=== PATIENT | male | born 1975 | race Caucasian/White ===

== ENCOUNTER 2024-06-24 13:42 | Emergency (ER) | payer OTHER, SELFPAY ==
[2024-06-24 14:01] VITALS: BP 210/130; PULSE 92; TEMP 36.7; O2SAT 97; BMI 39.6
--- NOTE | 2024-06-24 14:19 | XR_ITS ---
The [place] [address] Patient Name: MAGALY CARSON MRN: [id number] date: 1975 Sex: M Assigned Patient Location: ER Current Patient Location: ER Accession/Order Number: [id number] Exam Date: 06/24/2024 14:51 Report Date: 06/24/2024 15:12 At the request of: WILFRID ZIMMERMAN Procedure: XR lumbar spine 2-3V EXAMINATION: XR lumbar spine 2-3V HISTORY: fall COMPARISON: No relevant comparison available. FINDINGS: BONES: Normal alignment with no acute fracture or spondylolisthesis. Moderate spondylosis. Moderate to severe facet osteoarthropathy DISC SPACES: Normal. No significant disc height narrowing, subluxation, or endplate abnormality. PARASPINOUS: Negative. No paraspinous abnormality is seen. OTHER: Vascular calcifications XR/XR lumbar spine 2-3V IMPRESSION: Moderate degenerative changes. Electronically authenticated by: NOEMI MARTINEZ Date: 06/24/2024 15:12
--- NOTE | 2024-06-24 14:19 | XR_ITS ---
The [address] [address] Patient Name: MAGALY CARSON MRN: [id number] date: 1975 Sex: M Assigned Patient Location: ER Current Patient Location: ER Accession/Order Number: [id number] Exam Date: 06/24/2024 14:51 Report Date: 06/24/2024 15:14 At the request of: WILFRID ZIMMERMAN Procedure: XR hip LT 2V w/ pelvis PROCEDURE: XR hip LT 2V w/ pelvis COMPARISON: None. HISTORY: fall FINDINGS: BONES:No acute fracture or dislocation. Mild bilateral hip osteoarthropathy with marginal osteophyte formation and joint space narrowing SOFT TISSUES:Negative. No visible soft tissue swelling. EFFUSION:None visible. OTHER: Negative. XR/XR hip LT 2V w/ pelvis IMPRESSION: No acute fracture. Electronically authenticated by: NOEMI MARTINEZ Date: 06/24/2024 15:14
--- NOTE | 2024-06-24 14:20 | ED.GENADUL1 ---
HPI HPI - General Adult General Chief complaint: Fall Stated complaint: FALL AT WORK Time Seen by Provider: 06/24/24 14:07 Source: patient Mode of arrival: walk-in Limitations: no limitations History of Present Illness HPI narrative: Patient is a 48-year-old male who presents to the emergency department for pain in the left low back into the left hip. 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 He is able to ambulate but reports significant pain with doing so. He has no peripheral paresthesias or urinary incontinence. He denies head injury and has no pain to the head, neck or upper back. No medications taken prior to arrival. He is noted to be hypertensive at initial interview, he states he does not take any blood pressure medications. No other focal medical complaints. Related Data Home Medications ?Medication ?Instructions ?Recorded ?Confirmed No Known Home Medications 06/24/24 06/24/24 Previous Rx's ?Medication ?Instructions ?Recorded hydrocodone 5 mg-acetaminophen 325 1 tab PO Q6H PRN pain 3 days #12 06/24/24 mg tablet tabs ketorolac 10 mg tablet 10 mg PO TID PRN pain #10 tabs 06/24/24 methocarbamol 750 mg tablet 750 mg PO TID PRN pain #20 tabs 06/24/24 Allergies Allergy/AdvReac Type Severity Reaction Status Date / Time Penicillins Allergy Severe Hives Verified 06/24/24 14:07 Opioid HPI Opioid Management Most Recent Opioid Data: Last Pain Scale 10 06/24/24 14:29 06/24/24 Last MAR Pain Assessment 06/24/24 14:29 Review of Systems ROS Constitutional Denies: fever or chills Ears, nose, mouth, and throat Denies: neck pain Cardiovascular Denies: chest pain Respiratory Denies: shortness of breath Gastrointestinal Denies: nausea or vomiting Musculoskeletal Reports: back pain, extremity pain and joint pain; Denies: neck pain or extremity swelling Integumentary/Breast Denies: rash Neurological Denies: numbness in extremities or weakness in extremities Hematologic/Lymphatic Denies: easy bruising or easy bleeding PFSH PFS Social History Little interest or pleasure in doing things: not at all Feeling down, depressed, or hopeless: not at all Exam Narrative Exam Narrative: Gen.: Awake, alert, in no distress Head: Normocephalic, atraumatic ENT: Moist mucous membranes Respiratory: No respiratory distress Back: Diffuse mild tenderness of the lumbar spine and paraspinal muscles of the left low back as well as the left posterior hip. No bony point tenderness or obvious deformity. Extremities: Moves extremities equally, normal dorsiflexion and plantarflexion of the left lower extremity with normal hip flexion and no decrease in sensation to the medial left thigh. Psych: Normal mood and affect Neuro: No focal neuro deficit Skin: Warm, dry, intact Constitutional Vital Signs, click to edit/add: Last Vital Signs Temp 98.1 F 06/24/24 14:01 Pulse 92 H 06/24/24 14:01 Resp 20 06/24/24 14:01 BP 180/110 H 06/24/24 15:17 Pulse Ox 97 06/24/24 14:01 Course Vital Signs Vital signs: Vital Signs Temperature 98.1 F 06/24/24 14:01 Pulse Rate 92 H 06/24/24 14:01 Respiratory Rate 20 06/24/24 14:01 Blood Pressure 210/130 H 06/24/24 14:01 Pulse Oximetry 97 06/24/24 14:01 Temperature 98.1 F 06/24/24 14:01 Pulse Rate 92 H 06/24/24 14:01 Respiratory Rate 20 06/24/24 14:01 Blood Pressure 180/110 H 06/24/24 15:17 Pulse Oximetry 97 06/24/24 14:01 Medical Decision Making [facility] Narrative Medical decision making narrative: Patient was treated with analgesics in the ER, blood pressure did improve on recheck, however he should follow closely with his primary care provider for reevaluation of his blood pressure. He was made aware of this. X-rays of the lumbar spine and pelvis, left hip are unremarkable. Patient was given a short course of analgesics for home. Follow-up with occupational health and return to the ER if symptoms change or worsen. SHARED APC VISIT, PHYSICIAN ATTESTATION: [id number] I performed a substantive part of the MDM during the patient?s E/M visit. I personally evaluated and examined the patient. I personally made or approved the documented management plan and acknowledge its risk of complications. Medical Records Medical records reviewed: Yes I reviewed the patient's medical records Imaging Data XR lumbar: Attestation: I have reviewed the pertinent imaging results. Radiologist's impression: ITS Impressions Hip/Pelvis X-Ray 06/24/24 14:19 IMPRESSION: No acute fracture. Electronically authenticated by: NOEMI MARTINEZ Date: 06/24/2024 15:14 Lumbar Spine X-Ray 06/24/24 14:19 IMPRESSION: Moderate degenerative changes. Electronically authenticated by: NOEMI MARTINEZ Date: 06/24/2024 15:12 Discharge Plan Discharge Chief Complaint: Fall Clinical Impression: Fall, Low back pain Patient Disposition: Home, Self-Care Time of Disposition Decision: 15:34 Condition: Good Prescriptions / Home Meds: New hydrocodone-acetaminophen 5-325 mg tablet 1 tab PO Q6H PRN (Reason: pain) 3 Days Qty: 12 0RF Rx Instructions: DX: M54.5 ketorolac 10 mg tablet 10 mg PO TID PRN (Reason: pain) Qty: 10 0RF methocarbamol 750 mg tablet 750 mg PO TID PRN (Reason: pain) Qty: 20 0RF No Action No Known Home Medications Print Language: Tunisian Instructions: Acute Low Back Pain (ED) Additional Instructions: Follow up with occupational health for your injury, please recheck with your doctor for your blood pressure Referrals: Physician,Non-Staff, MD [Primary Care Provider] - 1 week
[2024-06-24] MEDS: KETOROLAC TROMETHAMINE 60 MG/2 ML VIAL IM (14:28)
[2024-06-24] MEDS: HYDROCODONE/ACET 5-325 MG TABLET 1 TAB PO (14:29)
[2024-06-24] MEDS: ORPHENADRINE 60 MG/ 2 ML VIAL IM (14:29)
[2024-06-24 15:17] VITALS: BP 180/110
== END 2024-06-24 15:57 | disposition home or self-care (01) ==
PROVIDERS: Emergency Provider Emergency Medicine
DX: M54.50 Low back pain, unspecified (principal); M25.552 Pain in left hip
CPT/HCPCS: 72100; 73502; 96372; 99284; J1885; J2360

== ENCOUNTER 2024-09-28 06:36 | Inpatient (IN) | payer BC, SELFPAY ==
[2024-09-28] VITALS (25 sets, daily range): BP systolic 145–218; BP diastolic 74–139; PULSE 60–102; TEMP 36.6–37.1; O2SAT 88–98; BMI 38.5; BMI 40.5
--- OUTSIDE RECORDS SUMMARY | 2024-09-28 06:43 | XMS_ITS | CCD ---
[facility] Name Value Interpretation Reference Range Facil ity COVID-19 Antigenon 1 COVID-19 Antigen Reason for Exam Fever, unspecified fever cause;Body aches Nasal Reason for Exam: Fever, unspecified fever cause;Body aches Healthcare Worker?: No : Nasal Rebecca Reference Rebecca Reference Negative SARS-CoV+SARS-CoV-2 (COVID-19) Ag [Presence] in Respiratory specimen by Rapid immunoassay Negative for SARS Antigen by SYED COVID19 Blank Space Rebecca Disclaimer Negative results, from patients with symptom Rebecca Disclaimer onset beyond five days, should be treated as Rebecca Disclaimer presumptive and confirmation with a molecular Rebecca Disclaimer assay, if necessary, for patient management, Rebecca Disclaimer may be performed. Negative results do not rule Rebecca Disclaimer out COVID-19 and should not be used as the sole Rebecca Disclaimer basis for treatment or patient management Rebecca Disclaimer decisions, including infection control decisions. Rebecca Disclaimer Negative results should be considered in the Rebecca Disclaimer context of a patient's recent exposures, history Rebecca Disclaimer and the presence of clinical signs and symptoms Rebecca Disclaimer consistent with COVID-19. COVID19 Blank Space Rebecca Disclaimer The Rebecca SARS Antigen SYED does not differentiate Rebecca Disclaimer between SARS-CoV and SARS-CoV-2. COVID19 Blank Space Rebecca Disclaimer This test was developed and its performance Rebecca Disclaimer characteristic determined by [employer] and Rebecca Disclaimer validated at [facility]. This Rebecca Disclaimer test has not been FDA cleared or approved. This Rebecca Disclaimer test has been authorized by FDA under an Emergency Use Rebecca Disclaimer Authorization (EUA). This test has been validated Rebecca Disclaimer in accordance with the FDA's Guidance Document (Policy Rebecca Disclaimer for Diagnostics Testing in Laboratories Certified to Rebecca Disclaimer Perform High Complexity Testing under CLIA prior to Rebecca Disclaimer Emergency Use Authorization for Coronavirus Rebecca Disclaimer iseas during the Public Health Emergency) Rebecca Disclaimer issued on September 19, 2019. This test is only authorized Rebecca Disclaimer for the duration of time the declaration that Rebecca Disclaimer circumstances exist justifying the authorization of Rebecca Disclaimer the emergency use of in vitro diagnostic tests for Rebecca Disclaimer detection of SARS-CoV-2 virus and/or diagnosis of Rebecca Disclaimer COVID-19 infection under section 564(b)(1) of the Rebecca Disclaimer Act, 21 U.S.C. 360bbb-3(b)(1), unless the Rebecca Disclaimer authorization is terminated or revoked sooner. PERFORMED BY: [facility] [address] [place] [address] PATHOLOGIST CLAY TEMPERER PATTI DE M.D. Normal [facility] Comment on above: Performed By: #### S NATALYA COVID-19 REBECCA #### [facility] [address] [place] [id number] [facility] Rebecca Ag Negativeon 01-26-20 21 Rebecca Ag Negative Negative Normal Negative [facility] Comment on above: Result Comment: This is a duplicate Rebecca SARS Antigen (SYED) result to be used for statistical tracking purpose only. PERFORMED BY: [place] [address] PATHOLOGIST CLAY TEMPERER PATTI DE M.D. Performed By: #### S OFIANEG, COVID-19 REBECCA #### [address] Complete Blood Count Auto Di ffon 10-26-2020 Basophils (Bld) [#/Vol] 0.1 10*3/uL Normal 0.0-0.2 [facility] Comment on above: Order Comment: Reaso n for Exam Essential hypertension Result Comment: PERF ORMED BY: [place] [address] PATHOLOGIST CLAY TEMPERER PATTI DE M.D. Performed By: #### V [id number], CMP, CBC, LIPID #### [address] Basophils/100 WBC (Bld) 1.0 % Normal . [facility] Comment on above: Order Comment: Reaso n for Exam Essential hypertension Performed By: #### V [id number], CMP, CBC, LIPID #### [address] Eosinophils (Bld) [#/Vol] 0.4 10*3/uL Normal 0.0-0.45 [facility] Comment on above: Order Comment: Reaso n for Exam Essential hypertension Performed By: #### V [id number], CMP, CBC, LIPID #### [address] Eosinophils/100 WBC (Bld) 4.7 % Normal . [facility] Comment on above: Order Comment: Reaso n for Exam Essential hypertension Performed By: #### V [id number], CMP, CBC, LIPID #### [address] Erythrocyte distribution width (RBC) [Ratio] 14.0 % Normal 12.0-14.8 [facility] Comment on above: Order Comment: Reaso n for Exam Essential hypertension Performed By: #### V [id number], CMP, CBC, LIPID #### [address] Hematocrit (Bld) [Volume fraction] 47.4 % Normal 38.8-50.0 [facility] Comment on above: Order Comment: Reaso n for Exam Essential hypertension Performed By: #### V [id number], CMP, CBC, LIPID #### [address] Hemoglobin (Bld) [Mass/Vol] 16.3 g/dL Normal 13.0-17.0 [facility] Comment on above: Order Comment: Reaso n for Exam Essential hypertension Performed By: #### V [id number], CMP, CBC, LIPID #### [address] Lymphocytes (Bld) [#/Vol] 2.3 10*3/uL Normal 1.00-4.8 [facility] Comment on above: Order Comment: Reaso n for Exam Essential hypertension Performed By: #### V [id number], CMP, CBC, LIPID #### [address] Lymphocytes/100 WBC (Bld) 26.7 % Normal . [facility] Comment on above: Order Comment: Reaso n for Exam Essential hypertension Performed By: #### V [id number], CMP, CBC, LIPID #### [address] MCH (RBC) [Entitic mass] 30.8 pg Normal 27.5-35.2 [facility] Comment on above: Order Comment: Reaso n for Exam Essential hypertension Performed By: #### V [id number], CMP, CBC, LIPID #### [address] MCV (RBC) [Entitic vol] 89.7 fL Normal 83.5-101 [facility] Comment on above: Order Comment: Reaso n for Exam Essential hypertension Performed By: #### V [id number], CMP, CBC, LIPID #### [facility] [address] Mean Corpuscular HGB Conc 34.4 g/dL Normal 32.5-35.6 [facility] Comment on above: Order Comment: Reaso n for Exam Essential hypertension Performed By: #### V [id number], CMP, CBC, LIPID #### [facility] [address] Monocytes (Bld) [#/Vol] 0.9 10*3/uL High 0.0-0.8 [facility] Comment on above: Order Comment: Reaso n for Exam Essential hypertension Performed By: #### V [id number], CMP, CBC, LIPID #### [facility] [address] [place] [address] Monocytes/100 WBC (Bld) 10.4 % Normal . [facility] Comment on above: Order Comment: Reaso n for Exam Essential hypertension Performed By: #### V [id number], CMP, CBC, LIPID #### [address] Neutrophils (Bld) [#/Vol] 5.0 10*3/uL Normal 1.8-7.7 [facility] Comment on above: Order Comment: Reaso n for Exam Essential hypertension Performed By: #### V [id number], CMP, CBC, LIPID #### [address] Neutrophils/100 WBC (Bld) 57.2 % Normal . [facility] Comment on above: Order Comment: Reaso n for Exam Essential hypertension Performed By: #### V [id number], CMP, CBC, LIPID #### [facility] [address] [place] [address] [place] Nucleated RBC/100 WBC (Bld) [Ratio] 0.1 % Normal 0-0.5 [facility] Comment on above: Order Comment: Reaso n for Exam Essential hypertension Performed By: #### V [id number], CMP, CBC, LIPID #### [place] [address] [place] Platelet mean volume (Bld) [Entitic vol] 11.0 fL High 6.6-10.1 [facility] Comment on above: Order Comment: Reaso n for Exam Essential hypertension Performed By: #### V [id number], CMP, CBC, LIPID #### [facility] [address] Platelets (Bld) [#/Vol] 159 10*3/uL Normal 150-450 [facility] Comment on above: Order Comment: Reaso n for Exam Essential hypertension Performed By: #### V [id number], CMP, CBC, LIPID #### [facility] [address] RBC (Bld) [#/Vol] 5.29 10*6/uL Normal 3.90-5.60 [facility] Comment on above: Order Comment: Reaso n for Exam Essential hypertension Performed By: #### V [id number], CMP, CBC, LIPID #### [facility] [address] [place] [address] WBC (Bld) [#/Vol] 8.8 10*3/uL Normal 4.5-11.0 [facility] Comment on above: Order Comment: Reaso n for Exam Essential hypertension Performed By: #### V [id number], CMP, CBC, LIPID #### [facility] [address] [place] [address] Comprehensive Metabolic Pane shirley 10-26-2020 Albumin [Mass/Vol] 3.9 g/dL Normal 3.2-5.5 [facility] Comment on above: Order Comment: PT FA STED 11 HRS Reason for Exam Essential hypertension Reason for Exam Essential hypertension;Vitamin D deficiency Performed By: #### V [id number], CMP, CBC, LIPID #### [facility] [address] Albumin/Globulin [Mass ratio] 1.6 {ratio} Normal [facility] Comment on above: Order Comment: PT FA STED 11 HRS Reason for Exam Essential hypertension Reason for Exam Essential hypertension;Vitamin D deficiency Performed By: #### V [id number], CMP, CBC, LIPID #### [facility] [address] [place] [address] [place] ALP [Catalytic activity/Vol] 75 U/L Normal 32-92 [facility] Comment on above: Order Comment: PT FA STED 11 HRS Reason for Exam Essential hypertension Reason for Exam Essential hypertension;Vitamin D deficiency Performed By: #### V [id number], CMP, CBC, LIPID #### [facility] [address] [place] [address] [place] ALT [Catalytic activity/Vol] 40 U/L Normal 10-60 [facility] Comment on above: Order Comment: PT FA STED 11 HRS Reason for Exam Essential hypertension Reason for Exam Essential hypertension;Vitamin D deficiency Performed By: #### V [id number], CMP, CBC, LIPID #### [facility] [address] [place] [address] [facility] AST [Catalytic activity/Vol] 23 U/L Normal 10-42 [facility] Comment on above: Order Comment: PT FA STED 11 HRS Reason for Exam Essential hypertension Reason for Exam Essential hypertension;Vitamin D deficiency Performed By: #### V [id number], CMP, CBC, LIPID #### [facility] [address] [place] [id number] [place] Bilirubin [Mass/Vol] 0.5 mg/dL Normal 0.3-1.2 [facility] Comment on above: Order Comment: PT FA STED 11 HRS Reason for Exam Essential hypertension Reason for Exam Essential hypertension;Vitamin D deficiency Performed By: #### V [id number], CMP, CBC, LIPID #### [facility] [address] [place] [address] [place] Calcium [Mass/Vol] 9.3 mg/dL Normal 8.2-10.2 [facility] Comment on above: Order Comment: PT FA STED 11 HRS Reason for Exam Essential hypertension Reason for Exam Essential hypertension;Vitamin D deficiency Performed By: #### V [id number], CMP, CBC, LIPID #### [facility] [address] [place] [id number] [place] Chloride [Moles/Vol] 102 mmol/L Normal 95-114 [facility] Comment on above: Order Comment: PT FA STED 11 HRS Reason for Exam Essential hypertension Reason for Exam Essential hypertension;Vitamin D deficiency Performed By: #### V [id number], CMP, CBC, LIPID #### [facility] [address] [place] [id number] [place] CO2 [Moles/Vol] 27.8 mmol/L Normal 22.0-30.0 [facility] Comment on above: Order Comment: PT FA STED 11 HRS Reason for Exam Essential hypertension Reason for Exam Essential hypertension;Vitamin D deficiency Performed By: #### V [id number], CMP, CBC, LIPID #### [facility] [address] Creatinine [Mass/Vol] 1.17 mg/dL Normal 0.64-1.27 [facility] Comment on above: Order Comment: PT FA STED 11 HRS Reason for Exam Essential hypertension Reason for Exam Essential hypertension;Vitamin D deficiency Performed By: #### V [id number], CMP, CBC, LIPID #### [facility] [address] [place] [address] Estimated GFR ( Henny > 60 [facility] Comment on above: Order Comment: PT FA STED 11 HRS Reason for Exam Essential hypertension Reason for Exam Essential hypertension;Vitamin D deficiency Result Comment: GFR estimated reference range: According to KDOQI guidelines, <60 ml/min/1.73m2 is sufficient to diagnose a patient with chronic kidney disease. Performed By: #### V [id number], CMP, CBC, LIPID #### [facility] [address] [place] [address] Estimated GFR (Non- Am > 60 [facility] Comment on above: Order Comment: PT FA STED 11 HRS Reason for Exam Essential hypertension Reason for Exam Essential hypertension;Vitamin D deficiency Performed By: #### V [id number], CMP, CBC, LIPID #### [facility] [address] [place] [address] [place] Globulin (S) [Mass/Vol] 2.5 g/dL [facility] Comment on above: Order Comment: PT FA STED 11 HRS Reason for Exam Essential hypertension Reason for Exam Essential hypertension;Vitamin D deficiency Performed By: #### V [id number], CMP, CBC, LIPID #### [facility] [address] [place] [id number] [place] Glucose [Mass/Vol] 114 mg/dL High 70-100 [facility] Comment on above: Order Comment: PT FA STED 11 HRS Reason for Exam Essential hypertension Reason for Exam Essential hypertension;Vitamin D deficiency Result Comment: [place] Glucose Reference Range is dependent on time and content of last meal. Glucose of more than 200 mg/dL in a nonstressed, ambulatory subject supports the diagnosis of Diabetes Mellitus. ADA recommended reference range Performed By: #### V [id number], CMP, CBC, LIPID #### [facility] [address] [place] [id number] [facility] Potassium [Moles/Vol] 3.8 mmol/L Normal 3.5-5.1 [facility] Comment on above: Order Comment: PT FA STED 11 HRS Reason for Exam Essential hypertension Reason for Exam Essential hypertension;Vitamin D deficiency Performed By: #### V [id number], CMP, CBC, LIPID #### [facility] [address] [place] [address] [facility] Protein [Mass/Vol] 6.4 g/dL Normal 6.1-7.9 [facility] Comment on above: Order Comment: PT FA STED 11 HRS Reason for Exam Essential hypertension Reason for Exam Essential hypertension;Vitamin D deficiency Performed By: #### V [id number], CMP, CBC, LIPID #### [facility] [address] [place] [address] [place] Sodium [Moles/Vol] 137 mmol/L Normal 136-146 [facility] Comment on above: Order Comment: PT FA STED 11 HRS Reason for Exam Essential hypertension Reason for Exam Essential hypertension;Vitamin D deficiency Performed By: #### V [id number], CMP, CBC, LIPID #### [facility] [address] [place] [address] [place] Urea nitrogen [Mass/Vol] 15 mg/dL Normal 9-23 [facility] Comment on above: Order Comment: PT FA STED 11 HRS Reason for Exam Essential hypertension Reason for Exam Essential hypertension;Vitamin D deficiency Performed By: #### V [id number], CMP, CBC, LIPID #### [facility] [address] [place] [address] [facility] Lipid Panelon 10-26-2020 Cholesterol [Mass/Vol] 205 mg/dL High 140-200 [facility] Comment on above: Order Comment: PT FA STED 11 HRS Reason for Exam Essential hypertension Reason for Exam Essential hypertension;Vitamin D deficiency Result Comment: Chol less than 200 mg/dl low risk Chol 201-239 mg/dl borderline risk Chol 240 mg/dl and greater high risk Performed By: #### V [id number], CMP, CBC, LIPID #### [facility] [address] [place] [id number] [place] Cholesterol in HDL [Mass/Vol] 24 mg/dL Low 29-71 [facility] Comment on above: Order Comment: PT FA STED 11 HRS Reason for Exam Essential hypertension Reason for Exam Essential hypertension;Vitamin D deficiency Result Comment: HDL CHOL ATP-III CLASSIFICATION Cardiovascular Risk HDL > or equal to 60 mg/dL LOW HDL < 40 mg/dL HIGH Performed By: #### V [id number], CMP, CBC, LIPID #### [facility] [address] Cholesterol.total/Ch olesterol in HDL [Mass ratio] 8.5 {ratio} Normal <5.0 [facility] Comment on above: Order Comment: PT FA STED 11 HRS Reason for Exam Essential hypertension Reason for Exam Essential hypertension;Vitamin D deficiency Performed By: #### V [id number], CMP, CBC, LIPID #### [facility] [address] [place] [address] [place] LDL Cholesterol,Calculat ed 131 mg/dL High 0-100 [facility] Comment on above: Order Comment: PT FA STED 11 HRS Reason for Exam Essential hypertension Reason for Exam Essential hypertension;Vitamin D deficiency Result Comment: LDL ATP III CLASSIFICATION LDL less than 100 mg/dL Optimal LDL 100-129 mg/dL Near or above optimal LDL 130-159 mg/dL Borderline high LDL 160-189 mg/dL High LDL greater than 189 mg/dL Very high Performed By: #### V [id number], CMP, CBC, LIPID #### [facility] [address] [place] [address] [place] Triglyceride w/Reflex 248 mg/dL High 35-149 [facility] Comment on above: Order Comment: PT FA STED 11 HRS Reason for Exam Essential hypertension Reason for Exam Essential hypertension;Vitamin D deficiency Result Comment: TRIG ATP III CLASSIFICATION TRIG less than 150 mg/dL Normal TRIG 150-199 mg/dL Borderline high TRIG 200-500 mg/dL High TRIG greater than 500 mg/dL Very high Standard traceable to the Center for Disease Conrtrol and Prevention (CDC) test method. Performed By: #### V [id number], CMP, CBC, LIPID #### [facility] [address] VLDL CHOLESTEROL 49 mg/dL Normal [facility] Comment on above: Order Comment: PT FA STED 11 HRS Reason for Exam Essential hypertension Reason for Exam Essential hypertension;Vitamin D deficiency Performed By: #### V [id number], CMP, CBC, LIPID #### [facility] [address] [place] [id number] [facility] Vitamin D 25 Hydroxy Totalon 10-26-2020 Vitamin D 25 Hydroxy Total 50.8 ng/mL Normal 30-100 [facility] Comment on above: Order Comment: PT FA STED 11 HRS Reason for Exam Essential hypertension Reason for Exam Essential hypertension;Vitamin D deficiency Result Comment: [place] MIN D STATUS 25(OH)VITAMIN D RANGE (ng/mL) Deficient <20 Insufficient 20 to <30 Sufficient 30 to 100 Reference: Aranza MF,Kindra NC, [place]co NELSON, et al. Evaluation,treatment, and prevention of vitamin D deficiency; an Endocrine Society clinical practice guideline. JCEM. 2010; 96(7):1911-30. PERFORMED BY: [place] [address] PATHOLOGIST CLAY TEMPERER PATTI DE M.D. Performed By: #### V [id number], CMP, CBC, LIPID #### [facility] [address] Summary Purpose Family History No Family History Records Found Advance Directives No Advanced Directives Records Found Additional Source Comments (unrecognized sect ion and content) No Status Records Found INFORMATION SOURCE (unrecogn ized section and content) DATE CREATED AUTHOR 07/19/[address] [facility] FOR RECORDS PERTAINING TO PATIENTS WHO ARE OR HAVE BEEN ENROLLED IN A CHEMICAL DEPENDENCY/SUBSTANCEABUSE PROGRAM, SOME INFORMATION MAY BE OMITTED. This clinical summary was aggregated from multiple sources. Caution should be exercised in using it in the provision of clinical care. This summary normalizes information from multiple sources, and as a consequence, information in this document may materially change the coding, format and clinical context of patient data. In addition, data may be omitted in some cases. CLINICAL DECISIONS SHOULD BE BASED ON THE PRIMARY CLINICAL RECORDS. [facility] [employer] [facility] provides no warranty or guarantee of the accuracy or completeness of information in this document.
--- NOTE | 2024-09-28 07:02 | ECG_ITS ---
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 Measurements Intervals [place] Rate: 98 P: 60 OR: 212 QRS: 67 QRSD: 106 T: 61 QT: 374 QTc: 430 Interpretive Statements 1100 Sinus rhythm 2231 First degree AV block 4068 Nonspecific [place] abnormality 9150 abnormal ECG No previous ECG available for comparison Electronically Signed On 09-28-2024 10:41:15 EDT by MARKEL CORADO M.D.
--- NOTE | 2024-09-28 07:12 | ED_ITS ---
HPI HPI - General Adult General Chief complaint: Shortness of Breath/Dyspnea Stated complaint: sob, chest pain Time Seen by Provider: 09/28/24 07:01 Source: patient Mode of arrival: walk-in Limitations: no limitations History of Present Illness HPI narrative: 49-year-old male presents to the emergency department for shortness of breath and chest pain. He has had this for the past 3 days. The shortness of breath gets much worse when he lays down flat and states sometimes his ankle swell. No fever or productive cough. He has not seen a doctor in a few years. He has been having intermittent sharp pains on the left side of his chest as well. Related Data Home Medications ?Medication ?Instructions ?Recorded ?Confirmed No Known Home Medications 06/24/24 09/28/24 Previous Rx's ?Medication ?Instructions ?Recorded hydrocodone 5 mg-acetaminophen 325 1 tab PO Q6H PRN pain 3 days #12 06/24/24 mg tablet tabs ketorolac 10 mg tablet 10 mg PO TID PRN pain #10 tabs 06/24/24 methocarbamol 750 mg tablet 750 mg PO TID PRN pain #20 tabs 06/24/24 Allergies Allergy/AdvReac Type Severity Reaction Status Date / Time Penicillins Allergy Severe Hives Verified 09/28/24 06:40 Opioid HPI Opioid Management Most Recent Opioid Data: Last Pain Scale 4 09/28/24 06:49 09/28/24 Review of Systems ROS Narrative A ten point review of systems is negative except as noted above. PFSH PFSH Social History Little interest or pleasure in doing things: not at all Feeling down, depressed, or hopeless: not at all Exam Narrative Exam Narrative: Nurses note and vital signs reviewed and patient is not hypoxic. General: The patient appears in no acute respiratory distress Skin: Warm, dry, no pallor noted. There is no rash noted. Head: Normocephalic, atraumatic Eye: Normal conjunctiva, no drainage Ears, Nose, Mouth, and Throat: oral mucosa is moist. Nares patent. Cardiovascular: Regular Rate and Rhythm Respiratory: Patient is in no distress, no accessory muscle use, lungs are clear to auscultation, no wheezing, rales or rhonchi Back: non-tender GI: Soft obese and nontender Musculoskeletal: The patient has no evidence of calf tenderness, symmetrical pulses noted bilaterally Neurological: A&O, normal speech Psychiatric: Cooperative Constitutional Vital Signs, click to edit/add: Last Vital Signs Temp 98.3 F 09/28/24 06:41 Pulse 88 09/28/24 08:31 Resp 21 H 09/28/24 08:31 BP 176/99 H 09/28/24 08:31 Pulse Ox 94 L 09/28/24 08:31 O2 Del Method Room Air 09/28/24 06:41 Course Vital Signs Vital signs: Vital Signs Temperature 98.3 F 09/28/24 06:41 Pulse Rate 98 H 09/28/24 06:41 Respiratory Rate 20 09/28/24 06:41 Blood Pressure 218/139 H 09/28/24 06:41 Pulse Oximetry 95 09/28/24 06:41 Oxygen Delivery Method Room Air 09/28/24 06:41 Temperature 98.3 F 09/28/24 06:41 Pulse Rate 88 09/28/24 08:31 Respiratory Rate 21 H 09/28/24 08:31 Blood Pressure 176/99 H 09/28/24 08:31 Pulse Oximetry 94 L 09/28/24 08:31 Oxygen Delivery Method Room Air 09/28/24 06:41 Medical Decision Making MDM Narrative Medical decision making narrative: CHF is identified. This has not been previously identified. He was given IV Lasix and is being admitted. Treatment diagnosis and disposition were discussed with the patient. Differential Diagnosis Differential Diagnosis: CHF, pneumonia, pulmonary edema Lab Data Lab results reviewed: Yes I reviewed the patient's lab results Labs: Lab Results 09/28/24 09/28/24 Range/Units 06:46 07:13 WBC 14.1 H (4.0-11.0) 10^3/uL RBC 6.11 H (4.70-6.10) 10^6/uL Hgb 17.5 (14.0-18.0) g/dL Hct 52.9 (42.0-54.0) % MCV 86.6 (80.0-94.0) fL MCH 28.6 (25.9-34.0) pg MCHC 33.1 (29.9-35.2) g/dL RDW 13.7 (11.0-15.0) % Plt Count 169 (150-450) 10^3/uL MPV 13.3 (9.5-13.5) fL Neut % (Auto) 65.8 (43.0-75.0) % Lymph % (Auto) 22.0 (20.5-60.0) % [place] % (Auto) 7.9 (1.7-12.0) % Eos % (Auto) 3.1 (0.9-7.0) % Baso % (Auto) 0.8 (0.2-2.0) % Neut # (Auto) 9.2 H (1.4-6.5) 10^3/uL Lymph # (Auto) 3.1 (1.2-3.8) 10^3/uL [place]och # (Auto) 1.1 H (0.3-0.8) 10^3/uL Eos # (Auto) 0.4 (0.0-0.7) 10^3/uL Baso # (Auto) 0.1 (0.0-0.1) 10^3/uL Abs Immat Gran (auto) 0.06 H (0.00-0.03) 10^3/uL Imm/Tot Granulo (auto) 0.4 (0.0-0.5) % Sodium 139 (136-145) mmol/L Potassium 3.3 L (3.5-5.1) mmol/L Chloride 104 (98-107) mmol/L Carbon Dioxide 30.8 (21.0-32.0) mmol/L Anion Gap 7.5 BUN 13.0 (7.0-18.0) mg/dL Creatinine 1.20 (0.70-1.30) mg/dL Est GFR ( Amer) >60 (>=60 mL/min/1.73m^2) Est GFR (Non-Af Amer) >60 (>=60 mL/min/1.73m^2) BUN/Creatinine Ratio 10.8 Glucose 145 H (74-106) mg/dL Calcium 9.2 (8.5-10.1) mg/dL Troponin I High Sens 25.9 (4.0-76.1) pg/mL NT-Pro-B Natriuret Pep 675.0 H (<=450.0) pg/mL Urine Color Lt. yellow (YELLOW) Urine Clarity Clear (CLEAR) Urine pH 7.0 (5.0-9.0) Ur Specific [place] 1.020 (1.005-1.025) Urine Protein 100 A (NEG/TRACE) mg/dL Urine Glucose (UA) Negative (NEGATIVE) mg/dL Urine Ketones Negative (NEGATIVE) mg/dL Urine Occult Blood Negative (NEGATIVE) Urine Nitrite Negative (NEGATIVE) Urine Bilirubin Negative (NEGATIVE) Urine Urobilinogen 1.0 (0.2-1.0) EU/dL Ur Leukocyte Esterase Negative (NEGATIVE) Urine RBC 0-2 (0-2) #/HPF Urine WBC 0-2 A (NONE SEEN) #/HPF Ur Squamous Epith Cells None seen (NONE/RARE) #/LPF Urine Crystals None seen (None Seen) #/HPF Urine Bacteria Trace A (NONE SEEN) #/HPF Urine Casts None seen (NONE SEEN) #/LPF Urine Mucus Trace A (NONE SEEN) Imaging Data Chest x-ray: My impression: CHF ECG Data Attestation: I personally reviewed and interpreted this ECG as follows: (EKG on my interpretation shows sinus rhythm with first-degree AV block and rate of 98) Critical Care Time Critical Care Time Critical Care Time: Yes Total Critical Care Time: 40 Attestation: Due to the high probability of sudden and clinically significant deterioration in the patient's condition he/she required the highest level of my preparedness to intervene urgently I provided critical care time including documentation time, medication orders and management, reevaluation, vital sign assessment, ordering and reviewing of lab tests, ordering and reviewing of x-ray studies, and admission orders. Aggregate critical care time is 40 minutes including only time during which I was engaged in work directly related to his/her care and did not include time spent treating other patients simultaneously. Discharge Plan Discharge Chief Complaint: Shortness of Breath/Dyspnea Clinical Impression: Congestive heart failure Patient Disposition: Admitted As Inpatient Time of Disposition Decision: 08:41 Condition: Fair
[2024-09-28 07:22] LABS: Bilirubin Urine NEGATIVE (NEGATIVE); Blood Urine NEGATIVE (NEGATIVE); Clarity Urine CLEAR (CLEAR); Color Urine LT. YELLOW (YELLOW); Glucose Urine UA NEGATIVE (NEGATIVE); Ketones Urine NEGATIVE (NEGATIVE); Leukocyte Esterase Urine NEGATIVE (NEGATIVE); Nitrite Urine NEGATIVE (NEGATIVE); Protein Urine 100 mg/dL (NEG/TRACE)
[2024-09-28] MEDS: FUROSEMIDE 40 MG/4 ML VIAL IVP ×2 (07:24→10:52)
[2024-09-28 07:34] LABS: Bacteria Urine TRACE #/HPF (NONE SEEN); Cast Seen? NONE SEEN #/LPF (NONE SEEN); Crystals Seen? None Seen #/HPF (None Seen); Mucus Urine TRACE (NONE SEEN); RBC Urine 0-2 #/HPF (0-2); Squamous Epithelial Cell Urine NONE SEEN #/LPF (NONE/RARE); WBC Urine 0-2 #/HPF (NONE SEEN)
--- NOTE | 2024-09-28 07:37 | PC.NURSE ---
Patient has not seen PCP in years, does not take any prescription medications and denies any diagnosis.
--- NOTE | 2024-09-28 07:38 | PC.NURSE ---
Patient reports SOB past 4 days and difficulty laying flat. 1+ edema to BLE.
[2024-09-28 07:48] LABS: Basophils Absolute Auto 0.1 10^3/uL (0.0-0.1); Basophils Percent Auto 0.8 % (0.2-2.0); Eosinophils Absolute Auto 0.4 10^3/uL (0.0-0.7); Eosinophils Percent Auto 3.1 % (0.9-7.0); Hematocrit 52.9 % (42.0-54.0); Hemoglobin 17.5 g/dL (14.0-18.0); Immature Granulocytes Abs Auto 0.06 10^3/uL (0.00-0.03); Immature Granulocytes Pct Auto 0.4 % (0.0-0.5); Lymphocytes Absolute Auto 3.1 10^3/uL (1.2-3.8); Mean Corpuscular HGB Conc 33.1 g/dL (29.9-35.2); Mean Corpuscular Hemoglobin 28.6 pg (25.9-34.0); Mean Corpuscular Volume 86.6 fL (80.0-94.0); Mean Platelet Volume 13.3 fL (9.5-13.5); Monocytes Absolute Auto 1.1 10^3/uL (0.3-0.8); Monocytes Percent Auto 7.9 % (1.7-12.0); Neutrophils Absolute Auto 9.2 10^3/uL (1.4-6.5); Neutrophils Percent Auto 65.8 % (43.0-75.0); Platelet Count 169 10^3/uL (150-450); Red Blood Count 6.11 10^6/uL (4.70-6.10); Red Cell Distribution Width 13.7 % (11.0-15.0); White Blood Count 14.1 10^3/uL (4.0-11.0)
[2024-09-28 08:07] LABS: Anion Gap 7.5; BUN Creatinine Ratio 10.8; Calcium 9.2 mg/dL (8.5-10.1); Carbon Dioxide 30.8 mmol/L (21.0-32.0); Chloride 104 mmol/L (98-107); Estimated GFR (African America >60 (>=60 mL/min/1.73m^2); Estimated GFR (Non-African Ame >60 (>=60 mL/min/1.73m^2); Glucose 145 mg/dL (74-106); Potassium 3.3 mmol/L (3.5-5.1); Sodium 139 mmol/L (136-145); Troponin I High Sensitivity 25.9 pg/mL (4.0-76.1)
--- OUTSIDE RECORDS SUMMARY | 2024-09-28 09:21 | XMS_ITS | CCD ---
Author Organization [employer] [facility] Results Test Name Value Interpretation Reference [...] its performance Rebecca Disclaimer characteristic determined by [facility] and Rebecca Disclaimer validated at [facility]. This Rebecca Disclaimer test has not [...] is terminated or revoked sooner. PERFORMED BY: [facility] [address] [place] [address] PATHOLOGIST PMO MANAGER PATTI DE M.D. Normal [facility] Comment on above: Performed By: #### S NATALYA COVID-19 REBECCA #### [facility] [address] [id number] [facility] Rebecca Ag Negativeon 01-26-20 21 Rebecca Ag Negative Negative Normal Negative [facility] Comment on above: Result Comment: This is a duplicate Rebecca SARS Antigen (SYED) result to be used for statistical tracking purpose only. PERFORMED BY: [place] [address] PATHOLOGIST PMO MANAGER PATTI DE M.D. Performed By: #### S OFIANEG, COVID-19 REBECCA #### [address] Complete Blood Count Auto Di ffon 10-26-2020 Basophils (Bld) [#/Vol] 0.1 10*3/uL Normal 0.0-0.[address] [facility] Comment on above: Order Comment: Reaso n for Exam Essential hypertension Result Comment: PERF ORMED BY: [place] [address] PATHOLOGIST PMO MANAGER PATTI DE M.D. Performed By: #### V [id number], CMP, CBC, LIPID #### [address] Basophils/100 WBC (Bld) 1.0 % Normal . [facility] Comment on above: Order Comment: Reaso n for Exam Essential hypertension Performed By: #### V [id number], CMP, CBC, LIPID #### [address] Eosinophils (Bld) [#/Vol] 0.4 10*3/uL Normal 0.0-0.[address] [facility] Comment on above: Order Comment: Reaso n for Exam Essential hypertension Performed By: #### V [id number], CMP, CBC, LIPID #### [address] Eosinophils/100 WBC (Bld) 4.7 % Normal . [facility] Comment on above: Order Comment: Reaso n for Exam Essential hypertension Performed By: #### V [id number], CMP, CBC, LIPID #### [address] Erythrocyte distribution width (RBC) [Ratio] 14.0 % Normal 12.0-14.[address] [facility] Comment on above: Order Comment: Reaso n for Exam Essential hypertension Performed By: #### V [id number], CMP, CBC, LIPID #### [address] Hematocrit (Bld) [Volume fraction] 47.4 % Normal 38.8-50.[address] [facility] Comment on above: Order Comment: Reaso n for Exam Essential hypertension Performed By: #### V [id number], CMP, CBC, LIPID #### [address] Hemoglobin (Bld) [Mass/Vol] 16.3 g/dL Normal 13.0-17.[address] [facility] Comment on above: Order Comment: Reaso n for Exam Essential hypertension Performed By: #### V [id number], CMP, CBC, LIPID #### [address] Lymphocytes (Bld) [#/Vol] 2.3 10*3/uL Normal 1.00-4.[address] [facility] Comment on above: Order Comment: Reaso n for Exam Essential hypertension Performed By: #### V [id number], CMP, CBC, LIPID #### [address] Lymphocytes/100 WBC (Bld) 26.7 % Normal . [facility] Comment on above: Order Comment: Reaso n for Exam Essential hypertension Performed By: #### V [id number], CMP, CBC, LIPID #### [address] MCH (RBC) [Entitic mass] 30.8 pg Normal 27.5-35.[address] [facility] Comment on above: Order Comment: Reaso n for Exam Essential hypertension Performed By: #### V [id number], CMP, CBC, LIPID #### [address] MCV (RBC) [Entitic vol] 89.7 fL Normal 83.5-[address] [facility] Comment on above: Order Comment: Reaso n for Exam Essential hypertension Performed By: #### V [id number], CMP, CBC, LIPID #### [facility] [address] Mean Corpuscular HGB Conc 34.4 g/dL Normal 32.5-35.[address] [facility] Comment on above: Order Comment: Reaso n for Exam Essential hypertension Performed By: #### V [id number], CMP, CBC, LIPID #### [facility] [address] Monocytes (Bld) [#/Vol] 0.9 10*3/uL High 0.0-0.[address] [facility] Comment on above: Order Comment: Reaso n for Exam Essential hypertension Performed By: #### V [id number], CMP, CBC, LIPID #### [facility] [address] [place] [address] Monocytes/100 WBC (Bld) 10.4 % Normal . [facility] Comment on above: Order Comment: Reaso n for Exam Essential hypertension Performed By: #### V [id number], CMP, CBC, LIPID #### [address] Neutrophils (Bld) [#/Vol] 5.0 10*3/uL Normal 1.8-7.[address] [facility] Comment on above: Order Comment: Reaso n for Exam Essential hypertension Performed By: #### V [id number], CMP, CBC, LIPID #### [address] Neutrophils/100 WBC (Bld) 57.2 % Normal . [facility] Comment on above: Order Comment: Reaso n for Exam Essential hypertension Performed By: #### V [id number], CMP, CBC, LIPID #### [facility] [address] [place] [address] [place] Nucleated RBC/100 WBC (Bld) [Ratio] 0.1 % Normal 0-0.[address] [facility] Comment on above: Order Comment: Reaso n for Exam Essential hypertension Performed By: #### V [id number], CMP, CBC, LIPID #### [place] [address] [place] Platelet mean volume (Bld) [Entitic vol] 11.0 fL High 6.6-10.[address] [facility] Comment on above: Order Comment: Reaso n for Exam Essential hypertension Performed By: #### V [id number], CMP, CBC, LIPID #### [facility] [address] Platelets (Bld) [#/Vol] 159 10*3/uL Normal 150-[address] [facility] Comment on above: Order Comment: Reaso n for Exam Essential hypertension Performed By: #### V [id number], CMP, CBC, LIPID #### [facility] [address] RBC (Bld) [#/Vol] 5.29 10*6/uL Normal 3.90-5.60 [facility] Comment on above: Order Comment: Reaso n for Exam Essential hypertension Performed By: #### V [id number], CMP, CBC, LIPID #### [facility] [address] [place] [address] WBC (Bld) [#/Vol] 8.8 10*3/uL Normal 4.5-11.0 [facility] Comment on above: Order Comment: Reaso n for Exam Essential hypertension Performed By: #### V [id number], CMP, CBC, LIPID #### [facility] [address] [place] [address] Comprehensive Metabolic Pane shirley 10-26-2020 Albumin [Mass/Vol] 3.9 g/dL Normal 3.2-5.5 [facility] Comment on above: Order Comment: PT FA STED 11 HRS Reason for Exam Essential hypertension Reason for Exam Essential hypertension;Vitamin D deficiency Performed By: #### V [id number], CMP, CBC, LIPID #### [facility] [address] Albumin/Globulin [Mass ratio] 1.6 {ratio} Normal [facility] Comment on above: Order Comment: PT FA STED 11 HRS Reason for Exam Essential hypertension Reason for Exam Essential hypertension;Vitamin D deficiency Performed By: #### V [id number], CMP, CBC, LIPID #### [facility] [address] [place] [address] [place] ALP [Catalytic activity/Vol] 75 U/L Normal 32-[address] [facility] Comment on above: Order Comment: PT FA STED 11 HRS Reason for Exam Essential hypertension Reason for Exam Essential hypertension;Vitamin D deficiency Performed By: #### V [id number], CMP, CBC, LIPID #### [facility] [address] [place] [address] [place] ALT [Catalytic activity/Vol] 40 U/L Normal 10-[address] [facility] Comment on above: Order Comment: PT FA STED 11 HRS Reason for Exam Essential hypertension Reason for Exam Essential hypertension;Vitamin D deficiency Performed By: #### V [id number], CMP, CBC, LIPID #### [facility] [address] [place] [address] [facility] AST [Catalytic activity/Vol] 23 U/L Normal 10-[address] [facility] Comment on above: Order Comment: PT FA STED 11 HRS Reason for Exam Essential hypertension Reason for Exam Essential hypertension;Vitamin D deficiency Performed By: #### V [id number], CMP, CBC, LIPID #### [facility] [address] [id number] [place] Bilirubin [Mass/Vol] 0.5 mg/dL Normal 0.3-1.2 [facility] Comment on above: Order Comment: PT FA STED 11 HRS Reason for Exam Essential hypertension Reason for Exam Essential hypertension;Vitamin D deficiency Performed By: #### V [id number], CMP, CBC, LIPID #### [facility] [address] [place] [address] [place] Calcium [Mass/Vol] 9.3 mg/dL Normal 8.2-10.2 [facility] Comment on above: Order Comment: PT FA STED 11 HRS Reason for Exam Essential hypertension Reason for Exam Essential hypertension;Vitamin D deficiency Performed By: #### V [id number], CMP, CBC, LIPID #### [facility] [address] [id number] [place] Chloride [Moles/Vol] 102 mmol/L Normal 95-114 [facility] Comment on above: Order Comment: PT FA STED 11 HRS Reason for Exam Essential hypertension Reason for Exam Essential hypertension;Vitamin D deficiency Performed By: #### V [id number], CMP, CBC, LIPID #### [facility] [address] [id number] [place] CO2 [Moles/Vol] 27.8 mmol/L Normal 22.0-30.0 [facility] Comment on above: Order Comment: PT FA STED 11 HRS Reason for Exam Essential hypertension Reason for Exam Essential hypertension;Vitamin D deficiency Performed By: #### V [id number], CMP, CBC, LIPID #### [facility] [address] Creatinine [Mass/Vol] 1.17 mg/dL Normal 0.64-1.[address] [facility] Comment on above: Order Comment: PT FA STED 11 HRS Reason for Exam Essential hypertension Reason for Exam Essential hypertension;Vitamin D deficiency Performed By: #### V [id number], CMP, CBC, LIPID #### [facility] [address] [place] [address] Estimated GFR ( Henny > 60 [facility] Comment on above: Order Comment: PT FA STED 11 HRS Reason for Exam Essential hypertension Reason for Exam Essential hypertension;Vitamin D deficiency Result Comment: GFR estimated reference range: According to KDOQI guidelines, <60 ml/min/1.73m2 is sufficient to diagnose a patient with chronic kidney disease. Performed By: #### V [id number], CMP, CBC, LIPID #### [facility] [address] [place] [address] Estimated GFR (Non- Am > 60 [facility] Comment on above: Order Comment: PT FA STED 11 HRS Reason for Exam Essential hypertension Reason for Exam Essential hypertension;Vitamin D deficiency Performed By: #### V [id number], CMP, CBC, LIPID #### [facility] [address] [place] [address] [place] Globulin (S) [Mass/Vol] 2.5 g/dL [facility] Comment on above: Order Comment: PT FA STED 11 HRS Reason for Exam Essential hypertension Reason for Exam Essential hypertension;Vitamin D deficiency Performed By: #### V [id number], CMP, CBC, LIPID #### [facility] [address] [id number] [place] Glucose [Mass/Vol] 114 mg/dL High 70-100 [facility] Comment on above: Order Comment: PT FA STED 11 HRS Reason for Exam Essential hypertension Reason for Exam Essential hypertension;Vitamin D deficiency Result Comment: [place] Glucose Reference Range is dependent on time and content of last meal. Glucose of more than 200 mg/dL in a nonstressed, ambulatory subject supports the diagnosis of Diabetes Mellitus. ADA recommended reference range Performed By: #### V [id number], CMP, CBC, LIPID #### [facility] [address] [id number] [facility] Potassium [Moles/Vol] 3.8 mmol/L Normal 3.5-5.[address] [facility] Comment on above: Order Comment: PT FA STED 11 HRS Reason for Exam Essential hypertension Reason for Exam Essential hypertension;Vitamin D deficiency Performed By: #### V [id number], CMP, CBC, LIPID #### [facility] [address] [place] [address] [facility] Protein [Mass/Vol] 6.4 g/dL Normal 6.1-7.9 [facility] Comment on above: Order Comment: PT FA STED 11 HRS Reason for Exam Essential hypertension Reason for Exam Essential hypertension;Vitamin D deficiency Performed By: #### V [id number], CMP, CBC, LIPID #### [facility] [address] [place] [address] [place] Sodium [Moles/Vol] 137 mmol/L Normal 136-146 [facility] Comment on above: Order Comment: PT FA STED 11 HRS Reason for Exam Essential hypertension Reason for Exam Essential hypertension;Vitamin D deficiency Performed By: #### V [id number], CMP, CBC, LIPID #### [facility] [address] [place] [address] [place] Urea nitrogen [Mass/Vol] 15 mg/dL Normal 9-[address] [facility] Comment on above: Order Comment: PT FA STED 11 HRS Reason for Exam Essential hypertension Reason for Exam Essential hypertension;Vitamin D deficiency Performed By: #### V [id number], CMP, CBC, LIPID #### [facility] [address] [place] [address] [facility] Lipid Panelon 10-26-2020 Cholesterol [Mass/Vol] 205 mg/dL High 140-[address] [facility] Comment on above: Order Comment: PT FA STED 11 HRS Reason for Exam Essential hypertension Reason for Exam Essential hypertension;Vitamin D deficiency Result Comment: Chol less than 200 mg/dl low risk Chol 201-239 mg/dl borderline risk Chol 240 mg/dl and greater high risk Performed By: #### V [id number], CMP, CBC, LIPID #### [facility] [address] [id number] [place] Cholesterol in HDL [Mass/Vol] 24 mg/dL Low 29-[address] [facility] Comment on above: Order Comment: PT FA STED 11 HRS Reason for Exam Essential hypertension Reason for Exam Essential hypertension;Vitamin D deficiency Result Comment: HDL CHOL ATP-III CLASSIFICATION Cardiovascular Risk HDL > or equal to 60 mg/dL LOW HDL < 40 mg/dL HIGH Performed By: #### V [id number], CMP, CBC, LIPID #### [facility] [address] Cholesterol.total/Ch olesterol in HDL [Mass ratio] 8.5 {ratio} Normal <5.[address] [facility] Comment on above: Order Comment: PT FA STED 11 HRS Reason for Exam Essential hypertension Reason for Exam Essential hypertension;Vitamin D deficiency Performed By: #### V [id number], CMP, CBC, LIPID #### [facility] [address] [place] [address] [place] LDL Cholesterol,Calculat ed 131 mg/dL High 0-[address] [facility] Comment on above: Order Comment: PT FA STED 11 HRS Reason for Exam Essential hypertension Reason for Exam Essential hypertension;Vitamin D deficiency Result Comment: LDL ATP III CLASSIFICATION LDL less than 100 mg/dL Optimal LDL 100-129 mg/dL Near or above optimal LDL 130-159 mg/dL Borderline high LDL 160-189 mg/dL High LDL greater than 189 mg/dL Very high Performed By: #### V [id number], CMP, CBC, LIPID #### [facility] [address] [place] [address] [place] Triglyceride w/Reflex 248 mg/dL High 35-[address] [facility] Comment on above: Order Comment: PT [...] (CDC) test method. Performed By: #### V [id number], CMP, CBC, LIPID #### [facility] [address] VLDL CHOLESTEROL 49 mg/dL Normal [facility] Comment on above: Order Comment: PT FA STED 11 HRS Reason for Exam Essential hypertension Reason for Exam Essential hypertension;Vitamin D deficiency Performed By: #### V [id number], CMP, CBC, LIPID #### [facility] [address] [id number] [facility] Vitamin D 25 Hydroxy Totalon 10-26-2020 Vitamin D 25 Hydroxy Total 50.8 ng/mL Normal 30-[address] [facility] Comment on above: Order Comment: PT [...] practice guideline. JCEM. 2010; 96(7):1911-30. PERFORMED BY: [place] [address] PATHOLOGIST PMO MANAGER PATTI DE M.D. Performed By: #### V [id number], CMP, CBC, LIPID #### [facility] [address] Summary Purpose Family History No Family History Records Found Advance Directives No Advanced Directives Records Found Additional Source Comments (unrecognized sect ion and content) No Status Records Found INFORMATION SOURCE (unrecogn ized section and content) DATE CREATED AUTHOR 07/19/2021 [facility] FOR RECORDS PERTAINING TO PATIENTS WHO ARE [...] BE BASED ON THE PRIMARY CLINICAL RECORDS. [facility]. provides no warranty or guarantee of the accuracy or completeness of information in this document.
--- NOTE | 2024-09-28 10:27 | P.HP_ITS ---
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 Chest pain with shortness of breath, no diaphoresis no pain and radiating to the left arm I saw patient up in the medical surgical floor, resting in bed comfortably, states pain is much better, Opioid HPI Opioid Management Most Recent Pain and Opioid Data: Last Pain Scale 4 09/28/24 06:49 09/28/24 Last Pain Assessment 09/28/24 10:05 Last ORT Total Score 0 09/28/24 09:29 09/28/24 Last ORT Risk Category Low Risk 09/28/24 09:29 09/28/24 Review of Systems ROS Status of ROS 10 or more systems reviewed and unremark able except as noted in history and below PFSH PFSH Surgical History (Updated 09/28/24 @ 09:25 by Kenisha Funez) Hx of tonsillectomy ?Z90.89 - Acquired absence of other organs (ICD-10) Family History (Updated 09/28/24 @ 09:27 by Kenisha Funez) Father Family history of CHF (congestive heart failure) Family history of COPD (chronic obstructive pulmonary disease) Mother Family history of diabetes mellitus Family history of myocardial infarction Brother Family history of CHF (congestive heart failure) Social History (Updated 09/28/24 @ 09:28 by Kenisha Funez) Within the past year, how often did you have a drink containing alcohol: never Within the past year, how often did you have six or more drinks on one occasion: never Score interpretation: A score less than 4 is consistent with normal alcohol consumption. Smoking status: Current every day smoker Non-prescribed substance use: denies use Previous occupational history: [employer] Highest level of school completed/degree received: 11th grade Are you now , , , , never or living with a partner: In a typical week, how many times do you talk on the telephone with family, friends, or neighbors: 3 or more times per week How often do you get together with friends or relatives: 3 or more times per week How often do you attend adventist or worship services: never Do you belong to any clubs or organizations such as adventist groups unions, fraternal or athletic groups, or school groups: no Total score: 2 Score interpretation: A score of greater than or equal to 2 indicates the lowest level of social isolation. Little interest or pleasure in doing things: not at all Feeling down, depressed, or hopeless: not at all Feel stressed/tense/nervous/anxious/difficulty sleeping: not at all Do you think of yourself as: straight/heterosexual Gender Identity: female Meds Home Medications and Allergies Home Medications ?Medication ?Instructions ?Recorded ?Confirmed ?Type No Known Home Medications 06/24/24 09/28/24 History Allergies Allergy/AdvReac Type Severity Reaction Status Date / Time Penicillins Allergy Severe Hives Verified 09/28/24 06:40 Exam Constitutional Vital Signs, click to edit/add: Last Vital Signs Temp 97.9 F 09/28/24 09:29 Pulse 87 09/28/24 09:29 Resp 16 09/28/24 09:29 BP 204/126 H 09/28/24 09:29 Pulse Ox 94 L 09/28/24 09:29 O2 Del Method Room Air 09/28/24 09:29 Documenting provider has reviewed patient's vital signs: yes Common normals: no apparent distress Chest Common normals: inspection of chest normal and palpation of chest normal Respiratory Common normals: normal respiratory effort and no retractions Auscultation: rales Cardio Common normals: regular rate, regular rhythm and no murmurs GI Common normals: negative for Normal to inspection, nondistended, normoactive bowel sounds present (Obesity) Extremity Common normals: abnormal to inspection (Trace edema) Results Labs Labs: Short CBC 09/28/24 Range/Units 06:46 WBC 14.1 H (4.0-11.0) 10^3/uL Hgb 17.5 (14.0-18.0) g/dL Hct 52.9 (42.0-54.0) % Plt Count 169 (150-450) 10^3/uL BMP 09/28/24 06:46 Sodium 139 Potassium 3.3 L Chloride 104 Carbon Dioxide 30.8 BUN 13.0 Creatinine 1.20 Glucose 145 H Calcium 9.2 Urine 04/12/25 Range/Units 07:13 Urine Color Lt. yellow (YELLOW) Urine Clarity Clear (CLEAR) Urine pH 7.0 (5.0-9.0) Ur Specific Paradox 1.020 (1.005-1.025) Urine Protein 100 A (NEG/TRACE) mg/dL Urine Glucose (UA) Negative (NEGATIVE) mg/dL Assessment and Plan Assessment and Plan (1) Congestive heart failure: (2) Low back pain: (3) Hypertensive urgency: (4) Morbid obesity: (5) Hypokalemia: (6) Cardiomegaly: (7) Pulmonary edema: (8) Leukocytosis: Plan Admission findings: Hypertension, uncontrolled, respiratory distress, sinus tachycardia, elevated BNP, normal troponin, resulting in hypertensive urgency and acute combined congestive heart failure Acute combined congestive heart failure-add nitrates, aspirin, beta-blockers, Lasix twice daily IV Hypertensive urgency resulting in acute combined congestive heart failure- treatment as outlined above should improve his blood pressure, will use as needed hydralazine Hypokalemia-supplement Leukocytosis-no specific etiology, cough minimal nonproductive, may be viral, check viral studies Cardiomegaly on chest x-ray-check echocardiogram Morbid obesity-diet management Admission status: Patient with hypertensive urgency and acute combined congestive heart failure, medically necessary treatment will more than likely span 2 midnights, inpatient status, this is new onset and workup will likely span the 2 midnights
[2024-09-28] MEDS: POTASSIUM CHLORIDE 10 MEQ ER TABLET 20 MEQ PO (10:52)
[2024-09-28] MEDS: METOPROLOL TARTRATE 25 MG TABLET PO (10:52)
[2024-09-28] MEDS: ASPIRIN 81 MG TABLET.DR PO (10:52)
[2024-09-28] MEDS: ISOSORBIDE MONONITRATE 30 MG TAB.ER.24H PO (10:52)
[2024-09-28 11:18] LABS: Influenza Virus A Antigen Negative; Influenza Virus B Antigen Negative; Internal Control Within Normal Limits; SARS-CoV-2 Ag NEGATIVE (NEGATIVE)
[2024-09-28 11:35] LABS: Alanine Aminotransferase 35 U/L (16-63); Albumin Globulin Ratio 1.2; Albumin Level 3.7 g/dL (3.4-5.0); Alkaline Phosphatase 102 U/L (46-116); Aspartate Amino Transferase 18 U/L (15-37); Bilirubin Direct 0.2 mg/dL (0.0-0.2); Bilirubin Total 0.7 mg/dL (0.2-1.0); Globulin 3.2 g/dL; Magnesium 1.8 mg/dL (1.8-2.4); Total Protein 6.9 g/dL (6.4-8.2)
[2024-09-28 12:10] LABS: Troponin I High Sensitivity 27.2 pg/mL (4.0-76.1)
[2024-09-29] VITALS (13 sets, daily range): BP systolic 142–176; BP diastolic 74–111; PULSE 60–100; TEMP 36.6–36.9; O2SAT 91–97
[2024-09-29] MEDS: ACETAMINOPHEN 500 MG TABLET 1000 MG PO ×2 (00:48→13:10)
[2024-09-29] MEDS: FUROSEMIDE 40 MG/4 ML VIAL IVP (00:49)
[2024-09-29] MEDS: POTASSIUM CHLORIDE 10 MEQ ER TABLET 20 MEQ PO ×4 (00:49→21:24)
[2024-09-29] MEDS: METOPROLOL TARTRATE 25 MG TABLET PO (00:49)
[2024-09-29 06:22] LABS: Basophils Absolute Auto 0.1 10^3/uL (0.0-0.1); Basophils Percent Auto 0.5 % (0.2-2.0); Eosinophils Absolute Auto 0.4 10^3/uL (0.0-0.7); Hematocrit 47.2 % (42.0-54.0); Hemoglobin 15.6 g/dL (14.0-18.0); Immature Granulocytes Abs Auto 0.05 10^3/uL (0.00-0.03); Immature Granulocytes Pct Auto 0.4 % (0.0-0.5); Lymphocytes Absolute Auto 3.1 10^3/uL (1.2-3.8); Mean Corpuscular HGB Conc 33.1 g/dL (29.9-35.2); Mean Corpuscular Hemoglobin 28.6 pg (25.9-34.0); Mean Corpuscular Volume 86.6 fL (80.0-94.0); Mean Platelet Volume 12.7 fL (9.5-13.5); Monocytes Absolute Auto 1.1 10^3/uL (0.3-0.8); Monocytes Percent Auto 7.9 % (1.7-12.0); Neutrophils Absolute Auto 8.8 10^3/uL (1.4-6.5); Neutrophils Percent Auto 65.2 % (43.0-75.0); Platelet Count 135 10^3/uL (150-450); Red Blood Count 5.45 10^6/uL (4.70-6.10); Red Cell Distribution Width 13.7 % (11.0-15.0); White Blood Count 13.4 10^3/uL (4.0-11.0)
[2024-09-29 06:40] LABS: Anion Gap 11.5; BUN Creatinine Ratio 14.2; Calcium 8.7 mg/dL (8.5-10.1); Carbon Dioxide 29.9 mmol/L (21.0-32.0); Chloride 105 mmol/L (98-107); Estimated GFR (African America >60 (>=60 mL/min/1.73m^2); Estimated GFR (Non-African Ame >60 (>=60 mL/min/1.73m^2); Glucose 121 mg/dL (74-106); Potassium 3.4 mmol/L (3.5-5.1); Sodium 143 mmol/L (136-145); Troponin I High Sensitivity 21.8 pg/mL (4.0-76.1)
--- NOTE | 2024-09-29 09:11 | P.PN_ITS ---
Progress Note: Subjective Subjective Interval history: Patient is states his breathing does feel better, chest pain resolved, still significant hypoxia overnight with O2 sat of 81%, still in the upper 80s after deep breathing so placed on supplemental oxygen with improvement Exam Constitutional Vital Signs, click to edit/add: Last Vital Signs Temp 97.8 F 09/29/24 06:00 Pulse 62 09/29/24 07:53 Resp 16 09/29/24 06:00 BP 147/94 H 09/29/24 06:00 Pulse Ox 97 09/29/24 07:53 O2 Del Method Room Air, Nasal Cannula 09/29/24 06:00 O2 Flow Rate 2 09/29/24 06:00 Documenting provider has reviewed patient's vital signs: yes Common normals: no apparent distress Chest Common normals: inspection of chest normal and palpation of chest normal Respiratory Common normals: normal respiratory effort and no retractions Auscultation: rales (Persisting, not significantly improved) Cardio Common normals: regular rate, regular rhythm, S1 normal heart sound, S2 normal heart sound and no murmurs GI Common normals: negative for Normal to inspection, nondistended, normoactive bowel sounds present (Obesity) Extremity Common normals: abnormal to inspection (Trace edema -unchanged) Progress Note: Objective Labs Labs: Short CBC 09/29/24 Range/Units 05:47 WBC 13.4 H (4.0-11.0) 10^3/uL Hgb 15.6 (14.0-18.0) g/dL Hct 47.2 (42.0-54.0) % Plt Count 135 L (150-450) 10^3/uL BMP 09/29/24 05:47 Sodium 143 Potassium 3.4 L Chloride 105 Carbon Dioxide 29.9 BUN 16.0 Creatinine 1.13 Glucose 121 H Calcium 8.7 Liver Function 09/28/24 Range/Units 10:59 Total Bilirubin 0.7 (0.2-1.0) mg/dL Direct Bilirubin 0.2 (0.0-0.2) mg/dL AST 18 (15-37) U/L ALT 35 (16-63) U/L Alkaline Phosphatase 102 (46-116) U/L Albumin 3.7 (3.4-5.0) g/dL Progress Note: A&P Assessment and Plan (1) Congestive heart failure: (2) Low back pain: (3) Hypertensive urgency: (4) Morbid obesity: (5) Hypokalemia: (6) Cardiomegaly: (7) Pulmonary edema: (8) Leukocytosis: Plan Admission findings: Hypertension, uncontrolled, respiratory distress, sinus tachycardia, elevated BNP, normal troponin, resulting in hypertensive urgency and acute combined congestive heart failure Acute combined congestive heart failure-twice daily Lasix with only 2 L out, still with peripheral edema and rales on lung exam and now with hypoxia, will try patient on Bumex drip today, echo in a.m. Hypertensive urgency resulting in acute combined congestive heart failure-blood pressure still slightly elevated at times but overall improved will see if improves with improved diuresis Keuhcndkofh-gjjjanuwqv-dleduijl supplementation today Leukocytosis with mild thrombocytopenia-no specific etiology, cough minimal nonproductive, may be viral, check viral studies Cardiomegaly on chest x-ray-check echocardiogram Morbid obesity-diet management Admission status: Patient with hypertensive urgency and acute combined congestive heart failure, medically necessary treatment will more than likely span 2 midnights, inpatient status, condition deteriorated overnight so maintain inpatient status, ?
[2024-09-29] MEDS: METOPROLOL TARTRATE 50 MG TABLET PO ×2 (09:25→21:24)
[2024-09-29] MEDS: ISOSORBIDE MONONITRATE 30 MG TAB.ER.24H PO (09:25)
[2024-09-29] MEDS: ASPIRIN 81 MG TABLET.DR PO (09:25)
[2024-09-29] MEDS: BUMETANIDE 10 MG in 0.9 % SODIUM CHLORIDE 160 ML 20 MG IV (10:23)
[2024-09-30] VITALS (10 sets, daily range): BP systolic 151–175; BP diastolic 79–101; PULSE 63–72; TEMP 36.4–36.6; O2SAT 93–96
[2024-09-30] MEDS: POTASSIUM CHLORIDE 10 MEQ ER TABLET 20 MEQ PO ×3 (05:26→21:10)
[2024-09-30 05:35] LABS: Basophils Absolute Auto 0.1 10^3/uL (0.0-0.1); Basophils Percent Auto 0.6 % (0.2-2.0); Eosinophils Absolute Auto 0.4 10^3/uL (0.0-0.7); Eosinophils Percent Auto 3.2 % (0.9-7.0); Hematocrit 48.8 % (42.0-54.0); Hemoglobin 16.4 g/dL (14.0-18.0); Immature Granulocytes Abs Auto 0.04 10^3/uL (0.00-0.03); Immature Granulocytes Pct Auto 0.3 % (0.0-0.5); Lymphocytes Absolute Auto 3.5 10^3/uL (1.2-3.8); Lymphocytes Percent Auto 25.5 % (20.5-60.0); Mean Corpuscular HGB Conc 33.6 g/dL (29.9-35.2); Mean Corpuscular Hemoglobin 28.4 pg (25.9-34.0); Mean Corpuscular Volume 84.4 fL (80.0-94.0); Monocytes Percent Auto 7.6 % (1.7-12.0); Neutrophils Absolute Auto 8.5 10^3/uL (1.4-6.5); Neutrophils Percent Auto 62.8 % (43.0-75.0); Platelet Count 154 10^3/uL (150-450); Red Blood Count 5.78 10^6/uL (4.70-6.10); Red Cell Distribution Width 13.5 % (11.0-15.0); White Blood Count 13.5 10^3/uL (4.0-11.0)
[2024-09-30 05:58] LABS: Anion Gap 10.1; BUN Creatinine Ratio 15.9; Chloride 101 mmol/L (98-107); Estimated GFR (African America >60 (>=60 mL/min/1.73m^2); Estimated GFR (Non-African Ame >60 (>=60 mL/min/1.73m^2); Glucose 133 mg/dL (74-106); Potassium 3.1 mmol/L (3.5-5.1); Sodium 141 mmol/L (136-145)
--- NOTE | 2024-09-30 06:00 | CA_ITS ---
Patient Name: MAGALY CARSON MR#: [id number] : 1975 Exam Date: 09/30/2024 Ordering Doctor: DR Claude Hernández . ECHOCARDIOGRAM REPORT PROCEDURE: CA ECHO DOPPLER COMPLETE INDICATIONS: Dyspnea, congestive heart failure, hypertension, smoker COMPARISON: None. DESCRIPTION: COMPLETE ECHOCARDIOGRAM Real-time transthoracic echocardiography with 2D, M-mode, spectral and color flow Doppler performed. QUALITY: Technical quality was good. LEFT VENTRICLE: Normal chamber size. Moderate concentric left ventricular hypertrophy. LV EF: Global left ventricular systolic function is severely reduced; estimated ejection fraction is 15 to 20%. Calculated left ventricular ejection fraction is 20%. Diffuse global hypokinesis. DIASTOLIC: Grade III diastolic dysfunction. ATRIAL SEPTUM: Visually appears intact. LEFT ATRIUM: Mild dilatation. RIGHT ATRIUM: Mild dilatation. RIGHT VENTRICLE: Normal chamber size. Decreased right ventricular systolic function. TRICUSPID VALVE: Normal mobility and thickness. No stenosis with no regurgitation. Unable to assess right-sided pressures due to lack of measurable tricuspid regurgitation. MITRAL VALVE: Normal mobility and thickness. No evidence of mitral valve stenosis. There is no mitral annular calcification. Trivial mitral regurgitation. AORTIC VALVE: Normal trileaflet appearance. No visible sclerosis. Normal leaflet mobility. No evidence of aortic valve stenosis. Trivial aortic regurgitation. AORTIC ROOT: Normal diameter and appearance. Ascending aorta is normal in size. PULMONIC VALVE: Normal thickness and mobility. No stenosis. No regurgitation. PERICARDIUM: No evidence of pericardial effusion. IVC: IVC is dilated (2.7 cm), does not collapse. CONCLUSION: 1. Global left ventricular systolic function is severely reduced; visually estimated ejection fraction is 15 to 20% 2. The right ventricle is normal in size with reduced systolic function 3. Grade 3, severe diastolic dysfunction 4. Moderate left ventricular hypertrophy 5. Biatrial dilatation 6. No significant valvular abnormalities Adult Echocardiography Procedure Report Left Ventricle LVEDD (3.7 - 5.6 cm): 5.52 cm LVESD (2.2 - 4.0 cm): 4.85 cm LVIVS thickness (0.6 - 1.2 cm): 1.46 cm LVPW thickness (0.5 - 1.0 cm): 1.59 cm e': 0.08 m/s E - e': 11.37 LVOT Max Gradient: 1.82 mm[Hg] LVOT Area (cm2): 0.67 m/s Peak Velocity (LVOT): 0.67 m/s Mean Velocity (LVOT): 0.48 m/s LVOT Diameter 2.70 cm Left Atrium LA Volume Index (2D A2C): 36.07 ml/m2 Left Atrium Systolic Dimension: 5.00 cm Mitral Valve MV E to A Ratio: 3.01 Mitral Valve A-Wave Peak Velocity: 0.31 m/s Mitral Valve E-Wave Peak Velocity: 0.93 m/s Right Ventricle Aorta AO Root Diam: 3.53 cm Ascending Ao Diam: 3.20 cm Aortic Valve AoV Area (Peak Vlad): 3.25 cm2, 3.25 cm2 AoV Area (VTI): 2.95 cm2, 2.95 cm2 Peak Velocity(Antegrade Flow): 1.18 m/s Peak Gradient(Antegrade Flow): 5.61 mm[Hg] Mean Velocity(Antegrade Flow): 0.84 m/s Mean Gradient(Antegrade Flow): 3.26 mm[Hg] Velocity Time Integral: 23.14 cm Tricuspid Valve Pulmonic Valve Mean Gradient: 1.04 mm[Hg] Mean Velocity: 0.48 m/s Peak Velocity: 0.72 m/s, 0.85 m/s Peak Gradient: 2.87 mm[Hg], 2.06 mm[Hg] Right Atrium Right Atrium Systolic Pressure: 60.17 ml, 60.17 ml Dictated by: Florecita Ashraf M.D. on 09/30/2024 at 14:31 Approved by: Florecita Ashraf M.D. on 09/30/2024 at 14:35
--- NOTE | 2024-09-30 08:05 | P.DS_ITS ---
DS: Providers Provider Date of admission: 09/28/24 09:15 Primary care physician: Non-Staff Physician, Consults: 09/28/24 10:20 Consult to Pharmacy Routine Consulting Provider: Reason for consultation: Please [place] me when Med Rec is Updated Has provider been notified: No DS: Diagnosis Discharge Diagnosis (1) Congestive heart failure: (2) Low back pain: (3) Hypertensive urgency: (4) Morbid obesity: (5) Hypokalemia: (6) Cardiomegaly: (7) Pulmonary edema: (8) Leukocytosis: Plan Admission findings: Hypertension, uncontrolled, respiratory distress, sinus tachycardia, elevated BNP, normal troponin, resulting in hypertensive urgency and acute combined congestive heart failure Acute combined congestive heart failure-twice daily Lasix with only 2 L out, still with peripheral edema and rales on lung exam and now with hypoxia, will try patient on Bumex drip today, echo in a.m. Hypertensive urgency resulting in acute combined congestive heart failure-blood pressure still slightly elevated at times but overall improved will see if improves with improved diuresis Llmxmbwtfnr-ucgicmlvuk-itgunbqs supplementation today Leukocytosis with mild thrombocytopenia-no specific etiology, cough minimal nonproductive, may be viral, check viral studies Cardiomegaly on chest x-ray-check echocardiogram Morbid obesity-diet management Admission status: Patient with hypertensive urgency and acute combined congestive heart failure, medically necessary treatment will more than likely span 2 midnights, inpatient status, condition deteriorated overnight so maintain inpatient status, DS: Summary Hospital Course Hospital Course: Patient presented emergency room with increasing shortness of breath, found to have acute combined congestive heart failure secondary to hypertensive urgency, blood pressure improved, diuresed excellent with a net of 4.7 L over the 3-day hospital stay, echocardiogram is pending, assuming echocardiogram shows an ejection fraction of 50% or greater he can be discharged to home in improving condition. Medication status. Follow-up with me in the office as a new patient. Time Spent with Patient Time attestation: Total time spent providing and/or coordinating discharge services: Exam Constitutional Vital Signs, click to edit/add: Last Vital Signs Temp 97.5 F L 09/30/24 07:24 Pulse 66 09/30/24 07:24 Resp 18 09/30/24 07:24 BP 170/87 H 09/30/24 07:24 Pulse Ox 95 09/30/24 07:24 O2 Del Method Room Air 09/30/24 07:24 O2 Flow Rate 2 09/29/24 09:05 Documenting provider has reviewed patient's vital signs: yes Common normals: no apparent distress Chest Common normals: inspection of chest normal and palpation of chest normal Respiratory Common normals: normal respiratory effort and no retractions Auscultation: no rales (Rales have resolved) Cardio Common normals: regular rate, regular rhythm, S1 normal heart sound, S2 normal heart sound and no murmurs GI Common normals: negative for Normal to inspection, nondistended, normoactive bowel sounds present (Obesity) Extremity Common normals: normal to inspection (Edema has resolved) DS: Data Data Completed and Pending Labs on day of discharge: Labs from last 24 hours 09/30/24 05:25 WBC 13.5 H RBC 5.78 Hgb 16.4 Hct 48.8 MCV 84.4 MCH 28.4 MCHC 33.6 RDW 13.5 Plt Count 154 MPV 13.0 Neut % (Auto) 62.8 Lymph % (Auto) 25.5 [place] % (Auto) 7.6 Eos % (Auto) 3.2 Baso % (Auto) 0.6 Neut # (Auto) 8.5 H Lymph # (Auto) 3.5 [place] # (Auto) 1.0 H Eos # (Auto) 0.4 Baso # (Auto) 0.1 Abs Immat Gran (auto) 0.04 H Imm/Tot Granulo (auto) 0.3 Sodium 141 Potassium 3.1 L Chloride 101 Carbon Dioxide 33.0 H Anion Gap 10.1 BUN 18.0 Creatinine 1.13 Est GFR ( Amer) >60 Est GFR (Non-Af Amer) >60 BUN/Creatinine Ratio 15.9 Glucose 133 H Calcium 9.0 NT-Pro-B Natriuret Pep 448.0 Discharge Plan Discharge Disposition: Home, Self-Care Condition: Fair Discharge Medications: New isosorbide mononitrate 30 mg Tablet Extended Release 24 Hr 30 mg PO QD Qty: 30 11RF aspirin 81 mg Tablet,Delayed Release (Dr/Ec) 81 mg PO QD Qty: 30 11RF metoprolol tartrate 50 mg Tablet 50 mg PO BID Qty: 60 11RF No Action No Known Home Medications Print Language: Belizean Forms: Portal Instructions Follow Up Appointments: October 03 @ 11:30am with Dr. Hernández [address] [facility] [phone]
--- NOTE | 2024-09-30 08:07 | CM.NOTE ---
Rounds made with Dr. Hernández, discussed plan of care with pt. Pt will discharge this afternoon after cardiac echo. Pt will start on new medications, Dr. Hernández discussed medications and reasons for taking. Pt will f/u with Dr. Hernández this week.
[2024-09-30] MEDS: METOPROLOL TARTRATE 50 MG TABLET PO (09:03)
[2024-09-30] MEDS: ASPIRIN 81 MG TABLET.DR PO (09:03)
[2024-09-30] MEDS: ISOSORBIDE MONONITRATE 30 MG TAB.ER.24H PO (09:03)
[2024-09-30] MEDS: FUROSEMIDE 40 MG TABLET PO (13:15)
[2024-09-30] MEDS: LISINOPRIL 10 MG TABLET PO (13:15)
--- NOTE | 2024-09-30 17:56 | P.CACN_ITS ---
History of Present Illness History of Present Illness Consult date: 09/30/24 Requesting physician: Claude Hernández Chief complaint: sob, chest pain, CHF Narrative: Patient is a 49-year-old male without prior cardiac history. Patient does not take any medications. He reports that at times his blood pressure noted to be elevated however he never been on medications. He does not see a doctor often. He denies history of hyperlipidemia or diabetes mellitus. He is a smoker 1 pack/day for about 22 years. He denies alcohol or illicit drugs He presented with 3 days of worsening shortness of breath associated with chest discomfort. On arrival his blood pressure was significantly elevated 204/126. BNP was elevated on admission. He was started on diuretic IV as well as metoprolol, Imdur and lisinopril. He diuresed about 10 L and he lost about 10 pounds of weight. He feels now much better. He denies currently any chest pain or shortness of breath. 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 He reports occasional shortness of breath with exertion. Denies orthopnea or paroxysmal nocturnal dyspnea. Denies snoring. He denies dizziness or palpitations. He reports occasional legs edema. He denies being sleepy or tired during the daytime He is a smoker 1 pack/day for 22 years. He denies alcohol or illicit drugs Family history: His father has coronary artery disease. His mother had coronary artery disease and CABG and he she due to massive OK at age 46. His brother at age 42 due to congestive heart failure. EKG showed nonspecific ST abnormalities. His echo today showed left ventricle hypertrophy with severely reduced left ventricular systolic function globally with ejection fraction 15 to 20% associated with grade 3 diastolic dysfunction and no valvular abnormalities Review of Systems ROS Narrative All systems were reviewed and they were negative except for the positive findings noted above in the history PFSH PFSH Surgical History (Updated 09/28/24 @ 09:25 by Kenisha Funez) Hx of tonsillectomy ?Z90.89 - Acquired absence of other organs (ICD-10) Family History (Updated 09/28/24 @ 09:27 by Kenisha Funez) Father Family history of CHF (congestive heart failure) Family history of COPD (chronic obstructive pulmonary disease) Mother Family history of diabetes mellitus Family history of myocardial infarction Brother Family history of CHF (congestive heart failure) Social History (Updated 09/28/24 @ 09:28 by Kenisha Funez) Within the past year, how often did you have a drink containing alcohol: never Within the past year, how often did you have six or more drinks on one occasion: never Score interpretation: A score less than 4 is consistent with normal alcohol consumption. Smoking status: Current every day smoker Non-prescribed substance use: denies use Previous occupational history: [employer] Highest level of school completed/degree received: 11th grade Are you now , , , , never or living with a partner: In a typical week, how many times do you talk on the telephone with family, friends, or neighbors: 3 or more times per week How often do you get together with friends or relatives: 3 or more times per week How often do you attend yazidism or pentecostal services: never Do you belong to any clubs or organizations such as yazidism groups unions, [employer] or athletic groups, or school groups: no Total score: 2 Score interpretation: A score of greater than or equal to 2 indicates the lowest level of social isolation. Little interest or pleasure in doing things: not at all Feeling down, depressed, or hopeless: not at all Feel stressed/tense/nervous/anxious/difficulty sleeping: not at all Do you think of yourself as: straight/heterosexual Gender Identity: female Meds Home Medications and Allergies Home Medications ?Medication ?Instructions ?Recorded ?Confirmed ?Type No Known Home Medications 06/24/24 09/28/24 History aspirin 81 mg tablet,delayed 81 mg PO QD #30 tabs 09/30/24 Rx release isosorbide mononitrate 30 mg 30 mg PO QD #30 tabs 09/30/24 Rx tablet,extended release 24 hr metoprolol tartrate 50 mg tablet 50 mg PO BID #60 tabs 09/30/24 Rx Allergies Allergy/AdvReac Type Severity Reaction Status Date / Time Penicillins Allergy Severe Hives Verified 09/28/24 06:40 Exam Narrative Exam Narrative: He is alert, oriented, not in apparent distress HEENT within normal limits Neck supple, normal range of motion, no carotid bruit, jugular venous pressure is normal Lungs clear to auscultation without rales or rhonchi or wheezes Abdomen soft benign no organomegaly or tenderness, obese Cardiovascular system regular rate and rhythm, normal S1 and S2, no gallop or murmur Extremities no edema or cyanosis or clubbing Neurological examination grossly normal Constitutional Vital Signs, click to edit/add: Last Vital Signs Temp 97.5 F L 09/30/24 16:29 Pulse 65 09/30/24 16:29 Resp 18 09/30/24 16:29 BP 151/82 H 09/30/24 16:29 Pulse Ox 93 L 09/30/24 16:29 O2 Del Method Room Air 09/30/24 16:29 O2 Flow Rate 2 09/29/24 09:05 Results Labs and Meds Lab results: CBC 09/30/24 Range/Units 05:25 WBC 13.5 H (4.0-11.0) 10^3/uL RBC 5.78 (4.70-6.10) 10^6/uL Hgb 16.4 (14.0-18.0) g/dL Hct 48.8 (42.0-54.0) % Plt Count 154 (150-450) 10^3/uL Neut # (Auto) 8.5 H (1.4-6.5) 10^3/uL Lymph # (Auto) 3.5 (1.2-3.8) 10^3/uL Noble # (Auto) 1.0 H (0.3-0.8) 10^3/uL Eos # (Auto) 0.4 (0.0-0.7) 10^3/uL Baso # (Auto) 0.1 (0.0-0.1) 10^3/uL Comprehensive Metabolic Panel 09/30/24 Range/Units 05:25 Sodium 141 (136-145) mmol/L Potassium 3.1 L (3.5-5.1) mmol/L Chloride 101 (98-107) mmol/L Carbon Dioxide 33.0 H (21.0-32.0) mmol/L BUN 18.0 (7.0-18.0) mg/dL Creatinine 1.13 (0.70-1.30) mg/dL Glucose 133 H (74-106) mg/dL Calcium 9.0 (8.5-10.1) mg/dL Intake and Output 09/30/24 09/30/24 09/30/24 07:59 15:59 23:59 Intake Total 550 / 2600 980 / 1220 240 / 1220 Output Total 400 / 5675 1450 / 1450 Balance 150 / -3075 -470 / -230 240 / -230 Intake: Oral 550 / 2400 980 / 1220 240 / 1220 Output: Urine 400 / 5675 1450 / 1450 Other: Weight 139.2 kg EKG 09/28/2024 showed normal sinus rhythm, nonspecific T wave changes Echo 09/30/2024 Moderate concentric left ventricular hypertrophy Severely reduced left ventricle systolic function with global hypokinesis, ejection fraction 15 to 20% Grade 3 left ventricular diastolic dysfunction Normal right ventricle size with mildly reduced systolic function No valvular abnormality Assessment and Plan Assessment and Plan (1) Congestive heart failure: Assessment and Plan: Acute systolic with pulmonary edema, clinically better after diuresing (2) Pulmonary edema: (3) Hypertensive urgency: Assessment and Plan: Blood pressure better controlled on combination of metoprolol, Imdur, lisinopril, and Lasix (4) Cardiomyopathy: Assessment and Plan: Could be due to to longstanding uncontrolled hypertension however we should rule out underlying coronary artery disease (5) Morbid obesity: (6) Tobacco abuse: Plan Will switch metoprolol tartrate to Coreg 25 mg twice daily Continue lisinopril 10 mg daily, Imdur 60 mg daily and Lasix 40 mg p.o. daily I will add Farxiga 10 mg daily Continue to monitor blood pressure and renal function Consider to add Aldactone I think the patient needs cardiac catheterization to evaluate for underlying coronary artery disease. The procedure was discussed with him in details including risks and benefits and he is agreeable. I also discussed that with Dr. Hernández and will transfer the patient to [facility] to have cardiac catheterization performed.
[2024-09-30] MEDS: CARVEDILOL 25 MG TABLET PO (20:04)
[2024-09-30] MEDS: HYDRALAZINE HCL 20 MG/ML VIAL 10 MG IVP (20:04)
[2024-10-01] VITALS (24 sets, daily range): BP systolic 96–171; BP diastolic 55–116; PULSE 63–74; TEMP 36.5–36.8; O2SAT 90–95
[2024-10-01] MEDS: POTASSIUM CHLORIDE 10 MEQ ER TABLET 20 MEQ PO ×5 (05:13→21:09)
[2024-10-01 05:27] LABS: Basophils Absolute Auto 0.1 10^3/uL (0.0-0.1); Basophils Percent Auto 0.8 % (0.2-2.0); Eosinophils Absolute Auto 0.5 10^3/uL (0.0-0.7); Eosinophils Percent Auto 4.5 % (0.9-7.0); Hematocrit 47.9 % (42.0-54.0); Hemoglobin 16.1 g/dL (14.0-18.0); Immature Granulocytes Abs Auto 0.03 10^3/uL (0.00-0.03); Immature Granulocytes Pct Auto 0.3 % (0.0-0.5); Lymphocytes Percent Auto 26.9 % (20.5-60.0); Mean Corpuscular HGB Conc 33.6 g/dL (29.9-35.2); Mean Corpuscular Hemoglobin 28.4 pg (25.9-34.0); Mean Corpuscular Volume 84.6 fL (80.0-94.0); Mean Platelet Volume 12.9 fL (9.5-13.5); Neutrophils Absolute Auto 6.4 10^3/uL (1.4-6.5); Neutrophils Percent Auto 58.5 % (43.0-75.0); Platelet Count 162 10^3/uL (150-450); Red Blood Count 5.66 10^6/uL (4.70-6.10); Red Cell Distribution Width 13.5 % (11.0-15.0)
[2024-10-01 05:48] LABS: Anion Gap 7.6; BUN Creatinine Ratio 19.1; Calcium 9.3 mg/dL (8.5-10.1); Carbon Dioxide 32.6 mmol/L (21.0-32.0); Chloride 103 mmol/L (98-107); Estimated GFR (African America >60 (>=60 mL/min/1.73m^2); Estimated GFR (Non-African Ame >60 (>=60 mL/min/1.73m^2); Glucose 134 mg/dL (74-106); Potassium 3.2 mmol/L (3.5-5.1); Sodium 140 mmol/L (136-145)
--- NOTE | 2024-10-01 06:16 | P.PN_ITS ---
Progress Note: Subjective Subjective Interval history: Breathing a little easier today, blood pressure better today Exam Constitutional Vital Signs, click to edit/add: Last Vital Signs Temp 97.8 F 10/01/24 04:00 Pulse 68 10/01/24 06:00 Resp 18 10/01/24 04:00 BP 150/77 H 10/01/24 04:00 Pulse Ox 90 L 10/01/24 04:00 O2 Del Method Room Air 10/01/24 04:00 O2 Flow Rate 2 09/29/24 09:05 Documenting provider has reviewed patient's vital signs: yes Common normals: no apparent distress Chest Common normals: inspection of chest normal and palpation of chest normal Respiratory Common normals: normal respiratory effort, no retractions and clear to auscultation bilaterally Auscultation: no rales (Rales have resolved) Cardio Common normals: regular rate, regular rhythm and no murmurs GI Common normals: negative for Normal to inspection, nondistended, normoactive bowel sounds present (Obesity) Extremity Common normals: normal to inspection (Edema has resolved) Progress Note: Objective Labs Labs: Short CBC 10/01/24 Range/Units 05:12 WBC 11.0 (4.0-11.0) 10^3/uL Hgb 16.1 (14.0-18.0) g/dL Hct 47.9 (42.0-54.0) % Plt Count 162 (150-450) 10^3/uL BMP 10/01/24 05:12 Sodium 140 Potassium 3.2 L Chloride 103 Carbon Dioxide 32.6 H BUN 22.0 H Creatinine 1.15 Glucose 134 H Calcium 9.3 Progress Note: A&P Assessment and Plan (1) Congestive heart failure: (2) Pulmonary edema: (3) Hypertensive urgency: (4) Cardiomyopathy: (5) Morbid obesity: (6) Tobacco abuse: Plan Admission findings: Hypertension, uncontrolled, respiratory distress, sinus ta chycardia, elevated BNP, normal troponin, resulting in hypertensive urgency and acute combined congestive heart failure Acute combined congestive heart failure-echocardiogram with significantly reduced ejection fraction-15 to 20%-plan is for transfer for cardiac cath, patient currently on DAVEY inhibitor beta-stefan and nitrates as well as Lasix and Invokana Hypertensive urgency resulting in acute combined congestive heart failure-blood pressure still elevated so increase lisinopril and Imdur today Otkhmogfzgg-xglhcszvjy-krmhykve supplementation again today Leukocytosis with mild thrombocytopenia-resolved Cardiomegaly on chest x-tbc-tlugbdmjgxfbcm with reduced ejection fraction 15 to 20% Morbid obesity-diet management Admission status: Patient with hypertensive urgency and acute combined congestive heart failure, medically necessary treatment will more than likely span 2 midnights, inpatient status, condition deteriorated overnight so maintain inpatient status,
[2024-10-01] MEDS: ASPIRIN 81 MG TABLET.DR PO (08:37)
[2024-10-01] MEDS: CARVEDILOL 25 MG TABLET PO ×2 (08:37→21:09)
[2024-10-01] MEDS: CANAGLIFLOZIN 100 MG TABLET 300 MG PO (08:37)
[2024-10-01] MEDS: FUROSEMIDE 40 MG TABLET PO (08:37)
[2024-10-01] MEDS: ISOSORBIDE MONONITRATE 30 MG TAB.ER.24H 60 MG PO (08:38)
[2024-10-01] MEDS: LISINOPRIL 10 MG TABLET 20 MG PO (08:38)
--- NOTE | 2024-10-01 08:45 | CM.NOTE ---
Rounds made with Dr. Hernández pt awaiting bed for transfer to [facility].
[2024-10-01] MEDS: HYDRALAZINE HCL 20 MG/ML VIAL 10 MG IVP (21:54)
--- NOTE | 2024-10-01 23:35 | PC.NURSE ---
Report called to Amadeo ACUNA at [facility] at [phone].
[2024-10-02] VITALS: PULSE 75
== END 2024-10-02 00:39 | disposition short-term general hospital (02) | DRG 304 ==
LOC: ER 08:41 → MS 09:20
PROVIDERS: Admitting Provider Family Medicine; Emergency Provider Emergency Medicine; Visit Provider Family Medicine
DX: I16.0 Hypertensive urgency (principal); I50.41 Acute combined systolic (congestive) and diastolic (congestive) heart failure; I42.9 Cardiomyopathy, unspecified; M54.50 Low back pain, unspecified; E66.01 Morbid (severe) obesity due to excess calories; E87.6 Hypokalemia; B34.9 Viral infection, unspecified; R09.02 Hypoxemia; F17.210 Nicotine dependence, cigarettes, uncomplicated; Z82.49 Family history of ischemic heart disease and other diseases of the circulatory system; Z68.39 Body mass index [BMI] 39.0-39.9, adult; Z88.0 Allergy status to penicillin
CPT/HCPCS: 36415; 71045; 80048; 80076; 81001; 83735; 83880; 84484; 85025; 87070; 87205; 87804; 87811; 93005; 93306; 94761; 96374; 99285; 99406; J0360; J1938

== ENCOUNTER 2024-11-13 14:34 | Outpatient (OUT) | payer BC, SELFPAY ==
--- OUTSIDE RECORDS SUMMARY | 2014-10-07 13:30 | XMS_ITS | Continuity of Care Document ---
Author Organization [facility] Address [address] [place] [address] Phone Care Team Providers Care Dado Operator Name Role Phone Dhiraj GERBER, Fort[place] Unavailable Unavailable Procedures Procedure Date IMMUNIZATION ADMIN TDAP VACCINE >7 IM IMMUNIZATION ADMIN TDAP VACCINE >7 IM Advance Directives Directive Yes / No Effective Date File Name No Information Encounters Encounter Description Practice Location Reason(s) For Visit Diagnoses Date Provider Providers Copied on Encounter [facility], [address] [place], [place], [id number], [place] tel:[phone] [facility] No Information Dhiraj SALAZAR [place]. [address] [place], [place], [id number], [place]. tel:[phone] Family History Family Member Type Diagnosis Age At Onset No Information Immunizations Vaccine Date Status Comments Tdap administered Source: [facility] unization Record Payers Payer name Insurance type Covered green party ID Lesa womack(s) Medical [place] CI [id number] [facility] [place] CI [id number] [place] Benefits CI 43 Social History Type Description [...]
--- OUTSIDE RECORDS SUMMARY | 2024-06-27 09:45 | XMS_ITS ---
Author Organization [facility] es Address [address] [place] [address] Care Team Providers Care Director Translational Name Role Phone Nahid Lantigua Primary Care Provider REASON FOR VISIT EST CARE, HOSP F/U; BP Encounters Encounter Location Date Provider Diagnosis [facility] [address] [place] [address] 06/27/2024 Nahid Lantigua Plan Of Treatment No Information Progress Notes * VIVIANA MAGDALENOOB:1975 ( 49 yo M)Acc No.[id number]:06/27/2024 Progress Notes Patient: Rocío REYNA MAGALY Provider: Jess Lantigua :1975 A ge:48 Y S ex:Male Date:06/27/2024 [address] [facility] Subjective: * Chief Complaints: * 1 . EST CARE, HOSP F/U; BP. * Medical History: Objective: * Vitals: Assessment: Plan: * Treatment: Care Plan: * Problems: * Images: * Electronic signature of Fernando Lantigua DO on 11/13/2024 at 02:37 PM EDT Sign off status: Pending * Provider: Jess Lantigua Date: 0 06/27/2024 Generated for Giovanna valerio/Annamaria/eTgloitting on: 0 11/13/2024 02:37 PM EDT
--- OUTSIDE RECORDS SUMMARY | 2024-10-07 06:00 | XMS_ITS ---
Author Organization The [facility] in [place] Address [address] [place] [address] Care Team Providers Care Head Track Coach Name Role Phone Herbieskye Guero Primary Care Provider REASON FOR VISIT p2p Problems Problem Type SNOMED Code ICD Code Onset Dates Problem Status W/U Status Risk Notes Problem Congestive heart failure (19966569) Congestive heart failure (I50.9) Active confirmed Encounters Encounter Location Date Provider Diagnosis [facility] [address] [place] [address] 10/07/2024 Guero Hernández Congestive heart failure I50.9 Assessments Encounter Date Diagnosis (ICD Code) Assessment Notes Treatment Notes Treatment Clinical Notes Section Notes 10/07/2024 Congestive heart failure (ICD-10 - I50.9) Plan Of Treatment No Information Progress Notes * Benny CARSONOB:1975 ( 49 yo M)Acc No.[id number]:10/07/2024 Patient: Rodrigo BEAR Provider: Mono Hernández ([facility])MD :1975 A ge:49 Y S ex:Male Date:10/07/2024 [address] [facility] [id number] Check In:09:19 AM ESTCheck O ut:02:20 PM EST Subjective: * Chief Complaints: * P 2p * HPI: G eneral: 20 minute highly frustrating conversation with , stated that sinc he was better on kierra day of d/c that the entire stay is observation. * Active Problem List I10 Hypertension Modified On:10/09/2024/U Status:confirmed I50.9 Congestive heart kangjan colungare Modified On:10/07/2024 Status:confirmed I25.10 CAD (coronary artery disease) Modified On:10/09/2024 Status:confirmed * Medical History: * Medications: Objective: * Vitals: Assessment: * Assessment: 1. C ongestive heart failure - I50.9 (Primary) Plan: * Treatment: * Procedure Codes: 9 9254 CONS INPT,NPEST,COMP,(M) * * Sign off status: Completed Visit Status: C HK (Check Out) true * Provider: Mono Hernández ([facility])MD Date: 0 10/07/2024 Generated for Giovanna valerio/Annamaria/eTtaneshasmitting on: 0 11/13/2024 02:37 PM EDT History and Physical Notes * HPI (History of Present Illness) Category Sub-Category Detail Notes Category Not es General 20 minute highl y frustrating conversation with , stated that sinc he was better on day of d/c that the entire stay is observation
--- OUTSIDE RECORDS SUMMARY | 2024-10-07 10:15 | XMS_ITS ---
Author Organization The [facility] in [place] Address [address] [place] [address] Care Team Providers Care Catalytic Converter Operator Name Role Phone Guero Hernández Primary Care Provider REASON FOR VISIT Cath- F/U Encounters Encounter Location Date Provider Diagnosis [facility] [address] [place] [address] 10/07/2024 Guero Hernández Plan Of Treatment No Information Progress Notes * Benny CARSONOB:1975 ( 49 yo M)Acc No.[id number]:10/07/2024 Patient: Rusty Rodrigo REYNA :1975 A ge:49 Y S ex:Male Address:[address] [place], [address] * true * Date: Generated for Printi iman/Fatemog/eTransmitting on: 0 11/13/2024 02:37 PM EDT
--- OUTSIDE RECORDS SUMMARY | 2024-10-09 09:45 | XMS_ITS ---
Author Organization [facility] in [place] Address [address] [place] [address] Care Team Providers Care Exterior Interior Specialist Name Role Phone Guero Hernández Primary Care [...] Status W/U Status Risk Notes Problem Hypertension (71665539) Hypertension (I10) Active confirmed Problem Coronary artery disease (79355966) CAD (coronary artery disease) (I25.10) Active confirmed Vital Signs Weight 309 lbs 10/09/2024 Height 6ft 2Inches in 10/09/2024 Blood pressure systolic 134 mm Hg 10/10/19 25 Blood pressure diastolic 82 mm Hg 025 BMI 39.67 kg/m2 10/09/2024 Encounters Encounter Location Date Provider Diagnosis [facility] [address] [place] [address] 10/09/2024 Guero Hernández Hypertension I10 ; Congestive [...] * Benny CARSONOB:1975 ( 49 yo M)Acc No.[id number]:10/09/2024 Progress Note Patient: Rodrigo BEAR Provider: Mono Hernández ([facility])MD :1975 A ge:49 Y S ex:Male Date:10/09/2024 Address:[address] [place], [place] [id number] Check In:01:41 PM ESTCheck O ut:02:27 PM [...] T onsilectomy * Hospitalization/Major Diagno stic Procedure: [facility] Congestive Heart Failure and Hypertension 09/2024 * [...] Procedure Codes: * Preventive Medicine: Screenings/Counseling: B DE ACTION PLAN Above Normal BMI Follow-up D ietary management education, guidance, and counseling * * Sign off status: Completed Visit Status: C HK (Check Out) true * Provider: Mono Hernández ([facility])MD Date: 0 10/09/2024 Generated for Printi ng/Faxing/eTransmitting on: 0 11/13/2024 02:37 PM EDT History [...]
--- OUTSIDE RECORDS SUMMARY | 2024-11-13 14:37 | XMS_ITS | Patient Health Record ---
Author Organization [facility] in [place] Address [address] [place] [address] Care Team Providers Care Food And Beverage Service Manager Name Role Phone Guero Hernández Primary Care Provider Allergies Allergen (clinical drug ingredient) Drug/Non Drug Allergy documented on EMR Reaction Allergy Type Onset Date Status Penicillin anaphylaxis Drug Allergy Acti ve Results Component Value Reference Range Notes CA echo doppler complete Reviewed date:09/30/2024 08:17:54 PM Interpretation: Performing Lab: Notes/Report: Source Facility: [place] [address] Cardiology Report Signed Patient: MAGALY CARSON MR#: [id number] : 1975 Acct:[id number] Age/Sex: 49 / M ADM Date: 09/28/24 Loc: MS 215-[address]: Claude Hernández M.D. Ordering Physician: Claude Hernández M.D. Date of Service: 09/30/24 Procedure(s): CA echo doppler complete Accession Number(s): [id number] cc: Claude Hernández M.D.; Physician,Non-Staff Rayne Patient Name: MAGALY CARSON MR#: [id number] : 1975 Exam Date: 09/30/2024 Ordering Doctor: DR Claude Hernández . ECHOCARDIOGRAM REPORT PROCEDURE: CA ECHO DOPPLER COMPLETE INDICATIONS: Dyspnea, congestive heart failure, hypertension, smoker COMPARISON: None. DESCRIPTION: COMPLETE ECHOCARDIOGRAM Real-time transthoracic echocardiography with 2D, M-mode, spectral and color flow Doppler performed. QUALITY: Technical quality was good. LEFT VENTRICLE: Normal chamber size. Moderate concentric left ventricular hypertrophy. LV EF: Global left ventricular systolic function is severely reduced; estimated ejection fraction is 15 to 20%. Calculated left ventricular ejection fraction is 20%. Diffuse global hypokinesis. DIASTOLIC: Grade III diastolic dysfunction. ATRIAL SEPTUM: Visually appears intact. LEFT ATRIUM: Mild dilatation. RIGHT ATRIUM: Mild dilatation. RIGHT VENTRICLE: Normal chamber size. Decreased right ventricular systolic function. TRICUSPID VALVE: Normal mobility and thickness. No stenosis with no regurgitation. Unable to assess right-sided pressures due to lack of measurable tricuspid regurgitation. MITRAL VALVE: Normal mobility and thickness. No evidence of mitral valve stenosis. There is no mitral annular calcification. Trivial mitral regurgitation. AORTIC VALVE: Normal trileaflet appearance. No visible sclerosis. Normal leaflet mobility. No evidence of aortic valve stenosis. Trivial aortic regurgitation. AORTIC ROOT: Normal diameter and appearance. Ascending aorta is normal in size. PULMONIC VALVE: Normal thickness and mobility. No stenosis. No regurgitation. PERICARDIUM: No evidence of pericardial effusion. IVC: IVC is dilated (2.7 cm), does not collapse. CONCLUSION: 1. Global left ventricular systolic function is severely reduced; visually estimated ejection fraction is 15 to 20% 2. The right ventricle is normal in size with reduced systolic function 3. Grade 3, severe diastolic dysfunction 4. Moderate left ventricular hypertrophy 5. Biatrial dilatation 6. No significant valvular abnormalities Adult Echocardiography Procedure Report Left Ventricle LVEDD (3.7 - 5.6 cm): 5.52 cm LVESD (2.2 - 4.0 cm): 4.85 cm LVIVS thickness (0.6 - 1.2 cm): 1.46 cm LVPW thickness (0.5 - 1.0 cm): 1.59 cm e': 0.08 m/s E - e': 11.37 LVOT Max Gradient: 1.82 mm[Hg] LVOT Area (cm2): 0.67 m/s Peak Velocity (LVOT): 0.67 m/s Mean Velocity (LVOT): 0.48 m/s LVOT Diameter 2.70 cm Left Atrium LA Volume Index (2D A2C): 36.07 ml/m2 Left Atrium Systolic Dimension: 5.00 cm Mitral Valve MV E to A Ratio: 3.01 Mitral Valve A-Wave Peak Velocity: 0.31 m/s Mitral Valve E-Wave Peak Velocity: 0.93 m/s Right Ventricle Aorta AO Root Diam: 3.53 cm Ascending Ao Diam: 3.20 cm Aortic Valve AoV Area (Peak Vlad): 3.25 cm2, 3.25 cm2 AoV Area (VTI): 2.95 cm2, 2.95 cm2 Peak Velocity(Antegrade Flow): 1.18 m/s Peak Gradient(Antegrade Flow): 5.61 mm[Hg] Mean Velocity(Antegrade Flow): 0.84 m/s Mean Gradient(Antegrade Flow): 3.26 mm[Hg] Velocity Time Integral: 23.14 cm Tricuspid Valve Pulmonic Valve Mean Gradient: 1.04 mm[Hg] Mean Velocity: 0.48 m/s Peak Velocity: 0.72 m/s, 0.85 m/s Peak Gradient: 2.87 mm[Hg], 2.06 mm[Hg] Right Atrium Right Atrium Systolic Pressure: 60.17 ml, 60.17 ml Dictated by: Florecita Ashraf M.D. on 09/30/2024 at 14:31 Approved by: Florecita Ashraf M.D. on 09/30/2024 at 14:35 Dictated By: Florecita Ashraf M.D. Signed By: 09/30/241436 DD/ 34 TD/TT: Etl Application Developer: [place] [address] Cardiology Report Signed Patient: MAGALY CARSON MR#: [id number] : 1975 Acct:[id number] Age/Sex: 49 / M ADM Date: 09/28/24 Loc: MS 215-[address]: Benigno Hernández M.D. Ordering Physician: Claude Hernández M.D. Date of Service: 09/30/24 Procedure(s): CA ech o doppler complete Accession Number(s): [id number] cc: Claude Hernández M.D. ; Physician,Non-Staff Rayne Patient Name: MAGALY CARSON MR#: [id number] : 1975 Exam Date: 09/30/2024 Ordering Doctor: DR Claude Hernández . ECHOCARDIOGRAM REPORT PROCEDURE: CA ECHO DOPPLER COMPLETE INDICATIONS: Dyspnea , congestive heart failure, hypertension, smoker COMPARISON: None. DESCRIPTION: COMPLET E ECHOCARDIOGRAM Real-time transthoracic echocardiography wit h 2D, M-mode, spectral and color flow Doppler performed. QUALITY: Technical quality was good. LEFT VENTRICLE: Norm al chamber size. Moderate concentric left ventricular hypertrophy. LV EF: Global left ventricular systolic function is severely reduced; estimated ejection fraction is 15 to 20%. Calculated left ventricular ejection fraction is 20%. Dif fuse global hypokinesis. DIASTOLIC: Grade III diastolic dysfunction. ATRIAL SEPTUM: Visua lly appears intact. LEFT ATRIUM: Mild dilatation. RIGHT ATRIUM: Mild dilatation. RIGHT VENTRICLE: No rmal chamber size. Decreased right ventricular systolic function. TRICUSPID VALVE: Nor mal mobility and thickness. No stenosis with no regurgitation. Unabl e to assess right-sided pressures due to lack of measurable tricuspid regurgitation. MITRAL VALVE: Normal mobility and thickness. No evidence of mitral valve stenosis. There is n o mitral annular calcification. Trivial mitral regurgitation. AORTIC VALVE: Normal trileaflet appearance. No visible sclerosis. Normal leaflet mobility. No evidence of aortic valve stenosis. Trivial aortic regurgitation. AORTIC ROOT: Normal diameter and appearance. Ascending aorta is normal in size. PULMONIC VALVE: Norm al thickness and mobility. No stenosis. No regurgitation. PERICARDIUM: No evid ence of pericardial effusion. IVC: IVC is dilated (2.7 cm), does not collapse. CONCLUSION: 1. Global left ventricular systolic function is severely reduced; visually estimated ejection fraction is 15 to 20% 2. The right ventric le is normal in size with reduced systolic function 3. Grade 3, severe diastolic dysfunction 4. Moderate left ventricular hypertrophy 5. Biatrial dilatation 6. No significant valvular abnormalities Adult Echocardiograp hy Procedure Report Left Ventricle LVEDD (3.7 - 5.6 cm) : 5.52 cm LVESD (2.2 - 4.0 cm) : 4.85 cm LVIVS thickness (0.6 - 1.2 cm): 1.46 cm LVPW thickness (0.5 - 1.0 cm): 1.59 cm e': 0.08 m/s E - e': 11.37 LVOT Max Gradient: 1 .82 mm[Hg] LVOT Area (cm2): 0.67 m/s Peak Velocity (LVOT) : 0.67 m/s Mean Velocity (LVOT) : 0.48 m/s LVOT Diameter 2.70 cm Left Atrium LA Volume Index (2D A2C): 36.07 ml/m2 Left Atrium Systolic Dimension: 5.00 cm Mitral Valve MV E to A Ratio: 3.01 Mitral Valve A-Wave Peak Velocity: 0.31 m/s Mitral Valve E-Wave Peak Velocity: 0.93 m/s Right Ventricle Aorta AO Root Diam: 3.53 cm Ascending Ao Diam: 3.20 cm Aortic Valve AoV Area (Peak Vlad): 3.25 cm2, 3.25 cm2 AoV Area (VTI): 2.95 cm2, 2.95 cm2 Peak Velocity(Antegr sander Flow): 1.18 m/s Peak Gradient(Antegr sander Flow): 5.61 mm[Hg] Mean Velocity(Antegr sander Flow): 0.84 m/s Mean Gradient(Antegr sander Flow): 3.26 mm[Hg] Velocity Time Integr al: 23.14 cm Tricuspid Valve Pulmonic Valve Mean Gradient: 1.04 mm[Hg] Mean Velocity: 0.48 m/s Peak Velocity: 0.72 m/s, 0.85 m/s Peak Gradient: 2.87 mm[Hg], 2.06 mm[Hg] Right Atrium Right Atrium Systoli c Pressure: 60.17 ml, 60.17 ml Dictated by: Florecita Ashraf M.D. on 09/30/2024 at 14:31 Approved by: Florecita Ashraf M.D. on 09/30/2024 at 14:35 Dictated By: Florecita Ashraf M.D. Signed By: 09/30/24 1437 DD/ 1435 TD/TT: Etl Application Developer: BNP Reviewed date:10/01/2024 01:04:29 PM Interpretation: Performing Lab: Notes/Report: [facility] , NT Pro B Type Natriuretic Pept 446.0 <=450.0 pg/mL Performing Lab: see note ML - [facility] LB PROF CHEM 8 (BAS METB) Reviewed date:10/01/2024 01:04:29 PM Interpretation: Performing Lab: Notes/Report: [facility] , Sodium 140 136-145 mmol/L Potassium 3.2 3.5-5.1 mmol/L Chloride 103 98-107 mmol/L Carbon Dioxide 32.6 21.0-32.0 mmol/L Anion Gap 7.6 Glucose 134 74-106 mg/dL Blood Urea Nitrogen 22.0 7.0-18.0 mg/dL Creatinine 1.15 0.70-1.30 mg/dL Estimated GFR ( Henny >60 >=60 mL/min/1.73m 2 Estimated GFR (Non- Barbara >60 >=60 mL/min/1.73m 2 BUN Creatinine Ratio 19.1 Calcium 9.3 8.5-10.1 mg/dL Performing Lab: see note ML - [facility] LB CBC AUTO DIFF Reviewed date:10/01/2024 01:04:29 PM Interpretation: Performing Lab: Notes/Report: [facility] , White Blood Count 11.0 4.0-11.0 10 3/uL Red Blood Count 5.66 4.70-6.10 10 6/uL Hemoglobin 16.1 14.0-18.0 g/dL Hematocrit 47.9 42.0-54.0 % Mean Corpuscular Volume 84.6 80.0-94.0 fL Mean Corpuscular Hemoglobin 28.4 25.9-34.0 pg Mean Corpuscular HGB Conc 33.6 29.9-35.2 g/dL Red Cell Distribution Width 13.5 11.0-15.0 % Platelet Count 162 150-450 10 3/uL Mean Platelet Volume 12.9 9.5-13.5 fL Neutrophils Percent Auto 58.5 43.0-75.0 % Lymphocytes Percent Auto 26.9 20.5-60.0 % Monocytes Percent Auto 9.0 1.7-12.0 % Eosinophils Percent Auto 4.5 0.9-7.0 % Basophils Percent Auto 0.8 0.2-2.0 % Immature Granulocytes Pct Auto 0.3 0.0-0.5 % Neutrophils Absolute Auto 6.4 1.4-6.5 10 3/uL Lymphocytes Absolute Auto 3.0 1.2-3.8 10 3/uL Monocytes Absolute Auto 1.0 0.3-0.8 10 3/uL Eosinophils Absolute Auto 0.5 0.0-0.7 10 3/uL Basophils Absolute Auto 0.1 0.0-0.1 10 3/uL Immature Granulocytes Abs Auto 0.03 0.00-0.03 10 3/uL Performing Lab: see note ML - [facility] LB Reason For Referral No Information Medications Medication SIG (Take, Route, Frequency, Duration) Notes Start Date End Date Status Carvedilol 25 MG TAKE 1 TABLET BY MENDEZ TH TWICE DAILY Oral for 90 Days Active Atorvastatin Calcium 40 MG TAKE 1 TABLET BY MOUTH AT BEDTIME Oral for 90 Days Active Aspirin Low Dose 81 MG CHEW & SWALLOW 1 TABLET BY MOUTH IN THE MORNING Oral for 96 Days Active Spironolactone 25 MG TAKE 1 TABLET BY [...] THE MORNING Oral for 30 Days Active Social History Tobacco Use: Social [...] Problem Status W/U Status Risk Notes Problem Cardiomegaly (0797672) Cardiomegaly (I51.7) Active confirmed Problem Morbid obesity (908648289) Morbid obesity (E66.01) Active confirmed Problem Hypertension (98698148) Hypertension (I10) Active confirmed Problem Congestive heart failure (04228969) Congestive heart failure (I50.9) Active confirmed Problem Coronary artery disease (56644910) CAD (coronary artery disease) (I25.10) Active confirmed Problem Pulmonary edema (66574589) Pulmonary edema (J81.1) Active confirmed Problem Hypertensive urgency (983092263) Hypertensive urgency (I16.0) Active confirmed Vital Signs Blood pressure diastolic 82 mm Hg 10/09/2024 Height 6ft 2Inches in 10/09/2024 Blood pressure systolic 134 mm Hg 10/09/2024 Weight 309 lbs 10/09/2024 BMI 39.67 kg/m2 10/09/2024 Encounters Encounter Location Date Provider Diagnosis [facility] [address] [place] [address] 09/30/2024 Guero Hernández [facility] [address] [place] [address] 10/07/2024 Guero Hernández [facility] [address] [place] [address] 10/09/2024 Guero Hernández Hypertension I10 ; Congestive heart failure I50.9 and CAD (coronary artery disease) I25.10 [facility] [address] [place] [address] 10/07/2024 Guero Hernández Congestive heart kang lure I50.9 Assessments Encounter Date Diagnosis (ICD Code) Assessment Notes Treatment Notes Treatment Clinical Notes Section Notes 10/07/2024 Congestive heart failure (ICD-10 - I50.9) 10/09/2024 Hypertension (ICD-10 - I10) 10/09/2024 Congestive heart failure (ICD-10 - I50.9) 10/09/2024 CAD (coronary artery disease) (ICD-10 - I25.10) Plan Of Treatment No Information Insurance Providers Payer Name Payer Address Payer Phone Subscriber Number Group Number Insured Name Patient Relationship to Insured Coverage Start Date Coverage End Date [employer] PPO PLUS LOCAL PLAN [address] [place] [phone] [id number] Magaly Carson Self - patient is the insured Medical (General) History Medical History History ICD Code Hypertension I10 Congestive heart failure I50.9 Surgical History Surgery Date(Month/Year) Tonsilectomy Hospitalization History Reason Date(Month/Year) [facility] Congestive Heart F ailure and Hypertension 09/2024
--- OUTSIDE RECORDS SUMMARY | 2024-11-13 14:37 | XMS_ITS | Patient Health Record ---
Author Organization [facility] Address [address] [place] [address] Care Team Providers Care Sample Clerk Name Role Phone Nahid Lantigua Primary Care Provider [phone] Reason For Referral No Information Plan Of Treatment No Information
[2024-11-13 15:04] LABS: Basophils Absolute Auto 0.1 10^3/uL (0.0-0.1); Basophils Percent Auto 0.5 % (0.2-2.0); Eosinophils Absolute Auto 0.5 10^3/uL (0.0-0.7); Eosinophils Percent Auto 3.5 % (0.9-7.0); Hematocrit 43.5 % (42.0-54.0); Hemoglobin 14.9 g/dL (14.0-18.0); Immature Granulocytes Abs Auto 0.05 10^3/uL (0.00-0.03); Immature Granulocytes Pct Auto 0.4 % (0.0-0.5); Lymphocytes Percent Auto 23.2 % (20.5-60.0); Mean Corpuscular HGB Conc 34.3 g/dL (29.9-35.2); Mean Corpuscular Hemoglobin 29.2 pg (25.9-34.0); Mean Corpuscular Volume 85.1 fL (80.0-94.0); Mean Platelet Volume 12.8 fL (9.5-13.5); Monocytes Absolute Auto 1.2 10^3/uL (0.3-0.8); Neutrophils Absolute Auto 8.2 10^3/uL (1.4-6.5); Neutrophils Percent Auto 63.4 % (43.0-75.0); Platelet Count 182 10^3/uL (150-450); Red Blood Count 5.11 10^6/uL (4.70-6.10); Red Cell Distribution Width 13.2 % (11.0-15.0); White Blood Count 12.9 10^3/uL (4.0-11.0)
[2024-11-13 15:18] LABS: Anion Gap 12.9; BUN Creatinine Ratio 16.2; Carbon Dioxide 28.4 mmol/L (21.0-32.0); Chloride 103 mmol/L (98-107); Estimated GFR (African America >60 (>=60 mL/min/1.73m^2); Estimated GFR (Non-African Ame 59 (>=60 mL/min/1.73m^2); Glucose 143 mg/dL (74-106); Potassium 4.3 mmol/L (3.5-5.1); Sodium 140 mmol/L (136-145)
== END 2024-11-13 14:35 | disposition home or self-care (01) ==
LOC: LAB 14:35
PROVIDERS: PCP Family Medicine; Visit Provider Internal Medicine Cardiovascular Disease
DX: I25.10 Atherosclerotic heart disease of native coronary artery without angina pectoris (principal)
CPT/HCPCS: 36415; 80048; 85025

== ENCOUNTER 2024-12-19 07:15 | Outpatient (OUT) | payer BC, SELFPAY ==
--- OUTSIDE RECORDS SUMMARY | 2014-10-07 13:30 | XMS_ITS | Continuity of Care Document ---
Author Organization [facility] Address [address] [place] [address] Phone Care Team Providers Care Linker Up Name Role Phone Dhiraj GERBER, Fort[place] Unavailable Unavailable Procedures Procedure Date IMMUNIZATION ADMIN TDAP VACCINE >7 IM IMMUNIZATION ADMIN TDAP VACCINE >7 IM Advance Directives Directive Yes / No Effective Date File Name No Information Encounters Encounter Description Practice Location Reason(s) For Visit Diagnoses Date Provider Providers Copied on Encounter [facility], [address], [place], [id number], [place] tel:[phone] [facility] No Information Dhiraj SALAZAR [place]. [address], [place], [id number], [place]. tel:[phone] Family History Family Member Type Diagnosis Age At Onset No Information Immunizations Vaccine Date Status Comments Tdap administered Source: [facility] unization Record Payers Payer name Insurance type Covered green party ID Lesa womack(s) Medical [place] CI [id number] [facility] [place] CI [id number] [place] Benefits CI 43 Social History Type Description [...]
--- OUTSIDE RECORDS SUMMARY | 2024-06-27 09:45 | XMS_ITS ---
Author Organization [facility] es Address [address] [place] [address] Care Team Providers Care Salon Manager Name Role Phone Nahid Lantigua Primary Care Provider REASON FOR VISIT EST CARE, HOSP F/U; BP Encounters Encounter Location Date Provider Diagnosis [facility] [address] [place] [address] 06/27/2024 Nahid Lantigua Plan Of Treatment No Information Progress Notes * VIVIANA MAGDALENOOB:1975 ( 49 yo M)Acc No.[id number]:06/27/2024 Progress Notes Patient: Rocío REYNA MAGALY Provider: Jess Lantigua :1975 A ge:48 Y S ex:Male Date:06/27/2024 [address] [id number] Subjective: * Chief Complaints: * 1 . EST CARE, HOSP F/U; BP. * Medical History: Objective: * Vitals: Assessment: Plan: * Treatment: Care Plan: * Problems: * Images: * Electronic signature of Fernando Lantigua DO on 12/14/2024 at 09:45 AM EDT Sign off status: Pending * Provider: Jess Lantigua Date: 0 06/27/2024 Generated for Giovanna valerio/Annamaria/Stephanie on: 0 12/14/2024 09:45 AM EDT
--- OUTSIDE RECORDS SUMMARY | 2024-10-07 06:00 | XMS_ITS ---
Author Organization The [facility] in [place] Address [address] [place] [address] Care Team Providers Care Assembler Dc Field Yoke Name Role Phone Herbieskye Guero Primary Care Provider REASON FOR VISIT p2p Problems Problem Type SNOMED Code ICD Code Onset Dates Problem Status W/U Status Risk Notes Problem Congestive heart failure (45045091) Congestive heart failure (I50.9) Active confirmed Encounters Encounter Location Date Provider Diagnosis [facility] [address] [place] [address] 10/07/2024 Guero Hernández Congestive heart failure I50.9 Assessments Encounter Date Diagnosis (ICD Code) Assessment Notes Treatment Notes Treatment Clinical Notes Section Notes 10/07/2024 Congestive heart failure (ICD-10 - I50.9) Plan Of Treatment No Information Progress Notes * Benny CARSONOB:1975 ( 49 yo M)Acc No.[id number]:10/07/2024 Patient: Rodrigo BEAR Provider: Mono Hernández ([facility])MD :1975 A ge:49 Y S ex:Male Date:10/07/2024 [facility] [id number] Check In:09:19 AM ESTCheck O ut:02:20 PM [...] (Check Out) true * Provider: Mono Hernández ([facility])MD Date: 0 10/07/2024 Generated for Giovanna valerio/Annamaria/Alma Rosasmitting on: 0 12/14/2024 09:45 AM EDT History and Physical Notes * HPI (History of Present Illness) Category Sub-Category Detail Notes Category Not es General 20 minute highl y frustrating conversation with , stated that sinc he was better on day of d/c that the entire stay is observation
--- OUTSIDE RECORDS SUMMARY | 2024-10-07 10:15 | XMS_ITS ---
Author Organization The [facility] in [place] Address [address] [place] [address] Care Team Providers Care Transmitter Tester Name Role Phone Guero Hernández Primary Care Provider REASON FOR VISIT Cath- F/U Encounters Encounter Location Date Provider Diagnosis [facility] [address] [place] [address] 10/07/2024 Guero Hernández Plan Of Treatment No Information Progress Notes * Benny CARSONOB:1975 ( 49 yo M)Acc No.[id number]:10/07/2024 Patient: Rusty Rodrigo REYNA :1975 A ge:49 Y S ex:Male Address:[address] [place], [address] * true * Date: Generated for Racieli iman/Fatemog/eTransmitting on: 0 12/14/2024 09:46 AM EDT
--- OUTSIDE RECORDS SUMMARY | 2024-10-09 09:45 | XMS_ITS ---
Author Organization The [facility] in [place] Address [address] [place] [address] Care Team Providers Care Operations Architect Name Role Phone Guero Hernández Primary Care Provider Allergies Allergen (clinical drug ingredient) Drug/Non Drug Allergy documented on EMR Reaction Allergy Type Onset Date Status Penicillin anaphylaxis Drug Allergy Acti ve REASON FOR VISIT Per Guero Hernández, Congestive Heart Failure and Hypertension, CABG Sched. on October 21 Medications Medication SIG (Take, Route, Frequency, Duration) Notes Start Date End Date Status Spironolactone 25 MG TAKE 1 TABLET BY MO UTH IN THE MORNING Oral for 90 Days Active Lisinopril 20 MG TAKE 1 TABLET BY MENDEZ TH IN THE MORNING Oral for 90 Days Active Isosorbide Mononitrate ER 30 MG TAKE 1 TABLET BY MOUTH IN THE MORNING. DO NOT CRUSH OR CHEW Oral for 90 Days Active Furosemide 40 MG TAKE 1 TABLET BY MENDEZ TH TWICE DAILY Oral for 30 Days Active Farxiga 10 MG TAKE 1 TABLET BY MENDEZ TH IN THE MORNING Oral for 30 Days Active Carvedilol 25 MG TAKE 1 TABLET BY MENDEZ TH TWICE DAILY Oral for 90 Days Active Atorvastatin Calcium 40 MG TAKE 1 TABLET BY MOUTH AT BEDTIME Oral for 90 Days Active Aspirin Low Dose 81 MG CHEW & SWALLOW 1 TABLET BY MOUTH IN THE MORNING Oral for 96 Days Active Social History Tobacco Use: Social History Observation Description Date Details (start date - stop date) Former Smoker NA - NA Tobacco Control (Standard) Question Answer Notes Tobacco use: Former smoker How long has it been since you last smoked? 1-3 months AUDIT-C (Standard) Question Answer Notes Did you have a drink containing alcohol in the p ast year? No Points 0 Interpretation Negative Problems Problem Type SNOMED Code ICD Code Onset Dates Problem Status W/U Status Risk Notes Problem Hypertension (12981232) Hypertension (I10) Active confirmed Problem Coronary artery disease (46096084) CAD (coronary artery disease) (I25.10) Active confirmed Vital Signs Weight 309 lbs 10/09/2024 Height 6ft 2Inches in 10/09/2024 Blood pressure systolic 134 mm Hg 10/10/19 25 Blood pressure diastolic 82 mm Hg 025 BMI 39.67 kg/m2 10/09/2024 Encounters Encounter Location Date Provider Diagnosis [facility] [address] [place] [address] 10/09/2024 Guero Hernández Hypertension I10 ; Congestive heart failure I50.9 and CAD (coronary artery disease) I25.10 Assessments Encounter Date Diagnosis (ICD Code) Assessment Notes Treatment Notes Treatment Clinical Notes Section Notes 10/09/2024 Hypertension (ICD-10 - I10) 10/09/2024 Congestive heart failure (ICD-10 - I50.9) 10/09/2024 CAD (coronary artery disease) (ICD-10 - I25.10) Plan Of Treatment No Information Progress Notes * Benny CARSONOB:1975 ( 49 yo M)Acc No.[id number]:10/09/2024 Progress Note Patient: Rodrigo BEAR Provider: Mono Hernández ([facility])MD :1975 A ge:49 Y S ex:Male Date:10/09/2024 Address:[address] [place], [place] [id number] Check In:01:41 PM ESTCheck O ut:02:27 PM EST Subjective: * Chief Complaints: * P er Guero HoyCongestive Heart Failure and HypertensionCABG Sched. on October 21 * HPI: G eneral: Fatigue - no inc in actiyg- has EF 15%. * ROS: E ENT: hearing changes d enies, denies. v isual changes d enies, denies. n on-healing mouth sores d enies, denies. s wollen glands or neck lumps?denies, denies. h oarseness d enies, denies. s ore throat d enies, denies. d ifficulty swallowing d enies, denies. n ose bleeds d enies, denies. n mayra congestion d enies, denies. e ar ache d enies, denies. e ar discharge d enies, denies.?ringing in ears d enies, denies. l ight sensitivity d enies, denies. e ye pain denies, denies. b lurring d enies, denies. e ye irritation d enies, denies. d ouble vision d enies, denies. v ision loss d enies, denies. G eneral/Constitutional: Sweats: D enies, Denies. F atigue d enies, denies.?Sleep problems d enies, denies. A norexia d enies, denies. M alaise d enies, denies. W eight loss d enies, denies. F atigue or Weakness d enies, denies. F ever or Chills d enies, denies. C ardiovascular: Shortness of Breath w/lying flat d enies, denies. L ightheadedness/dizziness d enies, denies. C hest tightness/ heavy pressure d enies, denies.?Swelling of legs, ankles, or feet d enies, denies. W aking up with shortness of breath denies, denies. C hest pain d enies, denies. P alpitations d enies, denies.?Weight gain d enies, denies. R espiratory: Chronic or frequent cough d enies, denies. C oughing up blood d enies, denies. D ifficulty breathing d enies, denies. P roductive cough?denies, denies. S noring d enies, denies. S hortness of breath that awakens from sleep (PND) d enies, denies. C hest pain d enies, denies. S putum production d enies, denies. W heezing d enies, denies. M usculoskeletal: Joint pain d enies, denies. J oint Fluid d enies, denies. B ack pain d enies, denies. K nee pain d enies, denies. N radha pain d enies, denies. J oint Stiffness d enies, denies. M uscle cramps d enies, denies. Weakness of muscles d enies, denies. A rthritis d enies, denies. M uscle aches?denies, denies. P ain in shoulder(s) d enies, denies. S wollen joints d enies, denies. * Active Problem List I10 Hypertension Modified On:10/09/2024/U Status:confirmed I50.9 Congestive heart kang lure Modified On:10/07/2024/U Status:confirmed I25.10 CAD (coronary artery disease) Modified On:10/09/2024U Status:confirmed * Medical History: * Surgical History: T onsilectomy * Hospitalization/Major Diagno stic Procedure: [facility] Congestive Heart Failure and Hypertension 09/2024 * Family History: F ather: , Massive Heart Attack, diagnosed with Unspecified essential hypertension, Unspecified heart disease. M other: alive, Massive Heart Attack, diagnosed with Unspecified essential hypertension, Unspecified heart disease. B rother(s): , Massive Heart Attack, diagnosed with Unspecified heart disease. S on(s): alive. 1 brother(s) . 1 son(s) - healthy. .? * Social History: T obacco Use: T obacco Control (Standard) T obacco use: F ormer smoker H ow long has it been since you last smoked??1-3 months D rug/Alcohol: A RAKAN-C (Standard) D id you have a drink containing alcohol in the past year? N o P oints 0 I nterpretation N egative * Medications: T akingAspirin Low Dose(Aspirin) 81 MG Tablet Chewable CHEW & SWALLOW 1 TABLET BY MOUTH IN THE MORNING Oral Atorvastatin Calcium 40 MG Tablet TAKE 1 TABLET BY MOUTH AT BEDTIME Oral Carvedilol 25 MG Tablet TAKE 1 TABLET BY MOUTH TWICE DAILY Oral Farxiga(Dapagliflozin Propanediol) 10 MG Tablet TAKE 1 TABLET BY MOUTH IN THE MORNING Oral Furosemide 40 MG Tablet TAKE 1 TABLET BY MOUTH TWICE DAILY Oral Isosorbide Mononitrate ER 30 MG Tablet Extended Release 24 Hour TAKE 1 TABLET BY MOUTH IN THE MORNING. DO NOT CRUSH OR CHEW Oral Lisinopril 20 MG Tablet TAKE 1 TABLET BY MOUTH IN THE MORNING Oral Spironolactone 25 MG Tablet TAKE 1 TABLET BY MOUTH IN THE MORNING Oral Medication List reviewed and reconciled with the patientTaking Aspirin Low Dose(Aspirin) 81 MG Tablet Chewable CHEW & SWALLOW 1 TABLET BY MOUTH IN THE MORNING Oral Taking Atorvastatin Calcium 40 MG Tablet TAKE 1 TABLET BY MOUTH AT BEDTIME Oral Taking Carvedilol 25 MG Tablet TAKE 1 TABLET BY MOUTH TWICE DAILY Oral Taking Farxiga(Dapagliflozin Propanediol) 10 MG Tablet TAKE 1 TABLET BY MOUTH IN THE MORNING Oral Taking Furosemide 40 MG Tablet TAKE 1 TABLET BY MOUTH TWICE DAILY Oral Taking Isosorbide Mononitrate ER 30 MG Tablet Extended Release 24 Hour TAKE 1 TABLET BY MOUTH IN THE MORNING. DO NOT CRUSH OR CHEW Oral Taking Lisinopril 20 MG Tablet TAKE 1 TABLET BY MOUTH IN THE MORNING Oral Taking Spironolactone 25 MG Tablet TAKE 1 TABLET BY MOUTH IN THE MORNING Oral Medication List reviewed and reconciled with the patient * Allergies: P enicillin: anaphylaxisno[Allergies Verified] Objective: * Vitals: W t:309lbs, Ht: 6ft 2Inches, BP:134/82mm Hg, BMI:39.67Index, Ht-cm: 187.96 cm, Wt- k.16 kg. * Examination: P hysical Exam: GENERAL: w ell developed, well nourished, in no acute distress , well developed, well nourished, in no acute distress. HEAD: n ormocephalic/atraumatic , normocephalic/atraumatic.? EYES: p upils equal, round and reactive to light, conjunctivae and sclerae normal , pupils equal, round and reactive to light, conjunctivae and sclerae normal.? EARS: n o deformity or lesion of external ear, canals and TM appear normal bilaterally, TM's intact, not inflamed with normal light reflex, hearing grossly normal to conversational speech , no deformity or lesion of external ear, canals and TM appear normal bilaterally, TM's intact, not inflamed with normal light reflex, hearing grossly normal to conversational speech. NOSE: n o deformity, discharge, inflammation, or lesions , no deformity, discharge, inflammation, or lesions. MOUTH: m ucous membranes moist, normal oropharynx and posterior pharynx without lesions or exudates, tongue normal, dentition normal , mucous membranes moist, normal oropharynx and posterior pharynx without lesions or exudates, tongue normal, dentition normal. NECK: n radha supple, no masses or palpable cervical nodes, trachea midline, thyroid without nodules, masses, tenderness, or enlargement , neck supple, no masses or palpable cervical nodes, trachea midline, thyroid without nodules, masses, tenderness, or enlargement. CHEST: n o chest wall deformity, no chest wall tenderness , no chest wall deformity, no chest wall tenderness. LUNGS: n ormal respiratory effort and clear to auscultation, no wheezes, rales, or rhonchi, good air exchange , normal respiratory effort and clear to auscultation, no wheezes, rales, or rhonchi, good air exchange. CARDIO: r egular rate and rhythm, normal S1 and S2, nor murmur, rub, or gallop , regular rate and rhythm, normal S1 and S2, nor murmur, rub, or gallop. PULSES: n ormal capillary refill , normal capillary refill.? ABDOMEN: s oft, non-distended, non-tender, no masses , soft, non-distended, non-tender, no masses. MUSCULOSKELETAL: n o deformity or scoliosis noted, normal range of motion, joints normal, no erythema, edema, effusion, or ecchymosis , no deformity or scoliosis noted, normal range of motion, joints normal, no erythema, edema, effusion, or ecchymosis. EXTREMITY: n o clubbing, cyanosis, edema, or deformity with normal ROM in both upper and lower bilateral extremities , no clubbing, cyanosis, edema, or deformity with normal ROM in both upper and lower bilateral extremities. NEUROLOGIC: g rossly normal , grossly normal. SKIN: n o rashes, ulcerations, or suspicious lesions , no rashes, ulcerations, or suspicious lesions. LYMPH NODES: n o cervical adenopathy, nodes normal , no cervical adenopathy, nodes normal. MENTAL STATUS: a lert and oriented x3, normal mood and affect , alert and oriented x3, normal mood and affect. Assessment: * Assessment: 1. H ypertension - I10 (Primary) 2 . C ongestive heart failure - I50.9 3 . C AD (coronary artery disease) - I25.10 Plan: * Treatment: * Procedure Codes: * Preventive Medicine: Screenings/Counseling: B NM ACTION PLAN Above Normal BMI Follow-up D ietary management education, guidance, and counseling * * Sign off status: Completed Visit Status: C HK (Check Out) true * Provider: Mono Hernández ([facility])MD Date: 0 10/09/2024 Generated for Printi ng/Faxing/eTransmitting on: 0 12/14/2024 09:46 AM EDT History and Physical Notes * HPI (History of Present Illness) Category Sub-Category Detail Notes Category Not es General Fatigue - no in c in actiyg- has EF 15% Examination Category Sub-Category Detail Notes Category Not es Physical Exam GENERAL: well developed, well nourished, in no acute distress , well developed, well nourished, in no acute distress HEAD: normocephalic/atraum atic , normocephalic/atraumatic EYES: pupils equal, round and reactive to light, conjunctivae and sclerae normal , pupils equal, round and reactive to light, conjunctivae and sclerae normal EARS: no deformity or lesi on of external ear, canals and TM appear normal bilaterally, TM's intact, not inflamed with normal light reflex, hearing grossly normal to conversational speech , no deformity or lesion of external ear, canals and TM appear normal bilaterally, TM's intact, not inflamed with normal light reflex, hearing grossly normal to conversational speech NOSE: no deformity, discha rge, inflammation, or lesions , no deformity, discharge, inflammation, or lesions MOUTH: mucous membranes aracely st, normal oropharynx and posterior pharynx without lesions or exudates, tongue normal, dentition normal , mucous membranes moist, normal oropharynx and posterior pharynx without lesions or exudates, tongue normal, dentition normal NECK: neck supple, no mass es or palpable cervical nodes, trachea midline, thyroid without nodules, masses, tenderness, or enlargement , neck supple, no masses or palpable cervical nodes, trachea midline, thyroid without nodules, masses, tenderness, or enlargement CHEST: no chest wall deform ity, no chest wall tenderness , no chest wall deformity, no chest wall tenderness LUNGS: normal respiratory e ffort and clear to auscultation, no wheezes, rales, or rhonchi, good air exchange , normal respiratory effort and clear to auscultation, no wheezes, rales, or rhonchi, good air exchange CARDIO: regular rate and rhy thm, normal S1 and S2, nor murmur, rub, or gallop , regular rate and rhythm, normal S1 and S2, nor murmur, rub, or gallop PULSES: normal capillary ref ill , normal capillary refill ABDOMEN: soft, non-distended, non-tender, no masses , soft, non-distended, non- tender, no masses RECTAL: MUSCULOSKELETAL: no deformity or scol iosis noted, normal range of motion, joints normal, no erythema, edema, effusion, or ecchymosis , no deformity or scoliosis noted, normal range of motion, joints normal, no erythema, edema, effusion, or ecchymosis EXTREMITY: no clubbing, cyanosi s, edema, or deformity with normal ROM in both upper and lower bilateral extremities , no clubbing, cyanosis, edema, or deformity with normal ROM in both upper and lower bilateral extremities NEUROLOGIC: grossly normal , miguel ssly normal SKIN: no rashes, ulceratio ns, or suspicious lesions , no rashes, ulcerations, or suspicious lesions LYMPH NODES: no cervical adenopat hy, nodes normal , no cervical adenopathy, nodes normal MENTAL STATUS: alert and oriented x 3, normal mood and affect , alert and oriented x3, normal mood and affect
--- OUTSIDE RECORDS SUMMARY | 2024-12-14 09:45 | XMS_ITS | Patient Health Record ---
Author Organization [facility] Address [address] [place] [address] Care Team Providers Care Steam Drier Tender Name Role Phone Nahid Lantigua Primary Care Provider Reason For Referral No Information Plan Of Treatment No Information
--- OUTSIDE RECORDS SUMMARY | 2024-12-14 09:46 | XMS_ITS | CCD ---
Author Organization [facility] Care Team Providers Care Test Deck Supervisor Name Role Phone YU, DANA Referring Unavailable NIDA LANDA Referring Unavailabl e KULAKODCKINIDA Referring Unavailabl e KULAKODCKI, NIDA Thomson Referring Unavailabl e YU, DANA Referring Unavailable SANRAO ERNANDEZ Referring Unavailable NIDA LANDA Referring Unavailabl e DERISO, ERIN Referring Unavailable TACO SPENCE Attending Unavailable CAROLAESSENCE Suarez Attending Unavailable KEENE, MIKAEL Referring Unavailable KEENE, MIKAEL Referring Unavailable MERRILL HERNÁNDEZ Referring Unavailable HORANI, HERNAN Admitting Unavailable YU, DANA Attending Unavailable KEENE, MIKAEL Admitting Unavailable KEENE, MIKAEL Attending Unavailable Allergies Allergy Classification Reported Allergen(s) Allergy Type Date of Onset Reaction(s) Facility (1 source) Penicillins; Translations: [PENICILLINS] Propensity to adverse reactions to drug (disorder) [facility] Repository Problems Active Problems Problem Classification Problem Date Documented Date Episodic/Chronic Acute myocardial infarction (2 sources) Non-ST elevation (NSTEMI) myocardial infarction; Translations: [Non-ST elevation (NSTEMI) myocardial infarction] Onset: 10-03-2024 Chronic Congestive heart failure; nonhypertensive (4 sources) Unspecified systolic (congestive) heart failure; Translations: [Congestive heart failure] Onset: 10-11-2024 Chronic Coronary atherosclerosis and other heart disease (8 sources) Atherosclerotic heart disease of [place] coronary artery with unstable angina pectoris; Translations: [Atherosclerotic heart disease of [place] coronary artery without angina pectoris] Onset: 10-03-2024 Chronic Coronary atherosclerosis and other heart disease (2 sources) Presence of coronary angioplasty implant and graft; Translations: [Presence of coronary angioplasty implant and graft] Onset: 11-20-2024 Episodic Disorders of lipid metabolism (4 sources) Mixed hyperlipidemia; Translations: [Hyperlipidemia] Onset: 10-11-2024 Chronic Essential hypertension (4 sources) Essential (primary) hypertension; Translations: [Hypertensive disorder] Onset: 10-11-2024 Chronic Malaise and fatigue (2 sources) Fatigue; Translations: [Fatigue] Onset: 10-11-2024 Episodic Other nutritional; endocrine; and metabolic disorders (2 sources) Morbid (severe) obesity due to excess calories; Translations: [Morbid (severe) obesity due to excess calories] Onset: 10-28-2024 Chronic Other nutritional; endocrine; and metabolic disorders (2 sources) Body mass index (BMI) 39.0-39.9, adult; Translations: [Body mass index (BMI) 39.0-39.9, adult] Onset: 10-28-2024 Chronic Other screening for suspected conditions (not mental disorders or infectious disease) (2 sources) Abnormal findings on diagnostic imaging of heart and coronary circulation; Translations: [Abnormal findings on diagnostic imaging of heart and coronary circulation] Onset: 10-04-2024 Episodic Residual codes; unclassified (2 sources) Hypersomnia, unspecified; Translations: [Hypersomnia, unspecified] Onset: 10-02-2024 Chronic Substance-related disorders (2 sources) Nicotine dependence, unspecified, uncomplicated; Translations: [Nicotine dependence, unspecified, uncomplicated] Onset: 10-28-2024 Chronic Unclassified (1 source) Obesity, class 2; Translations: [Obesity, class 2] Onset: 10-28-2024 Past or Other Problems Problem Classification Problem Date Documented Da te Episodic/Chronic Unclassified (1 source) Obesity, class 2; Translations: [Obesity, class 2] Onset: 11-20-2024 Results Test Name Value Interpretation Reference Range Facility 36on 12-11-2024 [address] waldron will address then [facility] Telemedicine 12-02-2024 Telemedicine [id number] Magaly Yung 1975 M Date Provider Department Center 12/02/2024 Clifford-TACO SPENCE [place] [facility] Family History Problem Relation Age of Onset Coronary artery disease Mother 45 Coronary artery disease Brother 42 Family Status - Relation Status Age at Mother Father Alive Brother Level of 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 Reason for Visit and Comments: Cardiology Pharmacist - Lipid Management [Other] [facility] 29on 11-20-2024 29 Addended by: MIKAEL KEENE on: 11/20/2024 02:08 PM Modules accepted: Orders [facility] Documentationon 11-20-2024 Documentation [id number] Magaly Yung 1975 M Date Provider Department Center 11/20/2024 289-MIKAEL KEENE HVC CARD [place] [facility] Family History Problem Relation Age of Onset Coronary artery disease Mother 45 Coronary artery disease Brother 42 Family Status - Relation Status Age at Mother Father Alive Brother Reason for Visit and Comments: Coronary Artery Disease [187] [facility] Documentation [id number] Magaly Yung 1975 M Date Provider Department Center 11/20/[id number], KARA HVCANTICOAG [place] [facility] Family History Problem Relation Age of Onset Coronary artery disease Mother 45 Coronary artery disease Brother 42 Family Status - Relation Status Age at Mother Father Alive Brother Reason for Visit and Comments: Cardiology Pharmacist - Referral [Other] [facility] HPon 11-20-2024 HP H&P reviewed. The patient was examined and there are no changes to the H&P. Discussed risks, benefits, and alternative therapies with the patient, he understands and willing to proceed with coronary angiogram and possible PCI. Troy Mendez MD PGY-7 Interventional Restaurant Service Manager [facility] NURSNOTEon 11-20-2024 NURSNOTE RN educated pt on d/ c instructions. This included: site care, limited physical activity, resume normal diet, future appointments, medications, and moderate sedation instructions. RN educated pt on when to notify physician and when to go to the hospital. RN provided pt with arm sling and educated pt on importance of not using arm for 24 hours for radial sites. RN encouraged pt to voice any questions or concerns, and answered any questions or concerns if pt verbalized. Pt was wheeled off of unit with all of belongings. Normal [facility] Orders Onlyon 11-13-2024 Orders Only [id number] Magaly Yung 1975 M Date Provider Department Center 11/13/2024 TOM [facility] [place] [facility] Family History Problem Relation Age of Onset Coronary artery disease Mother 45 Coronary artery disease Brother 42 Family Status - Relation Status Age at Mother Father Alive Brother [facility] Abstracton 11-01-2024 Abstract [id number] Magaly Yung 1975 M Date Provider Department Center 11/01/2024 MIKAEL [facility] [facility] AUTH [place] [facility] Family History Problem Relation Age of Onset Coronary artery disease Mother 45 Coronary artery disease Brother 42 Family Status - Relation Status Age at Mother Father Alive Brother [facility] Documentationon 10-28-2024 Documentation [id number] Magaly Yung 1975 M Date Provider Department Center 10/28/2024 MIKAEL [facility] CARD [place] [facility] Family History Problem Relation Age of Onset Coronary artery disease Mother 45 Coronary artery disease Brother 42 Family Status - Relation Status Age at Mother Father Alive Brother Reason for Visit and Comments: Congestive Heart Failure [127] Coronary Artery Disease [187] [facility] HPon 10-28-2024 Cardiology I had heart team discussion with Dr. Valle from CT surgery. We personally reviewed the coronary angiogram together. Patient has ostial LAD 80% stenosis. His distal and apical LAD also have significant disease and Dr. Valle was concerned that it is a poor target for ROWELL to LAD bypass grafting. He has mid RCA intermediate stenosis and he has circumflex mild to moderate stenosis We elected to proceed with PCI LAD with possible PCI RCA as well I will order coronary angiogram and PCI LAD Right radial access: Patient is optimized on medical therapy for CAD and HFrEF Labs reviewed Diagnosis Plan 1. Primary hypertension Case Request Director Of Rehabilitation: Coronary angiography, Percutaneous coronary intervention 2. Multi-vessel coronary artery stenosis Case Request Director Of Rehabilitation: Coronary angiography, Percutaneous coronary intervention 3. HFrEF (heart failure with reduced ejection fraction) ([facility]) Case Request Director Of Rehabilitation: Coronary angiography, Percutaneous coronary intervention 4. Coronary artery disease of [place] artery of [place] heart with stable angina pectoris 5. Tobacco use disorder Case Request Director Of Rehabilitation: Coronary angiography, Percutaneous coronary intervention 6. Mixed hyperlipidemia Case Request Director Of Rehabilitation: Coronary angiography, Percutaneous coronary intervention 7. Class 2 severe obesity due to excess calories with serious comorbidity and body mass index (BMI) of 39.0 to 39.9 in adult ([facility]) Case Request Director Of Rehabilitation: Coronary angiography, Percutaneous coronary intervention 8. Coronary artery disease involving [place] coronary artery of [place] heart with unstable angina pectoris ([facility]) Case Request Director Of Rehabilitation: Coronary angiography, Percutaneous coronary intervention Lab on 10/17/2024 Component Date Value Ref Range Status Color, Urine 10/17/2024 Yellow Yellow, Light Yellow, Colorless Final Clarity, Urine 10/17/2024 Clear Clear Final pH, Urine 10/17/2024 6.0 5.0 - 8.0 pH Final Leukocytes, Urine 10/17/2024 Negative Negative Final Nitrite, Urine 10/17/2024 Negative Negative Final Protein, Urine 10/17/2024 Negative Negative mg/dL Final Glucose, Urine 10/17/2024 >=1000 (A) Normal mg/dL Final Bilirubin, Urine 10/17/2024 Negative Negative Final Specific [place], Urine 10/17/2024 1.015 1.010 - 1.030 Final Ketones, Urine 10/17/2024 Negative Negative mg/dL Final Blood, Urine 10/17/2024 Negative Negative Final Urobilinogen, Urine 10/17/2024 Normal Normal mg/dL Final ABO Grouping 10/17/2024 AB Final Rh Type 10/17/2024 POS Final Ab Scrn 10/17/2024 NEG Final Sodium 10/17/2024 138 136 - 145 mmol/L Final Potassium 10/17/2024 4.4 3.5 - 5.1 mmol/L Final Chloride 10/17/2024 103 98 - 107 mmol/L Final CO2 10/17/2024 29 21 - 31 mmol/L Final Anion Gap 10/17/2024 10 7 - 20 mmol/L Final BUN 10/17/2024 19 7 - 25 mg/dL Final Creatinine 10/17/2024 1.34 (H) 0.70 - 1.30 mg/dL Final BUN/Creatinine Ratio 10/17/2024 14.2 Final Glucose 10/17/2024 159 (H) 70 - 100 mg/dL Final Calcium 10/17/2024 9.6 8.6 - 10.3 mg/dL Final AST 10/17/2024 16 13 - 39 U/L Final ALT (SGPT) 10/17/2024 28 7 - 52 U/L Final Alkaline Phosphatase 10/17/2024 93 34 - 104 U/L Final Total Protein 10/17/2024 7.0 6.0 - 8.3 g/dL Final Albumin 10/17/2024 4.1 3.5 - 5.7 g/dL Final Total Bilirubin 10/17/2024 0.4 0.3 - 1.0 mg/dL Final eGFR 10/17/2024 65.8 >60.0 mL/min/1.73m*2 Final [facility]???s estimated glomerular filtration rate (eGFR) will no longer include consideration of race in its calculation. The National Kidney Foundation???s eGFR Task Force developed new recommendations for the estimation of the glomerular filtration rate in the [place] They recommend immediate implementation of the new equation refit without the race variable in all laboratories because the calculation does not include race. In addition to not including race in the calculation and reporting, it included diversity in its development, and has acceptable performance characteristics and potential consequences that do not disproportionately affect any one group of individuals. aPTT 10/17/2024 31.0 25.0 - 35.0 Seconds Final Clinical significance of the APTT is questionable in the presence of heparin. Protime 10/17/2024 14.3 12.3 - 14.8 Seconds Final INR 10/17/2024 1.11 (H) 0.90 - 1.10 Final [facility] RECOMMENDED INR FOR WARFARIN THERAPY CONDITION INR PROPHYLAXIS OF VENOUS THROMBOSIS 2-3 (HIGH-RISK SURGERY) TREATMENT OF VENOUS THROMBOSIS 2-3 TREATMENT OF PULMONARY EMBOLISM 2-3 PREVENTION OF SYSTEMIC EMBOLISM: 2-3 ACUTE MYOCARDIAL INFARCTION TISSUE HEART VALVES VALVULAR HEART DISEASE ATRIAL FIBRILLATION RECURRENT SYSTEMIC EMBOLISM MECHANICAL HEART VALVE 2.5-3.5 --- FROM: ORAL ANTICOAGULANTS. MECHANISM OF ACTION, CLINICAL EFFECTIVENESS, AND OPTIMAL THERAPEUTIC RANGE. CHEST 1995;108:231S-246 (more content not included)... Normal [facility] 36on 10-24-2024 36 Called and discussed with patient cardiac catherization reviewed by Dr. Arnav Valle and Dr. Mikael Keene and plan was decided to proceed with PCI instead of open heart surgery. Heart Surgery cancelled for Monday10/28/2024. Patient agreeable to plan of care and all questions and concerns answered appropriately. Normal [facility] Telephoneon 10-24-2024 Telephone [id number] Magaly Yung 1975 M Date Provider Department Center 10/24/2024 NIDA MARTINEZ JCChaim Surgery None Family History Problem Relation Age of Onset Coronary artery disease Mother 45 Coronary artery disease Brother 42 Family Status - Relation Status Age at Mother Father Alive Brother Normal [facility] Abstracton 10-22-2024 Abstract [id number] Magaly Yung 1975 M Date Provider Department Center 10/22/2024 [facility] [place] [facility] History Problem Relation Age of Onset Coronary artery disease Mother 45 Coronary artery disease Brother 42 Family Status - Relation Status Age at Mother Father Alive Brother Normal [facility] APTTon 10-17-2024 ACTIVATED PARTIAL THROMBOPLASTIN TIME IN PPP BY COAGULATION ASSAY 31.0 Seconds Normal 25.0-35.0 [facility] Comment on above: Result Comment: Clin ical significance of the APTT is questionable in the presence of heparin. Performed By: #### L [id number] ####[facility] (BEAKER)[address] [place] [address] CBC WITH AUTO DIFFERENTIALon 10-17-2024 Basophils (Bld) [#/Vol] 0.12 10*3/uL Normal 0.00-0.20 [facility] Comment on above: Performed By: #### L [id number] ####[facility] (BEAKER)[address] [place] [address] Basophils/100 WBC (Bld) 1.0 % Normal 0.0-1.0 [facility] Comment on above: Performed By: #### L [id number] ####[facility] (BEAKER)[address] [place] [address] Eosinophils (Bld) [#/Vol] 0.35 10*3/uL Normal 0.00-0.50 [facility] Comment on above: Performed By: #### L [id number] ####[facility] [place] [address] Eosinophils/100 WBC (Bld) 3.0 % Normal 0.0-6.0 [facility] Comment on above: Performed By: #### L [id number] ####[facility] [place] [address] Erythrocyte distribution width (RBC) [Ratio] 13.2 % Normal 11.5-15.0 [facility] Comment on above: Performed By: #### L [id number] ####[facility] [place] [address] ERYTHROCYTE MEAN CORPUSCULAR HEMOGLOBIN CONCENTRATION (G/DL) BY AUTOMATED 32.2 g/dL Normal 32.0-35.0 [facility] Comment on above: Performed By: #### L [id number] ####[facility] (BEAKER)[address] [place] [address] Hematocrit (Bld) [Volume fraction] 48.7 % Normal 39.0-50.0 [facility] Comment on above: Performed By: #### L [id number] ####[facility] (BE[facility]ER)[address] [place] [address] Hemoglobin (Bld) [Mass/Vol] 15.7 g/dL Normal 13.0-17.0 [facility] Comment on above: Performed By: #### L [id number] ####[facility] (BEAKER)[address] [place] [address] Immature granulocytes (Bld) [#/Vol] 0.04 10*3/uL Normal 0.00-0.20 [facility] Comment on above: Performed By: #### L [id number] ####[facility] (BEAKER)[address] [place] [address] Immature granulocytes/100 WBC (Bld) 0.3 % Normal 0.0-1.0 [facility] Comment on above: Performed By: #### L [id number] ####[facility] (BEAKER)[address] [place] [address] Lymphocytes (Bld) [#/Vol] 2.14 10*3/uL Normal 1.20-4.00 [facility] Comment on above: Performed By: #### L [id number] ####[facility] (BEAKER)[address] [place] [address] Lymphocytes/100 WBC (Bld) 18.4 % Low 20.0-45.0 [facility] Comment on above: Performed By: #### L [id number] ####[facility] (BEAKER)[address] [place] [address] MCH (RBC) [Entitic mass] 28.1 pg Normal 27.0-33.0 [facility] Comment on above: Performed By: #### L [id number] ####[facility] (BEAKER)[address] [place] [address] MCV (RBC) [Entitic vol] 87.1 fL Normal 82.0-98.0 [facility] Comment on above: Performed By: #### L [id number] ####[facility] (BEAKER)[address] [place] [address] Monocytes (Bld) [#/Vol] 1.11 10*3/uL High 0.10-1.00 [facility] Comment on above: Performed By: #### L [id number] ####[facility] (BEAKER)[address] [place] [address] Monocytes/100 WBC (Bld) 9.5 % Normal 5.0-12.0 [facility] Comment on above: Performed By: #### L [id number] ####[facility] (BEAKER)[address] [place] [address] Neutrophils (Bld) [#/Vol] 7.90 10*3/uL High 1.60-7.60 [facility] Comment on above: Performed By: #### L [id number] ####[facility] (BEAKER)[address] [place] [address] Neutrophils/100 WBC (Bld) 67.8 % Normal 40.0-72.0 [facility] Comment on above: Performed By: #### L [id number] ####[facility] (BEAKER)[address] [place] [address] NRBC (PER 100 WBCS) BY AUTOMATED COUNT 0.0 % Normal 0 [facility] Comment on above: Performed By: #### L [id number] ####[facility] (BEAKER)[address] [place] [address] PLATELETS (10*3/UL) IN BLOOD AUTOMATED COUNT 236 10*3/uL Normal 150-400 [facility] Comment on above: Performed By: #### L [id number] ####[facility] (BEAKER)[address] [place] [address] RBC (Bld) [#/Vol] 5.59 10*6/uL Normal 4.20-5.70 [facility] Comment on above: Performed By: #### L [id number] ####[facility] (BEAKER)[address] [place] [address] WBC (Bld) [#/Vol] 11.66 10*3/uL High 4.00-10.60 [facility] Comment on above: Performed By: #### L [id number] ####[facility] (BEAKER)[address] [place] [address] COMPREHENSIVE METABOLIC PANE Davi 10-17-2024 Albumin [Mass/Vol] 4.1 g/dL Normal 3.5-5.7 [facility] Comment on above: Performed By: #### L [id number] ####[facility] ([facility])[address] [place] [address] ALP [Catalytic activity/Vol] 93 U/L Normal 34-104 [facility] Comment on above: Performed By: #### L [id number] ####[facility] ([facility])[address] [place] [address] ALT [Catalytic activity/Vol] 28 U/L Normal 7-52 [facility] Comment on above: Performed By: #### L [id number] ####[facility] ([facility])[address] [place] [address] Anion gap [Moles/Vol] 10 mmol/L Normal 7-20 [facility] Comment on above: Performed By: #### L [id number] ####[facility] ([facility])[address] [place] [address] AST [Catalytic activity/Vol] 16 U/L Normal 13-39 [facility] Comment on above: Performed By: #### L [id number] ####[facility] ([facility])[address] [place] [address] Bilirubin [Mass/Vol] 0.4 mg/dL Normal 0.3-1.0 [facility] Comment on above: Performed By: #### L [id number] ####[facility] ([facility])[address] [place] [address] Calcium [Mass/Vol] 9.6 mg/dL Normal 8.6-10.3 [facility] Comment on above: Performed By: #### L [id number] ####[facility] ([facility])[address] [place] [address] Chloride [Moles/Vol] 103 mmol/L Normal 98-107 [facility] Comment on above: Performed By: #### L [id number] ####[facility] (BEAKER)[address] [place] [address] CO2 [Moles/Vol] 29 mmol/L Normal 21-31 [facility] Comment on above: Performed By: #### L [id number] ####[facility] ([facility])[address] [place] [address] Creatinine [Mass/Vol] 1.34 mg/dL High 0.70-1.30 [facility] Comment on above: Performed By: #### L [id number] ####[facility] ([facility])[address] [place] [address] GLOMERULAR FILTRATION RATE ML/MIN/1.73 SQ M.PREDICTED 65.8 mL/min/1.73m*2 Normal >60.0 [facility] Comment on above: Result Comment: The [facility]???s estimated glomerular filtration rate (eGFR) will no longer include consideration of race in its calculation. The National Kidney Foundation???s eGFR Task Force developed new recommendations for the estimation of the glomerular filtration rate in the [place] They recommend immediate implementation of the new equation refit without the race variable in all laboratories because the calculation does not include race. In addition to not including race in the calculation and reporting, it included diversity in its development, and has acceptable performance characteristics and potential consequences that do not disproportionately affect any one group of individuals. Performed By: #### L [id number] ####[facility] ([facility])[address] [place] [address] Glucose [Mass/Vol] 159 mg/dL High 70-100 [facility] Comment on above: Performed By: #### L [id number] ####[facility] ([facility])[address] [place] [address] Potassium [Moles/Vol] 4.4 mmol/L Normal 3.5-5.1 [facility] Comment on above: Performed By: #### L [id number] ####[facility] ([facility])[address] [place] [address] Protein [Mass/Vol] 7.0 g/dL Normal 6.0-8.3 [facility] Comment on above: Performed By: #### L [id number] ####[facility] (BEAKER)[address] [place] [address] Sodium [Moles/Vol] 138 mmol/L Normal 136-145 [facility] Comment on above: Performed By: #### L [id number] ####[facility] (BEAKER)[address] [place] [address] Urea nitrogen [Mass/Vol] 19 mg/dL Normal 7-25 [facility] Comment on above: Performed By: #### L [id number] ####[facility] (BEAKER)[address] [place] [address] UREA NITROGEN/CREATININE (MASS RATIO) IN SER/PLAS 14.2 Normal [facility] Comment on above: Performed By: #### L [id number] ####[facility] (BEAKER)[address] [place] [address] Labon 10-17-2024 Lab [id number] Magaly Yung 1975 M Date Provider Department [place] 10/17/2024 2245-[facility] OPD LAB RESOURCE [facility] OPD [facility] Family History Problem Relation Age of Onset Coronary artery disease Mother 45 Coronary artery disease Brother 42 Family Status - Relation Status Age at Mother Father Alive Brother Normal [facility] PROTIME-INRon 10-17-2024 INR IN PPP BY COAGULATION ASSAY 1.11 High 0.90-1.10 [facility] Comment on above: Result Comment: [facility] P RECOMMENDED INR FOR WARFARIN THERAPY CONDITION INR PROPHYLAXIS OF VENOUS THROMBOSIS 2-3 (HIGH-RISK SURGERY) TREATMENT OF VENOUS THROMBOSIS 2-3 TREATMENT OF PULMONARY EMBOLISM 2-3 PREVENTION OF SYSTEMIC EMBOLISM: 2-3 ACUTE MYOCARDIAL INFARCTION TISSUE HEART VALVES VALVULAR HEART DISEASE ATRIAL FIBRILLATION RECURRENT SYSTEMIC EMBOLISM MECHANICAL HEART VALVE 2.5-3.5 FROM: ORAL ANTICOAGULANTS. MECHANISM OF ACTION, CLINICAL EFFECTIVENESS, AND OPTIMAL THERAPEUTIC RANGE. CHEST 1995;108:231S-246S. Performed By: #### L [id number] #### [facility] ([facility]) [address] [place] [address] PROTHROMBIN TIME (PT) IN PPP BY COAGULATION ASSAY 14.3 Seconds Normal 12.3-14.8 [facility] Comment on above: Performed By: #### L [id number] #### [facility] ([facility]) [address] [place] [address] TYPE AND SCREENon 10-17-2024 AB SCREEN Negative Normal [facility] Comment on above: Performed By: #### L [id number] #### [facility] B[facility]OD [facility] , ABO group Nom (Bld) AB Normal [facility] Comment on above: Performed By: #### L [id number] #### [facility] BLOOD BANK , RH TYPE IN BLOOD Positive Normal [facility] Comment on above: Performed By: #### L [id number] #### [facility] BLOOD B[facility] , URINALYSISon 10-17-2024 BILIRUBIN, TOTAL PRESENCE IN URINE Negative Normal Negative [facility] Comment on above: Order Comment: Micro scopics not performed on urines with negative chemical reactions unless requested on original order. Performed By: #### L [id number] ####[facility] (BE[facility]terocor)[address] [place] [address] Clarity (U) Clear Normal Clear [facility] Comment on above: Order Comment: Micro scopics not performed on urines with negative chemical reactions unless requested on original order. Performed By: #### L [id number] ####[facility] (BEAKER)[address] [place] [address] Color (U) Yellow Normal Yellow, Light Yellow, Colorless [facility] Comment on above: Order Comment: Micro scopics not performed on urines with negative chemical reactions unless requested on original order. Performed By: #### L [id number] ####[facility] ([facility])[address] [facility] [place] [address] Glucose (U) [Mass/Vol] mg/dL Abnormal Normal [facility] Comment on above: Order Comment: Micro scopics not performed on urines with negative chemical reactions unless requested on original order. Performed By: #### L [id number] ####[facility] ([facility])[address] [facility] [place] [address] HEMOGLOBIN PRESENCE IN URINE Negative Normal Negative [facility] Comment on above: Order Comment: Micro scopics not performed on urines with negative chemical reactions unless requested on original order. Performed By: #### L [id number] ####[facility] ([facility])[address] [facility] [place] [address] Ketones Ql (U) Negative Normal Negative [facility] Comment on above: Order Comment: Micro scopics not performed on urines with negative chemical reactions unless requested on original order. Performed By: #### L [id number] ####[facility] ([facility])[address] [place] [address] LEUKOCYTE ESTERASE PRESENCE IN URINE BY TEST STRIP Negative Normal Negative [facility] Comment on above: Order Comment: Micro scopics not performed on urines with negative chemical reactions unless requested on original order. Performed By: #### L [id number] ####[facility] ([facility])[address] [place] [address] NITRITE PRESENCE IN URINE Negative Normal Negative [facility] Comment on above: Order Comment: Micro scopics not performed on urines with negative chemical reactions unless requested on original order. Performed By: #### L [id number] ####[facility] ([facility] [facility] [place] [address] pH (U) 6.0 [pH] Normal 5.0-8.0 [facility] Comment on above: Order Comment: Micro scopics not performed on urines with negative chemical reactions unless requested on original order. Performed By: #### L [id number] ####[facility] ([facility])[address] [place] [address] Protein (U) [Mass/Vol] Negative Normal Negative [facility] Comment on above: Order Comment: Micro scopics not performed on urines with negative chemical reactions unless requested on original order. Performed By: #### L [id number] ####[facility] ([facility])[address] [place] [address] Specific gravity (U) [Rel density] 1.015 Normal 1.010-1.030 [facility] Comment on above: Order Comment: Micro scopics not performed on urines with negative chemical reactions unless requested on original order. Performed By: #### L [id number] ####[facility] ([facility])[address] [place] [address] UROBILINOGEN (MG/DL) IN URINE Normal Normal Normal [facility] Comment on above: Order Comment: Micro scopics not performed on urines with negative chemical reactions unless requested on original order. Performed By: #### L [id number] ####[facility] ([facility])[address] [place] [address] Documentationon 10-16-2024 Documentation [id number] Magaly Yung 1975 M Date Provider Department Center 10/16/[id number] PAZ [facility] HeartVAS Family History Problem Relation Age of Onset Coronary artery disease Mother 45 Coronary artery disease Brother 42 Family Status - Relation Status Age at Mother Father Alive Brother Reason for Visit and Comments: HF Inpatient satisfaction survey sent. [Other] Normal [facility] Abstracton 10-15-2024 Abstract [id number] Magaly Yung 1975 M Date Provider Department Center 10/15/2024 [id number] HESS [facility] AUTH [place] Medical [facility] Family History Problem Relation Age of Onset Coronary artery disease Mother 45 Coronary artery disease Brother 42 Family Status - Relation Status Age at Mother Father Alive Brother Normal [facility] Abstract [id number] Magaly Yung 1975 M Date Provider Department Center 10/15/2024 2020-GUSTABO CARO [facility] HeartVAS Family History Problem Relation Age of Onset Coronary artery disease Mother 45 Coronary artery disease Brother 42 Family Status - Relation Status Age at Mother Father Alive Brother [facility] Follow-Upon 10-11-2024 Follow-Up [id number] Magaly Yung 1975 M Date Provider Department Center 10/11/2024 [id number] WALDRON [facility] Family History Problem Relation Age of Onset Coronary artery disease Mother 45 Coronary artery disease Brother 42 Family Status - Relation Status Age at Mother Father Alive Brother Level of Service:10819 CO OFFICE/OUTPATIENT ESTABLISHED LOW MDM 20 MIN Reason for Visit and Comments: Coronary Artery Disease [187] - Scheduled for CABG on 10/21/2024 at [facility] Congestive Heart Failure [127] - Denies SOB and LE edema. Hyperlipidemia [182] - He's getting back pain s/p starting atorvastatin. Hypertension [419141] Fatigue [46] [facility] 36on 10-07-2024 36 Phoned patient for Hospital Follow up & pre-op instruction Instructed patient to come to [facility] the week of October 14 for pre-op labs Surgical Date: 10/21/2024 Arrival Time: 0530 surgery scheduled at 0730 CHG wipes as instructed. Nothing to eat or drink after midnight prior to surgery. Medications to be taken/held the day of surgery: Last dose of Dapagliflozin Propanediol (Farxiga) and Lisinopril 2024. Only medication to be taken the day of surgery Carvedilol. Check in at registration desk lobby of [facility] then check in on second floor at surgical waiting room desk. Patient denies chest pain and shortness of breath. Patien requesting to move surgery date up as he is currently off work. I told patient I would relay his request to Dr. Hess. [facility] 36 Discharge date: 10/04 Call date: 10/07/24 Spoke with: patient HF Follow-up date: 10/11/24 Med reconciliation completed: pt declined Questions/Concerns: Pt stated he is doing okay and denied any SOB or CP. Pt declined to review his home meds. Pt stated he is monitoring his BP 4 times a day as well as his daily weight. Pt is aware of his follow up appt and has transportation to this appt. Pt was wondering if it is possible to have his surgery moved up. Mold Filling Operator will notify the CT Surgery RN of the patient's question. Pt denied any additional questions or concerns at this time. Normal [facility] Telephoneon 10-07-2024 Telephone [id number] Magaly Yung 1975 M Date Provider Department [place] 10/07/2024 JARED [facility] [place] Heart[facility]AS No family history on file Reason for Visit and Comments: HF post discharge call. [Other] Normal [facility] 36on 10-05-2024 36 Post Discharge Call Good morning, I am Gisela Houser RN a lead nurse from [facility]. I am calling you to follow up on your stay with us and make sure all of your questions have been answered. You will be receiving a survey either electronic or via mail and we always aim to receive 9???s and 10???s. If there is any reason you feel as though you cannot give us these scores please indicate that now. 1. How have you been feeling since being discharged from the hospital? I have been feeling fine 2. Did you understand your discharge instructions when they were given to prior to leaving? Yes Were you given an opportunity to ask questions? Yes Mirian did a great job explaining my dc 3. While a patient in the hospital, was your call light answered in a timely manner? Yes for the most part 4. Do have access to all medications that were prescribed to you at discharge? Yes 5. How would you rate your overall stay on a scale of 0-10, 10 being the best experience you have ever had. 7 I asked what we could do better for his next stay. He did not want to elaborate but stated it had to do with nursing but that he got it squared away 6. Do you have any further questions you would like to discuss? No Patient Name Magaly Yung Date 10/05/24 [facility] Telephoneon 10-05-2024 Telephone [id number] Magaly Yung [place] 1975 M Provider Department [place] 10/05/2024 GISELA MARQUEZ [facility] Medical C Family History Problem Relation Age of Onset Coronary artery disease Mother 45 Coronary artery disease Brother 42 Family Status - Relation Status Age at Mother Father Alive Brother Reason for Visit and Comments: Hospital Follow-up [832] Normal [facility] 30on 10-04-2024 30 The patient is Moderately Stable - Low risk of patient condition declining or worsening The patient's goals for the shift include comfort,rest The clinical goals for the shift include stable vitals, comfort Over the shift, the patient did not make progress toward the following goals. Barriers to progression include na. Recommendations to address these barriers include na. Normal [facility] 30 The patient is Moderately Stable - Low risk of patient condition declining or worsening The patient's goals for the shift include comfort,rest The clinical goals for the shift include stable vitals, comfort Problem: Pain - Adult Goal: Verbalizes/displays adequate comfort level or baseline comfort level Outcome: Progressing Problem: Safety - Adult Goal: Free from fall injury Outcome: Progressing Problem: Chronic Conditions and Co-morbidities Goal: Patient's chronic conditions and co-morbidity symptoms are monitored and maintained or improved Outcome: Progressing Normal [facility] ANTI-XA (HEPARIN LEVEL)on HEPARIN UNFRACTIONATED (U/ML) IN PPP BY CHROMOGENIC METHOD 0.38 IU/mL Normal 0.3-0.7 [facility] Comment on above: Result Comment: [place] roxaban and Apixaban will interfere with the anti Xa assay used to monitor UFH and LMWH. Performed By: #### L [id number] ####[facility] HOSPITAL LAB (BEAKER)[address] [place] [address] CONSULTon 10-04-2024 CONSULT discharge planning: to Home Patient came to this admission from their private residence in the community, where they live with their spouse and family. - no OT or PT orders in place at this time - LDAs tab not listing any open wounds or closed skin issues at this time - follow up with [facility] on AVS - follow up with [facility] on AVS Normal [facility] 30on 10-03-2024 30 Daily Case Managemen t Update Multidisciplinary rounds have been completed. Barriers to Discharge: Pending clinical course and improvement in clinical condition. Management of chest pain, coronary artery disease: S/p Heart cath. CT surgery starting pre-op workup process. HFrEF: IV diuresis. Current Discharge plan is to return home when medically ready. Diet: Dietary Orders (From admission, onward) Start Ordered 10/02/24 1817 Special Kitchen Request Once Comments: Please send meat loaf, green beans, and sprite 10/02/24 1816 10/02/24 0243 Regular Diet Heart Healthy/HTN, CABG,Stroke, (2gNA, low fat, low cholesterol) Diet effective now Question Answer Comment Room Service? Yes Fat restriction: Heart Healthy/HTN, CABG,Stroke, (2gNA, low fat, low cholesterol) 10/02/24 0245 Physician Expected Discharge Date: 10/06/2024 Discharge Delays: PT Six Click Score: OT Six Click Score: PT Recommendations: OT Recommendations: New Consults: Ancillary Consults (From admission, onward) Start Ordered 10/02/24 1613 Inpatient Consult to Pulmonary Navigator Once Provider: (Not yet assigned) Question: Reason for consult Answer: Snoring/Possible DANIEL Comment: in need of sleep study outpatient 10/02/24 1612 10/02/24 0244 Inpatient consult to Social Work Once Provider: (Not yet assigned) Question Answer Comment Select all services needed for the patient Other Other: Heart Failure 10/02/24 0245 [facility] 30 The patient is Moderately Stable - Low risk of patient condition declining or worsening The patient's goals for the shift include comfort, rest The clinical goals for the shift include stable vitals, comfort Over the shift, the patient did not make progress toward the following goals. Barriers to progression include. Recommendations to address these barriers include. Normal [facility] 30 The patient is Moderately Stable - Low risk of patient condition declining or worsening The patient's goals for the shift include comfort, rest The clinical goals for the shift include stable vitals, comfort Problem: Pain - Adult Goal: Verbalizes/displays adequate comfort level or baseline comfort level Outcome: Progressing Problem: Safety - Adult Goal: Free from fall injury Outcome: Progressing Problem: Chronic Conditions and Co-morbidities Goal: Patient's chronic conditions and co-morbidity symptoms are monitored and maintained or improved Outcome: Progressing [facility] ANTI-XA (HEPARIN LEVEL)on HEPARIN UNFRACTIONATED (U/ML) IN PPP BY CHROMOGENIC METHOD 0.37 IU/mL Normal 0.3-0.7 [facility] Comment on above: Result Comment: [place] roxaban and Apixaban will interfere with the anti Xa assay used to monitor UFH and LMWH. Performed By: #### L [id number] #### [facility] ([facility]) [address] [place] [address] HEPARIN UNFRACTIONATED (U/ML) IN PPP BY CHROMOGENIC METHOD 0.32 IU/mL Normal 0.3-0.7 [facility] Comment on above: Result Comment: Meg roxaban and Apixaban will interfere with the anti Xa assay used to monitor UFH and LMWH. Performed By: #### L [id number] ####[facility] ([facility])[address] [place] [address] HEPARIN UNFRACTIONATED (U/ML) IN PPP BY CHROMOGENIC METHOD 0.34 IU/mL Normal 0.3-0.7 [facility] Comment on above: Result Comment: [place] roxaban and Apixaban will interfere with the anti Xa assay used to monitor UFH and LMWH. Performed By: #### L [id number] ####[facility] ([facility])[address] [place] [address] HEPARIN UNFRACTIONATED (U/ML) IN PPP BY CHROMOGENIC METHOD 0.22 IU/mL Low 0.3-0.7 [facility] Comment on above: Order Comment: Check anti-Xa level every 6 hours while on heparin infusion, or per protocol. Result Comment: [place] roxaban and Apixaban will interfere with the anti Xa assay used to monitor UFH and LMWH. Performed By: #### L [id number] ####[facility] ([facility])[address] [place] [address] BASIC METABOLIC PANELon 09-17 Anion gap [Moles/Vol] 13 mmol/L Normal 7-20 [facility] Comment on above: Performed By: #### L [id number] #### [facility] (BEAKER) [address] [place] [address] Calcium [Mass/Vol] 9.2 mg/dL Normal 8.6-10.3 [facility] Comment on above: Performed By: #### L [id number] #### [facility] (BEAKER) [address] [place] [address] Chloride [Moles/Vol] 102 mmol/L Normal 98-107 [facility] Comment on above: Performed By: #### L [id number] #### [facility] ([facility]) [address] [place] [address] CO2 [Moles/Vol] 30 mmol/L Normal 21-31 [facility] Comment on above: Performed By: #### L [id number] #### [facility] ([facility]) [address] [place] [address] Creatinine [Mass/Vol] 1.17 mg/dL Normal 0.70-1.30 [facility] Comment on above: Performed By: #### L [id number] #### [facility] ([facility]) [address] [place] [address] GLOMERULAR FILTRATION RATE ML/MIN/1.73 SQ M.PREDICTED 77.4 mL/min/1.73m*2 Normal >60.0 [facility] Comment on above: Result Comment: The [facility]???s estimated glomerular filtration rate (eGFR) will no longer include consideration of race in its calculation. The National Kidney Foundation???s eGFR Task Force developed new recommendations for the estimation of the glomerular filtration rate in the [place] They recommend immediate implementation of the new equation refit without the race variable in all laboratories because the calculation does not include race. In addition to not including race in the calculation and reporting, it included diversity in its development, and has acceptable performance characteristics and potential consequences that do not disproportionately affect any one group of individuals. Performed By: #### L [id number] #### [facility] ([facility]) [address] [place] [address] Glucose [Mass/Vol] 122 mg/dL High 70-100 [facility] Comment on above: Performed By: #### L [id number] #### [facility] HOSP[facility] (BEAKER) [address] [place] [address] Potassium [Moles/Vol] 3.7 mmol/L Normal 3.5-5.1 [facility] Comment on above: Performed By: #### L [id number] #### [facility] (BEAKER) [address] [place] [address] Sodium [Moles/Vol] 141 mmol/L Normal 136-145 [facility] Comment on above: Performed By: #### L [id number] #### [facility] [address] [place] [address] Urea nitrogen [Mass/Vol] 21 mg/dL Normal 7-25 [facility] Comment on above: Performed By: #### L [id number] #### [facility] ([facility]) [address] [place] [address] UREA NITROGEN/CREATININE (MASS RATIO) IN SER/PLAS 17.9 Normal [facility] Comment on above: Performed By: #### L [id number] #### [facility] [address] [place] [address] CBCon 10-03-2024 Erythrocyte distribution width (RBC) [Ratio] 14.0 % Normal 11.5-15.0 [facility] Comment on above: Performed By: #### L [id number] #### [facility] ([facility] [address] [place] [address] ERYTHROCYTE MEAN CORPUSCULAR HEMOGLOBIN CONCENTRATION (G/DL) BY AUTOMATED 32.0 g/dL Normal 32.0-35.0 [facility] Comment on above: Performed By: #### L [id number] #### [facility] ([facility] [address] [place] [address] Hematocrit (Bld) [Volume fraction] 49.7 % Normal 39.0-50.0 [facility] Comment on above: Performed By: #### L [id number] #### [facility] (BEAKER) [address] [place] [address] Hemoglobin (Bld) [Mass/Vol] 15.9 g/dL Normal 13.0-17.0 [facility] Comment on above: Performed By: #### L [id number] #### [facility] ([facility] [address] [place] [address] MCH (RBC) [Entitic mass] 28.0 pg Normal 27.0-33.0 [facility] Comment on above: Performed By: #### L [id number] #### [facility] ([facility]) [address] [place] [address] MCV (RBC) [Entitic vol] 87.7 fL Normal 82.0-98.0 [facility] Comment on above: Performed By: #### L [id number] #### [facility] ([facility]) [address] [place] [address] PLATELETS (10*3/UL) IN BLOOD AUTOMATED COUNT 177 10*3/uL Normal 150-400 [facility] Comment on above: Performed By: #### L [id number] #### [facility] ([facility]) [address] [place] [address] RBC (Bld) [#/Vol] 5.67 10*6/uL Normal 4.20-5.70 [facility] Comment on above: Performed By: #### L [id number] #### [facility] ([facility]) [address] [place] [address] WBC (Bld) [#/Vol] 10.55 10*3/uL Normal 4.00-10.60 [facility] Comment on above: Performed By: #### L [id number] #### [facility] ([facility]) [address] [place] [address] CONSULTon 10-03-2024 CONSULT Inpatient consult to Cardiothoracic Surgery Consult performed by: Nida Landa CNP Consult ordered by: Mikael Keene MD Reason for consult: Severe Multivessel Coronary Artery Disease Cardiothoracic Surgery Consultation Note 10/03/2024 Room: [facility]3116- Reason For Consult evaluate for CABG Referring Provider: Merrill Hernández MD History Of Present Illness Magaly Yung is a 49 y.o. male with PMH of smoker, obesity, strong family history of CAD who presented to [facility] as a direct transfer where he was experiencing intermittent chest pain, described as anterior chest dull to pressure-like associated with dyspnea radiating to left. [facility] labs remarkable for BNP 448, BUN 15.9, Creatinine 1.13, High Sensitivity Troponin 25.9. Echocardiogram performed and showed moderate concentric left ventricular hypertrophy severely reduced left ventricular systolic function with global hypokinesia and left ventricular ejection fraction of 15-20%, grade 3 left ventricular diastolic dysfunction. EKG showed normal sinus rhythm with nonspecific T wave changes. BP was elevated and he was started on lisinopril, Coreg, and Imdur. 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 He was transferred to [facility] for cardiac catherization. Underwent cardiac cath yesterday with Dr. Mikael Keene and was found to have severe multivessel CAD. CT Surgery was consulted for surgical evaluation and recommendations. Seen bedside with Dr. Hess this morning. Remains on continuous heparin infusion. Denies chest pain or SOB. Most recent troponin 8. Assessment: Principal Problem: Coronary artery disease of [place] artery of [place] heart with stable angina pectoris Active Problems: NSTEMI (non-ST elevated myocardial infarction) ([facility]) Primary hypertension HFrEF (heart failure with reduced ejection fraction) ([facility]) Obesity Former smoker Plan : -Patient seen and evaluated by Cardiothoracic Team. Dr. Erin Hess personally examined the patient and reviewed The Cardiac Catherization, Echocardiogram, CXR, and Other Diagnostic Testing. Findings discussed with patient. Explained current disease process and reviewed treatment options. -CT Surgery Recommendation: Coronary Artery Bypass Grafting. Echocardiogram from [place] not transferred over, will obtain one this morning. Patient remains hemodynamically stable without chest pain. Will start pre-op workup process. -STS Score for this surgery is: Procedure Type: Isolated CABG Perioperative Outcome Estimate % Operative Mortality 2.96% Morbidity & Mortality 16.3% Stroke 1.14% Renal Failure 2.2% Reoperation 3.23% Prolonged Ventilation 11.6% Deep Sternal Wound Infection 0.425% Long Hospital Stay (>14 days) 6.05% Short Hospital Stay (<6 days)* 36.7% Clinical Summary Planned Surgery: Isolated CABG, Urgent, First cardiovascular surgery Demographics: 49 year old, White, male, 137kg, 189cm, BMI: 38.4 kg/m??? Lab Values: Creatinine: 1.11 mg/dL, Hematocrit: 50.7%, WBC Count: 13.7 10???/?L, Platelet Count: 605288 cells/?L PreOp Medications: Oral diabetes control Substance Abuse: Former smoker Risk Factors / Comorbidities: Diabetes Mellitus , Hypertension, Family Hx of CAD Pulmonary RF: Moderate CLD Cardiac Status: Acute heart failure, NYHA Class III, Ejection Fraction = 30% Coronary Artery Disease: 3 vessels diseased, Proximal LAD Stenosis >= 70%, Non-ST Elevation NE, NE: 1 to 7 Days -Pre-Op Testing needed for this surgery: Bilateral Carotid US, Doppler US of bilateral lower extremities, CT of Chest/ABD/Pelvis, PFTs, Labs, Urinalysis, -CT Surgery will continue to follow. Past Medical History He has no past medical history on file. Surgical History He has no past surgical history on file. Family History No family history on file. Social History He reports that he has quit smoking. His smoking use included cigarettes. His smokeless tobacco use includes chew. No history on file for alcohol use and drug use. Allergies Penicillins Medications No medications prior to admission. Active Hospital Medications Medication Dose Route Frequency Last Admin acetaminophen 650 mg oral q6h PRN albuterol 2 puff inhalation q6h PRN aspirin 81 mg oral Daily 81 mg at 10/02/2441 atorvastatin 40 mg oral Nightly 40 mg at 10/02/242106 carvedilol 25 mg oral BID 25 mg at 10/02/242106 dapagliflozin propanediol 10 mg oral Daily 10 mg at 10/02/24 09 furosemide 60 mg intravenous q12h heparin (porcine) 5,000 Units intravenous Once heparin 0-28 Units/kg/hr intravenous Continuous 16 Units/kg/hr at 10/03/24 0709 isosorbide mononitrate ER 30 mg oral Daily 30 mg at 10/02/24 0941 lisinopril 20 mg oral Daily 20 mg at 10/02/24 0941 nitroglycerin 0.4 mg sublingual q5 min PRN Oxygen Therapy inhalation Continuous Oxygen Off at 10/02/24 0245 spironolactone 25 mg oral Daily 25 mg at 10/02/24 0941 Revie (more content not included)... Normal [facility] MAGNESIUMon 10-03-2024 Magnesium [Mass/Vol] 2.3 mg/dL Normal 1.9-2.7 [facility] Comment on above: Performed By: #### L [id number] #### [facility] ([facility]) [address] [place] [address] URINALYSISon 10-03-2024 BILIRUBIN, TOTAL PRESENCE IN URINE Negative Normal Negative [facility] Comment on above: Order Comment: Micro scopics not performed on urines with negative chemical reactions unless requested on original order. Performed By: #### L [id number] #### [facility] ([facility]) [address] [place] [address] Clarity (U) Clear Normal Clear [facility] Comment on above: Order Comment: Micro scopics not performed on urines with negative chemical reactions unless requested on original order. Performed By: #### L [id number] #### [facility] ([facility]) [address] [place] [address] Color (U) Light-Yellow Normal Colorless, Yellow, Light-Yellow [facility] Comment on above: Order Comment: Micro scopics not performed on urines with negative chemical reactions unless requested on original order. Performed By: #### L [id number] #### [facility] ([facility]) [address] [place] [address] Glucose (U) [Mass/Vol] mg/dL Abnormal Normal [facility] Comment on above: Order Comment: Micro scopics not performed on urines with negative chemical reactions unless requested on original order. Performed By: #### L [id number] #### [facility] ([facility]) [address] [place] [address] HEMOGLOBIN PRESENCE IN URINE Negative Normal Negative [facility] Comment on above: Order Comment: Micro scopics not performed on urines with negative chemical reactions unless requested on original order. Performed By: #### L [id number] #### [facility] ([facility]) [address] [place] [address] Ketones Ql (U) Negative Normal Negative [facility] Comment on above: Order Comment: Micro scopics not performed on urines with negative chemical reactions unless requested on original order. Performed By: #### L [id number] #### [facility] [address] [place] [address] LEUKOCYTE ESTERASE PRESENCE IN URINE BY TEST STRIP Negative Normal Negative [facility] Comment on above: Order Comment: Micro scopics not performed on urines with negative chemical reactions unless requested on original order. Performed By: #### L [id number] #### [facility] ([facility]) [address] [place] [address] NITRITE PRESENCE IN URINE Negative Normal Negative [facility] Comment on above: Order Comment: Micro scopics not performed on urines with negative chemical reactions unless requested on original order. Performed By: #### L [id number] #### [facility] ([facility]) [address] [place] [address] pH (U) 6.0 [pH] Normal 5.0-8.0 [facility] Comment on above: Order Comment: Micro scopics not performed on urines with negative chemical reactions unless requested on original order. Performed By: #### L [id number] #### [facility] ([facility]) [address] [place] [address] Protein (U) [Mass/Vol] Negative Normal Negative [facility] Comment on above: Order Comment: Micro scopics not performed on urines with negative chemical reactions unless requested on original order. Performed By: #### L [id number] #### [facility] ([facility]) [address] [place] [address] Specific gravity (U) [Rel density] 1.020 Normal 1.010-1.030 [facility] Comment on above: Order Comment: Micro scopics not performed on urines with negative chemical reactions unless requested on original order. Performed By: #### L [id number] #### [facility] [address] [place] [address] UROBILINOGEN (MG/DL) IN URINE 2.0 mg/dL Abnormal Normal [facility] Comment on above: Order Comment: Micro scopics not performed on urines with negative chemical reactions unless requested on original order. Performed By: #### L [id number] #### [facility] ([facility]) [address] [place] [address] 30on 10-02-2024 30 Daily Case Managemen t Update Multidisciplinary rounds have been completed. Barriers to Discharge: Patient is a transfer from [facility] for chest pain, cardiology consulted and plan to take patient for heart cath. Mold Filling Operator did read in previous chart notes As above also would recommend outpatient sleep study due to this service writer reached out to primary team about getting pulmonary Navigator consult, waiting to hear back. Discharge dispo: plan at this time is for patient to discharge home when medically ready. Mold Filling Operator heard back from Dr Yu, and was given order to pulmonary navigation consult. Mold Filling Operator placed order. Diet: Dietary Orders (From admission, onward) Start Ordered 10/02/24 0243 Regular Diet Heart Healthy/HTN, CABG,Stroke, (2gNA, low fat, low cholesterol) Diet effective now Question Answer Comment Room Service? Yes Fat restriction: Heart Healthy/HTN, CABG,Stroke, (2gNA, low fat, low cholesterol) 10/02/24 0245 Physician Expected Discharge Date: 10/06/2024 Discharge Delays: PT Six Click Score: OT Six Click Score: PT Recommendations: OT Recommendations: New Consults: Consult Orders (From admission, onward) Start Ordered 10/02/24 1536 Inpatient consult to Cardiothoracic Surgery Once Specialty: Cardiothoracic Surgery Provider: (Not yet assigned) Question Answer Comment Consulting Group CARDIOTHORACIC SURGERY TEAM Reason for Consult? evaluate for CABG Level of Consultation Consultation and Management 10/02/24 1535 Ancillary Consults (From admission, onward) Start Ordered 10/02/24 0244 Inpatient consult to Social Work Once Provider: (Not yet assigned) Question Answer Comment Select all services needed for the patient Other Other: Heart Failure 10/02/24 0245 Normal [facility] 30 The patient is Moderately Stable - Low risk of patient condition declining or worsening The patient's goals for the shift include comfort The clinical goals for the shift include stable vitals Over the shift, the patient did not make progress toward the following goals. Barriers to progression include. Recommendations to address these barriers include. Normal [facility] 30 The patient is Moderately Stable - Low risk of patient condition declining or worsening The patient's goals for the shift include comfort The clinical goals for the shift include stable vitals Problem: Pain - Adult Goal: Verbalizes/displays adequate comfort level or baseline comfort level Outcome: Progressing Flowsheets (Taken 10/02/2024240) Verbalizes/displays adequate comfort level or baseline comfort level: Encourage patient to monitor pain and request assistance Assess pain using appropriate pain scale Administer analgesics based on type and severity of pain and evaluate response Notify Licensed Independent Practitioner if interventions unsuccessful or patient reports new pain Implement non-pharmacological measures as appropriate and evaluate response Consider cultural and social influences on pain and pain management Problem: Safety - Adult Goal: Free from fall injury Outcome: Progressing Flowsheets (Taken 10/02/2024240) Free from fall injury: Assess patient frequently for physical needs Identify cognitive and physical deficits and behaviors that affect risk of falls [place] fall precautions as indicated by assessment Educate patient/family on patient safety, including physical limitations Instruct patient to call for assistance with activity based on assessment Modify environment to reduce risk of injury Consider OT/PT consult to assist with strengthening/mobility Problem: Discharge Planning Goal: Discharge to home or other facility with appropriate resources Outcome: Progressing Flowsheets (Taken 10/02/2024240) Discharge to home or other facility with appropriate resources: Identify barriers to discharge with patient and caregiver Identify discharge learning needs (meds, wound care, etc) Arrange for interpreters to assist at discharge as needed Refer to discharge planning if patient needs post-hospital services based on physician order or complex needs related to functional status, cognitive ability or social support system Arrange for needed discharge resources and transportation as appropriate Problem: Chronic Conditions and Co-morbidities Goal: Patient's chronic conditions and co-morbidity symptoms are monitored and maintained or improved Outcome: Progressing Flowsheets (Taken 10/02/2024240) Care Plan - Patient's Chronic Conditions and Co-Morbidity Symptoms are Monitored and Maintained or Improved: Monitor and assess patient's chronic conditions and comorbid symptoms for stability, deterioration, or improvement Update acute care plan with appropriate goals if chronic or comorbid symptoms are exacerbated and prevent overall improvement and discharge Collaborate with multidisciplinary team to address chronic and comorbid conditions and prevent exacerbation or deterioration Normal [facility] Connor 04-16-2025 ACTIVATED PARTIAL THROMBOPLASTIN TIME IN PPP BY COAGULATION ASSAY 28.5 Seconds Normal 25.0-35.0 [facility] Comment on above: Order Comment: Basel ine aPTT before initiating heparin infusion. Result Comment: Clin ical significance of the APTT is questionable in the presence of heparin. Performed By: #### L [id number] #### [facility] ([facility]) [address] [place] [address] ACTIVATED PARTIAL THROMBOPLASTIN TIME IN PPP BY COAGULATION ASSAY 28.2 Seconds Normal 25.0-35.0 [facility] Comment on above: Order Comment: Basel ine aPTT before initiating heparin infusion. Result Comment: Clin ical significance of the APTT is questionable in the presence of heparin. Performed By: #### L [id number] #### [facility] ([facility]) [address] [place] [address] B-TYPE NATRIURETIC PEPTIDEon 10-02-2024 Natriuretic peptide B (Bld) [Mass/Vol] 121 pg/mL High 0-100 [facility] Comment on above: Performed By: #### L [id number] ####[facility] ([facility])[address] [place] [address] CBC WITH AUTO DIFFERENTIALon 10-02-2024 Basophils (Bld) [#/Vol] 0.10 10*3/uL Normal 0.00-0.20 [facility] Comment on above: Performed By: #### L [id number] #### [facility] ([facility]) [address] [place] [address] Basophils/100 WBC (Bld) 0.7 % Normal 0.0-1.0 [facility] Comment on above: Performed By: #### L [id number] #### [facility] ([facility]) [address] [place] [address] Eosinophils (Bld) [#/Vol] 0.44 10*3/uL Normal 0.00-0.50 [facility] Comment on above: Performed By: #### L [id number] #### [facility] ([facility]) [address] [place] [address] Eosinophils/100 WBC (Bld) 3.2 % Normal 0.0-6.0 [facility] Comment on above: Performed By: #### L [id number] #### [facility] ([facility]) [address] [place] [address] Erythrocyte distribution width (RBC) [Ratio] 13.8 % Normal 11.5-15.0 [facility] Comment on above: Performed By: #### L [id number] #### [facility] ([facility]) [address] [place] [address] ERYTHROCYTE MEAN CORPUSCULAR HEMOGLOBIN CONCENTRATION (G/DL) BY AUTOMATED 32.0 g/dL Normal 32.0-35.0 [facility] Comment on above: Performed By: #### L [id number] #### [facility] ([facility]) [address] [place] [address] Hematocrit (Bld) [Volume fraction] 50.7 % High 39.0-50.0 [facility] Comment on above: Performed By: #### L [id number] #### [facility] ([facility]) [address] [place] [address] Hemoglobin (Bld) [Mass/Vol] 16.2 g/dL Normal 13.0-17.0 [facility] Comment on above: Performed By: #### L [id number] #### [facility] ([facility]) [address] [place] [address] Immature granulocytes (Bld) [#/Vol] 0.06 10*3/uL Normal 0.00-0.20 [facility] Comment on above: Performed By: #### L [id number] #### [facility] ([facility]) [address] [place] [address] Immature granulocytes/100 WBC (Bld) 0.4 % Normal 0.0-1.0 [facility] Comment on above: Performed By: #### L [id number] #### [facility] ([facility]) [address] [place] [address] Lymphocytes (Bld) [#/Vol] 3.01 10*3/uL Normal 1.20-4.00 [facility] Comment on above: Performed By: #### L [id number] #### [facility] ([facility]) [address] [place] [address] Lymphocytes/100 WBC (Bld) 21.9 % Normal 20.0-45.0 [facility] Comment on above: Performed By: #### L [id number] #### [facility] ([facility]) [address] [place] [address] MCH (RBC) [Entitic mass] 27.6 pg Normal 27.0-33.0 [facility] Comment on above: Performed By: #### L [id number] #### [facility] ([facility]) [address] [place] [address] MCV (RBC) [Entitic vol] 86.4 fL Normal 82.0-98.0 [facility] Comment on above: Performed By: #### L [id number] #### [facility] ([facility]) [address] [place] [address] Monocytes (Bld) [#/Vol] 0.95 10*3/uL Normal 0.10-1.00 [facility] Comment on above: Performed By: #### L [id number] #### [facility] ([facility]) [address] [place] [address] Monocytes/100 WBC (Bld) 6.9 % Normal 5.0-12.0 [facility] Comment on above: Performed By: #### L [id number] #### [facility] [address] [place] [address] Neutrophils (Bld) [#/Vol] 9.18 10*3/uL High 1.60-7.60 [facility] Comment on above: Performed By: #### L [id number] #### [facility] ([facility]) [address] [place] [address] Neutrophils/100 WBC (Bld) 66.9 % Normal 40.0-72.0 [facility] Comment on above: Performed By: #### L [id number] #### [facility] ([facility]) [address] [place] [address] NRBC (PER 100 WBCS) BY AUTOMATED COUNT 0.0 % Normal 0 [facility] Comment on above: Performed By: #### L [id number] #### [facility] ([facility]) [address] [place] [address] PLATELETS (10*3/UL) IN BLOOD AUTOMATED COUNT 181 10*3/uL Normal 150-400 [facility] Comment on above: Performed By: #### L [id number] #### [facility] ([facility]) [address] [place] [address] RBC (Bld) [#/Vol] 5.87 10*6/uL High 4.20-5.70 [facility] Comment on above: Performed By: #### L [id number] #### [facility] ([facility]) [address] [place] [address] WBC (Bld) [#/Vol] 13.74 10*3/uL High 4.00-10.60 [facility] Comment on above: Performed By: #### L [id number] #### [facility] ([facility]) [address] [place] [address] COMPREHENSIVE METABOLIC PANE Davi 10-02-2024 Albumin [Mass/Vol] 4.3 g/dL Normal 3.5-5.7 [facility] Comment on above: Performed By: #### L [id number] ####[facility] ([facility])[address] [place] [address] ALP [Catalytic activity/Vol] 80 U/L Normal 34-104 [facility] Comment on above: Performed By: #### L [id number] ####[facility] ([facility])[address] [place] [address] ALT [Catalytic activity/Vol] 22 U/L Normal 7-52 [facility] Comment on above: Performed By: #### L [id number] ####[facility] ([facility])[address] [place] [address] Anion gap [Moles/Vol] 11 mmol/L Normal 7-20 [facility] Comment on above: Performed By: #### L [id number] ####[facility] ([facility])[address] [place] [address] AST [Catalytic activity/Vol] 17 U/L Normal 13-39 [facility] Comment on above: Performed By: #### L [id number] ####[facility] ([facility])[address] [place] [address] Bilirubin [Mass/Vol] 0.6 mg/dL Normal 0.3-1.0 [facility] Comment on above: Performed By: #### L [id number] ####[facility] ([facility])[address] [place] [address] Calcium [Mass/Vol] 9.2 mg/dL Normal 8.6-10.3 [facility] Comment on above: Performed By: #### L [id number] ####[facility] ([facility])[address] [place] [address] Chloride [Moles/Vol] 102 mmol/L Normal 98-107 [facility] Comment on above: Performed By: #### L [id number] ####[facility] ([facility])[address] [place] [address] CO2 [Moles/Vol] 29 mmol/L Normal 21-31 [facility] Comment on above: Performed By: #### L [id number] ####[facility] [place] [address] Creatinine [Mass/Vol] 1.11 mg/dL Normal 0.70-1.30 [facility] Comment on above: Performed By: #### L [id number] ####[facility] ([facility])[address] [place] [address] GLOMERULAR FILTRATION RATE ML/MIN/1.73 SQ M.PREDICTED 82.4 mL/min/1.73m*2 Normal >60.0 [facility] Comment on above: Result Comment: The [facility]???s estimated glomerular filtration rate (eGFR) will no longer include consideration of race in its calculation. The National Kid[employer] Foundation???s eGFR Task Force developed new recommendations for the estimation of the glomerular filtration rate in the [place] They recommend immediate implementation of the new equation refit without the race variable in all laboratories because the calculation does not include race. In addition to not including race in the calculation and reporting, it included diversity in its development, and has acceptable performance characteristics and potential consequences that do not disproportionately affect any one group of individuals. Performed By: #### L [id number] ####[facility] ([facility])[address] [place] [address] Glucose [Mass/Vol] 181 mg/dL High 70-100 [facility] Comment on above: Performed By: #### L [id number] ####[facility] ([facility])[address] [place] [address] Potassium [Moles/Vol] 3.4 mmol/L Low 3.5-5.1 [facility] Comment on above: Performed By: #### L [id number] ####[facility] ([facility] [place] [address] Protein [Mass/Vol] 7.0 g/dL Normal 6.0-8.3 [facility] Comment on above: Performed By: #### L [id number] ####[facility] ([facility] [place] [address] Sodium [Moles/Vol] 139 mmol/L Normal 136-145 [facility] Comment on above: Performed By: #### L [id number] ####[facility] ([facility] [place] [address] Urea nitrogen [Mass/Vol] 18 mg/dL Normal 7-25 [facility] Comment on above: Performed By: #### L [id number] ####[facility] ([facility])[address] [place] [address] UREA NITROGEN/CREATININE (MASS RATIO) IN SER/PLAS 16.2 Normal [facility] Comment on above: Performed By: #### L [id number] ####[facility] ([facility])[address] [place] [address] CONSULTon 10-02-2024 CONSULT Adult Nutrition Assessment: Name: Magaly Yung Date: 1975 Date of Visit: 10/02/24 Admission Dx: NSTEMI (non-ST elevated myocardial infarction) ([facility]) [I21.4] Reason for assessment: MD referral Information obtained from: patient and medical record History reviewed. No pertinent past medical history. Current Medications: aspirin, 81 mg, oral, Daily atorvastatin, 40 mg, oral, Nightly carvedilol, 25 mg, oral, BID dapagliflozin propanediol, 10 mg, oral, Daily furosemide, 40 mg, intravenous, q12h heparin (porcine), 5,000 Units, intravenous, Once isosorbide mononitrate ER, 30 mg, oral, Daily lisinopril, 20 mg, oral, Daily Oxygen Therapy, , inhalation, Continuous spironolactone, 25 mg, oral, Daily heparin, 0-28 Units/kg/hr Labs: 0 Lab Value Date/Time BUN 18 10/02/2024357 CREATININE 1.11 10/02/20248 NA 139 10/02/2024357 K 3.4 (L) 10/02/2024357 HGBA1C 6.8 (H) 10/02/2024357 HGB 16.2 10/02/20248 WBC 13.74 (H) 10/02/20248 CHOL 211 (H) 10/02/20248 HDL 21 (L) 10/02/2024 0358 Allergies: Allergies Allergen Reactions Penicillins Anaphylaxis Nutrition Problems: Swallowing Assessment: Pt denied problems swallowing Mouth: Pt denied problems swallowing Abdominal Assessment: Pt denied any NVC, and reported that he has some diarrhea at the other hospital and he thinks it was related to medications Appetite: good Cognition: Neuro WDL Feeding Skills: Pt reported that his will cook and he has good access to food Skin Integrity: documented to be intact Edema: RLE non-pitting, LLE non-pitting Other Factors: EF 15-20% Nutrition Data/Clinical Indicators of Nutrition Status: Height: 189 cm (6' 2.41 ) Weight: (!) 140 kg (309 lb 6.4 oz) Wt Readings from Last 10 Encounters: 10/02/24 (!) 140 kg (309 lb 6.4 oz) IBW: 86.4 kg UBW: 298-300 lbs per pt Weight change: No recent weight history. Pt reported that he has gained weight and he thinks it is related to fluid Nutrition Assessment: Pt reported that he has not had any recent changes in his appetite or intake. Pt reported that he will typically eat one meal a day that his cooks. Pt reported for this meal he will have cheeseburgers, chicken, pasta, or things like that. Pt reported that he drinks about 1 cup of coffee a day. 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 Pt reported that he works at night sometimes. Pt reported that he will eat snacks in his truck like breakfast sandwiches, little debbies, dorotios, or other things from angel stations or truck stops. Pt reported that he likes fruit, and sees fruit at the truck stops, but it is not ripe. Pt reported that he wants to make changes to his diet and lifestyle and he has started to make changes. Pt reported that he has been trying to eat at home more and used avocado oil instead of butter. Pt reported that he has cut out tobacco. Pt reported that he likes to add salt to his food, but he is agreeable to try salt substituents and use other seasonings. RD discussed more heart healthy snacks at the gas station and discussed the option of packing food for when he is in the truck. Dietary Orders (From admission, onward) Start Ordered 10/02/24 0243 Regular Diet Heart Healthy/HTN, CABG,Stroke, (2gNA, low fat, low cholesterol) Diet effective now Question Answer Comment Room Service? Yes Fat restriction: Heart Healthy/HTN, CABG,Stroke, (2gNA, low fat, low cholesterol) 10/02/24 0245 Nutrition Risk: Low Nutrition Diagnosis: food and nutrition related knowledge deficit related to need for HF diet education as evidenced by new diagnosis of hear failure. Malnutrition Assessment: Per Registered Dietitian assessment and evaluation, patient does not currently meet criteria OR there is not enough information to support the diagnosis of malnutrition per the clinical criteria set by the Academy of Nutrition and Dietetics (AND) and the Stateless Society of Enteral and Parenteral Nutrition (ASPEN). Nutrition Education: Diet literature: Heart Failure Nutrition Therapy (explained CHF-diet relationship, discussed and reviewed reading nutrition labels, recommended daily sodium intake of no more than 2,000 mg/d (or 1~ tsp salt/d), reviewed and encouraged flavoring alternatives to salt, explained difference between saturated fat vs unsaturated fat and identified sources of each with recommendation to limit saturated fat intakes, recommended adequate intake of fruits/vegetables at each meal and for snacks, encouraged choosing lean proteins, encouraged preparing more meals at home, recommended decreasing frequency of eating out/take-out foods, encouraged avoiding or limiting salty snacks/processed foods/frozen foods , and discussed packing snacks to take to work and heart healthy snacks at truck stops) Also provided Heart Failure Nutrition Therapy handout fr (more content not included)... Normal [facility] CONSULT --- Attestation signed by Marko Smith MD at 10/02/2024 7:53 PM (Updated) I personally spoke with and examined Mr. Yung this morning with Dr. Montero. He has severe LV dysfunction the setting of angina at low levels of activity such as walking across his trailer. My diagnoses are acute systolic heart failure in the setting of a non-ST elevation NE. We discussed the expected risks and benefits of catheterization and he understood. This afternoon after the procedure I personally reviewed the results with Dr. Keene who performed it. There is a proximal LAD lesion and other CAD, we will consult CT surgery for possible CABG. Cardiology Consult Note Reason for Consult: Chest pain HPI: Magaly Yung is a 49 y.o. male with insignificant medical history, other than tobacco use disorder for 20 years, presenting from [facility] with chest pain Patient reports that he has been endorsing continued chest pain of 1 week duration, it become worse yesterday so he went to [facility]. Associated with diaphoresis, feels like a pressure, 5 out of 10, no radiation. Patient has a brother that with heart attack at the age of 42, mother at age of 47, at [facility] patient echo showed heart failure with reduced ejection fraction with EF of 15 to 20%, BNP 448. Troponin 25.9. EKG with a Q wave in lead III otherwise no ST/T wave changes. Cardiology ROS: Review of Systems Constitutional: Negative for activity change and fatigue. HENT: Negative for rhinorrhea. Eyes: Negative for pain. Respiratory: Positive for chest tightness. Negative for cough. Cardiovascular: Positive for chest pain. Negative for palpitations. Gastrointestinal: Negative for blood in stool and constipation. Musculoskeletal: Positive for back pain and gait problem. Negative for myalgias. Neurological: Negative for numbness. Psychiatric/Behavioral: Negative for behavioral problems. Past Medical History He has no past medical history on file. Surgical History He has no past surgical history on file. Social History He reports that he has quit smoking. His smoking use included cigarettes. His smokeless tobacco use includes chew. No history on file for alcohol use and drug use. Family History No family history on file. Allergies Penicillins Medications No current outpatient medications No medications prior to admission. Last Recorded Vitals Patient Vitals for the past 24 hrs: BP Temp Temp src Pulse Resp SpO2 Weight 10/02/24 0400 140/72 36.5 ???C (97.7 ???F) Temporal 76 17 96 % -- 10/02/24 0253 (!) 178/102 -- -- 78 -- -- -- 10/02/24 0211 (!) 188/102 36.6 ???C (97.9 ???F) Temporal 76 13 97 % -- 10/02/24 0152 -- -- -- -- -- -- (!) 140 kg (309 lb 6.4 oz) Physical Examination: Physical Exam Cardiovascular: Rate and Rhythm: Normal rate. Relevant Lab Results Encounter Date: 10/02/24 ECG 12 lead Result Value Ventricular Rate 77 Atrial Rate 77 CO Interval 186 QRS DURATION 102 QT Interval 422 QTC CALCULATION(BAZETT) 477 P [place] 51 R-[place] 34 T Wave [place] 54 Impression Sinus rhythm with occasional Premature ventricular complexes Otherwise normal ECG No previous ECGs available No results found for: CKTOTAL , CKMB , CKMBINDEX , TROPONINI No echocardiogram results found for the past 12 months No nuclear medicine results found for the past 12 months Relevant Imaging Results ECG 12 lead Sinus rhythm with occasional Premature ventricular complexes Otherwise normal ECG No previous ECGs available ASSESSMENT Unstable angina, high suspicious about coronary artery disease Family history of premature coronary artery disease Acute systolic heart failure with reduced ejection fraction, EF at [facility] 15 to 20% on 10/01/2024 Tobacco use disorder, smoking for more than 20 years a pack a day Essential hypertension Obesity with BMI more than 30 PLAN ASCVD: Lipitor 40, aspirin 81, Coreg 25 GDMT: Coreg 25, lisinopril 20 mg, Farxiga 10 mg, Aldactone 25 mg Lasix IV however 40 mg twice daily Start heparin drip Plan for left heart cath today Remainder of care as per primary team and other consultative services Cardiology team will continue to follow This note was, at least in part, completed using a voice compositor apprentice system. Every effort was made to ensure accuracy. However, inadvertent computerized compositor apprentice errors may be present. Vic Montero PGY-2, internal medicine resident [facility] Normal [facility] HEMOGLOBIN A1Con 10-02-2024 Glucose [Mass/Vol] 148 mg/dL Normal [facility] Comment on above: Performed By: #### L [id number] #### [facility] (BEAKER) [address] [place] [address] HbA1c (Bld) [Mass fraction] 6.8 % High 4.0-6.0 [facility] Comment on above: Performed By: #### L [id number] #### [facility] ([facility]ER) [address] [place] [address] HIGH SENSITIVITY TROPONIN Io n 10-02-2024 HS TROPONIN I (NG/L) 8 ng/L Normal <20 [facility] Comment on above: Performed By: #### L [id number] #### [facility] ([facility]) [address] [place] [address] HS TROPONIN I (NG/L) 10 ng/L Normal <20 [facility] Comment on above: Performed By: #### L [id number] #### [facility] [address] [place] [address] HS TROPONIN I (NG/L) 11 ng/L Normal <20 [facility] Comment on above: Performed By: #### L [id number] ####[facility] [place] [place] [address] HS TROPONIN I (NG/L) 10 ng/L Normal <20 [facility] Comment on above: Performed By: #### L [id number] #### [facility] [address] [place] [address] HPon 10-02-2024 HP H&P reviewed. The patient was examined and there are no changes to the H&P. Proceed with coronary angiogram for unstable angina Normal [facility] LIPID PANELon 10-02-2024 CHOL/HDL 10.0 mg/dL Normal [facility] Comment on above: Performed By: #### L [id number] #### [facility] ([facility] [address] [place] [place] [address] Cholesterol [Mass/Vol] 211 mg/dL High 120-200 [facility] Comment on above: Performed By: #### L [id number] #### [facility] ([facility]) [address] [place] [address] Magnesium [Mass/Vol] 132 mg/dL Normal <150 [facility] Comment on above: Result Comment: TRIG LYCERIDE REFERENCE RANGE: 20 YEARS AND OLDER CARDIOVASCULAR RISK LESS THAN 150 mg/dL LOW RISK 150 TO 199 mg/dL BORDERLINE RISK 200 mg/dL AND GREATER HIGH RISK Performed By: #### L [id number] #### [facility] ([facility]) [address] [place] [address] Magnesium [Mass/Vol] 164 mg/dL High 0-160 [facility] Comment on above: Performed By: #### L [id number] #### [facility] ([facility]) [address] [place] [address] Magnesium [Mass/Vol] 21 mg/dL Low 23-92 [facility] Comment on above: Performed By: #### L [id number] #### [facility] ([facility]) [address] [place] [address] NON HDL CHOL. (LDL+VLDL) 190 Normal [facility] Comment on above: Performed By: #### L [id number] #### [facility] ([facility]) [address] [place] [address] TOTAL VLDL-C 26 mg/dL Normal 0-40 [facility] Comment on above: Performed By: #### L [id number] #### [facility] ([facility]) [address] [place] [address] PLATELET COUNTon 10-02-2024 PLATELETS (10*3/UL) IN BLOOD AUTOMATED COUNT 194 10*3/uL Normal 150-400 [facility] Comment on above: Performed By: #### L [id number] #### [facility] ([facility]) [address] [place] [address] PLATELETS (10*3/UL) IN BLOOD AUTOMATED COUNT 198 10*3/uL Normal 150-400 [facility] Comment on above: Performed By: #### L [id number] ####[facility] ([facility])[address] [place] [address] TSH3 REFLEX TO FT4on 025 THYROTROPIN (MIU/L) IN SER/PLAS BY DETECTION LIMIT <= 0.05 MIU/L 3.25 mIU/L Normal 0.34-5.60 [facility] Comment on above: Performed By: #### L [id number] ####[facility] ([facility])[address] [place] [address] COVID-19 Antigenon 1 COVID-19 Antigen Reason for Exam Feve r, unspecified fever cause;Body aches Nasal Reason for Exam: Fever, unspecified fever cause;Body aches Healthcare Worker?: No : Nasal Ed Reference Ed Reference Negative SARS-CoV+SARS-CoV-2 (COVID-19) Ag [Presence] in Respiratory specimen by Rapid immunoassay Negative for SARS Antigen by SYED COVID19 Blank Space -------- Ed Disclaimer Negative results, from patients with symptom Ed Disclaimer onset beyond five days, should be treated as Ed Disclaimer presumptive and confirmation with a molecular Ed Disclaimer assay, if necessary, for patient management, Ed Disclaimer may be performed. Negative results do not rule Ed Disclaimer out COVID-19 and should not be used as the sole Ed Disclaimer basis for treatment or patient management Ed Disclaimer decisions, including infection control decisions. Ed Disclaimer Negative results should be considered in the Ed Disclaimer context of a patient's recent exposures, history Ed Disclaimer and the presence of clinical signs and symptoms Ed Disclaimer consistent with COVID-19. COVID19 Blank Space -------- Ed Disclaimer The Ed SARS Antigen SYED does not differentiate Ed Disclaimer between SARS-CoV and SARS-CoV-2. COVID19 Blank Space -------- Ed Disclaimer This test was developed and its performance Ed Disclaimer characteristic determined by [employer] and Ed Disclaimer validated at [facility]. This Ed Disclaimer test has not been FDA cleared or approved. This Ed Disclaimer test has been authorized by FDA under an Emergency Use Ed Disclaimer Authorization (EUA). This test has been validated Ed Disclaimer in accordance with the FDA's Guidance Document (Policy Ed Disclaimer for Diagnostics Testing in Laboratories Certified to Ed Disclaimer Perform High Complexity Testing under CLIA prior to Ed Disclaimer Emergency Use Authorization for Coronavirus Ed Disclaimer iseas during the Public Health Emergency) Ed Disclaimer issued on September 19, 2019. This test is only authorized Ed Disclaimer for the duration of time the declaration that Ed Disclaimer circumstances exist justifying the authorization of Ed Disclaimer the emergency use of in vitro diagnostic tests for Ed Disclaimer detection of SARS-CoV-2 virus and/or diagnosis of Ed Disclaimer COVID-19 infection under section 564(b)(1) of the Ed Disclaimer Act, 21 U.S.C. 360bbb-3(b)(1), unless the Ed Disclaimer authorization is terminated or revoked sooner. PERFORMED BY: [place] [address] PATHOLOGIST DIRECTOR PAYMENT PATTI DE M.D. Normal [facility] Comment on above: Performed By: #### S NATALYA COVID-19 ED #### [facility] [address] [place] [address] Ed Ag Negativeon 01-26-20 21 Ed Ag Negative Negative Normal Negative [facility] Comment on above: Result Comment: This is a duplicate Ed SARS Antigen (SYED) result to be used for statistical tracking purpose only. PERFORMED BY: [place] [address] PATHOLOGIST DIRECTOR PAYMENT PATTI DE M.D. Performed By: #### S NATALYA COVID-19 ED #### [facility] [address] [place] [address] Complete Blood Count Auto Di ffon 10-26-2020 Basophils (Bld) [#/Vol] 0.1 10*3/uL Normal 0.0-0.2 [facility] Comment on above: Order Comment: Reaso n for Exam Essential hypertension Result Comment: PERF ORMED BY: [place] [address] PATHOLOGIST DIRECTOR PAYMENT PATTI DE M.D. Performed By: #### V [id number], CMP, CBC, LIPID #### [facility] [address] [place] [address] [place] Basophils/100 WBC (Bld) 1.0 % Normal . [facility] Comment on above: Order Comment: Reaso n for Exam Essential hypertension Performed By: #### V [id number], CMP, CBC, LIPID #### [facility] [address] [place] [address] [place] Eosinophils (Bld) [#/Vol] 0.4 10*3/uL Normal 0.0-0.45 [facility] Comment on above: Order Comment: Reaso n for Exam Essential hypertension Performed By: #### V [id number], CMP, CBC, LIPID #### [address] Eosinophils/100 WBC (Bld) 4.7 % Normal . [facility] Comment on above: Order Comment: Reaso n for Exam Essential hypertension Performed By: #### V [id number], CMP, CBC, LIPID #### [address] Erythrocyte distribution width (RBC) [Ratio] 14.0 % Normal 12.0-14.8 [facility] Comment on above: Order Comment: Reaso n for Exam Essential hypertension Performed By: #### V [id number], CMP, CBC, LIPID #### [facility] [address] [place] [address] Hematocrit (Bld) [Volume fraction] 47.4 % Normal 38.8-50.0 [facility] Comment on above: Order Comment: Reaso n for Exam Essential hypertension Performed By: #### V [id number], CMP, CBC, LIPID #### [facility] [address] [place] [address] [place] Hemoglobin (Bld) [Mass/Vol] 16.3 g/dL Normal 13.0-17.0 [facility] Comment on above: Order Comment: Reaso n for Exam Essential hypertension Performed By: #### V [id number], CMP, CBC, LIPID #### [facility] [address] [place] [address] Lymphocytes (Bld) [#/Vol] 2.3 10*3/uL Normal 1.00-4.8 [facility] Comment on above: Order Comment: Reaso n for Exam Essential hypertension Performed By: #### V [id number], CMP, CBC, LIPID #### [facility] [address] [place] [address] Lymphocytes/100 WBC (Bld) 26.7 % Normal . [facility] Comment on above: Order Comment: Reaso n for Exam Essential hypertension Performed By: #### V [id number], CMP, CBC, LIPID #### [facility] [address] [place] [address] MCH (RBC) [Entitic mass] 30.8 pg Normal 27.5-35.2 [facility] Comment on above: Order Comment: Reaso n for Exam Essential hypertension Performed By: #### V [id number], CMP, CBC, LIPID #### [facility] [address] [place] [address] MCV (RBC) [Entitic vol] 89.7 fL Normal 83.5-101 [facility] Comment on above: Order Comment: Reaso n for Exam Essential hypertension Performed By: #### V [id number], CMP, CBC, LIPID #### [facility] [address] [place] [address] Mean Corpuscular HGB Conc 34.4 g/dL Normal 32.5-35.6 [facility] Comment on above: Order Comment: Reaso n for Exam Essential hypertension Performed By: #### V [id number], CMP, CBC, LIPID #### [facility] [address] [place] [address] Monocytes (Bld) [#/Vol] 0.9 10*3/uL High 0.0-0.8 [facility] Comment on above: Order Comment: Reaso n for Exam Essential hypertension Performed By: #### V [id number], CMP, CBC, LIPID #### [facility] [address] [place] [address] [place] Monocytes/100 WBC (Bld) 10.4 % Normal . [facility] Comment on above: Order Comment: Reaso n for Exam Essential hypertension Performed By: #### V [id number], CMP, CBC, LIPID #### [facility] [address] [place] [address] [place] Neutrophils (Bld) [#/Vol] 5.0 10*3/uL Normal 1.8-7.7 [facility] Comment on above: Order Comment: Reaso n for Exam Essential hypertension Performed By: #### V [id number], CMP, CBC, LIPID #### [facility] [address] [place] [address] [place] Neutrophils/100 WBC (Bld) 57.2 % Normal . [facility] Comment on above: Order Comment: Reaso n for Exam Essential hypertension Performed By: #### V [id number], CMP, CBC, LIPID #### [facility] [address] [place] [address] [place] Nucleated RBC/100 WBC (Bld) [Ratio] 0.1 % Normal 0-0.5 [facility] Comment on above: Order Comment: Reaso n for Exam Essential hypertension Performed By: #### V [id number], CMP, CBC, LIPID #### [facility] [address] [place] [address] [place] Platelet mean volume (Bld) [Entitic vol] 11.0 fL High 6.6-10.1 [facility] Comment on above: Order Comment: Reaso n for Exam Essential hypertension Performed By: #### V [id number], CMP, CBC, LIPID #### [facility] [address] [place] [address] [place] Platelets (Bld) [#/Vol] 159 10*3/uL Normal 150-450 [facility] Comment on above: Order Comment: Reaso n for Exam Essential hypertension Performed By: #### V [id number], CMP, CBC, LIPID #### [facility] [address] [place] [address] [place] RBC (Bld) [#/Vol] 5.29 10*6/uL Normal 3.90-5.60 [facility] Comment on above: Order Comment: Reaso n for Exam Essential hypertension Performed By: #### V [id number], CMP, CBC, LIPID #### [facility] [address] [place] [id number] [facility] WBC (Bld) [#/Vol] 8.8 10*3/uL Normal 4.5-11.0 [facility] Comment on above: Order Comment: Reaso n for Exam Essential hypertension Performed By: #### V [id number], CMP, CBC, LIPID #### [facility] [address] Comprehensive Metabolic Pane davi 10-26-2020 Albumin [Mass/Vol] 3.9 g/dL Normal 3.2-5.5 [facility] Comment on above: Order Comment: PT FA STED 11 HRS Reason for Exam Essential hypertension Reason for Exam Essential hypertension;Vitamin D deficiency Performed By: #### V [id number], CMP, CBC, LIPID #### [facility] [address] Albumin/Globulin [Mass ratio] 1.6 {ratio} Normal [facility] Comment on above: Order Comment: PT FA STED 11 HRS Reason for Exam Essential hypertension Reason for Exam Essential hypertension;Vitamin D deficiency Performed By: #### V [id number], CMP, CBC, LIPID #### [facility] [address] [place] [id number] [facility] ALP [Catalytic activity/Vol] 75 U/L Normal 32-92 [facility] Comment on above: Order Comment: PT FA STED 11 HRS Reason for Exam Essential hypertension Reason for Exam Essential hypertension;Vitamin D deficiency Performed By: #### V [id number], CMP, CBC, LIPID #### [facility] [address] [place] [id number] [facility] ALT [Catalytic activity/Vol] 40 U/L Normal 10-60 [facility] Comment on above: Order Comment: PT FA STED 11 HRS Reason for Exam Essential hypertension Reason for Exam Essential hypertension;Vitamin D deficiency Performed By: #### V [id number], CMP, CBC, LIPID #### [facility] [address] [place] [id number] [place] AST [Catalytic activity/Vol] 23 U/L Normal 10-42 [facility] Comment on above: Order Comment: PT FA STED 11 HRS Reason for Exam Essential hypertension Reason for Exam Essential hypertension;Vitamin D deficiency Performed By: #### V [id number], CMP, CBC, LIPID #### [facility] [address] [place] [address] [place] Bilirubin [Mass/Vol] 0.5 mg/dL Normal 0.3-1.2 [facility] Comment on above: Order Comment: PT FA STED 11 HRS Reason for Exam Essential hypertension Reason for Exam Essential hypertension;Vitamin D deficiency Performed By: #### V [id number], CMP, CBC, LIPID #### [facility] [address] [place] [id number] [facility] Calcium [Mass/Vol] 9.3 mg/dL Normal 8.2-10.2 [facility] Comment on above: Order Comment: PT FA STED 11 HRS Reason for Exam Essential hypertension Reason for Exam Essential hypertension;Vitamin D deficiency Performed By: #### V [id number], CMP, CBC, LIPID #### [facility] [address] [place] [address] [place] Chloride [Moles/Vol] 102 mmol/L Normal 95-114 [facility] Comment on above: Order Comment: PT FA STED 11 HRS Reason for Exam Essential hypertension Reason for Exam Essential hypertension;Vitamin D deficiency Performed By: #### V [id number], CMP, CBC, LIPID #### [facility] [address] [place] [id number] [place] CO2 [Moles/Vol] 27.8 mmol/L Normal 22.0-30.0 [facility] Comment on above: Order Comment: PT FA STED 11 HRS Reason for Exam Essential hypertension Reason for Exam Essential hypertension;Vitamin D deficiency Performed By: #### V [id number], CMP, CBC, LIPID #### [facility] [address] [place] [id number] [place] Creatinine [Mass/Vol] 1.17 mg/dL Normal 0.64-1.27 [facility] Comment on above: Order Comment: PT FA STED 11 HRS Reason for Exam Essential hypertension Reason for Exam Essential hypertension;Vitamin D deficiency Performed By: #### V [id number], CMP, CBC, LIPID #### [facility] [address] [place] [id number] [place] Estimated GFR ( Henny > 60 Normal [facility] Comment on above: Order Comment: PT FA STED 11 HRS Reason for Exam Essential hypertension Reason for Exam Essential hypertension;Vitamin D deficiency Result Comment: GFR estimated reference range: According to KDOQI guidelines, <60 ml/min/1.73m2 is sufficient to diagnose a patient with chronic kidney disease. Performed By: #### V [id number], CMP, CBC, LIPID #### [facility] [address] Estimated GFR (Non- Am > 60 Normal [facility] Comment on above: Order Comment: PT FA STED 11 HRS Reason for Exam Essential hypertension Reason for Exam Essential hypertension;Vitamin D deficiency Performed By: #### V [id number], CMP, CBC, LIPID #### [facility] [address] Globulin (S) [Mass/Vol] 2.5 g/dL Normal [facility] Comment on above: Order Comment: PT FA STED 11 HRS Reason for Exam Essential hypertension Reason for Exam Essential hypertension;Vitamin D deficiency Performed By: #### V [id number], CMP, CBC, LIPID #### [facility] [address] [place] [id number] [facility] Glucose [Mass/Vol] 114 mg/dL High 70-100 [facility] Comment on above: Order Comment: PT FA STED 11 HRS Reason for Exam Essential hypertension Reason for Exam Essential hypertension;Vitamin D deficiency Result Comment: [place] om Glucose Reference Range is dependent on time and content of last meal. Glucose of more than 200 mg/dL in a nonstressed, ambulatory subject supports the diagnosis of Diabetes Mellitus. ADA recommended reference range Performed By: #### V [id number], CMP, CBC, LIPID #### [facility] [address] Potassium [Moles/Vol] 3.8 mmol/L Normal 3.5-5.1 [facility] Comment on above: Order Comment: PT FA STED 11 HRS Reason for Exam Essential hypertension Reason for Exam Essential hypertension;Vitamin D deficiency Performed By: #### V [id number], CMP, CBC, LIPID #### [facility] [address] [place] [id number] [facility] Protein [Mass/Vol] 6.4 g/dL Normal 6.1-7.9 [facility] Comment on above: Order Comment: PT FA STED 11 HRS Reason for Exam Essential hypertension Reason for Exam Essential hypertension;Vitamin D deficiency Performed By: #### V [id number], CMP, CBC, LIPID #### [facility] [address] Sodium [Moles/Vol] 137 mmol/L Normal 136-146 [facility] Comment on above: Order Comment: PT FA STED 11 HRS Reason for Exam Essential hypertension Reason for Exam Essential hypertension;Vitamin D deficiency Performed By: #### V [id number], CMP, CBC, LIPID #### [facility] [address] [place] [address] Urea nitrogen [Mass/Vol] 15 mg/dL Normal 9-23 [facility] Comment on above: Order Comment: PT FA STED 11 HRS Reason for Exam Essential hypertension Reason for Exam Essential hypertension;Vitamin D deficiency Performed By: #### V [id number], CMP, CBC, LIPID #### [facility] [address] [place] [address] Lipid Panelon 10-26-2020 Cholesterol [Mass/Vol] 205 mg/dL High 140-200 [facility] Comment on above: Order Comment: PT FA STED 11 HRS Reason for Exam Essential hypertension Reason for Exam Essential hypertension;Vitamin D deficiency Result Comment: Chol less than 200 mg/dl low risk Chol 201-239 mg/dl borderline risk Chol 240 mg/dl and greater high risk Performed By: #### V [id number], CMP, CBC, LIPID #### [facility] [address] [place] [address] Cholesterol in HDL [Mass/Vol] 24 mg/dL Low 29-71 [facility] Comment on above: Order Comment: PT FA STED 11 HRS Reason for Exam Essential hypertension Reason for Exam Essential hypertension;Vitamin D deficiency Result Comment: HDL CHOL ATP-III CLASSIFICATION Cardiovascular Risk HDL > or equal to 60 mg/dL LOW HDL < 40 mg/dL HIGH Performed By: #### V [id number], CMP, CBC, LIPID #### [facility] [address] Cholesterol.total/Ch olesterol in HDL [Mass ratio] 8.5 {ratio} Normal <5.0 [facility] Comment on above: Order Comment: PT FA STED 11 HRS Reason for Exam Essential hypertension Reason for Exam Essential hypertension;Vitamin D deficiency Performed By: #### V [id number], CMP, CBC, LIPID #### [facility] [address] LDL Cholesterol,Calculat ed 131 mg/dL High 0-100 [facility] Comment on above: Order Comment: PT FA STED 11 HRS Reason for Exam Essential hypertension Reason for Exam Essential hypertension;Vitamin D deficiency Result Comment: LDL ATP III CLASSIFICATION LDL less than 100 mg/dL Optimal LDL 100-129 mg/dL Near or above optimal LDL 130-159 mg/dL Borderline high LDL 160-189 mg/dL High LDL greater than 189 mg/dL Very high Performed By: #### V [id number], CMP, CBC, LIPID #### [facility] [address] Triglyceride w/Reflex 248 mg/dL High 35-149 [facility] Comment on above: Order Comment: PT [...] (CDC) test method. Performed By: #### V [id number], CMP, CBC, LIPID #### [facility] [address] VLDL CHOLESTEROL 49 mg/dL Normal [facility] Comment on above: Order Comment: PT FA STED 11 HRS Reason for Exam Essential hypertension Reason for Exam Essential hypertension;Vitamin D deficiency Performed By: #### V [id number], CMP, CBC, LIPID #### [facility] [address] [place] [address] [facility] Vitamin D 25 Hydroxy Totalon 10-26-2020 Vitamin D 25 Hydroxy Total 50.8 ng/mL Normal 30-100 [facility] Comment on above: Order Comment: PT FA STED 11 HRS Reason for Exam Essential hypertension Reason for Exam Essential hypertension;Vitamin D deficiency Result Comment: [place] MIN D STATUS 25(OH)VITAMIN D RANGE (ng/mL) Deficient <20 Insufficient 20 to <30 Sufficient 30 to 100 Reference: Aranza MF,Kindra PEREZ, Checo NELSON, et al. Evaluation,treatment, and prevention of vitamin D deficiency; an Endocrine Society clinical practice guideline. JCEM. 2010; 96(7):1911-30. PERFORMED BY: [place] [id number] PATHOLOGIST DIRECTOR PAYMENT PATTI DE M.D. Performed By: #### V [id number], CMP, CBC, LIPID #### [place] [id number] [facility] Encounters Encounter Date Encounter Type Care Provider Facility Start: 12-02-2024 ambulatory TACO SPENCE [facility] Start: 11-20-2024 ambulatory [facility] Start: 11-20-2024 End: 11-20-2024 ambulatory [facility] Start: 10-17-2024 ambulatory [facility] Start: 10-17-2024 Encounter for other preprocedural examination [facility] Start: 10-11-2024 End: 10-11-2024 [facility] Start: 10-04-2024 End: 10-04-2024 ambulatory ERIN HESS [facility] Start: 10-04-2024 Evaluation and manag ement of inpatient NIDA Thomson [facility] Start: 10-04-2024 Evaluation and manag ement of inpatient [facility] Start: 10-03-2024 Evaluation and manag ement of inpatient NIDA Thomson LAK[facility]I [facility] Start: 10-02-2024 End: 10-04-2024 Evaluation and management of inpatient MERRILL HERNÁNDEZ [facility] Payers Date Payer Category Payer Unknown [id number] Clinical Notes 10-02-2024 to 12-02-2024 Note Date & Type Note Facility 12-02-2024 Note CARDIOLOGY PHARMACIS T VISIT - HEART FAILURE TELEPHONE (AUDIO ONLY) CONSULT Referring Provider: Dr. Keene/ Dr. Waldron Clinic Location: [facility] Most recent cardiology visit: 10/11/24 Insurance: Commercial SUBJECTIVE/OBJECTIVE Magaly Yung is a 49 y.o. male contacted for HF management. Patient has HFrEF. Patient's PMH includes Problem List[1] Patient referred to clinic pharmacists for HFrEF GDMT optimization and CV risk reduction optimization with PSCK9i and GLP1. Patient was hospitalized for NSTEMI 10/02 - 10/04. At this time he was started on quite a few medications to treat his disease states which is new to him. He is getting the hang of taking multiple medications and at this point is not wanting to add more meds if he does not have to. He will be seeing Dr. Waldron again on 12/18. HF Management : HFrEF (EF <= 40%) Last TTE: EF 35 % (09/2024) NYHA Functional Class: [] I - No symptoms with ordinary activity [x] II - Mild symptoms with ordinary activity per discharge summary 09/2024 [] III - Symptoms with less than ordinary activity [] IV - Symptoms at rest GDMT (Guideline-Directed Medical Therapy): HFrEF: [x] ARNI / ACEi / ARB (Lisinopril 20 mg daily (target dose 20 to 40 mg once daily)) [x] Beta-stefan (Carvedilol 25 mg BID (target dose 25 mg BID for weight <85 kg and 50 mg BID for weight >85 kg)) [x] MRA (Spironolactone 25 mg daily (target dose 25 to 50 mg daily)) [x] SGLT2 inhibitor (Farxiga 10 mg daily) [x] Diuretic (as needed for congestion) (furosemide 40mg) [] Hydralazine/Isosorbide (persistently symptomatic -Stateless patients despite GDMT, NYHA class III-IV) Adherence: No missed doses Cost assessment: No issues obtaining medications Symptoms: None Last Clinic Vitals: BP Readings from Last 1 Encounters: 11/20/24 118/72 Estimated body mass index is 38.39 kg/m??? as calculated from the following: Height as of 10/11/24: 1.88 m (6' 2 ). Weight as of 10/11/24: 136 kg (299 lb). Pertinent Labs (date) A1C: Lab Results Component Value Date HGBA1C 6.8 (H) 10/02/2024 BMP: Lab Results Component Value Date K 4.4 10/17/2024 CREATININE 1.34 (H) 10/17/2024 EGFR 65.8 10/17/2024 LFTs: Lab Results Component Value Date ALT 28 10/17/2024 AST 16 10/17/2024 ALKPHOS 93 10/17/2024 FLP: Lab Results Component Value Date CHOL 211 (H) 10/02/2024 HDL 21 (L) 10/02/2024 LDLCALC 164 (H) 10/02/2024 TRIG 132 10/02/2024 ASSESSMENT HF: Currently on ACEI, beta stefan, MRA, SGLT2i and PRN furosemide. Denies s/sx of hypertension or hypotension. He does have commercial insurance so one future optimization could be switching his lisinopril to Entresto as it should be covered. This can be discussed following his appt with Dr. Waldron in December. - For now, continue current regimen - He is to have labs completed prior to visit with Dr. Waldron - CMP and lipid panel placed. Of note, patient is indicated for GLP1 for T2DM (most recent A1C of 6.8% - this is new), CV risk reduction + weight loss in setting of CAD. Additionally, he may need PCSK9i for further CV risk reduction. He has not yet had his follow up labs completed, so will assess following those resulting. I would anticipate both of those options needs to be explored and are indicated, but it may make sense to slow the pace of medication changes to improve patient understanding, increase patient buy in and ultimately support adherence to medications and shared decision making. Follow-up: not yet scheduled Next Cardiology Provider Visit: 12/18/24 Time Spent: 25 minutes total with 20 minutes spent in medical discussion with patient. PATIENT VERBALIZED UNDERSTANDING OF CARE PLAN: Yes PATIENT ADVISED TO CALL BACK WITH QUESTIONS, CONCERNS, OR CHANGE IN SYMPTOMS. Patient verbalized understanding of consult agreement between physician and PharmD: Yes Taco Spence PharmD, BCACP [facility] Cardiology 12/10/24 [1] Patient Active Problem List Diagnosis NSTEMI (non-ST elevated myocardial infarction) ([facility]) Primary hypertension HFrEF (heart failure with reduced ejection fraction) ([facility]) Obesity Tobacco use disorder Multi-vessel coronary artery stenosis Hyperlipidemia Coronary artery disease involving guidiville coronary artery of guidiville heart with unstable angina pectoris ([facility]) S/P coronary artery stent placement [facility] 11-20-2024 Note Spoke with patient a nd scheduled for visit on 12/02 at 2pm. Patient does live in [place] and is seen at the [facility], so will need to do telemedicine with him. Taco Spence PharmD, BCACP [facility] Cardiology 11/25/24 [facility] 11-20-2024 Note [facility] NSULT - NEW CONSULT 11/20/24 Referring Provider: Dr. Keene Clinic: [facility] Cardiology-- saw outpatient cardiology at Cardiology Magaly Yung is referred to clinic pharmacists for GLP initiation and lipid management (hx of CAD, HTN, HLD, HFrEF, obesity, LDL goal < 55). Electronic order received from patient's cardiology provider. Will call patient to schedule. Celine Levy, Mahendra [facility] Cardiology [facility] 11-20-2024 Note Cardiology I placed referral order to [place] cardiology pharmacist to help with lipid management and obesity management Patient has BMI of about 39 and has severe coronary disease and qualifies for semaglutide GLP-1 agonist based on SELECT trial Also he has severe hyperlipidemia and should have tight control with ApoB goal less than 60 or LDL goal less than 55 mg/dL He is indicated for addition of either ezetimibe or PCSK9 inhibitor Repeat labs and assess in outpatient follow up Mikael Keene MD radar repairer Interventional Cardiology [place] [facility] Pager: [phone] Diagnosis Plan 1. HFrEF (heart failure with reduced ejection fraction) ([facility]) Ambulatory referral to Cardiology Pharmacist 2. Multi-vessel coronary artery stenosis Ambulatory referral to Cardiology Pharmacist 3. Coronary artery disease involving guidiville coronary artery of guidiville heart with unstable angina pectoris ([facility]) Ambulatory referral to Cardiology Pharmacist 4. Primary hypertension Ambulatory referral to Cardiology Pharmacist 5. Tobacco use disorder Ambulatory referral to Cardiology Pharmacist 6. Class 2 severe obesity due to excess calories with serious comorbidity and body mass index (BMI) of 39.0 to 39.9 in adult ([facility]) Ambulatory referral to Cardiology Pharmacist 7. Mixed hyperlipidemia Ambulatory referral to Cardiology Pharmacist 8. 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 Use of blood products discussed with patient who consented to blood products. Plan discussed with attending. Additional Equipment Requests [facility] 10-28-2024 Note Cardiology I had heart team discussion with Dr. Valle from CT surgery. We personally reviewed the coronary angiogram together. Patient has ostial LAD 80% stenosis. His distal and apical LAD also have significant disease and Dr. Valle was concerned that it is a poor target for ROWELL to LAD bypass grafting. He has mid RCA intermediate stenosis and he has circumflex mild to moderate stenosis We elected to proceed with PCI LAD with possible PCI RCA as well I will order coronary angiogram and PCI LAD Right radial access: Patient is optimized on medical therapy for CAD and HFrEF Labs reviewed Diagnosis Plan 1. Primary hypertension Case Request Director Of Rehabilitation: Coronary angiography, Percutaneous coronary intervention 2. Multi-vessel coronary artery stenosis Case Request Director Of Rehabilitation: Coronary angiography, Percutaneous coronary intervention 3. HFrEF (heart failure with reduced ejection fraction) ([facility]) Case Request Director Of Rehabilitation: Coronary angiography, Percutaneous coronary intervention 4. Coronary artery disease of guidiville artery of guidiville heart with stable angina pectoris 5. Tobacco use disorder Case Request Director Of Rehabilitation: Coronary angiography, Percutaneous coronary intervention 6. Mixed hyperlipidemia Case Request Director Of Rehabilitation: Coronary angiography, Percutaneous coronary intervention 7. Class 2 severe obesity due to excess calories with serious comorbidity and body mass index (BMI) of 39.0 to 39.9 in adult ([facility]) Case Request Director Of Rehabilitation: Coronary angiography, Percutaneous coronary intervention 8. Coronary artery disease involving guidiville coronary artery of guidiville heart with unstable angina pectoris ([facility]) Case Request Director Of Rehabilitation: Coronary angiography, Percutaneous coronary intervention Lab on 10/17/2024 Component Date Value Ref Range Status Color, Urine 10/17/2024 Yellow Yellow, Light Yellow, Colorless Final Clarity, Urine 10/17/2024 Clear Clear Final pH, Urine 10/17/2024 6.0 5.0 - 8.0 pH Final Leukocytes, Urine 10/17/2024 Negative Negative Final Nitrite, Urine 10/17/2024 Negative Negative Final Protein, Urine 10/17/2024 Negative Negative mg/dL Final Glucose, Urine 10/17/2024 >=1000 (A) Normal mg/dL Final Bilirubin, Urine 10/17/2024 Negative Negative Final Specific [place], Urine 10/17/2024 1.015 1.010 - 1.030 Final Ketones, Urine 10/17/2024 Negative Negative mg/dL Final Blood, Urine 10/17/2024 Negative Negative Final Urobilinogen, Urine 10/17/2024 Normal Normal mg/dL Final ABO Grouping 10/17/2024 AB Final Rh Type 10/17/2024 POS Final Ab Scrn 10/17/2024 NEG Final Sodium 10/17/2024 138 136 - 145 mmol/L Final Potassium 10/17/2024 4.4 3.5 - 5.1 mmol/L Final Chloride 10/17/2024 103 98 - 107 mmol/L Final CO2 10/17/2024 29 21 - 31 mmol/L Final Anion Gap 10/17/2024 10 7 - 20 mmol/L Final BUN 10/17/2024 19 7 - 25 mg/dL Final Creatinine 10/17/2024 1.34 (H) 0.70 - 1.30 mg/dL Final BUN/Creatinine Ratio 10/17/2024 14.2 Final Glucose 10/17/2024 159 (H) 70 - 100 mg/dL Final Calcium 10/17/2024 9.6 8.6 - 10.3 mg/dL Final AST 10/17/2024 16 13 - 39 U/L Final ALT (SGPT) 10/17/2024 28 7 - 52 U/L Final Alkaline Phosphatase 10/17/2024 93 34 - 104 U/L Final Total Protein 10/17/2024 7.0 6.0 - 8.3 g/dL Final Albumin 10/17/2024 4.1 3.5 - 5.7 g/dL Final Total Bilirubin 10/17/2024 0.4 0.3 - 1.0 mg/dL Final eGFR 10/17/2024 65.8 >60.0 mL/min/1.73m*2 Final [facility]???s estimated glomerular filtration rate (eGFR) will no longer include consideration of race in its calculation. The National Kidney Foundation???s eGFR Task Force developed new recommendations for the estimation of the glomerular filtration rate in the [place] They recommend immediate implementation of the new equation refit without the race variable in all laboratories because the calculation does not include race. In addition to not including race in the calculation and reporting, it included diversity in its development, and has acceptable performance characteristics and potential consequences that do not disproportionately affect any one group of individuals. aPTT 10/17/2024 31.0 25.0 - 35.0 Seconds Final Clinical significance of the APTT is questionable in the presence of heparin. Protime 10/17/2024 14.3 12.3 - 14.8 Seconds Final INR 10/17/2024 1.11 (H) 0.90 - 1.10 Final ACCCP RECOMMENDED INR FOR WARFARIN THERAPY --- CONDITION INR PROPHYLAXIS OF VENOUS THROMBOSIS 2-3 (HIGH-RISK SURGERY) TREATMENT OF VENOUS THROMBOSIS 2-3 TREATMENT OF PULMONARY EMBOLISM 2-3 PREVENTION OF SYSTEMIC EMBOLISM: 2-3 ACUTE MYOCARDIAL INFARCTION TISSUE HEART VALVES VALVULAR HEART DISEASE ATRIAL FIBRILLATION RECURRENT SYSTEMIC EMBOLISM MECHANICAL HEART VALVE 2.5-3.5 FROM: ORAL ANTICOAGULANTS. MECHANISM OF ACTION, CLINICAL EFFECTIVENESS, AND OPTIMAL THERAPEUTIC RANGE. CHEST 1995;108:231S-246 (more content not included)... [facility] 10-11-2024 Note [facility] Note Reason for cardiology visit: Follow-up on coronary artery disease, ischemic cardiomyopathy and chronic heart failure, hypertension, and hyperlipidemia HPI: Magaly Yung is a 49 y.o. male who presented 09/30/2024 to [facility] with chest pain of 3 days duration associated with worsening shortness of breath, he was severely hypertensive on arrival and BNP was elevated. His echo showed ejection fraction of 15 to 20%. He was sent to [facility] for cardiac catheterization performed 10/02/2024 and showed severe multivessel coronary artery disease and ejection fraction 30% by LV gram with elevated LVEDP at 30 mmHg. On admission the patient was in acute heart failure and he was treated with diuresis and then started on guideline directed medical treatment. CT surgery was consulted and he is scheduled for CABG early next month. He states that he has been doing very well. He continues to lose weight. He denies any chest pain or shortness of breath at rest or with exertion. He denies orthopnea or paroxysmal nocturnal dyspnea or dizziness or palpitations or legs edema. He is following low-salt low-fat diet. He walks about 10 minutes every day without problems He underwent a modified treadmill stress test before discharge to evaluate functional capacity and symptoms with exertion and he did very well ROS: All systems were reviewed and they were negative except for the positive findings noted above in the history Past Medical History He has a past medical history of Cardiomegaly, CHF (congestive heart failure) (CMS/HCC), Coronary artery disease, Hyperlipidemia, Hypertension, Myocardial infarction (CMS/HCC), NSTEMI (non-ST elevated myocardial infarction) ([facility]), Obesity, and Pulmonary edema. Surgical History He has a past surgical history that includes Cardiac catheterization (10/02/2024). Social History He reports that he has quit smoking. His smoking use included cigarettes. His smokeless tobacco use includes chew. No history on file for alcohol use and drug use. Family History Family History Problem Relation Name Age of Onset Coronary artery disease Mother 45 Coronary artery disease Brother 42 Allergies Penicillins Medications Current Outpatient Medications: aspirin 81 mg chewable tablet, Chew 1 tablet (81 mg) in the morning for 96 doses., Disp: 96 tablet, Rfl: 0 atorvastatin (Lipitor) 40 mg tablet, Take 1 tablet (40 mg) by mouth at bedtime for 96 doses., Disp: 96 tablet, Rfl: 0 carvedilol (Coreg) 25 mg tablet, Take 1 tablet (25 mg) by mouth two times daily for 192 doses., Disp: 192 tablet, Rfl: 0 dapagliflozin propanediol (Farxiga) 10 mg, Take 1 tablet (10 mg) by mouth in the morning for 96 doses., Disp: 96 tablet, Rfl: 0 furosemide (Lasix) 40 mg tablet, Take 1 tablet (40 mg) by mouth two times daily., Disp: 60 tablet, Rfl: 2 isosorbide mononitrate ER (Imdur) 30 mg 24 hr tablet, Take 1 tablet (30 mg) by mouth in the morning for 96 doses. Do not crush or chew., Disp: 96 tablet, Rfl: 0 lisinopril 20 mg tablet, Take 1 tablet (20 mg) by mouth in the morning for 96 doses., Disp: 96 tablet, Rfl: 0 spironolactone (Aldactone) 25 mg tablet, Take 1 tablet (25 mg) by mouth in the morning for 96 doses., Disp: 96 tablet, Rfl: 0 metoprolol tartrate (Lopressor) 50 mg tablet, Take 25 mg by mouth two times daily., Disp: , Rfl: Last Recorded Vitals Visit Vitals BP 106/72 (BP Location: Right arm, Patient Position: Sitting) Pulse 68 Ht 1.88 m (6' 2 ) Wt 136 kg (299 lb) SpO2 94% BMI 38.39 kg/m??? Smoking Status Former BSA 2.66 m??? Physical Examination: GENERAL: alert and oriented x3, well developed, in no acute distress. HEAD: atraumatic, normocephalic. EYES: LAILA, EOMI. NECK: trachea midline, no JVD present, no carotid bruits present. CARDIAC: S1, S2 present. RRR. No murmur, rubs, or gallops. RESPIRATORY: CTAB, no increased effort of breathing, no rales, rhonchi, or wheezing. ABDOMEN: soft, nontender, nondistended. EXTREMITIES: no lower extremity edema, peripheral pulses are 2+ bilaterally. No rash/skin discoloration present. NEURO: strength/sensation equal and symmetric in bilateral upper and lower extremities. PSYCH: appropriate mood, affect, and judgement. Labs: CBC: Lab Results Component Value Date WBC 10.55 10/03/2024 RBC 5.67 10/03/2024 HGB 15.9 10/03/2024 HCT 49.7 10/03/2024 MCV 87.7 10/03/2024 RDW 14.0 10/03/2024 PLT 177 10/03/2024 PT/INR No results found for: PT , INR BMP: Lab Results Component Value Date NA 141 10/03/2024 K 3.7 10/03/2024 CL 102 10/03/2024 BUN 21 10/03/2024 CREATININE 1.17 10/03/2024 EGFR 77.4 10/03/2024 LFTs: Lab Results Component Value Date BILITOT 0.6 10/02/2024 ALKPHOS 80 10/02/2024 AST 17 10/02/2024 ALT 22 10/02/2024 ALBUMIN 4.3 10/02/2024 PROT 7.0 10/02/2024 Lipids: Lab Results Component Value Date CHOL 211 (H) 10/03/19 (more content not included)... [facility] 10-04-2024 Note Hospital Medicine Discharge Summary Final Discharge Diagnosis: Severe multivessel coronary artery disease Acute decompensated systolic heart failure with reduced ejection fraction, NYHA class II Tobacco use disorder Essential hypertension Mixed hyperlipidemia Class II obesity Admission Diagnosis: NSTEMI (non-ST elevated myocardial infarction) ([facility]) [I21.4] Hospital course: Magaly Yung is an 49 y.o. ld white male admitted from [facility] as a direct transfer where he presented with intermittent chest pains described as anterior chest dull to pressure-like associated with dyspnea radiating to left pain started a week back pain unrelated to activity but 4 days back got worse so he decided to go to the ER where he was admitted to [facility]. Patient denies any history of hypertension coronary artery disease congestive heart failure diabetes he is on no medication he has history of tobacco dependence for 22 years smoked a pack per day and quit 2 weeks back he has not seen a physician. He has a strong family history of coronary artery disease his brother and his mother both in their 40s with coronary artery disease and is father who is 70 years old status post 7 stents patient does have progressive dyspnea on exertion which he attributed and thought was due to tobacco use his BNP done at [facility] was 448 BUN was 15.9 creatinine 1.13 and GFR was more than 60 his troponin was 25.9 he had an echo done on 09/30/2024 which showed moderate concentric left ventricular hypertrophy severely reduced left ventricular systolic function with global hypokinesia and left ventricular ejection fraction was 15 to 20% grade 3 left ventricular diastolic dysfunction EKG done showed normal sinus rhythm with nonspecific T wave changes he was noted to have elevated blood pressure and was started on lisinopril Coreg Imdur. 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 Cardiology was consulted. Cardiac cath was performed on 10/02, it showed severe multivessel coronary artery disease, LVEDP 30. Patient was continued on IV diuresis, CT surgery was consulted. Patient is being evaluated for CABG outpatient. TTE 10/03 showed EF 30 to 35%, grade 3 severe diastolic dysfunction, diffuse global hypokinesis. Patient is started on GDMT, discharged in stable condition. He is advised close follow-up with cardiology and CT surgery after discharge. Discussed in detail lifestyle modification with the patient, both patient and expressed understanding. Surgical, Invasive or Diagnostic Procedures Done During Admission: Cardiac Cath Consultations During Admission: Cardiology and CT Surgery Dear MD Hernández Lance is advised to follow up with you within 1-2 weeks. Items to follow up in ambulatory setting: Outpatient SLEEP STUDY arranged as soon as possible Follow-up with: Cardiology and CT Surgery Scheduled appointments: Future Appointments Date Time Provider Department Center 10/11/2024 2:40 PM Essence Waldron MD [facility] Your medication list START taking these medications Instructions Last Dose Given Next Dose Due aspirin 81 mg chewable tablet Start taking on: October 05, 2024 Chew 1 tablet (81 mg) in the morning for 96 doses. atorvastatin 40 mg tablet Commonly known as: Lipitor Take 1 tablet (40 mg) by mouth at bedtime for 96 doses. carvedilol 25 mg tablet Commonly known as: Coreg Take 1 tablet (25 mg) by mouth two times daily for 192 doses. dapagliflozin propanediol 10 mg Commonly known as: Farxiga Start taking on: October 05, 2024 Take 1 tablet (10 mg) by mouth in the morning for 96 doses. furosemide 40 mg tablet Commonly known as: Lasix Take 1 tablet (40 mg) by mouth two times daily. isosorbide mononitrate ER 30 mg 24 hr tablet Commonly known as: Imdur Start taking on: October 05, 2024 Take 1 tablet (30 mg) by mouth in the morning for 96 doses. Do not crush or chew. lisinopril 20 mg tablet Start taking on: October 05, 2024 Take 1 tablet (20 mg) by mouth in the morning for 96 doses. spironolactone 25 mg tablet Commonly known as: Aldactone Start taking on: October 05, 2024 Take 1 tablet (25 mg) by mouth in the morning for 96 doses. Where to Get Your Medications These medications were sent to [facility] - [address] [place] [address] [address] [facility] [place] [address], [facility] [id number] aspirin 81 mg chewable tablet atorvastatin 40 mg tablet carvedilol 25 mg tablet dapagliflozin propanediol 10 mg furosemide 40 mg tablet isosorbide mononitrate ER 30 mg 24 hr tablet lisinopril 20 mg tablet spironolactone 25 mg tablet Magaly is allergic to penicillins. Disposition: Home or Self Care () Discharge Condition: Good Code Status: Full Code Diagnostic Results Hematology: Results from last 7 days Lab Units 10/03/24 0418 10/02/24 1953 (more content not included)... [facility] 10-04-2024 Note Stop bang score of 3 , Sleep referral ordered for OP [facility] 10-04-2024 Note Cardiothoracic Surge ry Progress Note 10/04/2024 Room: [address] [place] [address] Bobo Yung is a 49 y.o. male with PMH of smoker, obesity, strong family history of CAD who presented to [facility] as a direct transfer where he was experiencing intermittent chest pain, described as anterior chest dull to pressure-like associated with dyspnea radiating to left. [facility] labs remarkable for BNP 448, BUN 15.9, Creatinine 1.13, High Sensitivity Troponin 25.9. Echocardiogram performed and showed moderate concentric left ventricular hypertrophy severely reduced left ventricular systolic function with global hypokinesia and left ventricular ejection fraction of 15-20%, grade 3 left ventricular diastolic dysfunction. EKG showed normal sinus rhythm with nonspecific T wave changes. BP was elevated and he was started on lisinopril, Coreg, and Imdur. 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 He was transferred to [facility] for cardiac catherization. Underwent cardiac cath yesterday with Dr. Mikael Keene and was found to have severe multivessel CAD. CT Surgery was consulted for surgical evaluation and recommendations. Interval: Sitting in chair. Remains on heparin infusion. Denies chest pain, SOB, fever or chills. Objective Patient Vitals for the past 24 hrs: BP Temp Temp src Pulse Resp SpO2 Weight 10/04/24 0904 -- -- -- 68 -- -- -- 10/04/24 0852 147/75 -- -- 71 18 92 % -- 10/04/24 0456 -- -- -- -- -- -- (!) 137 kg (302 lb 6.4 oz) 10/04/24 0410 124/70 36.3 ???C (97.3 ???F) Temporal 68 21 94 % -- 10/04/24 0010 112/67 36.4 ???C (97.5 ???F) Temporal 62 19 98 % -- 10/03/24 2131 (!) 140/92 -- -- 64 17 98 % -- 10/03/24 2000 134/87 36.5 ???C (97.7 ???F) Temporal 63 17 96 % -- 10/03/24 1630 133/80 36.5 ???C (97.7 ???F) Temporal 59 21 94 % -- 10/03/24 1349 151/84 -- -- 67 16 91 % -- 10/03/24 1214 (!) 170/102 36.5 ???C (97.7 ???F) Temporal 75 21 93 % -- Physical Exam Vitals reviewed. Constitutional: General: He is not in acute distress. Appearance: Normal appearance. He is normal weight. He is not ill-appearing. HENT: Head: Normocephalic and atraumatic. Mouth/Throat: Mouth: Mucous membranes are moist. Pharynx: Oropharynx is clear. Eyes: Extraocular Movements: Extraocular movements intact. Conjunctiva/sclera: Conjunctivae normal. Pupils: Pupils are equal, round, and reactive to light. Neck: Vascular: No carotid bruit. Cardiovascular: Rate and Rhythm: Normal rate and regular rhythm. Pulses: Normal pulses. Heart sounds: Normal heart sounds. No murmur heard. Pulmonary: Effort: Pulmonary effort is normal. No respiratory distress. Breath sounds: Normal breath sounds. Abdominal: General: Abdomen is flat. There is no distension. Palpations: Abdomen is soft. Musculoskeletal: General: Normal range of motion. Cervical back: Normal range of motion. Right lower leg: No edema. Left lower leg: No edema. Skin: General: Skin is warm and dry. Capillary Refill: Capillary refill takes less than 2 seconds. Coloration: Skin is not pale. Neurological: General: No focal deficit present. Mental Status: He is alert and oriented to person, place, and time. Mental status is at baseline. Psychiatric: Mood and Affect: Mood normal. Behavior: Behavior normal. Thought Content: Thought content normal. Judgment: Judgment normal. Lab Results Component Value Date NA 141 10/03/2024 K 3.7 10/03/2024 CL 102 10/03/2024 ANIONGAP 13 10/03/2024 BUN 21 10/03/2024 CREATININE 1.17 10/03/2024 CALCIUM 9.2 10/03/2024 MG 2.3 10/03/2024 Lab Results Component Value Date BILITOT 0.6 10/02/2024 ALKPHOS 80 10/02/2024 AST 17 10/02/2024 ALT 22 10/02/2024 PROT 7.0 10/02/2024 ALBUMIN 4.3 10/02/2024 Lab Results Component Value Date WBC 10.55 10/03/2024 RBC 5.67 10/03/2024 HGB 15.9 10/03/2024 HCT 49.7 10/03/2024 PLT 177 10/03/2024 NRBC 0.0 10/02/2024 Cardiac Catherization 10/04/2024: Hemodynamic Data: LV: 158/ LVEDP 30 mmHg AO: 151/93 (118) mmHg Left Ventriculogram: Global hypokinesis with EF 30% and mild to moderate MR Coronary Angiogram: Left main: the left main is a large vessel and is patent LAD: the LAD is a large vessel. The proximal LAD has a focal 70% stenosis and an adjacent area of aneurysm. The mid LAD is patent. The distal LAD has diffuse disease with diffuse 70% stenosis and tapering to 99% stenosis at the apex. The diagonal branches are patent. LCX: The left circumflex is a large vessel the proximal circumflex has intermediate stenosis which appears to be 50% by angiogram although severity is hard to estimate because of significant tortuosity and vessel overlap. The obtuse marginal branches are patent. RCA: The RCA is a large vessel and is dominant. The mid to distal RCA has a focal 70% stenosis. The right PDA is patent. There is a right posterolateral artery branch which is occluded which is seen f (more content not included)... [facility] 10-04-2024 Note [facility] CARDIOLOGY INPAT IENT PROGRESS NOTE Reason for follow up: Angina, three-vessel CAD PMI: Magaly Yung is a 49 y.o. male with recently diagnosed severe multivessel CAD and acute heart failure with preserved EF. PMH of chronic tobacco use having quit 2 weeks ago, obesity, strong family history of CAD (brother and mother in their 40s and father with CAD in mid 60s). Prior to this admission he was taking no medications at all. 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 10/02/2024 he was transferred from [facility] for non-STEMI with angina and acute heart failure with preserved EF. Complaining of intermittent dull to pressure-like anterior chest discomfort associated with dyspnea radiating to left arm. Over the past 2 months patient had noticed gradually worsening BERNAL and the dull midsternal prssure to left arm then gradually worsening LE edema. At [facility] labs remarkable for BNP 448, BUN 15.9, Creatinine 1.13, High Sensitivity Troponin 25.9, later normalized. Echocardiogram found EF 15-20% with grade 3 LVDD, moderate concentric LVH and global hypokinesis. EKG with sinus rhythm and nonspecific ST-T wave changes. At [facility], repeat echocardiogramfound [facility] found severe multivessel CAD and CT surgery evaluated him, recommending CABG x 3, noting patient clinically stable and can discharge home on GDMT and return for CABG at future date, tentatively 10/21/2024. Patient was discharged home Subjective Patient evaluated at bedside with present. He has been minimally active but is feeling much better with no chest discomfort, SOB, BERNAL, lightheadedness, palpitations, abdominal distention or lower extremity edema. They are nervous about dischargng home. He had sub maximal treadmill stress test with no ischemia. Tele: SR ALLERGIES Allergies Allergen Reactions Penicillins Anaphylaxis CURRENT MEDS aspirin, 81 mg, oral, Daily atorvastatin, 40 mg, oral, Nightly carvedilol, 25 mg, oral, BID dapagliflozin propanediol, 10 mg, oral, Daily furosemide, 60 mg, intravenous, q12h heparin (porcine), 5,000 Units, intravenous, Once isosorbide mononitrate ER, 30 mg, oral, Daily lisinopril, 20 mg, oral, Daily Oxygen Therapy, , inhalation, Continuous spironolactone, 25 mg, oral, Daily heparin, 0-28 Units/kg/hr, Last Rate: 16 Units/kg/hr (10/04/24 0628) PRN medications: acetaminophen, albuterol, nitroglycerin Objective Patient Vitals for the past 24 hrs: BP Temp Temp src Pulse Resp SpO2 Weight 10/04/24 0904 -- -- -- 68 -- -- -- 10/04/24 0852 147/75 -- -- 71 18 92 % -- 10/04/24 0456 -- -- -- -- -- -- (!) 137 kg (302 lb 6.4 oz) 10/04/24 0410 124/70 36.3 ???C (97.3 ???F) Temporal 68 21 94 % -- 10/04/24 0010 112/67 36.4 ???C (97.5 ???F) Temporal 62 19 98 % -- 10/03/24 2131 (!) 140/92 -- -- 64 17 98 % -- 10/03/241999 134/87 36.5 ???C (97.7 ???F) Temporal 63 17 96 % -- 10/03/24 1630 133/80 36.5 ???C (97.7 ???F) Temporal 59 21 94 % -- 10/03/24 1349 151/84 -- -- 67 16 91 % -- 10/03/24 1214 (!) 170/102 36.5 ???C (97.7 ???F) Temporal 75 21 93 % -- BP 147/75 Pulse 68 Temp 36.3 ???C (97.3 ???F) (Temporal) Resp 18 Ht 1.89 m (6' 2.41 ) Wt (!) 137 kg (302 lb 6.4 oz) SpO2 92% BMI 38.40 kg/m??? Wt Readings from Last 3 Encounters: 10/04/24 (!) 137 kg (302 lb 6.4 oz) General: Awake, alert, appropriate mood / affect, NAD Eyes: anicteric sclera. Non-injected conjunctiva. No xanthelasmas Neck: No elevated JVP. No carotid bruit Pulm: No increased work of breathing. Breath sounds clear to ascultation bilaterally with no wheeze, crackles or rhonchi Cards: HRRR , NL S1, S2. No S3 or S4 gallop. Murmur: none Abd: Soft, Nontender, physiologic bowel sounds are present Extr: Lower extremity edema: none. DP pulses present bilaterally Skin: warm, dry, well perfused Neuro: A&Ox3, No gross deficits Hematology: Results from last 7 days Lab Units 10/03/24 0418 10/02/24 1953 10/02/24 1245 10/02/24 0358 WBC AUTO 10*3/uL 10.55 -- -- 13.74* HEMOGLOBIN g/dL 15.9 -- -- 16.2 HEMATOCRIT % 49.7 -- -- 50.7* MCV fL 87.7 -- -- 86.4 PLATELETS AUTO 10*3/uL 177 194 < > 181 < > = values in this interval not displayed. Chemistry: Results from last 7 days Lab Units 10/03/24 0922 10/02/24 0358 SODIUM mmol/L 141 139 POTASSIUM mmol/L 3.7 3.4* CHLORIDE mmol/L 102 102 CO2 mmol/L 30 29 BUN mg/dL 21 18 CREATININE mg/dL 1.17 1.11 GLUCOSE mg/dL 122* 181* MAGNESIUM mg/dL 2.3 -- CALCIUM mg/dL 9.2 9.2 Results from last 7 days Lab Units 10/02/24 0358 AST U/L 17 ALT U/L 22 ALK PHOS U/L 80 BILIRUBIN TOTAL mg/dL 0.6 Historical Values: (Includes values prior to this admission) Lab Results Component Value Date TSH 3.25 10/02/2024 HDL 21 (L) 10/02/2024 LDL 190 10/02/2024 No results found for: [id number] , IRON , TIBC , C3 , C4 , TALA , CANCA , ASO , PSA , CEA , CA125 , CA1 (more content not included)... [facility] 10-03-2024 Note Continue lisinopril. [facility] 10-03-2024 Note S/p cardiac cath 10/02 [facility] 10-03-2024 Note Patient has a smokin g history of more than 20 pack years a day. [facility] 10-03-2024 Note NYHA class II Continue continue IV Lasix Continue lisinopril, Coreg, Aldactone, Farxiga [facility] 10-03-2024 Note Class II obesity [facility] 10-03-2024 Note Cardiac catheterizat ion 10/02 showed multivessel disease, LVEDP 30 CT surgery consulted for CABG evaluation [facility] 10-03-2024 Note Hospital Medicine Daily Progress Note - 10/03/2024 1:24 PM; Room: [address] [place] [address] Admission: 10/02/2024 1:50 AM; Length of stay: 1 days THE HOSPITALIST TEAM PREFERS TO USE [employer] FOR NON-URGENT COMMUNICATION 7AM-7PM. IF I DO NOT RESPOND WITHIN 20 MINUTES OR URGENT MATTERS, PLEASE CALL THROUGH THE DIRECTOR HOME. FROM 7PM-7AM, PLEASE PAGE [phone](COVR). Code Status: Full Code Barriers to Discharge: IV diuresis Expected Discharge Date: 1 to 2 days Discharge Destination: home Overview Patient is seen for evaluation and management of chest pain, coronary artery disease, acute heart failure with reduced ejection fraction. Subjective Patient was seen and examined at bedside this morning. He was alert awake and oriented. Patient reported that his breathing has improved. Patient satting well on room air, denies any chest pain/chest discomfort. Physical Exam Visit Vitals BP (!) 170/102 (BP Location: Right arm, Patient Position: Lying) Pulse 75 Temp 36.5 ???C (97.7 ???F) (Temporal) Resp 21 Intake/Output Summary (Last 24 hours) at 10/03/2024 1324 Last data filed at 10/03/2024 1236 Gross per 24 hour Intake 841.94 ml Output 555 ml Net 286.94 ml Physical Exam Constitutional: Appearance: Normal appearance. He is obese. Cardiovascular: Rate and Rhythm: Normal rate and regular rhythm. Pulses: Normal pulses. Heart sounds: Normal heart sounds. Pulmonary: Effort: Pulmonary effort is normal. Breath sounds: Normal breath sounds. Neurological: Mental Status: He is alert. Estimated body mass index is 38.35 kg/m??? as calculated from the following: Height as of this encounter: 1.89 m (6' 2.41 ). Weight as of this encounter: 137 kg (302 lb). Assessment and Plan Assessment & Plan Coronary artery disease of [place] artery of [place] heart with stable angina pectoris Cardiac catheterization 10/02 showed multivessel disease, LVEDP 30 CT surgery consulted for CABG evaluation NSTEMI (non-ST elevated myocardial infarction) ([facility]) S/p cardiac cath 10/02 Primary hypertension Continue lisinopril. HFrEF (heart failure with reduced ejection fraction) ([facility]) NYHA class II Continue continue IV Lasix Continue lisinopril, Coreg, Aldactone, Farxiga Obesity Class II obesity Tobacco use disorder Patient has a smoking history of more than 20 pack years a day. VTE Prophylaxis: IV heparin Scheduled Meds aspirin, 81 mg, oral, Daily atorvastatin, 40 mg, oral, Nightly carvedilol, 25 mg, oral, BID dapagliflozin propanediol, 10 mg, oral, Daily furosemide, 60 mg, intravenous, q12h heparin (porcine), 5,000 Units, intravenous, Once isosorbide mononitrate ER, 30 mg, oral, Daily lisinopril, 20 mg, oral, Daily Oxygen Therapy, , inhalation, Continuous spironolactone, 25 mg, oral, Daily heparin, 0-28 Units/kg/hr, Last Rate: 16 Units/kg/hr (10/03/24 1236) Pertinent Investigations Hematology: Results from last 7 days Lab Units 10/03/24 0418 10/02/24 1953 10/02/24 1245 10/02/24 0358 WBC AUTO 10*3/uL 10.55 -- -- 13.74* HEMOGLOBIN g/dL 15.9 -- -- 16.2 HEMATOCRIT % 49.7 -- -- 50.7* MCV fL 87.7 -- -- 86.4 PLATELETS AUTO 10*3/uL 177 194 < > 181 < > = values in this interval not displayed. Chemistry: Results from last 7 days Lab Units 10/03/24 0922 10/02/24 0358 SODIUM mmol/L 141 139 POTASSIUM mmol/L 3.7 3.4* CHLORIDE mmol/L 102 102 CO2 mmol/L 30 29 BUN mg/dL 21 18 CREATININE mg/dL 1.17 1.11 GLUCOSE mg/dL 122* 181* MAGNESIUM mg/dL 2.3 -- CALCIUM mg/dL 9.2 9.2 Results from last 7 days Lab Units 10/02/24 0358 AST U/L 17 ALT U/L 22 ALK PHOS U/L 80 BILIRUBIN TOTAL mg/dL 0.6 Historical Values: (Includes values prior to this admission) Lab Results Component Value Date TSH 3.25 10/02/2024 HDL 21 (L) 10/02/2024 LDL 190 10/02/2024 No results found for: [id number] , IRON , TIBC , C3 , C4 , TALA , CANCA , ASO , PSA , CEA , CA125 , CA199 , AFP , CA153 Imaging Pulmonary function testing Consuelo Fernandes, COMMERCIAL LEASING MANAGER 10/03/2024 12:49 PM Bedside Spirometry uploaded into [employer] Vascular US lower extremity vein mapping bilateral Narrative: Procedure: The greater saphenous vein and small saphenous vein was evaluated in its entirety. It was examined for compressibility and measured in the transverse view. Impression: Bilateral: Right: Great saphenous vein appeared greater than 0.25 cm of entire leg. Small saphenous vein appeared less than 0.20 cm entire calf. Left: Great saphenous vein appeared greater than 0.25 cm of entire leg. Small saphenous vein appeared greater than 0.25 cm of entire calf. Vascular US carotid artery duplex bilateral Narrative: Procedure: The carotid arteries, including common carotid, internal and external carotid artery were evaluated bilaterally. This was done using real-time imaging with velocity measurement, color Doppler, and spectral analysis. The vertebral arteries were evaluated bilaterall (more content not included)... [facility] 10-03-2024 Note Bedside Spirometry u ploaded into [employer]. [facility] 10-03-2024 Note 10/03/24 1200 STOP-Bang Questionnaire Do you snore loudly? 0 Do you often feel tired or fatigued after your sleep? 0 Has anyone ever observed you stop breathing in your sleep? 0 Do you have or are you being treated for high blood pressure? 1 Recent BMI (Calculated) 38.4 Is BMI greater than 35 kg/m2? 1=Yes Age older than 50 years old? 0=No Is your neck circumference greater than 17 inches (Male) or 16 inches (Female)? 0 Gender - Male 1=Yes STOP-Bang Total Score 3 [facility] 10-03-2024 Note ---- Attestation signed by Marko Smith MD at 10/03/2024 1:56 PM I personally spoke with and examined Mr. Yung this morning without Dr. Montero and agree with his note. He has acute systolic heart failure due to CAD, ischemic cardiomyopathy. CT surgery is evaluating. Clinically he is doing much better and is no longer SOB. 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 ---- Cardiology Progress Note HPI: Magaly Yung is a 49 y.o. male with insignificant medical history, other than tobacco use disorder for 20 years, presenting from [facility] with chest pain Patient reports that he has been endorsing continued chest pain of 1 week duration, it become worse yesterday so he went to [facility]. Associated with diaphoresis, feels like a pressure, 5 out of 10, no radiation. Patient has a brother that with heart attack at the age of 42, mother at age of 47, at [facility] patient echo showed heart failure with reduced ejection fraction with EF of 15 to 20%, BNP 448. Troponin 25.9. EKG with a Q wave in lead III otherwise no ST/T wave changes. Subjective Subjective: Patient was seen and examined at the bedside, no overnight event, breathing well on nasal cannula. Having no chest pain. Objective Current Facility-Administered Medications: acetaminophen (Tylenol) tablet 650 mg, 650 mg, oral, q6h PRN, Rao Garcia MD albuterol 90 mcg/actuation inhaler 2 puff, 2 puff, inhalation, q6h PRN, Rao Garcia MD aspirin chewable tablet 81 mg, 81 mg, oral, Daily, Rao Garcia MD, 81 mg at 10/02/24940 atorvastatin (Lipitor) tablet 40 mg, 40 mg, oral, Nightly, Rao Garcia MD, 40 mg at 10/02/242106 carvedilol (Coreg) tablet 25 mg, 25 mg, oral, BID, Rao Garcia MD, 25 mg at 10/02/242106 dapagliflozin propanediol (Farxiga) tablet 10 mg, 10 mg, oral, Daily, Rao Garcia MD, 10 mg at 10/02/24940 furosemide (Lasix) injection 40 mg, 40 mg, intravenous, q12h, Rao Garcia MD, 40 mg at 10/03/24 0224 heparin (porcine) injection 5,000 Units, 5,000 Units, intravenous, Once, Willian Ac MD heparin infusion 100 units/mL in D5W, 0-28 Units/kg/hr, intravenous, Continuous, Willian Ac MD, Last Rate: 22.4 mL/hr at 10/03/24 0709, 16 Units/kg/hr at 10/03/24 0709 isosorbide mononitrate ER (Imdur) 24 hr tablet 30 mg, 30 mg, oral, Daily, Rao Garcia MD, 30 mg at 10/02/24 0941 lisinopril tablet 20 mg, 20 mg, oral, Daily, Rao Garcia MD, 20 mg at 10/02/24 0941 nitroglycerin (Nitrostat) SL tablet 0.4 mg, 0.4 mg, sublingual, q5 min PRN, Rao Garcia MD Oxygen Therapy, , inhalation, Continuous, Rao Garcia MD, Oxygen Off at 10/02/24 0245 spironolactone (Aldactone) tablet 25 mg, 25 mg, oral, Daily, Rao Garcia MD, 25 mg at 10/02/24 0941 Objective: Patient Vitals for the past 24 hrs: BP Temp Temp src Pulse Resp SpO2 Weight 10/03/24 0812 (!) 156/92 36.1 ???C (97 ???F) Temporal 68 18 97 % -- 10/03/24 0500 -- -- -- -- -- -- (!) 137 kg (302 lb) 10/03/24 0418 126/80 36.1 ???C (97 ???F) Temporal 68 21 95 % -- 10/02/24 2350 136/73 36.4 ???C (97.5 ???F) Temporal 64 19 95 % -- 10/02/24 2106 140/84 -- -- 71 15 93 % -- 10/02/24 2101 -- -- -- -- -- -- (!) 139 kg (305 lb 9.6 oz) 10/02/24 1945 (!) 150/92 36.4 ???C (97.5 ???F) Temporal 76 21 97 % -- 10/02/24 1730 (!) 155/95 -- -- 68 17 -- -- 10/02/24 1700 (!) 150/98 -- -- 78 19 -- -- 10/02/24 1630 (!) 144/95 -- -- 67 21 -- -- 10/02/24 1615 (!) 151/93 -- -- 71 18 -- -- 04/16/25 1600 153/78 -- -- 79 23 96 % -- 10/02/24 1545 (!) 143/93 -- -- 70 20 95 % -- 10/02/24 1531 (!) 133/111 -- -- 76 18 95 % -- 10/02/24 1530 (!) 133/111 -- -- -- -- -- -- 10/02/24 1519 -- -- -- -- -- 98 % -- 10/02/24 1518 (!) 150/96 -- -- 72 19 98 % -- 10/02/24 1453 -- -- -- -- -- 98 % -- 10/02/24 1453 177/86 -- -- 71 18 98 % -- 10/02/24 1238 141/79 36.5 ???C (97.7 ???F) Temporal 65 17 97 % -- 10/02/24 1200 -- -- -- -- -- 96 % -- Physical Examination: Physical Exam Constitutional: General: He is not in acute distress. Appearance: Normal appearance. He is normal weight. HENT: Mouth/Throat: Mouth: Mucous membranes are moist. Pharynx: Oropharynx is clear. Cardiovascular: Rate and Rhythm: Normal rate and regular rhythm. Pulses: Normal pulses. Heart sounds: Normal heart sounds. No murmur heard. Pulmonary: Effort: No respiratory distress. Breath sounds: No stridor. Abdominal: General: There is no distension. Tenderness: There is no abdominal tenderness. Musculoskeletal: Right lower leg: Edema present. Left lower leg: Edema present. Skin: Coloration: Skin is not jaundiced or pale. Neurological: General: No focal deficit present. Mental (more content not included)... [facility] 10-02-2024 Note Patient admitted to the hospital for: NSTEMI. Chart echo noted in the admit progress notes, from 09/30/2024 [facility] reports: EF 15-20 %. Current echo report qualifies for Cardiac Rehab services per CMS eligibility criteria. A Cardiac Rehab referral diagnosis and code must also meet CMS criteria. Desiree Tyler, RN, BSN Cardiology Outpatient Coordinator Cardiopulmonary Rehab [facility] 10-02-2024 Note Patient: Magaly Yung Procedure Information Date/Time: 10/02/24 1530 Procedures: Coronary angiography Right heart cath Location: [facility] PIPE [employer]SEM[employer] 2 [facility] / [facility] (Cath) Providers: Mikael Keene MD Clinical information reviewed: Tobacco Allergies Meds Med Hx Surg Hx Fam Hx Soc Hx Physical Exam Airway Mallampati: II TM distance: <3 FB Neck ROM: full Cardiovascular - normal exam Rhythm: regular Dental Pulmonary - normal exam Abdominal - normal exam Anesthesia Plan ASA 3 other (Conscious sedation) Anesthetic plan and risks discussed with patient. Use of blood products discussed with patient who consented to blood products. Additional Equipment Requests [facility] 10-02-2024 Note 10/02/24 1201 Admission Assessment Questions Verify insurance with patient Yes (Anne AHUMADA) Do you understand medical disease or what brought you into the hospital? Yes Who is your current PCP? Merrill Hernández MD Can I schedule a follow up appointment for you at the time of discharge? No Do you understand why you are taking your current medications? No (Patient was not on previous home medications) Are you taking your medications as prescribed? No Did patient provide teach back? No Pharmacy Bedside Delivery Status Interested Does the patient have a client manager assigned to them through their insurance? No Living Arrangement (Current/Prior to Hospitalization) Private residence (lives at home with and 10 year old) Does the patient have history of HHC or SNF? No Assistive Device Not applicable Patient's goal for discharge home Was patient reminded that goal for discharge is 11am? Yes Does the patient have transportation at discharge? Yes Type of Residence Private residence Is PT/OT appropriate? No Is PT/OT ordered? No Is SW consult appropriate? No Is SW consult ordered? No Do you understand the benefits of MyChart? Yes Were you able to send link and activate MyChart? No Write sent email to [facility] registration about missing insurance in Epic. [facility] 10-02-2024 Note Cycle troponin nitra tha Coreg statin aspirin with his blood pressure being high around 188/92 and since he is chest pain free we will hold IV heparin cardiology to see patient low-fat low-salt diet suspect underlying sleep apnea also adding to persistent hypertension patient was counseled about lifestyle modification and encouraged to continue refraining from tobacco. With heart failure with reduced EF and NSTEMI anticipate left heart cath [facility] 10-02-2024 Note We will check trigly cerides/lipid profile if triglycerides below 300 consider GLP-1 inhibitor discussed with patient about diet management dietary consult already in order for CHF and for obesity [facility] 10-02-2024 Note Optimize guideline d irected medical therapy including Coreg lisinopril Aldactone and Farxiga consider changing DAVEY inhibitor to ARNI monitor I's and O's salt restricted diet core CHF measures in place [facility] 10-02-2024 Note As above also would recommend outpatient sleep study [facility] 10-02-2024 Note Hospital Medicine History and Physical 10/02/2024 2:45 AM THE HOSPITALIST TEAM PREFERS TO USE [facility] CHAT FOR NON-URGENT COMMUNICATION 7AM-7PM. IF I DO NOT RESPOND WITHIN 20 MINUTES OR URGENT MATTERS, PLEASE CALL THROUGH THE DIRECTOR HOME. FROM 7PM-7AM, PLEASE PAGE [phone](COVR). Chief Complaint No chief complaint on file. History of Present Illness Magaly Yung is an 49 y.o. ld white male admitted from [facility] as a direct transfer where he presented with intermittent chest pains described as anterior chest dull to pressure-like associated with dyspnea radiating to left pain started a week back pain unrelated to activity but 4 days back got worse so he decided to go to the ER where he was admitted to [facility]. Patient denies any history of hypertension coronary artery disease congestive heart failure diabetes he is on no medication he has history of tobacco dependence for 22 years smoked a pack per day and quit 2 weeks back he has not seen a physician. He has a strong family history of coronary artery disease his brother and his mother both in their 40s with coronary artery disease and is father who is 70 years old status post 7 stents patient does have progressive dyspnea on exertion which he attributed and thought was due to tobacco use his BNP done at [facility] was 448 BUN was 15.9 creatinine 1.13 and GFR was more than 60 his troponin was 25.9 he had an echo done on 09/30/2024 which showed moderate concentric left ventricular hypertrophy severely reduced left ventricular systolic function with global hypokinesia and left ventricular ejection fraction was 15 to 20% grade 3 left ventricular diastolic dysfunction EKG done showed normal sinus rhythm with nonspecific T wave changes he was noted to have elevated blood pressure and was started on lisinopril Coreg Imdur. 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 Constitutional: Appearance: Normal appearance. He is obese. HENT: Head: Normocephalic and atraumatic. Right Ear: Tympanic membrane, ear canal and external ear normal. Left Ear: Tympanic membrane and ear canal normal. Nose: Nose normal. Mouth/Throat: Mouth: Mucous membranes are moist. Pharynx: Oropharynx is clear. Comments: Mallampati score 3 Eyes: Extraocular Movements: Extraocular movements intact. Pupils: Pupils are equal, round, and reactive to light. Cardiovascular: Rate and Rhythm: Normal rate and regular rhythm. Pulses: Normal pulses. Heart sounds: Normal heart sounds. Comments: S1S2S4 Pulmonary: Effort: Pulmonary effort is normal. Breath sounds: Rales present. Abdominal: General: Abdomen is flat. Bowel sounds are normal. Palpations: Abdomen is soft. Musculoskeletal: General: Normal range of motion. Cervical back: Normal range of motion and neck supple. Skin: General: Skin is warm and dry. Capillary Refill: Capillary refill takes less than 2 seconds. Neurological: General: No focal deficit present. Mental Status: He is alert. Mental status is at baseline. Psychiatric: Mood and Affect: Mood normal. Review of Systems Constitutional: Positive for fatigue. HENT: Negative. Eyes: Negative. Respiratory: Positive for cough and shortness of breath. Cardiovascular: Positive for chest pain. Gastrointestinal: Negative. Endocrine: Negative. Genitourinary: Negative. Musculoskeletal: Negative. Allergic/Immunologic: Negative. Hematological: Negative. Psychiatric/Behavioral: Negative. Assessment and Plan Assessment & Plan NSTEMI (non-ST elevated myocardial infarction) (CMS/HCC) Cycle troponin nitrates Coreg statin aspirin with his blood pressure being high around 188/92 and since he is chest pain free we will hold IV heparin cardiology to see patient low-fat low-salt diet suspect underlying sleep apnea also adding to persistent hypertension patient was counseled about lifestyle modification and encouraged to continue refraining from tobacco. With heart failure with reduced EF and NSTEMI anticipate left heart cath Primary hypertension As above also would recommend outpatient sleep study HFrEF (heart failure with reduced ejection fraction) ([facility]) Optimize guideline directed medical therapy including Coreg lisinopril Aldactone and Farxiga consider changing DAVEY inhibitor to ARNI monitor I's and O's salt restricted diet core CHF measures in place Obesity We will check triglycerides/lipid profile if triglycerides below 300 consider GLP-1 inhibitor discussed with patient about diet management dietary consult already in order for CHF and for obesity VTE Prophylaxis: Heparin subcutaneous ----- Focus of this inpatient stay will remain on problems that need acute care setting f (more content not included)... [facility] Summary Purpose Family History No Family History Records FoundNo Family History Records Found Advance Directives No Advanced Directives Records FoundNo Advanced Directives Records Found Additional Source Comments (unrecognized sect ion and content) No Status Records FoundNo Status Records Found INFORMATION SOURCE (unrecogn ized section and content) DATE CREATED AUTHOR 07/19/2021 [facility] DATE CREATED AUTHOR AUTHOR'S ORGANIZ ATION 12/12/2024 [facility] FOR RECORDS PERTAINING TO PATIENTS WHO [...] BE BASED ON THE PRIMARY CLINICAL RECORDS. [employer] provides no warranty or guarantee of the accuracy or completeness of information in this document.
--- OUTSIDE RECORDS SUMMARY | 2024-12-14 09:46 | XMS_ITS | Patient Health Record ---
Author Organization [facility] in [place] Address [address] [place] [address] Care Team Providers Care Dredge Engineer Name Role Phone Guero Hernández Primary Care Provider Allergies Allergen (clinical drug ingredient) Drug/Non Drug Allergy documented on EMR Reaction Allergy Type Onset Date Status Penicillin anaphylaxis Drug Allergy Acti ve Results Component Value Reference Range Notes BNP Reviewed date:10/01/2024 01:04:29 PM Interpretation: Performing Lab: Notes/Report: [facility] , NT Pro B Type Natriuretic Pept 446.0 <=450.0 pg/mL Performing Lab: see note ML - The [facility] LB CBC AUTO DIFF Reviewed date:10/01/2024 01:04:29 PM Interpretation: Performing Lab: Notes/Report: [facility] , White Blood Count 11.0 4.0-11.0 [...] 0.00-0.03 10 3/uL Performing Lab: see note [facility] LB PROF CHEM 8 (IRENE MIJARES) Reviewed date:10/01/2024 01:04:29 PM Interpretation: Performing Lab: Notes/Report: [facility] , Sodium 140 136-145 mmol/L Potassium [...] mg/dL Performing Lab: see note ML - [facility] LB CBC AUTO DIFF Reviewed date:11/13/2024 06:07:41 PM Interpretation: Performing Lab: Notes/Report: [facility] , White Blood Count 12.9 4.0-11.0 10 3/uL Red Blood Count 5.11 4.70-6.10 10 6/uL Hemoglobin 14.9 14.0-18.0 g/dL Hematocrit 43.5 42.0-54.0 % Mean Corpuscular Volume 85.1 80.0-94.0 fL Mean Corpuscular Hemoglobin 29.2 25.9-34.0 pg Mean Corpuscular HGB Conc 34.3 29.9-35.2 g/dL Red Cell Distribution Width 13.2 11.0-15.0 % Platelet Count 182 150-450 10 3/uL Mean Platelet Volume 12.8 9.5-13.5 fL Neutrophils Percent Auto 63.4 43.0-75.0 % Lymphocytes Percent Auto 23.2 20.5-60.0 % Monocytes Percent Auto 9.0 1.7-12.0 % Eosinophils Percent Auto 3.5 0.9-7.0 % Basophils Percent Auto 0.5 0.2-2.0 % Immature Granulocytes Pct Auto 0.4 0.0-0.5 % Neutrophils Absolute Auto 8.2 1.4-6.5 10 3/uL Lymphocytes Absolute Auto 3.0 1.2-3.8 10 3/uL Monocytes Absolute Auto 1.2 0.3-0.8 10 3/uL Eosinophils Absolute Auto 0.5 0.0-0.7 10 3/uL Basophils Absolute Auto 0.1 0.0-0.1 10 3/uL Immature Granulocytes Abs Auto 0.05 0.00-0.03 10 3/uL Performing Lab: see note ML - The [facility] LB CA echo doppler complete Reviewed date:09/30/2024 08:17:54 PM Interpretation: Performing Lab: Notes/Report: Source Facility: [place] [address] [place] [address] Cardiology Report Signed Patient: MAGALY CARSON MR#: [id number] : 1975 Acct:[id number] Age/Sex: 49 / M ADM Date: 09/28/24 Loc: [place] 215-[address]: Claude Hernández M.D. Ordering Physician: Claude Hernández M.D. Date of Service: 09/30/24 Procedure(s): CA echo doppler complete Accession Number(s): [id number] cc: Claude Hernández M.D.; Physician,Non-Staff Rayne Patient Name: MAGALY CARSON MR#: [id number] : 1975 Exam Date: 09/30/2024 Ordering Doctor: [...] Ashraf M.D. Signed By: 09/30/24 1437 DD/ 34 TD/TT: Digital Engineer: [place] [address] Cardiology Report Signed Patient: MAGALY CARSON MR#: [id number] : 1975 Acct:[id number] Age/Sex: 49 / M ADM Date: 09/28/24 Loc: MS 215-[address]: Benigno Hernández M.D. Ordering Physician: Claude Hernández M.D. Date of Service: 09/30/24 Procedure(s): CA ech o doppler complete Accession Number(s): [id number] cc: Hoy,Claude M.D. ; Physician,Non-Staff M.D. Patient Name: MAGALY CARSON MR#: [id number] : 1975 Exam Date: 09/30/2024 Ordering Doctor: [...] dilatation. RIGHT ATRIUM: Mild dilatation. RIGHT VENTRICLE: Nor mal chamber size. Decreased right ventricular systolic function. [...] Root Diam: 3.53 cm Ascending Ao Diam: 3 .20 cm Aortic Valve AoV Area (Peak Vlad): [...] Ashraf M.D. Signed By: 09/30/24 1437 DD/ 34 TD/TT: Digital Engineer: PROF MISHA Ramires (IRENE MIJARES) Reviewed date:11/13/2024 06:07:41 PM Interpretation: Performing Lab: Notes/Report: [facility] , Sodium 140 136-145 mmol/L Potassium 4.3 3.5-5.1 mmol/L Chloride 103 98-107 mmol/L Carbon Dioxide 28.4 21.0-32.0 mmol/L Anion Gap 12.9 Glucose 143 74-106 mg/dL Blood Urea Nitrogen 21.0 7.0-18.0 mg/dL Creatinine 1.30 0.70-1.30 mg/dL Estimated GFR ( Henny >60 >=60 mL/min/1.73m 2 Estimated GFR (Non- Barbara 59 >=60 mL/min/1.73m 2 BUN Creatinine Ratio 16.2 Calcium 9.0 8.5-10.1 mg/dL Performing Lab: see note ML - The [facility] LB Reason For Referral No Information [...] Status W/U Status Risk Notes Problem Cardiomegaly (5312398) Cardiomegaly (I51.7) Active confirmed Problem Morbid obesity (526676524) Morbid obesity (E66.01) Active confirmed Problem Hypertension (51782962) Hypertension (I10) Active confirmed Problem Congestive heart failure (91925980) Congestive heart failure (I50.9) Active confirmed Problem Coronary artery disease (08587412) CAD (coronary artery disease) (I25.10) Active confirmed Problem Pulmonary edema (80378191) Pulmonary edema (J81.1) Active confirmed Problem Hypertensive urgency (812361620) Hypertensive urgency (I16.0) Active confirmed Vital Signs Blood pressure diastolic 82 mm Hg 10/09/2024 Height 6ft 2Inches in 10/09/2024 Blood pressure systolic 134 mm Hg 10/09/2024 Weight 309 lbs 10/09/2024 BMI 39.67 kg/m2 10/09/2024 Encounters Encounter Location Date Provider Diagnosis [address] [address] 09/30/[address] [address] 10/07/[address] [address] 10/09/2024 Guero Hernández Hypertension I10 ; Congestive heart failure I50.9 and CAD (coronary artery disease) I25.[address] [address] 10/07/2024 Guero Hernández Congestive heart kang lure [...] ACCESS PPO PLUS LOCAL PLAN [address] [place] [address] [phone] [id number] Magaly Carson Self - patient is the insured Medical (General) History Medical History History ICD Code Hypertension I10 Congestive heart failure I50.9 Surgical History Surgery Date(Month/Year) Tonsilectomy Hospitalization History Reason Date(Month/Year) [facility] Congestive Heart F ailure and Hypertension 09/2024
--- OUTSIDE RECORDS SUMMARY | 2024-12-19 07:18 | XMS_ITS | CCD ---
Author Organization [facility] ion 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 Name Role Phone YU, DANA Referring Unavailable [...] Propensity to adverse reactions to drug (disorder) [facility] Repository Problems Active Problems Problem Classification Problem Date Documented Date Episodic/Chronic Acute myocardial infarction (2 sources) Non-ST elevation (NSTEMI) myocardial infarction; Translations: [Non-ST elevation (NSTEMI) myocardial infarction] Onset: 10-03-2024 Chronic Congestive heart failure; nonhypertensive (4 sources) Unspecified systolic (congestive) heart failure; Translations: [Congestive heart failure] Onset: 10-11-2024 Chronic Coronary atherosclerosis and other heart disease (8 sources) Atherosclerotic heart disease of [place] coronary artery with unstable angina pectoris; Translations: [Atherosclerotic heart disease of [place] coronary artery without angina pectoris] Onset: 10-03-2024 [...] appt w Dr waldron will address then [facility] Telemedicine 12-02-2024 Telemedicine [id number] Magaly Yung 1975 M Date Provider Department Center 12/02/2024 Clifford-TACO SPENCE [place] [facility] Family History Problem Relation Age of Onset Coronary artery disease Mother 45 Coronary artery disease Brother 42 Family Status - Relation Status Age at Mother Father Alive Brother Level of Service:NOCHG [place] 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 Reason for Visit and Comments: Cardiology Pharmacist - Lipid Management [Other] [facility] 29on 11-20-2024 29 Addended by: MIKAEL KEENE on: 11/20/2024 02:08 PM Modules accepted: Orders [facility] Documentationon 11-20-2024 Documentation [id number] Maglay Yung 1975 M Date Provider Department Center 11/20/2024 289-MIKAEL KEENE HVC CARD [place] [facility] Family History Problem Relation Age of Onset Coronary artery disease Mother 45 Coronary artery disease Brother 42 Family Status - Relation Status Age at Mother Father Alive Brother Reason for Visit and Comments: Coronary Artery Disease [187] [facility] Documentation [id number] Magaly Yung 1975 M Date Provider Department Center 11/20/[id number], KARA HVCANTICOAG [place] [facility] Family History Problem Relation Age of Onset Coronary artery disease Mother 45 Coronary artery disease Brother 42 Family Status - Relation Status Age at Mother Father Alive Brother Reason for Visit and Comments: Cardiology Pharmacist - Referral [Other] [facility] HPon 11-20-2024 HP H&P reviewed. The patient was examined and there are no changes to the H&P. Discussed risks, benefits, and alternative therapies with the patient, he understands and willing to proceed with coronary angiogram and possible PCI. Troy Mendez MD PGY-7 Interventional Scheduling Specialist [facility] NURSNOTEon 11-20-2024 NURSNOTE RN educated pt on [...] Medical Center Orders Onlyon 11-13-2024 Orders Only [id number] Magaly Yung 1975 M Date Provider Department Center 11/13/2024 TOM [facility] VASC LAB [facility] Family History Problem Relation Age of Onset Coronary artery disease Mother 45 Coronary artery disease Brother 42 Family Status - Relation Status Age at Mother Father Alive Brother [facility] Abstracton 11-01-2024 Abstract [id number] Magaly Yung 1975 M Date Provider Department Center 11/01/2024 MIKAEL [place] [facility] AUTH GA Medical C Family History Problem Relation Age of Onset Coronary artery disease Mother 45 Coronary artery disease Brother 42 Family Status - Relation Status Age at Mother Father Alive Brother [facility] Documentationon 10-28-2024 Documentation [id number] Magaly Yung 1975 M Date Provider Department Center 10/28/2024 MIKAEL [facility] [facility] CARD [place] [facility] Family History Problem Relation Age of Onset Coronary artery disease Mother 45 Coronary artery disease Brother 42 Family Status - Relation Status Age at Mother Father Alive Brother Reason for Visit and Comments: Congestive Heart Failure [127] Coronary Artery Disease [187] [facility] HPon 10-28-2024 Cardiology I had heart team [...] Diagnosis Plan 1. Primary hypertension Case Request Desk Director: Coronary angiography, Percutaneous coronary intervention 2. Multi-vessel coronary artery stenosis Case Request Desk Director: Coronary angiography, Percutaneous coronary intervention 3. HFrEF (heart failure with reduced ejection fraction) ([facility]) Case Request Desk Director: Coronary angiography, Percutaneous coronary intervention 4. Coronary artery disease of [place] artery of [place] heart with stable angina pectoris 5. Tobacco use disorder Case Request Desk Director: Coronary angiography, Percutaneous coronary intervention 6. Mixed hyperlipidemia Case Request Desk Director: Coronary angiography, Percutaneous coronary intervention 7. Class 2 severe obesity due to excess calories with serious comorbidity and body mass index (BMI) of 39.0 to 39.9 in adult ([facility]) Case Request Desk Director: Coronary angiography, Percutaneous coronary intervention 8. Coronary artery disease involving [place] coronary artery of [place] heart with unstable angina pectoris ([facility]) Case Request Desk Director: Coronary angiography, Percutaneous coronary intervention Lab on [...] Bilirubin, Urine 10/17/2024 Negative Negative Final Specific Ralph, Urine 10/17/2024 1.015 1.010 - 1.030 Final [...] eGFR 10/17/2024 65.8 >60.0 mL/min/1.73m*2 Final The [facility] [place]???s estimated glomerular filtration rate (eGFR) will no [...] CHEST 1995;[id number] (more content not included)... Normal [facility] 36on 10-24-2024 36 Called and discussed with patient cardiac catherization reviewed by Dr. Arnav Valle and Dr. Mikael Keene and plan was decided to proceed with PCI instead of open heart surgery. Heart Surgery cancelled for Monday10/28/2024. Patient agreeable to plan of care and all questions and concerns answered appropriately. Normal [facility] Telephoneon 10-24-2024 Telephone [id number] Magaly Yung 1975 M Date Provider Department Center 10/24/2024 NIDA MARTINEZ JCChaim Surgery None Family History Problem Relation Age of Onset Coronary artery disease Mother 45 Coronary artery disease Brother 42 Family Status - Relation Status Age at Mother Father Alive Brother Normal [facility] Abstracton 10-22-2024 Abstract [id number] Magaly Yung 1975 M Date Provider Department Center 10/22/2024 Shanti[facility]USTABO CAR[facility] History Problem Relation Age of Onset Coronary artery disease Mother 45 Coronary artery disease Brother 42 Family Status - Relation Status Age at Mother Father Alive Brother Normal [facility] APTTon 10-17-2024 ACTIVATED PARTIAL THROMBOPLASTIN TIME IN PPP BY COAGULATION ASSAY 31.0 Seconds Normal 25.0-35.0 [facility] Comment on above: Result Comment: Clin ical significance of the APTT is questionable in the presence of heparin. Performed By: #### L [id number] ####[facility] HOSP[facility] LAB (BEAKER)[address] [place] [address] CBC WITH AUTO DIFFERENTIALon 10-17-2024 Basophils (Bld) [#/Vol] 0.12 10*3/uL Normal 0.00-0.20 [facility] Comment on above: Performed By: #### L [id number] ####[facility] (BEAKER)[address] [place] [address] Basophils/100 WBC (Bld) 1.0 % Normal 0.0-1.0 [facility] Comment on above: Performed By: #### L [id number] ####[facility] (BEAKER)[address] [place] [address] Eosinophils (Bld) [#/Vol] 0.35 10*3/uL Normal 0.00-0.50 [facility] Comment on above: Performed By: #### L [id number] ####[facility] ([facility] [place] [address] Eosinophils/100 WBC (Bld) 3.0 % Normal 0.0-6.0 [facility] Comment on above: Performed By: #### L [id number] ####[facility] ([facility])[address] [place] [address] Erythrocyte distribution width (RBC) [Ratio] 13.2 % Normal 11.5-15.0 [facility] Comment on above: Performed By: #### L [id number] ####[facility] ([facility] [place] [address] ERYTHROCYTE MEAN CORPUSCULAR HEMOGLOBIN CONCENTRATION (G/DL) BY AUTOMATED 32.2 g/dL Normal 32.0-35.0 [facility] Comment on above: Performed By: #### L [id number] ####[facility] (BEAKER)[address] [place] [address] Hematocrit (Bld) [Volume fraction] 48.7 % Normal 39.0-50.0 [facility] Comment on above: Performed By: #### L [id number] ####[facility] (BEAKER)[address] [place] [address] Hemoglobin (Bld) [Mass/Vol] 15.7 g/dL Normal 13.0-17.0 [facility] Comment on above: Performed By: #### L [id number] ####[facility] (BEAKER)[address] [place] [address] Immature granulocytes (Bld) [#/Vol] 0.04 10*3/uL Normal 0.00-0.20 [facility] Comment on above: Performed By: #### L [id number] ####[facility] (BEAKER)[address] [place] [address] Immature granulocytes/100 WBC (Bld) 0.3 % Normal 0.0-1.0 [facility] Comment on above: Performed By: #### L [id number] ####[facility] (BEAKER)[address] [place] [address] Lymphocytes (Bld) [#/Vol] 2.14 10*3/uL Normal 1.20-4.00 [facility] Comment on above: Performed By: #### L [id number] ####[facility] (BEAKER)[address] [place] [address] Lymphocytes/100 WBC (Bld) 18.4 % Low 20.0-45.0 [facility] Comment on above: Performed By: #### L [id number] ####[facility] (BEAKER)[address] [place] [address] MCH (RBC) [Entitic mass] 28.1 pg Normal 27.0-33.0 [facility] Comment on above: Performed By: #### L [id number] ####[facility] (BEAKER)[address] [place] [address] MCV (RBC) [Entitic vol] 87.1 fL Normal 82.0-98.0 [facility] Comment on above: Performed By: #### L [id number] ####[facility] (BEAKER)[address] [place] [address] Monocytes (Bld) [#/Vol] 1.11 10*3/uL High 0.10-1.00 [facility] Comment on above: Performed By: #### L [id number] ####[facility] (BEAKER)[address] [place] [address] Monocytes/100 WBC (Bld) 9.5 % Normal 5.0-12.0 [facility] Comment on above: Performed By: #### L [id number] ####[facility] HOSPITAL LAB (BEAKER)[address] [place] [address] Neutrophils (Bld) [#/Vol] 7.90 10*3/uL High 1.60-7.60 [facility] Comment on above: Performed By: #### L [id number] ####[facility] (BEAKER)[address] [place] [address] Neutrophils/100 WBC (Bld) 67.8 % Normal 40.0-72.0 [facility] Comment on above: Performed By: #### L [id number] ####[facility] (BEAKER)[address] [place] [address] NRBC (PER 100 WBCS) BY AUTOMATED COUNT 0.0 % Normal 0 [facility] Comment on above: Performed By: #### L [id number] ####[facility] (BEAKER)[address] [place] [address] PLATELETS (10*3/UL) IN BLOOD AUTOMATED COUNT 236 10*3/uL Normal 150-400 [facility] Comment on above: Performed By: #### L [id number] ####[facility] (BEAKER)[address] [place] [address] RBC (Bld) [#/Vol] 5.59 10*6/uL Normal 4.20-5.70 [facility] Comment on above: Performed By: #### L [id number] ####[facility] (BEAKER)[address] [place] [address] WBC (Bld) [#/Vol] 11.66 10*3/uL High 4.00-10.60 [facility] Comment on above: Performed By: #### L [id number] ####[facility] HOSPITAL LAB (BEAKER)[address] [place] [address] COMPREHENSIVE METABOLIC PANE Davi 10-17-2024 Albumin [Mass/Vol] 4.1 g/dL Normal 3.5-5.7 [facility] Comment on above: Performed By: #### L [id number] ####[facility] ([facility])[address] [place] [address] ALP [Catalytic activity/Vol] 93 U/L Normal 34-104 [facility] Comment on above: Performed By: #### L [id number] ####[facility] ([facility])[address] [place] [address] ALT [Catalytic activity/Vol] 28 U/L Normal 7-52 [facility] Comment on above: Performed By: #### L [id number] ####[facility] ([facility])[address] [place] [address] Anion gap [Moles/Vol] 10 mmol/L Normal 7-20 [facility] Comment on above: Performed By: #### L [id number] ####[facility] ([facility])[address] [place] [address] AST [Catalytic activity/Vol] 16 U/L Normal 13-39 [facility] Comment on above: Performed By: #### L [id number] ####[facility] ([facility])[address] [place] [address] Bilirubin [Mass/Vol] 0.4 mg/dL Normal 0.3-1.0 [facility] Comment on above: Performed By: #### L [id number] ####[facility] ([facility])[address] [place] [address] Calcium [Mass/Vol] 9.6 mg/dL Normal 8.6-10.3 [facility] Comment on above: Performed By: #### L [id number] ####[facility] ([facility])[address] [place] [address] Chloride [Moles/Vol] 103 mmol/L Normal 98-107 [facility] Comment on above: Performed By: #### L [id number] ####[facility] (BEAKER)[address] [place] [address] CO2 [Moles/Vol] 29 mmol/L Normal 21-31 [facility] Comment on above: Performed By: #### L [id number] ####[facility] ([facility])[address] [place] [address] Creatinine [Mass/Vol] 1.34 mg/dL High 0.70-1.30 [facility] Comment on above: Performed By: #### L [id number] ####[facility] ([facility])[address] [place] [address] GLOMERULAR FILTRATION RATE ML/MIN/1.73 SQ M.PREDICTED 65.8 mL/min/1.73m*2 Normal >60.0 [facility] Comment on above: Result Comment: The [facility] [place]???s estimated glomerular filtration rate (eGFR) will no [...] of individuals. Performed By: #### L [id number] ####[facility] ([facility])[address] [place] [address] Glucose [Mass/Vol] 159 mg/dL High 70-100 [facility] Comment on above: Performed By: #### L [id number] ####[facility] ([facility])[address] [place] [address] Potassium [Moles/Vol] 4.4 mmol/L Normal 3.5-5.1 [facility] Comment on above: Performed By: #### L [id number] ####[facility] ([facility])[address] [place] [address] Protein [Mass/Vol] 7.0 g/dL Normal 6.0-8.3 [facility] Comment on above: Performed By: #### L [id number] ####[facility] (BEAKER)[address] [place] [address] Sodium [Moles/Vol] 138 mmol/L Normal 136-145 [facility] Comment on above: Performed By: #### L [id number] ####[facility] (BEAKER)[address] [place] [address] Urea nitrogen [Mass/Vol] 19 mg/dL Normal 7-25 [facility] Comment on above: Performed By: #### L [id number] ####[facility] (BEAKER)[address] [place] [address] UREA NITROGEN/CREATININE (MASS RATIO) IN SER/PLAS 14.2 Normal [facility] Comment on above: Performed By: #### L [id number] ####[facility] (BEAKER)[address] [place] [address] Labon 10-17-2024 Lab [id number] Magaly Yung 1975 M Date Provider Department [facility] 10/17/2024 2245-[facility] OPD LAB RESOURCE [facility] OPD [facility] Family History Problem Relation Age of Onset Coronary artery disease Mother 45 Coronary artery disease Brother 42 Family Status - Relation Status Age at Mother Father Alive Brother Normal [facility] PROTIME-INRon 10-17-2024 INR IN PPP BY COAGULATION ASSAY 1.11 High 0.90-1.10 [facility] Comment on above: Result Comment: ACCC P [...] 1995;108:[id number]. Performed By: #### L [id number] #### [facility] ([facility]) [address] [place] [address] PROTHROMBIN TIME (PT) IN PPP BY COAGULATION ASSAY 14.3 Seconds Normal 12.3-14.8 [facility] Comment on above: Performed By: #### L [id number] #### [facility] ([facility]) [address] [place] [address] TYPE AND SCREENon 10-17-2024 AB SCREEN Negative Normal [facility] Comment on above: Performed By: #### L [id number] #### [facility] BLOOD BANK , ABO group Nom (Bld) AB Normal [facility] Comment on above: Performed By: #### L [id number] #### [facility] , RH TYPE IN BLOOD Positive Normal [facility] Comment on above: Performed By: #### L [id number] #### [facility] , URINALYSISon 10-17-2024 BILIRUBIN, TOTAL PRESENCE IN URINE Negative Normal Negative [facility] Comment on above: Order Comment: Micro scopics not performed on urines with negative chemical reactions unless requested on original order. Performed By: #### L [id number] ####[facility] (BE71lbs)[address] [place] [address] Clarity (U) Clear Normal Clear [facility] Comment on above: Order Comment: Micro scopics not performed on urines with negative chemical reactions unless requested on original order. Performed By: #### L [id number] ####[facility] (BEAKER)[address] [place] [address] Color (U) Yellow Normal Yellow, Light Yellow, Colorless [facility] Comment on above: Order Comment: Micro scopics not performed on urines with negative chemical reactions unless requested on original order. Performed By: #### L [id number] ####[facility] ([facility])[address] [facility] [place] [address] Glucose (U) [Mass/Vol] mg/dL Abnormal Normal [facility] Comment on above: Order Comment: Micro scopics not performed on urines with negative chemical reactions unless requested on original order. Performed By: #### L [id number] ####[facility] ([facility])[address] [facility] [place] [address] HEMOGLOBIN PRESENCE IN URINE Negative Normal Negative [facility] Comment on above: Order Comment: Micro scopics not performed on urines with negative chemical reactions unless requested on original order. Performed By: #### L [id number] ####[facility] ([facility])[address] [facility] [place] [address] Ketones Ql (U) Negative Normal Negative [facility] Comment on above: Order Comment: Micro scopics not performed on urines with negative chemical reactions unless requested on original order. Performed By: #### L [id number] ####[facility] ([facility])[address] [place] [address] LEUKOCYTE ESTERASE PRESENCE IN URINE BY TEST STRIP Negative Normal Negative [facility] Comment on above: Order Comment: Micro scopics not performed on urines with negative chemical reactions unless requested on original order. Performed By: #### L [id number] ####[facility] ([facility])[address] [place] [address] NITRITE PRESENCE IN URINE Negative Normal Negative [facility] Comment on above: Order Comment: Micro scopics not performed on urines with negative chemical reactions unless requested on original order. Performed By: #### L [id number] ####[facility] ([facility] [facility] [place] [address] pH (U) 6.0 [pH] Normal 5.0-8.0 [facility] Comment on above: Order Comment: Micro scopics not performed on urines with negative chemical reactions unless requested on original order. Performed By: #### L [id number] ####[facility] ([facility])[address] [place] [address] Protein (U) [Mass/Vol] Negative Normal Negative [facility] Comment on above: Order Comment: Micro scopics not performed on urines with negative chemical reactions unless requested on original order. Performed By: #### L [id number] ####[facility] ([facility] HOSPITAL)[address] [place] [address] Specific gravity (U) [Rel density] 1.015 Normal 1.010-1.030 [facility] Comment on above: Order Comment: Micro scopics not performed on urines with negative chemical reactions unless requested on original order. Performed By: #### L [id number] ####[facility] ([facility])[address] [place] [address] UROBILINOGEN (MG/DL) IN URINE Normal Normal Normal [facility] [place] Comment on above: Order Comment: Micro scopics not performed on urines with negative chemical reactions unless requested on original order. Performed By: #### L [id number] ####[facility] ([facility])[address] [place] [address] Documentationon 10-16-2024 Documentation [id number] Magaly Yung 1975 M Date Provider Department Center 10/16/202440808-SAVEXWVJARED [facility]Z [facility] HeartVAS Family History Problem Relation Age of Onset Coronary artery disease Mother 45 Coronary artery disease Brother 42 Family Status - Relation Status Age at Mother Father Alive Brother Reason for Visit and Comments: HF Inpatient satisfaction survey sent. [Other] Normal [facility] Abstracton 10-15-2024 Abstract [id number] Magaly Yung 1975 M Date Provider Department Center 10/15/2024 [id number]-XMLTHXERIN HESS [facility] AUTH [place] Medical C Family History Problem Relation Age of Onset Coronary artery disease Mother 45 Coronary artery disease Brother 42 Family Status - Relation Status Age at Mother Father Alive Brother Normal [facility] Abstract [id number] Magaly Yung 1975 M Date Provider Department Center 10/15/2024 2020-GUSTABO CARO [facility] HeartVAS Family History Problem Relation Age of Onset Coronary artery disease Mother 45 Coronary artery disease Brother 42 Family Status - Relation Status Age at Mother Father Alive Brother [facility] Follow-Upon 10-11-2024 Follow-Up [id number] Magaly Yung 1975 M Date Provider Department Center 10/11/2024 [id number]-MSMOOOESSENCE WALDRON [facility] Family History Problem Relation Age of Onset Coronary artery disease Mother 45 Coronary artery disease Brother 42 Family Status - Relation Status Age at Mother Father Alive Brother Level of Service:46995 [place] OFFICE/OUTPATIENT ESTABLISHED LOW MDM 20 MIN Reason for Visit and Comments: Coronary Artery Disease [187] - Scheduled for CABG on 10/21/2024 at [facility] Congestive Heart Failure [127] - Denies SOB and LE edema. Hyperlipidemia [182] - He's getting back pain s/p starting atorvastatin. Hypertension [382844] Fatigue [46] [facility] 36on 10-07-2024 36 Phoned patient for Hospital Follow up & pre-op instruction Instructed patient to come to [facility] the week of October 14 [...] Check in at registration desk lobby of [facility] then check in on second floor at surgical waiting room desk. Patient denies chest pain and shortness of breath. Patien requesting to move surgery date up as he is currently off work. I told patient I would relay his request to Dr. Hess. [facility] 36 Discharge date: 10/04 Call date: 10/07/24 [...] possible to have his surgery moved up. Np will notify the CT Surgery RN of the patient's question. Pt denied any additional questions or concerns at this time. Normal [facility] Telephoneon 10-07-2024 Telephone [id number] Magaly Yung 1975 M Date Provider Department [facility] 10/07/2024 JARED ROMERO [facility] [place] HeartVAS No family history on file Reason for Visit and Comments: HF post discharge call. [Other] Normal [facility] 36on 10-05-2024 36 Post Discharge Call Good morning, I am Gisela Houser RN a lead nurse from [facility]. I am calling you to follow [...] given an opportunity to ask questions? Yes Mriian did a great job explaining my dc [...] No Patient Name Magaly Yung Date 10/05/24 [facility] Telephoneon 10-05-2024 Telephone [id number] Magaly Yung [place] 1975 M Provider Department [facility] 10/05/2024 [facility] MARQUEZ [facility] Medical C Family History Problem Relation Age of Onset Coronary artery disease Mother 45 Coronary artery disease Brother 42 Family Status - Relation Status Age at Mother Father Alive Brother Reason for Visit and Comments: Hospital Follow-up [832] Normal [facility] 30on 10-04-2024 30 The patient is Moderately Stable - Low risk of patient condition declining or worsening The patient's goals for the shift include comfort,rest The clinical goals for the shift include stable vitals, comfort Over the shift, the patient did not make progress toward the following goals. Barriers to progression include na. Recommendations to address these barriers include na. Normal [facility] 30 The patient is Moderately Stable - [...] and maintained or improved Outcome: Progressing Normal [facility] ANTI-XA (HEPARIN LEVEL)on HEPARIN UNFRACTIONATED (U/ML) IN PPP BY CHROMOGENIC METHOD 0.38 IU/mL Normal 0.3-0.7 [facility] Comment on above: Result Comment: Meg roxaban and Apixaban will interfere with the anti Xa assay used to monitor UFH and LMWH. Performed By: #### L [id number] ####[facility] (BE[facility]ER)[address] [place] [address] CONSULTon 10-04-2024 CONSULT discharge planning: to Home Patient came to this admission from their private residence in the community, where they live with their spouse and family. - no OT or PT orders in place at this time - LDAs tab not listing any open wounds or closed skin issues at this time - follow up with [facility] on AVS - follow up with [facility] on AVS Normal [facility] 30on 10-03-2024 30 Daily Case Managemen t [...] patient Other Other: Heart Failure 10/02/24 0245 [facility] 30 The patient is Moderately Stable - Low risk of patient condition declining or worsening The patient's goals for the shift include comfort, rest The clinical goals for the shift include stable vitals, comfort Over the shift, the patient did not make progress toward the following goals. Barriers to progression include. Recommendations to address these barriers include. Normal [facility] 30 The patient is Moderately Stable - [...] monitored and maintained or improved Outcome: Progressing [facility] ANTI-XA (HEPARIN LEVEL)on HEPARIN UNFRACTIONATED (U/ML) IN PPP BY CHROMOGENIC METHOD 0.37 IU/mL Normal 0.3-0.7 [facility] Comment on above: Result Comment: [place] roxaban and Apixaban will interfere with the anti Xa assay used to monitor UFH and LMWH. Performed By: #### L [id number] #### [facility] ([facility]) [address] [place] [address] HEPARIN UNFRACTIONATED (U/ML) IN PPP BY CHROMOGENIC METHOD 0.32 IU/mL Normal 0.3-0.7 [facility] Comment on above: Result Comment: [place] roxaban and Apixaban will interfere with the anti Xa assay used to monitor UFH and LMWH. Performed By: #### L [id number] ####[facility] ([facility])[address] [place] [address] HEPARIN UNFRACTIONATED (U/ML) IN PPP BY CHROMOGENIC METHOD 0.34 IU/mL Normal 0.3-0.7 [facility] Comment on above: Result Comment: [place] roxaban and Apixaban will interfere with the anti Xa assay used to monitor UFH and LMWH. Performed By: #### L [id number] ####[facility] ([facility])[address] [place] [address] HEPARIN UNFRACTIONATED (U/ML) IN PPP BY CHROMOGENIC METHOD 0.22 IU/mL Low 0.3-0.7 [facility] Comment on above: Order Comment: Check anti-Xa level every 6 hours while on heparin infusion, or per protocol. Result Comment: [place] roxaban and Apixaban will interfere with the anti Xa assay used to monitor UFH and LMWH. Performed By: #### L [id number] ####[facility] ([facility])[address] [place] [address] BASIC METABOLIC PANELon 09-17 Anion gap [Moles/Vol] 13 mmol/L Normal 7-20 [facility] Comment on above: Performed By: #### L [id number] #### [facility] ([facility]) [address] [place] [address] Calcium [Mass/Vol] 9.2 mg/dL Normal 8.6-10.3 [facility] Comment on above: Performed By: #### L [id number] #### [facility] ([facility]) [address] [place] [address] Chloride [Moles/Vol] 102 mmol/L Normal 98-107 [facility] Comment on above: Performed By: #### L [id number] #### [facility] ([facility]) [address] [place] [address] CO2 [Moles/Vol] 30 mmol/L Normal 21-31 [facility] Comment on above: Performed By: #### L [id number] #### [facility] ([facility]) [address] [place] [address] Creatinine [Mass/Vol] 1.17 mg/dL Normal 0.70-1.30 [facility] Comment on above: Performed By: #### L [id number] #### [facility] ([facility]) [address] [place] [address] GLOMERULAR FILTRATION RATE ML/MIN/1.73 SQ M.PREDICTED 77.4 mL/min/1.73m*2 Normal >60.0 [facility] Comment on above: Result Comment: The [facility]???s estimated glomerular filtration rate (eGFR) will no [...] individuals. Performed By: #### L [id number] #### [facility] ([facility]) [address] [place] [address] Glucose [Mass/Vol] 122 mg/dL High 70-100 [facility] Comment on above: Performed By: #### L [id number] #### [facility] ([facility]) [address] [place] [address] Potassium [Moles/Vol] 3.7 mmol/L Normal 3.5-5.1 [facility] [place] Comment on above: Performed By: #### L [id number] #### [facility] ([facility]) [address] [place] [address] Sodium [Moles/Vol] 141 mmol/L Normal 136-145 [facility] Comment on above: Performed By: #### L [id number] #### [facility] ([facility] [address] [place] [address] Urea nitrogen [Mass/Vol] 21 mg/dL Normal 7-25 [facility] [place] Comment on above: Performed By: #### L [id number] #### [facility] ([facility]) [address] [place] [address] UREA NITROGEN/CREATININE (MASS RATIO) IN SER/PLAS 17.9 Normal [facility] Comment on above: Performed By: #### L [id number] #### [facility] ([facility] [address] [place] [address] CBCon 10-03-2024 Erythrocyte distribution width (RBC) [Ratio] 14.0 % Normal 11.5-15.0 [facility] Comment on above: Performed By: #### L [id number] #### [facility] ([facility] [address] [place] [address] ERYTHROCYTE MEAN CORPUSCULAR HEMOGLOBIN CONCENTRATION (G/DL) BY AUTOMATED 32.0 g/dL Normal 32.0-35.0 [facility] Comment on above: Performed By: #### L [id number] #### [facility] ([facility]) [address] [place] [address] Hematocrit (Bld) [Volume fraction] 49.7 % Normal 39.0-50.0 [facility] Comment on above: Performed By: #### L [id number] #### [facility] (BE[facility]ER) [address] [place] [address] Hemoglobin (Bld) [Mass/Vol] 15.9 g/dL Normal 13.0-17.0 [facility] Comment on above: Performed By: #### L [id number] #### [facility] ([facility]) [address] [place] [address] MCH (RBC) [Entitic mass] 28.0 pg Normal 27.0-33.0 [facility] Comment on above: Performed By: #### L [id number] #### [facility] ([facility]) [address] [place] [address] MCV (RBC) [Entitic vol] 87.7 fL Normal 82.0-98.0 [facility] Comment on above: Performed By: #### L [id number] #### [facility] ([facility]) [address] [place] [address] PLATELETS (10*3/UL) IN BLOOD AUTOMATED COUNT 177 10*3/uL Normal 150-400 [facility] Comment on above: Performed By: #### L [id number] #### [facility] ([facility]) [address] [place] [address] RBC (Bld) [#/Vol] 5.67 10*6/uL Normal 4.20-5.70 [facility] Comment on above: Performed By: #### L [id number] #### [facility] ([facility]) [address] [place] [address] WBC (Bld) [#/Vol] 10.55 10*3/uL Normal 4.00-10.60 [facility] Comment on above: Performed By: #### L [id number] #### [facility] ([facility]) [address] [place] [address] CONSULTon 10-03-2024 CONSULT Inpatient consult to Cardiothoracic Surgery Consult performed by: Nida Landa CNP Consult ordered by: Mikael Keene MD Reason for consult: Severe Multivessel Coronary Artery Disease Cardiothoracic Surgery Consultation Note 10/03/2024 Room: [facility]3116- Reason For Consult evaluate for CABG Referring Provider: Merrill Hernández MD History Of Present Illness Magaly Yung is a 49 y.o. male with PMH of smoker, obesity, strong family history of CAD who presented to [facility] as a direct transfer where he was experiencing intermittent chest pain, described as anterior chest dull to pressure-like associated with dyspnea radiating to left. [facility] labs remarkable for BNP 448, BUN 15.9, [...] is somewhat limited. He was transferred to [facility] for cardiac catherization. Underwent cardiac cath yesterday with Dr. Mikael Keene and was found to have severe multivessel CAD. CT Surgery was consulted for surgical evaluation and recommendations. Seen bedside with Dr. Hess this morning. Remains on continuous heparin infusion. Denies chest pain or SOB. Most recent troponin 8. Assessment: Principal Problem: Coronary artery disease of [place] artery of [place] heart with stable angina pectoris Active Problems: NSTEMI (non-ST elevated myocardial infarction) ([facility]) Primary hypertension HFrEF (heart failure with reduced ejection fraction) ([facility]) Obesity Former smoker Plan : -Patient seen and evaluated by Cardiothoracic Team. Dr. Erin Hess personally examined the patient and reviewed The Cardiac Catherization, Echocardiogram, CXR, and Other Diagnostic Testing. Findings discussed with patient. Explained current disease process and reviewed treatment options. -CT Surgery Recommendation: Coronary Artery Bypass Grafting. Echocardiogram from [place] not transferred over, will obtain one this [...] 50.7%, WBC Count: 13.7 10???/?L, Platelet Count: [id number] cells/?L PreOp Medications: Oral diabetes control Substance Abuse: Former smoker Risk Factors / Comorbidities: Diabetes Mellitus , Hypertension, Family Hx of CAD Pulmonary RF: Moderate CLD Cardiac Status: Acute heart failure, NYHA Class III, Ejection Fraction = 30% Coronary Artery Disease: 3 vessels diseased, Proximal LAD Stenosis >= 70%, Non-ST Elevation CO, CO: 1 to 7 Days -Pre-Op Testing needed [...] 0941 Revie (more content not included)... Normal [facility] MAGNESIUMon 10-03-2024 Magnesium [Mass/Vol] 2.3 mg/dL Normal 1.9-2.7 [facility] Comment on above: Performed By: #### L [id number] #### [facility] ([facility]) [address] [place] [address] URINALYSISon 10-03-2024 BILIRUBIN, TOTAL PRESENCE IN URINE Negative Normal Negative [facility] Comment on above: Order Comment: Micro scopics not performed on urines with negative chemical reactions unless requested on original order. Performed By: #### L [id number] #### [facility] ([facility]) [address] [place] [address] Clarity (U) Clear Normal Clear [facility] Comment on above: Order Comment: Micro scopics not performed on urines with negative chemical reactions unless requested on original order. Performed By: #### L [id number] #### [facility] ([facility]) [address] [place] [address] Color (U) Light-Yellow Normal Colorless, Yellow, Light-Yellow [facility] Comment on above: Order Comment: Micro scopics not performed on urines with negative chemical reactions unless requested on original order. Performed By: #### L [id number] #### [facility] ([facility]) [address] [place] [address] Glucose (U) [Mass/Vol] mg/dL Abnormal Normal [facility] Comment on above: Order Comment: Micro scopics not performed on urines with negative chemical reactions unless requested on original order. Performed By: #### L [id number] #### [facility] ([facility]) [address] [place] [address] HEMOGLOBIN PRESENCE IN URINE Negative Normal Negative [facility] Comment on above: Order Comment: Micro scopics not performed on urines with negative chemical reactions unless requested on original order. Performed By: #### L [id number] #### [facility] ([facility]) [address] [place] [address] Ketones Ql (U) Negative Normal Negative [facility] Comment on above: Order Comment: Micro scopics not performed on urines with negative chemical reactions unless requested on original order. Performed By: #### L [id number] #### [facility] ([facility]) [address] [place] [address] LEUKOCYTE ESTERASE PRESENCE IN URINE BY TEST STRIP Negative Normal Negative [facility] Comment on above: Order Comment: Micro scopics not performed on urines with negative chemical reactions unless requested on original order. Performed By: #### L [id number] #### [facility] ([facility]) [address] [place] [address] NITRITE PRESENCE IN URINE Negative Normal Negative [facility] Comment on above: Order Comment: Micro scopics not performed on urines with negative chemical reactions unless requested on original order. Performed By: #### L [id number] #### [facility] ([facility]) [address] [place] [address] pH (U) 6.0 [pH] Normal 5.0-8.0 [facility] Comment on above: Order Comment: Micro scopics not performed on urines with negative chemical reactions unless requested on original order. Performed By: #### L [id number] #### [facility] ([facility]) [address] [place] [address] Protein (U) [Mass/Vol] Negative Normal Negative [facility] Comment on above: Order Comment: Micro scopics not performed on urines with negative chemical reactions unless requested on original order. Performed By: #### L [id number] #### [facility] ([facility]) [address] [place] [address] Specific gravity (U) [Rel density] 1.020 Normal 1.010-1.030 [facility] Comment on above: Order Comment: Micro scopics not performed on urines with negative chemical reactions unless requested on original order. Performed By: #### L [id number] #### [facility] ([facility] [address] [place] [address] UROBILINOGEN (MG/DL) IN URINE 2.0 mg/dL Abnormal Normal [facility] Comment on above: Order Comment: Micro scopics not performed on urines with negative chemical reactions unless requested on original order. Performed By: #### L [id number] #### [facility] ([facility]) [address] [place] [address] 30on 10-02-2024 30 Daily Case Managemen t Update Multidisciplinary rounds have been completed. Barriers to Discharge: Patient is a transfer from [facility] for chest pain, cardiology consulted and plan to take patient for heart cath. 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 Discharge dispo: plan at this time is for patient to discharge home when medically ready. Np heard back from Dr Yu, and was given order to pulmonary navigation consult. Np placed order. Diet: Dietary Orders (From admission, [...] Other Other: Heart Failure 10/02/24 0245 Normal [facility] 30 The patient is Moderately Stable - Low risk of patient condition declining or worsening The patient's goals for the shift include comfort The clinical goals for the shift include stable vitals Over the shift, the patient did not make progress toward the following goals. Barriers to progression include. Recommendations to address these barriers include. Normal [facility] 30 The patient is Moderately Stable - [...] and behaviors that affect risk of falls [place] fall precautions as indicated by assessment Educate [...] conditions and prevent exacerbation or deterioration Normal [facility] [place] Connor 04-16-2025 ACTIVATED PARTIAL THROMBOPLASTIN TIME IN PPP BY COAGULATION ASSAY 28.5 Seconds Normal 25.0-35.0 [facility] [place] Comment on above: Order Comment: Basel ine aPTT before initiating heparin infusion. Result Comment: Clin ical significance of the APTT is questionable in the presence of heparin. Performed By: #### L [id number] #### [facility] ([facility]) [address] [place] [address] ACTIVATED PARTIAL THROMBOPLASTIN TIME IN PPP BY COAGULATION ASSAY 28.2 Seconds Normal 25.0-35.0 [facility] [place] Comment on above: Order Comment: Basel ine aPTT before initiating heparin infusion. Result Comment: Clin ical significance of the APTT is questionable in the presence of heparin. Performed By: #### L [id number] #### [facility] ([facility]) [address] [place] [address] B-TYPE NATRIURETIC PEPTIDEon 10-02-2024 Natriuretic peptide B (Bld) [Mass/Vol] 121 pg/mL High 0-100 [facility] [place] Comment on above: Performed By: #### L [id number] ####[facility] ([facility])[address] [place] [address] CBC WITH AUTO DIFFERENTIALon 10-02-2024 Basophils (Bld) [#/Vol] 0.10 10*3/uL Normal 0.00-0.20 [facility] [place] Comment on above: Performed By: #### L [id number] #### [facility] ([facility]) [address] [place] [address] Basophils/100 WBC (Bld) 0.7 % Normal 0.0-1.0 [facility] [place] Comment on above: Performed By: #### L [id number] #### [facility] ([facility]) [address] [place] [address] Eosinophils (Bld) [#/Vol] 0.44 10*3/uL Normal 0.00-0.50 [facility] [place] Comment on above: Performed By: #### L [id number] #### [facility] ([facility]) [address] [place] [address] Eosinophils/100 WBC (Bld) 3.2 % Normal 0.0-6.0 [facility] [place] Comment on above: Performed By: #### L [id number] #### [facility] ([facility]) [address] [place] [address] Erythrocyte distribution width (RBC) [Ratio] 13.8 % Normal 11.5-15.0 [facility] [place] Comment on above: Performed By: #### L [id number] #### [facility] ([facility]) [address] [place] [address] ERYTHROCYTE MEAN CORPUSCULAR HEMOGLOBIN CONCENTRATION (G/DL) BY AUTOMATED 32.0 g/dL Normal 32.0-35.0 [facility] [place] Comment on above: Performed By: #### L [id number] #### [facility] ([facility]) [address] [place] [address] Hematocrit (Bld) [Volume fraction] 50.7 % High 39.0-50.0 [facility] [place] Comment on above: Performed By: #### L [id number] #### [facility] ([facility]) [address] [place] [address] Hemoglobin (Bld) [Mass/Vol] 16.2 g/dL Normal 13.0-17.0 [facility] [place] Comment on above: Performed By: #### L [id number] #### [facility] ([facility]) [address] [place] [address] Immature granulocytes (Bld) [#/Vol] 0.06 10*3/uL Normal 0.00-0.20 [facility] [place] Comment on above: Performed By: #### L [id number] #### [facility] ([facility]) [address] [place] [address] Immature granulocytes/100 WBC (Bld) 0.4 % Normal 0.0-1.0 [facility] [place] Comment on above: Performed By: #### L [id number] #### [facility] ([facility]) [address] [place] [address] Lymphocytes (Bld) [#/Vol] 3.01 10*3/uL Normal 1.20-4.00 [facility] [place] Comment on above: Performed By: #### L [id number] #### [facility] ([facility]) [address] [place] [address] Lymphocytes/100 WBC (Bld) 21.9 % Normal 20.0-45.0 [facility] [place] Comment on above: Performed By: #### L [id number] #### [facility] ([facility]) [address] [place] [address] MCH (RBC) [Entitic mass] 27.6 pg Normal 27.0-33.0 [facility] [place] Comment on above: Performed By: #### L [id number] #### [facility] ([facility]) [address] [place] [address] MCV (RBC) [Entitic vol] 86.4 fL Normal 82.0-98.0 [facility] [place] Comment on above: Performed By: #### L [id number] #### [facility] ([facility]) [address] [place] [address] Monocytes (Bld) [#/Vol] 0.95 10*3/uL Normal 0.10-1.00 [facility] [place] Comment on above: Performed By: #### L [id number] #### [facility] ([facility]) [address] [place] [address] Monocytes/100 WBC (Bld) 6.9 % Normal 5.0-12.0 [facility] [place] Comment on above: Performed By: #### L [id number] #### [facility] ([facility] [address] [place] [address] Neutrophils (Bld) [#/Vol] 9.18 10*3/uL High 1.60-7.60 [facility] [place] Comment on above: Performed By: #### L [id number] #### [facility] ([facility]) [address] [place] [address] Neutrophils/100 WBC (Bld) 66.9 % Normal 40.0-72.0 [facility] [place] Comment on above: Performed By: #### L [id number] #### [facility] ([facility]) [address] [place] [address] NRBC (PER 100 WBCS) BY AUTOMATED COUNT 0.0 % Normal 0 [facility] [place] Comment on above: Performed By: #### L [id number] #### [facility] ([facility]) [address] [place] [address] PLATELETS (10*3/UL) IN BLOOD AUTOMATED COUNT 181 10*3/uL Normal 150-400 [facility] [place] Comment on above: Performed By: #### L [id number] #### [facility] ([facility]) [address] [place] [address] RBC (Bld) [#/Vol] 5.87 10*6/uL High 4.20-5.70 [facility] Comment on above: Performed By: #### L [id number] #### [facility] ([facility]) [address] [place] [address] WBC (Bld) [#/Vol] 13.74 10*3/uL High 4.00-10.60 [facility] Comment on above: Performed By: #### L [id number] #### [facility] ([facility]) [address] [place] [address] COMPREHENSIVE METABOLIC PANE Davi 10-02-2024 Albumin [Mass/Vol] 4.3 g/dL Normal 3.5-5.7 [facility] Comment on above: Performed By: #### L [id number] ####[facility] ([facility])[address] [place] [address] ALP [Catalytic activity/Vol] 80 U/L Normal 34-104 [facility] [place] Comment on above: Performed By: #### L [id number] ####[facility] ([facility])[address] [place] [address] ALT [Catalytic activity/Vol] 22 U/L Normal 7-52 [facility] [place] Comment on above: Performed By: #### L [id number] ####[facility] ([facility])[address] [place] [address] Anion gap [Moles/Vol] 11 mmol/L Normal 7-20 [facility] [place] Comment on above: Performed By: #### L [id number] ####[facility] ([facility])[address] [place] [address] AST [Catalytic activity/Vol] 17 U/L Normal 13-39 [facility] [place] Comment on above: Performed By: #### L [id number] ####[facility] ([facility])[address] [place] [address] Bilirubin [Mass/Vol] 0.6 mg/dL Normal 0.3-1.0 [facility] Comment on above: Performed By: #### L [id number] ####[facility] ([facility])[address] [place] [address] Calcium [Mass/Vol] 9.2 mg/dL Normal 8.6-10.3 [facility] Comment on above: Performed By: #### L [id number] ####[facility] ([facility])[address] [place] [address] Chloride [Moles/Vol] 102 mmol/L Normal 98-107 [facility] Comment on above: Performed By: #### L [id number] ####[facility] ([facility])[address] [place] [address] CO2 [Moles/Vol] 29 mmol/L Normal 21-31 [facility] Comment on above: Performed By: #### L [id number] ####[facility] ([facility] [place] [address] Creatinine [Mass/Vol] 1.11 mg/dL Normal 0.70-1.30 [facility] [place] Comment on above: Performed By: #### L [id number] ####[facility] ([facility])[address] [place] [address] GLOMERULAR FILTRATION RATE ML/MIN/1.73 SQ M.PREDICTED 82.4 mL/min/1.73m*2 Normal >60.0 [facility] Comment on above: Result Comment: The [facility]???s estimated glomerular filtration rate (eGFR) will no [...] of individuals. Performed By: #### L [id number] ####[facility] ([facility])[address] [place] [address] Glucose [Mass/Vol] 181 mg/dL High 70-100 [facility] Comment on above: Performed By: #### L [id number] ####[facility] ([facility])[address] [place] [address] Potassium [Moles/Vol] 3.4 mmol/L Low 3.5-5.1 [facility] [place] Comment on above: Performed By: #### L [id number] ####[facility] (BEAKER)[address] [place] [address] Protein [Mass/Vol] 7.0 g/dL Normal 6.0-8.3 [facility] Comment on above: Performed By: #### L [id number] ####[facility] ([facility])[address] [place] [address] Sodium [Moles/Vol] 139 mmol/L Normal 136-145 [facility] Comment on above: Performed By: #### L [id number] ####[facility] ([facility])[address] [place] [address] Urea nitrogen [Mass/Vol] 18 mg/dL Normal 7-25 [facility] [place] Comment on above: Performed By: #### L [id number] ####[facility] ([facility]ER)[address] [place] [address] UREA NITROGEN/CREATININE (MASS RATIO) IN SER/PLAS 16.2 Normal [facility] Comment on above: Performed By: #### L [id number] ####[facility] ([facility])[address] [place] [address] CONSULTon 10-02-2024 CONSULT Adult Nutrition Assessment: Name: Magaly Yung Date: 1975 Date of Visit: 10/02/24 Admission Dx: NSTEMI (non-ST elevated myocardial infarction) ([facility]) [I21.4] Reason for assessment: MD referral Information [...] day. 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 [...] handout fr (more content not included)... Normal [facility] CONSULT --- Attestation signed by Marko Smith MD at 10/02/2024 7:53 PM (Updated) I personally spoke with and examined Mr. Yung this morning with Dr. Montero. He has severe LV dysfunction the setting of angina at low levels of activity such as walking across his trailer. My diagnoses are acute systolic heart failure in the setting of a non-ST elevation CO. We discussed the expected risks and benefits [...] use disorder for 20 years, presenting from [facility] with chest pain Patient reports that he has been endorsing continued chest pain of 1 week duration, it become worse yesterday so he went to [facility]. Associated with diaphoresis, feels like a pressure, 5 out of 10, no radiation. Patient has a brother that with heart attack at the age of 42, mother at age of 47, at [facility] patient echo showed heart failure with reduced [...] Value Ventricular Rate 77 Atrial Rate 77 VT Interval 186 QRS DURATION 102 QT Interval 422 QTC CALCULATION(BAZETT) 477 P [place] 51 R-[place] 34 T Wave [place] 54 Impression Sinus rhythm with occasional Premature [...] failure with reduced ejection fraction, EF at [facility] 15 to 20% on 10/01/2024 Tobacco use [...] least in part, completed using a voice blueprint clerk system. Every effort was made to ensure accuracy. However, inadvertent computerized blueprint clerk errors may be present. Vic Montero PGY-2, internal medicine resident [facility] Normal [facility] HEMOGLOBIN A1Con 10-02-2024 Glucose [Mass/Vol] 148 mg/dL Normal [facility] Comment on above: Performed By: #### L [id number] #### [facility] ([facility]) [address] [place] [address] HbA1c (Bld) [Mass fraction] 6.8 % High 4.0-6.0 [facility] [place] Comment on above: Performed By: #### L [id number] #### [facility] ([facility]) [address] [place] [address] HIGH SENSITIVITY TROPONIN Io n 10-02-2024 HS TROPONIN I (NG/L) 8 ng/L Normal <20 [facility] Comment on above: Performed By: #### L [id number] #### [facility] ([facility]) [address] [address] HS TROPONIN I (NG/L) 10 ng/L Normal <20 [facility] Comment on above: Performed By: #### L [id number] #### [facility] ([facility] [address] [place] [address] HS TROPONIN I (NG/L) 11 ng/L Normal <20 [facility] Comment on above: Performed By: #### L [id number] ####[facility] ([facility] [place] [address] HS TROPONIN I (NG/L) 10 ng/L Normal <20 [facility] Comment on above: Performed By: #### L [id number] #### [facility] ([facility] [address] [place] [address] HPon 10-02-2024 HP H&P reviewed. The patient was examined and there are no changes to the H&P. Proceed with coronary angiogram for unstable angina Normal [facility] LIPID PANELon 10-02-2024 CHOL/HDL 10.0 mg/dL Normal [facility] Comment on above: Performed By: #### L [id number] #### [facility] ([facility] [address] [place] [place] [address] Cholesterol [Mass/Vol] 211 mg/dL High 120-200 [facility] [place] Comment on above: Performed By: #### L [id number] #### [facility] ([facility]) [address] [place] [address] Magnesium [Mass/Vol] 132 mg/dL Normal <150 [facility] Comment on above: Result Comment: TRIG LYCERIDE REFERENCE RANGE: 20 YEARS AND OLDER CARDIOVASCULAR RISK LESS THAN 150 mg/dL LOW RISK 150 TO 199 mg/dL BORDERLINE RISK 200 mg/dL AND GREATER HIGH RISK Performed By: #### L [id number] #### [facility] ([facility]) [address] [place] [address] Magnesium [Mass/Vol] 164 mg/dL High 0-160 [facility] Comment on above: Performed By: #### L [id number] #### [facility] ([facility]) [address] [place] [address] Magnesium [Mass/Vol] 21 mg/dL Low 23-92 [facility] Comment on above: Performed By: #### L [id number] #### [facility] ([facility]) [address] [place] [address] NON HDL CHOL. (LDL+VLDL) 190 Normal [facility] Comment on above: Performed By: #### L [id number] #### [facility] ([facility]) [address] [place] [address] TOTAL VLDL-C 26 mg/dL Normal 0-40 [facility] Comment on above: Performed By: #### L [id number] #### [facility] ([facility]) [address] [place] [address] PLATELET COUNTon 10-02-2024 PLATELETS (10*3/UL) IN BLOOD AUTOMATED COUNT 194 10*3/uL Normal 150-400 [facility] Comment on above: Performed By: #### L [id number] #### [facility] ([facility]) [address] [place] [address] PLATELETS (10*3/UL) IN BLOOD AUTOMATED COUNT 198 10*3/uL Normal 150-400 [facility] Comment on above: Performed By: #### L [id number] ####[facility] ([facility])[address] [place] [address] TSH3 REFLEX TO FT4on 025 THYROTROPIN (MIU/L) IN SER/PLAS BY DETECTION LIMIT <= 0.05 MIU/L 3.25 mIU/L Normal 0.34-5.60 [facility] Comment on above: Performed By: #### L [id number] ####[facility] ([facility])[address] [place] [address] COVID-19 Antigenon 1 COVID-19 Antigen Reason for [...] its performance Ed Disclaimer characteristic determined by [employer] and Ed Disclaimer validated at [facility]. This Ed Disclaimer test has not [...] is terminated or revoked sooner. PERFORMED BY: [place] [address] PATHOLOGIST ASSORTER PATTI DE M.D. Normal [facility] Comment on above: Performed By: #### S NAATLYA COVID-19 ED #### [facility] [address] [place] [address] Ed Ag Negativeon 01-26-20 21 Ed Ag Negative Negative Normal Negative [facility] Comment on above: Result Comment: This is a duplicate Ed SARS Antigen (SYED) result to be used for statistical tracking purpose only. PERFORMED BY: [place] [address] PATHOLOGIST ASSORTER PATTI DE M.D. Performed By: #### S NATALYA COVID-19 ED #### [facility] [address] [place] [address] Complete Blood Count Auto Di ffon 10-26-2020 Basophils (Bld) [#/Vol] 0.1 10*3/uL Normal 0.0-0.2 [facility] Comment on above: Order Comment: Reaso n for Exam Essential hypertension Result Comment: PERF ORMED BY: [place] [address] PATHOLOGIST ASSORTER PATTI DE M.D. Performed By: #### V [id number], CMP, CBC, LIPID #### [facility] [address] [place] [address] [place] Basophils/100 WBC (Bld) 1.0 % Normal . [facility] Comment on above: Order Comment: Reaso n for Exam Essential hypertension Performed By: #### V [id number], CMP, CBC, LIPID #### [facility] [address] [place] [address] [place] Eosinophils (Bld) [#/Vol] 0.4 10*3/uL Normal 0.0-0.45 [facility] Comment on above: Order Comment: Reaso n for Exam Essential hypertension Performed By: #### V [id number], CMP, CBC, LIPID #### [address] Eosinophils/100 WBC (Bld) 4.7 % Normal . [facility] Comment on above: Order Comment: Reaso n for Exam Essential hypertension Performed By: #### V [id number], CMP, CBC, LIPID #### [address] Erythrocyte distribution width (RBC) [Ratio] 14.0 % Normal 12.0-14.8 [facility] Comment on above: Order Comment: Reaso n for Exam Essential hypertension Performed By: #### V [id number], CMP, CBC, LIPID #### [facility] [address] [place] [address] Hematocrit (Bld) [Volume fraction] 47.4 % Normal 38.8-50.0 [facility] Comment on above: Order Comment: Reaso n for Exam Essential hypertension Performed By: #### V [id number], CMP, CBC, LIPID #### [facility] [address] [place] [address] [place] Hemoglobin (Bld) [Mass/Vol] 16.3 g/dL Normal 13.0-17.0 [facility] Comment on above: Order Comment: Reaso n for Exam Essential hypertension Performed By: #### V [id number], CMP, CBC, LIPID #### [facility] [address] [place] [address] Lymphocytes (Bld) [#/Vol] 2.3 10*3/uL Normal 1.00-4.8 [facility] Comment on above: Order Comment: Reaso n for Exam Essential hypertension Performed By: #### V [id number], CMP, CBC, LIPID #### [facility] [address] [place] [address] Lymphocytes/100 WBC (Bld) 26.7 % Normal . [facility] Comment on above: Order Comment: Reaso n for Exam Essential hypertension Performed By: #### V [id number], CMP, CBC, LIPID #### [facility] [address] [place] [address] MCH (RBC) [Entitic mass] 30.8 pg Normal 27.5-35.2 [facility] Comment on above: Order Comment: Reaso n for Exam Essential hypertension Performed By: #### V [id number], CMP, CBC, LIPID #### [facility] [address] [place] [address] MCV (RBC) [Entitic vol] 89.7 fL Normal 83.5-101 [facility] Comment on above: Order Comment: Reaso n for Exam Essential hypertension Performed By: #### V [id number], CMP, CBC, LIPID #### [facility] [address] [place] [address] Mean Corpuscular HGB Conc 34.4 g/dL Normal 32.5-35.6 [facility] Comment on above: Order Comment: Reaso n for Exam Essential hypertension Performed By: #### V [id number], CMP, CBC, LIPID #### [facility] [address] [place] [address] Monocytes (Bld) [#/Vol] 0.9 10*3/uL High 0.0-0.8 [facility] Comment on above: Order Comment: Reaso n for Exam Essential hypertension Performed By: #### V [id number], CMP, CBC, LIPID #### [facility] [address] [place] [address] [place] Monocytes/100 WBC (Bld) 10.4 % Normal . [facility] Comment on above: Order Comment: Reaso n for Exam Essential hypertension Performed By: #### V [id number], CMP, CBC, LIPID #### [facility] [address] [place] [address] [place] Neutrophils (Bld) [#/Vol] 5.0 10*3/uL Normal 1.8-7.7 [facility] Comment on above: Order Comment: Reaso n for Exam Essential hypertension Performed By: #### V [id number], CMP, CBC, LIPID #### [facility] [address] [place] [address] [place] Neutrophils/100 WBC (Bld) 57.2 % Normal . [facility] Comment on above: Order Comment: Reaso n for Exam Essential hypertension Performed By: #### V [id number], CMP, CBC, LIPID #### [facility] [address] [place] [address] [place] Nucleated RBC/100 WBC (Bld) [Ratio] 0.1 % Normal 0-0.5 [facility] Comment on above: Order Comment: Reaso n for Exam Essential hypertension Performed By: #### V [id number], CMP, CBC, LIPID #### [facility] [address] [place] [address] [place] Platelet mean volume (Bld) [Entitic vol] 11.0 fL High 6.6-10.1 [facility] Comment on above: Order Comment: Reaso n for Exam Essential hypertension Performed By: #### V [id number], CMP, CBC, LIPID #### [facility] [address] [place] [address] [place] Platelets (Bld) [#/Vol] 159 10*3/uL Normal 150-450 [facility] Comment on above: Order Comment: Reaso n for Exam Essential hypertension Performed By: #### V [id number], CMP, CBC, LIPID #### [facility] [address] [place] [address] [place] RBC (Bld) [#/Vol] 5.29 10*6/uL Normal 3.90-5.60 [facility] Comment on above: Order Comment: Reaso n for Exam Essential hypertension Performed By: #### V [id number], CMP, CBC, LIPID #### [facility] [address] [place] [id number] [facility] WBC (Bld) [#/Vol] 8.8 10*3/uL Normal 4.5-11.0 [facility] Comment on above: Order Comment: Reaso n for Exam Essential hypertension Performed By: #### V [id number], CMP, CBC, LIPID #### [facility] [address] Comprehensive Metabolic Pane davi 10-26-2020 Albumin [Mass/Vol] 3.9 g/dL Normal 3.2-5.5 [facility] Comment on above: Order Comment: PT FA STED 11 HRS Reason for Exam Essential hypertension Reason for Exam Essential hypertension;Vitamin D deficiency Performed By: #### V [id number], CMP, CBC, LIPID #### [facility] [address] Albumin/Globulin [Mass ratio] 1.6 {ratio} Normal [facility] Comment on above: Order Comment: PT FA STED 11 HRS Reason for Exam Essential hypertension Reason for Exam Essential hypertension;Vitamin D deficiency Performed By: #### V [id number], CMP, CBC, LIPID #### [facility] [address] [place] [id number] [facility] ALP [Catalytic activity/Vol] 75 U/L Normal 32-92 [facility] Comment on above: Order Comment: PT FA STED 11 HRS Reason for Exam Essential hypertension Reason for Exam Essential hypertension;Vitamin D deficiency Performed By: #### V [id number], CMP, CBC, LIPID #### [facility] [address] [place] [id number] [facility] ALT [Catalytic activity/Vol] 40 U/L Normal 10-60 [facility] Comment on above: Order Comment: PT FA STED 11 HRS Reason for Exam Essential hypertension Reason for Exam Essential hypertension;Vitamin D deficiency Performed By: #### V [id number], CMP, CBC, LIPID #### [facility] [address] [place] [id number] [place] AST [Catalytic activity/Vol] 23 U/L Normal 10-42 [facility] Comment on above: Order Comment: PT FA STED 11 HRS Reason for Exam Essential hypertension Reason for Exam Essential hypertension;Vitamin D deficiency Performed By: #### V [id number], CMP, CBC, LIPID #### [facility] [address] [place] [address] [place] Bilirubin [Mass/Vol] 0.5 mg/dL Normal 0.3-1.2 [facility] Comment on above: Order Comment: PT FA STED 11 HRS Reason for Exam Essential hypertension Reason for Exam Essential hypertension;Vitamin D deficiency Performed By: #### V [id number], CMP, CBC, LIPID #### [facility] [address] [place] [id number] [facility] Calcium [Mass/Vol] 9.3 mg/dL Normal 8.2-10.2 [facility] Comment on above: Order Comment: PT FA STED 11 HRS Reason for Exam Essential hypertension Reason for Exam Essential hypertension;Vitamin D deficiency Performed By: #### V [id number], CMP, CBC, LIPID #### [facility] [address] [place] [address] [place] Chloride [Moles/Vol] 102 mmol/L Normal 95-114 [facility] Comment on above: Order Comment: PT FA STED 11 HRS Reason for Exam Essential hypertension Reason for Exam Essential hypertension;Vitamin D deficiency Performed By: #### V [id number], CMP, CBC, LIPID #### [facility] [address] [place] [id number] [place] CO2 [Moles/Vol] 27.8 mmol/L Normal 22.0-30.0 [facility] Comment on above: Order Comment: PT FA STED 11 HRS Reason for Exam Essential hypertension Reason for Exam Essential hypertension;Vitamin D deficiency Performed By: #### V [id number], CMP, CBC, LIPID #### [facility] [address] [place] [id number] [place] Creatinine [Mass/Vol] 1.17 mg/dL Normal 0.64-1.27 [facility] Comment on above: Order Comment: PT FA STED 11 HRS Reason for Exam Essential hypertension Reason for Exam Essential hypertension;Vitamin D deficiency Performed By: #### V [id number], CMP, CBC, LIPID #### [facility] [address] [place] [id number] [place] Estimated GFR ( Henny > 60 Normal [facility] Comment on above: Order Comment: PT FA STED 11 HRS Reason for Exam Essential hypertension Reason for Exam Essential hypertension;Vitamin D deficiency Result Comment: GFR estimated reference range: According to KDOQI guidelines, <60 ml/min/1.73m2 is sufficient to diagnose a patient with chronic kidney disease. Performed By: #### V [id number], CMP, CBC, LIPID #### [facility] [address] Estimated GFR (Non- Am > 60 Normal [facility] Comment on above: Order Comment: PT FA STED 11 HRS Reason for Exam Essential hypertension Reason for Exam Essential hypertension;Vitamin D deficiency Performed By: #### V [id number], CMP, CBC, LIPID #### [facility] [address] Globulin (S) [Mass/Vol] 2.5 g/dL Normal [facility] Comment on above: Order Comment: PT FA STED 11 HRS Reason for Exam Essential hypertension Reason for Exam Essential hypertension;Vitamin D deficiency Performed By: #### V [id number], CMP, CBC, LIPID #### [facility] [address] [place] [id number] [facility] Glucose [Mass/Vol] 114 mg/dL High 70-100 [facility] Comment on above: Order Comment: PT FA STED 11 HRS Reason for Exam Essential hypertension Reason for Exam Essential hypertension;Vitamin D deficiency Result Comment: [place] om Glucose Reference Range is dependent on time and content of last meal. Glucose of more than 200 mg/dL in a nonstressed, ambulatory subject supports the diagnosis of Diabetes Mellitus. ADA recommended reference range Performed By: #### V [id number], CMP, CBC, LIPID #### [facility] [address] Potassium [Moles/Vol] 3.8 mmol/L Normal 3.5-5.1 [facility] Comment on above: Order Comment: PT FA STED 11 HRS Reason for Exam Essential hypertension Reason for Exam Essential hypertension;Vitamin D deficiency Performed By: #### V [id number], CMP, CBC, LIPID #### [facility] [address] [place] [id number] [facility] Protein [Mass/Vol] 6.4 g/dL Normal 6.1-7.9 [facility] Comment on above: Order Comment: PT FA STED 11 HRS Reason for Exam Essential hypertension Reason for Exam Essential hypertension;Vitamin D deficiency Performed By: #### V [id number], CMP, CBC, LIPID #### [facility] [address] Sodium [Moles/Vol] 137 mmol/L Normal 136-146 [facility] Comment on above: Order Comment: PT FA STED 11 HRS Reason for Exam Essential hypertension Reason for Exam Essential hypertension;Vitamin D deficiency Performed By: #### V [id number], CMP, CBC, LIPID #### [facility] [address] [place] [address] Urea nitrogen [Mass/Vol] 15 mg/dL Normal 9-23 [facility] Comment on above: Order Comment: PT FA STED 11 HRS Reason for Exam Essential hypertension Reason for Exam Essential hypertension;Vitamin D deficiency Performed By: #### V [id number], CMP, CBC, LIPID #### [facility] [address] [place] [address] Lipid Panelon 10-26-2020 Cholesterol [Mass/Vol] 205 mg/dL High 140-200 [facility] Comment on above: Order Comment: PT FA STED 11 HRS Reason for Exam Essential hypertension Reason for Exam Essential hypertension;Vitamin D deficiency Result Comment: Chol less than 200 mg/dl low risk Chol 201-239 mg/dl borderline risk Chol 240 mg/dl and greater high risk Performed By: #### V [id number], CMP, CBC, LIPID #### [facility] [address] [place] [address] Cholesterol in HDL [Mass/Vol] 24 mg/dL Low 29-71 [facility] Comment on above: Order Comment: PT FA STED 11 HRS Reason for Exam Essential hypertension Reason for Exam Essential hypertension;Vitamin D deficiency Result Comment: HDL CHOL ATP-III CLASSIFICATION Cardiovascular Risk HDL > or equal to 60 mg/dL LOW HDL < 40 mg/dL HIGH Performed By: #### V [id number], CMP, CBC, LIPID #### [facility] [address] Cholesterol.total/Ch olesterol in HDL [Mass ratio] 8.5 {ratio} Normal <5.0 [facility] Comment on above: Order Comment: PT FA STED 11 HRS Reason for Exam Essential hypertension Reason for Exam Essential hypertension;Vitamin D deficiency Performed By: #### V [id number], CMP, CBC, LIPID #### [facility] [address] LDL Cholesterol,Calculat ed 131 mg/dL High 0-100 [facility] Comment on above: Order Comment: PT FA STED 11 HRS Reason for Exam Essential hypertension Reason for Exam Essential hypertension;Vitamin D deficiency Result Comment: LDL ATP III CLASSIFICATION LDL less than 100 mg/dL Optimal LDL 100-129 mg/dL Near or above optimal LDL 130-159 mg/dL Borderline high LDL 160-189 mg/dL High LDL greater than 189 mg/dL Very high Performed By: #### V [id number], CMP, CBC, LIPID #### [facility] [address] Triglyceride w/Reflex 248 mg/dL High 35-149 [facility] Comment on above: Order Comment: PT [...] (CDC) test method. Performed By: #### V [id number], CMP, CBC, LIPID #### [facility] [address] VLDL CHOLESTEROL 49 mg/dL Normal [facility] Comment on above: Order Comment: PT FA STED 11 HRS Reason for Exam Essential hypertension Reason for Exam Essential hypertension;Vitamin D deficiency Performed By: #### V [id number], CMP, CBC, LIPID #### [facility] [address] [place] [address] [facility] Vitamin D 25 Hydroxy Totalon 10-26-2020 Vitamin D 25 Hydroxy Total 50.8 ng/mL Normal 30-100 [facility] Comment on above: Order Comment: PT [...] practice guideline. JCEM. 2010; 96(7):1911-30. PERFORMED BY: [place] [id number] PATHOLOGIST ASSORTER PATTI DE M.D. Performed By: #### V [id number], CMP, CBC, LIPID #### [place] [id number] [facility] Encounters Encounter Date Encounter Type Care Provider Facility Start: 12-02-2024 ambulatory TACO SPENCE [facility] Start: 11-20-2024 ambulatory [facility] Start: 11-20-2024 End: 11-20-2024 ambulatory [facility] Start: 10-17-2024 ambulatory [facility] Start: 10-17-2024 Encounter for other preprocedural examination [facility] Start: 10-11-2024 End: 10-11-2024 [facility] Start: 10-04-2024 End: 10-04-2024 ambulatory ERIN HESS [facility] Start: 10-04-2024 Evaluation and manag ement of inpatient [facility] Start: 10-04-2024 Evaluation and manag ement of inpatient [facility] Start: 10-03-2024 Evaluation and manag ement of inpatient NIDA [facility] LAK[place]I [facility] Start: 10-02-2024 End: 10-04-2024 Evaluation and management of inpatient MERRILL HERNÁNDEZ [facility] Payers Date Payer Category Payer Unknown [id number] Clinical Notes 10-02-2024 to 12-02-2024 Note Date & Type Note Facility 12-02-2024 Note CARDIOLOGY PHARMACIS T VISIT - HEART FAILURE TELEPHONE (AUDIO ONLY) CONSULT Referring Provider: Dr. Keene/ Dr. [facility] Location: [facility] Most recent cardiology visit: 10/11/24 Insurance: [...] congestion) (furosemide 40mg) [] Hydralazine/Isosorbide (persistently symptomatic -Martiniquais patients despite GDMT, NYHA class III-IV) Adherence: [...] and PharmD: Yes Taco Spence PharmD, BCACP [facility] Cardiology 12/10/24 [1] Patient Active Problem List Diagnosis NSTEMI (non-ST elevated myocardial infarction) ([facility]) Primary hypertension HFrEF (heart failure with reduced ejection fraction) ([facility]) Obesity Tobacco use disorder Multi-vessel coronary artery stenosis Hyperlipidemia Coronary artery disease involving [place] coronary artery of [place] heart with unstable angina pectoris ([facility]) S/P coronary artery stent placement [facility] 11-20-2024 Note Spoke with patient a nd scheduled for visit on 12/02 at 2pm. Patient does live in [place] and is seen at the [facility], so will need to do telemedicine with him. Taco Spence PharmD, BCACP [facility] Cardiology 11/25/24 [facility] 11-20-2024 Note PHARMD CARDIOLOGY CO NSULT - NEW CONSULT 11/20/24 Referring Provider: Dr. Keene Clinic: [facility] Cardiology-- saw outpatient cardiology at Cardiology Magaly Yung is referred to clinic pharmacists for GLP initiation and lipid management (hx of CAD, HTN, HLD, HFrEF, obesity, LDL goal < 55). Electronic order received from patient's cardiology provider. Will call patient to schedule. Celine Levy, Mahendra [facility] Cardiology [facility] 11-20-2024 Note Cardiology I placed referral order to [place] cardiology pharmacist to help with lipid management [...] in outpatient follow up Mikael Keene MD tool shaper set up operator [facility]ventional [facility] [place] [facility] Pager: [phone] Diagnosis Plan 1. HFrEF (heart failure with reduced ejection fraction) ([facility]) Ambulatory referral to Cardiology Pharmacist 2. Multi-vessel coronary artery stenosis Ambulatory referral to Cardiology Pharmacist 3. Coronary artery disease involving [place] coronary artery of [place] heart with unstable angina pectoris ([facility]) Ambulatory referral to Cardiology Pharmacist 4. Primary hypertension Ambulatory referral to Cardiology Pharmacist 5. Tobacco use disorder Ambulatory referral to Cardiology Pharmacist 6. Class 2 severe obesity due to excess calories with serious comorbidity and body mass index (BMI) of 39.0 to 39.9 in adult ([facility]) Ambulatory referral to Cardiology Pharmacist 7. Mixed hyperlipidemia Ambulatory referral to Cardiology Pharmacist 8. S/P coronary artery stent placement Ambulatory referral to Cardiology Pharmacist [facility] 11-20-2024 Note Patient: Magaly prakash Procedure Information Date/Time: 11/20/24 1030 Procedures: Coronary angiography - PC Approved 10/30-11/28 Percutaneous coronary intervention Location: [facility] WORKER 3 / [facility] (Cath) Providers: Mikael Keene MD Clinical information reviewed: Allergies Meds Physical Exam Airway Mallampati: III TM distance: <3 FB Cardiovascular Rhythm: regular Rate: normal Dental Pulmonary Abdominal Anesthesia Plan ASA 3 other (Conscious ) Anesthetic plan and risks discussed with patient. Use of blood products discussed with patient who consented to blood products. Plan discussed with attending. Additional Equipment Requests [facility] 10-28-2024 Note Cardiology I had heart team [...] Diagnosis Plan 1. Primary hypertension Case Request Desk Director: Coronary angiography, Percutaneous coronary intervention 2. Multi-vessel coronary artery stenosis Case Request Desk Director: Coronary angiography, Percutaneous coronary intervention 3. HFrEF (heart failure with reduced ejection fraction) ([facility]) Case Request Desk Director: Coronary angiography, Percutaneous coronary intervention 4. Coronary artery disease of [place] artery of [place] heart with stable angina pectoris 5. Tobacco use disorder Case Request Desk Director: Coronary angiography, Percutaneous coronary intervention 6. Mixed hyperlipidemia Case Request Desk Director: Coronary angiography, Percutaneous coronary intervention 7. Class 2 severe obesity due to excess calories with serious comorbidity and body mass index (BMI) of 39.0 to 39.9 in adult ([facility]) Case Request Desk Director: Coronary angiography, Percutaneous coronary intervention 8. Coronary artery disease involving [place] coronary artery of [place] heart with unstable angina pectoris ([facility]) Case Request Desk Director: Coronary angiography, Percutaneous coronary intervention Lab on [...] Bilirubin, Urine 10/17/2024 Negative Negative Final Specific Ralph, Urine 10/17/2024 1.015 1.010 - 1.030 Final [...] eGFR 10/17/2024 65.8 >60.0 mL/min/1.73m*2 Final The [facility]???s estimated glomerular filtration rate (eGFR) will no [...] RANGE. CHEST 1995;[id number] (more content not included)... [facility] 10-11-2024 Note [facility] Note Reason for cardiology visit: Follow-up on coronary artery disease, ischemic cardiomyopathy and chronic heart failure, hypertension, and hyperlipidemia HPI: Magaly Yung is a 49 y.o. male who presented 09/30/2024 to [facility] with chest pain of 3 days duration associated with worsening shortness of breath, he was severely hypertensive on arrival and BNP was elevated. His echo showed ejection fraction of 15 to 20%. He was sent to [facility] for cardiac catheterization performed 10/02/2024 [...] infarction (CMS/HCC), NSTEMI (non-ST elevated myocardial infarction) (CMS/[facility]), Obesity, and Pulmonary edema. Surgical History He [...] 211 (H) 10/03/19 (more content not included)... [facility] 10-04-2024 Note Hospital Medicine Discharge Summary Final Discharge Diagnosis: Severe multivessel coronary artery disease Acute decompensated systolic heart failure with reduced ejection fraction, NYHA class II Tobacco use disorder Essential hypertension Mixed hyperlipidemia Class II obesity Admission Diagnosis: NSTEMI (non-ST elevated myocardial infarction) (CMS/[facility]) [I21.4] Hospital course: Magaly Yung is an 49 y.o. ld white male admitted from [facility] as a direct transfer where he presented with intermittent chest pains described as anterior chest dull to pressure-like associated with dyspnea radiating to left pain started a week back pain unrelated to activity but 4 days back got worse so he decided to go to the ER where he was admitted to [facility]. Patient denies any history of hypertension coronary [...] to tobacco use his BNP done at [facility] was 448 BUN was 15.9 creatinine 1.13 [...] Center 10/11/2024 2:40 PM Essence Waldron MD [facility] Your medication list START taking these [...] Medications These medications were sent to [facility] - [address] [place] [address] [address] [facility] [place] [address], [facility] [address] aspirin 81 mg chewable tablet atorvastatin 40 [...] 0418 10/02/24 1953 (more content not included)... [facility] 10-04-2024 Note Stop bang score of 3 , Sleep referral ordered for OP [facility] 10-04-2024 Note Cardiothoracic Surge ry Progress Note 10/04/2024 Room: [address] [place] [address] Bobo Yung is a 49 y.o. male with PMH of smoker, obesity, strong family history of CAD who presented to [facility] as a direct transfer where he was experiencing intermittent chest pain, described as anterior chest dull to pressure-like associated with dyspnea radiating to left. [facility] labs remarkable for BNP 448, BUN 15.9, [...] is somewhat limited. He was transferred to [facility] for cardiac catherization. Underwent cardiac [...] is seen f (more content not included)... [facility] 10-04-2024 Note [facility] CARDIOLOGY INPAT IENT PROGRESS [...] no medications at all. 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 10/02/2024 he was transferred from [facility] for non-STEMI with angina and acute heart failure with preserved EF. Complaining of intermittent dull to pressure-like anterior chest discomfort associated with dyspnea radiating to left arm. Over the past 2 months patient had noticed gradually worsening BERNAL and the dull midsternal prssure to left arm then gradually worsening LE edema. At [facility] labs remarkable for BNP 448, BUN 15.9, Creatinine 1.13, High Sensitivity Troponin 25.9, later normalized. Echocardiogram found EF 15-20% with grade 3 LVDD, moderate concentric LVH and global hypokinesis. EKG with sinus rhythm and nonspecific ST-T wave changes. At [facility], repeat echocardiogramfound [facility] found severe multivessel CAD and [...] LDL 190 10/02/2024 No results found for: [id number] , IRON , TIBC , C3 , C4 , TALA , CANCA , ASO , PSA , CEA , CA125 , CA1 (more content not included)... [facility] 10-03-2024 Note Continue lisinopril. [facility] 10-03-2024 Note S/p cardiac cath 10/02 [facility] 10-03-2024 Note Patient has a smokin g history of more than 20 pack years a day. [facility] 10-03-2024 Note NYHA class II Continue continue IV Lasix Continue lisinopril, Coreg, Aldactone, Farxiga [facility] 10-03-2024 Note Class II obesity [facility] 10-03-2024 Note Cardiac catheterizat ion 10/02 showed multivessel disease, LVEDP 30 CT surgery consulted for CABG evaluation [facility] [facility] [place] 10-03-2024 Note Hospital Medicine Daily Progress Note - 10/03/2024 1:24 PM; Room: [address] [place] [address] Admission: 10/02/2024 1:50 AM; Length of stay: 1 days THE HOSPITALIST TEAM PREFERS TO USE [employer] FOR NON-URGENT COMMUNICATION 7AM-7PM. IF I DO NOT RESPOND WITHIN 20 MINUTES OR URGENT MATTERS, PLEASE CALL THROUGH THE JIG BORING MACHINE OPERATOR FOR METAL. FROM 7PM-7AM, PLEASE PAGE [phone](COVR). Code Status: Full Code Barriers to Discharge: [...] Assessment & Plan Coronary artery disease of [place] artery of [place] heart with stable angina pectoris Cardiac catheterization 10/02 showed multivessel disease, LVEDP 30 CT surgery consulted for CABG evaluation NSTEMI (non-ST elevated myocardial infarction) ([facility]) S/p cardiac cath 10/02 Primary hypertension Continue lisinopril. HFrEF (heart failure with reduced ejection fraction) ([facility]) NYHA class II Continue continue IV Lasix [...] LDL 190 10/02/2024 No results found for: SAHELNIY88 , IRON , TIBC , C3 , C4 , TALA , CANCA , ASO , PSA , CEA , CA125 , CA199 , AFP , CA153 Imaging Pulmonary function testing Consuelo Fernandes, LEATHER SHAVER 10/03/2024 12:49 PM Bedside Spirometry uploaded into [employer]. Vascular US lower extremity vein mapping bilateral [...] were evaluated bilaterall (more content not included)... [facility] [place] 10-03-2024 Note Bedside Spirometry u ploaded into Electrical Experimental Mechanic. 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 ---- Cardiology Progress Note HPI: Magaly Yung is a 49 y.o. male with insignificant medical history, other than tobacco use disorder for 20 years, presenting from [facility] with chest pain Patient reports that he has been endorsing continued chest pain of 1 week duration, it become worse yesterday so he went to [facility]. Associated with diaphoresis, feels like a pressure, 5 out of 10, no radiation. Patient has a brother that with heart attack at the age of 42, mother at age of 47, at [facility] patient echo showed heart failure with reduced [...] deficit present. Mental (more content not included)... [facility] [place] 10-02-2024 Note Patient admitted to the hospital for: NSTEMI. Chart echo noted in the admit progress notes, from 09/30/2024 [facility] reports: EF 15-20 %. Current echo report qualifies for Cardiac Rehab services per CMS eligibility criteria. A Cardiac Rehab referral diagnosis and code must also meet CMS criteria. Desiree Tyler, RN, BSN Cardiology Outpatient Coordinator Cardiopulmonary Rehab [facility] [place] 10-02-2024 Note Patient: Magaly Yung Procedure Information Date/Time: 10/02/24 1530 Procedures: Coronary angiography Right heart cath Location: [facility] (Cath) Providers: Mikael Keene [...] consented to blood products. Additional Equipment Requests [facility] [place] 10-02-2024 Note 10/02/24 1201 Admission Assessment Questions [...] Status Interested Does the patient have a caser shoe parts assigned to them through their insurance? No [...] activate MyChart? No Write sent email to [facility] registration about missing insurance in Epic. [facility] [place] 10-02-2024 Note Cycle troponin nitra tha Coreg [...] EF and NSTEMI anticipate left heart cath [facility] [place] 10-02-2024 Note We will check trigly cerides/lipid profile if triglycerides below 300 consider GLP-1 inhibitor discussed with patient about diet management dietary consult already in order for CHF and for obesity [facility] [place] 10-02-2024 Note Optimize guideline d irected medical therapy including Coreg lisinopril Aldactone and Farxiga consider changing DAVEY inhibitor to ARNI monitor I's and O's salt restricted diet core CHF measures in place [facility] [place] 10-02-2024 Note As above also would recommend outpatient sleep study [facility] [place] 10-02-2024 Note Hospital Medicine History and Physical 10/02/2024 2:45 AM THE HOSPITALIST TEAM PREFERS TO USE [employer] CHAT FOR NON-URGENT COMMUNICATION 7AM-7PM. IF I DO NOT RESPOND WITHIN 20 MINUTES OR URGENT MATTERS, PLEASE CALL THROUGH THE JIG BORING MACHINE OPERATOR FOR METAL. FROM 7PM-7AM, PLEASE PAGE [phone](COVR). Chief Complaint No chief complaint on file. History of Present Illness Magaly Yung is an 49 y.o. ld white male admitted from [facility] as a direct transfer where he presented with intermittent chest pains described as anterior chest dull to pressure-like associated with dyspnea radiating to left pain started a week back pain unrelated to activity but 4 days back got worse so he decided to go to the ER where he was admitted to [facility]. Patient denies any history of hypertension coronary [...] to tobacco use his BNP done at [facility] was 448 BUN was 15.9 creatinine 1.13 [...] HFrEF (heart failure with reduced ejection fraction) ([facility]) Optimize guideline directed medical therapy including Coreg [...] care setting f (more content not included)... [facility] [place] Summary Purpose Family History No Family History Records FoundNo Family History Records Found Advance Directives No Advanced Directives Records FoundNo Advanced Directives Records Found Additional Source Comments (unrecognized sect ion and content) No Status Records FoundNo Status Records Found INFORMATION SOURCE (unrecogn ized section and content) DATE CREATED AUTHOR 07/19/2021 [facility] DATE CREATED AUTHOR AUTHOR'S ORGANIZ ATION 12/12/2024 [facility] FOR RECORDS PERTAINING TO PATIENTS WHO ARE [...] BE BASED ON THE PRIMARY CLINICAL RECORDS. [employer] provides no warranty or guarantee of the accuracy or completeness of information in this document.
[2024-12-19 07:58] LABS: Alanine Aminotransferase 37 U/L (16-63); Albumin Globulin Ratio 0.9; Albumin Level 3.5 g/dL (3.4-5.0); Alkaline Phosphatase 144 U/L (46-116); Anion Gap 11.9; Aspartate Amino Transferase 14 U/L (15-37); Blood Urea Nitrogen 20.0 mg/dL (7.0-18.0); Calcium 9.3 mg/dL (8.5-10.1); Carbon Dioxide 31.8 mmol/L (21.0-32.0); Chloride 102 mmol/L (98-107); Cholesterol 133 mg/dL (<=200); Estimated GFR (African America 54 (>=60 mL/min/1.73m^2); Estimated GFR (Non-African Ame 45 (>=60 mL/min/1.73m^2); Globulin 3.9 g/dL; Glucose 191 mg/dL (74-106); HDL Cholesterol 25 mg/dL (40-60); Potassium 3.7 mmol/L (3.5-5.1); Sodium 142 mmol/L (136-145); Total Protein 7.4 g/dL (6.4-8.2); Triglycerides 227 mg/dL (<=150); VLDL CHOLESTEROL 45.4 mg/dL
== END 2024-12-19 07:16 | disposition home or self-care (01) ==
LOC: LAB 07:16
PROVIDERS: PCP Family Medicine
DX: E78.5 Hyperlipidemia, unspecified (principal); I50.20 Unspecified systolic (congestive) heart failure
CPT/HCPCS: 36415; 80053; 80061; 82172

== ENCOUNTER 2024-12-19 07:20 | Outpatient (OUT) | payer BC, SELFPAY ==
--- OUTSIDE RECORDS SUMMARY | 2014-10-07 13:30 | XMS_ITS | Continuity of Care Document ---
Author Organization [facility] Address [address] [place] [address] Phone Care Team Providers Care Forest Ranger Name Role Phone Dhiraj GERBER, Fort[place] Unavailable Unavailable Procedures Procedure Date IMMUNIZATION ADMIN TDAP VACCINE >7 IM IMMUNIZATION ADMIN TDAP VACCINE >7 IM Advance Directives Directive Yes / No Effective Date File Name No Information Encounters Encounter Description Practice Location Reason(s) For Visit Diagnoses Date Provider Providers Copied on Encounter [facility], [address], [place], [id number], [place] tel:[phone] [facility] No Information Dhiraj SALAZAR [place]. [address], [place], [id number], [place]. tel:[phone] Family History Family Member Type Diagnosis Age At Onset No Information Immunizations Vaccine Date Status Comments Tdap administered Source: [facility] unization Record Payers Payer name Insurance type Covered democrat ID Lesa womack(s) Medical [place] CI [id number] Medical [place] CI [id number] [place] Benefits CI 43 Social History Type Description [...]
--- OUTSIDE RECORDS SUMMARY | 2024-06-27 09:45 | XMS_ITS ---
Author Organization [facility] es Address [address] [place] [address] Care Team Providers Care Skill Labor Name Role Phone Nahid Lantigua Primary Care Provider [phone] REASON FOR VISIT EST CARE, HOSP F/U; BP Encounters Encounter Location Date Provider Diagnosis [facility] [address] [place] [address] 06/27/2024 Nahid Lantigua Plan Of Treatment No Information Progress Notes * VIVIANA MAGDALENOOB:1975 ( 49 yo M)Acc No.[id number]:06/27/2024 Progress Notes Patient: Rocío REYNA MAGALY Provider: Jess Latnigua :1975 A ge:48 Y S ex:Male Date:06/27/2024 [facility] [id number] Subjective: * Chief Complaints: * 1 . EST CARE, HOSP F/U; BP. * Medical History: Objective: * Vitals: Assessment: Plan: * Treatment: Care Plan: * Problems: * Images: * Electronic signature of Fernando Lantigua DO on 12/19/2024 at 07:22 AM EDT Sign off status: Pending * Provider: Jess Lantigua Date: 0 06/27/2024 Generated for Giovanna valerio/Annamaria/Stephanie on: 0 12/19/2024 07:22 AM EDT
--- OUTSIDE RECORDS SUMMARY | 2024-10-07 06:00 | XMS_ITS ---
Author Organization The [facility] in [place] Address [address] [place] [address] Care Team Providers Care Field Sales Consultant Name Role Phone Herbieskye Guero Primary Care Provider [phone] REASON FOR VISIT p2p Problems Problem Type SNOMED Code ICD Code Onset Dates Problem Status W/U Status Risk Notes Problem Congestive heart failure (53874386) Congestive heart failure (I50.9) Active confirmed Encounters Encounter Location Date Provider Diagnosis [facility] [address] [place] [address] 10/07/2024 Guero Hernández Congestive heart failure I50.9 Assessments Encounter Date Diagnosis (ICD Code) Assessment Notes Treatment Notes Treatment Clinical Notes Section Notes 10/07/2024 Congestive heart failure (ICD-10 - I50.9) Plan Of Treatment No Information Progress Notes * Benny CARSONOB:1975 ( 49 yo M)Acc No.[id number]:10/07/2024 Patient: Rodrigo BEAR Provider: Mono Hernández ([facility])MD :1975 A ge:49 Y S ex:Male Date:10/07/2024 [facility] [id number] Check In:09:19 AM ESTCheck O ut:02:20 PM EST Subjective: * Chief Complaints: * P 2p * HPI: G eneral: 20 minute highly frustrating conversation with , stated that sinc he was better on kierra day of d/c that the entire stay is observation. * Active Problem List I10 Hypertension Modified On:10/09/2024/U Status:confirmed I50.9 Congestive heart kangjan pacheco Modified On:10/07/2024 Status:confirmed I25.10 CAD (coronary artery disease) Modified On:10/09/2024 Status:confirmed * Medical History: * Medications: Objective: * Vitals: Assessment: * Assessment: 1. C ongestive heart failure - I50.9 (Primary) Plan: * Treatment: * Procedure Codes: 9 9254 CONS INPT,NPEST,COMP,(M) * * Sign off status: Completed Visit Status: C HK (Check Out) true * Provider: Mono Hernández ([facility])MD Date: 0 10/07/2024 Generated for Giovanna valerio/Annamaria/eTtaneshasmitting on: 12/19/2024 07:22 AM EDT History and Physical Notes * HPI (History of Present Illness) Category Sub-Category Detail Notes Category Not es General 20 minute highl y frustrating conversation with , stated that sinc he was better on day of d/c that the entire stay is observation
--- OUTSIDE RECORDS SUMMARY | 2024-10-07 10:15 | XMS_ITS ---
Author Organization The [facility] in [place] Address [address] [place] [address] Care Team Providers Care Special Delivery Clerk Name Role Phone Guero Hernández Primary Care Provider [phone] REASON FOR VISIT Cath- F/U Encounters Encounter Location Date Provider Diagnosis [facility] [address] [place] [address] 10/07/2024 Guero Hernández Plan Of Treatment No Information Progress Notes * Benny CARSONOB:1975 ( 49 yo M)Acc No.[id number]:10/07/2024 Patient: Rusty Rodrigo REYNA :1975 A ge:49 Y S ex:Male Address:[address] [place], [address] * true * Date: Generated for Racieli iman/Annamaria/eTransmitting on: 0 12/19/2024 07:21 AM EDT
--- OUTSIDE RECORDS SUMMARY | 2024-10-09 09:45 | XMS_ITS ---
Author Organization [facility] in [place] Address [address] [place] [address] Care Team Providers Care Drawer In Plain Loom Name Role Phone Guero Hernández Primary Care [...] Status W/U Status Risk Notes Problem Hypertension (88933803) Hypertension (I10) Active confirmed Problem Coronary artery disease (58712356) CAD (coronary artery disease) (I25.10) Active confirmed Vital Signs Blood pressure systolic 134 mm Hg 10/10/19 25 Blood pressure diastolic 82 mm Hg 025 Height 6ft 2Inches in 10/09/2024 Weight 309 lbs 10/09/2024 BMI 39.67 kg/m2 10/09/2024 Encounters Encounter Location Date Provider Diagnosis [facility] [address] [place] [address] 10/09/2024 Guero Hernández Hypertension I10 ; Congestive [...] * Benny CARSONOB:1975 ( 49 yo M)Acc No.[id number]:10/09/2024 Progress Note Patient: Rodrigo BEAR Provider: Mono Hernández ([facility])MD :1975 A ge:49 Y S ex:Male Date:10/09/2024 Address:[address] [place], [place] [id number] Check In:01:41 PM ESTCheck O ut:02:27 PM [...] T onsilectomy * Hospitalization/Major Diagno stic Procedure: [facility] Congestive Heart Failure and Hypertension 09/2024 [...] Procedure Codes: * Preventive Medicine: Screenings/Counseling: B NV ACTION PLAN Above Normal BMI Follow-up D ietary management education, guidance, and counseling * * Sign off status: Completed Visit Status: C HK (Check Out) true * Provider: Mono Hernández ([facility])MD Date: 0 10/09/2024 Generated for Printi ng/Faxing/eTransmitting on: 0 12/19/2024 07:22 AM EDT History and Physical [...]
--- OUTSIDE RECORDS SUMMARY | 2024-12-19 07:22 | XMS_ITS | Clinical Summary ---
Author Organization [facility] Healthcare Address [address] [place] [address] Care Team Providers Care Distilling Department Supervisor Name Role Phone Claude Hernández MD Primary Care Provider [phone] Social History Tobacco Use Types Packs/Day Years Used Date Smoking Tobacco: Never Assessed Sex and Gender Information Value Date Recorded Sex Assigned at Not on file Legal Sex Male 7:17 PM EDT Gender Identity Not on file Sexual Orientation Not on file Last Filed Vital Signs Vital Sign Reading Time Taken Comments Blood Pressure 138/84 01/20/2021 12:00 PM EDT Pulse - - Temperature - - Respiratory Rate - - Oxygen Saturation - - Inhaled Oxygen Concentration - - Weight 134 kg (295 lb) 01/20/2021 12:00 PM EDT Height 179.1 cm (5' 10.5 ) 01/20/2021 12:00 PM E DT Body Mass Index 41.73 01/20/2021 12:00 PM EDT Plan of Treatment Not on file Care Teams Distilling Department Supervisor Relationship Specialty Start Date End Date Claude Hernández MD PCP - General Family Medicine 10/07/24
--- OUTSIDE RECORDS SUMMARY | 2024-12-19 07:22 | XMS_ITS | Patient Health Record ---
Author Organization [facility] [place] Address [address] [place] [address] Care Team Providers Care Service Crew Supervisor Name Role Phone Guero Hernández Primary Care Provider [phone] Allergies Allergen (clinical drug ingredient) Drug/Non Drug Allergy documented on EMR Reaction Allergy Type Onset Date Status Penicillin anaphylaxis Drug Allergy Acti ve Results Component Value Reference Range Notes CA echo doppler complete Reviewed date:09/30/2024 08:17:54 PM Interpretation: Performing Lab: Notes/Report: Source Facility: [place] [address] Cardiology Report Signed Patient: MAGALY CARSON MR#: [id number] : 1975 Acct:[id number] Age/Sex: 49 / M ADM Date: 09/28/24 Loc: [place] 215-[address]: Claude Hernández M.D. Ordering Physician: Claude Hernández M.D. Date of Service: 09/30/24 Procedure(s): CA echo doppler complete Accession Number(s): [id number] cc: Claude Hernández M.D.; Physician,Non-Staff Rayne Patient Name: MAGALY CARSON MR#: [id number] : 1975 Exam Date: 09/30/2024 Ordering Doctor: [...] M.D. Signed By: 09/30/241436 DD/ 34 TD/TT: Blood Bank Assistant: [place] [address] Cardiology Report Signed Patient: MAGALY CARSON MR#: [id number] : 1975 Acct:[id number] Age/Sex: 49 / M ADM Date: 09/28/24 Loc: [place] 215-[address]: Benigno Hernández M.D. Ordering Physician: Claude Hernández M.D. Date of Service: 09/30/24 Procedure(s): CA ech o doppler complete Accession Number(s): [id number] cc: Claude Hernández M.D. ; Physician,Non-Staff Rayne Patient Name: MAGALY CARSON MR#: [id number] : 1975 Exam Date: 09/30/2024 Ordering Doctor: [...] Signed By: 09/30/24 1437 DD/ 1435 TD/TT: Blood Bank Assistant: CBC AUTO DIFF Reviewed date:11/13/2024 06:07:41 PM Interpretation: Performing Lab: Notes/Report: [facility] , White Blood Count 12.9 4.0-11.0 10 [...] 3/uL Performing Lab: see note ML - [facility] LB PROF CHEM 8 ([employer]) Reviewed date:11/13/2024 06:07:41 PM Interpretation: Performing Lab: Notes/Report: [facility] , Sodium 140 136-145 mmol/L Potassium 4.3 [...] Performing Lab: see note ML - [facility] LB PROF CHEM 8 ([employer]) Reviewed date:10/01/2024 01:04:29 PM Interpretation: Performing Lab: Notes/Report: [facility] , Sodium 140 136-145 mmol/L Potassium 3.2 [...] mg/dL Performing Lab: see note ML - [facility] LB CBC AUTO DIFF Reviewed date:10/01/2024 01:04:29 PM Interpretation: Performing Lab: Notes/Report: [facility] , White Blood Count 11.0 4.0-11.0 10 [...] Performing Lab: see note ML - [facility] LB BNP Reviewed date:10/01/2024 01:04:29 PM Interpretation: Performing Lab: Notes/Report: [facility] , NT Pro B Type Natriuretic Pept 446.0 <=450.0 pg/mL Performing Lab: see note ML - [facility] LB Reason For Referral No [...] Status W/U Status Risk Notes Problem Cardiomegaly (3960230) Cardiomegaly (I51.7) Active confirmed Problem Morbid obesity (342067253) Morbid obesity (E66.01) Active confirmed Problem Hypertension (17338684) Hypertension (I10) Active confirmed Problem Congestive heart failure (98212597) Congestive heart failure (I50.9) Active confirmed Problem Coronary artery disease (98741218) CAD (coronary artery disease) (I25.10) Active confirmed Problem Pulmonary edema (44275756) Pulmonary edema (J81.1) Active confirmed Problem Hypertensive urgency (992655563) Hypertensive urgency (I16.0) Active confirmed Vital Signs Blood pressure diastolic 82 mm Hg 10/09/2024 Height 6ft 2Inches in 10/09/2024 Blood pressure systolic 134 mm Hg 10/09/2024 Weight 309 lbs 10/09/2024 BMI 39.67 kg/m2 10/09/2024 Encounters Encounter Location Date Provider Diagnosis [address] [address] 09/30/[address] [address] 10/07/[address] [address] 10/09/2024 Guero Stonery Hypertension I10 ; Congestive heart failure I50.9 and CAD (coronary artery disease) I25.[address] [address] 10/07/2024 Guero Hernández Congestive heart kang lure [...] ACCESS PPO PLUS LOCAL PLAN [address] [place] [address] [phone] [id number] Magaly Carson Self - patient is the insured Medical (General) History Medical History History ICD Code Hypertension I10 Congestive heart failure I50.9 Surgical History Surgery Date(Month/Year) Tonsilectomy Hospitalization History Reason Date(Month/Year) [facility] Congestive Heart F ailure and Hypertension 09/2024
--- OUTSIDE RECORDS SUMMARY | 2024-12-19 07:22 | XMS_ITS | Encounter Summary ---
Author Organization [facility] Address [address] [place] [address] Care Team Providers Care Senior Service Aide Name Role Phone Claude Hernández MD Primary Care Provider [phone] Encounter Details Date Type Department Care Team (Late st Contact Info) Description 12/01/2024 Results Follow-Up [facility] Cardiology [address] [place] [address] Li Waldron MD [address] [place] [address] Cardiac catheterization Social History Tobacco Use Types Packs/Day Years Used Date Smoking Tobacco: Former Cigarettes Smokeless Tobacco: Current Chew [facility] Utilities Answer Date Recorded In the past 12 months has e electric, gas, oil, or water company threatened to shut off services in your home? No 10/02/2024 Humiliation, Afraid, Rape, and Kick questionnair e Answer Date Recorded Within the last year, have y ou been afraid of your partner or ex-partner? No 10/02/2024 Emotionally Abused Not on file 10/02/2024 Physically Abused Not on file 10/02/2024 Sexually Abused Not on file 10/02/2024 Overall Financial Resource Strain (CARDIA) Answe r Date Recorded How hard is it for you to pa y for the very basics like food, housing, medical care, and heating? Not very hard 10/02/2024 Transportation Answer Date Recorded In the past 12 months, has l ack of transportation kept you from medical appointments or from getting medications? No 10/02/2024 Lack of Transportation (Non-Medical) Not on file 10/02/2024 Housing Stability Vital Sign Answer Keshawn e Recorded In the last 12 months, was t here a time when you were not able to pay the mortgage or rent on time? No 10/02/2024 In the past 12 months, how m any times have you moved where you were living? 0 10/02/2024 At any time in the past 12 m [facility], were you homeless or living in a skilled nursing (including now)? No 10/02/2024 Hunger Vital Sign Answer Date Recorded Within the past 12 months, y ou worried that your food would run out before you got the money to buy more. Never true 10/03/19 25 Ran Out of Food in the Last Year Not on file 10/02/2024 Sex and Gender Information Value Date Recorded Sex Assigned at Not on file Legal Sex Male 10:50 PM EDT Gender Identity Not on file Sexual Orientation Not on file documented as of this encounter Plan of Treatment Upcoming Encounters Date Type Department Care Team (Late st Contact Info) Description 01/03/2025 11:30 AM EDT [facility] [address] [place] [phone] Celine Murillo, PharmD 01/15/2025 10:40 AM EDT Office Visit [facility] [address] [place] [phone] Li Waldron MD [address] [facility] [id number] [place] [address] documented as of this encounter Visit Diagnoses Not on filedocumented in this encounter Care Teams Senior Service Aide Relationship Specialty Start Date End Date Claude Hernández MD [address] [facility] [address] [address] PCP - General 10/02/24 documented as of this encounter
--- OUTSIDE RECORDS SUMMARY | 2024-12-19 07:22 | XMS_ITS | Clinical Summary ---
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 90 tablet 3 12/03/19 25 026 Active lisinopril 20 mg tabletIndicatio ns:HFrEF (heart failure with reduced ejection fraction) (CMS/HCC) Take 1 tablet (20 mg) by mouth in the morning for 360 doses. 90 tablet 3 12/03/19 25 026 Active aspirin 81 mg chewable tabletIndicatio ns:NSTEMI (non-ST elevated myocardial infarction) (CMS/HCC) Chew 1 tablet (81 mg) in the morning for 360 doses. 90 tablet 3 12/03/19 25 026 Active atorvastatin (Lipitor) 40 mg tabletIndicatio ns:NSTEMI (non-ST elevated myocardial infarction) (CMS/HCC) Take 2 tablets (80 mg) by mouth at bedtime. 90 tablet 3 12/03/19 25 026 Active carvedilol (Coreg) 25 mg tabletIndicatio ns:HFrEF (heart failure with reduced ejection fraction) (CMS/HCC) Take 1 tablet (25 mg) by mouth two times daily for 720 doses. 180 tablet 3 12/03/19 25 026 Active furosemide (Lasix) 40 mg tabletIndicatio ns:HFrEF (heart failure with reduced ejection fraction) (CMS/HCC) Take 1 tablet (40 mg) by mouth two times daily. 180 tablet 2 12/03/19 25 026 Active isosorbide mononitrate ER (Imdur) 30 mg 24 hr tabletIndicatio ns:HFrEF (heart failure with reduced ejection fraction) (CMS/HCC) Take 1 tablet (30 mg) by mouth in the morning for 360 doses. Do not crush or chew. 90 tablet 3 12/03/19 25 026 Active spironolactone (Aldactone) 25 mg tabletIndicatio ns:HFrEF (heart failure with reduced ejection fraction) (CMS/HCC) Take 1 tablet (25 mg) by mouth in the morning for 360 doses. 90 tablet 3 12/03/19 25 026 Active clopidogrel (Plavix) 75 mg tabletIndicatio ns:NSTEMI (non-ST elevated myocardial infarction) (CMS/HCC),Coron vika artery disease involving hoopa coronary artery of hoopa heart with unstable angina pectoris (CMS/HCC) Take 1 tablet (75 mg) by mouth in the morning. 90 tablet 3 12/03/19 25 026 Active spironolactone (Aldactone) 25 mg tabletIndicatio ns:HFrEF (heart failure with reduced ejection fraction) (CMS/HCC) Take 1 tablet (25 mg) by mouth in the morning for 96 doses. 96 tablet 10/06/19 25 025 Discontinued(Re order) lisinopril 20 mg tabletIndicatio ns:HFrEF (heart failure with reduced ejection fraction) (CMS/HCC) Take 1 tablet (20 mg) by mouth in the morning for 96 doses. 96 tablet 10/06/19 25 025 Discontinued(Re order) isosorbide mononitrate ER (Imdur) 30 mg 24 hr tabletIndicatio ns:HFrEF (heart failure with reduced ejection fraction) (CMS/HCC) Take 1 tablet (30 mg) by mouth in the morning for 96 doses. Do not crush or chew. 96 tablet 10/06/19 25 025 Discontinued(Re order) dapagliflozin propanediol (Farxiga) 10 mgIndications:H FrEF (heart failure with reduced ejection fraction) (CMS/HCC) Take 1 tablet (10 mg) by mouth in the morning for 96 doses. 96 tablet 10/06/19 25 025 Discontinued(Re order) carvedilol (Coreg) 25 mg tabletIndicatio ns:HFrEF (heart failure with reduced ejection fraction) (CMS/HCC) Take 1 tablet (25 mg) by mouth two times daily for 192 doses. 192 tablet 10/05/19 25 025 Discontinued(Re order) atorvastatin (Lipitor) 40 mg tabletIndicatio ns:NSTEMI (non-ST elevated myocardial infarction) (CMS/HCC) Take 1 tablet (40 mg) by mouth at bedtime for 96 doses. 96 tablet 10/05/19 25 025 Discontinued aspirin 81 mg chewable tabletIndicatio ns:NSTEMI (non-ST elevated myocardial infarction) (CMS/HCC) Chew 1 tablet (81 mg) in the morning for 96 doses. 96 tablet 10/06/19 025 Discontinued(Re order) furosemide (Lasix) 40 mg tabletIndicatio ns:HFrEF (heart failure with reduced ejection fraction) (CMS/HCC) Take 1 tablet (40 mg) by mouth two times daily. 60 tablet 2 10/05/19 25 025 Discontinued(Re order) clopidogrel (Plavix) 75 mg tabletIndicatio ns:Coronary artery disease involving hoopa coronary artery of hoopa heart with unstable angina pectoris (CMS/HCC),NSTEM I (non-ST elevated myocardial infarction) (CMS/HCC) Take 1 tablet (75 mg) by mouth in the morning. 90 tablet 3 11/21/19 25 025 Discontinued(Re order) atorvastatin (Lipitor) 40 mg tabletIndicatio ns:NSTEMI (non-ST elevated myocardial infarction) (CMS/HCC) Take 2 tablets (80 mg) by mouth at bedtime. 90 tablet 3 11/21/19 25 025 Discontinued(Re order) Active Problems Problem Noted Date Diagnosed Date S/P coronary artery stent placement 11/20/2024 Coronary artery disease invo lving hoopa coronary artery of hoopa heart with unstable angina pectoris 10/28/2024 Hyperlipidemia 10/13/2024 Multi-vessel coronary artery stenosis 10/04/2024 Tobacco use disorder 10/03/2024 Assessment & Plan (10/03/2024 1:48 PM EDT): Patient has a smoking history of more than 20 pack years a day. NSTEMI (non-ST elevated myocardial infarction) 0 10/02/2024 Assessment & Plan (10/03/2024 1:48 PM EDT): S/p cardiac cath 10/02 Assessment & Plan (10/02/2024 2:57 AM EDT): Cycle troponin nitrates Coreg statin aspirin with [...] NSTEMI anticipate left heart cath Primary hypertension 10/02/2024 Assessment & Plan (10/03/2024 1:48 PM EDT): Continue lisinopril. Assessment & Plan (10/02/2024 2:57 AM EDT): As above also would recommend outpatient sleep study HFrEF (heart failure with reduced ejection fract ion) 10/02/2024 Assessment & Plan (10/03/2024 1:48 PM EDT): NYHA class II Continue continue IV Lasix Continue lisinopril, Coreg, Aldactone, Farxiga Assessment & Plan (10/02/2024 2:57 AM EDT): Optimize guideline directed medical therapy including Coreg lisinopril Aldactone and Farxiga consider changing DAVEY inhibitor to ARNI monitor I's and O's salt restricted diet core CHF measures in place Obesity 10/02/2024 Assessment & Plan (10/03/2024 1:48 PM EDT): Class II obesity Assessment & Plan (10/02/2024 2:57 AM EDT): We will check triglycerides/lipid profile if triglycerides below 300 consider GLP-1 inhibitor discussed with patient about diet management dietary consult already in order for CHF and for obesity Resolved Problems Problem Noted Date Diagnosed Date Resolved Date Coronary artery disease of n ative artery of hoopa heart with stable angina pectoris 10/03/2024 10/28/2024 Assessment & Plan (10/03/2024 1:48 PM EDT): Cardiac catheterization 10/02 showed multivessel disease, LVEDP 30 CT surgery consulted for CABG evaluation Encounters Date Type Department Care Team Description 12/02/2024 2:00 PM EDT Telemedicine [facility] HVC ANTICOAGULATION [address] [place] [phone] Stella Spence PharmD Hyperlipidemia, unspecified hyperlipidemia type (Primary Dx); HFrEF (heart failure with reduced ejection fraction) (CMS/HCC); NSTEMI (non-ST elevated myocardial infarction) (CMS/HCC); Coronary artery disease involving hoopa coronary artery of hoopa heart with unstable angina pectoris (CMS/HCC) 12/02/2024 Telephone [facility] Heart at [address] [address] Francheska Gerard MA 12/01/2024 Results Follow-Up [facility] Cardiology [address] [place] [phone] Essence Waldron MD Cardiac catheterization 11/20/2024 10:30 AM EDT - 11/20/2024 11:30 AM EDT Surgery [facility] Heart [facility] V[facility] Lab [address] [facility] [place] [address] Mikael Garcia MD Coronary angiography 11/20/2024 9:07 AM EDT - 11/20/2024 5:00 PM EDT Hospital Encounter [facility] Vascular Lab [address] [place] [address] Mikael Garcia MD Coronary artery disease involving hoopa coronary artery of hoopa heart with unstable angina pectoris ([facility]/HCC) (Primary Dx); Primary hypertension; Multi-vessel coronary artery stenosis; HFrEF (heart failure with reduced ejection fraction) ([facility]/HCC); Tobacco use disorder; Mixed hyperlipidemia; Class 2 severe obesity due to excess calories with serious comorbidity and body mass index (BMI) of 39.0 to 39.9 in adult ([facility]/HCC); NSTEMI (non-ST elevated myocardial infarction) ([facility]); S/P coronary artery stent placement Discharge Disposition: Home or Self Care () 11/20/2024 Orders Only [facility] Heart at [place] [address] [place] [phone] Nadya Horton MA Acute on chronic systolic heart failure (CMS/HCC) 11/20/2024 Travel 11/13/2024 Travel 11/13/2024 Orders Only [facility] Heart and Vascular Center Vascular Lab [address] [place] [phone] Shari Roman, KALPANA Multi-vessel coronary artery stenosis (Primary Dx) 11/01/2024 Abstract [facility] AUTHORIZATION DEPARTMENT [address] [place] [phone] Mikael Garcia MD 10/24/2024 Telephone Cardiothoracic Surgery [address] [place] [phone] Nida Landa, BRANNER MACHINE TENDER 10/22/2024 Abstract [facility] Heart and Vascular Cardiothoracic Surgery Center [address] [place] [phone] Lynn Bagley RN 10/17/2024 10:40 AM EDT Lab [facility] Outpatient Draw Station [address] [place] [address] Multi-vessel coronary artery stenosis; HFrEF (heart failure with reduced ejection fraction) ([facility]/HCC); Coronary artery disease of hoopa artery of hoopa heart with stable angina pectoris; NSTEMI (non-ST elevated myocardial infarction) ([facility]); Primary hypertension; Pre-op testing 10/16/2024 Orders Only [facility] Heart [facility] Vascular Cardiothoracic Surgery [place] [address] [place] [phone] yLnn Bagley, KAL[place] Multi-vessel coronary artery stenosis; HFrEF (heart failure with reduced ejection fraction) (CMS/HCC); Coronary artery disease of hoopa artery of hoopa heart with stable angina pectoris; NSTEMI (non-ST elevated myocardial infarction) ([facility]/HCC); Primary hypertension; Pre-op testing 10/15/2024 Abstract [facility] AUTHORIZATION DEPARTMENT [address] [place] [phone] Young Farmer MD 10/15/2024 Abstract [facility] Vascular Cardiothoracic Surgery [place] [address] [place] [phone] Lynn Bagley RN 10/11/2024 2:40 PM EDT Follow-Up [place] [address] [place] [address] Essence Waldron MD Coronary artery disease of hoopa artery of hoopa heart with stable angina pectoris (Primary Dx); HFrEF (heart failure with reduced ejection fraction) ([facility]); Multi-vessel coronary artery stenosis; Primary hypertension; Class 2 severe obesity due to excess calories with serious comorbidity and body mass index (BMI) of 39.0 to 39.9 in adult ([facility]/HCC); Tobacco use disorder; Hyperlipidemia, unspecified hyperlipidemia type 10/07/2024 Telephone [facility] Vascular Cardiothoracic Surgery [place] [address] [place] [phone] Lynn Bagley, KAL[place]NA Hospital Follow Up w/ Pre-op Instructions 10/07/2024 Telephone [facility] Vascular [place] Vascular Lab [address] [place] [phone] Stephanie Lu, [place] HF post discharge call. 10/05/2024 Telephone [facility] HVCU [address] [place] [address] Gisela Houser, [place]NA Hospital Follow-up 10/04/2024 6:29 PM EDT - 10/04/2024 11:59 PM EDT Hospital Encounter [facility] Heart [facility] Vascular [place] Heart Station [address] [place] [address] Multi-vessel coronary artery stenosis; Abnormal findings diagnostic imaging of heart and coronary circulation Discharge Disposition: Home or Self Care (01) 10/04/2024 Orders Only [facility] Heart and Vascular Cardiothoracic Surgery Center [address] [place] [address] Lynn Bagley RN Multi-vessel coronary artery stenosis; Abnormal findings diagnostic imaging of heart and coronary circulation 10/02/2024 3:30 PM EDT - 10/02/2024 5:30 PM EDT Surgery [facility] Vascular Lab [address] [place] [address] Mikael Garcia MD Coronary angiography [[id number] (CPT )] 10/02/2024 1:50 AM EDT - 10/04/2024 5:06 PM EDT Hospital Encounter [facility] HVCU [address] [place] [address] Bryce Phillips MD Iqbal, Amna, MD Horani, Omar, MD NSTEMI (non-ST elevated myocardial infarction) (CMS/HCC) (Primary Dx); HFrEF (heart failure with reduced ejection fraction) (CMS/HCC); Hypersomnia Discharge Disposition: Home or Self Care w/Planned Readmission (81) 10/02/2024 Travel from Last 3 Months Family History Medical History Relation Name Comments Coronary artery disease Brother Coronary artery disease Mother Relation Name Status Comments Brother Father Alive Mother Social History Tobacco Use Types Packs/Day Years Used Date Smoking Tobacco: Former Cigarettes Smokeless Tobacco: Current Chew Tobacco Cessation:Ready to Q uit: Not Asked; Counseling Given: Yes [facility] Utilities Answer Date Recorded In the past 12 months has th e [employer], gas, oil, or water [employer] threatened to shut off services in your [...] any time in the past [address] [facility], were you homeless or living in a fpc (including now)? No 10/02/2024 Hunger Vital Sign [...] Sign Reading Time Taken Comments Blood Pressure 118/72 11/20/2024 4:21 PM EDT Pulse 61 11/20/2024 4:21 PM EDT Temperature 36.4 C (97.5 F) 10/04/2024 3:13 PM EDT Respiratory Rate 18 11/20/2024 4:21 PM EDT Oxygen Saturation 96% 11/20/2024 4:21 PM EDT Inhaled Oxygen Concentration - - Weight 136 kg (299 lb) 10/11/2024 3:35 PM EDT Height 188 cm (6' 2 ) 10/11/2024 3:35 PM EDT Body Mass Index 38.39 10/11/2024 3:35 PM EDT Plan of Treatment Upcoming Encounters Date Type Department Care Team (Late st Contact Info) Description 01/03/2025 11:30 AM EDT Telemedicine [facility] HVC ANTICOAGULATION [address] [place] [phone] Celine Murillo, MynorD 01/15/2025 10:40 AM EDT Office Visit [facility] Heart at [facility] [address] [place] [address] Essence Waldron MD [address] [facility] [id number] [place] [address] Health Maintenance Due Date Last Done Comments CT Colonography 1977 Colonoscopy 1977 Colorectal Cancer Screening 1977 FIT-DNA 1977 FIT 1977 FOBT 1977 Sigmoidoscopy 1977 Depression Screening 1989 Hepatitis B Vaccines (1 of 3 - 19+ 3-dose series) 1996 Pneumococcal Vaccine: Pediat rics (0 to 5 Years) and At-Risk Patients (6 to 64 Years) (1 of 2 - PCV) 1996 COVID-19 Vaccine (2023-2 5 season) 2024 Adult Tetanus 10/07/2024 10/07/2014 Influenza Vaccine (#1) 2025 Zoster Vaccines (1 of 2) 09/18/2027 HIB Vaccines Aged Out No longer eligi ble based on patient's age to complete this topic HPV Vaccines Aged Out No longer eligi ble based on patient's age to complete this topic IPV Vaccines Aged Out No longer eligi ble based on patient's age to complete this topic Meningococcal B Vaccine Aged Out No l onger eligible based on patient's age to complete this topic Meningococcal Vaccine Aged Out No shirley quyen eligible based on patient's age to complete this topic Rotavirus Vaccines Aged Out No longer eligible based on patient's age to complete this topic Medical Devices Implanted Type Area Packing Supervisor Device Identifier Shelf Expiration Date Model / Serial / Lot Stent,Synergy Mr 4.00 X 32 - [id number] Implanted:Qty : 1 on 11/20/2024 by Mikael Garcia MD at [facility] Drug Eluting Stent Left: Coronary [employer] [id number] 11/08/2025 [id number] / / [id number] Procedures Procedure Name Priority Date/Time Associated Diagnosis Comments ECG 12-LEAD Today 11/20/2024 1:38 PM EDT ULTRASOUND - CORONARY Routine 11/20/2024 1:15 PM EDT Primary hypertension Multi-vessel coronary artery stenosis HFrEF (heart failure with reduced ejection fraction) ([facility]/HCC) Tobacco use disorder Mixed hyperlipidemia Class 2 severe obesity due to excess calories with serious comorbidity and body mass index (BMI) of 39.0 to 39.9 in adult ([facility]/HCC) Coronary artery disease involving hoopa coronary artery of hoopa heart with unstable angina pectoris (CMS/HCC) PERC CORONARY INTERVENTION Routine 11/20/2024 1:15 PM EDT Primary hypertension Multi-vessel coronary artery stenosis HFrEF (heart failure with reduced ejection fraction) (CMS/HCC) Tobacco use disorder Mixed hyperlipidemia Class 2 severe obesity due to excess calories with serious comorbidity and body mass index (BMI) of 39.0 to 39.9 in adult ([facility]/HCC) Coronary artery disease involving hoopa coronary artery of hoopa heart with unstable angina pectoris (CMS/HCC) CORONARY ANGIOGRAPHY Routine 11/20/2024 1:15 PM EDT Primary hypertension Multi-vessel coronary artery stenosis HFrEF (heart failure with reduced ejection fraction) ([facility]/HCC) Tobacco use disorder Mixed hyperlipidemia Class 2 severe obesity due to excess calories with serious comorbidity and body mass index (BMI) of 39.0 to 39.9 in adult ([facility]/HCC) Coronary artery disease involving hoopa coronary artery of hoopa heart with unstable angina pectoris (CMS/HCC) POCT ACT Routine 11/20/2024 1:01 PM EDT POCT ACT Routine 11/20/2024 12:23 PM EDT ECG 12-LEAD Routine 11/20/2024 10:55 AM EDT URINALYSIS Routine 10/17/2024 11:02 AM EDT Multi-vessel coronary artery stenosis HFrEF (heart failure with reduced ejection fraction) (CMS/HCC) Coronary artery disease of hoopa artery of hoopa heart with stable angina pectoris NSTEMI (non-ST elevated myocardial infarction) (CMS/HCC) Primary hypertension Pre-op testing CBC WITH AUTO DIFFERENTIAL Routine 10/17/2024 10:51 AM EDT Multi-vessel coronary artery stenosis HFrEF (heart failure with reduced ejection fraction) (CMS/HCC) Coronary artery disease of hoopa artery of hoopa heart with stable angina pectoris NSTEMI (non-ST elevated myocardial infarction) (CMS/HCC) Primary hypertension Pre-op testing PROTIME-INR Routine 10/17/2024 10:51 AM EDT Multi-vessel coronary artery stenosis HFrEF (heart failure with reduced ejection fraction) (CMS/HCC) Coronary artery disease of hoopa artery of hoopa heart with stable angina pectoris NSTEMI (non-ST elevated myocardial infarction) (CMS/HCC) Primary hypertension Pre-op testing APTT Routine 10/17/2024 10:51 AM EDT Multi-vessel coronary artery stenosis HFrEF (heart failure with reduced ejection fraction) (CMS/HCC) Coronary artery disease of hoopa artery of hoopa heart with stable angina pectoris NSTEMI (non-ST elevated myocardial infarction) (CMS/HCC) Primary hypertension Pre-op testing COMPREHENSIVE METABOLIC PANEL Routine 10/17/2024 10:51 AM EDT Multi-vessel coronary artery stenosis HFrEF (heart failure with reduced ejection fraction) (CMS/HCC) Coronary artery disease of hoopa artery of hoopa heart with stable angina pectoris NSTEMI (non-ST elevated myocardial infarction) (CMS/HCC) Primary hypertension Pre-op testing TYPE AND SCREEN Routine 10/17/2024 10:51 AM EDT Multi-vessel coronary artery stenosis HFrEF (heart failure with reduced ejection fraction) (CMS/HCC) Coronary artery disease of hoopa artery of hoopa heart with stable angina pectoris NSTEMI (non-ST elevated myocardial infarction) (CMS/HCC) Primary hypertension Pre-op testing CBC AND DIFFERENTIAL Routine 10/17/2024 10:51 AM EDT Multi-vessel coronary artery stenosis HFrEF (heart failure with reduced ejection fraction) ([facility]) Coronary artery disease of hoopa artery of hoopa heart with stable angina pectoris NSTEMI (non-ST elevated myocardial infarction) ([facility]) Primary hypertension Pre-op testing [facility] US UPPER EXTREMITY ARTERIAL DUPLEX BILATERAL Routine 10/04/2024 12:40 PM EDT ROUTINE STRESS (TREADMILL ONLY) Routine 10/04/2024 11:49 AM EDT LAVENDER TOP Routine 10/04/2024 4:18 AM EDT LIGHT GREEN TOP Routine 10/04/2024 4:18 AM EDT EXTRA TUBES Routine 10/04/2024 4:18 AM EDT ANTI-FACTOR XA Routine 10/04/2024 4:18 AM EDT URINALYSIS Routine 10/03/2024 8:32 PM EDT RED TOP Routine 10/03/2024 5:52 PM EDT EXTRA TUBES Routine 10/03/2024 5:52 PM EDT ANTI-FACTOR XA Timed 10/03/2024 5:52 PM EDT PULMONARY FUNCTION TESTING Routine 10/03/2024 12:48 PM EDT ANTI-FACTOR XA Routine 10/03/2024 12:16 PM EDT COMPLETE ECHO (TTE) W/ IMAGING AGENT Routine 10/03/2024 11:46 AM EDT [facility] US CAROTID ARTERY DUPLEX BILATERAL Routine 10/03/2024 11:20 AM EDT VASC US LOWER EXTREMITY VEIN MAPPING BILATERAL Routine 10/03/2024 11:20 AM EDT XR CHEST 1 VIEW Routine 10/03/2024 9:34 AM EDT MAGNESIUM STAT Add-on 10/03/2024 9:22 AM EDT BASIC METABOLIC PANEL STAT Add-on 10/03/2024 9:22 AM EDT ANTI-FACTOR XA Timed 10/03/2024 9:22 AM EDT LIGHT GREEN TOP Routine 10/03/2024 4:18 AM EDT EXTRA TUBES Routine 10/03/2024 4:18 AM EDT CBC Routine 10/03/2024 4:18 AM EDT ANTI-FACTOR XA Routine 10/03/2024 4:18 AM EDT PLATELET COUNT STAT 10/02/2024 7:53 PM EDT APTT STAT 10/02/2024 7:53 PM EDT HIGH SENSITIVITY TROPONIN I Timed 10/02/2024 4:23 PM EDT LEFT HEART CATH Routine 10/02/2024 3:18 PM EDT NSTEMI (non-ST elevated myocardial infarction) (CMS/HCC) HFrEF (heart failure with reduced ejection fraction) (CMS/HCC) CORONARY ANGIOGRAPHY Routine 10/02/2024 3:18 PM EDT NSTEMI (non-ST elevated myocardial infarction) (CMS/HCC) HFrEF (heart failure with reduced ejection fraction) (CMS/HCC) PLATELET COUNT STAT Add-on 10/02/2024 12:45 PM EDT APTT STAT 10/02/2024 12:45 PM EDT HIGH SENSITIVITY TROPONIN I Timed 10/02/2024 11:07 AM EDT HIGH SENSITIVITY TROPONIN I Timed 10/02/2024 9:14 AM EDT HEMOGLOBIN A1C Routine 10/02/2024 3:58 AM EDT TSH3 REFLEX TO FT4 Routine 10/02/2024 3: 58 AM EDT LIPID PANEL Routine 10/02/2024 3:58 AM EDT CBC WITH AUTO DIFFERENTIAL Routine 10/02/2024 3:58 AM EDT HIGH SENSITIVITY TROPONIN I Timed 10/02/2024 3:58 AM EDT B-TYPE NATRIURETIC PEPTIDE Routine 10/02/2024 3:58 AM EDT COMPREHENSIVE METABOLIC PANEL Routine 10/02/2024 3:58 AM EDT CBC AND DIFFERENTIAL Routine 10/02/2024 3:58 AM EDT ECG 12-LEAD Routine 10/02/2024 3:45 AM EDT from Last 3 Months Results * ECG 12 lead (11/20/2024 1:38 PM EDT) Only the most recent of3 resultswithin the time period is included. Ventricular Rate 67 BPM GE MUSE Atrial Rate 67 BPM GE MUSE VA Interval 218 ms GE MUSE QRS DURATION 96 ms GE MUSE QT Interval 434 ms GE MUSE QTC CALCULATION(BAZE TT) 458 ms GE MUSE P [place] 29 degrees GE MUSE R-[place] 10 degrees GE MUSE T Wave [place] 54 degrees GE MUSE 11/20/2024 1:36 PM EDT 11/20/2024 3:28 PM EDT Impressions GE MUSE - 11/20/2024 3:28 PM EDT Sinus rhythm with 1st degree A-V block Possible Inferior infarct (cited on or before 20-NOV-2024) Abnormal ECG When compared with ECG of 20-NOV-2024 10:19, Premature ventricular complexes are no longer Present Confirmed by Rayne BENITEZ SAMER J. ([id number]) on 11/20/2024 3:28:06 PM Narrative Procedure Note Alex Benitez MD - 11/20/2024 IMPRESSION: Sinus rhythm with 1st degree A-V block Possible Inferior infarct (cited on or before 20-NOV-2024) Abnormal ECG When compared with ECG of 20-NOV-2024 10:19, Premature ventricular complexes are no longer Present Confirmed by Rayne BENITEZ SAMER J. (57) on 11/20/2024 3:28:06 PM us Mikael Garcia MD ECG ORDERABLES Final Result [place]! * CORONARY ANGIOGRAPHY, PERC CORONARY INTERVENTION, ULTRASOUND - CORONARY (11/20/2024 1:15 PM EDT) Anatomical Region Laterality Modality Other Narrative 11/20/2024 2:04 PM EDT PROCEDURE PHYSICIAN: Mikael Garcia MD Clinical Presentation: 49 y.o. Male with history of Severe CAD, hypertension, hyperlipidemia, smoking, HFrEF. Patient was really found to have acute HFrEF and then had coronary angiogram which showed severe LAD disease. He was evaluated for CABG but turndown due to poor distal LAD target and intermediate stenosis in the circumflex and RCA. I evaluated his and angiogram recommended PCI LAD and further evaluation of the RCA stenosis. He now presents for this procedure. Final Impression: 1) 70% proximal LAD stenosis status post successful PCI proximal and mid LAD with a Synergy 4.0 x 32 mm MATEO; post-dilated with a 5.0 mm NC balloon. IVUS used for PCI optimization. 2) LCX is patent with mild to moderate CAD 3) RCA is patient with moderate CAD. IVUS evaluation of the RCA showed adequate minimal luminal area and medical therapy is recommended. Plan: 1) optimal med therapy for CAD s/p PCI systolic CHF 2) Aspirin and plavix long-term DAPT 3) high intensity statin therapy; increase atorvastatin to 80 mg daily; add ezetimibe or PCSK9i in the outpatient setting to reach aggressive LDL goal if possible 4) Medical therapy for HFrEF as tolerated 5) Recheck echo in outpatient setting to reevaluate LV ejection fraction 6) Outpatient on-call follow-up with [facility] 7) Referral to cardiac rehabilitation 8) start GLP-1 agonist (semaglutide) for morbid obesity and CAD per SELECT trial Procedures Performed: PCI LAD, IVUS LAD, IVUS RCA, conscious sedation 60 min Procedure Description: The patient was brought to the cardiac catheterization lab in a fasting state. Informed written consent was obtained. he was prepped and draped in usual sterile fashion over the right wrist and bilateral groins. Time-out was performed. he was given Versed and fentanyl for sedation. 1% lidocaine was infiltrated over the right radial artery. A 6-[place] Terumo Glidesheath slender was placed in right radial artery. Radial anti-vasospasm cocktail of verapamil 2.5 mg and nitroglycerin 200 mcg was administered through the sheath. All catheter exchanges were made over the Ortiz guidewire. This was a planned PCI LAD procedure. Heparin anticoagulation was used for this procedure. ACT was maintained at >250 seconds. A 6 [place] Medtronic EBU 3.5 Guide was engaged to the left main. I then advanced a Runthrough wire to the distal left anterior descending. Next, I advanced a UtiliData IVUS catheter. IVUS imaging was performed and automated pullback was performed. Based on IVUS, we identified chose the stent diameter and length. Ostial LAD MLA 4.2 mm , mid LAD plaque burden 70%, adventitial reference size approximate 5.5 mm. Based on IVUS, I decided to treat the proximal and mid LAD. Next, I proceeded with pre-dilatation with a NC Emerge 3.5. 20 mm balloon at 18 jimi. Next, I delivered a Synergy 4.0 x 32 mm MATEO deployed at 14 jimi. Next, the stent was post-dilated with a NC Emerge 5.0 x 15 mm balloon at 12 jimi. At this point, the final result was very good. There was 0% residual stenosis and normal REEMA III flow throughout the LAD and its branches. Final IVUS run was performed which showed excellent stent expansion and apposition. Next I turned my attention to the RCA. The guide and wire were removed from the LAD and I exchanged to a 6 [place] Cordis JR4 guide and then maneuvered the run-through to the distal RCA and then perform IVUS of the RCA. IVUS of the RCA revealed adequate minimal luminal areas with mid RCA MLA 13.0 mm and ostial RCA MLA 13.7 mm which were both very good. Therefore medical therapy is recommended. The mid segment had plaque burden in an aneurysmal segment but this can be best managed with medical therapy. All catheters and wires were removed. The right radial sheath was removed and a TR band was applied to obtain hemostasis. Specimens Removed: None Complications: None Coronary Angiogram: Left main: The left main is large vessel and is patent. The left main bifurcates in the LAD and left circumflex coronary arteries. LAD: The LAD is a large vessel. The proximal segment has a focal 70% stenosis and is adjacent to an ectatic segment of LAD. The mid segment has angiographic 30% stenosis but by IVUS there was significant plaque burden in this region and this was also covered with the stent. The distal segment has diffuse 90% stenosis and is occluded at the apex. This segment is very small caliber and I decided medical therapy is best for this distal to apical diffuse disease. The diagonal branches are patent. LCX: The circumflex is a large vessel gives rise to 1 major obtuse marginal branch the proximal circumflex is focal 30 to 40% stenosis. Remainder of the circumflex and obtuse motor branch is patent. RCA: The RCA is a large vessel is dominant the proximal and ostial segment has diffuse 30 to 40% stenosis the mid segment has a 50% stenosis. Both segments were assessed with IVUS and have large minimal luminal areas that are appropriate for medical therapy. The right PDA is patent. Study Details Severe CAD, HFrEF us Mikael Garcia MD CV CARDIAC CATH PROCEDURES Final Result * (ABNORMAL) POC Activated Clotting Time (11/20/2024 1:01 PM EDT) Only the most recent of2 resultswithin the time period is included. 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 Color, Urine Yellow Yellow, Light Yellow, Colorless 10/17/2024 12:06 PM EDT [facility] Clarity, Urine Clear Clear 10/17/2024 12:06 PM T [facility] ([facility]) pH, Urine 6.0 5.0 - 8.0 pH 10/17/2024 12:06 PM EDT [facility] Leukocytes, Urine Negative Negative 10/17/2024 12:06 PM T [facility] Nitrite, Urine Negative Negative 10/17/2024 12:06 PM EDT [facility] ([facility]) Protein, Urine Negative Negative mg/dL 10/17/2024 12:06 PM EDT [facility] ([facility]) Glucose, Urine >=1000(A) Normal mg/dL 10/17/2024 12:06 PM T [facility] ([facility]) Bilirubin, Urine Negative Negative 10/17/2024 12:06 PM T [facility] ([facility]) Specific [place], Urine 1.015 1.010 - 1.030 10/17/2024 12:06 PM T [facility] ([facility]) Ketones, Urine Negative Negative mg/dL 10/17/2024 12:06 PM T [facility] ([facility]) Blood, Urine Negative Negative 10/17/2024 12:06 PM T [facility] ([facility]) Urobilinogen, Urine Normal Normal mg/dL 10/17/2024 12:06 PM T [facility] ([facility]) Urine Urine specimen obtained by clean catch procedure / Unknown 10/17/2024 11:02 AM EDT 10/17/2024 11:02 AM EDT Narrative [facility] ([facility]) - 10/17/2024 12:06 PM EDT Microscopics not performed on urines with negative chemical reactions unless requested on original order. us Young Farmer MD LAB URINE ORDERABLES Final Res ult [facility] ([facility]) [address] [place] [address] * (ABNORMAL) CBC auto differential (10/17/2024 10:51 AM EDT) Only the most recent of2 resultswithin the time period is included. Auto WBC 11.66(H) 4.00 - 10.60 10*3/uL 10/17/2024 11:19 AM EDT [facility] ([facility]) RBC 5.59 4.20 - 5.70 10*6/uL 10/17/2024 11:19 AM EDT [facility] ([facility]) Hemoglobin 15.7 13.0 - 17.0 g/dL 10/17/2024 11:19 AM EDT [facility] ([facility]) Hematocrit 48.7 39.0 - 50.0 % 10/17/2024 11:19 AM EDT [facility] ([facility]) MCV 87.1 82.0 - 98.0 fL 10/17/2024 11:19 AM EDT [facility] ([facility]) MCH 28.1 27.0 - 33.0 pg 10/17/2024 11:19 AM EDT [facility] ([facility]) MCHC 32.2 32.0 - 35.0 g/dL 10/17/2024 11:19 AM EDT [facility] ([facility]) RDW 13.2 11.5 - 15.0 % 10/17/2024 11:19 AM EDT [facility] ([facility]) Neutrophils % 67.8 40.0 - 72.0 % 10/17/2024 11:19 AM EDT [facility] ([facility]) Lymphocytes % 18.4(L) 20.0 - 45.0 % 10/17/2024 11:19 AM EDT [facility] ([facility]) Monocytes % 9.5 5.0 - 12.0 % 10/17/2024 11:19 AM EDT [facility] ([facility]) Eosinophils % 3.0 0.0 - 6.0 % 10/17/2024 11:19 AM EDT [facility] ([facility]) Basophils % 1.0 0.0 - 1.0 % 10/17/2024 11:19 AM EDT [facility] ([facility]) Neutrophils Absolute 7.90(H) 1.60 - 7.60 10*3/uL 10/17/2024 11:19 AM EDT [facility] ([facility]) Lymphocytes Absolute 2.14 1.20 - 4.00 10*3/uL 10/17/2024 11:19 AM EDT [facility] ([facility]) Monocytes Absolute 1.11(H) 0.10 - 1.00 10*3/uL 10/17/2024 11:19 AM EDT [facility] ([facility]) Eosinophils Absolute 0.35 0.00 - 0.50 10*3/uL 10/17/2024 11:19 AM EDT [facility] ([facility]) Basophils Absolute 0.12 0.00 - 0.20 10*3/uL 10/17/2024 11:19 AM T [facility] ([facility]) Platelets 236 150 - 400 10*3/uL 10/17/2024 11:19 AM EDT [facility] ([facility]) nRBC % 0.0 0 % 10/17/2024 11:19 AM [facility] ([facility]) Immature Granulocytes % 0.3 0.0 - 1.0 % 10/17/2024 11:19 AM T [facility] ([facility]) Immature Granulocytes Absolute 0.04 0.00 - 0.20 10*3/uL 10/17/2024 11:19 AM T [facility] ([facility]) Blood Venous blood specimen / Unknown Venipuncture / Unknown 10/17/2024 10:51 AM EDT 10/17/2024 11:13 AM EDT us Young Farmer MD LAB BLOOD ORDERABLES Final Res ult [facility] ([facility]) [address] [place], [place] [id number] * APTT (10/17/2024 10:51 AM EDT) Only the most recent of3 resultswithin the time period is included. aPTT 31.0 25.0 - 35.0 Seconds 10/17/2024 11:45 AM EDT [facility] ([facility]) Comment:Clinical significanc e of the APTT is questionable in the presence of heparin. Blood Venous blood specimen / Unknown Venipuncture / Unknown 10/17/2024 10:51 AM EDT 10/17/2024 11:04 AM EDT Young Farmer MD LAB BLOOD ORDERABLES Final Res ult Performing Organization Address [facility] Co de Phone Number [facility]) [address] [place] [address] * (ABNORMAL) Protime-INR (10/17/2024 10:51 AM EDT) Protime 14.3 12.3 - 14.8 Seconds 10/17/2024 11:44 AM EDT [facility] ([facility]) INR 1.11(H) 0.90 - 1.10 10/17/2024 11:44 AM EDT [facility] ([facility]) Comment: [facility] RECOMMENDED INR FOR [facility]ARFARIN THERAPY CONDITION INR PROPHYLAXIS OF VENOUS THROMBOSIS 2-3 (HIGH-RISK SURGERY) TREATMENT OF VENOUS THROMBOSIS 2-3 TREATMENT OF PULMONARY EMBOLISM 2-3 PREVENTION OF SYSTEMIC EMBOLISM: 2-3 ACUTE MYOCARDIAL INFARCTION TISSUE HEART VALVES VALVULAR HEART DISEASE ATRIAL FIBRILLATION RECURRENT SYSTEMIC EMBOLISM MECHANICAL HEART VALVE 2.5-3.5 FROM: ORAL ANTICOAGULANTS. MECHANISM OF ACTION, CLINICAL EFFECTIVENESS, AND OPTIMAL THERAPEUTIC RANGE. CHEST 1995;108:231S-246S. Blood Venous blood specimen / Unknown Venipuncture / Unknown 10/17/2024 10:51 AM EDT 10/17/2024 11:04 AM EDT Young Farmer MD LAB BLOOD ORDERABLES Final Res ult [facility] ([facility]) [address] [place] [address] * Type and screen (10/17/2024 10:51 AM EDT) ABO Grouping AB 10/17/2024 1:57 PM EDT [facility] BLOOD [facility] Rh Type POS 10/17/2024 1:57 PM EDT [facility] Ab Scrn NEG 10/17/2024 1:57 PM EDT [facility] Blood Venous blood specimen / Unknown Venipuncture / Unknown 10/17/2024 10:51 AM EDT 10/17/2024 11:03 AM EDT Young Farmer MD LAB BLOOD BANK TEST ORDERABLES Final Result [facility]OD [facility] * (ABNORMAL) Comprehensive metabolic panel (10/17/2024 10:51 AM EDT) Only the most recent of2 resultswithin the time period is included. Sodium 138 136 - 145 mmol/L 10/17/2024 11:38 AM EDT [facility] ([facility]) Potassium 4.4 3.5 - 5.1 mmol/L 10/17/2024 11:38 AM EDT [facility] ([facility]) Chloride 103 98 - 107 mmol/L 10/17/2024 11:38 AM EDT [facility] ([facility]) CO2 29 21 - 31 mmol/L 10/17/2024 11:38 AM [facility] ([facility]) Anion Gap 10 7 - 20 mmol/L 10/17/2024 11:38 AM [facility] ([facility]) BUN 19 7 - 25 mg/dL 10/17/2024 11:38 AM [facility] ([facility]) Creatinine 1.34(H) 0.70 - 1.30 mg/dL 10/17/2024 11:38 AM [facility] ([facility]) BUN/Creatinine Ratio 14.2 06/2024 11:38 AM [facility] ([facility]) Glucose 159(H) 70 - 100 mg/dL 10/17/2024 11:38 AM [facility] ([facility]) Calcium 9.6 8.6 - 10.3 mg/dL 10/17/2024 11:38 AM [facility] ([facility]) AST 16 13 - 39 U/L 10/17/2024 11:38 AM [facility] ([facility]) ALT (SGPT) 28 7 - 52 U/L 10/17/2024 11:38 AM [facility] ([facility]) Alkaline Phosphatase 93 34 - 104 U/L 10/17/2024 11:38 AM [facility] ([facility]) Total Protein 7.0 6.0 - 8.3 g/dL 10/17/2024 11:38 AM [facility] ([facility]) Albumin 4.1 3.5 - 5.7 g/dL 10/17/2024 11:38 AM [facility] ([facility]) Total Bilirubin 0.4 0.3 - 1.0 mg/dL 10/17/2024 11:38 AM [facility] ([facility]) eGFR 65.8 >60.0 mL/min/1. 73m*2 10/17/2024 11:38 AM [facility] ([facility]) Comment:The [facility] s estimated glomerular filtration rate (eGFR) will no longer include consideration of race in its calculation. The [employer] s eGFR Task Force developed new recommendations for [...] disproportionately affect any one group of individuals. Blood Venous blood specimen / Unknown Venipuncture / Unknown 10/17/2024 10:51 AM EDT 10/17/2024 11:11 AM EDT us Young Farmer MD LAB BLOOD ORDERABLES Final Res ult [facility] ([facility]) [address] [place] [address] * [facility] Us Upper Extremity Arterial Duplex Bilateral (10/04/2024 12:40 PM EDT) Anatomical Region Laterality Modality Upper Extremities Ultrasound 10/04/2024 12:3 8 PM EDT Impressions 10/05/2024 12:25 PM EDT Right: Brachial artery diameter 0.63 cm; multiphasic spectral Doppler flow with no plaque. Radial artery proximal diameter 0.32 cm; multiphasic spectral Doppler flow with no plaque. Radial artery mid diameter 0.31 cm; multiphasic spectral Doppler flow with no plaque. Radial artery distal diameter 0.39 cm; multiphasic spectral Doppler flow with no plaque. Ulnar artery mid diameter 0.53 cm; multiphasic spectral Doppler flow with no plaque. Left: Brachial artery diameter 0.53 cm; multiphasic spectral Doppler flow with no plaque. Radial artery proximal diameter 0.30 cm; multiphasic spectral Doppler flow with no plaque. Radial artery mid diameter 0.32 cm; multiphasic spectral Doppler flow with no plaque. Radial artery distal diameter 0.30 cm; multiphasic spectral Doppler flow with no plaque. Ulnar artery mid diameter 0.35 cm; multiphasic spectral Doppler flow with no plaque. Right: Brachial artery diameter 0.63 cm; multiphasic spectral Doppler flow with no plaque. Radial artery proximal diameter 0.32 cm; multiphasic spectral Doppler flow with no plaque. Radial artery mid diameter 0.31 cm; multiphasic spectral Doppler flow with no plaque. Radial artery distal diameter 0.39 cm; multiphasic spectral Doppler flow with no plaque. Ulnar artery mid diameter 0.53 cm; multiphasic spectral Doppler flow with no plaque. Left: Brachial artery diameter 0.53 cm; multiphasic spectral Doppler flow with no plaque. Radial artery proximal diameter 0.30 cm; multiphasic spectral Doppler flow with no plaque. Radial artery mid diameter 0.32 cm; multiphasic spectral Doppler flow with no plaque. Radial artery distal diameter 0.30 cm; multiphasic spectral Doppler flow with no plaque. Ulnar artery mid diameter 0.35 cm; multiphasic spectral Doppler flow with no plaque. Conclusions: Normal study. No evidence of arterial occlusive disease upper extremities Narrative 10/05/2024 12:25 PM EDT Procedure: Brachial, radial and ulnar arteries evaluated with color, boston scale and spectral Doppler. Diameter measurements obtained of brachial and proximal, mid and radial and ulnar arteries. Procedure: Brachial, radial and ulnar arteries evaluated with color, boston scale and spectral Doppler. Diameter measurements obtained of brachial and proximal, mid and radial and ulnar arteries. Procedure Note Alan Jenkins MD - 10/05/2024 Procedure: Brachial, radial and ulnar arteries evaluated with color, grayscale and spectral Doppler. Diameter measurements obtained of brachial andproximal, mid and radial and ulnar arteries. Procedure: Brachial, radial and ulnar arteries evaluated with color, grayscale and spectral Doppler. Diameter measurements obtained of brachial andproximal, mid and radial and ulnar arteries. IMPRESSION: Right: Brachial artery diameter 0.63 cm; multiphasic spectral Doppler flowwith no plaque. Radial artery proximal diameter 0.32 cm; multiphasicspectral Doppler flow with no plaque. Radial artery mid diameter 0.31 cm;multiphasic spectral Doppler flow with no plaque. Radial artery distaldiameter 0.39 cm; multiphasic spectral Doppler flow with no plaque. Ulnarartery mid diameter 0.53 cm; multiphasic spectral Doppler flow with noplaque. Left: Brachial artery diameter 0.53 cm; multiphasic spectral Doppler flowwith no plaque. Radial artery proximal diameter 0.30 cm; multiphasicspectral Doppler flow with no plaque. Radial artery mid diameter 0.32 cm;multiphasic spectral Doppler flow with no plaque. Radial artery distaldiameter 0.30 cm; multiphasic spectral Doppler flow with no plaque. Ulnarartery mid diameter 0.35 cm; multiphasic spectral Doppler flow with noplaque. Right: Brachial artery diameter 0.63 cm; multiphasic spectral Doppler flowwith no plaque. Radial artery proximal diameter 0.32 cm; multiphasicspectral Doppler flow with no plaque. Radial artery mid diameter 0.31 cm;multiphasic spectral Doppler flow with no plaque. Radial artery distaldiameter 0.39 cm; multiphasic spectral Doppler flow with no plaque. Ulnarartery mid diameter 0.53 cm; multiphasic spectral Doppler flow with noplaque. Left: Brachial artery diameter 0.53 cm; multiphasic spectral Doppler flowwith no plaque. Radial artery proximal diameter 0.30 cm; multiphasicspectral Doppler flow with no plaque. Radial artery mid diameter 0.32 cm;multiphasic spectral Doppler flow with no plaque. Radial artery distaldiameter 0.30 cm; multiphasic spectral Doppler flow with no plaque. Ulnarartery mid diameter 0.35 cm; multiphasic spectral Doppler flow with noplaque. Conclusions: Normal study. No evidence of arterial occlusive disease upper extremities us Nida Landa [facility] CV VASCULAR PROCEDU RES Final Result * Routine Stress (Treadmill Only) (10/04/2024 11:49 AM EDT) Anatomical Region Laterality Modality Other 10/04/2024 11:1 3 AM EDT Narrative 10/04/2024 10:22 AM EDT [facility] Heart Station [address] [place] [address] [phone] (fax) Modified Stress (Treadmill Only)-[facility] Name: MAGALY YUNG Study Date: 10/04/2024 11:13 AM Date of : 1975 Location: [facility] Height: 74 in. Age: 49 year(s) Patient Room: 3116 Weight: 302 lb. Gender: Male Patient Status: InPt BSA: 2.59 m2 Patient Consent: Procedure explained to patient, information sheet reviewed NPO Date/Time: 10/04/2024/01:00 AM Indication: CAD, NSTEMI, Abn ECG, Congestive Heart Failure Examination: Modified Stress (Treadmill Only) Conclusions Patient had submaximal test, Banks score not reported, No ECG changes were seen in a patient with an abnormal pretest ECG and Patient had no chest pain. Stopped due to leg discomfort. Clinical Data Smoking: Former Smoker, > 1 year Hypertension: Yes Prior SD: Yes Prior Heart Failure: Yes NYHA Class: Class II Known CAD: Yes Cardiomyopathy: Ischemic Cardiomyopathy Physical Activity: Light level of activity Chest Pain: Yes Dyspnea: Yes Comment: awaiting CABG and this is to determine if asymptomatic with activity and can be DC home prior to surgery Stress Examination Details Type of Stress: ModBruce Exercise Time: 09:50 Device: Treadmill HR [place] Used: 32.00 % HR Recovery: 10 bpm Frequent VE: 14 VE/min Resolution: No Symptoms Max HR: 100 bpm Target HR: 147 bpm Achieved: No Resting HR: 67 bpm Max Predicted HR: 173 bpm Achv. of Max Predicted: 57 % BP Max: 212/82 BP at Rest: 131/70 Max RPP: 40873 mmHg*bpm Max ST Lead: V6 Max ST Phase: Exercise Stage No. in Phase: [address] Stage: Stage [address] Amplitude: -0.[address] [place]: -0.330 mV/s Max ST Time in Phase: 07:30 Artifact Count: 10 PSVC Count: 2 Bigeminy Count: 5 Couplet Count: 1 Chest Pain: no Comments: JOSUE male sedentary (+75) modified mark protocol Assessment HR Response: Appropriate heart rate response BP Response: Resting hypertension - exaggerated response Terminate Reason: Stress termination reason: Leg discomfort Resting ECG: Resting ECG: Abnormal, Resting ECG: Inferior Q waves, Nonspecific ST abnormalities were present ST Changes: no Chest Pain: no Arrhythmias: Arrhythmias seen: ventricular premature beats, Ventricular bigeminy Functional Capacity: Functional capacity is markedly impaired (75%) Exercise Interpretation: Submaximal low-level treadmill exercise test Overall Impression: Overall interpretation: No ischemic ECG changes seen Medications Date Time Name Route Form Dose Units Ordered By Given By Comment 10/04/2024 11:55 AM Aspirin (Aspir) 10/04/2024 11:55 AM Atorvastatin (Lipitor) 10/04/2024 11:55 AM Coreg 10/04/2024 11:55 AM Dapagliflozin (Farxiga) 10/04/2024 11:55 AM Furosemide (Lasix) 10/04/2024 11:55 AM Lisinopril (Prinivil, Zestril) 10/04/2024 11:55 AM spironolactone (Aldactone/Aldactazide) 10/04/2024 11:56 AM Heparin Physical Stress Examination Protocol Stage Name Time in Stage Speed Grade Load Heart Rate BP ST Level Cardiac Arrhy Cardiac Symp. Other Pain Changes Symptom Supine 01:23 0.00 mph 0.00 % 1.00 mets 63 bpm 126/68 -0.200 mm Standing 02:26 1.00 mph 0.00 % 1.70 mets 67 bpm 131/70 -0.050 mm Stage 0 03:00 1.70 mph 0.00 % 2.30 mets 81 bpm 138/84 -0.200 mm STAGE 1/2 03:00 1.70 mph 5.00 % 3.40 mets 86 bpm 142/80 -0.400 mm Stage 1 03:00 1.70 mph 10.00 % 4.60 mets 95 bpm 198/84 -0.350 mm Stage 2 00:50 2.50 mph 12.00 % 5.60 mets 100 bpm 198/84 -0.600 mm Peak-2min 02:00 0.00 mph 0.00 % 1.10 mets 75 bpm 212/82 -0.300 mm 2-4 min 02:00 0.00 mph 0.00 % 1.10 mets 73 bpm 181/83 -0.250 mm 4-6 min 02:00 0.00 mph 0.00 % 1.10 mets 72 bpm 164/74 -0.200 mm 6-8 min 02:00 0.00 mph 0.00 % 1.10 mets 71 bpm 155/77 -0.150 mm 8-10 min 02:00 0.00 mph 0.00 % 1.10 mets 68 bpm 142/84 -0.150 mm 10-12 min 00:16 0.00 mph 0.00 % 1.10 mets 69 bpm 142/84 -0.150 mm Procedure Staff Reading Group: [facility] Ordering Physician: ISABELLE YU Advanced Practitioner: VERONIQUE Nickerson Stress Option Trader: Alyson Braga Procedure Note Nelly Morrow MD - 10/04/2024 1 [facility] Heart Station [address] [place] [address] [phone] (fax) Modified Stress (Treadmill Only)-[facility] Name: MAGALY YUNG Study Date: 10/04/2024 11:13 AM Date of : 1975 Location: [facility] Height: 74 in. Age: 49 year(s) Patient Room: 3116 Weight: 302 lb. Gender: Male Patient Status: InPt BSA: 2.59 m2 Patient Consent: Procedure explained to patient, information sheet reviewed NPO Date/Time: 10/04/2024/01:00 AM Indication: CAD, NSTEMI, Abn ECG, Congestive Heart Failure Examination: Modified Stress (Treadmill Only) Conclusions Patient had submaximal test, Banks score not reported, No ECG changes were seen in a patient with an abnormal pretest ECG and Patient had no chest pain. Stopped due to leg discomfort. Clinical Data Smoking: Former Smoker, > 1 year Hypertension: Yes Prior SD: Yes Prior Heart Failure: Yes NYHA Class: Class II Known CAD: Yes Cardiomyopathy: Ischemic Cardiomyopathy Physical Activity: Light level of activity Chest Pain: Yes Dyspnea: Yes Comment: awaiting CABG and this is to determine if asymptomatic with activity and can be DC home prior to surgery Stress Examination Details Type of Stress: ModBruce Exercise Time: 09:50 Device: Treadmill HR [place] Used: 32.00 % HR Recovery: 10 bpm Frequent VE: 14 VE/min Resolution: No Symptoms Max HR: 100 bpm Target HR: 147 bpm Achieved: No Resting HR: 67 bpm Max Predicted HR: 173 bpm Achv. of Max Predicted: 57 % BP Max: 212/82 BP at Rest: 131/70 Max RPP: 10011 mmHg*bpm Max ST Lead: V6 Max ST Phase: Exercise Stage No. in Phase: [address] Stage: Stage [address] Amplitude: -0.[address] [place]: -0.330 mV/s Max ST Time in Phase: 07:30 Artifact Count: 10 PSVC Count: 2 Bigeminy Count: 5 Couplet Count: 1 Chest Pain: no Comments: JOSUE male sedentary (+75) modified mark protocol Assessment HR Response: Appropriate heart rate response BP Response: Resting hypertension - exaggerated response Terminate Reason: Stress termination reason: Leg discomfort Resting ECG: Resting ECG: Abnormal, Resting ECG: Inferior Q waves, Nonspecific ST abnormalities were present ST Changes: no Chest Pain: no Arrhythmias: Arrhythmias seen: ventricular premature beats, Ventricular bigeminy Functional Capacity: Functional capacity is markedly impaired (75%) Exercise Interpretation: Submaximal low-level treadmill exercise test Overall Impression: Overall interpretation: No ischemic ECG changes seen Medications Date Time Name Route Form Dose Units Ordered By Given By Comment 10/04/2024 11:55 AM Aspirin (Aspir) 10/04/2024 11:55 AM Atorvastatin (Lipitor) 10/04/2024 11:55 AM Coreg 10/04/2024 11:55 AM Dapagliflozin (Farxiga) 10/04/2024 11:55 AM Furosemide (Lasix) 10/04/2024 11:55 AM Lisinopril (Prinivil, Zestril) 10/04/2024 11:55 AM spironolactone (Aldactone/Aldactazide) 10/04/2024 11:56 AM Heparin Physical Stress Examination Protocol Stage Name Time in Stage Speed Grade Load Heart Rate BP ST Level Cardiac Arrhy Cardiac Symp. Other Pain Changes Symptom Supine 01:23 0.00 mph 0.00 % 1.00 mets 63 bpm 126/68 -0.200 mm Standing 02:26 1.00 mph 0.00 % 1.70 mets 67 bpm 131/70 -0.050 mm Stage 0 03:00 1.70 mph 0.00 % 2.30 mets 81 bpm 138/84 -0.200 mm STAGE 1/2 03:00 1.70 mph 5.00 % 3.40 mets 86 bpm 142/80 -0.400 mm Stage 1 03:00 1.70 mph 10.00 % 4.60 mets 95 bpm 198/84 -0.350 mm Stage 2 00:50 2.50 mph 12.00 % 5.60 mets 100 bpm 198/84 -0.600 mm Peak-2min 02:00 0.00 mph 0.00 % 1.10 mets 75 bpm 212/82 -0.300 mm 2-4 min 02:00 0.00 mph 0.00 % 1.10 mets 73 bpm 181/83 -0.250 mm 4-6 min 02:00 0.00 mph 0.00 % 1.10 mets 72 bpm 164/74 -0.200 mm 6-8 min 02:00 0.00 mph 0.00 % 1.10 mets 71 bpm 155/77 -0.150 mm 8-10 min 02:00 0.00 mph 0.00 % 1.10 mets 68 bpm 142/84 -0.150 mm 10-12 min 00:16 0.00 mph 0.00 % 1.10 mets 69 bpm 142/84 -0.150 mm Procedure Staff Reading Group: [facility] Ordering Physician: ISABELLE YU Advanced Practitioner: Faye King [facility] Stress Option Trader: Alyson Braga us Isabelle Yu MD CV STRESS PROCEDURES Final Resul t * Lavender Top (10/04/2024 4:18 AM EDT) Extra Tube Hold for add-ons. 10/04/2024 6:01 AM EDT [facility] ([facility]) Comment:Auto resulted. Blood Venous blood specimen / Unknown 10/04/2024 4:18 AM EDT 10/04/2024 4:48 AM EDT us Isabelle Yu MD LAB BLOOD ORDERABLES Final Resul t [facility] ([facility]) [address] [place] [address] * Light Green Top (10/04/2024 4:18 AM EDT) Only the most recent of2 resultswithin the time period is included. Extra Tube Hold for add-ons. 10/04/2024 6:01 AM EDT [facility] ([facility]) Comment:Auto resulted. Blood Venous blood specimen / Unknown 10/04/2024 4:18 AM EDT 10/04/2024 4:48 AM EDT us Isabelle Yu MD LAB BLOOD ORDERABLES Final Resul t Performing Organization Address City/[facility]/ZIP Co de Phone Number [facility] ([facility]) [address] [place], [place] [id number] * Anti-Xa (Heparin Level) (10/04/2024 4:18 AM EDT) Only the most recent of5 resultswithin the time period is included. Anti-Xa (Heparin) 0.38 0.3 - 0.7 IU/mL 10/04/2024 5:23 AM EDT [facility] ([facility]) Comment:Rivaroxaban and Apix aban will interfere with the anti Xa assay used to monitor UFH and LMWH. Blood Venous blood specimen / Unknown Arterial Line / Unknown 10/04/2024 4:18 AM EDT 10/04/2024 4:48 AM EDT us Isabelle Yu MD LAB BLOOD ORDERABLES Final Resul t Performing Organization Address City/[facility]/ZIP Co de Phone Number [facility] ([facility]) [address] [place] [phone] * Red Top (10/03/2024 5:52 PM EDT) Extra Tube Hold for add-ons. 10/03/2024 7:01 PM EDT [facility] ([facility]) Comment:Auto resulted. Blood Venous blood specimen / Unknown Venipuncture / Unknown 10/03/2024 5:52 PM EDT 10/03/2024 5:57 PM EDT Isabelle Yu MD LAB BLOOD ORDERABLES Final Resul t [facility] ([facility]) [address] [place], [place] [phone] * Pulmonary function testing (10/03/2024 12:48 PM EDT) Anatomical Region Laterality Modality Other Narrative 10/03/2024 12:48 PM EDT Consuelo Fernandes, REED CLEANER 10/03/2024 12:49 PM Bedside Spirometry uploaded into [employer]. us Nida Landa BRANNER MACHINE TENDER PFT ORDERABLES Final R esult * COMPLETE ECHO (TTE) W/ IMAGING AGENT (10/03/2024 11:46 AM EDT) Anatomical Region Laterality Modality Other 10/03/2024 10:1 6 AM EDT Narrative 10/03/2024 1:55 PM EDT 1 1 [facility] Heart Station [address] [place] [address] [phone] (fax) Echocardiogram-[facility] Name: MAGALY YUNG Study Date: 10/03/2024 10:16 AM B/P: 156 mmHg/92 mmHg HR: 68 bpm Date of : 1975 Location: [facility] Height: 74 in. Age: 49 year(s) Patient Room: 3116 Weight: 302 lb. Gender: Male Patient Status: InPt BSA: 2.59 m2 Indication: Pre-op major surgery, Chest Pain Examination: Echocardiogram (Complete), Lumason Contrast Image Quality: Poor Patient Consent: Procedure explained to patient Exam Details Contrast: I.V. dose of Lumason Conclusions Left Ventricle: The left ventricle is normal size. Global left ventricular systolic function is severely reduced. EF range is estimated at 30 % -35 %. Left ventricular wall thickness is mildly increased. Diffuse global hypokinesis. Grade 3, severe diastolic dysfunction (reversible restrictive LV filling pattern). Concentric left ventricular hypertrophy. Right Ventricle: The right ventricle is normal in size. Right ventricular systolic function appears normal. Unable to assess right sided pressures due to lack of measurable tricuspid regurgitation. Left Atrium: The left atrium is mildly enlarged. Aortic Valve: Trivial aortic valve regurgitation. Great Vessels: IVC: The IVC is dilated. Respiratory inspiration less than 50%, C/W elevated central venous pressure, RAP 15 mmHg. No significant valvular abnormalities Overall Conclusions: Due to suboptimal imaging Lumason contrast was administered for opacification and better delineation of endocardial borders. Measurements Left Ventricle Label Value Normal Value LVOTd 2.3 cm (19cm - 21cm) LVOT VTI 18.3 cm (18cm - 22cm) LVOT PGmax 4 mmHg LVDd, 2D 5.79 cm (4.2cm - 5.9cm) LVDs, 2D 4.68 cm (2.1cm - 4cm) IVSd, 2D 1.39 cm (0.6cm - 1.1cm) LVPWd, 2D 1.3 cm (0.6cm - 1cm) LV Mass, 2D ASE 346.46 g LV Mass Index, 2D ASE 133.8 g/m?? (50g/m?? - 102.4g/m??) RWT, MM 0.45 (0 - 0.42) LVSVI, 2D 25.1 ml/m2 LVOT PGmean 2 mmHg LVSV_LVOT 76 ml Right Ventricle Label Value Normal Value RVDd, 2D 4.08 cm (1.9cm - 3.8cm) TAPSE 1.8 cm Left Atrium Label Value Normal Value LA Volume, BP 99 ml (18ml - 58ml) LADs, 2D 4.4 cm (3cm - 4cm) LAESV index, BP 38.2 ml/m?? Right Atrium Label Value Normal Value RA Area 21.6 cm?? Aortic Valve Label Value Normal Value AV DVI 0.73 AV VTI 24.3 cm Mitral Valve Label Value Normal Value MV E Vmax 0.98 m/s MV A Vmax 0.45 m/s MV E/A 2.18 MV E/E' lateral 13.7 MV E' lateral 0.07 m/s Tricuspid Valve Label Value Normal Value RA Pressure 15 mmHg Aorta Label Value Normal Value AoRoot, 2D 3.4 cm (1.4cm - 3.8cm) Great Vessels Label Value Normal Value IVC 2.2 cm (1.2cm - 2.3cm) Valvular Assessment LVOT 0.7 - 1.1 m/sec Aortic Valve 1.0 - 1.7 m/sec Mitral Valve 0.6 - 1.3 m/sec Tricuspid Valve 0.3 - 0.7 m/sec Pulmonic Valve 0.6 - 0.9 m/sec Regurgitation Trivial Trivial No No Stenosis No No No No Max Velocity 0.99 m/sec 1.35 m/s 0.98 m/sec Max Gradient 7.00 mmHg Mean Gradient 4.00 mmHg Valve Area 3.0 cm?? Findings Left Ventricle: The left ventricle is normal size. Global left ventricular systolic function is severely reduced. EF range is estimated at 30 % -35 %. Left ventricular wall thickness is mildly increased. Diffuse global hypokinesis. Grade 3, severe diastolic dysfunction (reversible restrictive LV filling pattern). Left atrial filling pressure is elevated. Concentric left ventricular hypertrophy. No thrombus is identified in the left ventricle. Right Ventricle: The right ventricle is normal in size. Right ventricular systolic function appears normal. Unable to assess right sided pressures due to lack of measurable tricuspid regurgitation. Left Atrium: The left atrium is mildly enlarged. Right Atrium: The right atrium is mildly enlarged. Mitral Valve: The mitral valve is normal in mobility and thickness. Trivial mitral regurgitation. No mitral valve stenosis. Aortic Valve: The aortic valve is normal. Trivial aortic valve regurgitation. No aortic valve stenosis. The aortic valve is trileaflet. Tricuspid Valve: Normal tricuspid valve. No tricuspid regurgitation. No tricuspid valve stenosis. Pulmonic Valve: Normal pulmonary valve. No pulmonary regurgitation. No pulmonic valve stenosis. Aorta: The aortic root exhibits normal size. Great Vessels: IVC: The IVC is dilated. Respiratory inspiration less than 50%, C/W elevated central venous pressure, RAP 15 mmHg. No significant valvular abnormalities Pericardium: No pericardial effusion. Procedure Staff Reading Group: [facility] Referring Physician: MERRILL HERNÁNDEZ Net Solutions Architect: SURENDRA Elliott Ordering Physician: NIDA ALNDA Procedure Note Essence Waldron MD - 10/03/2024 1 1 [facility] Heart Station [address] [facility] [place] [address] [phone] (fax) Echocardiogram-[facility] Name: MAGALY YUNG Study Date: 10/03/2024 10:16 AM B/P: 156 mmHg/92 mmHg HR: 68 bpm Date of : 1975 Location: [facility] Height: 74 in. Age: 49 year(s) Patient Room: 3116 Weight: 302 lb. Gender: Male Patient Status: InPt BSA: 2.59 m2 Indication: Pre-op major surgery, Chest Pain Examination: Echocardiogram (Complete), Lumason Contrast Image Quality: Poor Patient Consent: Procedure explained to patient Exam Details Contrast: I.V. dose of Lumason Conclusions Left Ventricle: The left ventricle is normal size. Global left ventricular systolic function is severely reduced. EF range is estimated at 30 % -35 %. Left ventricular wall thickness is mildly increased. Diffuse global hypokinesis. Grade 3, severe diastolic dysfunction (reversible restrictive LV filling pattern). Concentric left ventricular hypertrophy. Right Ventricle: The right ventricle is normal in size. Right ventricular systolic function appears normal. Unable to assess right sided pressures due to lack of measurable tricuspid regurgitation. Left Atrium: The left atrium is mildly enlarged. Aortic Valve: Trivial aortic valve regurgitation. Great Vessels: IVC: The IVC is dilated. Respiratory inspiration less than 50%, C/W elevated central venous pressure, RAP 15 mmHg. No significant valvular abnormalities Overall Conclusions: Due to suboptimal imaging Lumason contrast was administered for opacification and better delineation of endocardial borders. Measurements Left Ventricle Label Value Normal Value LVOTd 2.3 cm (19cm - 21cm) LVOT VTI 18.3 cm (18cm - 22cm) LVOT PGmax 4 mmHg LVDd, 2D 5.79 cm (4.2cm - 5.9cm) LVDs, 2D 4.68 cm (2.1cm - 4cm) IVSd, 2D 1.39 cm (0.6cm - 1.1cm) LVPWd, 2D 1.3 cm (0.6cm - 1cm) LV Mass, 2D ASE 346.46 g LV Mass Index, 2D ASE 133.8 g/m?? (50g/m?? - 102.4g/m??) RWT, MM 0.45 (0 - 0.42) LVSVI, 2D 25.1 ml/m2 LVOT PGmean 2 mmHg LVSV_LVOT 76 ml Right Ventricle Label Value Normal Value RVDd, 2D 4.08 cm (1.9cm - 3.8cm) TAPSE 1.8 cm Left Atrium Label Value Normal Value LA Volume, BP 99 ml (18ml - 58ml) LADs, 2D 4.4 cm (3cm - 4cm) LAESV index, BP 38.2 ml/m?? Right Atrium Label Value Normal Value RA Area 21.6 cm?? Aortic Valve Label Value Normal Value AV DVI 0.73 AV VTI 24.3 cm Mitral Valve Label Value Normal Value MV E Vmax 0.98 m/s MV A Vmax 0.45 m/s MV E/A 2.18 MV E/E' lateral 13.7 MV E' lateral 0.07 m/s Tricuspid Valve Label Value Normal Value RA Pressure 15 mmHg Aorta Label Value Normal Value AoRoot, 2D 3.4 cm (1.4cm - 3.8cm) Great Vessels Label Value Normal Value IVC 2.2 cm (1.2cm - 2.3cm) Valvular Assessment LVOT 0.7 - 1.1 m/sec Aortic Valve 1.0 - 1.7 m/sec Mitral Valve 0.6 - 1.3 m/sec Tricuspid Valve 0.3 - 0.7 m/sec Pulmonic Valve 0.6 - 0.9 m/sec Regurgitation Trivial Trivial No No Stenosis No No No No Max Velocity 0.99 m/sec 1.35 m/s 0.98 m/sec Max Gradient 7.00 mmHg Mean Gradient 4.00 mmHg Valve Area 3.0 cm?? Findings Left Ventricle: The left ventricle is normal size. Global left ventricular systolic function is severely reduced. EF range is estimated at 30 % -35 %. Left ventricular wall thickness is mildly increased. Diffuse global hypokinesis. Grade 3, severe diastolic dysfunction (reversible restrictive LV filling pattern). Left atrial filling pressure is elevated. Concentric left ventricular hypertrophy. No thrombus is identified in the left ventricle. Right Ventricle: The right ventricle is normal in size. Right ventricular systolic function appears normal. Unable to assess right sided pressures due to lack of measurable tricuspid regurgitation. Left Atrium: The left atrium is mildly enlarged. Right Atrium: The right atrium is mildly enlarged. Mitral Valve: The mitral valve is normal in mobility and thickness. Trivial mitral regurgitation. No mitral valve stenosis. Aortic Valve: The aortic valve is normal. Trivial aortic valve regurgitation. No aortic valve stenosis. The aortic valve is trileaflet. Tricuspid Valve: Normal tricuspid valve. No tricuspid regurgitation. No tricuspid valve stenosis. Pulmonic Valve: Normal pulmonary valve. No pulmonary regurgitation. No pulmonic valve stenosis. Aorta: The aortic root exhibits normal size. Great Vessels: IVC: The IVC is dilated. Respiratory inspiration less than 50%, C/W elevated central venous pressure, RAP 15 mmHg. No significant valvular abnormalities Pericardium: No pericardial effusion. Procedure Staff Reading Group: [facility] Referring Physician: MERRILL HERNÁNDEZ Net Solutions Architect: SURENDRA Elliott Ordering Physician: NIDA LANDA us Nida Landa BRANNER MACHINE TENDER CV ECHO PROCEDURES Jazmin l Result * Vascular US carotid artery duplex bilateral (10/03/2024 11:20 AM EDT) Anatomical Region Laterality Modality Neck Ultrasound 10/03/2024 11:1 2 AM EDT Impressions 10/05/2024 11:46 AM EDT Right: Heterogeneous irregular plaque with no significant ICA spectral Doppler or color flow disturbances: ICA 84/42 cm/sec; consistent with <50% diameter reduction. Antegrade vertebral artery flow. Left: Heterogeneous irregular plaque with no significant ICA spectral Doppler or color flow disturbances: ICA 78/33 cm/sec; consistent with <50% diameter reduction. Antegrade vertebral artery flow. Right: Heterogeneous irregular plaque with no significant ICA spectral Doppler or color flow disturbances: ICA 84/42 cm/sec; consistent with <50% diameter reduction. Antegrade vertebral artery flow. Left: Heterogeneous irregular plaque with no significant ICA spectral Doppler or color flow disturbances: ICA 78/33 cm/sec; consistent with <50% diameter reduction. Antegrade vertebral artery flow. Conclusions: Antegrade flow of bilateral vertebral arteries. <50% stenosis in right internal carotid artery. <50% stenosis in left internal carotid artery. Narrative 10/05/2024 11:46 AM EDT Procedure: The carotid arteries, including common carotid, internal and external carotid artery were evaluated bilaterally. This was done using real-time imaging with velocity measurement, color Doppler, and spectral analysis. The vertebral arteries were evaluated bilaterally using color ultrasound and velocity measurement. Procedure: The carotid arteries, including common carotid, internal and external carotid artery were evaluated bilaterally. This was done using real-time imaging with velocity measurement, color Doppler, and spectral analysis. The vertebral arteries were evaluated bilaterally using color ultrasound and velocity measurement. Procedure Note Alan Jenkins MD - 10/05/2024 Procedure: The carotid arteries, including common carotid, internal andexternal carotid artery were evaluated bilaterally. This was done usingreal-time imaging with velocity measurement, color Doppler, and spectralanalysis. The vertebral arteries were evaluated bilaterally using colorultrasound and velocity measurement. Procedure: The carotid arteries, including common carotid, internal andexternal carotid artery were evaluated bilaterally. This was done usingreal-time imaging with velocity measurement, color Doppler, and spectralanalysis. The vertebral arteries were evaluated bilaterally using colorultrasound and velocity measurement. IMPRESSION: Right: Heterogeneous irregular plaque with no significant ICA spectralDoppler or color flow disturbances: ICA 84/42 cm/sec; consistent with <50%diameter reduction. Antegrade vertebral artery flow. Left: Heterogeneous irregular plaque with no significant ICA spectralDoppler or color flow disturbances: ICA 78/33 cm/sec; consistent with <50%diameter reduction. Antegrade vertebral artery flow. Right: Heterogeneous irregular plaque with no significant ICA spectralDoppler or color flow disturbances: ICA 84/42 cm/sec; consistent with <50%diameter reduction. Antegrade vertebral artery flow. Left: Heterogeneous irregular plaque with no significant ICA spectralDoppler or color flow disturbances: ICA 78/33 cm/sec; consistent with <50%diameter reduction. Antegrade vertebral artery flow. Conclusions: Antegrade flow of bilateral vertebral arteries. <50% stenosis in right internal carotid artery. <50% stenosis in left internal carotid artery. us Nida Landa BRANNER MACHINE TENDER G CV VASCULAR PROCEDU RES Final Result * Vascular US lower extremity vein mapping bilateral (10/03/2024 11:20 AM EDT) Anatomical Region Laterality Modality Lower Extremities Ultrasound 10/03/2024 11:1 9 AM EDT Impressions 10/05/2024 11:47 AM EDT Bilateral: Right: Great saphenous vein appeared greater than 0.25 cm of entire leg. Small saphenous vein appeared less than 0.20 cm entire calf. Left: Great saphenous vein appeared greater than 0.25 cm of entire leg. Small saphenous vein appeared greater than 0.25 cm of entire calf. Bilateral: Right: Great saphenous vein appeared greater than 0.25 cm of entire leg. Small saphenous vein appeared less than 0.20 cm entire calf. Left: Great saphenous vein appeared greater than 0.25 cm of entire leg. Small saphenous vein appeared greater than 0.25 cm of entire calf. Conclusions: No evidence of thrombosis of both legs. Sizes of the veins as attached Narrative 10/05/2024 11:47 AM EDT Procedure: The greater saphenous vein and small saphenous vein was evaluated in its entirety. It was examined for compressibility and measured in the transverse view. Procedure: The greater saphenous vein and small saphenous vein was evaluated in its entirety. It was examined for compressibility and measured in the transverse view. Procedure Note Alan Jenkins MD - 10/05/2024 Procedure: The greater saphenous vein and small saphenous vein wasevaluated in its entirety. It was examined for compressibility andmeasured in the transverse view. Procedure: The greater saphenous vein and small saphenous vein wasevaluated in its entirety. It was examined for compressibility andmeasured in the transverse view. IMPRESSION: Bilateral: Right: Great saphenous vein appeared greater than 0.25 cm ofentire leg. Small saphenous vein appeared less than 0.20 cm entire calf. Left: Great saphenous vein appeared greater than 0.25 cm of entire leg.Small saphenous vein appeared greater than 0.25 cm of entire calf. Bilateral: Right: Great saphenous vein appeared greater than 0.25 cm ofentire leg. Small saphenous vein appeared less than 0.20 cm entire calf. Left: Great saphenous vein appeared greater than 0.25 cm of entire leg.Small saphenous vein appeared greater than 0.25 cm of entire calf. Conclusions: No evidence of thrombosis of both legs. Sizes of the veins as attached us Nida Landa [facility] IM CV VASCULAR PROCEDU RES Final Result * XR chest 1 view (10/03/2024 9:34 AM EDT) Anatomical Region Laterality Modality Chest Computed Radiogr aphy 10/03/2024 9:55 AM EDT Impressions 10/03/2024 9:56 AM EDT Bilateral minimal linear pulmonary opacities, possibly atelectatic, with developing infectious/inflammatory process considered in the appropriate clinical context. Electronically signed: Troy Alfaro. Narrative 10/03/2024 9:56 AM EDT XR CHEST 1 VIEW: 10/03/2024 PROVIDED HISTORY: * 49 years old Male * SOB COMPARISON: None. TECHNIQUE: Portable frontal chest radiograph obtained. FINDINGS: Right perihilar and lower lobe linear pulmonary opacities. No pneumothorax or significant pleural effusions. Cardiac and mediastinal contours are within normal limits. No significant pulmonary vascular congestion. Procedure Note Troy Alfaro MD - 10/03/2024 XR CHEST 1 VIEW: 10/03/2024 PROVIDED HISTORY: *49 years old Male *SOB COMPARISON: None. TECHNIQUE: Portable frontal chest radiograph obtained. FINDINGS: Right perihilar and lower lobe linear pulmonary opacities. No pneumothoraxor significant pleural effusions. Cardiac and mediastinal contours arewithin normal limits. No significant pulmonary vascular congestion. IMPRESSION: Bilateral minimal linear pulmonary opacities, possibly atelectatic, with developing infectious/inflammatory process considered in the appropriate clinical context. Electronically signed: Troy Alfaro. Isabelle Yu MD IMG XR PROCEDURES Final Result * Magnesium (10/03/2024 9:22 AM EDT) Magnesium 2.3 1.9 - 2.7 mg/dL 10/03/2024 10:21 AM EDT [facility] ([facility]) Blood Venous blood specimen / Unknown Arterial Line / Unknown 10/03/2024 9:22 AM EDT 10/03/2024 9:47 AM EDT us Isabelle Yu MD LAB BLOOD ORDERABLES Final Resul t [facility] ([facility] [address] [place] [address] * (ABNORMAL) Basic metabolic panel (10/03/2024 9:22 AM EDT) Sodium 141 136 - 145 mmol/L 10/03/2024 10:21 AM EDT [facility] ([facility]) Potassium 3.7 3.5 - 5.1 mmol/L 10/03/2024 10:21 AM EDT [facility] ([facility]) Chloride 102 98 - 107 mmol/L 10/03/2024 10:21 AM EDT [facility] ([facility]) CO2 30 21 - 31 mmol/L 10/03/2024 10:21 AM EDT [facility] ([facility]) BUN 21 7 - 25 mg/dL 10/03/2024 10:21 AM EDT [facility] ([facility]) Creatinine 1.17 0.70 - 1.30 mg/dL 10/03/2024 10:21 AM EDT [facility] ([facility]) Glucose 122(H) 70 - 100 mg/dL 10/03/2024 10:21 AM EDT [facility] ([facility]) Calcium 9.2 8.6 - 10.3 mg/dL 10/03/2024 10:21 AM EDT [facility] ([facility]) Anion Gap 13 7 - 20 mmol/L 10/03/2024 10:21 AM EDT [facility] ([facility]) eGFR 77.4 >60.0 mL/min/1. 73m*2 10/03/2024 10:21 AM EDT [facility] ([facility]) Comment:The [facility] s estimated glomerular filtration rate (eGFR) will no longer include consideration of race in its calculation. The [employer] s eGFR Task Force developed new recommendations for [...] disproportionately affect any one group of individuals. BUN/Creatinine Ratio 17.9 09/17 10:21 AM EDT [facility] ([facility]) Blood Venous blood specimen / Unknown Arterial Line / Unknown 10/03/2024 9:22 AM EDT 10/03/2024 9:47 AM EDT us Isabelle Yu MD LAB BLOOD ORDERABLES Final Resul t [facility] [place]) [address] [place] [address] * CBC (10/03/2024 4:18 AM EDT) Auto WBC 10.55 4.00 - 10.60 10*3/uL 10/03/2024 4:53 AM EDT [facility] ([facility]) RBC 5.67 4.20 - 5.70 10*6/uL 10/03/2024 4:53 AM EDT [facility] ([facility]) Hemoglobin 15.9 13.0 - 17.0 g/dL 10/03/2024 4:53 AM EDT [facility] ([facility]) Hematocrit 49.7 39.0 - 50.0 % 10/03/2024 4:53 AM EDT [facility] ([facility]) MCV 87.7 82.0 - 98.0 fL 10/03/2024 4:53 AM EDT [facility] ([facility]) MCH 28.0 27.0 - 33.0 pg 10/03/2024 4:53 AM EDT [facility] ([facility]) MCHC 32.0 32.0 - 35.0 g/dL 10/03/2024 4:53 AM EDT [facility] ([facility]) RDW 14.0 11.5 - 15.0 % 10/03/2024 4:53 AM EDT [facility] ([facility]) Platelets 177 150 - 400 10*3/uL 10/03/2024 4:53 AM EDT [facility] ([facility]) Blood Venous blood specimen / Unknown Arterial Line / Unknown 10/03/2024 4:18 AM EDT 10/03/2024 4:41 AM EDT us Isabelle Yu MD LAB BLOOD ORDERABLES Final Resul t [facility] ([facility]) [address] [place] [address] * Platelet count (10/02/2024 7:53 PM EDT) Only the most recent of2 resultswithin the time period is included. Pathologist [facility] Platelets 194 150 - 400 10*3/uL 10/02/2024 8:29 PM EDT [facility] ([facility]) Blood Venous blood specimen / Unknown Arterial Line / Unknown 10/02/2024 7:53 PM EDT 10/02/2024 8:24 PM EDT us Isabelle Yu MD LAB BLOOD ORDERABLES Final Resul t [facility] ([facility]) [address] [place] [address] * High Sensitivity Troponin I (10/02/2024 4:23 PM EDT) Only the most recent of4 resultswithin the time period is included. High Sensitivity Troponin I 8 <20 ng/L 10/02/2024 5:42 PM EDT [facility]) Blood Venous blood specimen / Unknown Arterial Line / Unknown 10/02/2024 4:23 PM EDT 10/02/2024 4:39 PM EDT us Rao Garcia MD LAB BLOOD ORDERABLES Final Re sult Performing Organization Address City/[facility]/ZIP Co de Phone Number [facility] ([facility]) [address] [place] [address] * CORONARY ANGIOGRAPHY, LEFT HEART CATH (10/02/2024 3:18 PM EDT) Anatomical Region Laterality Modality Other Narrative 10/02/2024 3:34 PM EDT PROCEDURE PHYSICIAN: Mikael Garcia MD Clinical Presentation: 49 y.o. Male with history of Cigarette smoking, uncontrolled hypertension, and uncontrolled hyperlipidemia. He is admitted with chest pain consistent with unstable angina. He also has SOB and orthopnea. Echo also shows acute HFrEF. He is referred for coronary angiogram Final Impression: 1) Severe, multivessel CAD 2) EF 30% by LVgram 3) LVEDP is elevated at 30 mmHg consistent with acute decompensated HFrEF Plan: 1) optimal med therapy for CAD 2) consult CT surgery for CABG evaluation 3) Diuresis as tolerated for HFrEF 4) Optimize 4 drug GDMT for HFrEF as tolerated 5) smoking cessation is mandatory Procedures Performed: coronary angiogram, left heart catheterization with left ventriculogram, conscious sedation 22 min Procedure Description: The patient was brought to the cardiac catheterization lab in a fasting state. Informed written consent was obtained. he was prepped and draped in usual sterile fashion over the right wrist and bilateral groins. Time-out was performed. he was given Versed and fentanyl for sedation. 1% lidocaine was infiltrated over the right radial artery. A 6-[place] Terumo Glidesheath slender was placed in right radial artery. Radial anti-vasospasm cocktail of verapamil 2.5 mg and nitroglycerin 200 mcg was administered through the sheath. All catheter exchanges were made over the Ortiz guidewire. Coronary angiogram was performed with a Foursquareer catheter to engage the left main and the RCA. Coronary angiogram was performed in multiple orthogonal views. Next, an angled pigtail catheter was manipulated into the LV and left heart pressures obtained and left ventriculogram was performed. Pullback was performed. The procedure was then completed. All catheters and wires were removed. The right radial sheath was removed and a TR band was applied to obtain hemostasis. Specimens Removed: None Complications: None Hemodynamic Data: LV: 158/ LVEDP 30 mmHg [...] branch which is occluded which is seen filling by collaterals from left coronary injections. The occluded EVITA branch visualized by via collaterals appears to be small.. Study Details Chest pain, acute HFrEF Isabelle Yu MD CV CARDIAC CATH PROCEDURES Final Result * TSH3 Reflex to FT4 (10/02/2024 3:58 AM EDT) Pathologist [facility] TSH 3.25 0.34 - 5.60 mIU/L 10/02/2024 5:33 AM EDT [facility] ([facility]) Blood Venous blood specimen / Unknown Arterial Line / Unknown 10/02/2024 3:58 AM EDT 10/02/2024 4:47 AM EDT Rao Garcia MD LAB BLOOD ORDERABLES Final Re sult Performing Organization Address City/[facility]/ZIP Co de Phone Number [facility]) [address] [place] [id number] * (ABNORMAL) B-type natriuretic peptide (10/02/2024 3:58 AM EDT) [facility] BNP 121(H) 0 - 100 pg/mL 10/02/2024 5:16 AM EDT [facility]) Blood Venous blood specimen / Unknown Arterial Line / Unknown 10/02/2024 3:58 AM EDT 10/02/2024 4:47 AM EDT Rao Garcia MD LAB BLOOD ORDERABLES Final Re sult [facility]) [address] [place], [place] [id number] * (ABNORMAL) Hemoglobin A1c (10/02/2024 3:58 AM EDT) [facility] Hemoglobin A1C 6.8(H) 4.0 - 6.0 % 10/02/2024 9:41 AM EDT [facility] ([facility]) Estimated Average Glucose 148 mg/dL 10/02/2024 9:41 AM EDT [facility] ([facility]) Blood Venous blood specimen / Unknown Arterial Line / Unknown 10/02/2024 3:58 AM EDT 10/02/2024 4:47 AM EDT us Rao Garcia MD LAB BLOOD ORDERABLES Final Re sult [facility] ([facility]) [address] [place] [address] * (ABNORMAL) Lipid panel (10/02/2024 3:58 AM EDT) Triglycerides 132 <150 mg/dL 10/02/2024 5:18 AM EDT [facility] ([facility]) Comment: TRIGLYCERIDE REFERENCE RANGE: 20 YEARS AND OLDER CARDIOVASCULAR RISK LESS THAN 150 mg/dL LOW RISK 150 TO 199 mg/dL BORDERLINE RISK 200 mg/dL AND GREATER HIGH RISK Cholesterol 211(H) 120 - 200 mg/dL 10/02/2024 5:18 AM EDT [facility] ([facility]) LDL Calculated 164(H) 0 - 160 mg/dL 10/02/2024 5:18 AM EDT [facility] ([facility]) HDL 21(L) 23 - 92 mg/dL 10/02/2024 5:18 AM EDT [facility] ([facility]) Non HDL Cholesterol 190 10/02/2024 5:18 AM EDT [facility] ([facility]) Total VLDL-C 26 0 - 40 mg/dL 10/02/2024 5:18 AM EDT [facility] ([facility]) Cholesterol/HDL Ratio 10.0 mg/dL 10/02/2024 5:18 AM EDT [facility] ([facility]) Blood Venous blood specimen / Unknown Arterial Line / Unknown 10/02/2024 3:58 AM EDT 10/02/2024 4:47 AM EDT us Rao Garcia MD LAB BLOOD ORDERABLES Final Re sult [facility] ([facility]) [address] [place] [address] from Last 3 Months Insurance [facility] Advance Directives * Full Code (Latest Code Status on File) Date Activated Date Inactivated Comments 10/02/2024 2:45 AM 10/04/2024 7:06 PM Care Teams [employer] Car [employer] Super[employer] Relationship Specialty Start Date End Date Merrill Hernández MD [address] [place] [address] PCP - General 10/02/24
--- OUTSIDE RECORDS SUMMARY | 2024-12-19 07:22 | XMS_ITS | Encounter Summary ---
Author Organization [facility] Address [address] [place] [address] Care Team Providers Care Hedis Registered Nurse Rn Name Role Phone Claude Hernández MD Primary Care Provider [phone] Encounter Details Date Type Department Care Team (Late st Contact Info) Description 12/02/[address] [facility] ([place], [place]) [address] [place] [address] Francheska Gerard MA Social History Tobacco Use Types Packs/Day Years Used Date Smoking Tobacco: Former Cigarettes Smokeless Tobacco: Current Chew [facility] Utilities Answer Date Recorded In the past 12 months has th e electric, gas, oil, or water company [...] any time in the past 12 m [facility], were you homeless or living in a halfway (including now)? No 10/02/2024 Hunger Vital Sign [...] on file documented as of this encounter Miscellaneous Notes * Telephone Encounter - Francheska Gerard MA - 12/11/2024 11:05 AM EDT Has appt w Dr waldron will address then documented in this encounter Plan of Treatment Upcoming Encounters Date Type Department Care Team (Late st Contact Info) Description 01/03/2025 11:30 AM EDT [facility] [address] [facility] [place] [phone] Celine Murillo, MynorD 01/15/2025 10:40 AM EDT Office Visit [facility] [address] [place] [address] Li Waldron MD [address] [facility] [id number] [place] [address] documented as of this encounter Visit Diagnoses Not on filedocumented in this encounter Care Teams Hedis Registered Nurse Rn Relationship Specialty Start Date End Date Claude Hernández MD [address] [facility] [address] [address] PCP - General 10/02/24 documented as of this encounter
--- OUTSIDE RECORDS SUMMARY | 2024-12-19 07:22 | XMS_ITS | CCD ---
Author Organization [facility] Care Team Providers Care Drum Cleaner Name Role Phone YU, DANA Referring Unavailable [...] Propensity to adverse reactions to drug (disorder) [facility] Repository Problems Active Problems Problem Classification Problem Date Documented Date Episodic/Chronic Acute myocardial infarction (2 sources) Non-ST elevation (NSTEMI) myocardial infarction; Translations: [Non-ST elevation (NSTEMI) myocardial infarction] Onset: 10-03-2024 Chronic Congestive heart failure; nonhypertensive (4 sources) Unspecified systolic (congestive) heart failure; Translations: [Congestive heart failure] Onset: 10-11-2024 Chronic Coronary atherosclerosis and other heart disease (8 sources) Atherosclerotic 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; Translations: [Atherosclerotic heart disease of mcgrath coronary artery without angina pectoris] Onset: 10-03-2024 [...] appt w Dr waldron will address then [facility] Telemedicine 12-02-2024 Telemedicine [id number] Magaly Yung 1975 M Date Provider Department Center 12/02/2024 Clifford-TACO SPENCE [place] [facility] Family History Problem Relation Age of Onset Coronary artery disease Mother 45 Coronary artery disease Brother 42 Family Status - Relation Status Age at Mother Father Alive Brother Level of Service:NOCHG [place] 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 Reason for Visit and Comments: Cardiology Pharmacist - Lipid Management [Other] [facility] 29on 11-20-2024 29 Addended by: MIKAEL KEENE on: 11/20/2024 02:08 PM Modules accepted: Orders [facility] Documentationon 11-20-2024 Documentation [id number] Magaly Yung 1975 M Date Provider Department Center 11/20/2024 289-MIKAEL KEENE HVC CARD [facility] Family History Problem Relation Age of Onset Coronary artery disease Mother 45 Coronary artery disease Brother 42 Family Status - Relation Status Age at Mother Father Alive Brother Reason for Visit and Comments: Coronary Artery Disease [187] [facility] Documentation [id number] Magaly Yung 1975 M Date Provider Department Center 11/20/202455783-SFNJPART, KARA HVCANTICOAG [place] [facility] Family History Problem Relation Age of Onset Coronary artery disease Mother 45 Coronary artery disease Brother 42 Family Status - Relation Status Age at Mother Father Alive Brother Reason for Visit and Comments: Cardiology Pharmacist - Referral [Other] [facility] HPon 11-20-2024 HP H&P reviewed. The patient was examined and there are no changes to the H&P. Discussed risks, benefits, and alternative therapies with the patient, he understands and willing to proceed with coronary angiogram and possible PCI. Troy Mendez MD PGY-7 Interventional Destination Imagination Coordinator [facility] NURSNOTEon 11-20-2024 NURSNOTE RN educated pt on [...] Medical Center Orders Onlyon 11-13-2024 Orders Only [id number] Magaly Yung 1975 M Date Provider Department Center 11/13/2024 TOM [facility] VASC LAB [facility] Family History Problem Relation Age of Onset Coronary artery disease Mother 45 Coronary artery disease Brother 42 Family Status - Relation Status Age at Mother Father Alive Brother [facility] Abstracton 11-01-2024 Abstract [id number] Magaly Yung 1975 M Date Provider Department Center 11/01/2024 MIKAEL [facility] AUTH SC Medical C Family History Problem Relation Age of Onset Coronary artery disease Mother 45 Coronary artery disease Brother 42 Family Status - Relation Status Age at Mother Father Alive Brother [facility] Documentationon 10-28-2024 Documentation [id number] Magaly Yung 1975 M Date Provider Department Center 10/28/2024 MIKAEL [facility] CARD [facility] Family History Problem Relation Age of Onset Coronary artery disease Mother 45 Coronary artery disease Brother 42 Family Status - Relation Status Age at Mother Father Alive Brother Reason for Visit and Comments: Congestive Heart Failure [127] Coronary Artery Disease [187] [facility] HPon 10-28-2024 Cardiology I had heart team [...] Diagnosis Plan 1. Primary hypertension Case Request Resident Programs Assistant: Coronary angiography, Percutaneous coronary intervention 2. Multi-vessel coronary artery stenosis Case Request Resident Programs Assistant: Coronary angiography, Percutaneous coronary intervention 3. HFrEF (heart failure with reduced ejection fraction) ([facility]) Case Request Resident Programs Assistant: Coronary angiography, Percutaneous coronary intervention 4. 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 Tobacco use disorder Case Request Resident Programs Assistant: Coronary angiography, Percutaneous coronary intervention 6. Mixed hyperlipidemia Case Request Resident Programs Assistant: Coronary angiography, Percutaneous coronary intervention 7. Class 2 severe obesity due to excess calories with serious comorbidity and body mass index (BMI) of 39.0 to 39.9 in adult ([facility]) Case Request Resident Programs Assistant: Coronary angiography, Percutaneous coronary intervention 8. Coronary artery disease involving mcgrath coronary artery of mcgrath heart with unstable angina pectoris ([facility]) Case Request Resident Programs Assistant: Coronary angiography, Percutaneous coronary intervention Lab on [...] Bilirubin, Urine 10/17/2024 Negative Negative Final Specific [place], Urine 10/17/2024 1.015 1.010 - 1.030 Final [...] eGFR 10/17/2024 65.8 >60.0 mL/min/1.73m*2 Final The [facility]???s estimated glomerular filtration rate (eGFR) will [...] CHEST 1995;[id number] (more content not included)... Normal [facility] 36on 10-24-2024 36 Called and discussed with patient cardiac catherization reviewed by Dr. Arnav Valle and Dr. Mikael Keene and plan was decided to proceed with PCI instead of open heart surgery. Heart Surgery cancelled for Monday10/28/2024. Patient agreeable to plan of care and all questions and concerns answered appropriately. Normal [facility] Telephoneon 10-24-2024 Telephone [id number] Magaly Yung 1975 M Date Provider Department Center 10/24/2024 NIDA MARTINEZ JCChaim Surgery None Family History Problem Relation Age of Onset Coronary artery disease Mother 45 Coronary artery disease Brother 42 Family Status - Relation Status Age at Mother Father Alive Brother Normal [facility] Abstracton 10-22-2024 Abstract [id number] Magaly Yung 1975 M Date Provider Department Center 10/22/2024 Sh[facility] Family History Problem Relation Age of Onset Coronary artery disease Mother 45 Coronary artery disease Brother 42 Family Status - Relation Status Age at Mother Father Alive Brother Normal [facility] APTTon 10-17-2024 ACTIVATED PARTIAL THROMBOPLASTIN TIME IN PPP BY COAGULATION ASSAY 31.0 Seconds Normal 25.0-35.0 [facility] Comment on above: Result Comment: Clin ical significance of the APTT is questionable in the presence of heparin. Performed By: #### L [id number] ####[facility] (BEAKER)[address] [place] [address] CBC WITH AUTO DIFFERENTIALon 10-17-2024 Basophils (Bld) [#/Vol] 0.12 10*3/uL Normal 0.00-0.20 [facility] Comment on above: Performed By: #### L [id number] ####[facility] LAB (BEAKER)[address] [place] [address] Basophils/100 WBC (Bld) 1.0 % Normal 0.0-1.0 [facility] Comment on above: Performed By: #### L [id number] ####[facility] (BEAKER)[address] [place] [address] Eosinophils (Bld) [#/Vol] 0.35 10*3/uL Normal 0.00-0.50 [facility] Comment on above: Performed By: #### L [id number] ####[facility] ([facility] [place] [address] Eosinophils/100 WBC (Bld) 3.0 % Normal 0.0-6.0 [facility] Comment on above: Performed By: #### L [id number] ####[facility] ([facility])[address] [place] [address] Erythrocyte distribution width (RBC) [Ratio] 13.2 % Normal 11.5-15.0 [facility] Comment on above: Performed By: #### L [id number] ####[facility] ([facility])[address] [place] [address] ERYTHROCYTE MEAN CORPUSCULAR HEMOGLOBIN CONCENTRATION (G/DL) BY AUTOMATED 32.2 g/dL Normal 32.0-35.0 [facility] Comment on above: Performed By: #### L [id number] ####[facility] (BEAKER)[address] [place] [address] Hematocrit (Bld) [Volume fraction] 48.7 % Normal 39.0-50.0 [facility] Comment on above: Performed By: #### L [id number] ####[facility] (BEAKER)[address] [place] [address] Hemoglobin (Bld) [Mass/Vol] 15.7 g/dL Normal 13.0-17.0 [facility] Comment on above: Performed By: #### L [id number] ####[facility] (BEAKER)[address] [place] [address] Immature granulocytes (Bld) [#/Vol] 0.04 10*3/uL Normal 0.00-0.20 [facility] Comment on above: Performed By: #### L [id number] ####[facility] (BEAKER)[address] [place] [address] Immature granulocytes/100 WBC (Bld) 0.3 % Normal 0.0-1.0 [facility] Comment on above: Performed By: #### L [id number] ####[facility] (BEAKER)[address] [place] [address] Lymphocytes (Bld) [#/Vol] 2.14 10*3/uL Normal 1.20-4.00 [facility] Comment on above: Performed By: #### L [id number] ####[facility] (BEAKER)[address] [place] [address] Lymphocytes/100 WBC (Bld) 18.4 % Low 20.0-45.0 [facility] Comment on above: Performed By: #### L [id number] ####[facility] (BEAKER)[address] [place] [address] MCH (RBC) [Entitic mass] 28.1 pg Normal 27.0-33.0 [facility] Comment on above: Performed By: #### L [id number] ####[facility] (BEAKER)[address] [place] [address] MCV (RBC) [Entitic vol] 87.1 fL Normal 82.0-98.0 [facility] Comment on above: Performed By: #### L [id number] ####[facility] (BEAKER)[address] [place] [address] Monocytes (Bld) [#/Vol] 1.11 10*3/uL High 0.10-1.00 [facility] Comment on above: Performed By: #### L [id number] ####[facility] (BEAKER)[address] [place] [address] Monocytes/100 WBC (Bld) 9.5 % Normal 5.0-12.0 [facility] Comment on above: Performed By: #### L [id number] ####[facility] (BEAKER)[address] [place] [address] Neutrophils (Bld) [#/Vol] 7.90 10*3/uL High 1.60-7.60 [facility] Comment on above: Performed By: #### L [id number] ####[facility] (BEAKER)[address] [place] [address] Neutrophils/100 WBC (Bld) 67.8 % Normal 40.0-72.0 [facility] Comment on above: Performed By: #### L [id number] ####[facility] (BEAKER)[address] [place] [address] NRBC (PER 100 WBCS) BY AUTOMATED COUNT 0.0 % Normal 0 [facility] Comment on above: Performed By: #### L [id number] ####[facility] (BEAKER)[address] [place] [address] PLATELETS (10*3/UL) IN BLOOD AUTOMATED COUNT 236 10*3/uL Normal 150-400 [facility] Comment on above: Performed By: #### L [id number] ####[facility] (BEAKER)[address] [place] [address] RBC (Bld) [#/Vol] 5.59 10*6/uL Normal 4.20-5.70 [facility] Comment on above: Performed By: #### L [id number] ####[facility] (BEAKER)[address] [place] [address] WBC (Bld) [#/Vol] 11.66 10*3/uL High 4.00-10.60 [facility] Comment on above: Performed By: #### L [id number] ####[facility] (BEAKER)[address] [place] [address] COMPREHENSIVE METABOLIC PANE Davi 10-17-2024 Albumin [Mass/Vol] 4.1 g/dL Normal 3.5-5.7 [facility] Comment on above: Performed By: #### L [id number] ####[facility] ([facility])[address] [place] [address] ALP [Catalytic activity/Vol] 93 U/L Normal 34-104 [facility] Comment on above: Performed By: #### L [id number] ####[facility] ([facility])[address] [place] [address] ALT [Catalytic activity/Vol] 28 U/L Normal 7-52 [facility] Comment on above: Performed By: #### L [id number] ####[facility] ([facility])[address] [place] [address] Anion gap [Moles/Vol] 10 mmol/L Normal 7-20 [facility] Comment on above: Performed By: #### L [id number] ####[facility] ([facility])[address] [place] [address] AST [Catalytic activity/Vol] 16 U/L Normal 13-39 [facility] Comment on above: Performed By: #### L [id number] ####[facility] ([facility])[address] [place] [address] Bilirubin [Mass/Vol] 0.4 mg/dL Normal 0.3-1.0 [facility] Comment on above: Performed By: #### L [id number] ####[facility] ([facility])[address] [place] [address] Calcium [Mass/Vol] 9.6 mg/dL Normal 8.6-10.3 [facility] Comment on above: Performed By: #### L [id number] ####[facility] ([facility])[address] [place] [address] Chloride [Moles/Vol] 103 mmol/L Normal 98-107 [facility] Comment on above: Performed By: #### L [id number] ####[facility] (BEAKER)[address] [place] [address] CO2 [Moles/Vol] 29 mmol/L Normal 21-31 [facility] Comment on above: Performed By: #### L [id number] ####[facility] ([facility])[address] [place] [address] Creatinine [Mass/Vol] 1.34 mg/dL High 0.70-1.30 [facility] Comment on above: Performed By: #### L [id number] ####[facility] ([facility])[address] [place] [address] GLOMERULAR FILTRATION RATE ML/MIN/1.73 SQ M.PREDICTED 65.8 mL/min/1.73m*2 Normal >60.0 [facility] Comment on above: Result Comment: [facility]???s estimated glomerular filtration rate (eGFR) will [...] ####[facility] ([facility])[address] [place] [address] Glucose [Mass/Vol] 159 mg/dL High 70-100 [facility] Comment on above: Performed By: #### L [id number] ####[facility] ([facility])[address] [place] [address] Potassium [Moles/Vol] 4.4 mmol/L Normal 3.5-5.1 [facility] Comment on above: Performed By: #### L [id number] ####[facility] ([facility])[address] [place] [address] Protein [Mass/Vol] 7.0 g/dL Normal 6.0-8.3 [facility] Comment on above: Performed By: #### L [id number] ####[facility] (BEAKER)[address] [place] [address] Sodium [Moles/Vol] 138 mmol/L Normal 136-145 [facility] Comment on above: Performed By: #### L [id number] ####[facility] (BEAKER)[address] [place] [address] Urea nitrogen [Mass/Vol] 19 mg/dL Normal 7-25 [facility] Comment on above: Performed By: #### L [id number] ####[facility] (BEAKER)[address] [place] [address] UREA NITROGEN/CREATININE (MASS RATIO) IN SER/PLAS 14.2 Normal [facility] Comment on above: Performed By: #### L [id number] ####[facility] (BEAKER)[address] [place] [address] Labon 10-17-2024 Lab [id number] Magaly Yung 1975 M Date Provider Department [place] 10/17/2024 2245-[facility] Family History Problem Relation Age of Onset Coronary artery disease Mother 45 Coronary artery disease Brother 42 Family Status - Relation Status Age at Mother Father Alive Brother Normal [facility] PROTIME-INRon 10-17-2024 INR IN PPP BY COAGULATION ASSAY 1.11 High 0.90-1.10 [facility] Comment on above: Result Comment: ACCC [...] [facility] ([facility]) [address] [place] [address] PROTHROMBIN TIME (PT) IN PPP BY COAGULATION ASSAY 14.3 Seconds Normal 12.3-14.8 [facility] Comment on above: Performed By: #### L [id number] #### [facility] ([facility]) [address] [place] [address] TYPE AND SCREENon 10-17-2024 AB SCREEN Negative Normal [facility] Comment on above: Performed By: #### L [id number] #### [facility] BLOOD BANK , ABO group Nom (Bld) AB Normal [facility] Comment on above: Performed By: #### L [id number] #### [facility] B[facility] , RH TYPE IN BLOOD Positive Normal [facility] Comment on above: Performed By: #### L [id number] #### [facility] B[facility] B[facility] , URINALYSISon 10-17-2024 BILIRUBIN, TOTAL PRESENCE IN URINE Negative Normal Negative [facility] Comment on above: Order Comment: Micro scopics not performed on urines with negative chemical reactions unless requested on original order. Performed By: #### L [id number] ####[facility] (BEPlum)[address] [facility] [place] [address] Clarity (U) Clear Normal Clear [facility] Comment on above: Order Comment: Micro scopics not performed on urines with negative chemical reactions unless requested on original order. Performed By: #### L [id number] ####[facility] (BEAKER)[address] [facility] [place] [address] Color (U) Yellow Normal Yellow, Light Yellow, Colorless [facility] Comment on above: Order Comment: Micro scopics not performed on urines with negative chemical reactions unless requested on original order. Performed By: #### L [id number] ####[facility] ([facility])[address] [facility] [place] [address] Glucose (U) [Mass/Vol] mg/dL Abnormal Normal [facility] Comment on above: Order Comment: Micro scopics not performed on urines with negative chemical reactions unless requested on original order. Performed By: #### L [id number] ####[facility] ([facility])[address] [facility] [place] [address] HEMOGLOBIN PRESENCE IN URINE Negative Normal Negative [facility] Comment on above: Order Comment: Micro scopics not performed on urines with negative chemical reactions unless requested on original order. Performed By: #### L [id number] ####[facility] ([facility])[address] [facility] [place] [address] Ketones Ql (U) Negative Normal Negative [facility] Comment on above: Order Comment: Micro scopics not performed on urines with negative chemical reactions unless requested on original order. Performed By: #### L [id number] ####[facility] ([facility])[address] [place] [address] LEUKOCYTE ESTERASE PRESENCE IN URINE BY TEST STRIP Negative Normal Negative [facility] Comment on above: Order Comment: Micro scopics not performed on urines with negative chemical reactions unless requested on original order. Performed By: #### L [id number] ####[facility] ([facility])[address] [place] [address] NITRITE PRESENCE IN URINE Negative Normal Negative [facility] Comment on above: Order Comment: Micro scopics not performed on urines with negative chemical reactions unless requested on original order. Performed By: #### L [id number] ####[facility] ([facility] [place] [address] pH (U) 6.0 [pH] Normal 5.0-8.0 [facility] Comment on above: Order Comment: Micro scopics not performed on urines with negative chemical reactions unless requested on original order. Performed By: #### L [id number] ####[facility] ([facility])[address] [place] [address] Protein (U) [Mass/Vol] Negative Normal Negative [facility] Comment on above: Order Comment: Micro scopics not performed on urines with negative chemical reactions unless requested on original order. Performed By: #### L [id number] ####[facility] ([facility])[address] [place] [address] Specific gravity (U) [Rel density] 1.015 Normal 1.010-1.030 [facility] Comment on above: Order Comment: Micro scopics not performed on urines with negative chemical reactions unless requested on original order. Performed By: #### L [id number] ####[facility] ([facility])[address] [facility] [place] [address] UROBILINOGEN (MG/DL) IN URINE Normal Normal Normal [facility] Comment on above: Order Comment: Micro scopics not performed on urines with negative chemical reactions unless requested on original order. Performed By: #### L [id number] ####[facility] ([facility])[address] [place] [address] Documentationon 10-16-2024 Documentation [id number] Magaly Yung 1975 M Date Provider Department Center 10/16/202499228-VZPINTPJARED PAZ [facility] HeartVAS Family History Problem Relation Age of Onset Coronary artery disease Mother 45 Coronary artery disease Brother 42 Family Status - Relation Status Age at Mother Father Alive Brother Reason for Visit and Comments: HF Inpatient satisfaction survey sent. [Other] Normal [facility] Abstracton 10-15-2024 Abstract [id number] Magaly Yung 1975 M Date Provider Department Center 10/15/2024 [id number]-VNAFVQERIN HESS [facility] AUTH SC Medical C Family History Problem Relation Age of Onset Coronary artery disease Mother 45 Coronary artery disease Brother 42 Family Status - Relation Status Age at Mother Father Alive Brother Normal [facility] Abstract [id number] Magaly Yung 1975 M Date Provider Department Center 10/15/2024 2020-G[facility]O [facility] HeartVAS Family History Problem Relation Age of Onset Coronary artery disease Mother 45 Coronary artery disease Brother 42 Family Status - Relation Status Age at Mother Father Alive Brother [facility] Follow-Upon 10-11-2024 Follow-Up [id number] Magaly Yung 1975 M Date Provider Department Center 10/11/2024 [id number]-NYTMRMESSENCE [facility]ALDRON [facility] Family History Problem Relation Age of Onset Coronary artery disease Mother 45 Coronary artery disease Brother 42 Family Status - Relation Status Age at Mother Father Alive Brother Level of Service:32787 [place] OFFICE/OUTPATIENT ESTABLISHED LOW MDM 20 MIN Reason for Visit and Comments: Coronary Artery Disease [187] - Scheduled for CABG on 10/21/2024 at [facility] Congestive Heart Failure [127] - Denies SOB and LE edema. Hyperlipidemia [182] - He's getting back pain s/p starting atorvastatin. Hypertension [267004] Fatigue [46] [facility] 36on 10-07-2024 36 Phoned patient for Hospital Follow up & pre-op instruction Instructed patient to come to [facility] the week of October 14 for pre-op [...] Check in at registration desk lobby of [facility] then check in on second floor at surgical waiting room desk. Patient denies chest pain and shortness of breath. Patien requesting to move surgery date up as he is currently off work. I told patient I would relay his request to Dr. Hess. [facility] 36 Discharge date: 10/04 Call date: 10/07/24 [...] possible to have his surgery moved up. Account Resolution Analyst will notify the CT Surgery RN of the patient's question. Pt denied any additional questions or concerns at this time. Normal [facility] Telephoneon 10-07-2024 Telephone [id number] Magaly Yung 1975 M Date Provider Department [place] 10/07/2024 JARED ROMERO [facility] HeartVAS No family history on file Reason for Visit and Comments: HF post discharge call. [Other] Normal [facility] 36on 10-05-2024 36 Post Discharge Call Good morning, I am Gisela Houser RN a lead nurse from [facility]. I am calling you to follow [...] No Patient Name Magaly Yung Date 10/05/24 [facility] Telephoneon 10-05-2024 Telephone [id number] Magaly Yung Mono 1975 M Provider Department [place] 10/05/[address] [facility] Medical C Family History Problem Relation Age of Onset Coronary artery disease Mother 45 Coronary artery disease Brother 42 Family Status - Relation Status Age at Mother Father Alive Brother Reason for Visit and Comments: Hospital Follow-up [832] Normal [facility] 30on 10-04-2024 30 The patient is Moderately Stable - Low risk of patient condition declining or worsening The patient's goals for the shift include comfort,rest The clinical goals for the shift include stable vitals, comfort Over the shift, the patient did not make progress toward the following goals. Barriers to progression include na. Recommendations to address these barriers include na. Normal [facility] 30 The patient is Moderately Stable [...] and maintained or improved Outcome: Progressing Normal [facility] ANTI-XA (HEPARIN LEVEL)on HEPARIN UNFRACTIONATED (U/ML) IN PPP BY CHROMOGENIC METHOD 0.38 IU/mL Normal 0.3-0.7 [facility] Comment on above: Result Comment: Meg roxaban and Apixaban will interfere with the anti Xa assay used to monitor UFH and LMWH. Performed By: #### L [id number] ####[facility] (BEAKER)[address] [place] [address] CONSULTon 10-04-2024 CONSULT discharge planning: to Home Patient came to this admission from their private residence in the community, where they live with their spouse and family. - no OT or PT orders in place at this time - LDAs tab not listing any open wounds or closed skin issues at this time - follow up with [facility] on AVS - follow up with [facility] on AVS Normal [facility] 30on 10-03-2024 30 Daily Case Managemen [...] patient Other Other: Heart Failure 10/02/24 0245 [facility] 30 The patient is Moderately Stable - Low risk of patient condition declining or worsening The patient's goals for the shift include comfort, rest The clinical goals for the shift include stable vitals, comfort Over the shift, the patient did not make progress toward the following goals. Barriers to progression include. Recommendations to address these barriers include. Normal [facility] 30 The patient is Moderately Stable [...] monitored and maintained or improved Outcome: Progressing [facility] ANTI-XA (HEPARIN LEVEL)on HEPARIN UNFRACTIONATED (U/ML) IN PPP BY CHROMOGENIC METHOD 0.37 IU/mL Normal 0.3-0.7 [facility] Comment on above: Result Comment: Gilmer roxaban and Apixaban will interfere with the anti Xa assay used to monitor UFH and LMWH. Performed By: #### L [id number] #### [facility] ([facility]) [address] [place] [address] HEPARIN UNFRACTIONATED (U/ML) IN PPP BY CHROMOGENIC METHOD 0.32 IU/mL Normal 0.3-0.7 [facility] Comment on above: Result Comment: Gilmer roxaban and Apixaban will interfere with the anti Xa assay used to monitor UFH and LMWH. Performed By: #### L [id number] ####[facility] ([facility])[address] [place] [address] HEPARIN UNFRACTIONATED (U/ML) IN PPP BY CHROMOGENIC METHOD 0.34 IU/mL Normal 0.3-0.7 [facility] Comment on above: Result Comment: Gilmer roxaban and Apixaban will interfere with the anti Xa assay used to monitor UFH and LMWH. Performed By: #### L [id number] ####[facility] ([facility])[address] [place] [address] HEPARIN UNFRACTIONATED (U/ML) IN PPP BY CHROMOGENIC METHOD 0.22 IU/mL Low 0.3-0.7 [facility] Comment on above: Order Comment: Check anti-Xa level every 6 hours while on heparin infusion, or per protocol. Result Comment: Gilmer roxaban and Apixaban will interfere with the anti Xa assay used to monitor UFH and LMWH. Performed By: #### L [id number] ####[facility] ([facility])[address] [place] [address] BASIC METABOLIC PANELon 09-17 Anion gap [Moles/Vol] 13 mmol/L Normal 7-20 [facility] Comment on above: Performed By: #### L [id number] #### [facility] (BE[facility]ER) [address] [place] [address] Calcium [Mass/Vol] 9.2 mg/dL Normal 8.6-10.3 [facility] Comment on above: Performed By: #### L [id number] #### [facility] ([facility]) [address] [place] [address] Chloride [Moles/Vol] 102 mmol/L Normal 98-107 [facility] Comment on above: Performed By: #### L [id number] #### [facility] ([facility]) [address] [place] [address] CO2 [Moles/Vol] 30 mmol/L Normal 21-31 [facility] Comment on above: Performed By: #### L [id number] #### [facility] ([facility]) [address] [place] [address] Creatinine [Mass/Vol] 1.17 mg/dL Normal 0.70-1.30 [facility] Comment on above: Performed By: #### L [id number] #### [facility] ([facility]) [address] [place] [address] GLOMERULAR FILTRATION RATE ML/MIN/1.73 SQ M.PREDICTED 77.4 mL/min/1.73m*2 Normal >60.0 [facility] Comment on above: Result Comment: The [facility]???s estimated glomerular filtration rate (eGFR) will [...] [facility] ([facility]) [address] [place] [address] Glucose [Mass/Vol] 122 mg/dL High 70-100 [facility] Comment on above: Performed By: #### L [id number] #### [facility] ([facility]) [address] [place] [address] Potassium [Moles/Vol] 3.7 mmol/L Normal 3.5-5.1 [facility] Comment on above: Performed By: #### L [id number] #### [facility] ([facility]) [address] [place] [address] Sodium [Moles/Vol] 141 mmol/L Normal 136-145 [facility] Comment on above: Performed By: #### L [id number] #### [facility] ([facility]) [address] [place] [address] Urea nitrogen [Mass/Vol] 21 mg/dL Normal 7-25 [facility] Comment on above: Performed By: #### L [id number] #### [facility] ([facility]) [address] [place] [address] UREA NITROGEN/CREATININE (MASS RATIO) IN SER/PLAS 17.9 Normal [facility] Comment on above: Performed By: #### L [id number] #### [facility] ([facility]) [address] [place] [address] CBCon 10-03-2024 Erythrocyte distribution width (RBC) [Ratio] 14.0 % Normal 11.5-15.0 [facility] Comment on above: Performed By: #### L [id number] #### [facility] ([facility]) [address] [place] [address] ERYTHROCYTE MEAN CORPUSCULAR HEMOGLOBIN CONCENTRATION (G/DL) BY AUTOMATED 32.0 g/dL Normal 32.0-35.0 [facility] Comment on above: Performed By: #### L [id number] #### [facility] ([facility]) [address] [place] [address] Hematocrit (Bld) [Volume fraction] 49.7 % Normal 39.0-50.0 [facility] Comment on above: Performed By: #### L [id number] #### [facility] ([facility]ER) [address] [place] [address] Hemoglobin (Bld) [Mass/Vol] 15.9 g/dL Normal 13.0-17.0 [facility] Comment on above: Performed By: #### L [id number] #### [facility] ([facility]) [address] [place] [address] MCH (RBC) [Entitic mass] 28.0 pg Normal 27.0-33.0 [facility] Comment on above: Performed By: #### L [id number] #### [facility] ([facility]) [address] [place] [address] MCV (RBC) [Entitic vol] 87.7 fL Normal 82.0-98.0 [facility] Comment on above: Performed By: #### L [id number] #### [facility] ([facility]) [address] [place] [address] PLATELETS (10*3/UL) IN BLOOD AUTOMATED COUNT 177 10*3/uL Normal 150-400 [facility] Comment on above: Performed By: #### L [id number] #### [facility] ([facility]) [address] [place] [address] RBC (Bld) [#/Vol] 5.67 10*6/uL Normal 4.20-5.70 [facility] Comment on above: Performed By: #### L [id number] #### [facility] ([facility]) [address] [place] [address] WBC (Bld) [#/Vol] 10.55 10*3/uL Normal 4.00-10.60 [facility] Comment on above: Performed By: #### L [id number] #### [facility] ([facility]) [address] [place] [address] CONSULTon 10-03-2024 CONSULT Inpatient consult to Cardiothoracic Surgery Consult performed by: Nida Landa CNP Consult ordered by: Mikael Keene MD Reason for consult: Severe Multivessel Coronary Artery Disease Cardiothoracic Surgery Consultation Note 10/03/2024 Room: [facility]3116- Reason For Consult evaluate for CABG Referring Provider: Merrill Hernández MD History Of Present Illness Magaly Yung is a 49 y.o. male with PMH of smoker, obesity, strong family history of CAD who presented to [facility] as a direct transfer where he was experiencing intermittent chest pain, described as anterior chest dull to pressure-like associated with dyspnea radiating to left. [facility] labs remarkable for BNP 448, BUN 15.9, [...] is somewhat limited. He was transferred to [facility] for cardiac catherization. Underwent cardiac cath yesterday with Dr. Mikael Keene and was found to have severe multivessel CAD. CT Surgery was consulted for surgical evaluation and recommendations. Seen bedside with Dr. Hess this morning. Remains on continuous heparin infusion. Denies chest pain or SOB. Most recent troponin 8. 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) Primary hypertension HFrEF (heart failure with reduced ejection fraction) ([facility]) Obesity Former smoker Plan : -Patient seen and evaluated by Cardiothoracic Team. Dr. Erin Hess personally examined the patient and reviewed The Cardiac Catherization, Echocardiogram, CXR, and Other Diagnostic Testing. Findings discussed with patient. Explained current disease process and reviewed treatment options. -CT Surgery Recommendation: Coronary Artery Bypass Grafting. Echocardiogram from [place] not transferred over, will obtain one this [...] 50.7%, WBC Count: 13.7 10???/?L, Platelet Count: 976160 cells/?L PreOp Medications: Oral diabetes control Substance Abuse: Former smoker Risk Factors / Comorbidities: Diabetes Mellitus , Hypertension, Family Hx of CAD Pulmonary RF: Moderate CLD Cardiac Status: Acute heart failure, NYHA Class III, Ejection Fraction = 30% Coronary Artery Disease: 3 vessels diseased, Proximal LAD Stenosis >= 70%, Non-ST Elevation PR, PR: 1 to 7 Days -Pre-Op Testing needed [...] 0941 Revie (more content not included)... Normal [facility] MAGNESIUMon 10-03-2024 Magnesium [Mass/Vol] 2.3 mg/dL Normal 1.9-2.7 [facility] Comment on above: Performed By: #### L [id number] #### [facility] ([facility]) [address] [place] [address] URINALYSISon 10-03-2024 BILIRUBIN, TOTAL PRESENCE IN URINE Negative Normal Negative [facility] Comment on above: Order Comment: Micro scopics not performed on urines with negative chemical reactions unless requested on original order. Performed By: #### L [id number] #### [facility] ([facility]) [address] [place] [address] Clarity (U) Clear Normal Clear [facility] Comment on above: Order Comment: Micro scopics not performed on urines with negative chemical reactions unless requested on original order. Performed By: #### L [id number] #### [facility] ([facility]) [address] [place] [address] Color (U) Light-Yellow Normal Colorless, Yellow, Light-Yellow [facility] Comment on above: Order Comment: Micro scopics not performed on urines with negative chemical reactions unless requested on original order. Performed By: #### L [id number] #### [facility] ([facility]) [address] [facility] [address] Glucose (U) [Mass/Vol] mg/dL Abnormal Normal [facility] Comment on above: Order Comment: Micro scopics not performed on urines with negative chemical reactions unless requested on original order. Performed By: #### L [id number] #### [facility] ([facility]) [address] [place] [address] HEMOGLOBIN PRESENCE IN URINE Negative Normal Negative [facility] Comment on above: Order Comment: Micro scopics not performed on urines with negative chemical reactions unless requested on original order. Performed By: #### L [id number] #### [facility] ([facility]) [address] [place] [address] Ketones Ql (U) Negative Normal Negative [facility] Comment on above: Order Comment: Micro scopics not performed on urines with negative chemical reactions unless requested on original order. Performed By: #### L [id number] #### [facility] ([facility]) [address] [place] [address] LEUKOCYTE ESTERASE PRESENCE IN URINE BY TEST STRIP Negative Normal Negative [facility] Comment on above: Order Comment: Micro scopics not performed on urines with negative chemical reactions unless requested on original order. Performed By: #### L [id number] #### [facility] ([facility]) [address] [place] [address] NITRITE PRESENCE IN URINE Negative Normal Negative [facility] Comment on above: Order Comment: Micro scopics not performed on urines with negative chemical reactions unless requested on original order. Performed By: #### L [id number] #### [facility] ([facility]) [address] [place] [address] pH (U) 6.0 [pH] Normal 5.0-8.0 [facility] Comment on above: Order Comment: Micro scopics not performed on urines with negative chemical reactions unless requested on original order. Performed By: #### L [id number] #### [facility] ([facility]) [address] [place] [address] Protein (U) [Mass/Vol] Negative Normal Negative [facility] Comment on above: Order Comment: Micro scopics not performed on urines with negative chemical reactions unless requested on original order. Performed By: #### L [id number] #### [facility] ([facility]) [address] [place] [address] Specific gravity (U) [Rel density] 1.020 Normal 1.010-1.030 [facility] Comment on above: Order Comment: Micro scopics not performed on urines with negative chemical reactions unless requested on original order. Performed By: #### L [id number] #### [facility] ([facility]) [address] [place] [address] UROBILINOGEN (MG/DL) IN URINE 2.0 mg/dL Abnormal Normal [facility] Comment on above: Order Comment: Micro scopics not performed on urines with negative chemical reactions unless requested on original order. Performed By: #### L [id number] #### [facility] ([facility]) [address] [place] [address] 30on 10-02-2024 30 Daily Case Managemen t Update Multidisciplinary rounds have been completed. Barriers to Discharge: Patient is a transfer from [facility] for chest pain, cardiology consulted and plan to take patient for heart cath. Account Resolution Analyst did read in previous chart notes As above also would recommend outpatient sleep study due to this show card writer reached out to primary team about getting pulmonary Navigator consult, waiting to hear back. Discharge dispo: plan at this time is for patient to discharge home when medically ready. Account Resolution Analyst heard back from Dr Yu, and was given order to pulmonary navigation consult. Account Resolution Analyst placed order. Diet: Dietary Orders (From admission, [...] Other Other: Heart Failure 10/02/24 0245 Normal [facility] 30 The patient is Moderately Stable - Low risk of patient condition declining or worsening The patient's goals for the shift include comfort The clinical goals for the shift include stable vitals Over the shift, the patient did not make progress toward the following goals. Barriers to progression include. Recommendations to address these barriers include. Normal [facility] 30 The patient is Moderately Stable [...] and behaviors that affect risk of falls Saxton fall precautions as indicated by assessment Educate [...] conditions and prevent exacerbation or deterioration Normal [facility] Connor 04-16-2025 ACTIVATED PARTIAL THROMBOPLASTIN TIME IN PPP BY COAGULATION ASSAY 28.5 Seconds Normal 25.0-35.0 [facility] Comment on above: Order Comment: Basel ine aPTT before initiating heparin infusion. Result Comment: Clin ical significance of the APTT is questionable in the presence of heparin. Performed By: #### L [id number] #### [facility] ([facility]) [address] [place] [address] ACTIVATED PARTIAL THROMBOPLASTIN TIME IN PPP BY COAGULATION ASSAY 28.2 Seconds Normal 25.0-35.0 [facility] Comment on above: Order Comment: Basel ine aPTT before initiating heparin infusion. Result Comment: Clin ical significance of the APTT is questionable in the presence of heparin. Performed By: #### L [id number] #### [facility] ([facility]) [address] [place] [address] B-TYPE NATRIURETIC PEPTIDEon 10-02-2024 Natriuretic peptide B (Bld) [Mass/Vol] 121 pg/mL High 0-100 [facility] Comment on above: Performed By: #### L [id number] ####[facility] ([facility])[address] [place] [address] CBC WITH AUTO DIFFERENTIALon 10-02-2024 Basophils (Bld) [#/Vol] 0.10 10*3/uL Normal 0.00-0.20 [facility] Comment on above: Performed By: #### L [id number] #### [facility] ([facility]) [address] [place] [address] Basophils/100 WBC (Bld) 0.7 % Normal 0.0-1.0 [facility] Comment on above: Performed By: #### L [id number] #### [facility] ([facility]) [address] [place] [address] Eosinophils (Bld) [#/Vol] 0.44 10*3/uL Normal 0.00-0.50 [facility] Comment on above: Performed By: #### L [id number] #### [facility] ([facility]) [address] [place] [address] Eosinophils/100 WBC (Bld) 3.2 % Normal 0.0-6.0 [facility] Comment on above: Performed By: #### L [id number] #### [facility] ([facility]) [address] [place] [address] Erythrocyte distribution width (RBC) [Ratio] 13.8 % Normal 11.5-15.0 [facility] Comment on above: Performed By: #### L [id number] #### [facility] ([facility]) [address] [place] [address] ERYTHROCYTE MEAN CORPUSCULAR HEMOGLOBIN CONCENTRATION (G/DL) BY AUTOMATED 32.0 g/dL Normal 32.0-35.0 [facility] Comment on above: Performed By: #### L [id number] #### [facility] ([facility]) [address] [place] [address] Hematocrit (Bld) [Volume fraction] 50.7 % High 39.0-50.0 [facility] Comment on above: Performed By: #### L [id number] #### [facility] ([facility]) [address] [place] [address] Hemoglobin (Bld) [Mass/Vol] 16.2 g/dL Normal 13.0-17.0 [facility] Comment on above: Performed By: #### L [id number] #### [facility] ([facility]) [address] [place] [address] Immature granulocytes (Bld) [#/Vol] 0.06 10*3/uL Normal 0.00-0.20 [facility] Comment on above: Performed By: #### L [id number] #### [facility] ([facility]) [address] [place] [address] Immature granulocytes/100 WBC (Bld) 0.4 % Normal 0.0-1.0 [facility] Comment on above: Performed By: #### L [id number] #### [facility] ([facility]) [address] [place] [address] Lymphocytes (Bld) [#/Vol] 3.01 10*3/uL Normal 1.20-4.00 [facility] Comment on above: Performed By: #### L [id number] #### [facility] ([facility]) [address] [place] [address] Lymphocytes/100 WBC (Bld) 21.9 % Normal 20.0-45.0 [facility] Comment on above: Performed By: #### L [id number] #### [facility] ([facility]) [address] [place] [address] MCH (RBC) [Entitic mass] 27.6 pg Normal 27.0-33.0 [facility] Comment on above: Performed By: #### L [id number] #### [facility] ([facility]) [address] [place] [address] MCV (RBC) [Entitic vol] 86.4 fL Normal 82.0-98.0 [facility] Comment on above: Performed By: #### L [id number] #### [facility] ([facility]) [address] [place] [address] Monocytes (Bld) [#/Vol] 0.95 10*3/uL Normal 0.10-1.00 [facility] Comment on above: Performed By: #### L [id number] #### [facility] ([facility]) [address] [place] [address] Monocytes/100 WBC (Bld) 6.9 % Normal 5.0-12.0 [facility] Comment on above: Performed By: #### L [id number] #### [facility] ([facility]) [address] [place] [address] Neutrophils (Bld) [#/Vol] 9.18 10*3/uL High 1.60-7.60 [facility] Comment on above: Performed By: #### L [id number] #### [facility] ([facility]) [address] [place] [address] Neutrophils/100 WBC (Bld) 66.9 % Normal 40.0-72.0 [facility] Comment on above: Performed By: #### L [id number] #### [facility] ([facility]) [address] [place] [address] NRBC (PER 100 WBCS) BY AUTOMATED COUNT 0.0 % Normal 0 [facility] Comment on above: Performed By: #### L [id number] #### [facility] ([facility]) [address] [place] [address] PLATELETS (10*3/UL) IN BLOOD AUTOMATED COUNT 181 10*3/uL Normal 150-400 [facility] Comment on above: Performed By: #### L [id number] #### [facility] ([facility]) [address] [place] [address] RBC (Bld) [#/Vol] 5.87 10*6/uL High 4.20-5.70 [facility] Comment on above: Performed By: #### L [id number] #### [facility] ([facility]) [address] [place] [address] WBC (Bld) [#/Vol] 13.74 10*3/uL High 4.00-10.60 [facility] Comment on above: Performed By: #### L [id number] #### [facility] ([facility]) [address] [place] [address] COMPREHENSIVE METABOLIC PANE Davi 10-02-2024 Albumin [Mass/Vol] 4.3 g/dL Normal 3.5-5.7 [facility] Comment on above: Performed By: #### L [id number] ####[facility] ([facility])[address] [place] [address] ALP [Catalytic activity/Vol] 80 U/L Normal 34-104 [facility] Comment on above: Performed By: #### L [id number] ####[facility] ([facility])[address] [place] [address] ALT [Catalytic activity/Vol] 22 U/L Normal 7-52 [facility] Comment on above: Performed By: #### L [id number] ####[facility] ([facility])[address] [place] [address] Anion gap [Moles/Vol] 11 mmol/L Normal 7-20 [facility] Comment on above: Performed By: #### L [id number] ####[facility] ([facility])[address] [place] [address] AST [Catalytic activity/Vol] 17 U/L Normal 13-39 [facility] Comment on above: Performed By: #### L [id number] ####[facility] ([facility])[address] [place] [address] Bilirubin [Mass/Vol] 0.6 mg/dL Normal 0.3-1.0 [facility] Comment on above: Performed By: #### L [id number] ####[facility] ([facility])[address] [place] [address] Calcium [Mass/Vol] 9.2 mg/dL Normal 8.6-10.3 [facility] Comment on above: Performed By: #### L [id number] ####[facility] ([facility])[address] [place] [address] Chloride [Moles/Vol] 102 mmol/L Normal 98-107 [facility] Comment on above: Performed By: #### L [id number] ####[facility] ([facility])[address] [place] [address] CO2 [Moles/Vol] 29 mmol/L Normal 21-31 [facility] Comment on above: Performed By: #### L [id number] ####[facility] ([facility])[address] [place] [address] Creatinine [Mass/Vol] 1.11 mg/dL Normal 0.70-1.30 [facility] Comment on above: Performed By: #### L [id number] ####[facility] ([facility])[address] [place] [address] GLOMERULAR FILTRATION RATE ML/MIN/1.73 SQ M.PREDICTED 82.4 mL/min/1.73m*2 Normal >60.0 [facility] Comment on above: Result Comment: The [facility]???s estimated glomerular filtration rate (eGFR) will [...] ####[facility] ([facility])[address] [place] [address] Glucose [Mass/Vol] 181 mg/dL High 70-100 [facility] Comment on above: Performed By: #### L [id number] ####[facility] ([facility])[address] [place] [address] Potassium [Moles/Vol] 3.4 mmol/L Low 3.5-5.1 [facility] Comment on above: Performed By: #### L [id number] ####[facility] ([facility]AKER)[address] [place] [address] Protein [Mass/Vol] 7.0 g/dL Normal 6.0-8.3 [facility] Comment on above: Performed By: #### L [id number] ####[facility] ([facility])[address] [place] [address] Sodium [Moles/Vol] 139 mmol/L Normal 136-145 [facility] Comment on above: Performed By: #### L [id number] ####[facility] ([facility])[address] [place] [address] Urea nitrogen [Mass/Vol] 18 mg/dL Normal 7-25 [facility] Comment on above: Performed By: #### L [id number] ####[facility] ([facility]AKER)[address] [place] [address] UREA NITROGEN/CREATININE (MASS RATIO) IN SER/PLAS 16.2 Normal [facility] Comment on above: Performed By: #### L [id number] ####[facility] ([facility])[address] [place] [address] CONSULTon 10-02-2024 CONSULT Adult Nutrition Assessment: Name: Magaly Yung Date: 1975 Date of Visit: 10/02/24 Admission Dx: NSTEMI (non-ST elevated myocardial infarction) ([facility]) [I21.4] Reason for assessment: MD referral [...] day. 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 [...] handout fr (more content not included)... Normal [facility] CONSULT --- Attestation signed by Marko Smith MD at 10/02/2024 7:53 PM (Updated) I personally spoke with and examined Mr. Yung this morning with Dr. Montero. He has severe LV dysfunction the setting of angina at low levels of activity such as walking across his trailer. My diagnoses are acute systolic heart failure in the setting of a non-ST elevation PR. We discussed the expected risks and benefits [...] use disorder for 20 years, presenting from [facility] with chest pain Patient reports that he has been endorsing continued chest pain of 1 week duration, it become worse yesterday so he went to [facility]. Associated with diaphoresis, feels like a pressure, 5 out of 10, no radiation. Patient has a brother that with heart attack at the age of 42, mother at age of 47, at [facility] patient echo showed heart failure with reduced [...] Value Ventricular Rate 77 Atrial Rate 77 [place] Interval 186 QRS DURATION 102 QT Interval 422 QTC CALCULATION(BAZETT) 477 P Ganado 51 R-Ganado 34 T Wave Ganado 54 Impression Sinus rhythm with occasional Premature [...] failure with reduced ejection fraction, EF at [facility] 15 to 20% on 10/01/2024 Tobacco use [...] least in part, completed using a voice air conditioning manager system. Every effort was made to ensure accuracy. However, inadvertent computerized air conditioning manager errors may be present. Vic Montero PGY-2, internal medicine resident [facility] Normal [facility] HEMOGLOBIN A1Con 10-02-2024 Glucose [Mass/Vol] 148 mg/dL Normal [facility] Comment on above: Performed By: #### L [id number] #### [facility] ([facility]) [address] [place] [address] HbA1c (Bld) [Mass fraction] 6.8 % High 4.0-6.0 [facility] Comment on above: Performed By: #### L [id number] #### [facility] ([facility]) [address] [place] [address] HIGH SENSITIVITY TROPONIN Io n 10-02-2024 HS TROPONIN I (NG/L) 8 ng/L Normal <20 [facility] Comment on above: Performed By: #### L [id number] #### [facility] ([facility]ER) [address] [place] [address] HS TROPONIN I (NG/L) 10 ng/L Normal <20 [facility] Comment on above: Performed By: #### L [id number] #### [facility] ([facility]) [address] [place] [address] HS TROPONIN I (NG/L) 11 ng/L Normal <20 [facility] Comment on above: Performed By: #### L [id number] ####[facility] ([facility])[address] [place] [place] [facility] [place] [address] HS TROPONIN I (NG/L) 10 ng/L Normal <20 [facility] Comment on above: Performed By: #### L [id number] #### [facility] ([facility]) [address] [facility] [address] HPon 10-02-2024 HP H&P reviewed. The patient was examined and there are no changes to the H&P. Proceed with coronary angiogram for unstable angina Normal [facility] LIPID PANELon 10-02-2024 CHOL/HDL 10.0 mg/dL Normal [facility] Comment on above: Performed By: #### L [id number] #### [facility] ([facility]) [address] [facility] [place] [address] Cholesterol [Mass/Vol] 211 mg/dL High 120-200 [facility] Comment on above: Performed By: #### L [id number] #### [facility] ([facility]AKER) [address] [place] [address] Magnesium [Mass/Vol] 132 mg/dL Normal <150 [facility] Comment on above: Result Comment: TRIG LYCERIDE REFERENCE RANGE: 20 YEARS AND OLDER CARDIOVASCULAR RISK LESS THAN 150 mg/dL LOW RISK 150 TO 199 mg/dL BORDERLINE RISK 200 mg/dL AND GREATER HIGH RISK Performed By: #### L [id number] #### [facility] ([facility]ER) [address] [place] [address] Magnesium [Mass/Vol] 164 mg/dL High 0-160 [facility] Comment on above: Performed By: #### L [id number] #### [facility] ([facility]) [address] [place] [address] Magnesium [Mass/Vol] 21 mg/dL Low 23-92 [facility] Comment on above: Performed By: #### L [id number] #### [facility] ([facility]) [address] [place] [address] NON HDL CHOL. (LDL+VLDL) 190 Normal [facility] Comment on above: Performed By: #### L [id number] #### [facility] ([facility]) [address] [place] [address] TOTAL VLDL-C 26 mg/dL Normal 0-40 [facility] Comment on above: Performed By: #### L [id number] #### [facility] ([facility]) [address] [place] [address] PLATELET COUNTon 10-02-2024 PLATELETS (10*3/UL) IN BLOOD AUTOMATED COUNT 194 10*3/uL Normal 150-400 [facility] Comment on above: Performed By: #### L [id number] #### [facility] ([facility]) [address] [place] [address] PLATELETS (10*3/UL) IN BLOOD AUTOMATED COUNT 198 10*3/uL Normal 150-400 [facility] Comment on above: Performed By: #### L [id number] ####[facility] ([facility])[address] [place] [address] TSH3 REFLEX TO FT4on 025 THYROTROPIN (MIU/L) IN SER/PLAS BY DETECTION LIMIT <= 0.05 MIU/L 3.25 mIU/L Normal 0.34-5.60 [facility] Comment on above: Performed By: #### L [id number] ####[facility] ([facility])[address] [place] [address] COVID-19 Antigenon 1 COVID-19 Antigen Reason for [...] its performance Ed Disclaimer characteristic determined by [employer] and Ed Disclaimer validated at [facility]. This Ed Disclaimer test has not been [...] is terminated or revoked sooner. PERFORMED BY: [place] [address] PATHOLOGIST [employer] OPERATOR PATTI DE M.D. Normal [facility] Comment on above: Performed By: #### S NATALYA COVID-19 ED #### [facility] [address] [place] [address] Ed Ag Negativeon 01-26-20 21 Ed Ag Negative Negative Normal Negative [facility] Comment on above: Result Comment: This is a duplicate Ed SARS Antigen (SYED) result to be used for statistical tracking purpose only. PERFORMED BY: [place] [address] PATHOLOGIST [employer] OPERATOR PATTI DE M.D. Performed By: #### S NATALYA COVID-19 ED #### [facility] [address] [place] [address] Complete Blood Count Auto Di ffon 10-26-2020 Basophils (Bld) [#/Vol] 0.1 10*3/uL Normal 0.0-0.2 [facility] Comment on above: Order Comment: Reaso n for Exam Essential hypertension Result Comment: PERF ORMED BY: [place] [address] PATHOLOGIST [employer] OPERATOR PATTI DE M.D. Performed By: #### V [id number], CMP, CBC, LIPID #### [facility] [address] [place] [address] [place] Basophils/100 WBC (Bld) 1.0 % Normal . [facility] Comment on above: Order Comment: Reaso n for Exam Essential hypertension Performed By: #### V [id number], CMP, CBC, LIPID #### [facility] [address] [place] [address] [place] Eosinophils (Bld) [#/Vol] 0.4 10*3/uL Normal 0.0-0.45 [facility] Comment on above: Order Comment: Reaso n for Exam Essential hypertension Performed By: #### V [id number], CMP, CBC, LIPID #### [address] Eosinophils/100 WBC (Bld) 4.7 % Normal . [facility] Comment on above: Order Comment: Reaso n for Exam Essential hypertension Performed By: #### V [id number], CMP, CBC, LIPID #### [address] Erythrocyte distribution width (RBC) [Ratio] 14.0 % Normal 12.0-14.8 [facility] Comment on above: Order Comment: Reaso n for Exam Essential hypertension Performed By: #### V [id number], CMP, CBC, LIPID #### [facility] [address] [place] [address] Hematocrit (Bld) [Volume fraction] 47.4 % Normal 38.8-50.0 [facility] Comment on above: Order Comment: Reaso n for Exam Essential hypertension Performed By: #### V [id number], CMP, CBC, LIPID #### [facility] [address] [place] [address] [place] Hemoglobin (Bld) [Mass/Vol] 16.3 g/dL Normal 13.0-17.0 [facility] Comment on above: Order Comment: Reaso n for Exam Essential hypertension Performed By: #### V [id number], CMP, CBC, LIPID #### [facility] [address] [place] [address] Lymphocytes (Bld) [#/Vol] 2.3 10*3/uL Normal 1.00-4.8 [facility] Comment on above: Order Comment: Reaso n for Exam Essential hypertension Performed By: #### V [id number], CMP, CBC, LIPID #### [facility] [address] [place] [address] Lymphocytes/100 WBC (Bld) 26.7 % Normal . [facility] Comment on above: Order Comment: Reaso n for Exam Essential hypertension Performed By: #### V [id number], CMP, CBC, LIPID #### [facility] [address] [place] [address] MCH (RBC) [Entitic mass] 30.8 pg Normal 27.5-35.2 [facility] Comment on above: Order Comment: Reaso n for Exam Essential hypertension Performed By: #### V [id number], CMP, CBC, LIPID #### [facility] [address] [place] [address] MCV (RBC) [Entitic vol] 89.7 fL Normal 83.5-101 [facility] Comment on above: Order Comment: Reaso n for Exam Essential hypertension Performed By: #### V [id number], CMP, CBC, LIPID #### [facility] [address] [place] [address] Mean Corpuscular HGB Conc 34.4 g/dL Normal 32.5-35.6 [facility] Comment on above: Order Comment: Reaso n for Exam Essential hypertension Performed By: #### V [id number], CMP, CBC, LIPID #### [facility] [address] [place] [address] Monocytes (Bld) [#/Vol] 0.9 10*3/uL High 0.0-0.8 [facility] Comment on above: Order Comment: Reaso n for Exam Essential hypertension Performed By: #### V [id number], CMP, CBC, LIPID #### [facility] [address] [place] [address] [place] Monocytes/100 WBC (Bld) 10.4 % Normal . [facility] Comment on above: Order Comment: Reaso n for Exam Essential hypertension Performed By: #### V [id number], CMP, CBC, LIPID #### [facility] [address] [place] [address] [place] Neutrophils (Bld) [#/Vol] 5.0 10*3/uL Normal 1.8-7.7 [facility] Comment on above: Order Comment: Reaso n for Exam Essential hypertension Performed By: #### V [id number], CMP, CBC, LIPID #### [facility] [address] [place] [address] [place] Neutrophils/100 WBC (Bld) 57.2 % Normal . [facility] Comment on above: Order Comment: Reaso n for Exam Essential hypertension Performed By: #### V [id number], CMP, CBC, LIPID #### [facility] [address] [place] [address] [place] Nucleated RBC/100 WBC (Bld) [Ratio] 0.1 % Normal 0-0.5 [facility] Comment on above: Order Comment: Reaso n for Exam Essential hypertension Performed By: #### V [id number], CMP, CBC, LIPID #### [facility] [address] [place] [address] [place] Platelet mean volume (Bld) [Entitic vol] 11.0 fL High 6.6-10.1 [facility] Comment on above: Order Comment: Reaso n for Exam Essential hypertension Performed By: #### V [id number], CMP, CBC, LIPID #### [facility] [address] [place] [address] [place] Platelets (Bld) [#/Vol] 159 10*3/uL Normal 150-450 [facility] Comment on above: Order Comment: Reaso n for Exam Essential hypertension Performed By: #### V [id number], CMP, CBC, LIPID #### [facility] [address] [place] [address] [place] RBC (Bld) [#/Vol] 5.29 10*6/uL Normal 3.90-5.60 [facility] Comment on above: Order Comment: Reaso n for Exam Essential hypertension Performed By: #### V [id number], CMP, CBC, LIPID #### [facility] [address] [place] [id number] [facility] WBC (Bld) [#/Vol] 8.8 10*3/uL Normal 4.5-11.0 [facility] Comment on above: Order Comment: Reaso n for Exam Essential hypertension Performed By: #### V [id number], CMP, CBC, LIPID #### [facility] [address] Comprehensive Metabolic Pane davi 10-26-2020 Albumin [Mass/Vol] 3.9 g/dL Normal 3.2-5.5 [facility] Comment on above: Order Comment: PT FA STED 11 HRS Reason for Exam Essential hypertension Reason for Exam Essential hypertension;Vitamin D deficiency Performed By: #### V [id number], CMP, CBC, LIPID #### [facility] [address] Albumin/Globulin [Mass ratio] 1.6 {ratio} Normal [facility] Comment on above: Order Comment: PT FA STED 11 HRS Reason for Exam Essential hypertension Reason for Exam Essential hypertension;Vitamin D deficiency Performed By: #### V [id number], CMP, CBC, LIPID #### [facility] [address] [place] [id number] [facility] ALP [Catalytic activity/Vol] 75 U/L Normal 32-92 [facility] Comment on above: Order Comment: PT FA STED 11 HRS Reason for Exam Essential hypertension Reason for Exam Essential hypertension;Vitamin D deficiency Performed By: #### V [id number], CMP, CBC, LIPID #### [facility] [address] [place] [id number] [facility] ALT [Catalytic activity/Vol] 40 U/L Normal 10-60 [facility] Comment on above: Order Comment: PT FA STED 11 HRS Reason for Exam Essential hypertension Reason for Exam Essential hypertension;Vitamin D deficiency Performed By: #### V [id number], CMP, CBC, LIPID #### [facility] [address] [place] [id number] [place] AST [Catalytic activity/Vol] 23 U/L Normal 10-42 [facility] Comment on above: Order Comment: PT FA STED 11 HRS Reason for Exam Essential hypertension Reason for Exam Essential hypertension;Vitamin D deficiency Performed By: #### V [id number], CMP, CBC, LIPID #### [facility] [address] [place] [address] [place] Bilirubin [Mass/Vol] 0.5 mg/dL Normal 0.3-1.2 [facility] Comment on above: Order Comment: PT FA STED 11 HRS Reason for Exam Essential hypertension Reason for Exam Essential hypertension;Vitamin D deficiency Performed By: #### V [id number], CMP, CBC, LIPID #### [facility] [address] [place] [id number] [facility] Calcium [Mass/Vol] 9.3 mg/dL Normal 8.2-10.2 [facility] Comment on above: Order Comment: PT FA STED 11 HRS Reason for Exam Essential hypertension Reason for Exam Essential hypertension;Vitamin D deficiency Performed By: #### V [id number], CMP, CBC, LIPID #### [facility] [address] [place] [address] [place] Chloride [Moles/Vol] 102 mmol/L Normal 95-114 [facility] Comment on above: Order Comment: PT FA STED 11 HRS Reason for Exam Essential hypertension Reason for Exam Essential hypertension;Vitamin D deficiency Performed By: #### V [id number], CMP, CBC, LIPID #### [facility] [address] [place] [id number] [place] CO2 [Moles/Vol] 27.8 mmol/L Normal 22.0-30.0 [facility] Comment on above: Order Comment: PT FA STED 11 HRS Reason for Exam Essential hypertension Reason for Exam Essential hypertension;Vitamin D deficiency Performed By: #### V [id number], CMP, CBC, LIPID #### [facility] [address] [place] [id number] [place] Creatinine [Mass/Vol] 1.17 mg/dL Normal 0.64-1.27 [facility] Comment on above: Order Comment: PT FA STED 11 HRS Reason for Exam Essential hypertension Reason for Exam Essential hypertension;Vitamin D deficiency Performed By: #### V [id number], CMP, CBC, LIPID #### [facility] [address] [place] [id number] [place] Estimated GFR ( Henny > 60 Normal [facility] Comment on above: Order Comment: PT FA STED 11 HRS Reason for Exam Essential hypertension Reason for Exam Essential hypertension;Vitamin D deficiency Result Comment: GFR estimated reference range: According to KDOQI guidelines, <60 ml/min/1.73m2 is sufficient to diagnose a patient with chronic kidney disease. Performed By: #### V [id number], CMP, CBC, LIPID #### [facility] [address] Estimated GFR (Non- Am > 60 Normal [facility] Comment on above: Order Comment: PT FA STED 11 HRS Reason for Exam Essential hypertension Reason for Exam Essential hypertension;Vitamin D deficiency Performed By: #### V [id number], CMP, CBC, LIPID #### [facility] [address] Globulin (S) [Mass/Vol] 2.5 g/dL Normal [facility] Comment on above: Order Comment: PT FA STED 11 HRS Reason for Exam Essential hypertension Reason for Exam Essential hypertension;Vitamin D deficiency Performed By: #### V [id number], CMP, CBC, LIPID #### [facility] [address] [place] [id number] [facility] Glucose [Mass/Vol] 114 mg/dL High 70-100 [facility] Comment on above: Order Comment: PT FA STED 11 HRS Reason for Exam Essential hypertension Reason for Exam Essential hypertension;Vitamin D deficiency Result Comment: [place] Glucose Reference Range is dependent on time and content of last meal. Glucose of more than 200 mg/dL in a nonstressed, ambulatory subject supports the diagnosis of Diabetes Mellitus. ADA recommended reference range Performed By: #### V [id number], CMP, CBC, LIPID #### [facility] [address] Potassium [Moles/Vol] 3.8 mmol/L Normal 3.5-5.1 [facility] Comment on above: Order Comment: PT FA STED 11 HRS Reason for Exam Essential hypertension Reason for Exam Essential hypertension;Vitamin D deficiency Performed By: #### V [id number], CMP, CBC, LIPID #### [facility] [address] [place] [id number] [facility] Protein [Mass/Vol] 6.4 g/dL Normal 6.1-7.9 [facility] Comment on above: Order Comment: PT FA STED 11 HRS Reason for Exam Essential hypertension Reason for Exam Essential hypertension;Vitamin D deficiency Performed By: #### V [id number], CMP, CBC, LIPID #### [facility] [address] Sodium [Moles/Vol] 137 mmol/L Normal 136-146 [facility] Comment on above: Order Comment: PT FA STED 11 HRS Reason for Exam Essential hypertension Reason for Exam Essential hypertension;Vitamin D deficiency Performed By: #### V [id number], CMP, CBC, LIPID #### [facility] [address] [place] [address] Urea nitrogen [Mass/Vol] 15 mg/dL Normal 9-23 [facility] Comment on above: Order Comment: PT FA STED 11 HRS Reason for Exam Essential hypertension Reason for Exam Essential hypertension;Vitamin D deficiency Performed By: #### V [id number], CMP, CBC, LIPID #### [facility] [address] [place] [address] Lipid Panelon 10-26-2020 Cholesterol [Mass/Vol] 205 mg/dL High 140-200 [facility] Comment on above: Order Comment: PT FA STED 11 HRS Reason for Exam Essential hypertension Reason for Exam Essential hypertension;Vitamin D deficiency Result Comment: Chol less than 200 mg/dl low risk Chol 201-239 mg/dl borderline risk Chol 240 mg/dl and greater high risk Performed By: #### V [id number], CMP, CBC, LIPID #### [facility] [address] [place] [address] Cholesterol in HDL [Mass/Vol] 24 mg/dL Low 29-71 [facility] Comment on above: Order Comment: PT FA STED 11 HRS Reason for Exam Essential hypertension Reason for Exam Essential hypertension;Vitamin D deficiency Result Comment: HDL CHOL ATP-III CLASSIFICATION Cardiovascular Risk HDL > or equal to 60 mg/dL LOW HDL < 40 mg/dL HIGH Performed By: #### V [id number], CMP, CBC, LIPID #### [facility] [address] Cholesterol.total/Ch olesterol in HDL [Mass ratio] 8.5 {ratio} Normal <5.0 [facility] Comment on above: Order Comment: PT FA STED 11 HRS Reason for Exam Essential hypertension Reason for Exam Essential hypertension;Vitamin D deficiency Performed By: #### V [id number], CMP, CBC, LIPID #### [facility] [address] LDL Cholesterol,Calculat ed 131 mg/dL High 0-100 [facility] Comment on above: Order Comment: PT FA STED 11 HRS Reason for Exam Essential hypertension Reason for Exam Essential hypertension;Vitamin D deficiency Result Comment: LDL ATP III CLASSIFICATION LDL less than 100 mg/dL Optimal LDL 100-129 mg/dL Near or above optimal LDL 130-159 mg/dL Borderline high LDL 160-189 mg/dL High LDL greater than 189 mg/dL Very high Performed By: #### V [id number], CMP, CBC, LIPID #### [facility] [address] Triglyceride w/Reflex 248 mg/dL High 35-149 [facility] Comment on above: Order Comment: [...] (CDC) test method. Performed By: #### V [id number], CMP, CBC, LIPID #### [facility] [address] VLDL CHOLESTEROL 49 mg/dL Normal [facility] Comment on above: Order Comment: PT FA STED 11 HRS Reason for Exam Essential hypertension Reason for Exam Essential hypertension;Vitamin D deficiency Performed By: #### V [id number], CMP, CBC, LIPID #### [facility] [address] [place] [address] [facility] Vitamin D 25 Hydroxy Totalon 10-26-2020 Vitamin D 25 Hydroxy Total 50.8 ng/mL Normal 30-100 [facility] Comment on above: Order Comment: [...] practice guideline. JCEM. 2010; 96(7):1911-30. PERFORMED BY: [place] [id number] PATHOLOGIST [employer] OPERATOR PATTI DE M.D. Performed By: #### V [id number], CMP, CBC, LIPID #### [place] [id number] [facility] Encounters Encounter Date Encounter Type Care Provider Facility Start: 12-02-2024 ambulatory TACO SPENCE [facility] Start: 11-20-2024 ambulatory [facility] Start: 11-20-2024 End: 11-20-2024 ambulatory [facility] Start: 10-17-[address] [facility] Start: 10-17-2024 Encounter for other preprocedural examination [facility] Start: 10-11-2024 End: 10-11-[facility]24 [facility] Start: 10-04-2024 End: 10-04-2024 ambulatory ERIN HESS [facility] Start: 10-04-2024 Evaluation and manag ement of inpatient NIDA Thomson [facility] Start: 10-04-2024 Evaluation and manag ement of inpatient [facility] Start: 10-03-2024 Evaluation and manag ement of inpatient NIDA Thomson LAKOWSKI [facility] Start: 10-02-2024 End: 10-04-2024 Evaluation and management of inpatient MERRILL HERNÁNDEZ [facility] Payers Date Payer Category Payer Unknown [id number] Clinical Notes 10-02-2024 to 12-02-2024 Note Date & Type Note Facility 12-02-2024 Note CARDIOLOGY PHARMACIS T VISIT - HEART FAILURE TELEPHONE (AUDIO ONLY) CONSULT Referring Provider: Dr. Keene/ Dr. Waldron Clinic Location: [facility] Most recent cardiology visit: 10/11/24 Insurance: [...] congestion) (furosemide 40mg) [] Hydralazine/Isosorbide (persistently symptomatic -Malian patients despite GDMT, NYHA class III-IV) Adherence: [...] and PharmD: Yes Taco Spence PharmD, BCACP [facility] 12/10/24 [1] Patient Active Problem List Diagnosis NSTEMI (non-ST elevated myocardial infarction) ([facility]) Primary hypertension HFrEF (heart failure with reduced ejection fraction) ([facility]) Obesity Tobacco use disorder Multi-vessel coronary artery stenosis Hyperlipidemia Coronary artery disease involving mcgrath coronary artery of mcgrath heart with unstable angina pectoris ([facility]) S/P coronary artery stent placement [facility] 11-20-2024 Note Spoke with patient a nd scheduled for visit on 12/02 at 2pm. Patient does live in [place] and is seen at the [facility], so will need to do telemedicine with him. Taco Spence PharmD, BCACP [facility] 11/25/24 [facility] 11-20-2024 Note PHARMD CARDIOLOGY CO NSULT - NEW CONSULT 11/20/24 Referring Provider: Dr. Keene Clinic: [facility] Cardiology-- saw outpatient cardiology at Cardiology Magaly Yung is referred to clinic pharmacists for GLP initiation and lipid management (hx of CAD, HTN, HLD, HFrEF, obesity, LDL goal < 55). Electronic order received from patient's cardiology provider. Will call patient to schedule. Celine Levy, Mahendra [facility] 11-20-2024 Note Cardiology I placed referral order to [place] cardiology pharmacist to help with lipid management [...] in outpatient follow up Mikael Keene MD tariff counsel [facility] Pager: [phone] Diagnosis Plan 1. HFrEF (heart failure with reduced ejection fraction) ([facility]) Ambulatory referral to Cardiology Pharmacist 2. Multi-vessel coronary artery stenosis Ambulatory referral to Cardiology Pharmacist 3. Coronary artery disease involving mcgrath coronary artery of mcgrath heart with unstable angina pectoris ([facility]) Ambulatory referral to Cardiology Pharmacist 4. Primary hypertension Ambulatory referral to Cardiology Pharmacist 5. Tobacco use disorder Ambulatory referral to Cardiology Pharmacist 6. Class 2 severe obesity due to excess calories with serious comorbidity and body mass index (BMI) of 39.0 to 39.9 in adult ([facility]) Ambulatory referral to Cardiology Pharmacist 7. Mixed hyperlipidemia Ambulatory referral to Cardiology Pharmacist 8. S/P coronary artery stent placement Ambulatory referral to Cardiology Pharmacist [facility] 11-20-2024 Note Patient: Magaly prakash Procedure Information Date/Time: 11/20/24 1030 Procedures: Coronary angiography - PC Approved 10/30-11/28 Percutaneous coronary intervention Location: [facility] / [facility] (Cath) Providers: Mikael [...] Plan discussed with attending. Additional Equipment Requests [facility] 10-28-2024 Note Cardiology I had heart team discussion with Dr. Valle from CT surgery. We personally reviewed the coronary angiogram together. Patient has ostial LAD 80% stenosis. His distal and apical LAD also have significant disease and Dr. Valle was concerned that it is a poor target for ROWLEL to LAD bypass grafting. He has mid RCA intermediate stenosis and he has circumflex mild to moderate stenosis We elected to proceed with PCI LAD with possible PCI RCA as well I will order coronary angiogram and PCI LAD Right radial access: Patient is optimized on medical therapy for CAD and HFrEF Labs reviewed Diagnosis Plan 1. Primary hypertension Case Request Resident Programs Assistant: Coronary angiography, Percutaneous coronary intervention 2. Multi-vessel coronary artery stenosis Case Request Resident Programs Assistant: Coronary angiography, Percutaneous coronary intervention 3. HFrEF (heart failure with reduced ejection fraction) ([facility]) Case Request Resident Programs Assistant: Coronary angiography, Percutaneous coronary intervention 4. 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 Tobacco use disorder Case Request Resident Programs Assistant: Coronary angiography, Percutaneous coronary intervention 6. Mixed hyperlipidemia Case Request Resident Programs Assistant: Coronary angiography, Percutaneous coronary intervention 7. Class 2 severe obesity due to excess calories with serious comorbidity and body mass index (BMI) of 39.0 to 39.9 in adult ([facility]) Case Request Resident Programs Assistant: Coronary angiography, Percutaneous coronary intervention 8. Coronary artery disease involving mcgrath coronary artery of mcgrath heart with unstable angina pectoris ([facility]) Case Request Resident Programs Assistant: Coronary angiography, Percutaneous coronary intervention Lab on [...] Bilirubin, Urine 10/17/2024 Negative Negative Final Specific [place], Urine 10/17/2024 1.015 1.010 - 1.030 Final [...] eGFR 10/17/2024 65.8 >60.0 mL/min/1.73m*2 Final The [facility]???s estimated glomerular filtration rate (eGFR) will [...] RANGE. CHEST 1995;108:[id number] (more content not included)... [facility] 10-11-2024 Note [facility] Note Reason for cardiology visit: Follow-up on coronary artery disease, ischemic cardiomyopathy and chronic heart failure, hypertension, and hyperlipidemia HPI: Magaly Yung is a 49 y.o. male who presented 09/30/2024 to [facility] with chest pain of 3 days duration associated with worsening shortness of breath, he was severely hypertensive on arrival and BNP was elevated. His echo showed ejection fraction of 15 to 20%. He was sent to [facility] for cardiac catheterization performed 10/02/2024 and showed [...] infarction (CMS/HCC), NSTEMI (non-ST elevated myocardial infarction) (CMS/[facility]), Obesity, and Pulmonary edema. Surgical History [...] 211 (H) 10/03/19 (more content not included)... [facility] 10-04-2024 Note Hospital Medicine Discharge Summary Final Discharge Diagnosis: Severe multivessel coronary artery disease Acute decompensated systolic heart failure with reduced ejection fraction, NYHA class II Tobacco use disorder Essential hypertension Mixed hyperlipidemia Class II obesity Admission Diagnosis: NSTEMI (non-ST elevated myocardial infarction) (CMS/[facility]) [I21.4] Hospital course: Magaly Yung is an 49 y.o. ld white male admitted from [facility] as a direct transfer where he presented with intermittent chest pains described as anterior chest dull to pressure-like associated with dyspnea radiating to left pain started a week back pain unrelated to activity but 4 days back got worse so he decided to go to the ER where he was admitted to [facility]. Patient denies any history of hypertension coronary [...] to tobacco use his BNP done at [facility] was 448 BUN was 15.9 creatinine 1.13 [...] Center 10/11/2024 2:40 PM Essence Waldron MD [facility] Your medication list START taking these [...] Medications These medications were sent to [facility] - [address] [place] [address] [facility] [place] [address], [facility] [address] aspirin 81 mg chewable tablet atorvastatin 40 [...] 0418 10/02/24 1953 (more content not included)... [facility] 10-04-2024 Note Stop bang score of 3 , Sleep referral ordered for OP [facility] 10-04-2024 Note Cardiothoracic Surge ry Progress Note 10/04/2024 Room: [address] [place] [address] Bobo Yung is a 49 y.o. male with PMH of smoker, obesity, strong family history of CAD who presented to [facility] as a direct transfer where he was experiencing intermittent chest pain, described as anterior chest dull to pressure-like associated with dyspnea radiating to left. [facility] labs remarkable for BNP 448, BUN 15.9, [...] is somewhat limited. He was transferred to [facility] for cardiac catherization. Underwent cardiac cath yesterday [...] is seen f (more content not included)... [facility] 10-04-2024 Note [facility]PAT IENT [...] no medications at all. 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 10/02/2024 he was transferred from [facility] for non-STEMI with angina and acute heart failure with preserved EF. Complaining of intermittent dull to pressure-like anterior chest discomfort associated with dyspnea radiating to left arm. Over the past 2 months patient had noticed gradually worsening BERNAL and the dull midsternal prssure to left arm then gradually worsening LE edema. At [facility] labs remarkable for BNP 448, BUN 15.9, Creatinine 1.13, High Sensitivity Troponin 25.9, later normalized. Echocardiogram found EF 15-20% with grade 3 LVDD, moderate concentric LVH and global hypokinesis. EKG with sinus rhythm and nonspecific ST-T wave changes. At [facility], repeat echocardiogramfound [facility] found severe multivessel CAD and [...] LDL 190 10/02/2024 No results found for: [id number] , IRON , TIBC , C3 , C4 , TALA , CANCA , ASO , PSA , CEA , CA125 , CA1 (more content not included)... [facility] 10-03-2024 Note Continue lisinopril. [facility] 10-03-2024 Note S/p cardiac cath 10/02 [facility] 10-03-2024 Note Patient has a smokin g history of more than 20 pack years a day. [facility] 10-03-2024 Note NYHA class II Continue continue IV Lasix Continue lisinopril, Coreg, Aldactone, Farxiga [facility] 10-03-2024 Note Class II obesity [facility] 10-03-2024 Note Cardiac catheterizat ion 10/02 showed multivessel disease, LVEDP 30 CT surgery consulted for CABG evaluation [facility] 10-03-2024 Note Hospital Medicine Daily Progress Note - 10/03/2024 1:24 PM; Room: [address] [place] [address] Admission: 10/02/2024 1:50 AM; Length of stay: 1 days THE HOSPITALIST TEAM PREFERS TO USE [employer] FOR NON-URGENT COMMUNICATION 7AM-7PM. IF I DO NOT RESPOND WITHIN 20 MINUTES OR URGENT MATTERS, PLEASE CALL THROUGH THE STEEL FIXER. FROM 7PM-7AM, PLEASE PAGE [phone](COVR). 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) S/p cardiac cath 10/02 Primary hypertension Continue lisinopril. HFrEF (heart failure with reduced ejection fraction) ([facility]) NYHA class II Continue continue IV [...] LDL 190 10/02/2024 No results found for: [id number] , IRON , TIBC , C3 , C4 , TALA , CANCA , ASO , PSA , CEA , CA125 , CA199 , AFP , CA153 Imaging Pulmonary function testing Consuelo Fernandes, WIND TURBINE MACHINIST 10/03/2024 12:49 PM Bedside Spirometry uploaded into [employer]. Vascular US lower extremity vein mapping bilateral [...] were evaluated bilaterall (more content not included)... [facility] 10-03-2024 Note Bedside Spirometry u ploaded into Sales Representative Education Courses. 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 ---- Cardiology Progress Note HPI: Magaly Yung is a 49 y.o. male with insignificant medical history, other than tobacco use disorder for 20 years, presenting from [facility] with chest pain Patient reports that he has been endorsing continued chest pain of 1 week duration, it become worse yesterday so he went to [facility]. Associated with diaphoresis, feels like a pressure, 5 out of 10, no radiation. Patient has a brother that with heart attack at the age of 42, mother at age of 47, at [facility] patient echo showed heart failure with reduced [...] deficit present. Mental (more content not included)... [facility] 10-02-2024 Note Patient admitted to the hospital for: NSTEMI. Chart echo noted in the admit progress notes, from 09/30/2024 [facility] reports: EF 15-20 %. Current echo report qualifies for Cardiac Rehab services per CMS eligibility criteria. A Cardiac Rehab referral diagnosis and code must also meet CMS criteria. Desiree Tyler, RN, BSN Cardiology Outpatient Coordinator Cardiopulmonary Rehab [facility] 10-02-2024 Note Patient: Magaly Yung Procedure Information Date/Time: 10/02/24 1530 Procedures: Coronary angiography Right heart cath Location: [facility] [place] [facility] (Cath) Providers: Mikael [...] consented to blood products. Additional Equipment Requests [facility] 10-02-2024 Note 10/02/24 1201 Admission Assessment [...] Status Interested Does the patient have a complex case manager assigned to them through their insurance? [...] activate MyChart? No Write sent email to [facility] registration about missing insurance in Epic. [facility] 10-02-2024 Note Cycle troponin nitra tha [...] EF and NSTEMI anticipate left heart cath [facility] 10-02-2024 Note We will check trigly cerides/lipid profile if triglycerides below 300 consider GLP-1 inhibitor discussed with patient about diet management dietary consult already in order for CHF and for obesity [facility] 10-02-2024 Note Optimize guideline d irected medical therapy including Coreg lisinopril Aldactone and Farxiga consider changing DAVEY inhibitor to ARNI monitor I's and O's salt restricted diet core CHF measures in place [facility] 10-02-2024 Note As above also would recommend outpatient sleep study [facility] 10-02-2024 Note Hospital Medicine History and Physical 10/02/2024 2:45 AM THE HOSPITALIST TEAM PREFERS TO USE [employer] CHAT FOR NON-URGENT COMMUNICATION 7AM-7PM. IF I DO NOT RESPOND WITHIN 20 MINUTES OR URGENT MATTERS, PLEASE CALL THROUGH THE STEEL FIXER. FROM 7PM-7AM, PLEASE PAGE [phone](COVR). Chief Complaint No chief complaint on file. History of Present Illness Magaly Yung is an 49 y.o. ld white male admitted from [facility] as a direct transfer where he presented with intermittent chest pains described as anterior chest dull to pressure-like associated with dyspnea radiating to left pain started a week back pain unrelated to activity but 4 days back got worse so he decided to go to the ER where he was admitted to [facility]. Patient denies any history of hypertension coronary [...] to tobacco use his BNP done at [facility] was 448 BUN was 15.9 creatinine 1.13 [...] HFrEF (heart failure with reduced ejection fraction) ([facility]) Optimize guideline directed medical therapy including [...] care setting f (more content not included)... [facility] Summary Purpose Family History No Family History Records FoundNo Family History Records Found Advance Directives No Advanced Directives Records FoundNo Advanced Directives Records Found Additional Source Comments (unrecognized sect ion and content) No Status Records FoundNo Status Records Found INFORMATION SOURCE (unrecogn ized section and content) DATE CREATED AUTHOR 07/19/2021 [facility] DATE CREATED AUTHOR AUTHOR'S ORGANIZ ATION 12/12/2024 [facility] FOR RECORDS PERTAINING TO PATIENTS WHO ARE [...] BE BASED ON THE PRIMARY CLINICAL RECORDS. [employer] provides no warranty or guarantee of the accuracy or completeness of information in this document.
--- NOTE | 2024-12-19 08:00 | CA_ITS ---
Patient Name: MAGALY CARSON MR#: [id number] : 1975 Exam Date: 12/19/2024 Ordering Doctor: DR. ESSENCE SRIVASTAVA M.D. ECHOCARDIOGRAM REPORT PROCEDURE: CA ECHO DOPPLER COMPLETE INDICATIONS: Acute on chronic systolic heart failure, MS, cardiac stent COMPARISON: None. DESCRIPTION: COMPLETE ECHOCARDIOGRAM Real-time transthoracic echocardiography with 2D, M-mode, spectral and color flow Doppler performed. QUALITY: Technical quality was good. LEFT VENTRICLE: Normal chamber size. Moderate concentric left ventricular hypertrophy. D-shaped septum consistent with right ventricular pressure and/or volume overload. No obvious wall motion abnormalities. LV EF: Global left ventricular systolic function is normal; visually estimated ejection fraction is 55%. DIASTOLIC: Normal diastolic function. ATRIAL SEPTUM: Visually appears intact. LEFT ATRIUM: Normal chamber size. RIGHT ATRIUM: Normal chamber size. RIGHT VENTRICLE: Normal chamber size. Normal systolic function. TRICUSPID VALVE: Normal mobility and thickness. No stenosis with no regurgitation. Unable to assess right-sided pressures due to lack of measurable tricuspid regurgitation. MITRAL VALVE: Normal mobility and thickness. No evidence of mitral valve stenosis. There is no mitral annular calcification. No mitral regurgitation. AORTIC VALVE: Normal trileaflet appearance. No visible sclerosis. Normal leaflet mobility. No evidence of aortic valve stenosis. No aortic regurgitation. AORTIC ROOT: Normal diameter and appearance. Ascending aorta is normal in size. PULMONIC VALVE: Normal thickness and mobility. No stenosis. No regurgitation. PERICARDIUM: Trivial pericardial effusion. IVC: Collapses with inspiration. CONCLUSION: 1. Global left ventricular systolic function is normal; visually estimated ejection fraction is 55% 2. D-shaped septum consistent with right ventricular pressure and/or volume overload 3. Normal right ventricular size and systolic function 4. Normal diastolic function 5. No significant valvular abnormalities 6. Trivial pericardial effusion Adult Echocardiography Procedure Report Left Ventricle LVEDD (3.7 - 5.6 cm): 5.24 cm LVESD (2.2 - 4.0 cm): 3.57 cm LVIVS thickness (0.6 - 1.2 cm): 1.36 cm LVPW thickness (0.5 - 1.0 cm): 1.20 cm e': 0.13 m/s E - e': 6.69 LVOT Max Gradient: 3.19 mm[Hg] LVOT Area (cm2): 0.89 m/s Peak Velocity (LVOT): 0.89 m/s LVOT Diameter 2.58 cm Left Atrium LA Volume Index (2D A2C): 25.53 ml/m2 Left Atrium Systolic Dimension: 3.64 cm Mitral Valve MV E to A Ratio: 1.01 Mitral Valve A-Wave Peak Velocity: 0.86 m/s Mitral Valve E-Wave Peak Velocity: 0.87 m/s Right Ventricle Aorta AO Root Diam: 3.74 cm Ascending Ao Diam: 3.18 cm Aortic Valve AoV Area (Peak Vlad): 3.15 cm2, 3.15 cm2 Peak Velocity(Antegrade Flow): 1.48 m/s Peak Gradient(Antegrade Flow): 8.71 mm[Hg] Tricuspid Valve Pulmonic Valve Peak Velocity: 1.50 m/s Peak Gradient: 8.95 mm[Hg] Right Atrium Right Atrium Systolic Pressure: 59.56 ml, 59.56 ml Dictated by: Florecita Ashraf M.D. on 12/19/2024 at 16:45 Approved by: Florecita Ashraf M.D. on 12/19/2024 at 16:49
== END 2024-12-19 07:21 | disposition home or self-care (01) ==
LOC: CARD 07:20
PROVIDERS: PCP Family Medicine; Visit Provider Internal Medicine Cardiovascular Disease
DX: I50.23 Acute on chronic systolic (congestive) heart failure (principal); E78.5 Hyperlipidemia, unspecified; I25.2 Old myocardial infarction; Z95.5 Presence of coronary angioplasty implant and graft
CPT/HCPCS: 36415; 80053; 80061; 82172; 93306; 93356

== ENCOUNTER 2024-12-25 10:13 | Outpatient (OUT) | payer BC, SELFPAY ==
[2024-12-25 10:50] LABS: Anion Gap 14.6; Blood Urea Nitrogen 28.0 mg/dL (7.0-18.0); Calcium 9.8 mg/dL (8.5-10.1); Carbon Dioxide 27.3 mmol/L (21.0-32.0); Chloride 101 mmol/L (98-107); Estimated GFR (African America 52 (>=60 mL/min/1.73m^2); Estimated GFR (Non-African Ame 43 (>=60 mL/min/1.73m^2); Glucose 370 mg/dL (74-106); Potassium 3.9 mmol/L (3.5-5.1); Sodium 139 mmol/L (136-145)
== END 2024-12-25 10:14 | disposition home or self-care (01) ==
LOC: LAB 10:14
PROVIDERS: PCP Family Medicine; Visit Provider Family Medicine
DX: N28.9 Disorder of kidney and ureter, unspecified (principal)
CPT/HCPCS: 36415; 80048

== ENCOUNTER 2025-03-29 06:28 | Outpatient (OUT) | payer BC, SELFPAY ==
--- OUTSIDE RECORDS SUMMARY | 2025-03-29 06:34 | XMS_ITS | CCD ---
Author Organization [facility] [place] [facility] Care Team Providers Care Typing Office Worker Name Role Phone NIDA LANDA Referring Unavailabl e NIDA LANDA Referring Unavailabl e YU, DANA Referring Unavailable YU, DANA Referring Unavailable NIDA LANDA Referring Unavailabl e KEENE, MIKAEL Referring Unavailable KEENE, MIKAEL Referring Unavailable KEENE, MIKAEL Admitting Unavailable KEENE, MIKAEL Attending Unavailable MERRILL HERNÁNDEZ Referring Unavailable YU, DANA Attending Unavailable HORANI, HERNAN Admitting Unavailable ESSENCE WALDRON Attending Unavailable DONALDTACO RYAN Attending Unavailable DONALDTACO RYAN Attending Unavailable ESSENCE WALDRON Attending Unavailable ERIN HESS Referring Unavailable NIDA LANDA Referring Unavailabl e SANAULLRAO ROMERO Referring Unavailable Allergies Allergy Classification Reported Allergen(s) Allergy Type Date of Onset Reaction(s) Facility (1 source) Penicillins; Translations: [PENICILLINS] Propensity to adverse reactions to drug (disorder) [facility] Repository Problems Active Problems Problem Classification Problem Date Documented Date Episodic/Chronic Acute myocardial infarction (2 sources) Non-ST elevation (NSTEMI) myocardial infarction; Translations: [Non-ST elevation (NSTEMI) myocardial infarction] Onset: 10-03-2024 Chronic Congestive heart failure; nonhypertensive (4 sources) Unspecified systolic (congestive) heart failure; Translations: [Congestive heart failure] Onset: 10-11-2024 Chronic Coronary atherosclerosis and other heart disease (8 sources) Atherosclerotic heart disease of [place] coronary artery with unstable angina pectoris; Translations: [Atherosclerotic heart disease of [place] coronary artery without angina pectoris] Onset: 10-03-2024 Chronic Coronary atherosclerosis and other heart disease (2 sources) Presence of coronary angioplasty implant and graft; Translations: [Presence of coronary angioplasty implant and graft] Onset: 11-20-2024 Episodic Disorders of lipid metabolism (4 sources) Mixed hyperlipidemia; Translations: [Hyperlipidemia] Onset: 10-11-2024 Chronic Essential hypertension (4 sources) Essential (primary) hypertension; Translations: [Hypertensive disorder] Onset: 10-11-2024 Chronic Other nutritional; endocrine; and metabolic disorders (2 sources) Morbid (severe) obesity due to excess calories; Translations: [Morbid (severe) obesity due to excess calories] Onset: 10-28-2024 Chronic Other nutritional; endocrine; and metabolic disorders (2 sources) Body mass index (BMI) 39.0-39.9, adult; Translations: [Body mass index (BMI) 39.0-39.9, adult] Onset: 10-28-2024 Chronic Residual codes; unclassified (2 sources) Hypersomnia, unspecified; Translations: [Hypersomnia, unspecified] Onset: 10-02-2024 Chronic Substance-related disorders (2 sources) Nicotine dependence, unspecified, uncomplicated; Translations: [Nicotine dependence, unspecified, uncomplicated] Onset: 10-28-2024 Chronic Unclassified (1 source) Obesity, class 2; Translations: [Obesity, class 2] Onset: 10-28-2024 Past or Other Problems Problem Classification Problem Date Documented Da te Episodic/Chronic Malaise and fatigue (2 sources) Fatigue; Translations: [Fatigue] Onset: 10-11-2024 Episodic Other screening for suspected conditions (not mental disorders or infectious disease) (2 sources) Abnormal findings on diagnostic imaging of heart and coronary circulation; Translations: [Abnormal findings on diagnostic imaging of heart and coronary circulation] Onset: 10-04-2024 Episodic Unclassified (1 source) Obesity, class 2; Translations: [Obesity, class 2] Onset: 11-20-2024 Results Test Name Value Interpretation Reference Range Facility Orders Onlyon 01-09-2025 Orders Only [id number] Magaly Yung 1975 M Date Provider Department Center [place] 01/09/2025 [id number], HISTORICAL [place]VC[place]ICOAG [place] [facility] Family History Problem Relation Age of Onset Coronary artery disease Mother 45 Coronary artery disease Brother 42 Family Status - Relation Status Age at Mother Father Alive Brother [facility] Telemedicineon 01-03-2025 Telemedicine [id number] Magaly Yung 1975 M Date Provider Department Center 01/03/2025 1052-TACO SPENCECANTICOAG [place] [facility] Family History Problem Relation Age of Onset Coronary artery disease Mother 45 Coronary artery disease Brother 42 Family Status - Relation Status Age at Mother Father Alive Brother Level of Service:NOCHG DE 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 Keene. Hypertension [149113] Hyperlipidemia [182] - Had lipid panel last week. Congestive Heart Failure [127] - Had echo last week. Post-Cath [731] - With stent placement [facility] 36on 12-25-2024 36 Regarding echo resul t from 12/19/2024: MD Nadya Hou MA His ejection fraction is back to normal.. But I need to see him in follow-up as soon as possible, try this Monday. This patient did not follow-up with anybody even though that he had angioplasty. I see that he has an appointment with Jose at the end of the month please cancel this appointment and let him come to see me this MondayAnd I we will release him to go back to work at that time Francheska spoke with patient and scheduled him to see Dr. Waldron on 12/27/2024 per her request. [facility] Orders Onlyon 12-23-2024 Orders Only [id number] Magaly Yung 1975 M Date Provider Department Center 12/23/2024 [id number], HISTORICAL [place]AG [place] [facility] Family History Problem Relation Age of Onset Coronary artery disease Mother 45 Coronary artery disease Brother 42 Family Status - Relation Status Age at Mother Father Alive Brother Normal 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 Results Follow-Upon 12-02-19 Results Follow-Up [id number] Magaly Yung 1975 M Date Provider Department Center 12/01/2024 [id number] WALDRON [facility] Family History Problem Relation Age of Onset Coronary artery disease Mother 45 Coronary artery disease Brother 42 Family Status - Relation Status Age at Mother Father Alive Brother Normal [facility] 29on 11-20-2024 29 Addended by: MIKAEL KEENE on: 11/20/2024 02:08 PM Modules accepted: Orders Normal [facility] Documentationon 11-20-2024 Documentation [id number] Magaly Yung 1975 M Date Provider Department Center 11/20/2024 289-MIKAEL KEENE [facility]ARD [place] [facility] Family History Problem Relation Age of Onset Coronary artery disease Mother 45 Coronary artery disease Brother 42 Family Status - Relation Status Age at Mother Father Alive Brother Reason for Visit and Comments: Coronary Artery Disease [187] Normal [facility] Documentation [id number] Magaly Yung 1975 M Date Provider Department Center 11/20/2024 [id number], KARA [facility]VC[facility]ICOAG [facility] Family History Problem Relation Age of Onset Coronary artery disease Mother 45 Coronary artery disease Brother 42 Family Status - Relation Status Age at Mother Father Alive Brother Reason for Visit and Comments: Cardiology Pharmacist - Referral [Other] [facility] HPon 11-20-2024 HP H&P reviewed. The patient was examined and there are no changes to the H&P. Discussed risks, benefits, and alternative therapies with the patient, he understands and willing to proceed with coronary angiogram and possible PCI. Troy Mendez MD PGY-7 Interventional Flexible Shaft Winder [facility] NURSNOTEon 11-20-2024 NURSNOTE RN educated pt on [...] off of unit with all of belongings. [facility] Orders Onlyon 11-13-2024 Orders Only [id number] Magaly Yung 1975 M Date Provider Department Center 11/13/2024 [facility] Family History Problem Relation Age of Onset Coronary artery disease Mother 45 Coronary artery disease Brother 42 Family Status - Relation Status Age at Mother Father Alive Brother [facility] Abstracton 11-01-2024 Abstract [id number] Magaly Yung 1975 Provider Department Center 11/01/2024 MIKAEL [facility] Family History Problem Relation Age of Onset Coronary artery disease Mother 45 Coronary artery disease Brother 42 Family Status - Relation Status Age at Mother Father Alive Brother [facility] Documentationon 10-28-2024 Documentation [id number] Magaly Yung 1975 Date Provider Department Center 10/28/2024 MIKAEL [facility] HeartVAS Family History Problem Relation Age of Onset Coronary artery disease Mother 45 Coronary artery disease Brother 42 Family Status - Relation Status Age at Mother Father Alive Brother Reason for Visit and Comments: Congestive Heart Failure [127] Coronary Artery Disease [187] Normal [facility] HPon 10-28-2024 Cardiology I had heart [...] Diagnosis Plan 1. Primary hypertension Case Request Telecommunications Consultant: Coronary angiography, Percutaneous coronary intervention 2. Multi-vessel coronary artery stenosis Case Request Telecommunications Consultant: Coronary angiography, Percutaneous coronary intervention 3. HFrEF (heart failure with reduced ejection fraction) ([facility]) Case Request Telecommunications Consultant: Coronary angiography, Percutaneous coronary intervention 4. Coronary artery disease of [place] artery of [place] heart with stable angina pectoris 5. Tobacco use disorder Case Request Telecommunications Consultant: Coronary angiography, Percutaneous coronary intervention 6. Mixed hyperlipidemia Case Request Telecommunications Consultant: Coronary angiography, Percutaneous coronary intervention 7. Class 2 severe obesity due to excess calories with serious comorbidity and body mass index (BMI) of 39.0 to 39.9 in adult ([facility]) Case Request Telecommunications Consultant: Coronary angiography, Percutaneous coronary intervention 8. Coronary artery disease involving [place] coronary artery of [place] heart with unstable angina pectoris ([facility]) Case Request Telecommunications Consultant: Coronary angiography, Percutaneous coronary intervention Lab on [...] Bilirubin, Urine 10/17/2024 Negative Negative Final Specific [place], Urine 10/17/2024 1.015 1.010 - 1.030 Final [...] eGFR 10/17/2024 65.8 >60.0 mL/min/1.73m*[address] [facility]???s estimated glomerular filtration rate (eGFR) will [...] RANGE. CHEST 1995;108:231S-246 (more content not included)... [facility] 36on 10-24-2024 36 Called and discussed with patient cardiac catherization reviewed by Dr. Arnav Valle and Dr. Mikael Keene and plan was decided to proceed with PCI instead of open heart surgery. Heart Surgery cancelled for Monday10/28/2024. Patient agreeable to plan of care and all questions and concerns answered appropriately. [facility] Telephoneon 10-24-2024 Telephone [id number] Magaly Yung 1975 M Date Provider Department Center 10/24/2024 [id number] LANDA Surgery None Family History Problem Relation Age of Onset Coronary artery disease Mother 45 Coronary artery disease Brother 42 Family Status - Relation Status Age at Mother Father Alive Brother Normal [facility] Abstracton 10-22-2024 Abstract [id number] Magaly Yung 1975 M Date Provider Department Center [place] 10/22/2024 [facility] History Problem Relation Age of Onset Coronary artery disease Mother 45 Coronary artery disease Brother 42 Family Status - Relation Status Age at Mother Father Alive Brother Normal [facility] APTTon 10-17-2024 ACTIVATED PARTIAL THROMBOPLASTIN TIME IN PPP BY COAGULATION ASSAY 31.0 Seconds Normal 25.0-35.0 [facility] Comment on above: Result Comment: Clin ical significance of the APTT is questionable in the presence of heparin. Performed By: #### L [id number] #### [facility] [address] [place] [address] CBC WITH AUTO DIFFERENTIALon 10-17-2024 Basophils (Bld) [#/Vol] 0.12 10*3/uL Normal 0.00-0.20 [facility] Comment on above: Performed By: #### L [id number] #### [facility] ([facility]) [address] [place] [address] Basophils/100 WBC (Bld) 1.0 % Normal 0.0-1.0 [facility] Comment on above: Performed By: #### L [id number] #### [facility] ([facility]) [address] [place] [address] Eosinophils (Bld) [#/Vol] 0.35 10*3/uL Normal 0.00-0.50 [facility] Comment on above: Performed By: #### L [id number] #### [facility] ([facility]) [address] [place] [address] Eosinophils/100 WBC (Bld) 3.0 % Normal 0.0-6.0 [facility] Comment on above: Performed By: #### L [id number] #### [facility] ([facility]) [address] [place] [address] Erythrocyte distribution width (RBC) [Ratio] 13.2 % Normal 11.5-15.0 [facility] Comment on above: Performed By: #### L [id number] #### [facility] ([facility]) [address] [place] [address] ERYTHROCYTE MEAN CORPUSCULAR HEMOGLOBIN CONCENTRATION (G/DL) BY AUTOMATED 32.2 g/dL Normal 32.0-35.0 [facility] Comment on above: Performed By: #### L [id number] #### [facility] ([facility]) [address] [place] [address] Hematocrit (Bld) [Volume fraction] 48.7 % Normal 39.0-50.0 [facility] Comment on above: Performed By: #### L [id number] #### [facility] ([facility]) [address] [address] Hemoglobin (Bld) [Mass/Vol] 15.7 g/dL Normal 13.0-17.0 [facility] Comment on above: Performed By: #### L [id number] #### [facility] ([facility]) [address] [address] Immature granulocytes (Bld) [#/Vol] 0.04 10*3/uL Normal 0.00-0.20 [facility] Comment on above: Performed By: #### L [id number] #### [facility] ([facility]) [address] [place] [address] Immature granulocytes/100 WBC (Bld) 0.3 % Normal 0.0-1.0 [facility] Comment on above: Performed By: #### L [id number] #### [facility] [address] [address] Lymphocytes (Bld) [#/Vol] 2.14 10*3/uL Normal 1.20-4.00 [facility] Comment on above: Performed By: #### L [id number] #### [facility] ([facility]) [address] [place] [address] Lymphocytes/100 WBC (Bld) 18.4 % Low 20.0-45.0 [facility] Comment on above: Performed By: #### L [id number] #### [facility] ([facility]) [address] [place] [address] MCH (RBC) [Entitic mass] 28.1 pg Normal 27.0-33.0 [facility] Comment on above: Performed By: #### L [id number] #### [facility] ([facility]) [address] [place] [address] MCV (RBC) [Entitic vol] 87.1 fL Normal 82.0-98.0 [facility] Comment on above: Performed By: #### L [id number] #### [facility] ([facility]) [address] [place] [address] Monocytes (Bld) [#/Vol] 1.11 10*3/uL High 0.10-1.00 [facility] Comment on above: Performed By: #### L [id number] #### [facility] ([facility]) [address] [place] [address] Monocytes/100 WBC (Bld) 9.5 % Normal 5.0-12.0 [facility] Comment on above: Performed By: #### L [id number] #### [facility] ([facility]) [address] [place] [address] Neutrophils (Bld) [#/Vol] 7.90 10*3/uL High 1.60-7.60 [facility] Comment on above: Performed By: #### L [id number] #### [facility] ([facility]) [address] [place] [address] Neutrophils/100 WBC (Bld) 67.8 % Normal 40.0-72.0 [facility] Comment on above: Performed By: #### L [id number] #### [facility] [address] [place] [address] NRBC (PER 100 WBCS) BY AUTOMATED COUNT 0.0 % Normal 0 [facility] Comment on above: Performed By: #### L [id number] #### [facility] [address] [place] [address] PLATELETS (10*3/UL) IN BLOOD AUTOMATED COUNT 236 10*3/uL Normal 150-400 [facility] Comment on above: Performed By: #### L [id number] #### [facility] ([facility] [address] [place] [address] RBC (Bld) [#/Vol] 5.59 10*6/uL Normal 4.20-5.70 [facility] Comment on above: Performed By: #### L [id number] #### [facility] ([facility]) [address] [place] [address] WBC (Bld) [#/Vol] 11.66 10*3/uL High 4.00-10.60 [facility] Comment on above: Performed By: #### L [id number] #### [facility] ([facility]) [address] [place] [address] COMPREHENSIVE METABOLIC PANE Davi 10-17-2024 Albumin [Mass/Vol] 4.1 g/dL Normal 3.5-5.7 [facility] Comment on above: Performed By: #### L [id number] #### [facility] ([facility] [address] [place] [address] ALP [Catalytic activity/Vol] 93 U/L Normal 34-104 [facility] Comment on above: Performed By: #### L [id number] #### [facility] ([facility] [address] [place] [address] ALT [Catalytic activity/Vol] 28 U/L Normal 7-52 [facility] Comment on above: Performed By: #### L [id number] #### [facility] ([facility] [address] [place] [address] Anion gap [Moles/Vol] 10 mmol/L Normal 7-20 [facility] Comment on above: Performed By: #### L [id number] #### [facility] ([facility]) [address] [place] [address] AST [Catalytic activity/Vol] 16 U/L Normal 13-39 [facility] Comment on above: Performed By: #### L [id number] #### [facility] ([facility]) [address] [place] [address] Bilirubin [Mass/Vol] 0.4 mg/dL Normal 0.3-1.0 [facility] Comment on above: Performed By: #### L [id number] #### [facility] [address] [place] [address] Calcium [Mass/Vol] 9.6 mg/dL Normal 8.6-10.3 [facility] Comment on above: Performed By: #### L [id number] #### [facility] ([facility] [address] [place] [address] Chloride [Moles/Vol] 103 mmol/L Normal 98-107 [facility] Comment on above: Performed By: #### L [id number] #### [facility] ([facility] [address] [place] [address] CO2 [Moles/Vol] 29 mmol/L Normal 21-31 [facility] Comment on above: Performed By: #### L [id number] #### [facility] ([facility] [address] [place] [address] Creatinine [Mass/Vol] 1.34 mg/dL High 0.70-1.30 [facility] Comment on above: Performed By: #### L [id number] #### [facility] ([facility] [address] [place] [address] GLOMERULAR FILTRATION RATE ML/MIN/1.73 SQ M.PREDICTED 65.8 mL/min/1.73m*2 Normal >60.0 [facility] Comment on above: Result Comment: [facility]???s estimated glomerular filtration rate (eGFR) will [...] group of individuals. Performed By: #### L [id number] #### [facility] ([facility]) [address] [place] [address] Glucose [Mass/Vol] 159 mg/dL High 70-100 [facility] Comment on above: Performed By: #### L [id number] #### [facility] ([facility]) [address] [place] [address] Potassium [Moles/Vol] 4.4 mmol/L Normal 3.5-5.1 [facility] Comment on above: Performed By: #### L [id number] #### [facility] ([facility]) [address] [place] [address] Protein [Mass/Vol] 7.0 g/dL Normal 6.0-8.3 [facility] Comment on above: Performed By: #### L [id number] #### [facility] ([facility]) [address] [place] [address] Sodium [Moles/Vol] 138 mmol/L Normal 136-145 [facility] Comment on above: Performed By: #### L [id number] #### [facility] ([facility]) [address] [place] [address] Urea nitrogen [Mass/Vol] 19 mg/dL Normal 7-25 [facility] Comment on above: Performed By: #### L [id number] #### [facility] ([facility]) [address] [place] [address] UREA NITROGEN/CREATININE (MASS RATIO) IN SER/PLAS 14.[address] [facility] Comment on above: Performed By: #### L [id number] #### [facility] ([facility]) [address] [place] [address] Labon 10-17-2024 Lab [id number] Maty Yunge Mono 1975 M Date Provider Department Center [place] 10/17/2024 2245-[facility] OPD LAB RESOURCE [facility] OPD [facility] Family History Problem Relation Age of Onset Coronary artery disease Mother 45 Coronary artery disease Brother 42 Family Status - Relation Status Age at Mother Father Alive Brother Normal [facility] PROTIME-INRon 10-17-2024 INR IN PPP BY COAGULATION ASSAY 1.11 High 0.90-1.10 [facility] Comment on above: Result Comment: ACCC [...] RANGE. CHEST 1995;108:231S-246S. Performed By: #### L [id number] #### [facility] ([facility]) [address] [place] [address] PROTHROMBIN TIME (PT) IN PPP BY COAGULATION ASSAY 14.3 Seconds Normal 12.3-14.8 [facility] Comment on above: Performed By: #### L [id number] #### [facility] ([facility]) [address] [place] [address] TYPE AND SCREENon 10-17-2024 AB SCREEN Negative Normal [facility] Comment on above: Performed By: #### L [id number] #### [facility] BLOOD BANK , ABO group Nom (Bld) AB Normal [facility] Comment on above: Performed By: #### L [id number] #### [facility] BLOOD BANK , RH TYPE IN BLOOD Positive Normal [facility] Comment on above: Performed By: #### L [id number] #### [facility] BLOOD BANK , URINALYSISon 10-17-2024 BILIRUBIN, TOTAL PRESENCE IN URINE Negative Normal Negative [facility] Comment on above: Order Comment: Micro scopics not performed on urines with negative chemical reactions unless requested on original order. Performed By: #### L [id number] #### [facility] [facility] (BEAKER) [address] [place] [address] Clarity (U) Clear Normal Clear [facility] Comment on above: Order Comment: Micro scopics not performed on urines with negative chemical reactions unless requested on original order. Performed By: #### L [id number] #### [facility] (BEAKER) [address] [place] [address] Color (U) Yellow Normal Yellow, Light Yellow, Colorless [facility] Comment on above: Order Comment: Micro scopics not performed on urines with negative chemical reactions unless requested on original order. Performed By: #### L [id number] #### [facility] (BE[facility]ER) [address] [place] [address] Glucose (U) [Mass/Vol] mg/dL Abnormal Normal [facility] Comment on above: Order Comment: Micro scopics not performed on urines with negative chemical reactions unless requested on original order. Performed By: #### L [id number] #### [facility] ([facility]AKER) [address] [place] [address] HEMOGLOBIN PRESENCE IN URINE Negative Normal Negative [facility] Comment on above: Order Comment: Micro scopics not performed on urines with negative chemical reactions unless requested on original order. Performed By: #### L [id number] #### [facility] (BEAKER) [address] [place] [address] Ketones Ql (U) Negative Normal Negative [facility] Comment on above: Order Comment: Micro scopics not performed on urines with negative chemical reactions unless requested on original order. Performed By: #### L [id number] #### [facility] ([facility]) [address] [place] [address] LEUKOCYTE ESTERASE PRESENCE IN URINE BY TEST STRIP Negative Normal Negative [facility] Comment on above: Order Comment: Micro scopics not performed on urines with negative chemical reactions unless requested on original order. Performed By: #### L [id number] #### [facility] ([facility]) [address] [place] [address] NITRITE PRESENCE IN URINE Negative Normal Negative [facility] Comment on above: Order Comment: Micro scopics not performed on urines with negative chemical reactions unless requested on original order. Performed By: #### L [id number] #### [facility] ([facility]) [address] [place] [address] pH (U) 6.0 [pH] Normal 5.0-8.0 [facility] Comment on above: Order Comment: Micro scopics not performed on urines with negative chemical reactions unless requested on original order. Performed By: #### L [id number] #### [facility] ([facility]) [address] [place] [address] Protein (U) [Mass/Vol] Negative Normal Negative [facility] Comment on above: Order Comment: Micro scopics not performed on urines with negative chemical reactions unless requested on original order. Performed By: #### L [id number] #### [facility] ([facility]) [address] [place] [address] Specific gravity (U) [Rel density] 1.015 Normal 1.010-1.030 [facility] Comment on above: Order Comment: Micro scopics not performed on urines with negative chemical reactions unless requested on original order. Performed By: #### L [id number] #### [facility] ([facility]) [address] [place] [address] UROBILINOGEN (MG/DL) IN URINE Normal Normal Normal [facility] Comment on above: Order Comment: Micro scopics not performed on urines with negative chemical reactions unless requested on original order. Performed By: #### L [id number] #### [facility] (DHRUV) [address] [place] [address] Documentationon 10-16-2024 Documentation [id number] Magaly Yung 1975 M Date Provider Department Center 10/16/2024 [id number] PAZ [facility] Family History Problem Relation Age of Onset Coronary artery disease Mother 45 Coronary artery disease Brother 42 Family Status - Relation Status Age at Mother Father Alive Brother Reason for Visit and Comments: HF Inpatient satisfaction survey sent. [Other] Normal [facility] Abstracton 10-15-2024 Abstract [id number] Magaly Yung 1975 M Date Provider Department Center 10/15/2024 2020-GUSTABO CARO HVCTS [facility] Family History Problem Relation Age of Onset Coronary artery disease Mother 45 Coronary artery disease Brother 42 Family Status - Relation Status Age at Mother Father Alive Brother Normal [facility] Abstract [id number] Magaly Yung 1975 M Date Provider Department Center 10/15/[id number]-IVOGRVERIN HESS [facility] Family History Problem Relation Age of Onset Coronary artery disease Mother 45 Coronary artery disease Brother 42 Family Status - Relation Status Age at Mother Father Alive Brother [facility] Follow-Upon 10-11-2024 Follow-Up [id number] Magaly Yung 1975 M Date Provider Department Center 10/11/2024 [id number] WALDRON SHYLA Tierney Family History Problem Relation Age of Onset Coronary artery disease Mother 45 Coronary artery disease Brother 42 Family Status - Relation Status Age at Mother Father Alive Brother Level of Service:89687 DE OFFICE/OUTPATIENT ESTABLISHED LOW MDM 20 MIN Reason for Visit and Comments: Coronary Artery Disease [187] - Scheduled for CABG on 10/21/2024 at [facility] Congestive Heart Failure [127] - Denies SOB and LE edema. Hyperlipidemia [182] - He's getting back pain s/p starting atorvastatin. Hypertension [396775] Fatigue [46] [facility] 36on 10-07-2024 36 Phoned patient for Hospital Follow up & pre-op instruction Instructed patient to come to [facility] the week of October 14 for pre-op [...] Check in at registration desk lobby of [facility] then check in on second floor at surgical waiting room desk. Patient denies chest pain and shortness of breath. Patien requesting to move surgery date up as he is currently off work. I told patient I would relay his request to Dr. Hess. [facility] 36 Discharge date: 10/04 Call date: 10/07/24 [...] possible to have his surgery moved up. Bilingual Branch Manager will notify the CT Surgery RN of the patient's question. Pt denied any additional questions or concerns at this time. Normal [facility] Telephoneon 10-07-2024 Telephone [id number] Magaly Yung 1975 M Date Provider Department Center 10/07/2024 JARED ROMERO [facility] No family history on file Reason for Visit and Comments: HF post discharge call. [Other] [facility] 36on 10-05-2024 36 Post Discharge Call Good morning, I am Gisela Houser, RN a lead nurse from [facility]. I am calling you to follow [...] No Patient Name Magaly Yung Date 10/05/24 [facility] Telephoneon 10-05-2024 Telephone [id number] Magaly Yung 1975 [facility] Department Center [place] 10/05/2024 GISELA MARQUEZ [facility] Family History Problem Relation Age of Onset Coronary artery disease Mother 45 Coronary artery disease Brother 42 Family Status - Relation Status Age at Mother Father Alive Brother Reason for Visit and Comments: Hospital Follow-up [832] [facility] 30on 10-04-2024 30 The patient is Moderately Stable - Low risk of patient condition declining or worsening The patient's goals for the shift include comfort,rest The clinical goals for the shift include stable vitals, comfort Over the shift, the patient did not make progress toward the following goals. Barriers to progression include na. Recommendations to address these barriers include na. [facility] 30 The patient is Moderately Stable - [...] and maintained or improved Outcome: Progressing Normal [facility] ANTI-XA (HEPARIN LEVEL)on HEPARIN UNFRACTIONATED (U/ML) IN PPP BY CHROMOGENIC METHOD 0.38 IU/mL Normal 0.3-0.7 [facility] Comment on above: Result Comment: [place] roxaban and Apixaban will interfere with the anti Xa assay used to monitor UFH and LMWH. Performed By: #### L [id number] ####[facility] (BEAKER)[address] [place] [address] CONSULTon 10-04-2024 CONSULT discharge planning: to Home Patient came to this admission from their private residence in the community, where they live with their spouse and family. - no OT or PT orders in place at this time - LDAs tab not listing any open wounds or closed skin issues at this time - follow up with [facility] on AVS - follow up with [facility] on AVS Normal [facility] 30on 10-03-2024 30 Daily Case Managemen t Update Multidisciplinary rounds have been completed. Barriers to Discharge: Pending clinical course and improvement in clinical condition. Management of chest pain, coronary artery disease: S/p Heart cath. CT surgery starting pre-op workup process. HFrEF: IV diuresis. Current Discharge plan is to return home when medically ready. Diet: Dietary Orders (From admission, onward) Start Ordered 10/02/241816 Special Kitchen Request Once Comments: Please send [...] Other Other: Heart Failure 10/02/[address] [facility] 30 The patient is Moderately Stable - Low risk of patient condition declining or worsening The patient's goals for the shift include comfort, rest The clinical goals for the shift include stable vitals, comfort Over the shift, the patient did not make progress toward the following goals. Barriers to progression include. Recommendations to address these barriers include. Normal [facility] 30 The patient is Moderately Stable [...] and maintained or improved Outcome: Progressing Normal [facility] ANTI-XA (HEPARIN LEVEL)on HEPARIN UNFRACTIONATED (U/ML) IN PPP BY CHROMOGENIC METHOD 0.37 IU/mL Normal 0.3-0.7 [facility] Comment on above: Result Comment: [place] roxaban and Apixaban will interfere with the anti Xa assay used to monitor UFH and LMWH. Performed By: #### L [id number] ####[facility] (BEAKER)[address] [place] [address] HEPARIN UNFRACTIONATED (U/ML) IN PPP BY CHROMOGENIC METHOD 0.32 IU/mL Normal 0.3-0.7 [facility] Comment on above: Result Comment: [place] roxaban and Apixaban will interfere with the anti Xa assay used to monitor UFH and LMWH. Performed By: #### L [id number] ####[facility] (BEAKER)[address] [place] [address] HEPARIN UNFRACTIONATED (U/ML) IN PPP BY CHROMOGENIC METHOD 0.34 IU/mL Normal 0.3-0.7 [facility] Comment on above: Result Comment: [place] roxaban and Apixaban will interfere with the anti Xa assay used to monitor UFH and LMWH. Performed By: #### L [id number] ####[facility] ([facility])[address] [place] [address] HEPARIN UNFRACTIONATED (U/ML) IN PPP BY CHROMOGENIC METHOD 0.22 IU/mL Low 0.3-0.7 [facility] Comment on above: Order Comment: Check anti-Xa level every 6 hours while on heparin infusion, or per protocol. Result Comment: [place] roxaban and Apixaban will interfere with the anti Xa assay used to monitor UFH and LMWH. Performed By: #### L [id number] ####[facility] ([facility])[address] [place] [address] BASIC METABOLIC PANELon 09-17 Anion gap [Moles/Vol] 13 mmol/L Normal 7-20 [facility] Comment on above: Performed By: #### L [id number] ####[facility] ([facility])[address] [place] [address] Calcium [Mass/Vol] 9.2 mg/dL Normal 8.6-10.3 [facility] Comment on above: Performed By: #### L [id number] ####[facility] ([facility])[address] [place] [address] Chloride [Moles/Vol] 102 mmol/L Normal 98-107 [facility] Comment on above: Performed By: #### L [id number] ####[facility] ([facility])[address] [place] [address] CO2 [Moles/Vol] 30 mmol/L Normal 21-31 [facility] Comment on above: Performed By: #### L [id number] ####[facility] ([facility])[address] [place] [address] Creatinine [Mass/Vol] 1.17 mg/dL Normal 0.70-1.30 [facility] Comment on above: Performed By: #### L [id number] ####[facility] ([facility])[address] [place] [address] GLOMERULAR FILTRATION RATE ML/MIN/1.73 SQ M.PREDICTED 77.4 mL/min/1.73m*2 Normal >60.0 [facility] Comment on above: Result Comment: [facility]???s estimated glomerular filtration rate (eGFR) will [...] group of individuals. Performed By: #### L [id number] ####[facility] ([facility])[address] [place] [address] Glucose [Mass/Vol] 122 mg/dL High 70-100 [facility] Comment on above: Performed By: #### L [id number] ####[facility] ([facility])[address] [place] [address] Potassium [Moles/Vol] 3.7 mmol/L Normal 3.5-5.1 [facility] Comment on above: Performed By: #### L [id number] ####[facility] ([facility])[address] [place] [address] Sodium [Moles/Vol] 141 mmol/L Normal 136-145 [facility] Comment on above: Performed By: #### L [id number] ####[facility] ([facility])[address] [place] [address] Urea nitrogen [Mass/Vol] 21 mg/dL Normal 7-25 [facility] Comment on above: Performed By: #### L [id number] ####[facility] ([facility])[address] [place] [address] UREA NITROGEN/CREATININE (MASS RATIO) IN SER/PLAS 17.[address] [facility] Comment on above: Performed By: #### L [id number] ####[facility] ([facility])[address] [place] [address] CBCon 10-03-2024 Erythrocyte distribution width (RBC) [Ratio] 14.0 % Normal 11.5-15.0 [facility] Comment on above: Performed By: #### L [id number] ####[facility] ([facility])[address] [place] [address] ERYTHROCYTE MEAN CORPUSCULAR HEMOGLOBIN CONCENTRATION (G/DL) BY AUTOMATED 32.0 g/dL Normal 32.0-35.0 [facility] Comment on above: Performed By: #### L [id number] ####[facility] ([facility])[address] [place] [address] Hematocrit (Bld) [Volume fraction] 49.7 % Normal 39.0-50.0 [facility] Comment on above: Performed By: #### L [id number] ####[facility] ([facility])[address] [place] [address] Hemoglobin (Bld) [Mass/Vol] 15.9 g/dL Normal 13.0-17.0 [facility] Comment on above: Performed By: #### L [id number] ####[facility] ([facility])[address] [place] [address] MCH (RBC) [Entitic mass] 28.0 pg Normal 27.0-33.0 [facility] Comment on above: Performed By: #### L [id number] ####[facility] ([facility])[address] [place] [address] MCV (RBC) [Entitic vol] 87.7 fL Normal 82.0-98.0 [facility] Comment on above: Performed By: #### L [id number] ####[facility] [place] [address] PLATELETS (10*3/UL) IN BLOOD AUTOMATED COUNT 177 10*3/uL Normal 150-400 [facility] Comment on above: Performed By: #### L [id number] ####[facility] ([facility])[address] [place] [address] RBC (Bld) [#/Vol] 5.67 10*6/uL Normal 4.20-5.70 [facility] Comment on above: Performed By: #### L [id number] ####[facility] [place] [address] WBC (Bld) [#/Vol] 10.55 10*3/uL Normal 4.00-10.60 [facility] Comment on above: Performed By: #### L [id number] ####[facility] ([facility])[address] [place] [address] CONSULTon 10-03-2024 CONSULT Inpatient consult to Cardiothoracic Surgery Consult performed by: Nida Landa CNP Consult ordered by: Mikael Keene MD Reason for consult: Severe Multivessel Coronary Artery Disease Cardiothoracic Surgery Consultation Note 10/03/2024 Room: [address] [place] [address] Reason For Consult evaluate for CABG Referring Provider: Merrill Hernández MD History Of Present Illness Magaly Yung is a 49 y.o. male with PMH of smoker, obesity, strong family history of CAD who presented to [facility] as a direct transfer where he was experiencing intermittent chest pain, described as anterior chest dull to pressure-like associated with dyspnea radiating to left. [facility] labs remarkable for BNP 448, BUN 15.9, [...] is somewhat limited. He was transferred to [facility] for cardiac catherization. Underwent cardiac cath yesterday with Dr. Mikael Keene and was found to have severe multivessel CAD. CT Surgery was consulted for surgical evaluation and recommendations. Seen bedside with Dr. Hess this morning. Remains on continuous heparin infusion. Denies chest pain or SOB. Most recent troponin 8. Assessment: Principal Problem: Coronary artery disease of [place] artery of [place] heart with stable angina pectoris Active Problems: NSTEMI (non-ST elevated myocardial infarction) ([facility]) Primary hypertension HFrEF (heart failure with reduced ejection fraction) ([facility]) Obesity Former smoker Plan : -Patient seen and evaluated by Cardiothoracic Team. Dr. Erin Hess personally examined the patient and reviewed The Cardiac Catherization, Echocardiogram, CXR, and Other Diagnostic Testing. Findings discussed with patient. Explained current disease process and reviewed treatment options. -CT Surgery Recommendation: Coronary Artery Bypass Grafting. [place]chocardiogram from [place] not transferred over, will obtain one this [...] 50.7%, WBC Count: 13.7 10???/?L, Platelet Count: [id number] cells/?L PreOp Medications: Oral diabetes control Substance Abuse: Former smoker Risk Factors / Comorbidities: Diabetes Mellitus , Hypertension, Family Hx of CAD Pulmonary RF: Moderate CLD Cardiac Status: Acute heart failure, NYHA Class III, Ejection Fraction = 30% Coronary Artery Disease: 3 vessels diseased, Proximal LAD Stenosis >= 70%, Non-ST Elevation CA, CA: 1 to 7 Days -Pre-Op Testing needed [...] 81 mg oral Daily 81 mg at 10/02/24 0941 atorvastatin 40 mg oral Nightly 40 mg at 10/02/242106 carvedilol 25 mg oral BID 25 mg at 10/02/24 210 dapagliflozin propanediol 10 mg oral Daily 10 mg at 10/02/24 0941 furosemide 60 mg intravenous q12h heparin (porcine) [...] 0941 Revie (more content not included)... Normal [facility] MAGNESIUMon 10-03-2024 Magnesium [Mass/Vol] 2.3 mg/dL Normal 1.9-2.7 [facility] Comment on above: Performed By: #### L [id number] ####[facility] ([facility]AKER)[address] [place] [address] URINALYSISon 10-03-2024 BILIRUBIN, TOTAL PRESENCE IN URINE Negative Normal Negative [facility] Comment on above: Order Comment: Micro scopics not performed on urines with negative chemical reactions unless requested on original order. Performed By: #### L [id number] ####[facility] (BEAKER)[address] [place] [address] Clarity (U) Clear Normal Clear [facility] Comment on above: Order Comment: Micro scopics not performed on urines with negative chemical reactions unless requested on original order. Performed By: #### L [id number] ####[facility] ([facility])[address] [place] [address] Color (U) Light-Yellow Normal Colorless, Yellow, Light-Yellow [facility] Comment on above: Order Comment: Micro scopics not performed on urines with negative chemical reactions unless requested on original order. Performed By: #### L [id number] ####[facility] ([facility])[address] [place] [address] Glucose (U) [Mass/Vol] mg/dL Abnormal Normal [facility] Comment on above: Order Comment: Micro scopics not performed on urines with negative chemical reactions unless requested on original order. Performed By: #### L [id number] ####[facility] ([facility])[address] [facility] [address] HEMOGLOBIN PRESENCE IN URINE Negative Normal Negative [facility] Comment on above: Order Comment: Micro scopics not performed on urines with negative chemical reactions unless requested on original order. Performed By: #### L [id number] ####[facility] ([facility])[address] [facility] [address] Ketones Ql (U) Negative Normal Negative [facility] Comment on above: Order Comment: Micro scopics not performed on urines with negative chemical reactions unless requested on original order. Performed By: #### L [id number] ####[facility] ([facility])[address] [facility] [place] [address] LEUKOCYTE ESTERASE PRESENCE IN URINE BY TEST STRIP Negative Normal Negative [facility] Comment on above: Order Comment: Micro scopics not performed on urines with negative chemical reactions unless requested on original order. Performed By: #### L [id number] ####[facility] ([facility])[address] [facility] [address] NITRITE PRESENCE IN URINE Negative Normal Negative [facility] Comment on above: Order Comment: Micro scopics not performed on urines with negative chemical reactions unless requested on original order. Performed By: #### L [id number] ####[facility] ([facility])[address] [place] [address] pH (U) 6.0 [pH] Normal 5.0-8.0 [facility] Comment on above: Order Comment: Micro scopics not performed on urines with negative chemical reactions unless requested on original order. Performed By: #### L [id number] ####[facility] ([facility])[address] [place] [address] Protein (U) [Mass/Vol] Negative Normal Negative [facility] Comment on above: Order Comment: Micro scopics not performed on urines with negative chemical reactions unless requested on original order. Performed By: #### L [id number] ####[facility] ([facility])[address] [place] [address] Specific gravity (U) [Rel density] 1.020 Normal 1.010-1.030 [facility] Comment on above: Order Comment: Micro scopics not performed on urines with negative chemical reactions unless requested on original order. Performed By: #### L [id number] ####[facility] ([facility])[address] [place] [address] UROBILINOGEN (MG/DL) IN URINE 2.0 mg/dL Abnormal Normal [facility] Comment on above: Order Comment: Micro scopics not performed on urines with negative chemical reactions unless requested on original order. Performed By: #### L [id number] ####[facility] ([facility])[address] [place] [address] 30on 10-02-2024 30 Daily Case Managemen t Update Multidisciplinary rounds have been completed. Barriers to Discharge: Patient is a transfer from [facility] for chest pain, cardiology consulted and plan to take patient for heart cath. Bilingual Branch Manager did read in previous chart notes As above also would recommend outpatient sleep study due to this technical proposal writer reached out to primary team about getting pulmonary Navigator consult, waiting to hear back. Discharge dispo: plan at this time is for patient to discharge home when medically ready. Bilingual Branch Manager heard back from Dr Yu, and was given order to pulmonary navigation consult. Bilingual Branch Manager placed order. Diet: Dietary Orders (From admission, onward) Start Ordered 10/02/24 0243 Regular Diet Heart Healthy/HTN, CABG,Stroke, (2gNA, low fat, low cholesterol) Diet effective now Question Answer Comment Room Service? Yes Fat restriction: Heart Healthy/HTN, CABG,Stroke, (2gNA, low fat, low cholesterol) 10/02/24244 Physician Expected Discharge Date: 10/06/2024 Discharge Delays: [...] Level of Consultation Consultation and Management 10/02/24 153 Ancillary Consults (From admission, onward) Start Ordered 10/02/24 0244 Inpatient consult to Social Work Once Provider: (Not yet assigned) Question Answer Comment Select all services needed for the patient Other Other: Heart Failure 10/02/24244 [facility] 30 The patient is Moderately Stable - Low risk of patient condition declining or worsening The patient's goals for the shift include comfort The clinical goals for the shift include stable vitals Over the shift, the patient did not make progress toward the following goals. Barriers to progression include. Recommendations to address these barriers include. [facility] 30 The patient is Moderately Stable - [...] and behaviors that affect risk of falls Spearman fall precautions as indicated by assessment Educate [...] conditions and prevent exacerbation or deterioration Normal [facility] APTTon 10-02-2024 ACTIVATED PARTIAL THROMBOPLASTIN TIME IN PPP BY COAGULATION ASSAY 28.5 Seconds Normal 25.0-35.0 [facility] Comment on above: Order Comment: Basel ine aPTT before initiating heparin infusion. Result Comment: Clin ical significance of the APTT is questionable in the presence of heparin. Performed By: #### L [id number] #### [facility] (BEAKER) [address] [place] [address] ACTIVATED PARTIAL THROMBOPLASTIN TIME IN PPP BY COAGULATION ASSAY 28.2 Seconds Normal 25.0-35.0 [facility] Comment on above: Order Comment: Basel ine aPTT before initiating heparin infusion. Result Comment: Clin ical significance of the APTT is questionable in the presence of heparin. Performed By: #### L [id number] #### [facility] ([facility]) [address] [place] [address] B-TYPE NATRIURETIC PEPTIDEon 10-02-2024 Natriuretic peptide B (Bld) [Mass/Vol] 121 pg/mL High 0-100 [facility] Comment on above: Performed By: #### L [id number] ####[facility] ([facility])[address] [place] [address] CBC WITH AUTO DIFFERENTIALon 10-02-2024 Basophils (Bld) [#/Vol] 0.10 10*3/uL Normal 0.00-0.20 [facility] Comment on above: Performed By: #### L [id number] #### [facility] ([facility]) [address] [place] [address] Basophils/100 WBC (Bld) 0.7 % Normal 0.0-1.0 [facility] Comment on above: Performed By: #### L [id number] #### [facility] ([facility]) [address] [place] [address] Eosinophils (Bld) [#/Vol] 0.44 10*3/uL Normal 0.00-0.50 [facility] Comment on above: Performed By: #### L [id number] #### [facility] ([facility]) [address] [place] [address] Eosinophils/100 WBC (Bld) 3.2 % Normal 0.0-6.0 [facility] Comment on above: Performed By: #### L [id number] #### [facility] ([facility]) [address] [place] [address] Erythrocyte distribution width (RBC) [Ratio] 13.8 % Normal 11.5-15.0 [facility] Comment on above: Performed By: #### L [id number] #### [facility] ([facility]) [address] [place] [address] ERYTHROCYTE MEAN CORPUSCULAR HEMOGLOBIN CONCENTRATION (G/DL) BY AUTOMATED 32.0 g/dL Normal 32.0-35.0 [facility] Comment on above: Performed By: #### L [id number] #### [facility] ([facility]) [address] [place] [address] Hematocrit (Bld) [Volume fraction] 50.7 % High 39.0-50.0 [facility] Comment on above: Performed By: #### L [id number] #### [facility] ([facility] [address] [place] [address] Hemoglobin (Bld) [Mass/Vol] 16.2 g/dL Normal 13.0-17.0 [facility] Comment on above: Performed By: #### L [id number] #### [facility] ([facility]) [address] [facility] [place] [address] Immature granulocytes (Bld) [#/Vol] 0.06 10*3/uL Normal 0.00-0.20 [facility] Comment on above: Performed By: #### L [id number] #### [facility] ([facility]) [address] [facility] [place] [address] Immature granulocytes/100 WBC (Bld) 0.4 % Normal 0.0-1.0 [facility] Comment on above: Performed By: #### L [id number] #### [facility] ([facility]) [address] [place] [address] Lymphocytes (Bld) [#/Vol] 3.01 10*3/uL Normal 1.20-4.00 [facility] Comment on above: Performed By: #### L [id number] #### [facility] ([facility]) [address] [place] [address] Lymphocytes/100 WBC (Bld) 21.9 % Normal 20.0-45.0 [facility] Comment on above: Performed By: #### L [id number] #### [facility] ([facility]) [address] [facility] [place] [address] MCH (RBC) [Entitic mass] 27.6 pg Normal 27.0-33.0 [facility] Comment on above: Performed By: #### L [id number] #### [facility] ([facility]AKER) [address] [place] [address] MCV (RBC) [Entitic vol] 86.4 fL Normal 82.0-98.0 [facility] Comment on above: Performed By: #### L [id number] #### [facility] ([facility]ER) [address] [place] [address] Monocytes (Bld) [#/Vol] 0.95 10*3/uL Normal 0.10-1.00 [facility] Comment on above: Performed By: #### L [id number] #### [facility] ([facility]) [address] [place] [address] Monocytes/100 WBC (Bld) 6.9 % Normal 5.0-12.0 [facility] Comment on above: Performed By: #### L [id number] #### [facility] ([facility]) [address] [place] [address] Neutrophils (Bld) [#/Vol] 9.18 10*3/uL High 1.60-7.60 [facility] Comment on above: Performed By: #### L [id number] #### [facility] ([facility] [address] [place] [address] Neutrophils/100 WBC (Bld) 66.9 % Normal 40.0-72.0 [facility] Comment on above: Performed By: #### L [id number] #### [facility] ([facility]) [address] [place] [address] NRBC (PER 100 WBCS) BY AUTOMATED COUNT 0.0 % Normal 0 [facility] Comment on above: Performed By: #### L [id number] #### [facility] ([facility]) [address] [place] [address] PLATELETS (10*3/UL) IN BLOOD AUTOMATED COUNT 181 10*3/uL Normal 150-400 [facility] Comment on above: Performed By: #### L [id number] #### [facility] ([facility]) [address] [place] [address] RBC (Bld) [#/Vol] 5.87 10*6/uL High 4.20-5.70 [facility] Comment on above: Performed By: #### L [id number] #### [facility] ([facility]) [address] [place] [address] WBC (Bld) [#/Vol] 13.74 10*3/uL High 4.00-10.60 [facility] Comment on above: Performed By: #### L [id number] #### [facility] ([facility]) [address] [place] [address] COMPREHENSIVE METABOLIC PANE Davi 10-02-2024 Albumin [Mass/Vol] 4.3 g/dL Normal 3.5-5.7 [facility] Comment on above: Performed By: #### L [id number] #### [facility] ([facility]) [address] [place] [address] ALP [Catalytic activity/Vol] 80 U/L Normal 34-104 [facility] Comment on above: Performed By: #### L [id number] #### [facility] ([facility]) [address] [place] [address] ALT [Catalytic activity/Vol] 22 U/L Normal 7-52 [facility] Comment on above: Performed By: #### L [id number] #### [facility] ([facility]) [address] [place] [address] Anion gap [Moles/Vol] 11 mmol/L Normal 7-20 [facility] Comment on above: Performed By: #### L [id number] #### [facility] ([facility]) [address] [place] [address] AST [Catalytic activity/Vol] 17 U/L Normal 13-39 [facility] Comment on above: Performed By: #### L [id number] #### [facility] ([facility]) [address] [place] [address] Bilirubin [Mass/Vol] 0.6 mg/dL Normal 0.3-1.0 [facility] Comment on above: Performed By: #### L [id number] #### [facility] ([facility]) [address] [place] [address] Calcium [Mass/Vol] 9.2 mg/dL Normal 8.6-10.3 [facility] Comment on above: Performed By: #### L [id number] #### [facility] ([facility]) [address] [place] [address] Chloride [Moles/Vol] 102 mmol/L Normal 98-107 [facility] Comment on above: Performed By: #### L [id number] #### [facility] ([facility]) [address] [place] [address] CO2 [Moles/Vol] 29 mmol/L Normal 21-31 [facility] Comment on above: Performed By: #### L [id number] #### [facility] ([facility]) [address] [place] [address] Creatinine [Mass/Vol] 1.11 mg/dL Normal 0.70-1.30 [facility] Comment on above: Performed By: #### L [id number] #### [facility] ([facility]) [address] [place] [address] GLOMERULAR FILTRATION RATE ML/MIN/1.73 SQ M.PREDICTED 82.4 mL/min/1.73m*2 Normal >60.0 [facility] Comment on above: Result Comment: [facility]???s estimated glomerular filtration rate (eGFR) will [...] group of individuals. Performed By: #### L [id number] #### [facility] ([facility]) [address] [place] [address] Glucose [Mass/Vol] 181 mg/dL High 70-100 [facility] Comment on above: Performed By: #### L [id number] #### [facility] ([facility]) [address] [place] [address] Potassium [Moles/Vol] 3.4 mmol/L Low 3.5-5.1 [facility] Comment on above: Performed By: #### L [id number] #### [facility] ([facility]) [address] [place] [address] Protein [Mass/Vol] 7.0 g/dL Normal 6.0-8.3 [facility] Comment on above: Performed By: #### L [id number] #### [facility] ([facility]) [address] [place] [address] Sodium [Moles/Vol] 139 mmol/L Normal 136-145 [facility] Comment on above: Performed By: #### L [id number] #### [facility] ([facility]) [address] [place] [address] Urea nitrogen [Mass/Vol] 18 mg/dL Normal 7-25 [facility] Comment on above: Performed By: #### L [id number] #### [facility] ([facility]) [address] [place] [address] UREA NITROGEN/CREATININE (MASS RATIO) IN SER/PLAS 16.[address] [facility] Comment on above: Performed By: #### L [id number] #### [facility] ([facility]) [address] [place] [address] CONSULTon 10-02-2024 CONSULT Adult Nutrition Assessment: Name: Magaly Yung Date: 1975 Date of Visit: 10/02/24 Admission Dx: NSTEMI (non-ST elevated myocardial infarction) ([facility]/HCC) [I21.4] Reason for assessment: MD referral Information [...] Value Date/Time BUN 18 10/02/2024357 CREATININE 1.11 10/02/2024357 NA 139 10/02/2024357 K 3.4 (L) 10/02/2024357 HGBA1C 6.8 (H) 10/02/2024357 HGB 16.2 10/02/2024357 WBC 13.74 (H) 10/02/2024357 CHOL 211 (H) 10/02/2024357 HDL 21 (L) 10/02/2024357 Allergies: Allergies Allergen Reactions Penicillins Anaphylaxis Nutrition [...] day. 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 [...] handout fr (more content not included)... Normal [facility] CONSULT --- Attestation signed by Marko Smith MD at 10/02/2024 7:53 PM (Updated) I personally spoke with and examined Mr. Yung this morning with Dr. Montero. He has severe LV dysfunction the setting of angina at low levels of activity such as walking across his trailer. My diagnoses are acute systolic heart failure in the setting of a non-ST elevation CA. We discussed the expected risks and benefits [...] use disorder for 20 years, presenting from [facility] with chest pain Patient reports that he has been endorsing continued chest pain of 1 week duration, it become worse yesterday so he went to [facility]. Associated with diaphoresis, feels like a pressure, 5 out of 10, no radiation. Patient has a brother that with heart attack at the age of 42, mother at age of 47, at [facility] patient echo showed heart failure with [...] Value Ventricular Rate 77 Atrial Rate 77 DE Interval 186 QRS DURATION 102 QT Interval 422 QTC CALCULATION(BAZETT) 477 P [place] 51 R-[place] 34 T Wave [place] 54 Impression Sinus rhythm with occasional Premature [...] failure with reduced ejection fraction, EF at [facility] 15 to 20% on 10/01/2024 Tobacco [...] least in part, completed using a voice child nurse system. Every effort was made to ensure accuracy. However, inadvertent computerized child nurse errors may be present. Vic Montero PGY-2, internal medicine resident [facility] Normal [facility] HEMOGLOBIN A1Con 10-02-2024 Glucose [Mass/Vol] 148 mg/dL Normal [facility] Comment on above: Performed By: #### L [id number] #### [facility] ([facility]) [address] [place] [address] HbA1c (Bld) [Mass fraction] 6.8 % High 4.0-6.0 [facility] Comment on above: Performed By: #### L [id number] #### [facility] ([facility]) [address] [place] [address] HIGH SENSITIVITY TROPONIN Io n 10-02-2024 HS TROPONIN I (NG/L) 8 ng/L Normal <20 [facility] Comment on above: Performed By: #### L [id number] #### [facility] ([facility]) [address] [place] [address] HS TROPONIN I (NG/L) 10 ng/L Normal <20 [facility] Comment on above: Performed By: #### L [id number] #### [facility] ([facility]) [address] [place] [address] HS TROPONIN I (NG/L) 11 ng/L Normal <20 [facility] Comment on above: Performed By: #### L [id number] ####[facility] ([facility])[address] [place] [address] HS TROPONIN I (NG/L) 10 ng/L Normal <20 [facility] Comment on above: Performed By: #### L [id number] #### [facility] ([facility]) [address] [place] [address] HPon 10-02-2024 HP H&P reviewed. The patient was examined and there are no changes to the H&P. Proceed with coronary angiogram for unstable angina Normal [facility] LIPID PANELon 10-02-2024 CHOL/HDL 10.0 mg/dL Normal [facility] Comment on above: Performed By: #### L [id number] #### [facility] ([facility]) [address] [place] [address] Cholesterol [Mass/Vol] 211 mg/dL High 120-200 [facility] Comment on above: Performed By: #### L [id number] #### [facility] ([facility]) [address] [place] [address] Magnesium [Mass/Vol] 132 mg/dL Normal <150 [facility] Comment on above: Result Comment: TRIG LYCERIDE REFERENCE RANGE: 20 YEARS AND OLDER CARDIOVASCULAR RISK LESS THAN 150 mg/dL LOW RISK 150 TO 199 mg/dL BORDERLINE RISK 200 mg/dL AND GREATER HIGH RISK Performed By: #### L [id number] #### [facility] ([facility]) [address] [place] [address] Magnesium [Mass/Vol] 164 mg/dL High 0-160 [facility] Comment on above: Performed By: #### L [id number] #### [facility] ([facility]) [address] [place] [address] Magnesium [Mass/Vol] 21 mg/dL Low 23-92 [facility] Comment on above: Performed By: #### L [id number] #### [facility] ([facility]) [address] [place] [address] NON HDL CHOL. (LDL+VLDL) [address] [facility] Comment on above: Performed By: #### L [id number] #### [facility] ([facility]) [address] [place] [address] TOTAL VLDL-C 26 mg/dL Normal 0-40 [facility] Comment on above: Performed By: #### L [id number] #### [facility] ([facility]) [address] [place] [address] PLATELET COUNTon 10-02-2024 PLATELETS (10*3/UL) IN BLOOD AUTOMATED COUNT 194 10*3/uL Normal 150-400 [facility] Comment on above: Performed By: #### L [id number] #### [facility] ([facility]) [address] [place] [address] PLATELETS (10*3/UL) IN BLOOD AUTOMATED COUNT 198 10*3/uL Normal 150-400 [facility] Comment on above: Performed By: #### L [id number] ####[facility] ([facility])[address] [place] [address] TSH3 REFLEX TO FT4on 025 THYROTROPIN (MIU/L) IN SER/PLAS BY DETECTION LIMIT <= 0.05 MIU/L 3.25 mIU/L Normal 0.34-5.60 [facility] Comment on above: Performed By: #### L [id number] ####[facility] ([facility])[address] [place] [address] COVID-19 Antigenon 1 COVID-19 Antigen Reason for [...] its performance Ed Disclaimer characteristic determined by [employer] and Ed Disclaimer validated at [facility]. This Ed Disclaimer test has not been [...] is terminated or revoked sooner. PERFORMED BY: [place] [phone] PATHOLOGIST FIBERGLASS ROLLER PATTI DE M.D. Normal [facility] Comment on above: Performed By: #### S NATALYA COVID-19 ED #### [address] Ed Ag Negativeon 01-26-20 21 Ed Ag Negative Negative Normal Negative [facility] Comment on above: Result Comment: This is a duplicate Ed SARS Antigen (SYED) result to be used for statistical tracking purpose only. PERFORMED BY: [phone] PATHOLOGIST FIBERGLASS ROLLER PATTI DE M.D. Performed By: #### S NATALYA COVID-19 ED #### [address] Complete Blood Count Auto Di ffon 10-26-2020 Basophils (Bld) [#/Vol] 0.1 10*3/uL Normal 0.0-0.2 [facility] Comment on above: Order Comment: Reaso n for Exam Essential hypertension Result Comment: PERF ORMED BY: [place] [address] PATHOLOGIST FIBERGLASS ROLLER PATTI DE M.D. Performed By: #### V [id number], CMP, CBC, LIPID #### [address] Basophils/100 WBC (Bld) 1.0 % Normal . [facility] Comment on above: Order Comment: Reaso n for Exam Essential hypertension Performed By: #### V [id number], CMP, CBC, LIPID #### [facility] [address] [place] [address] [place] Eosinophils (Bld) [#/Vol] 0.4 10*3/uL Normal 0.0-0.45 [facility] Comment on above: Order Comment: Reaso n for Exam Essential hypertension Performed By: #### V [id number], CMP, CBC, LIPID #### [facility] [address] [place] [address] [place] Eosinophils/100 WBC (Bld) 4.7 % Normal . [facility] Comment on above: Order Comment: Reaso n for Exam Essential hypertension Performed By: #### V [id number], CMP, CBC, LIPID #### [address] Erythrocyte distribution width (RBC) [Ratio] 14.0 % Normal 12.0-14.8 [facility] Comment on above: Order Comment: Reaso n for Exam Essential hypertension Performed By: #### V [id number], CMP, CBC, LIPID #### [address] Hematocrit (Bld) [Volume fraction] 47.4 % Normal 38.8-50.0 [facility] Comment on above: Order Comment: Reaso n for Exam Essential hypertension Performed By: #### V [id number], CMP, CBC, LIPID #### [address] Hemoglobin (Bld) [Mass/Vol] 16.3 g/dL Normal 13.0-17.0 [facility] Comment on above: Order Comment: Reaso n for Exam Essential hypertension Performed By: #### V [id number], CMP, CBC, LIPID #### [place] [address] [place] Lymphocytes (Bld) [#/Vol] 2.3 10*3/uL Normal 1.00-4.8 [facility] Comment on above: Order Comment: Reaso n for Exam Essential hypertension Performed By: #### V [id number], CMP, CBC, LIPID #### [place] [address] [place] Lymphocytes/100 WBC (Bld) 26.7 % Normal . [facility] Comment on above: Order Comment: Reaso n for Exam Essential hypertension Performed By: #### V [id number], CMP, CBC, LIPID #### [facility] [address] [place] [address] MCH (RBC) [Entitic mass] 30.8 pg Normal 27.5-35.2 [facility] Comment on above: Order Comment: Reaso n for Exam Essential hypertension Performed By: #### V [id number], CMP, CBC, LIPID #### [facility] [address] [place] [address] MCV (RBC) [Entitic vol] 89.7 fL Normal 83.5-101 [facility] Comment on above: Order Comment: Reaso n for Exam Essential hypertension Performed By: #### V [id number], CMP, CBC, LIPID #### [facility] [address] [place] [address] Mean Corpuscular HGB Conc 34.4 g/dL Normal 32.5-35.6 [facility] Comment on above: Order Comment: Reaso n for Exam Essential hypertension Performed By: #### V [id number], CMP, CBC, LIPID #### [facility] [address] [place] [address] Monocytes (Bld) [#/Vol] 0.9 10*3/uL High 0.0-0.8 [facility] Comment on above: Order Comment: Reaso n for Exam Essential hypertension Performed By: #### V [id number], CMP, CBC, LIPID #### [facility] [address] [place] [address] Monocytes/100 WBC (Bld) 10.4 % Normal . [facility] Comment on above: Order Comment: Reaso n for Exam Essential hypertension Performed By: #### V [id number], CMP, CBC, LIPID #### [facility] [address] [place] [address] Neutrophils (Bld) [#/Vol] 5.0 10*3/uL Normal 1.8-7.7 [facility] Comment on above: Order Comment: Reaso n for Exam Essential hypertension Performed By: #### V [id number], CMP, CBC, LIPID #### [facility] [address] [place] [address] [place] Neutrophils/100 WBC (Bld) 57.2 % Normal . [facility] Comment on above: Order Comment: Reaso n for Exam Essential hypertension Performed By: #### V [id number], CMP, CBC, LIPID #### [facility] [address] [place] [address] [place] Nucleated RBC/100 WBC (Bld) [Ratio] 0.1 % Normal 0-0.5 [facility] Comment on above: Order Comment: Reaso n for Exam Essential hypertension Performed By: #### V [id number], CMP, CBC, LIPID #### [facility] [address] Platelet mean volume (Bld) [Entitic vol] 11.0 fL High 6.6-10.1 [facility] Comment on above: Order Comment: Reaso n for Exam Essential hypertension Performed By: #### V [id number], CMP, CBC, LIPID #### [facility] [address] [place] [address] [place] Platelets (Bld) [#/Vol] 159 10*3/uL Normal 150-450 [facility] Comment on above: Order Comment: Reaso n for Exam Essential hypertension Performed By: #### V [id number], CMP, CBC, LIPID #### [facility] [address] [place] [address] [place] RBC (Bld) [#/Vol] 5.29 10*6/uL Normal 3.90-5.60 [facility] Comment on above: Order Comment: Reaso n for Exam Essential hypertension Performed By: #### V [id number], CMP, CBC, LIPID #### [facility] [address] [place] [address] [place] WBC (Bld) [#/Vol] 8.8 10*3/uL Normal 4.5-11.0 [facility] Comment on above: Order Comment: Reaso n for Exam Essential hypertension Performed By: #### V [id number], CMP, CBC, LIPID #### [facility] [address] [place] [address] [facility] Comprehensive Metabolic Pane davi 10-26-2020 Albumin [Mass/Vol] 3.9 g/dL Normal 3.2-5.5 [facility] Comment on above: Order Comment: PT FA STED 11 HRS Reason for Exam Essential hypertension Reason for Exam Essential hypertension;Vitamin D deficiency Performed By: #### V [id number], CMP, CBC, LIPID #### [facility] [address] [place] [address] [facility] Albumin/Globulin [Mass ratio] 1.6 {ratio} Normal [facility] Comment on above: Order Comment: PT FA STED 11 HRS Reason for Exam Essential hypertension Reason for Exam Essential hypertension;Vitamin D deficiency Performed By: #### V [id number], CMP, CBC, LIPID #### [facility] [address] [place] [address] [facility] ALP [Catalytic activity/Vol] 75 U/L Normal 32-92 [facility] Comment on above: Order Comment: PT FA STED 11 HRS Reason for Exam Essential hypertension Reason for Exam Essential hypertension;Vitamin D deficiency Performed By: #### V [id number], CMP, CBC, LIPID #### [facility] [address] [place] [address] [place] ALT [Catalytic activity/Vol] 40 U/L Normal 10-60 [facility] Comment on above: Order Comment: PT FA STED 11 HRS Reason for Exam Essential hypertension Reason for Exam Essential hypertension;Vitamin D deficiency Performed By: #### V [id number], CMP, CBC, LIPID #### [facility] [address] [place] [address] [place] AST [Catalytic activity/Vol] 23 U/L Normal 10-42 [facility] Comment on above: Order Comment: PT FA STED 11 HRS Reason for Exam Essential hypertension Reason for Exam Essential hypertension;Vitamin D deficiency Performed By: #### V [id number], CMP, CBC, LIPID #### [facility] [address] [place] [address] [place] Bilirubin [Mass/Vol] 0.5 mg/dL Normal 0.3-1.2 [facility] Comment on above: Order Comment: PT FA STED 11 HRS Reason for Exam Essential hypertension Reason for Exam Essential hypertension;Vitamin D deficiency Performed By: #### V [id number], CMP, CBC, LIPID #### [facility] [address] [place] [id number] [place] Calcium [Mass/Vol] 9.3 mg/dL Normal 8.2-10.2 [facility] Comment on above: Order Comment: PT FA STED 11 HRS Reason for Exam Essential hypertension Reason for Exam Essential hypertension;Vitamin D deficiency Performed By: #### V [id number], CMP, CBC, LIPID #### [facility] [address] Chloride [Moles/Vol] 102 mmol/L Normal 95-114 [facility] Comment on above: Order Comment: PT FA STED 11 HRS Reason for Exam Essential hypertension Reason for Exam Essential hypertension;Vitamin D deficiency Performed By: #### V [id number], CMP, CBC, LIPID #### [facility] [address] CO2 [Moles/Vol] 27.8 mmol/L Normal 22.0-30.0 [facility] Comment on above: Order Comment: PT FA STED 11 HRS Reason for Exam Essential hypertension Reason for Exam Essential hypertension;Vitamin D deficiency Performed By: #### V [id number], CMP, CBC, LIPID #### [facility] [address] [place] [id number] [facility] Creatinine [Mass/Vol] 1.17 mg/dL Normal 0.64-1.27 [facility] Comment on above: Order Comment: PT FA STED 11 HRS Reason for Exam Essential hypertension Reason for Exam Essential hypertension;Vitamin D deficiency Performed By: #### V [id number], CMP, CBC, LIPID #### [facility] [address] [place] [id number] [place] Estimated GFR ( Henny > 60 Normal [facility] Comment on above: Order Comment: PT FA STED 11 HRS Reason for Exam Essential hypertension Reason for Exam Essential hypertension;Vitamin D deficiency Result Comment: GFR estimated reference range: According to KDOQI guidelines, <60 ml/min/1.73m2 is sufficient to diagnose a patient with chronic kidney disease. Performed By: #### V [id number], CMP, CBC, LIPID #### [facility] [address] Estimated GFR (Non- Am > 60 Normal [facility] Comment on above: Order Comment: PT FA STED 11 HRS Reason for Exam Essential hypertension Reason for Exam Essential hypertension;Vitamin D deficiency Performed By: #### V [id number], CMP, CBC, LIPID #### [facility] [address] [place] [id number] [facility] Globulin (S) [Mass/Vol] 2.5 g/dL Normal [facility] Comment on above: Order Comment: PT FA STED 11 HRS Reason for Exam Essential hypertension Reason for Exam Essential hypertension;Vitamin D deficiency Performed By: #### V [id number], CMP, CBC, LIPID #### [facility] [address] Glucose [Mass/Vol] 114 mg/dL High 70-100 [facility] Comment on above: Order Comment: PT FA STED 11 HRS Reason for Exam Essential hypertension Reason for Exam Essential hypertension;Vitamin D deficiency Result Comment: [facility] Glucose Reference Range is dependent on time and content of last meal. Glucose of more than 200 mg/dL in a nonstressed, ambulatory subject supports the diagnosis of Diabetes Mellitus. ADA recommended reference range Performed By: #### V [id number], CMP, CBC, LIPID #### [facility] [address] Potassium [Moles/Vol] 3.8 mmol/L Normal 3.5-5.1 [facility] Comment on above: Order Comment: PT FA STED 11 HRS Reason for Exam Essential hypertension Reason for Exam Essential hypertension;Vitamin D deficiency Performed By: #### V [id number], CMP, CBC, LIPID #### [facility] [address] [place] [id number] [facility] Protein [Mass/Vol] 6.4 g/dL Normal 6.1-7.9 [facility] Comment on above: Order Comment: PT FA STED 11 HRS Reason for Exam Essential hypertension Reason for Exam Essential hypertension;Vitamin D deficiency Performed By: #### V [id number], CMP, CBC, LIPID #### [facility] [address] Sodium [Moles/Vol] 137 mmol/L Normal 136-146 [facility] Comment on above: Order Comment: PT FA STED 11 HRS Reason for Exam Essential hypertension Reason for Exam Essential hypertension;Vitamin D deficiency Performed By: #### V [id number], CMP, CBC, LIPID #### [facility] [address] [place] [id number] [facility] Urea nitrogen [Mass/Vol] 15 mg/dL Normal 9-23 [facility] Comment on above: Order Comment: PT FA STED 11 HRS Reason for Exam Essential hypertension Reason for Exam Essential hypertension;Vitamin D deficiency Performed By: #### V [id number], CMP, CBC, LIPID #### [facility] [address] Lipid Panelon 10-26-2020 Cholesterol [Mass/Vol] 205 mg/dL High 140-200 [facility] Comment on above: Order Comment: PT FA STED 11 HRS Reason for Exam Essential hypertension Reason for Exam Essential hypertension;Vitamin D deficiency Result Comment: Chol less than 200 mg/dl low risk Chol 201-239 mg/dl borderline risk Chol 240 mg/dl and greater high risk Performed By: #### V [id number], CMP, CBC, LIPID #### [facility] [address] Cholesterol in HDL [Mass/Vol] 24 mg/dL Low 29-71 [facility] Comment on above: Order Comment: PT FA STED 11 HRS Reason for Exam Essential hypertension Reason for Exam Essential hypertension;Vitamin D deficiency Result Comment: HDL CHOL ATP-III CLASSIFICATION Cardiovascular Risk HDL > or equal to 60 mg/dL LOW HDL < 40 mg/dL HIGH Performed By: #### V [id number], CMP, CBC, LIPID #### [facility] [address] [place] [id number] [facility] Cholesterol.total/Ch olesterol in HDL [Mass ratio] 8.5 {ratio} Normal <5.0 [facility] Comment on above: Order Comment: PT FA STED 11 HRS Reason for Exam Essential hypertension Reason for Exam Essential hypertension;Vitamin D deficiency Performed By: #### V [id number], CMP, CBC, LIPID #### [facility] [address] LDL Cholesterol,Calculat ed 131 mg/dL High 0-100 [facility] Comment on above: Order Comment: PT FA STED 11 HRS Reason for Exam Essential hypertension Reason for Exam Essential hypertension;Vitamin D deficiency Result Comment: LDL ATP III CLASSIFICATION LDL less than 100 mg/dL Optimal LDL 100-129 mg/dL Near or above optimal LDL 130-159 mg/dL Borderline high LDL 160-189 mg/dL High LDL greater than 189 mg/dL Very high Performed By: #### V [id number], CMP, CBC, LIPID #### [facility] [address] Triglyceride w/Reflex 248 mg/dL High 35-149 [facility] Comment on above: Order Comment: PT FA [...] (CDC) test method. Performed By: #### V [id number], CMP, CBC, LIPID #### [facility] [address] VLDL CHOLESTEROL 49 mg/dL Normal [facility] Comment on above: Order Comment: PT FA STED 11 HRS Reason for Exam Essential hypertension Reason for Exam Essential hypertension;Vitamin D deficiency Performed By: #### V [id number], CMP, CBC, LIPID #### [facility] [address] Vitamin D 25 Hydroxy Totalon 10-26-2020 Vitamin D 25 Hydroxy Total 50.8 ng/mL Normal 30-100 [facility] Comment on above: Order Comment: PT FA [...] practice guideline. JCEM. 2010; 96(7):1911-30. PERFORMED BY: [facility] [address] [place] [address] PATHOLOGIST FIBERGLASS ROLLER PATTI DE M.D. Performed By: #### V [id number], CMP, CBC, LIPID #### [facility] [address] Encounters Encounter Date Encounter Type Care Provider Facility Start: 01-03-[address] [facility] Start: 12-27-2024 End: 12-27-2024 ambulatory [facility] Start: 12-02-[address] [facility] Start: 11-20-2024 ambulatory [facility] Start: 11-20-2024 End: 11-20-2024 ambulatory [facility] Start: 10-17-2024 ambulatory [facility] Start: 10-17-2024 Encounter for other preprocedural examination [facility] Start: 10-11-2024 End: 10-11-2024 ambulatory [facility] Start: 10-04-2024 End: 10-04-20[facility]: 10-04-2024 Evaluation and manag ement of inpatient NIDA Thomson [facility] Start: 10-04-2024 Evaluation and manag ement of inpatient DNAA YU [facility] Start: 10-03-2024 Evaluation and manag ement of inpatient NIDA Thomson [facility] Start: 10-02-2024 End: 10-04-2024 Evaluation and management of inpatient MERRILL HERNÁNDEZ [facility] Payers Date Payer Category Payer Unknown [id number] Clinical Notes 10-02-2024 to 01-03-2025 Note Date & Type Note Facility 01-03-2025 Note CARDIOLOGY PHARMACIS T VISIT - HEART FAILURE TELEPHONE (AUDIO ONLY) CONSULT Referring Provider: Dr. Keene/Dr. Waldron Clinic Location: [facility] Most recent cardiology visit: 12/27/24 Insurance: Commercial Approximate Date of HF Diagnosis: 09/2024 SUBJECTIVE/OBJECTIVE Magaly Yung is a 49 y.o. male contacted for HF management. Patient has HFimpEF. Patient's PMH includes Problem List[1] Patient hospitalized for NSTEMI in early September 2024. At that time it was also determined he had HFrEF with EF of 30%. He was started on HF GDMT and recently had echo completed which showed EF of 55%. He saw Dr. Waldron at [place] location about a week ago. Patient reports he is feeling very well with no SOB, dyspnea on exertion, swelling. He does report he had updated lab work completed by PCP which showed A1C diagnosis and also his PCP stop spironolactone (unclear reasoning why this occurred). Since CV event, he has been working to make lifestyle changes which include walking 1-2 miles per day, reducing carbs in his diet, and cutting out all surgary beverages. He also quite using tobacco cold turkey following hospitalization (25 year use) and stopped drinking alcohol as well. HF Management : HFimpEF (Previously EF <= 40%, now EF > 40% and improved by >=10%) Last TTE: EF 55 % (11/2024) GDMT (Guideline-Directed Medical Therapy): HFrEF: [x] ARNI / ACEi / ARB (Lisinopril 20 mg daily (target dose 20 to 40 mg once daily)) [x] Beta-stefan (Carvedilol 20 mg BID (target dose 25 mg BID for weight <85 kg and 50 mg BID for weight >85 kg)) [] MRA (was previously taking spironolactone, but was stopped by PCP) [x] SGLT2 inhibitor (Farxiga 10 mg daily) [] Diuretic (as needed for congestion) (furosemide 20mg bid) [] Hydralazine/Isosorbide (persistently symptomatic -[place] patients despite GDMT, NYHA class III-IV) Adherence: No missed doses Current home BP readings: Check BP at home; running in the 110s/60s Symptoms: None Last Clinic Vitals: BP Readings from Last 1 Encounters: 12/27/24 132/74 Estimated body mass index is 38.39 kg/m??? as calculated from the following: Height as of 12/27/24: 1.88 m (6' 2 ). Weight as of 12/27/24: 136 kg (299 lb). Pertinent Labs (date) [...] 164 (H) 10/02/2024 TRIG 132 10/02/2024 ASSESSMENT HFimpEF (30% > 55%): Currently on lisinopril 20mg daily, carvedilol 25mg BID, and Farxiga 10mg daily. Denies s/sx of hypertension or hypotension. Previously was on spironolactone which was stopped by PCP with unclear reasoning. Given he had HFrEF, it is recommended he stay on GDMT despite his EF improving to > 40% to maintain appropriate heart function. -For now, continue lisinopril, carvedilol, and Farxiga - Will send message to Dr. Waldron re: spironolactone. Patient reports he does have a 90 day supply at home if he needs to restart Follow-up: not scheduled Next Cardiology Provider Visit: 03/2025 Time Spent: 20 minutes total with 15 minutes spent in medical discussion with patient. PATIENT VERBALIZED UNDERSTANDING OF CARE PLAN: Yes PATIENT ADVISED TO CALL BACK WITH QUESTIONS, CONCERNS, OR CHANGE IN SYMPTOMS. Patient verbalized understanding of consult agreement between physician and PharmD: Yes Taco Spence, MynorD, BCACP [facility] 01/03/25 [1] Patient Active Problem List Diagnosis NSTEMI (non-ST elevated myocardial infarction) ([facility]) Primary hypertension HFrEF (heart failure with reduced ejection fraction) (CMS/HCC) Obesity Tobacco use disorder Multi-vessel coronary artery stenosis Hyperlipidemia Coronary artery disease S/P coronary artery stent placement [facility] 01-03-2025 Note Spoke with PCP offic e - patient had labs completed on 12/25 which showed Scr 1.7 and eGFR 43 (they are faxing labs to us). From there the PCP made spironolactone PRN for swelling?? This Scr is slightly elevated from previous (~1.3) My suggestion would be for patient to have BMP recompleted and restart spironolactone as long as Scr looks ok. Let me know your thoughts. Thanks! [facility] 01-03-[address] Marilu cheung. She would is ok with patient to continue off spironolactone. Spoke with patient and provided update. Patient verbalized understanding. Next appointment with Dr. Waldron is in March. Celine Levy, PharmD [facility] 01/16/25 [facility] 12-27-2024 Note [place] [facility] Note Reason for cardiology visit: Follow-up on coronary artery disease, ischemic cardiomyopathy and chronic heart failure, hypertension, and hyperlipidemia HPI: 12/27/2024 Patient is here today for follow-up visit. He states that he has been doing great. Denies any chest pain or shortness of breath at rest or with exertion. Denies orthopnea or paroxysmal nocturnal dyspnea or dizziness or palpitations. He denies legs edema or discomfort on exertion He walks almost 1 hour every day and when he goes to [place] with his family he walks about 4 hours without any problem. He quit smoking totally on 09/22/2024. No alcohol or illicit drugs 10/11/2024 Magaly Yung is a 49 y.o. male who presented 09/30/2024 to [facility] with chest pain of 3 days duration associated with worsening shortness of breath, he was severely hypertensive on arrival and BNP was elevated. His echo showed ejection fraction of 15 to 20%. He was sent to [facility] for cardiac catheterization performed 10/02/2024 and showed [...] infarction (CMS/HCC), NSTEMI (non-ST elevated myocardial infarction) (CMS/HCC), Obesity, and Pulmonary edema. Surgical History He has a past surgical history that includes Cardiac catheterization (10/02/2024) and Coronary stent placement. Social History He reports that he has quit smoking. His smoking use included cigarettes. His smokeless tobacco use includes chew. He reports that he does not currently use alcohol. He reports that he does not use drugs. Family History Family History Problem Relation Name Age of Onset Coronary artery disease Mother 45 Coronary artery disease Brother 42 Allergies Penicillins Medications Current Outpatient Medications: aspirin 81 mg chewable tablet, Chew 1 tablet (81 mg) in the morning for 360 doses., Disp: 90 tablet, Rfl: 3 atorvastatin (Lipitor) 40 mg tablet, Take 2 tablets (80 mg) by mouth at bedtime., Disp: 90 tablet, Rfl: 3 carvedilol (Coreg) 25 mg tablet, Take 1 tablet (25 mg) by mouth two times daily for 720 doses., Disp: 180 tablet, Rfl: 3 clopidogrel (Plavix) 75 mg tablet, Take 1 tablet (75 mg) by mouth in the morning., Disp: 90 tablet, Rfl: 3 dapagliflozin propanediol (Farxiga) 10 mg, Take 1 tablet (10 mg) by mouth in the morning for 360 doses., Disp: 90 tablet, Rfl: 3 furosemide (Lasix) 40 mg tablet, Take 1 tablet (40 mg) by mouth two times daily., Disp: 180 tablet, Rfl: 2 glimepiride (Amaryl) 2 mg tablet, Take 2 mg by mouth before breakfast., Disp: , Rfl: isosorbide mononitrate ER (Imdur) 30 mg 24 hr tablet, Take 1 tablet (30 mg) by mouth in the morning for 360 doses. Do not crush or chew., Disp: 90 tablet, Rfl: 3 lisinopril 20 mg tablet, Take 1 tablet (20 mg) by mouth in the morning for 360 doses., Disp: 90 tablet, Rfl: 3 spironolactone (Aldactone) 25 mg tablet, Take 1 tablet (25 mg) by mouth in the morning for 360 doses. (Patient taking differently: Take 25 mg by mouth if needed. As needed for swelling), Disp: 90 tablet, Rfl: 3 Last Recorded Vitals Visit Vitals BP 132/74 (BP Location: Left arm, Patient Position: Sitting) Pulse 66 Ht 1.88 m (6' 2 ) Wt 136 kg (299 lb) SpO2 95% BMI 38.39 kg/m??? Smoking Status Former BSA [...] NEURO: strength/sensation equal and symmetric in bilateral up (more content not included)... [facility] 12-02-2024 Note CARDIOLOGY PHARMACIS T VISIT - HEART FAILURE TELEPHONE (AUDIO ONLY) CONSULT Referring Provider: Dr. Keene/ Dr. Waldron Clinic Location: [facility] Most recent cardiology visit: 10/11/24 Insurance: Commercial [...] congestion) (furosemide 40mg) [] Hydralazine/Isosorbide (persistently symptomatic -[place] patients despite GDMT, NYHA class III-IV) Adherence: [...] agreement between physician and PharmD: Yes Taco Spence, PharmD, BCACP [facility] 12/10/24 [1] Patient Active Problem List Diagnosis NSTEMI (non-ST elevated myocardial infarction) ([facility]) Primary hypertension HFrEF (heart failure with reduced ejection fraction) ([facility]) Obesity Tobacco use disorder Multi-vessel coronary artery stenosis Hyperlipidemia Coronary artery disease involving [place] coronary artery of [place] heart with unstable angina pectoris ([facility]) S/P coronary artery stent placement [facility] 11-20-2024 Note Spoke with patient a nd scheduled for visit on 12/02 at 2pm. Patient does live in [place] and is seen at the [facility], so will need to do telemedicine with him. Taco Spence, MynorD, BCACP [facility] 11/25/24 [facility] 11-20-2024 Note PHARMD CARDIOLOGY CO NSULT - NEW CONSULT 11/20/24 Referring Provider: Dr. Keene Clinic: [facility] Cardiology-- saw outpatient cardiology at Cardiology Magaly Yung is referred to clinic pharmacists for GLP initiation and lipid management (hx of CAD, HTN, HLD, HFrEF, obesity, LDL goal < 55). Electronic order received from patient's cardiology provider. Will call patient to schedule. Celine Levy, MynorD [facility] 11-20-2024 Note Cardiology I placed referral order to [place] cardi[place] pharmacist to help with lipid management [...] in outpatient follow up Mikael Keene MD engagement director Interventional Cardiology [place] [facility] Pager: [phone] Diagnosis Plan 1. HFrEF (heart failure with reduced ejection fraction) ([facility]) Ambulatory referral to Cardiology Pharmacist 2. Multi-vessel coronary artery stenosis Ambulatory referral to Cardiology Pharmacist 3. Coronary artery disease involving [place] coronary artery of [place] heart with unstable angina pectoris ([facility]) Ambulatory referral to Cardiology Pharmacist 4. Primary hypertension Ambulatory referral to Cardiology Pharmacist 5. Tobacco use disorder Ambulatory referral to Cardiology Pharmacist 6. Class 2 severe obesity due to excess calories with serious comorbidity and body mass index (BMI) of 39.0 to 39.9 in adult ([facility]) Ambulatory referral to Cardiology Pharmacist 7. Mixed hyperlipidemia Ambulatory referral to Cardiology Pharmacist 8. S/P coronary artery stent placement Ambulatory referral to Cardiology Pharmacist [facility] 11-20-2024 Note Patient: Magaly prakash Procedure Information Date/Time: 11/20/24 1030 Procedures: Coronary angiography - PC Approved 10/30-11/28 Percutaneous coronary intervention Location: [facility] INSTRUMENT [employer]SEM[employer]PER[employer] 3 / [facility] (Cath) Providers: Mikael Keene MD Clinical information reviewed: Allergies Meds Physical Exam Airway Mallampati: III TM distance: <3 FB Cardiovascular Rhythm: regular Rate: normal Dental Pulmonary Abdominal Anesthesia Plan ASA 3 other (Conscious ) Anesthetic plan and risks discussed with patient. Use of blood products discussed with patient who consented to blood products. Plan discussed with attending. Additional Equipment Requests [facility] 10-28-2024 Note Cardiology I had heart [...] Diagnosis Plan 1. Primary hypertension Case Request Telecommunications Consultant: Coronary angiography, Percutaneous coronary intervention 2. Multi-vessel coronary artery stenosis Case Request Telecommunications Consultant: Coronary angiography, Percutaneous coronary intervention 3. HFrEF (heart failure with reduced ejection fraction) ([facility]) Case Request Telecommunications Consultant: Coronary angiography, Percutaneous coronary intervention 4. Coronary artery disease of [place] artery of [place] heart with stable angina pectoris 5. Tobacco use disorder Case Request Telecommunications Consultant: Coronary angiography, Percutaneous coronary intervention 6. Mixed hyperlipidemia Case Request Telecommunications Consultant: Coronary angiography, Percutaneous coronary intervention 7. Class 2 severe obesity due to excess calories with serious comorbidity and body mass index (BMI) of 39.0 to 39.9 in adult ([facility]) Case Request Telecommunications Consultant: Coronary angiography, Percutaneous coronary intervention 8. Coronary artery disease involving [place] coronary artery of [place] heart with unstable angina pectoris ([facility]) Case Request Telecommunications Consultant: Coronary angiography, Percutaneous coronary intervention Lab on [...] Bilirubin, Urine 10/17/2024 Negative Negative Final Specific [place], Urine 10/17/2024 1.015 1.010 - 1.030 Final [...] eGFR 10/17/2024 65.8 >60.0 mL/min/1.73m*[address] [facility]???s estimated glomerular filtration rate (eGFR) will [...] RANGE. CHEST 1995;[id number] (more content not included)... [facility] 10-11-2024 Note [facility] Note Reason for cardiology visit: Follow-up on coronary artery disease, ischemic cardiomyopathy and chronic heart failure, hypertension, and hyperlipidemia HPI: Magaly Yung is a 49 y.o. male who presented 09/30/2024 to [facility] with chest pain of 3 days duration associated with worsening shortness of breath, he was severely hypertensive on arrival and BNP was elevated. His echo showed ejection fraction of 15 to 20%. He was sent to [facility] for cardiac catheterization performed 10/02/2024 and showed [...] infarction (CMS/HCC), NSTEMI (non-ST elevated myocardial infarction) (CMS/HCC), Obesity, and Pulmonary edema. Surgical History He [...] 211 (H) 10/03/19 (more content not included)... [facility] 10-04-2024 Note Hospital Medicine Discharge Summary Final Discharge Diagnosis: Severe multivessel coronary artery disease Acute decompensated systolic heart failure with reduced ejection fraction, NYHA class II Tobacco use disorder Essential hypertension Mixed hyperlipidemia Class II obesity Admission Diagnosis: NSTEMI (non-ST elevated myocardial infarction) ([facility]) [I21.4] Hospital course: Magaly Yung is an 49 y.o. ld white male admitted from [facility] as a direct transfer where he presented with intermittent chest pains described as anterior chest dull to pressure-like associated with dyspnea radiating to left pain started a week back pain unrelated to activity but 4 days back got worse so he decided to go to the ER where he was admitted to [facility]. Patient denies any history of hypertension [...] to tobacco use his BNP done at [facility] was 448 BUN was 15.9 creatinine [...] Center 10/11/2024 2:40 PM Essence Waldron MD [facility] Your medication list START taking these [...] Medications These medications were sent to [facility] - [place], [place] - [address], [facility] [id number] aspirin 81 mg chewable tablet atorvastatin 40 [...] last 7 days Lab Units 10/03/24 0418 10/02/241952 (more content not included)... [facility] 10-04-2024 Note Stop bang score of 3 , Sleep referral ordered for OP [facility] 10-04-2024 Note Cardiothoracic Surge ry Progress Note 10/04/2024 Room: [address] [place] [address] Magaly Yung is a 49 y.o. male with PMH of smoker, obesity, strong family history of CAD who presented to [facility] as a direct transfer where he was experiencing intermittent chest pain, described as anterior chest dull to pressure-like associated with dyspnea radiating to left. [facility] labs remarkable for BNP 448, BUN 15.9, [...] is somewhat limited. He was transferred to [facility] for cardiac catherization. Underwent cardiac cath yesterday [...] is seen f (more content not included)... [facility] 10-04-2024 Note [facility] CARDIOLOGY INPAT IENT [...] no medications at all. 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 10/02/2024 he was transferred from [facility] for non-STEMI with angina and acute heart failure with preserved EF. Complaining of intermittent dull to pressure-like anterior chest discomfort associated with dyspnea radiating to left arm. Over the past 2 months patient had noticed gradually worsening BERNAL and the dull midsternal prssure to left arm then gradually worsening LE edema. At [facility] labs remarkable for BNP 448, BUN 15.9, Creatinine 1.13, High Sensitivity Troponin 25.9, later normalized. Echocardiogram found EF 15-20% with grade 3 LVDD, moderate concentric LVH and global hypokinesis. EKG with sinus rhythm and nonspecific ST-T wave changes. At [facility], [facility] found severe multivessel CAD and CT surgery [...] LDL 190 10/02/2024 No results found for: [id number] , IRON , TIBC , C3 , C4 , TALA , CANCA , ASO , PSA , CEA , CA125 , CA1 (more content not included)... [facility] 10-03-2024 Note Patient has a smokin g history of more than 20 pack [address] a [address] [facility] 10-03-2024 Note S/p cardiac cath 10/02 [facility] 10-03-[address] [facility] 10-03-2024 Note NYHA class II Continue continue IV Lasix Continue lisinopril, Coreg, Aldactone, Farxiga [facility] 10-03-2024 Note Cardiac catheterizat ion 10/02 showed multivessel disease, LVEDP 30 CT surgery consulted for CABG evaluation [facility] 10-03-2024 Note Class II obesity [facility] 10-03-2024 Note Hospital Medicine Daily Progress Note - 10/03/2024 1:24 PM; Room: [facility] Admission: 10/02/2024 1:50 AM; Length of stay: 1 days THE HOSPITALIST TEAM PREFERS TO USE [employer] FOR NON-URGENT COMMUNICATION 7AM-7PM. IF I DO NOT RESPOND WITHIN 20 MINUTES OR URGENT MATTERS, PLEASE CALL THROUGH THE [employer]. FROM 7PM-7AM, PLEASE PAGE [phone](COVR). Code Status: Full Code Barriers to Discharge: [...] Assessment & Plan Coronary artery disease of [place] artery of [place] heart with stable angina pectoris Cardiac catheterization 10/02 showed multivessel disease, LVEDP 30 CT surgery consulted for CABG evaluation NSTEMI (non-ST elevated myocardial infarction) ([facility]) S/p cardiac cath 10/02 Primary hypertension Continue lisinopril. HFrEF (heart failure with reduced ejection fraction) ([facility]) NYHA class II Continue continue IV Lasix [...] LDL 190 10/02/2024 No results found for: [id number] , IRON , TIBC , C3 , C4 , TALA , CANCA , ASO , PSA , CEA , CA125 , CA199 , AFP , CA153 Imaging Pulmonary function testing Consuelo Fernandes, HAO 10/03/2024 12:49 PM Bedside Spirometry uploaded into [employer]. Vascular US lower extremity vein mapping bilateral [...] were evaluated bilaterall (more content not included)... [facility] 10-03-2024 Note Bedside Spirometry u ploaded into [employer]. [facility] 10-03-2024 Note 10/03/24 1200 STOP-Bang Questionnaire [...] - Male 1=Yes STOP-Bang Total Score 3 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 ---- Cardiology Progress Note HPI: Magaly Yung is a 49 y.o. male with insignificant medical history, other than tobacco use disorder for 20 years, presenting from [facility] with chest pain Patient reports that he has been endorsing continued chest pain of 1 week duration, it become worse yesterday so he went to [facility]. Associated with diaphoresis, feels like a pressure, 5 out of 10, no radiation. Patient has a brother that with heart attack at the age of 42, mother at age of 47, at [facility] patient echo showed heart failure with [...] q12h, Rao Garcia MD, 40 mg at 10/03/24223 heparin (porcine) injection 5,000 Units, 5,000 Units, intravenous, Once, Willian Ac MD heparin infusion 100 units/mL in D5W, 0-28 Units/kg/hr, intravenous, Continuous, Willian Ac MD, Last Rate: 22.4 mL/hr at 10/03/24 07, 16 Units/kg/hr at 10/03/24 07 isosorbide mononitrate ER (Imdur) 24 hr tablet 30 mg, 30 mg, oral, Daily, Rao Garcia MD, 30 mg at 10/02/24940 lisinopril tablet 20 mg, 20 mg, oral, Daily, Rao Garcia MD, 20 mg at 10/02/24940 nitroglycerin (Nitrostat) SL tablet 0.4 mg, 0.4 mg, sublingual, q5 min PRN, Rao Garcia MD Oxygen Therapy, , inhalation, Continuous, Rao Garcia MD, Oxygen Off at 10/02/24 0245 spironolactone (Aldactone) tablet 25 mg, 25 mg, oral, Daily, Rao Garcia MD, 25 mg at 10/02/24 09 Objective: Patient Vitals for the past 24 [...] -- 71 15 93 % -- 10/02/24 210 -- -- -- -- -- -- (!) [...] 151/93 -- -- 71 18 -- -- 10/02/24 1600 153/78 -- -- 79 23 96 [...] deficit present. Mental (more content not included)... [facility] 10-02-2024 Note Patient admitted to the hospital for: NSTEMI. Chart echo noted in the admit progress notes, from 09/30/2024 [facility] reports: EF 15-20 %. Current echo report qualifies for Cardiac Rehab services per CMS eligibility criteria. A Cardiac Rehab referral diagnosis and code must also meet CMS criteria. Desiree Tyler RN, BSN Cardiology Outpatient Coordinator Cardiopulmonary Rehab [facility] 10-02-2024 Note Patient: Magaly Yung Procedure Information Date/Time: 10/02/24 1530 Procedures: Coronary angiography Right heart cath Location: [facility] INSTRUMENT ASSEMBLY SUPERVISOR 2 [address] / [facility] (Cath) Providers: Mikael Keene [...] consented to blood products. Additional Equipment Requests [facility] 10-02-2024 Note 10/02/24 1201 Admission Assessment Questions Verify insurance with patient Yes (Anne HAUMADA) Do you understand medical disease or what [...] Status Interested Does the patient have a piano case and bench assembler assigned to them through their insurance? No [...] activate MyChart? No Write sent email to [facility] registration about missing insurance in [employer]. [facility] 10-02-2024 Note Cycle troponin nitra tha [...] EF and NSTEMI anticipate left heart cath [facility] 10-02-2024 Note As above also would recommend outpatient sleep study [facility] 10-02-2024 Note [employer] guideline d irected medical therapy including Coreg lisinopril Aldactone and Farxiga consider changing DAVEY inhibitor to ARNI monitor I's and O's salt restricted diet core CHF measures in place [facility] 10-02-2024 Note We will check trigly cerides/lipid profile if triglycerides below 300 consider GLP-1 inhibitor discussed with patient about diet management dietary consult already in order for CHF and for obesity [facility] 10-02-2024 Note Hospital Medicine History and Physical 10/02/2024 2:45 AM THE HOSPITALIST TEAM PREFERS TO USE [employer] FOR NON-URGENT COMMUNICATION 7AM-7PM. IF I DO NOT RESPOND WITHIN 20 MINUTES OR URGENT MATTERS, PLEASE CALL THROUGH THE [employer]. FROM 7PM-7AM, PLEASE PAGE [phone](COVR). Chief Complaint No chief complaint on file. History of Present Illness Magaly Yung is an 49 y.o. ld white male admitted from [facility] as a direct transfer where he presented with intermittent chest pains described as anterior chest dull to pressure-like associated with dyspnea radiating to left pain started a week back pain unrelated to activity but 4 days back got worse so he decided to go to the ER where he was admitted to [facility]. Patient denies any history of hypertension [...] to tobacco use his BNP done at [facility] was 448 BUN was 15.9 creatinine [...] & Plan NSTEMI (non-ST elevated myocardial infarction) ([facility]) Cycle troponin nitrates Coreg statin aspirin with [...] HFrEF (heart failure with reduced ejection fraction) ([facility]) [employer] guideline directed medical therapy including Coreg [...] care setting f (more content not included)... [facility] Summary Purpose Family History No Family History Records FoundNo Family History Records Found Advance Directives No Advanced Directives Records FoundNo Advanced Directives Records Found Additional Source Comments (unrecognized sect ion and content) No Status Records FoundNo Status Records Found INFORMATION SOURCE (unrecogn ized section and content) DATE CREATED AUTHOR 07/19/2021 [facility] DATE CREATED AUTHOR AUTHOR'S DAVID ROLLINS 02/02/2025 [facility] FOR RECORDS PERTAINING [...] BE BASED ON THE PRIMARY CLINICAL RECORDS. [employer] provides no warranty or guarantee of the accuracy or completeness of information in this document.
[2025-03-29 07:55] LABS: Alanine Aminotransferase 31 U/L (16-63); Aspartate Amino Transferase 16 U/L (15-37); Cholesterol 127 mg/dL (<=200); HDL Cholesterol 28 mg/dL (40-60); Triglycerides 92 mg/dL (<=150); VLDL CHOLESTEROL 18.4 mg/dL
== END 2025-03-29 06:29 | disposition home or self-care (01) ==
PROVIDERS: PCP Family Medicine; Visit Provider Internal Medicine Cardiovascular Disease
DX: I25.10 Atherosclerotic heart disease of native coronary artery without angina pectoris (principal)
CPT/HCPCS: 36415; 80061; 84450; 84460

== ENCOUNTER 2025-04-25 10:27 | Outpatient (OUT) | payer BC, SELFPAY ==
--- OUTSIDE RECORDS SUMMARY | 2014-10-07 12:30 | XMS_ITS | Continuity of Care Document ---
Author Organization [facility] Address [address] [place] [address] Phone Care Team Providers Care Vocational Nursing Instructor Name Role Phone Dhiraj GERBER, [place] Unavailable Unavailable Procedures Procedure Date IMMUNIZATION ADMIN TDAP VACCINE >7 IM IMMUNIZATION ADMIN TDAP VACCINE >7 IM Advance Directives Directive Yes / No Effective Date File Name No Information Encounters Encounter Description Practice Location Reason(s) For Visit Diagnoses Date Provider Providers Copied on Encounter [facility], [address], [place], [id number], [place] tel:[phone] [facility] No Information Dhiraj SALAZAR [place]. [address], [place], [id number], [place]. tel:[phone] Family History Family Member Type Diagnosis Age At Onset No Information Immunizations Vaccine Date Status Comments Tdap administered Source: [facility] unization Record Payers Payer name Insurance type Covered alliance party ID Lesa womack(s) Medical [place] CI [id number] [facility] [place] CI [id number] [place] Benefits CI 43 Social History Type Description Quantity Date Captured Comments Sex Male Smoking Status No Information Chief Complaint And Reason For Visit No Information Reason For Referral Reason For Referral No Information History Of Present Illness Encounter Date Complaint History Of Prese nt Illness No Information Functional Status Date Functional Assessmen t No Information Instructions Date Instruction Additional Infor mation No Information Assessments Type Assessment Date No Information Patient Care Teams Name Effective Dates (start - stop) Status Members No Information
--- OUTSIDE RECORDS SUMMARY | 2024-06-27 08:45 | XMS_ITS ---
Author Organization [facility] es Address [address] [place] [address] Care Team Providers Care Master Fire Control Technician Name Role Phone Nahid Lantigua Primary Care Provider REASON FOR VISIT EST CARE, HOSP F/U; BP Encounters Encounter Location Date Provider Diagnosis [facility] [address] [place] [address] 06/27/2024 Nahid Lantigua Plan Of Treatment No Information Progress Notes * VIVIANA MAGDALENOOB:1975 ( 49 yo M)Acc No.[id number]:06/27/2024 Progress Notes Patient: Rocío REYNA MAGALY :?SHARONDA TaylorOB:1975???Age:48 Y???Sex: MaleDate:06/27/2024Phone:[phone]:[address], UU-[id number] Subjective: * Chief Complaints: * E ST CARE, HOSP F/U; BP * Electronic signature of Nahid Lantigua DO, [id number] on 04/25/2025 at 10:32 AM ESTSign off status: Pending * Provider: Jess Lantigua DO Date: 0 06/27/2024 Generated for Printing/Faxing/eTransmitting on:?04/25/2025 10:32 AM EST
--- OUTSIDE RECORDS SUMMARY | 2024-10-03 06:30 | XMS_ITS ---
Author Organization The [facility] in [place] Address [address] [place] [address] Care Team Providers Care General Milling Superintendent Name Role Phone Guero Hernández Primary Care Provider REASON FOR VISIT TCM d/c TBH 09/30 SOB CHect pain Encounters Encounter Location Date Provider Diagnosis [address] [address] 10/03/2024 Guero Hernández Plan Of Treatment No Information Progress Notes * Benny CARSONOB:1975 ( 49 yo M)Acc No.[id number]:10/03/2024 UNLOCKED PROGRESS NOTE New Patient Patient: Rodrigo BEAR :?Claude GODFREY), [facility]1975???Age: 49 Y???Sex:MaleDate:10/03/2024Phone:[phone]:[address], [place] Subjective: * Chief Complaints: * 1 . TCM d/c TBH 14 SOB CHect pain. * Medical History: Objective: * Vitals: Assessment: Plan: * Treatment: * * Electronic signature of Guero Hernández MD, [id number] on 04/25/2025 at 10:31 AM EST Sign off status: PendingVisit Status:?CANCPHONE (Cancelled Phone) * Provider: Mono Hernández MD (TTC) Date: 0 10/03/2024 Generated for Printing/Faxing/eTransmitting on:?04/25/2025 10:31 AM EST
--- OUTSIDE RECORDS SUMMARY | 2025-01-08 08:15 | XMS_ITS ---
Author Organization [facility] in [place] Address [address] [place] [address] Care Team Providers Care Molder [employer] Name Role Phone Guero Hernández Primary Care Provider REASON FOR VISIT f/u DM Encounters Encounter Location Date Provider Diagnosis [id number] [place] [address] 01/08/2025 Guero Hernández Plan Of Treatment No Information Progress Notes * Benny CARSONOB:1975 ( 49 yo M)Acc No.[id number]:01/08/2025 UNLOCKED PROGRESS NOTE Progress Note Patient: Rodrigo BEAR :?Claude Hernández (GWENDOLYN), MDDOB:1975???Age: 49 Y???Sex:MaleDate:01/08/2025Phone:[phone]:[address] [place], [id number] Subjective: * Chief Complaints: * 1 . f/u DM. * Medical History: Objective: * Vitals: Assessment: Plan: * Treatment: * * Electronic signature of Guero Hernández MD, [id number] on 04/25/2025 at 10:32 AM EST Sign off status: PendingVisit Status:?CANC (Cancelled) * Provider: Mono Hernández MD (TTC) Date: 0 01/08/2025 Generated for Printing/Faxing/eTransmitting on:?04/25/2025 10:32 AM EST
--- OUTSIDE RECORDS SUMMARY | 2025-04-16 10:15 | XMS_ITS ---
Author Organization The [facility] in [place] Address [address] [place] [address] Care Team Providers Care Respiratory Practitioner Name Role Phone Guero Hernández Primary Care Provider Allergies Allergen (clinical drug ingredient) Drug/Non Drug Allergy documented on EMR Reaction Allergy Type Onset Date Status PenicillinanaphylaxisDrug AllergyActive REASON FOR VISIT 3mon, High Blood Pressure Medications Medication SIG (Take, Route, Frequency, Duration) Notes Start Date End Date Status Farxiga 10 MG TAKE 1 TABLET BY MOUTH IN THE MO RNING Oral; Duration: 30 Days ActiveFurosemide 40 MGTAKE 1 TABLET BY MOUTH TWICE DAILY Oral; Duration: 30 Days ActivePlavix 75 MG1 tablet Orally Once a day; Duration: 30 days5Active Glimepiride 2 MG1 tablet with breakfast or the first main meal of the day Orally Once a day; Duration: 30 bxirFPM74/09/2025ActiveIsosorbide Mononitrate ER 30 MG TAKE 2 TABLET BY MOUTH IN THE MORNING. DO NOT CRUSH OR CHEW Oral; Duration: 90 daysActiveAtorvastatin Calcium 80 MG1 tablet Orally Once a day; Duration: 90 daysActiveCarvedilol 25 MGTAKE 1 TABLET BY MOUTH TWICE DAILY Oral; Duration: 90 DaysActiveAspirin Low Dose 81 MGCHEW & SWALLOW 1 TABLET BY MOUTH IN THE MORNING Oral; Duration: 96 DaysActiveLisinopril 20 MGTAKE 2 TABLET BY MOUTH IN THE MORNING Oral; Duration: 90 daysActive Social History Tobacco Use: Social History Observation Description Date Details (start date - stop date) Former Smoker NA - NA Tobacco Control (Standard) Question Answer Notes Tobacco use: Former smoker How long has it been since you last smoked?1-3 monthsAUDIT-C (Standard) Question Answer Notes Did you have a drink containing alcohol in the p ast year? No Jigxjp9ZagxdbnnkobrrbIdomdtwg Vital Signs Weight 296.0 lbs 04/16/2025 Height 74 in 04/16/2025 Blood pressure systolic 232 mm Hg 04/16/20 25 Blood pressure diastolic 110 mm Hg 025 BMI 38 kg/m2 04/16/2025 Encounters Encounter Location Date Provider Diagnosis [facility] [address] [place] [address] 04/16/2025 Guero Hernández Hypertension I10 and Congestive heart failure I50.9 Assessments Encounter Date Diagnosis (ICD Code) Assessment Notes Treatment Notes Treatment Clinical Notes Section Notes 04/16/2025 Hypertension (ICD-10 - I10) keep coreg - and doubet hte lisinopril and jgrsftpyr77/29/2025ongestive heart failure (ICD-10 - I50.9) Plan Of Treatment Medication Medication Name Sig Start Date Stop Date Notes Isosorbide Mononitrate ER 30 MG TAKE 2 T ABLET BY MOUTH IN THE MORNING. DO NOT CRUSH OR CHEW Oral; Duration: 90 days Lisinopril 20 MGTAKE 2 TABLET BY MOUTH IN THE MORNING Oral; Duration: 90 days Treatment Notes Assessment Notes Hypertension keep coreg - and andrea bet hte lisinopril and isosrbide Progress Notes * Benny CARSONOB:1975 ( 49 yo M)Acc No.[id number]:04/16/2025 Progress Note Patient: Rusty Rodrigo REYNA :?Claude Hernández ([facility]), MDDOB:1975???Age: 49 Y???Sex:MaleDate:04/16/2025Phone:[phone]:[address], [place]Tqltz In:03:11 PM ESTCheck Out:03:31 PM EST Subjective: * Chief Complaints: * 3 monHigh Blood Pressure * HPI: ???General:? BP sig elevated - no symptms - denises BERNAL, CP? Headache. * ROS: ???EENT:?hearing changes?denies.?visual changes?denies. non-healing mouth sores?denies.?swollen glands or neck lumps?denies.?hoarseness?denies.?sore throat?denies.?difficulty swallowing?denies.?nose bleeds?denies.?nasal congestion?denies.?ear ache?denies.?ear discharge denies.?ringing in ears?denies.?light sensitivity?denies.?eye pain?denies.?blurring?denies.?eye irritation?denies.?double vision?denies. vision loss?denies.?General/Constitutional:?Sweats:?Denies.?Fatigue?denies.?Sleep proble ms?denies.?Anorexia?denies.?Malaise?denies.?Weight loss?denies. Fatigue or Weakness?denies.?Fever or Chills?denies.?Cardiovascular:?Shortness of Breath w/lying flat?denies.?Lightheadedne ss/dizziness?denies.?Chest tightness/ heavy pressure?denies.?Swelling of legs, a nkles, or feet?denies.?Waking up with shortness of breath?denies.?Chest pain&#16 0;denies.?Palpitations?denies.?Weight gain?denies.?Respiratory:?Chronic or frequent cough?denies.?Coughing up blood&#1 60;denies.?Difficulty breathing?denies.?Productive cough?denies.?Snoring&#1 60;denies.?Shortness of breath that awakens from sleep (PND)?denies.?Chest pain? denies.?Sputum production?denies.?Wheezing?denies.?Musculoskeletal:?Joint pain?denies.?Joint Fluid?denies.?Backpain?denies.?Knee pain?denies.?Neck pain?denies.?Joint Stiffness?denies.?Muscle cramps?denies.?Weakness of muscles?denies.?Arthritis?denies.?Muscle aches?denies.?Pain in shoulder(s)?denies.?Swollen joints?denies.? * Active Problem List I10 Hypertension Modified On:10/09/2024 Status:jcprigjlpX62.9Congestive heart failure Modified On:10/07/2024U Status:ttkvhrdnlT33.10CAD (coronary artery disease) Modified On:10/09/2024 Status:gqsjhieeyL86.0Hypertensive urgency Modified On:11/07/2024 Status:weizdebfaD14.01Morbid obesity Modified On:11/07/2024 Status:bauwrbkfoM35.7Cardiomegaly Modified On:11/07/2024 Status:ngylfkhmwU98.1Pulmonary edema Modified On:11/07/2024 Status:froiftrieU76.9Diabetes mellitus Modified On:01/13/2025 Status:confirmed * Medical History: * Surgical History: T onsilectomy * Hospitalization/Major Diagno stic Procedure: [facility] Congestive Heart Failure and Hypertension 09/2024 * Family History: F ather: , Massive Heart Attack, diagnosed with Hypertension, Heart Disease. M other: alive, Massive Heart Attack, diagnosed with Hypertension, Heart Disease. B rother(s): , Massive Heart Attack, diagnosed with Heart Disease. S on(s): alive. 1 brother(s) . 1 son(s) - healthy. . * Social History: ???Tobacco Use:?Tobacco Control (Standard)?Tobacco use:?Former smoker ?How long has it been since you last smoked? 1-3 months ???Drug/Alcohol:?AUDIT-C (Standard)?Did you have a drink containing alcohol in the past year??No ?Points?0 ?Interpretation?Negative * Medications: T akingAspirin Low Dose(Aspirin) 81 MG Tablet Chewable CHEW & SWALLOW 1 TABLET BY MOUTH IN THE MORNING Oral Atorvastatin Calcium 80 MG Tablet 1 tablet Orally Once a day Carvedilol 25 MG Tablet TAKE 1 TABLET BY MOUTH TWICE DAILY Oral Farxiga(Dapagliflozin Propanediol) 10 MG Tablet TAKE 1 TABLET BY MOUTH IN THE MORNING Oral Furosemide 40 MG Tablet TAKE 1 TABLET BY MOUTH TWICE DAILY Oral Glimepiride 2 MG Tablet 1 tablet with breakfast or the first main meal of the day Orally Once a day , Notes to Pharmacist: PRNIsosorbide Mononitrate ER 30 MG Tablet Extended Release 24 Hour TAKE 1 TABLET BY MOUTH IN THE MORNING. DO NOT CRUSH OR CHEW Oral Lisinopril 20 MG Tablet TAKE 1 TABLET BY MOUTH IN THE MORNING Oral Plavix(Clopidogrel Bisulfate) 75 MG Tablet 1 tablet Orally Once a day Taking Aspirin Low Dose(Aspirin) 81 MG Tablet Chewable CHEW & SWALLOW 1 TABLET BY MOUTH IN THE MORNING Oral Taking Atorvastatin Calcium 80 MG Tablet 1 tablet Orally Once a day Taking Carvedilol 25 MG Tablet TAKE 1 TABLET BY MOUTH TWICE DAILY Oral Taking Farxiga(Dapagliflozin Propanediol) 10 MG Tablet TAKE 1 TABLET BY MOUTH IN THE MORNING Oral Taking Furosemide 40 MG Tablet TAKE 1 TABLET BY MOUTH TWICE DAILY Oral Taking Glimepiride 2 MG Tablet 1 tablet with breakfast or the first main meal of the day Orally Once a day , Notes to Pharmacist: PRNTaking Isosorbide Mononitrate ER 30 MG Tablet Extended Release 24 Hour TAKE 1 TABLET BY MOUTH IN THE MORNING. DO NOT CRUSH OR CHEW Oral Taking Lisinopril 20 MG Tablet TAKE 1 TABLET BY MOUTH IN THE MORNING Oral Taking Plavix(Clopidogrel Bisulfate) 75 MG Tablet 1 tablet Orally Once a day DiscontinuedSpironolactone 25 MG Tablet 1 tablet Orally Once a day- PRN Medication List reviewed and reconciled with the patientDiscontinued Spironolactone 25 MG Tablet 1 tablet Orally Once a day- PRN Medication List reviewed and reconciled with the patient * Allergies: P enicillin: anaphylaxisno[Allergies Verified] Objective: * Vitals: W t:296.0lbs, Ht: 74 in, BP:232/110mm Hg, BMI:38Index, Ht-cm: 187.96 cm, Wt-k.26 kg. * Examination: ???Physical Exam: ?GENERAL:?well developed, well nourished, in no acute distress.?HEAD:?normocephalic/atraumatic.?EYES:?pupils equal, round and reactive to light, conjunctivae and sclerae normal.?EARS:?no deformity or lesion of external ear, canals and TM appear normal bilaterally, TM's intact, not inflamed with normal light reflex, hearing grossly normal to conversational speech.?NOSE:?no deformity, discharge, inflammation, or lesions. ?MOUTH:?mucous membranes moist, normal oropharynx and posterior pharynx without lesions or exudates, tongue normal, dentition normal.?NECK:?neck supple, no masses or palpable cervical nodes, trachea midline, thyroid without nodules, masses, tenderness, or enlargement.?CHEST:?no chest wall deformity, no chest wall tenderness. ?LUNGS:?normal respiratory effort and clear to auscultation, no wheezes, rales, or rhonchi, good air exchange.?CARDIO:?regular rate and rhythm, normal S1 and S2, nor murmur, rub, or gallop.?PULSES:?normal capillary refill.?ABDOMEN:?soft, non-distended, non-tender, no masses.?MUSCULOSKELETAL:?no deformity or scoliosis noted, normal range of motion, joints normal, no erythema, edema, effusion, or ecchymosis.?EXTREMITY:?no clubbing, cyanosis, edema, or deformity withnormal ROM in both upper and lower bilateral extremities.?NEUROLOGIC:?grossly normal.?SKIN:?no rashes, ulcerations, or suspicious lesions.?LYMPH NODES:?no cervical adenopathy, nodes normal.?MENTAL STATUS:?alert and oriented x3, normal mood and affect.? Assessment: * Assessment: 1.?Hypertension - I10 (Primary)???2.?Congestive heart failure - I50.9??? Plan: * Treatment: Refill Isosorbide Mononitrate ER Tablet Extended Release 24 Hour, 30 MG, TAKE 2 TABLET BY MOUTH IN THE MORNING. DO NOT CRUSH OR CHEW, Oral, 90 days, Refills 0;?Refill Lisinopril Tablet, 20 MG, TAKE 2 TABLET BY MOUTH IN THE MORNING, Oral, 90 days, Refills 0.?? Notes: keep coreg - and doubet hte lisinopril and isosrbide?? * Procedure Codes: * Preventive Medicine: ??Screenings/Counseling:?BMI ACTION PLAN?Above Normal BMI Follow-up?Dietary management education, guidance, and counseling * * Sign off status: CompletedVisit Status:?CHK (Check Out) true * Provider: Mono Hernández ([facility])MD Date: Generated for Printing/[employer]/eTransmitting on:?04/25/2025 10:31 AM EST History and Physical Notes * HPI (History of Present Illness) CategorySub-CategoryDetailNotesCategory NotesGeneralBP sig elevated - no symptms - denises BERNAL, CP Headache Examination CategorySub-CategoryDetailNotesCategory NotesPhysical ExamGENERAL:well developed, well nourished, in no acute distressHEAD:normocephalic/atraumatic EYES:pupils equal, round and reactive to light, conjunctivae and sclerae normal EARS:no deformity or lesion of external ear, canals and TM appear normal bilaterally, TM's intact, not inflamed with normal light reflex, hearing grossly normal to conversational speechNOSE:no deformity, discharge, inflammation, or lesionsMOUTH:mucous membranes moist, normal oropharynx and posterior pharynx without lesions or exudates, tonguenormal, dentition normalNECK:neck supple, no masses or palpable cervical nodes, trachea midline, thyroid without nodules, masses, tenderness, or enlargementCHEST:no chest wall deformity, no chest wall tendernessLUNGS:normal respiratory effort and clear to auscultation, no wheezes, rales, or rhonchi, good air exchangeCARDIO:regular rate and rhythm, normal S1 and S2, nor murmur, rub, or gallopPULSES:normal capillary refillABDOMEN:soft, non-distended, non-tender, no massesRECTAL:MUSCULOSKELETAL:no deformity or scoliosis noted, normal range of motion, joints normal, no erythema, edema, effusion, or ecchymosisEXTREMITY:no clubbing, cyanosis, edema, or deformity with normal ROM in both upper and lower bilateral extremitiesNEUROLOGIC:grossly normalSKIN:no rashes, ulcerations, or suspicious lesionsLYMPH NODES:no cervical adenopathy, nodes normalMENTAL STATUS:alert and oriented x3, normal mood and affect
--- OUTSIDE RECORDS SUMMARY | 2025-04-18 05:45 | XMS_ITS ---
Author Organization The [facility] in [place] Address [address] [place] [address] Care Team Providers Care Marine Cargo Specialist Name Role Phone Guero Hernández Primary Care Provider REASON FOR VISIT BP check Vital Signs Height 74 in 04/18/2025 Blood pressure systolic 198 mm Hg 04/18/20 25 Blood pressure diastolic 102 mm Hg 025 Encounters Encounter Location Date Provider Diagnosis [facility] [address] [place] [address] 04/18/2025 Guero Hernández Plan Of Treatment No Information Progress Notes * Benny CARSONOB:1975 ( 49 yo M)Acc No.[id number]:04/18/2025 Nurse Visit Patient: Rusty REYNA Rodrigo :?Claude Hernández ([facility]), MDDOB:1975???Age: 49 Y???Sex:MaleDate:04/18/2025Phone:[phone]:[address], [place]Ckmyw In:10:37 AM ESTCheck Out:11:00 AM EST Subjective: * Chief Complaints: * 1 . BP check. * Active Problem List I10 Hypertension Modified On:10/09/2024W/U Status:chuggqprpK00.9Congestive heart failure Modified On:10/07/2024W/U Status:stmlrrirxR99.10CAD (coronary artery disease) Modified On:10/09/2024/U Status:itmnhzkinL65.0Hypertensive urgency Modified On:11/07/2024U Status:ejwkqcggiT95.01Morbid obesity Modified On:11/07/2024/U Status:nxefktkylH02.7Cardiomegaly Modified On:11/07/2024U Status:opvvkfyzaU23.1Pulmonary edema Modified On:11/07/2024U Status:gxxxwqlytF42.9Diabetes mellitus Modified On:01/13/2025/U Status:confirmed * Medical History: Objective: * Vitals: H t: 74 in, BP:198/102mm Hg, Ht-cm: 187.96 cm. Assessment: Plan: * Treatment: * Procedure Codes: 3 080F DIAST BP > OR = 90 MM HG, 3077F SYST BP > OR = 140 MM HG * * Sign off status: CompletedVisit Status:?CHK (Check Out) true * Provider: Mono Hernández ([facility])MD Date: 1 Generated for Printing/Faxing/eTransmitting on:?04/25/2025 10:31 AM EST
--- OUTSIDE RECORDS SUMMARY | 2025-04-25 09:20 | XMS_ITS | Encounter Summary ---
Author Organization The [facility] Address [address] [place] [address] Care Team Providers Care Business Professor Name Role Phone Claude Hernández MD Primary Care Provider [phone] Reason for Visit * ReasonCommentsFollow-upFollow up with labsNSTEMIHypertensionCongestive Heart FailureMulti-vessel coronary artery stenosisHyperlipidemiaCoronary Artery DiseaseCardiomyopathyCardiac stent placement Encounter Details DateTypeDepartmentCare Team (Latest Contact Info)Ehjrgpphuno72/07/2025 9:20 AM ESTOffice Visit [facility] [address] [place] [address] Li Waldron MD [address] [place] [address] Chronic diastolic heart failure (CMS/HCC) (Primary Dx); Mixed hyperlipidemia Social History Tobacco UseTypesPacks/DayYears UsedDateSmoking Tobacco: FormerCigarettes Smokeless Tobacco: CurrentChewAlcohol UseStandard Drinks/WeekCommentsNot Currently0 (1 standard drink = 0.6 oz pure alcohol)[facility] UtilitiesAnswerDate RecordedIn the past 12 months has the electric, gas, oil, or water company threatened to shut off services in your home?No10/02/2024Humiliation, Afraid, Rape, and Kick questionnaireAnswerDate RecordedWithin the last year, have you been afraid of your partner or ex-partner?No10/02/2024Emotionally AbusedNot on file10/02/2024Physically AbusedNot on file10/02/2024Sexually AbusedNot on file 10/02/2024Overall Financial Resource Strain (CARDIA)AnswerDate RecordedHow hard is it for you to pay for the very basics like food, housing, medical care, and heating?Not very hard10/02/2024TransportationAnswerDate RecordedIn the past 12 months, has lack of transportation kept you from medical appointments or from getting medications?No10/02/2024Lack of Transportation (Non-Medical)Not on file 10/02/2024Housing Stability Vital SignAnswerDate RecordedIn the last 12 months, was there a time when you were not able to pay the mortgage or rent on time?No 10/02/2024In the past 12 months, how many times have you moved where you were living?t any time in the past 12 months, were you homeless or living in a group home (including now)?No10/02/2024Hunger Vital SignAnswerDate Recorded Within the past 12 months, you worried that your food would run out before you got the money to buymore.Never true10/02/2024Ran Out of Food in the Last YearNot on file10/02/2024Sex and Gender InformationValueDate RecordedSex Assigned at KkkciXqtx83/07/2025 9:16 AM ESTLegal QumRqye3012/15/2021 10:50 PM EDTGender FrvkzigpAhuw95/07/2025 9:16 AM ESTSexual OrientationHeterosexual or Straight 04/25/2025 9:16 AM ESTdocumented as of this encounter Last Filed Vital Signs Vital SignReadingTime TakenCommentsBlood Lohzywrs002/7300804/25/2025 9:25 AM EST Vbnsa552004/25/2025 9:25 AM ESTTemperature--Respiratory Rate--Oxygen Exupctavdn62% 04/25/2025 9:25 AM ESTInhaled Oxygen Concentration--Pqltzg131 kg (291 lb) 04/25/2025 9:25 AM ABQNncstp710 cm (6' 2 )04/25/2025 9:25 AM ESTBody Mass Index 37.3611 9:25 AM ESTdocumented in this encounter Functional Status * BPAnswerDate of YkbljtluewGdxljc435/70858 9:25 AM Rhonda Villanueva MA * PulseAnswerDate of FjyieegldiUkddla1087 9:25 AM Rhonda Villanueva MA * Patient PositionAnswerDate of AlgrwikkqzMjgmsrYezhfvd27/07/2025 9:25 AM Rhonda Collier MA * BPAnswerDate of TaijpgegnbOkwnna121/83068 9:25 AM Rhonda Villanueva MA * PulseAnswerDate of ZcehjtvzxyYztblb8715/07/2025 9:25 AM Rhonda Villanueva MA * XpN2VcjrrtKzin of SorarxhkppWezydn8755/07/2025 9:25 AM Rhonda Villanueva MA * BP LocationAnswerDate of AssessmentAuthorRight arm04/25/2025 9:25 AM Rhonda Collier MA * Patient PositionAnswerDate of EketpumvxlZveqonEubdlip64/07/2025 9:25 AM Rhonda Collier MA documented as of this encounter Plan of Treatment DateTypeDepartmentCare Team (Latest Contact Info)Gzmcpkuzqnc49/05/2026 10:40 AM ESTOffice Visit [facility] [address] [place] [address] Li Waldron MD [address] [place] [address] NameTypePriorityAssociated DiagnosesOrder ScheduleBasic metabolic panelLab Routine Chronic diastolic heart failure (CMS/HCC) Expected: 04/25/2025 (Approximate), Expires: 04/25/2026Lipid panelLabRoutine Mixed hyperlipidemia Expected: 04/25/2025 (Approximate), Expires: 11/07/2026ASTLabRoutine Mixed hyperlipidemia Expected: 04/25/2025 (Approximate), Expires: 6ALTLabRoutine Mixed hyperlipidemia Expected: 04/25/2025 (Approximate), Expires: 04/25/2026documented as of this encounter Visit Diagnoses Diagnosis Chronic diastolic heart failure (CMS/HCC)- Primary Chronic diastolic heart failure Mixed hyperlipidemia documented in this encounter Care Teams Team MemberRelationshipSpecialtyStart DateEnd Date Claude Hernández MD [address] [place], [place] [address] [place] [address] PCP - General10/02/24documented as of this encounter
--- OUTSIDE RECORDS SUMMARY | 2025-04-25 10:32 | XMS_ITS | Clinical Summary ---
Author Organization [facility] [place] Address [address] [place] [address] Care Team Providers Care Parachute Officer Name Role Phone Claude Hernández MD Primary Care Provider Allergies Active AllergyReactionsCriticalityNoted DateCommentsPenicillinsAnaphylaxisHigh 10/02/2024 Medications MedicationSigDispense QuantityRefillsLast FilledStart DateEnd DateStatus dapagliflozin propanediol (Farxiga) 10 mg Indications:HFrEF (heart failure with reduced ejection fraction) (CMS/HCC)Take 1 tablet (10 mg) by mouth in the morning for 360 doses. 90 tablet ctive lisinopril 20 mg tablet Indications:HFrEF (heart failure with reduced ejection fraction) (CMS/HCC)Take 1 tablet (20 mg) by mouth in the morning for 360 doses. 90 tablet ctive aspirin 81 mg chewable tablet Indications:NSTEMI (non-ST elevated myocardial infarction) (CMS/HCC)Chew 1 tablet (81 mg) in the morning for 360 doses. 90 tablet ctive atorvastatin (Lipitor) 40 mg tablet Indications:NSTEMI (non-ST elevated myocardial infarction) (CMS/HCC)Take 2 tablets (80 mg) by mouth at bedtime. 90 tablet ctive carvedilol (Coreg) 25 mg tablet Indications:HFrEF (heart failure with reduced ejection fraction) (CMS/HCC)Take 1 tablet (25 mg) by mouth two times daily for 720 doses. 180 tablet /ctive furosemide (Lasix) 40 mg tablet Indications:HFrEF (heart failure with reduced ejection fraction) ([facility])Take 1 tablet (40 mg) by mouth two times daily. 180 tablet ctive isosorbide mononitrate ER (Imdur) 30 mg 24 hr tablet Indications:HFrEF (heart failure with reduced ejection fraction) ([facility])Take 1 tablet (30 mg) by mouth in the morning for 360 doses. Do not crush or chew. 90 tablet /ctive spironolactone (Aldactone) 25 mg tablet Indications:HFrEF (heart failure with reduced ejection fraction) ([facility]/HCC)Take 1 tablet (25 mg) by mouth in the morning for 360 doses. 90 tablet /ctive Additional Information Patient taking differently:25 mg oralAs needed, Reported on 04/25/2025 clopidogrel (Plavix) 75 mg tablet Indications:NSTEMI (non-ST elevated myocardial infarction) ([facility]),Coronary artery disease involving [place] coronary artery of [place] heart with unstable angina pectoris ([facility])Take 1 tablet (75 mg) by mouth in the morning. 90 tablet ctive glimepiride (Amaryl) 2 mg tablet Take 2 mg by mouth before breakfast.5Active Norvasc 5 mg tablet Take 5 mg by mouth in the morning.5Active Active Problems ProblemNoted DateDiagnosed YolhEmnrfrppfpmr67/06/2025Diabetes plrhbqon68/06/2025 Hypertensive dsjbdek6604/24/2025Pulmonary edema04/24/2025S/P coronary artery stent osgzstzlv96/04/2025oronary artery sasdqzu6210/28/20246391Ggobbijhxqmxcz60/27/2025 Multi-vessel coronary artery sxsyfpws88/18/2025Tobacco use nwnvwpam93/17/2025 Assessment & Plan (10/03/2024 1:48 PM EDT): Patient has a smoking history of more than 20 pack years a day. NSTEMI (non-ST elevated myocardial infarction)10/02/2024 Assessment & Plan (10/03/2024 1:48 PM EDT): [...] and NSTEMI anticipate left heart cath Primary aqrgdelhiisv03/16/2025 Assessment & Plan (10/03/2024 1:48 PM EDT): Continue lisinopril. Assessment & Plan (10/02/2024 2:57 AM EDT): As above also would recommend outpatient sleep study HFrEF (heart failure with reduced ejection fraction)10/02/2024 Assessment & Plan (10/03/2024 1:48 PM EDT): NYHA class II Continue continue IV Lasix Continue lisinopril, Coreg, Aldactone, Farxiga Assessment & Plan (10/02/2024 2:57 AM EDT): Optimize guideline directed medical therapy including Coreg lisinopril Aldactone and Farxiga consider changing DAVEY inhibitor to ARNI monitor I's and O's salt restricted diet core CHF measures in place Eyqnely2210/02/2024 Assessment & Plan (10/03/2024 1:48 PM EDT): Class II obesity Assessment & Plan (10/02/2024 2:57 AM EDT): We will check triglycerides/lipid profile if triglycerides below 300 consider GLP-1 inhibitor discussed with patient about diet management dietary consult already in order for CHF and for obesity Resolved Problems ProblemNoted DateDiagnosed DateResolved DateCoronary artery disease of [place] artery of [place] heart with stable angina nunbesji14/05/2025 Assessment & Plan (10/03/2024 1:48 PM EDT): Cardiac catheterization 10/02 showed multivessel disease, LVEDP 30 CT surgery consulted for CABG evaluation Encounters DateTypeDepartmentCare OmcyLdmieryptgb14/07/2025 9:20 AM ESTOffice Visit [facility] [address] [place] [address] Li Waldron MD Chronic diastolic heart failure (CMS/HCC) (Primary Dx); Mixed lulttiscasthmb52/04/2025Telephone [facility] [address] [facility] [place] [address] Nadya Horton MA from Last 3 Months Family History Medical HistoryRelationNameCommentsCoronary artery diseaseBrotherCoronary artery diseaseMotherRelationNameStatusCommentsBrotherDeceasedFatherAliveMotherDeceased Social History Tobacco UseTypesPacks/DayYears UsedDateSmoking Tobacco: FormerCigarettes Smokeless Tobacco: CurrentChew Tobacco Cessation:Ready to Q uit: Not Asked; Counseling Given: Yes Alcohol UseStandard Drinks/WeekCommentsNot Currently0 (1 standard drink = 0.6 oz pure alcohol)[facility] UtilitiesAnswerDate RecordedIn the past 12 months has the [employer], gas, oil, or water [employer] threatened to shut off services in your home?No10/02/2024Humiliation, Afraid, Rape, and Kick questionnaireAnswerDate RecordedWithin the last year, have you been afraid of your partner or ex-partner?No10/02/2024Emotionally AbusedNot on file10/02/2024Physically Abused Not on file10/02/2024Sexually AbusedNot on file10/02/2024Overall Financial Resource Strain (CARDIA)AnswerDate RecordedHow hard is it for you to pay for the very basics like food, housing, medical care, and heating?Not very hard 10/02/2024TransportationAnswerDate RecordedIn the past 12 months, has lack of transportation kept you from medical appointments or from getting medications?No 10/02/2024Lack of Transportation (Non-Medical)Not on file10/02/2024Housing Stability Vital SignAnswerDate RecordedIn the last 12 months, was there a time when you were not able to pay the mortgage or rent on time?No10/02/2024In the past 12 months, how many times have you moved where you were living? At any time in the past 12 months, were you homeless or living in a alf (including now)?No10/02/2024Hunger Vital SignAnswerDate RecordedWithin the past 12 months, you worried that your food would run out before you got the money to buymore.Never true10/02/2024Ran Out of Food in the Last YearNot on file 10/02/2024Sex and Gender InformationValueDate RecordedSex Assigned at BirthMale 04/25/2025 9:16 AM ESTLegal FmpXgbk1412/15/2021 10:50 PM EDTGender IdentityMale 04/25/2025 9:16 AM ESTSexual OrientationHeterosexual or Bsokhimi31/07/2025 9:16 AM EST Last Filed Vital Signs Vital SignReadingTime TakenCommentsBlood Tatfuphe743/1571204/25/2025 9:25 AM EST Izazm379504/25/2025 9:25 AM PSLBiwwvjfjvhs41.4 ??C (97.5 ??F)10/04/2024 3:13 PM EDTRespiratory Lccc769011/20/2024 4:21 PM EDTOxygen Ceunmuhaeq51%04/25/2025 9:25 AM ESTInhaled Oxygen Concentration--Xyvrjs846 kg (291 lb)04/25/2025 9:25 AM EST Zgmvso834 cm (6' 2 )04/25/2025 9:25 AM ESTBody Mass Index37.36106/25/2024 9:25 AM EST Plan of Treatment DateTypeDepartmentCare Team (Latest Contact Info)Eegptvcvvcw53/05/2026 10:40 AM ESTOffice Visit [facility] [place] [address] [place] [address] Li Waldron MD [address] [place] [address] Health MaintenanceDue DateLast DoneCommentsCT Drauouepjqlf27/01/1978Colonoscopy 1977Colorectal Cancer Ppvdbesuh96/01/1978FIT-DNA1977FIT1977 FOBT1977 8885Jrdwnlthewbmv04/01/1978Diabetes: Retinopathy Oeyrqhibm22/01/1988 Depression Dugdzidpu92/01/1990Diabetes: Urine Protein Njqltgcfi02/01/1997 Hepatitis B Vaccines (1 of 3 - 19+ 3-dose series)1996Pneumococcal Vaccine: Pediatrics (0 to 5 Years) and At-Risk Patients (6 to 64 Years) (1 of 2 - PCV) 1996Adult Isfsfrc59/21/67665210/07/2014Diabetes: Hemoglobin A1C01/01/2025 5COVID-19 Vaccine (1 - season)2025Influenza Vaccine (#1) 2025Zoster Vaccines (1 of 2)09/18/2027HIB VaccinesAged OutNo longer eligible based on patient's age to complete this topicHPV VaccinesAged OutNo longer eligible based on patient's age to complete this topicIPV VaccinesAged OutNo longer eligible based on patient's age to complete this topicMeningococcal B VaccineAged OutNo longer eligible based on patient's age to complete this topicMeningococcal VaccineAged OutNo longer eligible based on patient's age to complete this topicRotavirus VaccinesAged OutNo longer eligible based on patient's age to complete this topic Medical Devices ImplantedTypeAreaManufacturerDevice IdentifierShelf Expiration DateModel / Serial / Gab Salinas Mr 4.00 X 32 - [id number] Implanted:Qty: 1 on 11/20/2024 by Mikael Garcia MD [facility] Eluting StentLeft: [place] [id number] 11/08/[id number] / / [id number] Procedures Procedure NamePriorityDate/TimeAssociated DiagnosisCommentsHEMOGLOBIN D3QMeztkle 10/02/2024 3:58 AM EDT from Last 3 Months or Most Recently Relevant to Health Maintenance Results * (ABNORMAL) Hemoglobin A1c (10/02/2024 3:58 AM EDT)ComponentValueRef RangeTest MethodAnalysis TimePerformed AtPathologist SignatureHemoglobin A1C6.8(H)4.0 - 6.0 %10/02/2024 9:41 AM [facility] ([facility])Estimated Average Glucose 148mg/dL10/02/2024 9:41 AM [facility] ([facility])Specimen (Source) Anatomical Location / LateralityCollection Method / VolumeCollection Time Received TimeBloodVenous blood specimen / UnknownArterial Line / Unknown 10/02/2024 3:58 AM EDT10/02/2024 4:47 AM EDT Narrative Authorizing ProviderResult TypeResult StatusRao CARBAJAL BLOOD ORDERABLESFinal ResultPerforming OrganizationAddressCity/State/ZIP CodePhone Number [facility] ([facility]) [address] [place] [address] from Last 3 Months or Most Recently Relevant to Health Maintenance Insurance Advance Directives * Full Code (Latest Code Status on File) Date ActivatedDate InactivatedComments10/02/2024 2:45 AM10/04/2024 7:06 PM Care Teams Team MemberRelationshipSpecialtyStart DateEnd Date Claude Hernández MD [address] [place] [address] [facility]10/02/24
--- OUTSIDE RECORDS SUMMARY | 2025-04-25 10:32 | XMS_ITS | Clinical Summary ---
Author Organization [facility] Address [address] [place] [address] Care Team Providers Care Orthopedic Shoe Maker Name Role Phone Claude Hernández MD Primary Care Provider [phone] Social History Tobacco UseTypesPacks/DayYears UsedDateSmoking Tobacco: Never AssessedSex and Gender InformationValueDate RecordedSex Assigned at BirthNot on fileLegal Sex Male08/31/2022 7:17 PM EDTGender IdentityNot on fileSexual OrientationNot on file Last Filed Vital Signs Vital SignReadingTime TakenCommentsBlood Arsxygcv371/8408 12:00 PM EDT Pulse--Temperature--Respiratory Rate--Oxygen Saturation--Inhaled Oxygen Concentration--Rdccmd566 kg (295 lb)01/20/2021 12:00 PM MSZDjdjvw860.1 cm (5' 10.5 )01/20/2021 12:00 PM EDTBody Mass Index41.7301/20/2021 12:00 PM EDT Plan of Treatment Not on file Care Teams Team MemberRelationshipSpecialtyStart DateEnd Claude Hernández MD PCP - GeneralFamily Medicine10/07/24
--- OUTSIDE RECORDS SUMMARY | 2025-04-25 10:32 | XMS_ITS | Encounter Summary ---
Author Organization [facility] Address [address] [place] [address] Care Team Providers Care Pediatric Physician Name Role Phone Claude Hernández MD Primary Care Provider [phone] Encounter Details DateTypeDepartmentCare Team (Latest Contact Info)Ommpfqzulav77/04/2025Telephone [facility] [place] [address] [place] [address] Emile HortonCl[place], [place] Social History Tobacco UseTypesPacks/DayYears UsedDateSmoking Tobacco: FormerCigarettes Smokeless Tobacco: CurrentChewAlcohol UseStandard Drinks/WeekCommentsNot Currently0 (1 standard drink = 0.6 oz pure alcohol)[facility] UtilitiesAnswerDate RecordedIn the past 12 months has the electric, gas, oil, or water company threatened to shut off services in your home?10/02/2024Humiliation, Afraid, Rape, and Kick questionnaireAnswerDate RecordedWithin the [...] were you homeless or living in a usp (including now)?No10/02/2024Hunger Vital SignAnswerDate Recorded Within the past 12 months, you worried that your food would run out before you got the money to buymore.Never true10/02/2024Ran Out of Food in the Last YearNot on file10/02/2024Sex and Gender InformationValueDate RecordedSex Assigned at OtskgGlte10/07/2025 9:16 AM ESTLegal IlpKzff4112/15/2021 10:50 PM EDTGender KjwphgtgLgcg22/07/2025 9:16 AM ESTSexual OrientationHeterosexual or Straight 04/25/2025 9:16 AM ESTdocumented as of this encounter Miscellaneous Notes * Telephone Encounter - Nadya Horton MA - 04/22/2025 3:41 PM EST Images from the original note were not included. Regarding lab results from 03/29/2025: MD Nadya Hou MA Cholesterol is 80 a little higher than the goal which is 70 or below. Continue atorvastatin 80 mg daily, follow better low-fat diet and recheck fasting lipids and ALT AST in 3 months. Patient has follow up with Dr. Waldron on 04/25 and we will order repeat labs at that visit. documented in this encounter Plan of Treatment DateTypeDepartmentCare Team (Latest Contact Info)Veirgwlzbou96/05/2026 10:40 AM ESTOffice Visit [place] [address] [place] [address] Li Waldron MD [address] [place] [address] documented as of this encounter Visit Diagnoses Not on filedocumented in this encounter Care Teams Team MemberRelationshipSpecialtyStart DateEnd Claude Hernández MD [address] [place] [address] PCP - General10/02/24documented as of this encounter
--- OUTSIDE RECORDS SUMMARY | 2025-04-25 10:32 | XMS_ITS | Patient Health Record ---
Author Organization [employer] Address [address] [place] [address] Care Team Providers Care Blue Leather Setter Name Role Phone Nahid Lantigua Primary Care Provider Reason For Referral No Information Plan Of Treatment No Information
--- OUTSIDE RECORDS SUMMARY | 2025-04-25 10:32 | XMS_ITS | Patient Health Record ---
Author Organization [facility] in [place] Address [address] [place] [address] Care Team Providers Care Loan Interviewer Name Role Phone Guero Hernández Primary Care Provider Allergies Allergen (clinical drug ingredient) Drug/Non Drug Allergy documented on EMR Reaction Allergy Type Onset Date Status PenicillinanaphylaxisDrug AllergyActive Results Component Value Reference Range Notes CA echo doppler complete Reviewed date:09/30/2024 08:17:54 PM Interpretation: Performing Lab: Notes/Report: Source Facility: [place] [address] Cardiology Report Signed Patient: MAGALY CARSON MR#: [id number] : 1975 Acct:[id number] Age/Sex: 49 / M ADM Date: 09/28/24 Loc: MS 215-[address]: Claude Hernández M.D. Ordering Physician: Claude Hernández M.D. Date of Service: 09/30/24 Procedure(s): CA echo doppler complete Accession Number(s): [id number] cc: Claude Hernández M.D.; Physician,Non-Staff Rayne Patient Name: MAGALY CARSON MR#: [id number] : 1975 Exam Date: 09/30/2024 Ordering Doctor: [...] Signed By: 09/30/24 1437 DD/ 34 TD/TT: Warehouse Packaging Supervisor: PROF MISHA Ramires ([facility]) Reviewed date:11/13/2024 06:07:41 PM Interpretation: Performing Lab: Notes/Report: [facility] , Sodium 140 136-145 mmol/L Potassium4.33.5-5.1 mmol/QQcipkiso94453-226 mmol/LCarbon Gevcilw95.421.0-32.0 mmol/LAnion Gap12.8Qkaceqe22203-242 mg/dLBlood Urea Vmswzcdh14.07.0-18.0 mg/dL Creatinine1.300.70-1.30 mg/dLEstimated GFR ( Henny>60>=60 mL/min/1.73m 2Estimated GFR (Non- Ame59>=60 mL/min/1.73m 2BUN Creatinine Ratio16.2 Calcium9.08.5-10.1 mg/dLPerforming Lab:see cristina - [facility] LBLAB TESTING Reviewed date:12/23/2024 08:17:57 AM Interpretation: Performing Lab: Notes/Report: [id number] Apolipoprotein B [facility] ,Miscellaneous TestCOMMENT. Customer Support Coordinator: Nathan Caraballo PhD, Phone: [phone] Performed at: [facility] High 100 - 130 Desirable < 90 ASCVD RISK THERAPEUTIC TARGET Apolipoprotein B 92 [H ] mg/dL High Risk <90 Borderline High 90 - 99 Very High >130 Performed at: [facility] CATEGORY APO B (mg/dL) Moderate Risk <90 [address] [place], [place] [id number] [address] [place] [id number] Very High Risk <80 (if extreme risk <70) Reference Range: <90 Customer Support Coordinator: Yesy Martinez MD, Phone: [phone] Test Ordered: [id number] Apolipoprotein B Performing Lab:see [facility] LBLipoprotein (a) Reviewed date:12/23/2024 08:04:49 PM Interpretation: Performing Lab: Notes/Report: [facility] ,Lipoprotein (a)<8.4<75.0 nmol/L indicate an independent risk factor for CHD, Note: Values greater than or equal to 75.0 nmol/L october [address] [place], [place] [id number] determined by [facility]. It has not been cleared or Performed at: [facility] approved by the Food and Drug Administration. influence of genetic factors on Lp(a) across ethnicities. but must be evaluated with caution when applied Results verified by repeat testing to non- populations due to the This test was developed and its performance characteristics Customer Support Coordinator: Nathan Caraballo PhD, Phone: [phone] Performing Lab:see [facility] LBLIPID PROFILE Reviewed date:03/29/2025 12:19:58 PM Interpretation: Performing Lab: Notes/Report: [facility] ,Fueuwrckglqid58<=150 mg/hAKtwfbwitdpi776<=200 mg/dLHDL Jzkocnophpx7562-74 mg/dL > or =60 mg/dl - LOW CARDIOVASCULAR RISK <40 mg/dl - HIGH CARDIOVASCULAR RISK LDL Cholesterol Xflnkcdvml04.0 160-189 mg/dl HIGH <100 mg/dl OPTIMAL >190 mg/dl VERY HIGH 130-159 mg/dl BORDERLINE HIGH 100-129 mg/dl NEAR OR ABOVE OPTIMAL VLDL IHTGHYTAWBP00.4Chol HDL Ratio4.5 3.3 - 4.4 LOW RISK >11.0 HIGH RISK 4.4 - 7.1 AVERAGE RISK 7.1 - 11.0 MODERATE RISK Performing Lab:see noteML - [facility] LBSGOT Reviewed date:03/29/2025 12:19:58 PM Interpretation: Performing Lab: Notes/Report: [facility] ,Aspartate Amino Mujqrmzcvpa3452-30 U/LPerforming Lab:see note - [facility] LBSGPT Reviewed date:03/29/2025 12:19:58 PM Interpretation: Performing Lab: Notes/Report: [facility] ,Alanine Extlovhxksfbupge2694-44 U/LPerforming Lab:see noteML - [facility] LBCA echo doppler complete Reviewed date:12/19/2024 08:32:28 PM Interpretation: Performing Lab: Notes/Report: Source Facility: [facility]-[address] [place] [address] Cardiology Report Signed Patient: MAGALY CARSON MR#: [id number] : 1975 Acct:[id number] Age/Sex: 49 / M ADM Date: 12/19/24 Loc: CARD Attending Dr: Essence Waldron M.D. Ordering Physician: Essence Waldron M.D. Date of Service: 12/19/24 Procedure(s): CA echo doppler complete Accession Number(s): [id number] cc: Claude Hernández M.D.; Essence Waldron M.D. Patient Name: MAGALY CARSON MR#: [id number] : 1975 Exam Date: 12/19/2024 Ordering Doctor: DR. ESSENCE WALDRON M.D. ECHOCARDIOGRAM REPORT PROCEDURE: CA ECHO DOPPLER COMPLETE INDICATIONS: Acute on chronic systolic heart failure, DE, cardiac stent COMPARISON: None. DESCRIPTION: COMPLETE ECHOCARDIOGRAM Real-time transthoracic echocardiography with 2D, M-mode, spectral and color flow Doppler performed. QUALITY: Technical quality was good. LEFT VENTRICLE: Normal chamber size. Moderate concentric left ventricular hypertrophy. D-shaped septum consistent with right ventricular pressure and/or volume overload. No obvious wall motion abnormalities. LV EF: Global left ventricular systolic function is normal; visually estimated ejection fraction is 55%. DIASTOLIC: Normal diastolic function. ATRIAL SEPTUM: Visually appears intact. LEFT ATRIUM: Normal chamber size. RIGHT ATRIUM: Normal chamber size. RIGHT VENTRICLE: Normal chamber size. Normal systolic function. TRICUSPID VALVE: Normal mobility and thickness. No stenosis with no regurgitation. Unable to assess right-sided pressures due to lack of measurable tricuspid regurgitation. MITRAL VALVE: Normal mobility and thickness. No evidence of mitral valve stenosis. There is no mitral annular calcification. No mitral regurgitation. AORTIC VALVE: Normal trileaflet appearance. No visible sclerosis. Normal leaflet mobility. No evidence of aortic valve stenosis. No aortic regurgitation. AORTIC ROOT: Normal diameter and appearance. Ascending aorta is normal in size. PULMONIC VALVE: Normal thickness and mobility. No stenosis. No regurgitation. PERICARDIUM: Trivial pericardial effusion. IVC: Collapses with inspiration. CONCLUSION: 1. Global left ventricular systolic function is normal; visually estimated ejection fraction is 55% 2. D-shaped septum consistent with right ventricular pressure and/or volume overload 3. Normal right ventricular size and systolic function 4. Normal diastolic function 5. No significant valvular abnormalities 6. Trivial pericardial effusion Adult Echocardiography Procedure Report Left Ventricle LVEDD (3.7 - 5.6 cm): 5.24 cm LVESD (2.2 - 4.0 cm): 3.57 cm LVIVS thickness (0.6 - 1.2 cm): 1.36 cm LVPW thickness (0.5 - 1.0 cm): 1.20 cm e': 0.13 m/s E - e': 6.69 LVOT Max Gradient: 3.19 mm[Hg] LVOT Area (cm2): 0.89 m/s Peak Velocity (LVOT): 0.89 m/s LVOT Diameter 2.58 cm Left Atrium LA Volume Index (2D A2C): 25.53 ml/m2 Left Atrium Systolic Dimension: 3.64 cm Mitral Valve MV E to A Ratio: 1.01 Mitral Valve A-Wave Peak Velocity: 0.86 m/s Mitral Valve E-Wave Peak Velocity: 0.87 m/s Right Ventricle Aorta AO Root Diam: 3.74 cm Ascending Ao Diam: 3.18 cm Aortic Valve AoV Area (Peak Vlad): 3.15 cm2, 3.15 cm2 Peak Velocity(Antegrade Flow): 1.48 m/s Peak Gradient(Antegrade Flow): 8.71 mm[Hg] Tricuspid Valve Pulmonic Valve Peak Velocity: 1.50 m/s Peak Gradient: 8.95 mm[Hg] Right Atrium Right Atrium Systolic Pressure: 59.56 ml, 59.56 ml Dictated by: Florecita Ashraf M.D. on 12/19/2024 at 16:45 Approved by: Florecita Ashraf M.D. on 12/19/2024 at 16:49 Dictated By: Florecita Ashraf M.D. Signed By: 12/19/241649 DD/ 48 TD/TT: Warehouse Packaging Supervisor:PROF Diaz([facility]) Reviewed date:12/19/2024 08:32:28 PM Interpretation: Performing Lab: Notes/Report: [facility] ,Jtfxzz981502-602 mmol/LPotassium3.73.5-5.1 mmol/ZOgkqlkxe51727-171 mmol/LCarbon Rzmtlkh92.821.0-32.0 mmol/LAnion Gap11.3Uilnrkh47795-678 mg/dLBlood Urea Duzxwfmt34.07.0-18.0 mg/dLCreatinine1.660.70-1.30 mg/dLEstimated GFR ( Ilprprj18>=60 mL/min/1.73m 2Estimated GFR (Non- Ame45>=60 mL/min/1.73m 2 BUN Creatinine Ratio12.7Dvdqmgv5.38.5-10.1 mg/dLBilirubin Total0.50.2-1.0 mg/dL Aspartate Amino Rjqqjzhvrzn3766-27 U/LAlanine Uqyymgachwsoacah0778-51 U/L Alkaline Sigzsrbihka49032-858 U/LTotal Protein7.46.4-8.2 g/dLAlbumin Level3.5 3.4-5.0 g/dLGlobulin3.9Albumin Globulin Ratio0.9Performing Lab:see noteML - [facility] LBLIPID PROFILE Reviewed date:12/19/2024 08:32:28 PM Interpretation: Performing Lab: Notes/Report: [facility] ,Txjhfregxbcln691<=150 mg/mMYnhhoszskjo135<=200 mg/dLHDL Ejqpncgzdww0459-39 mg/dL > or =60 mg/dl - LOW CARDIOVASCULAR RISK <40 mg/dl - HIGH CARDIOVASCULAR RISK LDL Cholesterol Opjqxqdrcp84.0 100-129 mg/dl NEAR OR ABOVE OPTIMAL 160-189 mg/dl HIGH >190 mg/dl VERY HIGH <100 mg/dl OPTIMAL 130-159 mg/dl BORDERLINE HIGH VLDL FWIFJRBKEKH57.4Chol HDL Ratio5.3 7.1 - 11.0 MODERATE RISK 4.4 - 7.1 AVERAGE RISK >11.0 HIGH RISK 3.3 - 4.4 LOW RISK Performing Lab:see noteML - [facility] LBCBC AUTO DIFF Reviewed date:11/13/2024 06:07:41 PM Interpretation: Performing Lab: Notes/Report: [facility] ,White Blood Count12.94.0-11.0 10 3/uLRed Blood Count5.114.70-6.10 10 6/uL Htbrtiziby33.914.0-18.0 g/fXAyiymzeenh83.542.0-54.0 %Mean Corpuscular Kshxwb25.1 80.0-94.0 fLMean Corpuscular Hxfnlhuxfu73.225.9-34.0 pgMean Corpuscular HGB Conc 34.329.9-35.2 g/dLRed Cell Distribution Width13.211.0-15.0 %Platelet Tmqme384 150-450 10 3/uLMean Platelet Qqlmpg05.89.5-13.5 fLNeutrophils Percent Auto63.4 43.0-75.0 %Lymphocytes Percent Auto23.220.5-60.0 %Monocytes Percent Auto9.01.7- 12.0 %Eosinophils Percent Auto3.50.9-7.0 %Basophils Percent Auto0.50.2-2.0 % Immature Granulocytes Pct Auto0.40.0-0.5 %Neutrophils Absolute Auto8.21.4-6.5 10 3/uLLymphocytes Absolute Auto3.01.2-3.8 10 3/uLMonocytes Absolute Auto1.20.3- 0.8 10 3/uLEosinophils Absolute Auto0.50.0-0.7 10 3/uLBasophils Absolute Auto0.1 0.0-0.1 10 3/uLImmature Granulocytes Abs Auto0.050.00-0.03 10 3/uLPerforming Lab:see noteML - [facility] LBPROF CHEM 8 (BAS METB) Reviewed date:10/01/2024 01:04:29 PM Interpretation: Performing Lab: Notes/Report: [facility] ,Idgckb193633-174 mmol/LPotassium3.23.5-5.1 mmol/JKzvqbqlw01083-917 mmol/LCarbon Ndfqnqb96.621.0-32.0 mmol/LAnion Gap7.6Ajndqba29468-661 mg/dLBlood Urea Tqgzrtzb05.07.0-18.0 mg/dLCreatinine1.150.70-1.30 mg/dLEstimated GFR ( Henny>60>=60 mL/min/1.73m 2Estimated GFR (Non- Barbara>60>=60 mL/min/1.73m 2BUN Creatinine Ratio19.8Wkarzws6.38.5-10.1 mg/dLPerforming Lab:see note - [facility] LBCBC AUTO DIFF Reviewed date:10/01/2024 01:04:29 PM Interpretation: Performing Lab: Notes/Report: [facility] ,White Blood Count11.04.0-11.0 10 3/uLRed Blood Count5.664.70-6.10 10 6/uL Hybmunsmlx27.114.0-18.0 g/nCNxbgmopmyu55.942.0-54.0 %Mean Corpuscular Irbbtf83.6 80.0-94.0 fLMean Corpuscular Yvdhytimca94.425.9-34.0 pgMean Corpuscular HGB Conc 33.629.9-35.2 g/dLRed Cell Distribution Width13.511.0-15.0 %Platelet Niidu796 150-450 10 3/uLMean Platelet Vbsyqu09.99.5-13.5 fLNeutrophils Percent Auto58.5 43.0-75.0 %Lymphocytes Percent Auto26.920.5-60.0 %Monocytes Percent Auto9.01.7- 12.0 %Eosinophils Percent Auto4.50.9-7.0 %Basophils Percent Auto0.80.2-2.0 % Immature Granulocytes Pct Auto0.30.0-0.5 %Neutrophils Absolute Auto6.41.4-6.5 10 3/uLLymphocytes Absolute Auto3.01.2-3.8 10 3/uLMonocytes Absolute Auto1.00.3- 0.8 10 3/uLEosinophils Absolute Auto0.50.0-0.7 10 3/uLBasophils Absolute Auto0.1 0.0-0.1 10 3/uLImmature Granulocytes Abs Auto0.030.00-0.03 10 3/uLPerforming Lab:see noteML - [facility] LBBNP Reviewed date:10/01/2024 01:04:29 PM Interpretation: Performing Lab: Notes/Report: [facility] ,NT Pro B Type Natriuretic Iogf516.0<=450.0 pg/mLPerforming Lab:see note - [facility] LBPROF CHEM 8 (BAS METB) Reviewed date:12/25/2024 12:56:58 PM Interpretation: Performing Lab: Notes/Report: [facility] ,Jddydp133307-086 mmol/LPotassium3.93.5-5.1 mmol/FZktggcjr84957-319 mmol/LCarbon Agopghf49.321.0-32.0 mmol/LAnion Gap14.8Gkiaujq75186-770 mg/dLBlood Urea Lfvadzke23.07.0-18.0 mg/dLCreatinine1.710.70-1.30 mg/dLEstimated GFR ( Gpvqkbz62>=60 mL/min/1.73m 2Estimated GFR (Non- Ame43>=60 mL/min/1.73m 2 BUN Creatinine Ratio16.5Suticxy2.88.5-10.1 mg/dLPerforming Lab:see noteML - [facility] Reason For Referral No Information Medications Medication SIG (Take, Route, Frequency, Duration) Notes Start Date End Date Status Farxiga 10 MG TAKE 1 TABLET BY MOUTH IN THE MO RNING Oral; Duration: 30 Days ActiveNorvasc 5 MG1 tablet Orally Once a day; Duration: 30 day(s)04/18/2025 ActiveFurosemide 40 MGTAKE 1 TABLET BY MOUTH TWICE DAILY Oral; Duration: 30 Days ActiveIsosorbide Mononitrate ER 30 MGTAKE 2 TABLET BY MOUTH IN THE MORNING. DO NOT CRUSH OR CHEW Oral; Duration: 90 daysActiveAtorvastatin Calcium 80 MG1 tablet Orally Once a day; Duration: 90 daysActiveCarvedilol 25 MGTAKE 1 TABLET BY MOUTH TWICE DAILY Oral; Duration: 90 DaysActiveAspirin Low Dose 81 MGCHEW & SWALLOW 1 TABLET BY MOUTH IN THE MORNING Oral; Duration: 96 DaysActivePlavix 75 MG1 tablet Orally Once a day; Duration: 30 days5ActiveLisinopril 20 MG TAKE 2 TABLET BY MOUTH IN THE MORNING Oral; Duration: 90 daysActiveGlimepiride 2 MG1 tablet with breakfast or the first main meal of the day Orally Once a day; Duration: 30 hlwdPSB66/09/2025Active Social History Tobacco Use: Social History Observation Description Date Details (start date - stop date) Former Smoker NA - NA Tobacco Control (Standard) Question Answer Notes Tobacco use: Former smoker How long has it been since you last smoked?1-3 monthsAUDIT-C (Standard) Question Answer Notes Did you have a drink containing alcohol in the p ast year? No Uevcju7ShgkznebxcabcxLcgskyli Problems Problem Type SNOMED Code ICD Code Onset Dates Problem Status W/U Status Risk Notes Problem Cardiomegaly (2303883) Cardiomegaly (I51. 7) ActiveconfirmedProblemMorbid obesity (312763930)Morbid obesity (E66.01)Active confirmedProblemHypertension (64177368)Hypertension (I10)ActiveconfirmedProblem Congestive heart failure (94548598)Congestive heart failure (I50.9)Active confirmedProblemCoronary artery disease (01459002)CAD (coronary artery disease) (I25.10)ActiveconfirmedProblemPulmonary edema (37390137)Pulmonary edema (J81.1) ActiveconfirmedProblemHypertensive urgency (302129433)Hypertensive urgency (I16.0)ActiveconfirmedProblemDiabetes mellitus (72425221)Diabetes mellitus (E11.9)Activeconfirmed Vital Signs Blood pressure diastolic 102 mm Hg 04/18/2025 Mrjqqf73 in04/18/2025lood pressure vizazzfp373 mm Hg04/18/20250983Gidioz863.0 lbs 04/16/2025BMI38 kg/m204/16/2025 Encounters Encounter Location Date Provider Diagnosis [address] [place] [address] 09/30/2024 Guero [facility] [place] [address] 10/07/2024[facility] [place] [address]/08/2024Doug HoyAbnormal renal function N28.9BP[address] [facility] [address]/02/2025Doug [facility] [place] [address] 04/14/2025[facility] [facility] [address]/31/2025[facility] [facility] [place] [address]/[facility] [facility] [place] [address]/Doug HoyHypertension I10 ; Congestive heart failure I50.9 and CAD (coronary artery disease) I25.10BP[address] [place] [address]/ Guero HoyHypertension I10 ; Congestive heart failure I50.9 and Diabetes mellitus E11.9BPaul [address] [facility] [address] 04/16/2025Doug HoyHypertension I10 and Congestive heart failure I50.9B[facility] [place] [address]/ Guero HoyCongestive heart failure I50.9 Assessments Encounter Date Diagnosis (ICD Code) Assessment Notes Treatment Notes Treatment Clinical Notes Section Notes 10/07/2024 Congestive heart failure (ICD-10 - I50.9) 10/09/2024Hypertension (ICD-10 - I10)10/09/2024ongestive heart failure (ICD-10 - I50.9)01/13/2025Hypertension (ICD-10 - I10)01/13/2025ongestive heart failure (ICD-10 - I50.9)04/16/2025Hypertension (ICD-10 - I10)keep coreg - and doubet hte lisinopril and vxscxbufr89/29/2025ongestive heart failure (ICD-10 - I50.9) 12/19/2024bnormal renal function (ICD-10 - N28.9)01/13/2025Diabetes mellitus (ICD-10 - E11.9)10/09/2024AD (coronary artery disease) (ICD-10 - I25.10) Plan Of Treatment Pending Test Test Name Order Date BMP - Basic Metabolic Panel 12/19/2024 Insurance Providers Payer Name Payer Address Payer Phone Subscriber Number Group Number Insured Name Patient Relationship to Insured Coverage Start Date Coverage End Date [employer] PPO PLUS LOCAL PLAN [address] [place] [address] [id number] Joe Carson - patient is the insured Medical (General) History Medical History History ICD Code Hypertension I10 Congestive heart failure I50.9 Surgical History Surgery Date(Month/Year) Tonsilectomy Hospitalization History Reason Date(Month/Year) [facility] Congestive Heart F ailure and Hypertension 09/2024
--- OUTSIDE RECORDS SUMMARY | 2025-04-25 10:34 | XMS_ITS | CCD ---
Author Organization [facility] Care Team Providers Care Aeronautical Research Engineer Name Role Phone NIDA LANDA Referring Unavailabl e NIDA LANDA Referring Unavailabl e YU, DANA Referring Unavailable YU, DANA Referring Unavailable NIDA LANDA Referring Unavailabl e KEENE, ENRIQUETA Referring Unavailable KEENE, ENRIQUETA Referring Unavailable KEENE, ENRIQUETA Admitting Unavailable KEENE, ENRIQUETA Attending Unavailable HOMERRILL Suarez Referring Unavailable HORANI, HERNAN Admitting Unavailable YU, DANA Attending Unavailable ESSENCE WALDRON Attending Unavailable DONALDSTELLA RYAN Attending Unavailable DONALDSTELLA RYAN Attending Unavailable ESSENCE WALDRON Attending Unavailable DERRAMYA VALDEZONY Referring Unavailable NIDA LANDA Referring Unavailabl e SANAULLNICK, RAO Referring Unavailable Allergies Allergy ClassificationReported Allergen(s)Allergy TypeDate of OnsetReaction(s) Facility (1 source)Penicillins; Translations: [PENICILLINS]Propensity to adverse reactions to drug (disorder)69-77-9791LshcwwhzcwJ.W. [facility] Repository Problems Active Problems Problem ClassificationProblemDateDocumented DateEpisodic/ChronicAcute myocardial infarction (2 sources)Non-ST elevation (NSTEMI) myocardial infarction; Translations: [Non- ST elevation (NSTEMI) myocardial infarction]Onset: 12-62-3677TrlyptlLxqnxwushh heart failure; nonhypertensive (4 sources)Unspecified systolic (congestive) heart failure; Translations: [Congestive heart failure]Onset: 45-11-1018MgexcrpVyhofadu atherosclerosis and other heart disease (8 sources)Atherosclerotic heart disease of [place] coronary artery with unstable angina pectoris; Translations: [Atherosclerotic heart disease of [place] coronary artery without angina pectoris]Onset: 43-54-9525ZfttfkjMpgbdyjej of lipid metabolism (4 sources)Mixed hyperlipidemia; Translations: [Hyperlipidemia]Onset: 10-11-2024 ChronicEssential hypertension (4 sources)Essential (primary) hypertension; Translations: [Hypertensive disorder]Onset: 75-77-9475PxbeoypCrtwu nutritional; endocrine; and metabolic disorders (2 sources)Morbid (severe) obesity due to excess calories; Translations: [Morbid (severe) obesity due to excess calories]Onset: 26-57-8749ZjxmxmcTkrvs nutritional; endocrine; and metabolic disorders (2 sources)Body mass index (BMI) 39.0-39.9, adult; Translations: [Body mass index (BMI) 39.0-39.9, adult]Onset: 94-56-4387TuzyqkrCsqjgmco codes; unclassified (2 sources)Hypersomnia, unspecified; Translations: [Hypersomnia, unspecified] Onset: 90-69-7983PalsshsOzxbxjtcs-related disorders (2 sources)Nicotine dependence, unspecified, uncomplicated; Translations: [Nicotine dependence, unspecified, uncomplicated]Onset: 87-35-3570Fpluzaf Unclassified (1 source)Obesity, class 2; Translations: [Obesity, class 2]Onset: 10-28-2024 Past or Other Problems Problem ClassificationProblemDateDocumented DateEpisodic/ChronicCoronary atherosclerosis and other heart disease (2 sources)Presence of coronary angioplasty implant and graft; Translations: [Presence of coronary angioplastyimplant and graft]Onset: 26-28-6167Cqotkzcq Malaise and fatigue (2 sources)Fatigue; Translations: [Fatigue]Onset: 47-99-1063UfgebiykKacgc screening for suspected conditions (not mental disorders or infectious disease) (2 sources)Abnormal findings on diagnostic imaging of heart and coronary circulation; Translations: [Abnormal findings on diagnostic imaging of heart and coronary circulation]Onset: 30-31-7148XmjozfngTvtwuyrpkslh (1 source)Obesity, class 2; Translations: [Obesity, class 2]Onset: 11-20-2024 Results Test NameValueInterpretationReference ZcchhEeyyxgbc53vt 24-29-432686Qafusxrmf lab results from 03/29/2025: MD Nadya Hou MA Cholesterol is 80 a little higher than the goal which is 70 or below. Continue atorvastatin 80 mg daily, follow better low-fat diet and recheck fasting lipids and ALT AST in 3 months. Patient has follow up with Dr. Waldron on 04/25 and we will order repeat labs at that visit.[facility] CenterOrders Onlyon 01-09-2025 Orders [id number] Magaly Yung 1975 M [facility] Provider Department [place] 01/09/2025 [id number], HISTORICAL [facility] HeartVAS Family History Problem Relation Age of Onset Coronary artery disease Mother 45 Coronary artery disease Brother 42 Family Status - Relation Status Age at Mother Father Alive Brother DeceasedNormalUniLutheran HospitalTelemedicineon [id number] Magaly Yung 1975 M [facility] Provider Department [place] 01/03/2025 1052-STELLA [facility]ENCE [facility] HeartVAS Family History Problem Relation Age of Onset Coronary artery disease Mother 45 Coronary artery disease Brother 42 Family Status - Relation Status Age at Mother Father Alive Brother Level of Service:NOCHG [place] 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NormalUniLutheran HospitalOffice Visiton 73-42-8654Apmldi-up [id number] Magaly Yung 1975 M [facility] Provider Department [place] 12/27/2024 71339-OJVMLOESSENCE WALDRON [facility] Family History Problem Relation Age of Onset Coronary artery disease Mother 45 Coronary artery disease Brother 42 Family Status - Relation Status Age at Mother Father Alive Brother Level of Service:43862 CA OFFICE/OUTPATIENT ESTABLISHED MOD MDM 30 MIN Reason for Visit and Comments: Coronary Artery Disease [187] - He is s/p PCI with Dr. Keene. Hypertension [945701] Hyperlipidemia [182] - Had lipid panel last week. Congestive Heart Failure [127] - Had echo last week. Post-Cath [731] - With stent placementNormalUniLutheran Hospital 36on [id number] echo result from 12/19/2024: MD Nadya Hou MA His [...] see Dr. Waldron on 12/27/2024 per her request.[facility] CenterOrders Onlyon 76-91-0632Gvlrmv [id number] Magaly Yung 1975 M Date Provider Department Center 12/23/2024 [id number], [facility] Family History Problem Relation Age of Onset Coronary artery disease Mother 45 Coronary artery disease Brother 42 Family Status - Relation Status Age at Mother Father Alive Brother DeceasedNormalUniMichael Ville 71172on 66-17-179049Qhw appt w Dr waldron will address [facility] Telemedicineon [id number] Magaly Yung 1975 Provider Department Center 12/02/2024 [facility] Family History Problem Relation Age of Onset Coronary artery disease Mother 45 Coronary artery disease Brother 42 Family Status - Relation Status Age at Mother Father Alive Brother Level of Service:NOCHG [place] 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 Reason for Visit and Comments: Cardiology Pharmacist - Lipid Management [Other][facility] CenterResults Follow-Upon 46-48-8838Sylmkct Follow-[id number] Magaly Yung 1975 Provider Department Center 12/01/2024 [id number]-NQGRXMESSENCE WALDRON Family History Problem Relation Age of Onset Coronary artery disease Mother 45 Coronary artery disease Brother 42 Family Status - Relation Status Age at Mother Father Alive Brother DeceasedNormalUChillicothe Hospital29on [id number] Addended by: ENRIQUETA KEENE on: 11/20/2024 02:08 PM Modules accepted: OrdersNormalUniLutheran HospitalDocumentationon [id number] Magaly Yung 1975 M Date Provider Department Center 11/20/2024 [id number], K[place] HVCANTICOAG [place] HeartVAS Family History Problem Relation Age of Onset Coronary artery disease Mother 45 Coronary artery disease Brother 42 Family Status - Relation Status Age at Mother Father Alive Brother Reason for Visit and Comments: Cardiology Pharmacist - Referral [Other][facility] Medical [id number] Magaly Yung 1975 Provider Department [place] 11/20/2024 289-ENRIQUETA KEENE HVC CARD [place] HeartVAS Family History Problem Relation Age of Onset Coronary artery disease Mother 45 Coronary artery disease Brother 42 Family Status - Relation Status Age at Mother Father Alive Brother Reason for Visit and Comments: Coronary Artery Disease [187][facility] Hospitalon 84-39-3597IOY&P reviewed. The patient was examined and there are no changes to the H&P. Discussed risks, benefits, and alternative therapies with the patient, he understands and willing to proceed with coronary angiogram and possible PCI. Troy Mendez MD PGY-7 Interventional Cardiology FellowNormOhioHealth Berger Hospital NURSNOTEon 76-31-2324QDPSLWFLLF educated pt on d/c instructions. This included: site care, limited physical [...] wheeled off of unit with all of belongings.[facility] CenterOrders Onlyon 13-71-1979Viqibk [id number] Magaly Yung 1975 Provider Department Center 11/13/2024 AngelaCHRISTINATOM [facility] [place] HeartVAS Family History Problem Relation Age of Onset Coronary artery disease Mother 45 Coronary artery disease Brother 42 Family Status - Relation Status Age at Mother Father Alive Brother DeceasedNormalUniLutheran HospitalAbstracton 11-01-2024 [id number] Magaly Yung 1975 M Date Provider Department Center 11/01/2024 ENRIQUETA [facility] [facility] Medical C Family History Problem Relation Age of Onset Coronary artery disease Mother 45 Coronary artery disease Brother 42 Family Status - Relation Status Age at Mother Father Alive Brother DeceasedNormalUniLutheran HospitalDocumentationon [id number] Magaly Yung 1975 M Date Provider Department Center 10/28/2024 ENRIQUETA [facility] [facility] HeartVAS Family History Problem Relation Age of Onset Coronary artery disease Mother 45 Coronary artery disease Brother 42 Family Status - Relation Status Age at Mother Father Alive Brother Reason for Visit and Comments: Congestive Heart Failure [127] Coronary Artery Disease [187][facility] Hospitalon 80-11-8107YADhogskwctr I had heart team discussion with Dr. [...] Diagnosis Plan 1. Primary hypertension Case Request Canvas Repairer: Coronary angiography, Percutaneous coronary intervention 2. Multi-vessel coronary artery stenosis Case Request Canvas Repairer: Coronary angiography, Percutaneous coronary intervention 3. HFrEF (heart failure with reduced ejection fraction) ([facility]) Case Request Canvas Repairer: Coronary angiography, Percutaneous coronary intervention 4. Coronary artery disease of [place] artery of [place] heart with stable angina pectoris 5. Tobacco use disorder Case Request Canvas Repairer: Coronary angiography, Percutaneous coronary intervention 6. Mixed hyperlipidemia Case Request Canvas Repairer: Coronary angiography, Percutaneous coronary intervention 7. Class 2 severe obesity due to excess calories with serious comorbidity and body mass index (BMI) of 39.0 to 39.9 in adult ([facility] Case Request Canvas Repairer: Coronary angiography, Percutaneous coronary intervention 8. Coronary artery disease involving [place] coronary artery of [place] heart with unstable angina pectoris ([facility] Case Request Canvas Repairer: Coronary angiography, Percutaneous coronary intervention Lab on [...] Bilirubin, Urine 10/17/2024 Negative Negative Final [place], Urine 10/17/2024 1.015 1.010 - 1.030 Final [...] eGFR 10/17/2024 65.8 >60.0 mL/min/1.73m*2 Final [facility]???s estimated glomerular filtration rate (eGFR) [...] THERAPEUTIC RANGE. CHEST 1995;108:231S-246 (more content not included)...NormalJ.W. Ruby Memorial Hospital36on 88-83-318315Iygbww and discussed with patient cardiac catherization reviewed by Dr. Arnav Valle and Dr. Enriqueta Keene and plan was decided to proceed with PCI instead of open heart surgery. Heart Surgery cancelled for Monday10/28/2024. Patient agreeable to plan of care and all questions and concerns answered appropriately.Normal [facility] HospitalTelephoneon [id number] Magaly Yung 1975 M Date Provider Department Center 10/24/2024 NIDA MARTINEZ JCChaim Surgery None Family History Problem Relation Age of Onset Coronary artery disease Mother 45 Coronary artery disease Brother 42 Family Status - Relation Status Age at Mother Father Alive Brother DeceasedNormalUniversDayton VA Medical CenterAbstracton 10-22-2024 [id number] Magaly Yung 1975 M Date Provider Department Center 10/22/2024 2020-[facility]USTABO CARO [facility] [place] [facility] Family History Problem Relation Age of Onset Coronary artery disease Mother 45 Coronary artery disease Brother 42 Family Status - Relation Status Age at Mother Father Alive Brother DeceasedNormalUniLutheran HospitalAPTTon 10-17-2024 ACTIVATED PARTIAL THROMBOPLASTIN TIME IN PPP BY COAGULATION ASSAY31.0 Seconds Ndnhji34.0-35.0UnTriHealth Bethesda Butler HospitalComment on above:Result Comment: Clinical significance of the APTT is questionable in the presence of heparin.Performed By: #### [id number] #### [facility] ([facility]) [address] [place], [place] [address]VGE WITH AUTO DIFFERENTIALon 61-14-5759Cotcczpsu (Bld) [#/Vol] 0.12 10*3/uLNormal0.00-0.20UnTriHealth Bethesda Butler HospitalComment on above: Performed By: #### [id number] #### [facility] ([facility]) [address] [place], [place] [address]Tixrbvyqy/100 WBC (Bld)1.0 %Normal0.0-1.0UnTriHealth Bethesda Butler HospitalComment on above:Performed By: #### [id number] #### [facility] ([facility]) [address] [place], [place] [address]Erexdlpfuam (Bld) [#/Vol]0.35 10*3/uLNormal0.00-0.50UnTriHealth Bethesda Butler HospitalComment on above:Performed By: #### [id number] #### [facility] ([facility]) [address] [place], [place] [address]Trirnpzgsuk/100 WBC (Bld)3.0 %Normal0.0-6.0UnTriHealth Bethesda Butler HospitalComment on above:Performed By: #### [id number] #### [facility] ([facility]) [address] [place], [place] [address]Tpujxkguchb distribution width (RBC) [Ratio]13.2 %Normal 11.5-15.0UnTriHealth Bethesda Butler HospitalComment on above:Performed By: #### [id number] #### [facility] ([facility]) [address] [place], [place] [address]EJUADZTJNSO MEAN CORPUSCULAR HEMOGLOBIN CONCENTRATION (G/DL) BY OGENKTCOT67.2 g/wDTxghps86.0-35.0UnTriHealth Bethesda Butler HospitalComment on above:Performed By: #### [id number] #### [facility] ([facility]) [address] [place], [place] [address]Deqjhypmbu (Bld) [Volume fraction]48.7 %Dabpfv89.0-50.0 [facility] HospitalComment on above:Performed By: #### [id number] #### [facility] ([facility]) [address] [place], [place] [address]Nvltrjsmfx (Bld) [Mass/Vol]15.7 g/fABfebzg31.0-17.0UnTriHealth Bethesda Butler HospitalComment on above:Performed By: #### [id number] #### [facility] ([facility]) [address] [place] [address]Xweczcih granulocytes (Bld) [#/Vol]0.04 10*3/uLNormal0.00-0.20 [facility] HospitalComment on above:Performed By: #### [id number] #### [facility] ([facility]) [address] [place], [place] [address]Gcsxkbra granulocytes/100 WBC (Bld)0.3 %Normal0.0-1.0UnTriHealth Bethesda Butler HospitalComment on above:Performed By: #### [id number] #### [facility] ([facility]) [address] [place], [place] [address]Mytqtwcmosi (Bld) [#/Vol]2.14 10*3/uLNormal1.20-4.00UnTriHealth Bethesda Butler HospitalComment on above:Performed By: #### [id number] #### [facility] ([facility]) [address] [place], [place] [address]Rcsjobrqfqf/100 WBC (Bld)18.4 %Low20.0-45.0UnTriHealth Bethesda Butler HospitalComment on above:Performed By: #### [id number] #### [facility] ([facility]) [address] [place], [place] [address]YTI (RBC) [Entitic mass]28.1 soAcjdij93.0-33.0UnTriHealth Bethesda Butler HospitalComment on above:Performed By: #### [id number] #### [facility] ([facility]) [address] [place], [place] [address]LUD (RBC) [Entitic vol]87.1 hJGeqhag86.0-98.0UnTriHealth Bethesda Butler HospitalComment on above:Performed By: #### [id number] #### [facility] ([facility]) [address] [facility] [place], [place] [address]Sqocwdled (Bld) [#/Vol]1.11 10*3/uLHigh0.10-1.00UnTriHealth Bethesda Butler HospitalComment on above:Performed By: #### [id number] #### [facility] ([facility]) [address] [place] [address]Qstdofmew/100 WBC (Bld)9.5 %Normal5.0-12.0UnTriHealth Bethesda Butler HospitalComment on above:Performed By: #### [id number] #### [facility] ([facility]) [address] [place] [address]Rbwqfotfwug (Bld) [#/Vol]7.90 10*3/uLHigh1.60-7.60UnTriHealth Bethesda Butler HospitalComment on above:Performed By: #### [id number] #### [facility] ([facility]) [address] [place] [address]Pbedqjwxpob/100 WBC (Bld)67.8 %Btmale63.0-72.0UnTriHealth Bethesda Butler HospitalComment on above:Performed By: #### [id number] #### [facility] ([facility]) [address] [place] [address]NNNK (PER 100 WBCS) BY AUTOMATED COUNT0.0 %Yuymrq1DycffwnetgTriHealth Bethesda Butler HospitalComment on above:Performed By: #### [id number] #### [facility] ([facility]) [address] [place] [address]GVUEVQYSX (10*3/UL) IN BLOOD AUTOMATED PVSQN191 10*3/uLNormal 150-400UnTriHealth Bethesda Butler HospitalComment on above:Performed By: #### [id number] #### [facility] ([facility]) [address] [place] [address]GPS (Bld) [#/Vol]5.59 10*6/uLNormal4.20-5.70UnTriHealth Bethesda Butler HospitalComment on above:Performed By: #### [id number] #### [facility] ([facility]) [address] [place] [address]TEH (Bld) [#/Vol]11.66 10*3/uLHigh4.00-10.60UnTriHealth Bethesda Butler HospitalComment on above:Performed By: #### [id number] #### [facility] ([facility]) [address] [place] [address]QXUZYTYOPAHDA METABOLIC PANELon 56-90-7827Ayxlhkr [Mass/Vol]4.1 g/dLNormal3.5-5.7UnTriHealth Bethesda Butler HospitalComment on above:Performed By: #### [id number] #### [facility] ([facility]) [address] [place] [address]ADJ [Catalytic activity/Vol]93 U/WQmljgm06-492RyrdypumuhTriHealth Bethesda Butler HospitalComment on above:Performed By: #### [id number] #### [facility] ([facility]) [address] [place] [address]IEH [Catalytic activity/Vol]28 U/LNormal7-52UnTriHealth Bethesda Butler HospitalComment on above:Performed By: #### [id number] #### [facility] ([facility]) [address] [place] [address]Jgaru gap [Moles/Vol]10 mmol/LNormal7-20UnTriHealth Bethesda Butler HospitalComment on above:Performed By: #### [id number] #### [facility] ([facility]) [address] [place] [address]QKC [Catalytic activity/Vol]16 U/FLhpndy91-53FehrzjpdpbTriHealth Bethesda Butler HospitalComment on above:Performed By: #### [id number] #### [facility] ([facility]) [address] [place] [address]Cztcfcprg [Mass/Vol]0.4 mg/dLNormal0.3-1.0UnTriHealth Bethesda Butler HospitalComment on above:Performed By: #### [id number] #### [facility] ([facility]) [address] [place] [address]Pgztxtk [Mass/Vol]9.6 mg/dLNormal8.6-10.3UnTriHealth Bethesda Butler HospitalComment on above:Performed By: #### [id number] #### [facility] ([facility]) [address] [place], [place] [address]Cxtsppiq [Moles/Vol]103 mmol/YOzarax17-959NnipjqfliqTriHealth Bethesda Butler HospitalComment on above:Performed By: #### [id number] #### [facility] ([facility]) [address] [place], [place] [address]KI7 [Moles/Vol]29 mmol/IOeltdr38-55XvrklwucoyTriHealth Bethesda Butler HospitalComment on above:Performed By: #### [id number] #### [facility] ([facility]) [address] [place], [place] [address]Xhjudsokqd [Mass/Vol]1.34 mg/dLHigh0.70-1.30UnTriHealth Bethesda Butler HospitalComment on above:Performed By: #### [id number] #### [facility] ([facility]) [address] [place], [place] [address]BEMYLTSWGR FILTRATION RATE ML/MIN/1.73 SQ M.VPTTODQJF58.8 mL/min/1.73m*2Normal>60.0UnTriHealth Bethesda Butler HospitalComment on above: Result Comment: [facility]???s estimated glomerular filtration rate (eGFR) [...] potential consequences that do not disproportionately affect anyone group of individuals.Performed By: #### [id number] #### [facility] ([facility]) [address] [place], [place] [address]Lepujmu [Mass/Vol]159 mg/bLCcxg85-062FoovemfljgTriHealth Bethesda Butler HospitalComment on above:Performed By: #### [id number] #### [facility] ([facility]) [address] [place] [address]Zvxhlqlra [Moles/Vol]4.4 mmol/LNormal3.5-5.1UnTriHealth Bethesda Butler HospitalComment on above:Performed By: #### [id number] #### [facility] ([facility]) [address] [place] [address]Iworxjt [Mass/Vol]7.0 g/dLNormal6.0-8.3UnTriHealth Bethesda Butler HospitalComment on above:Performed By: #### [id number] #### [facility] ([facility]) [address] [place] [address]Hstadq [Moles/Vol]138 mmol/ZHeyewj735-772VidtaegliaTriHealth Bethesda Butler HospitalComment on above:Performed By: #### [id number] #### [facility] ([facility]) [address] [place] [address]Tked nitrogen [Mass/Vol]19 mg/dLNormal7-25UnTriHealth Bethesda Butler HospitalComment on above:Performed By: #### [id number] #### [facility] ([facility]) [address] [place] [address]WPFX NITROGEN/CREATININE (MASS RATIO) IN SER/PLAS14.2Normal [facility] HospitalComment on above:Performed By: #### [id number] #### [facility] ([facility]) [address] [place] [address]Ombek [id number] Magaly Yung 1975 M Date Provider Department Center 10/17/2024 2245-[facility]PD LAB RESOURCE [facility] [place] Medical C Family History Problem Relation Age of Onset Coronary artery disease Mother 45 Coronary artery disease Brother 42 Family Status - Relation Status Age at Mother Father Alive Brother DeceasedNormalUniversDayton VA Medical CenterPROTIME-INRon 46-43-3497KZP IN PPP BY COAGULATION ASSAY1.44Vxfa4.90-1.10UnTriHealth Bethesda Butler HospitalComment on above:Result Comment: [facility] RECOMMENDED INR FOR WARFARIN THERAPY CONDITION INR PROPHYLAXIS OF VENOUS THROMBOSIS 2-3 (HIGH-RISK SURGERY) TREATMENT OF VENOUS THROMBOSIS 2-3 TREATMENT OF PULMONARY EMBOLISM 2-3 PREVENTION OF SYSTEMIC EMBOLISM: 2-3 ACUTE MYOCARDIAL INFARCTION TISSUE HEART VALVES VALVULAR HEART DISEASE ATRIAL FIBRILLATION RECURRENT SYSTEMIC EMBOLISM MECHANICAL HEART VALVE 2.5-3.5 FROM: ORAL ANTICOAGULANTS. MECHANISM OF ACTION, CLINICAL EFFECTIVENESS, AND OPTIMAL THERAPEUTIC RANGE. CHEST 1995;108:231S-246S.Performed By: #### [id number] ####[facility] ([facility])[address] [place], [place] [address]CVZTJMLHXDR TIME (PT) IN PPP BY COAGULATION ASSAY14.3 JzzmgtvOxfvnl98.3-14.8UnTriHealth Bethesda Butler HospitalComment on above:Performed By: #### [id number] ####[facility] ([facility])[address] [place], [place] [address]PARJ AND SCREENon 91-76-3751JC SCREEN NegativeNormalUniLutheran HospitalComment on above:Performed By: #### [id number] ####[facility] BLOOD [facility]ANK,ABO group Nom (Bld)ABNormalUnTriHealth Bethesda Butler HospitalComment on above:Performed By: #### [id number] ####[facility]OD [facility],RH TYPE IN BLOODPositiveNormalUniLutheran HospitalComment on above: Performed By: #### [id number] ####[facility] BLOOD [facility],URINALYSISon 90-25-1222BBWRHKSMD, TOTAL PRESENCE IN URINENegativeNormalNegativeUnTriHealth Bethesda Butler Hospital Comment on above:Order Comment: Microscopics not performed on urines with negative chemical reactions unless requested on original order.Performed By: #### [id number] #### [facility] ([facility]) [address] [place], [place] [address]Knoedvw (U)ClearNormalClearUnTriHealth Bethesda Butler Hospital Comment on above:Order Comment: Microscopics not performed on urines with negative chemical reactions unless requested on original order.Performed By: #### [id number] #### [facility] ([facility]) [address] [place], [place] [address]Zxymf (U)YellowNormalYellow, Light Yellow, ColorlessUnTriHealth Bethesda Butler HospitalComment on above:Order Comment: Microscopics not performed on urines with negative chemical reactions unless requested on original order.Performed By: #### [id number] #### [facility] ([facility]) [address] [place], [place] [address]Pnumezj (U) [Mass/Vol]mg/dLAbnormalNormalUniLutheran HospitalComment on above:Order Comment: Microscopics not performed on urines with negative chemical reactions unless requested on original order. Performed By: #### [id number] #### [facility] ([facility]) [address] [place], [place] [address]TJPLHOJASF PRESENCE IN URINENegativeNormalNegativeJ.W. Ruby Memorial HospitalComment on above:Order Comment: Microscopics not performed on urines with negative chemical reactions unless requested on original order. Performed By: #### [id number] #### [facility] ([facility]) [address] [place], [place] [address]Vtffqus Ql (U)NegativeNormalNegativeUnTriHealth Bethesda Butler HospitalComment on above:Order Comment: Microscopics not performed on urines with negative chemical reactions unless requested on original order.Performed By: #### [id number] #### [facility] ([facility]) [address] [place], [place] [address]QZEXXBUFV ESTERASE PRESENCE IN URINE BY TEST STRIPNegativeNormal NegativeUnTriHealth Bethesda Butler HospitalComment on above:Order Comment: Microscopics not performed on urines with negative chemical reactions unless requested on original order.Performed By: #### [id number] #### [facility] ([facility]) [address] [place], [place] [address]EICPZEF PRESENCE IN URINENegativeNormalNegativeUnTriHealth Bethesda Butler HospitalComment on above:Order Comment: Microscopics not performed on urines with negative chemical reactions unless requested on original order. Performed By: #### [id number] #### [facility] ([facility]) [address] [place] [address]xO (U)6.0 [pH]Normal5.0-8.0[facility] Comment on above:Order Comment: Microscopics not performed on urines with negative chemical reactions unless requested on original order.Performed By: #### [id number] #### [facility] ([facility]) [address] [place], [place] [address]Rxahaux (U) [Mass/Vol]NegativeNormalNegativeUnTriHealth Bethesda Butler HospitalComment on above:Order Comment: Microscopics not performed on urines with negative chemical reactions unless requested on original order. Performed By: #### [id number] #### [facility] ([facility]) [address] [place], [place] [address]Irixdhjg gravity (U) [Rel density]1.714Mneqbt3.010-1.030 [facility]. Ruby Memorial HospitalComment on above:Order Comment: Microscopics not performed on urines with negative chemical reactions unless requested on original order.Performed By: #### [id number] #### [facility] ([facility]) [address] [place], [place] [address]YSXMZGLICQEU (MG/DL) IN URINENormalNormalNormalUniversDayton VA Medical CenterComment on above:Order Comment: Microscopics not performed on urines with negative chemical reactions unless requested on original order. Performed By: #### [id number] #### [facility] ([facility]) [address] [place], [place] [address]Fppcqxtidvcogcj [id number] Magaly Yung 1975 M Date Provider Department Center 10/16/202406844-MBBUYNOJARED PAZ C VASC LAB [facility] Family History Problem Relation Age of Onset Coronary artery disease Mother 45 Coronary artery disease Brother 42 Family Status - Relation Status Age at Mother Father Alive Brother Reason for Visit and Comments: HF Inpatient satisfaction survey sent. [Other][facility] CenterAbstracton [id number] Magaly Yung 1975 [facility] Provider Department Center 10/15/2024 2020-GUSTABO CARO HVCTS [facility] Family History Problem Relation Age of Onset Coronary artery disease Mother 45 Coronary artery disease Brother 42 Family Status - Relation Status Age at Mother Father Alive Brother DeceasedNormalUniLutheran [id number] Magaly Yung 1975 [facility] Provider Department Center 10/15/[id number]-DLSWQDYOUNG HESS [facility] AUTH [place] Medical C Family History Problem Relation Age of Onset Coronary artery disease Mother 45 Coronary artery disease Brother 42 Family Status - Relation Status Age at Mother Father Alive Brother DeceasedNormalUniLutheran HospitalFollow-Upon 10-11-2024 Follow-[id number] Magaly Yung 1975 [facility] Provider Department Center 10/11/2024 72145-CUOMREESSENCE [facility] Enrique [facility] Family History Problem Relation Age of Onset Coronary artery disease Mother 45 Coronary artery disease Brother 42 Family Status - Relation Status Age at Mother Father Alive Brother Level of Service:60143 [place] OFFICE/OUTPATIENT ESTABLISHED LOW MDM 20 MIN Reason for Visit and Comments: Coronary Artery Disease [187] - Scheduled for CABG on 10/21/2024 at [facility] Congestive Heart Failure [127] - Denies SOB and LE edema. Hyperlipidemia [182] - He's getting back pain s/p starting atorvastatin. Hypertension [175015] Fatigue [46][facility]36on [id number] patient for Hospital Follow up & pre-op instruction Instructed patient to come to [facility] the week of October 14 [...] Check in at registration desk lobby of [facility] then check in on second floor at surgical waiting room desk. Patient denies chest pain and shortness of breath. Patien requesting to move surgery date up as he is currently off work. I told patient I would relay his request to Dr. Hess.[facility]36Discharge date: 10/04/24 Call date: 10/07/24 Spoke with: patient HF [...] possible to have his surgery moved up. Toe Former [employer] will notify the CT Surgery RN of the patient's question. Pt denied any additional questions or concerns at this time.[facility] Telephoneon [id number] Magaly Yung 1975 Date Provider Department Center 10/07/2024 11198-PHRJVDCJARED PAZ [facility] VAS LAB [place] [facility] No family history on file Reason for Visit and Comments: HF post discharge call. [Other][facility]36on [id number] Discharge Call Good morning, I am Gisela Houser, RN a lead nurse from [facility]. I am calling you to follow [...] discuss? No Patient Name Magaly Yung Date 10/05/24NormalUniLutheran HospitalTecolquitt [facility] 10-05-2024 [id number] Magaly Yung 1975 [facility] Department [place] 10/05/2024 GISELA MARQUEZ RAIN [facility] Family History Problem Relation Age of Onset Coronary artery disease Mother 45 Coronary artery disease Brother 42 Family Status - Relation Status Age at Mother Father Alive Brother Reason for Visit and Comments: Hospital Follow-up [832][facility]30on 10-04-2024 30The patient is Moderately Stable - Low risk of patient condition declining or worsening The patient's goals for the shift include comfort,rest The clinical goals for the shift include stable vitals, comfort Over the shift, the patient did not make progress toward the following goals. Barriers to progression include na. Recommendations to address these barriers include na.[facility]30The patient is Moderately Stable - Low risk [...] are monitored and maintained or improved Outcome: ProgressingNormalUniLutheran HospitalANTI-XA (HEPARIN LEVEL)on [id number] UNFRACTIONATED (U/ML) IN PPP BY CHROMOGENIC METHOD 0.38 IU/mLNormal0.3-0.7UnTriHealth Bethesda Butler HospitalComment on above: Result Comment: Rivaroxaban and Apixaban will interfere with the anti Xa assay used to monitor UFH and LMWH.Performed By: #### [id number] ####[facility] HOSPITAL [facility] ([facility])[address] [place], [place] [address]YXCOSHEov 06-83-6129FRLPFXQqtrcyhdjr planning: to Home Patient came to this admission from their [place] residence in the community, where they live with their spouse and family. - no OT or PT orders in place at this time - LDAs tab not listing any open wounds or closed skin issues at this time - follow up with [facility] Center on AVS - follow up with [facility] on AVSNormalUniversDayton VA Medical Center30on Daily Case Management Update Multidisciplinary rounds have been completed. Barriers to Discharge: Pending clinical course and improvement in clinical condition. Management of chest pain, coronary artery disease: S/p Heart cath. CT surgery starting pre-op workup process. HFrEF: IV diuresis. Current Discharge plan is to return home when medically ready. Diet: Dietary Orders (From admission, onward) Start Ordered 10/02/24 181 Special Kitchen Request Once Comments: Please send [...] the patient Other Other: Heart Failure 10/02/24 0245[facility]30The patient is Moderately Stable - Low risk of patient condition declining or worsening The patient's goals for the shift include comfort, rest The clinical goals for the shift include stable vitals, comfort Over the shift, the patient did not make progress toward the following goals. Barriers to progression include. Recommendations to address these barriers include.NormalUnTriHealth Bethesda Butler Hospital30The patient is Moderately Stable - Low risk [...] are monitored and maintained or improved Outcome: ProgressingNoOhio Valley Surgical HospitalANTI-XA (HEPARIN LEVEL)on 81-87-5012NTVXEAX UNFRACTIONATED (U/ML) IN PPP BY CHROMOGENIC METHOD 0.37 IU/mLNormal0.3-0.7J.W. Ruby Memorial HospitalComment on above: Result Comment: Rivaroxaban and Apixaban will interfere with the anti Xa assay used to monitor UFH and LMWH.Performed By: #### [id number] #### [facility] ([facility]) [address] [place], [place] [address]RHLXHOV UNFRACTIONATED (U/ML) IN PPP BY CHROMOGENIC METHOD0.32 IU/mLNormal0.3-0.7J.[facility]. Ruby Memorial HospitalComment on above:Result Comment: Rivaroxaban and Apixaban will interfere with the anti Xa assay used to monitor UFH and LMWH.Performed By: #### [id number] ####[facility] ([facility])[address] [place], [place] [address]VMESBOR UNFRACTIONATED (U/ML) IN PPP BY CHROMOGENIC METHOD0.34 IU/mLNormal0.3-0.7UnTri[facility] Hospital Comment on above:Result Comment: Rivaroxaban and Apixaban will interfere with the anti Xa assay used to monitor UFH and LMWH.Performed By: #### [id number] ####[facility] ([facility])[address] [place], [place] [address]QRWWSFQ UNFRACTIONATED (U/ML) IN PPP BY CHROMOGENIC METHOD0.22 IU/mLLow0.3-0.7UnTriHealth Bethesda Butler HospitalComment on above:Order Comment: Check anti-Xa level every 6 hours while on heparin infusion, or per protocol.Result Comment: Rivaroxaban and Apixaban will interfere with the anti Xa assay used to monitor UFH and LMWH.Performed By: #### [id number] ####[facility] ([facility])[address], [place] [address]RZJLQ METABOLIC PANELon 00-55-1412Fjeil gap [Moles/Vol]13 mmol/LNormal7-20UnTriHealth Bethesda Butler HospitalComment on above:Performed By: #### [id number] #### [facility] ([facility]) [address] [place], [place] [address]Yyrzxti [Mass/Vol]9.2 mg/dLNormal8.6-10.3UnTriHealth Bethesda Butler HospitalComment on above:Performed By: #### [id number] #### [facility] ([facility]) [address] [place], [place] [address]Mksdocob [Moles/Vol]102 mmol/HRuqqaq36-084JeokhngyrmTriHealth Bethesda Butler HospitalComment on above:Performed By: #### [id number] #### [facility] ([facility]) [address] [place], [place] [address]GK0 [Moles/Vol]30 mmol/YUkxccb74-74WlezyddujrTriHealth Bethesda Butler HospitalComment on above:Performed By: #### [id number] #### [facility] ([facility]) [address] [place], [place] [address]Gcffavmgqc [Mass/Vol]1.17 mg/dLNormal0.70-1.30UnTriHealth Bethesda Butler HospitalComment on above:Performed By: #### [id number] #### [facility] ([facility]) [address] [place] [address]HDHKDAWZGP FILTRATION RATE ML/MIN/1.73 SQ M.ZQSIGCBAO34.4 mL/min/1.73m*2Normal>60.0UnTriHealth Bethesda Butler HospitalComment on above: Result Comment: The [facility]???s estimated glomerular filtration rate (eGFR) [...] potential consequences that do not disproportionately affect anyone group of individuals.Performed By: #### [id number] #### [facility] ([facility]) [address] [place] [address]Vcgswsy [Mass/Vol]122 mg/yDVmzr05-207DvofaficblTriHealth Bethesda Butler HospitalComment on above:Performed By: #### [id number] #### [facility] ([facility]) [address] [place] [address]Eawazjovd [Moles/Vol]3.7 mmol/LNormal3.5-5.1UnTriHealth Bethesda Butler HospitalComment on above:Performed By: #### [id number] #### [facility] ([facility]) [address] [place] [address]Xzakin [Moles/Vol]141 mmol/LUktycs885-088NuvunjxdutTriHealth Bethesda Butler HospitalComment on above:Performed By: #### [id number] #### [facility] ([facility]) [address] [place] [address]Swcd nitrogen [Mass/Vol]21 mg/dLNormal7-25UnTriHealth Bethesda Butler HospitalComment on above:Performed By: #### [id number] #### [facility] ([facility]) [address] [place] [place] [address]USTO NITROGEN/CREATININE (MASS RATIO) IN SER/PLAS17.9Normal [facility] Memorial HospitalComment on above:Performed By: #### [id number] #### [facility] ([facility]) [address] [place] [address]TMUve 02-82-7514Lzkawiqaqiy distribution width (RBC) [Ratio]14.0 %Aokccj10.5-15.0UnTriHealth Bethesda Butler HospitalComment on above:Performed By: #### [id number] #### [facility] ([facility]) [address] [place], [place] [address]TOXZVVXVWIK MEAN CORPUSCULAR HEMOGLOBIN CONCENTRATION (G/DL) BY SFJDATYAV54.0 g/wIJclbyx92.0-35.0UnTriHealth Bethesda Butler HospitalComment on above:Performed By: #### [id number] #### [facility] ([facility]) [address] [place], [place] [address]Yilseqpnxc (Bld) [Volume fraction]49.7 %Ulqskx65.0-50.0 [facility] Memorial HospitalComment on above:Performed By: #### [id number] #### [facility] ([facility]) [address] [place], [place] [address]Zjuxnhksgu (Bld) [Mass/Vol]15.9 g/gUHbxnpo09.0-17.0UnTriHealth Bethesda Butler HospitalComment on above:Performed By: #### [id number] #### [facility] ([facility]) [address] [facility] [place], [place] [address]DWB (RBC) [Entitic mass]28.0 qsDllkek24.0-33.0UnTriHealth Bethesda Butler HospitalComment on above:Performed By: #### [id number] #### [facility] ([facility]) [address] [place], [place] [address]YSY (RBC) [Entitic vol]87.7 iQPixmwb62.0-98.0UnTriHealth Bethesda Butler HospitalComment on above:Performed By: #### [id number] #### [facility] ([facility]) [address] [place], [place] [address]OVWUCUMDF (10*3/UL) IN BLOOD AUTOMATED [id number] 10*3/uLNormal 150-400UnTriHealth Bethesda Butler HospitalComment on above:Performed By: #### [id number] #### [facility] ([facility]) [address] [place] [address]QIK (Bld) [#/Vol]5.67 10*6/uLNormal4.20-5.70UnTriHealth Bethesda Butler HospitalComment on above:Performed By: #### [id number] #### [facility] ([facility]) [address] [place] [address]JAJ (Bld) [#/Vol]10.55 10*3/uLNormal4.00-10.60UnTriHealth Bethesda Butler HospitalComment on above:Performed By: #### [id number] #### [facility] ([facility]) [address] [place], [place] [address]XVGMXIMza 41-07-4336FYPAUHTDxzwhkadd consult to Cardiothoracic Surgery Consult performed by: Nida Landa CNP Consult ordered by: Enriqueta Keene MD Reason for consult: Severe Multivessel Coronary Artery Disease Cardiothoracic Surgery Consultation Note 10/03/2024 Room: [address] [place] [address] Reason For Consult evaluate for CABG Referring Provider: Merrill Hernández MD History Of Present Illness Magaly Yung is a 49 y.o. male with PMH of smoker, obesity, strong family history of CAD who presented to [facility] as a direct transfer where he was experiencing intermittent chest pain, described as anterior chest dull to pressure-like associated with dyspnea radiating to left. [facility] labs remarkable for BNP 448, [...] is somewhat limited. He was transferred to [facility] for cardiac catherization. Underwent cardiac cath yesterday with Dr. Enriqueta Keene and was found to have severe multivessel CAD. CT Surgery was consulted for surgical evaluation and recommendations. Seen bedside with Dr. Hess this morning. Remains on continuous heparin infusion. Denies chest pain or SOB. Most recent troponin 8. Assessment: Principal Problem: Coronary artery disease of [place] artery of [place] heart with stable angina pectoris Active Problems: NSTEMI (non-ST elevated myocardial infarction) ([facility]) Primary hypertension HFrEF (heart failure with reduced ejection fraction) ([facility]) Obesity Former smoker Plan : -Patient seen and evaluated by Cardiothoracic Team. Dr. Young Hess personally examined the patient and reviewed The Cardiac Catherization, Echocardiogram, CXR, and Other Diagnostic Testing. Findings discussed with patient. Explained current disease process and reviewed treatment options. -CT Surgery Recommendation: Coronary Artery Bypass Grafting. Echocardiogram from [place] not transferred over, will obtain one this [...] 50.7%, WBC Count: 13.7 10???/?L, Platelet Count: 135793 cells/?L PreOp Medications: Oral diabetes control Substance Abuse: Former smoker Risk Factors / Comorbidities: Diabetes Mellitus , Hypertension, Family Hx of CAD Pulmonary RF: Moderate CLD Cardiac Status: Acute heart failure, NYHA Class III, Ejection Fraction = 30% Coronary Artery Disease: 3 vessels diseased, Proximal LAD Stenosis >= 70%, Non-ST Elevation NM, NM: 1 to 7 Days -Pre-Op Testing needed [...] at 10/02/24 0941 Revie (more content not included)...NormalUnTriHealth Bethesda Butler Hospital MAGNESIUMon 62-67-7009Eguupikwt [Mass/Vol]2.3 mg/dLNormal1.9-2.7UnTriHealth Bethesda Butler HospitalComment on above:Performed By: #### [id number] #### [facility] HOSPITAL [facility] (BEAKER) [address] [place], [place] [address]YEJPQEFOYYnl 88-88-9540MVRPVNBUH, TOTAL PRESENCE IN URINE NegativeNormalNegativeUnTriHealth Bethesda Butler HospitalComment on above:Order Comment: Microscopics not performed on urines with negative chemical reactions unless requested on original order.Performed By: #### [id number] #### [facility] ([facility]) [address] [place], [place] [address]Hlifmor (U)ClearNormalClearJ.W. Ruby Memorial Hospital Comment on above:Order Comment: Microscopics not performed on urines with negative chemical reactions unless requested on original order.Performed By: #### [id number] #### [facility] ([facility]) [address] [place], [place] [address]Xzvtb (U)Light-YellowNormalColorless, Yellow, Light-Yellow [facility] HospitalComment on above:Order Comment: Microscopics not performed on urines with negative chemical reactions unless requested on original order.Performed By: #### [id number] #### [facility] ([facility]) [address] [place], [place] [address]Xfjijmb (U) [Mass/Vol]mg/dLAbnormalNormalUniLutheran HospitalComment on above:Order Comment: Microscopics not performed on urines with negative chemical reactions unless requested on original order. Performed By: #### [id number] #### [facility] ([facility]) [address] [place], [place] [address]BCBEIPAVYB PRESENCE IN URINENegativeNormalNegativeJ.W. Ruby Memorial HospitalComment on above:Order Comment: Microscopics not performed on urines with negative chemical reactions unless requested on original order. Performed By: #### [id number] #### [facility] ([facility]) [address] [place], [place] [address]Ncjyaxl Ql (U)NegativeNormalNegativeJ.W. Ruby Memorial HospitalComment on above:Order Comment: Microscopics not performed on urines with negative chemical reactions unless requested on original order.Performed By: #### [id number] #### [facility] ([facility]) [address] [place], [place] [address]GXBOKLYOE ESTERASE PRESENCE IN URINE BY TEST STRIPNegativeNormal NegativeJ.W. Ruby Memorial HospitalComment on above:Order Comment: Microscopics not performed on urines with negative chemical reactions unless requested on original order.Performed By: #### [id number] #### [facility] ([facility]) [address] [place], [place] [address]XZHIZUW PRESENCE IN URINENegativeNormalNegativeUnTriHealth Bethesda Butler HospitalComment on above:Order Comment: Microscopics not performed on urines with negative chemical reactions unless requested on original order. Performed By: #### [id number] #### [facility] ([facility]) [address] [place], [place] [address]wP (U)6.0 [pH]Normal5.0-8.0[facility] Comment on above:Order Comment: Microscopics not performed on urines with negative chemical reactions unless requested on original order.Performed By: #### [id number] #### [facility] ([facility]) [address] [place], [place] [address]Aerkhlj (U) [Mass/Vol]NegativeNormalNegativeUnTriHealth Bethesda Butler HospitalComment on above:Order Comment: Microscopics not performed on urines with negative chemical reactions unless requested on original order. Performed By: #### [id number] #### [facility] ([facility]) [address] [place], [place] [address]Iqygqnlg gravity (U) [Rel density]1.400Llzmso4.010-1.030 J.[facility]. Ruby Memorial HospitalComment on above:Order Comment: Microscopics not performed on urines with negative chemical reactions unless requested on original order.Performed By: #### [id number] #### [facility] ([facility]) [address] [place], [place] [address]SVJUDIOKOZAZ (MG/DL) IN URINE2.0 mg/dLAbnormalNormalUniversDayton VA Medical CenterComment on above:Order Comment: Microscopics not performed on urines with negative chemical reactions unless requested on original order.Performed By: #### [id number] #### [facility] ([facility]) [address] [place], [place] [address]sh [id number] Case Management Update Multidisciplinary rounds have been completed. Barriers to Discharge: Patient is a transfer from [facility] for chest pain, cardiology consulted and plan to take patient for heart cath. Toe Former Stitchdowns did read in previous chart notes As above also would recommend outpatient sleep study due to this marketing underwriter reached out to primary team about getting pulmonary Navigator consult, waiting to hear back. Discharge dispo: plan at this time is for patient to discharge home when medically ready. Toe Former Stitchdowns heard back from Dr Yu, and was given order to pulmonary navigation consult. Toe Former Stitchdowns placed order. Diet: Dietary Orders (From admission, [...] the patient Other Other: Heart Failure 10/02/24 0245NormalUniLutheran Hospital30The patient is Moderately Stable - Low risk of patient condition declining or worsening The patient's goals for the shift include comfort The clinical goals for the shift include stable vitals Over the shift, the patient did not make progress toward the following goals. Barriers to progression include. Recommendations to address these barriers include.NormalUnTriHealth Bethesda Butler Hospital30The patient is Moderately Stable - Low risk of patient condition declining or worsening The patient's goals for the shift include comfort The clinical goals for the shift include stable vitals Problem: Pain - Adult Goal: Verbalizes/displays adequate comfort level or baseline comfort level Outcome: Progressing Flowsheets (Taken 10/02/2024 0241) Verbalizes/displays adequate comfort level or baseline comfort [...] and behaviors that affect risk of falls [place] fall precautions as indicated by assessment Educate [...] and comorbid conditions and prevent exacerbation or deteriorationNormalUniCleveland Clinic Foundation [id number] PARTIAL THROMBOPLASTIN TIME IN PPP BY COAGULATION ASSAY28.5 IgvdwgsIkzujq86.0-35.0UnTriHealth Bethesda Butler Hospital Comment on above:Order Comment: Baseline aPTT before initiating heparin infusion.Result Comment: Clinical significance of the APTT is questionable in the presence of heparin.Performed By: #### [id number] #### [facility] ([facility]) [address] [place] [address]GJHPDUXUN PARTIAL THROMBOPLASTIN TIME IN PPP BY COAGULATION ASSAY28.2 KcebjwzLoiglq66.0-35.0UnTriHealth Bethesda Butler HospitalComment on above:Order Comment: Baseline aPTT before initiating heparin infusion.Result Comment: Clinical significance of the APTT is questionable in the presence of heparin.Performed By: #### [id number] #### [facility] ([facility]) [address] [place], [place] [address]Y-PDHX NATRIURETIC PEPTIDEon 43-92-5295Qbdsnugggxg peptide B (Bld) [Mass/Vol]121 pg/mLHigh0-100UnTriHealth Bethesda Butler HospitalComment on above:Performed By: #### [id number] ####[facility] ([facility])[address] [place], [place] [address]XOF WITH AUTO DIFFERENTIALon 15-30-9611Yqwgjegyn (Bld) [#/Vol]0.10 10*3/uLNormal0.00-0.20UnTriHealth Bethesda Butler HospitalComment on above:Performed By: #### [id number] #### [facility] ([facility]) [address] [place], [place] [address]Zjwopmkqk/100 WBC (Bld)0.7 %Normal0.0-1.0UnTriHealth Bethesda Butler HospitalComment on above:Performed By: #### [id number] #### [facility] ([facility]) [address] [place], [place] [address]Vijpjtlojkb (Bld) [#/Vol]0.44 10*3/uLNormal0.00-0.50UnTriHealth Bethesda Butler HospitalComment on above:Performed By: #### [id number] #### [facility] ([facility]) [address] [place] [address]Yzehgbtluqk/100 WBC (Bld)3.2 %Normal0.0-6.0UnTriHealth Bethesda Butler HospitalComment on above:Performed By: #### [id number] #### [facility] ([facility]) [address] [place], [place] [address]Lgfvwrmnrga distribution width (RBC) [Ratio]13.8 %Normal 11.5-15.0J.W. Ruby Memorial HospitalComment on above:Performed By: #### [id number] #### [facility] ([facility]) [address] [place] [address]KLCISKADJAN MEAN CORPUSCULAR HEMOGLOBIN CONCENTRATION (G/DL) BY NVLGDWHDI45.0 g/xUQlgogx18.0-35.0UnTriHealth Bethesda Butler HospitalComment on above:Performed By: #### [id number] #### [facility] ([facility]) [address] [place] [address]Rbvwwuciun (Bld) [Volume fraction]50.7 %High39.0-50.0UnTriHealth Bethesda Butler HospitalComment on above:Performed By: #### [id number] #### [facility] ([facility]) [address] [place] [address]Wptvwtdtyu (Bld) [Mass/Vol]16.2 g/hGCobjvt68.0-17.0UnTriHealth Bethesda Butler HospitalComment on above:Performed By: #### [id number] #### [facility] ([facility]) [address] [place] [address]Inqpkivc granulocytes (Bld) [#/Vol]0.06 10*3/uLNormal0.00-0.20 [facility] HospitalComment on above:Performed By: #### [id number] #### [facility] ([facility]) [address] [place] [address]Nkwaufic granulocytes/100 WBC (Bld)0.4 %Normal0.0-1.0UnTriHealth Bethesda Butler HospitalComment on above:Performed By: #### [id number] #### [facility] ([facility]) [address] [place] [address]Qwzgznkobpp (Bld) [#/Vol]3.01 10*3/uLNormal1.20-4.00UnTriHealth Bethesda Butler HospitalComment on above:Performed By: #### [id number] #### [facility] ([facility]) [address] [place] [address]Ymmchzpoidw/100 WBC (Bld)21.9 %Upxtya00.0-45.0UnTriHealth Bethesda Butler HospitalComment on above:Performed By: #### [id number] #### [facility] ([facility]) [address] [address]UCZ (RBC) [Entitic mass]27.6 qwXudbpy71.0-33.0UnTriHealth Bethesda Butler HospitalComment on above:Performed By: #### [id number] #### [facility] ([facility]) [address] [facility] [place], [place] [address]FDK (RBC) [Entitic vol]86.4 zVIpvsew00.0-98.0UnTriHealth Bethesda Butler HospitalComment on above:Performed By: #### [id number] #### [facility] ([facility]) [address] [place], [place] [address]Uvvfljosd (Bld) [#/Vol]0.95 10*3/uLNormal0.10-1.00UnTriHealth Bethesda Butler HospitalComment on above:Performed By: #### [id number] #### [facility] ([facility]) [address] [place], [place] [address]Pfcfhmrgh/100 WBC (Bld)6.9 %Normal5.0-12.0UnTriHealth Bethesda Butler HospitalComment on above:Performed By: #### [id number] #### [facility] ([facility]) [address] [place], [place] [address]Flaxcwmyhwl (Bld) [#/Vol]9.18 10*3/uLHigh1.60-7.60UnTriHealth Bethesda Butler HospitalComment on above:Performed By: #### [id number] #### [facility] ([facility]) [address] [place] [address]Qtnmtpbvhfk/100 WBC (Bld)66.9 %Lufiml50.0-72.0UnTriHealth Bethesda Butler HospitalComment on above:Performed By: #### [id number] #### [facility] ([facility]) [address] [address]LCCJ (PER 100 WBCS) BY AUTOMATED COUNT0.0 %Fvrpwp7FwtrskrgfzTriHealth Bethesda Butler HospitalComment on above:Performed By: #### [id number] #### [facility] ([facility]) [address] [address]KUNUCGGEW (10*3/UL) IN BLOOD AUTOMATED [id number] 10*3/uLNormal 150-400UnTriHealth Bethesda Butler HospitalComment on above:Performed By: #### [id number] #### [facility] ([facility]) [address] [place] [address]KMD (Bld) [#/Vol]5.87 10*6/uLHigh4.20-5.70UnTriHealth Bethesda Butler HospitalComment on above:Performed By: #### [id number] #### [facility] ([facility]) [address] [address]IKR (Bld) [#/Vol]13.74 10*3/uLHigh4.00-10.60UnTriHealth Bethesda Butler HospitalComment on above:Performed By: #### [id number] #### [facility] ([facility]) [address] [place] [address]UTBWLVTQUCMRM METABOLIC PANELon 59-08-6183Ymhcrik [Mass/Vol]4.3 g/dLNormal3.5-5.7UnTriHealth Bethesda Butler HospitalComment on above:Performed By: #### [id number] ####[facility] ([facility])[address] [place] [address] ALP [Catalytic activity/Vol]80 U/KAqupsz14-784NatyysdxuwTriHealth Bethesda Butler HospitalComment on above:Performed By: #### [id number] ####[facility] ([facility])[address] [place], [place] [address]ZWR [Catalytic activity/Vol]22 U/L Normal7-52UnTriHealth Bethesda Butler HospitalComment on above:Performed By: #### [id number] ####[facility] ([facility]ER)[address] [place], [place] [address]Exjnm gap [Moles/Vol]11 mmol/LNormal7-20UnTriHealth Bethesda Butler HospitalComment on above:Performed By: #### [id number] ####[facility] ([facility])[address] [place], [place] [address]ZKL [Catalytic activity/Vol]17 U/EZzypxm98-98VtjuxhsrljTriHealth Bethesda Butler HospitalComment on above:Performed By: #### [id number] ####[facility] ([facility]ER)[address] [place], [place] [address]Veyaykkie [Mass/Vol]0.6 mg/dL Normal0.3-1.0UnTriHealth Bethesda Butler HospitalComment on above:Performed By: #### [id number] ####[facility] ([facility]ER)[address] [place] [address] Calcium [Mass/Vol]9.2 mg/dLNormal8.6-10.3UnTri[facility] Hospital Comment on above:Performed By: #### [id number] ####[facility] ([facility])[address] [place], [place] [address]Ttvjssbm [Moles/Vol]102 mmol/JXkaylb39-792 [facility] Ruby Memorial HospitalComment on above:Performed By: #### [id number] ####[facility] ([facility])[address] [place], [place] [address]LQ2 [Moles/Vol] 29 mmol/VUdegiy60-57WmdfiwhxqgTriHealth Bethesda Butler HospitalComment on above: Performed By: #### [id number] ####[facility] ([facility])[address] [place], [place] [address]Kkrkmxaise [Mass/Vol]1.11 mg/dLNormal0.70-1.30UnTriHealth Bethesda Butler HospitalComment on above:Performed By: #### [id number] ####[facility] ([facility])[address] [place], [place] [address]XUBGJNOCUQ FILTRATION RATE ML/MIN/1.73 SQ M.QLUALPZTA98.4 mL/min/1.73m*2Normal>60.0UnTriHealth [facility] Hospital Comment on above:Result Comment: The [facility]???s estimated glomerular filtration rate (eGFR) will no longer include consideration of race in its calculation. The National Kidney Foundation???s eGFR Task Force developed new recommendations for the estimation of the glomerular filtration ra te in the [place] They recommend immediate implementation of the new equation refit without the race variable in all laboratories because the calculation does not include race. In addition to not including race in the calculation and reporting, it included diversity in its development, and has acceptable performance characteristics and potential consequences that do not disproportionately affect anyone group of individuals.Performed By: #### [id number] ####[facility] ([facility])[address] [place], [place] [address]Yfuelcw [Mass/Vol]181 mg/eOOksd89-998ZiobkzsygoTriHealth Bethesda Butler HospitalComment on above:Performed By: #### [id number] ####[facility] ([facility])[address] [place], [place] [address]Rsvgercrb [Moles/Vol]3.4 mmol/LLow3.5-5.1UnTriHealth Bethesda Butler HospitalComment on above:Performed By: #### [id number] ####[facility] ([facility])[address] [place], [place] [address]Rccsyed [Mass/Vol]7.0 g/dLNormal 6.0-8.3UnTriHealth Bethesda Butler HospitalComment on above:Performed By: #### [id number] ####[facility] ([facility])[address] [place], [place] [address]Bysahn [Moles/Vol]139 mmol/BIorqio989-825BozitocdirTriHealth Bethesda Butler HospitalComment on above:Performed By: #### [id number] ####[facility] ([facility])[address] [place], [place] [address]Plzh nitrogen [Mass/Vol]18 mg/dLNormal7-25UnTriHealth Bethesda Butler HospitalComment on above:Performed By: #### [id number] ####[facility] ([facility])[address], [place] [address]BRDX NITROGEN/CREATININE (MASS RATIO) IN SER/PLAS16.2NProMedica Fostoria Community HospitalComment on above: Performed By: #### [id number] ####[facility] (DHR[facility])[address] [facility] [place], [place] [address]RGOSGILpf 31-97-5699MOEGYMPTxprx Nutrition Assessment: Name: Magaly Yung Date: 1975 Date of Visit: 10/02/24 Admission Dx: NSTEMI (non-ST elevated myocardial infarction) ([facility]) [I21.4] Reason for assessment: MD referral [...] CHOL 211 (H) 10/02/2024357 HDL 21 (L) 10/02/20248 Allergies: Allergies Allergen Reactions Penicillins Anaphylaxis Nutrition [...] day. 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 [...] Nutrition Therapy handout fr (more content not included)...NormalUnTriHealth Bethesda Butler HospitalCONSULT Attestation signed by Marko Smith MD at 10/02/2024 7:53 PM (Updated) I personally spoke with and examined Mr. Yung this morning with Dr. Montero. He has severe LV dysfunction the setting of angina at low levels of activity such as walking across his trailer. My diagnoses are acute systolic heart failure in the setting of a non-ST elevation NM. We discussed the expected risks and benefits [...] use disorder for 20 years, presenting from [facility] with chest pain Patient reports that he has been endorsing continued chest pain of 1 week duration, it become worse yesterday so he went to [facility]. Associated with diaphoresis, feels like a pressure, 5 out of 10, no radiation. Patient has a brother that with heart attack at the age of 42, mother at age of 47, at [facility] patient echo showed heart failure with [...] Value Ventricular Rate 77 Atrial Rate 77 CA Interval 186 QRS DURATION 102 QT Interval 422 QTC CALCULATION(BAZETT) 477 P [place] 51 R-Wexford 34 T Wave [place] 54 Impression Sinus rhythm with occasional Premature [...] failure with reduced ejection fraction, EF at [facility] 15 to 20% on 10/01/2024 Tobacco [...] least in part, completed using a voice deckhand clam dredge system. Every effort was made to ensure accuracy. However, inadvertent computerized deckhand clam dredge errors may be present. Vic Montero PGY-2, internal medicine resident [facility].oNormOhioHealth Berger HospitalHEMOGLOBIN A1Con 54-25-8245Vasqmci [Mass/Vol]148 mg/dLNoOhio Valley Surgical Hospital Comment on above:Performed By: #### [id number] ####[facility] (BEGigalocal)[address] [place], [place] [address]UrR7a (Bld) [Mass fraction]6.8 %High4.0-6.0 [facility] Memorial HospitalComment on above:Performed By: #### [id number] ####[facility] (BEAKER)[address] [place], [place] [address]GHRZ SENSITIVITY TROPONIN Ion 18-42-7904XK TROPONIN I (NG/L)8 ng/LNormal<20J.[facility]. Ruby Memorial HospitalComment on above:Performed By: #### [id number] #### [facility] ([facility]) [address] [place], [place] [address]GI TROPONIN I (NG/L)10 ng/LNormal<20UnTriHealth Bethesda Butler HospitalComment on above:Performed By: #### [id number] #### [facility] ([facility]) [address] [place], [place] [address]KX TROPONIN I (NG/L)11 ng/LNormal<20UnTriHealth Bethesda Butler HospitalComment on above:Performed By: #### [id number] ####[facility] ([facility])[address] [place], [place] [address]WP TROPONIN I (NG/L)10 ng/LNormal<20 [facility] HospitalComment on above:Performed By: #### [id number] ####[facility] ([facility])[address] [place], [place] [address]RZna 10-02-2024 HPH&P reviewed. The patient was examined and there are no changes to the H&P. Proceed with coronary angiogram for unstable anginaNormalUniverswayne healthcare main campus of [facility]arro Regional HospitalLIPID PANELon 31-71-2511RGYL/HDL10.0 mg/dLNormalUniversDayton VA Medical CenterComment on above:Performed By: #### [id number] #### [facility] ([facility]) [address] [place], [place] [address]Lhjnttdargg [Mass/Vol]211 mg/tLRtyj062-119YiljoijbeqTriHealth Bethesda Butler HospitalComment on above:Performed By: #### [id number] #### [facility] ([facility]) [address] [place], [place] [address]Icrrppwox [Mass/Vol]132 mg/dLNormal<150UnTriHealth Bethesda Butler HospitalComment on above:Result Comment: TRIGLYCERIDE REFERENCE RANGE: 20 YEARS AND OLDER CARDIOVASCULAR RISK LESS THAN 150 mg/dL LOW RISK 150 TO 199 mg/dL BORDERLINE RISK 200 mg/dL AND GREATER HIGH RISKPerformed By: #### [id number] #### [facility] ([facility]) [address] [place] [address]Xqxehrwda [Mass/Vol]164 mg/dLHigh0-160UnTriHealth Bethesda Butler HospitalComment on above:Performed By: #### [id number] #### [facility] ([facility]) [address] [place] [address]Bcqcjecjx [Mass/Vol]21 mg/cQSbz42-48BkbsdirevoTriHealth Bethesda Butler HospitalComment on above:Performed By: #### [id number] #### [facility] ([facility]) [address] [place] [address]HLX HDL CHOL. (LDL+VLDL)190NormalUniversDayton VA Medical CenterComment on above:Performed By: #### [id number] #### [facility] ([facility]) [address] [place], [place] [address]GDZHT VLDL-C26 mg/dLNormal0-40UnTriHealth Bethesda Butler HospitalComment on above:Performed By: #### [id number] #### [facility] ([facility]) [address] [place] [address]FWWXTUBW COUNTon 06-76-4829NJGHALOLS (10*3/UL) IN BLOOD AUTOMATED [id number] 10*3/iKQtxfal641-887UqjjuwyhwjTriHealth Bethesda Butler Hospital Comment on above:Performed By: #### [id number] #### [facility] ([facility]) [address] [place], [place] [address]EPSVCMPKC (10*3/UL) IN BLOOD AUTOMATED [id number] 10*3/uLNormal 150-400UnTriHealth Bethesda Butler HospitalComment on above:Performed By: #### [id number] ####[facility] ([facility])[address] [facility] [place]Rob[place], [place] [address]GBI3 REFLEX TO FT4on 31-21-5766GTVSDHCSANU (MIU/L) IN SER/PLAS BY DETECTION LIMIT <= 0.05 MIU/L3.25 mIU/LNormal0.34-5.60UnTriHealth Bethesda Butler HospitalComment on above:Performed By: #### [id number] ####[facility] DEMARIO)[address] [place] [address]QBVLG-75 Antigenon 79-53-1670ZQWVG-19 AntigenReason for Exam Fever, unspecified fever cause;Body aches Nasal Reason for Exam: Fever, unspecified fever cause;Body aches Healthcare Worker?: No : Nasal Ed Reference Ed Reference Negative SARS-CoV+SARS-CoV-2 (COVID-19) Ag [Presence] in Respiratory specimen by Rapid immunoassay Negative for SARS Antigen by [facility] COVID19 Blank Space Ed Disclaimer Negative results, from patients with [...] Disclaimer consistent with COVID-19. COVID19 Blank Space Ed Disclaimer The Ed SARS Antigen SYED does not differentiate Ed Disclaimer between SARS-CoV and SARS-CoV-2. COVID19 Blank Space Ed Disclaimer This test was developed and its performance Ed Disclaimer characteristic determined by [employer] and Ed Disclaimer validated at [facility]. This Ed Disclaimer test has not been [...] is terminated or revoked sooner. PERFORMED BY: [address] [address] PATHOLOGIST ROD STRAIGHTENER PATTI DE M.D.NormalHolzer Health SystemComment on above: Performed By: #### SOFIANEG, COVID-19 ED #### [facility] [address] [place] [address] USASofia Ag Negativeon 81-93-6011Prduf Ag NegativeNegative NormalNegativeHolzer Health SystemComment on above:Result Comment: This is a duplicate Ed SARS Antigen (SYED) result to be used for statistical tracking purpose only. PERFORMED BY: [facility] [address] [place] [address] PATHOLOGIST ROD STRAIGHTENER PATTI DE M.D.Performed By: #### MARCELINA, COVID-19 ED #### [place] [address] USAComplete Blood Count Auto Diffon 36-76-1020Eaquqnrvk (Bld) [#/Vol]0.1 10*3/uLNormal0.0-0.2FUC West Chester HospitalComment on above:Order Comment: Reason for Exam Essential hypertensionResult Comment: PERFORMED BY: [place] [address] PATHOLOGIST ROD STRAIGHTENER PATTI DE M.D.Performed By: #### [id number], CMP, CBC, LIPID #### [place] [address] USABasophils/100 WBC (Bld)1.0 %Normal.[facility] SystemComment on above:Order Comment: Reason for Exam Essential hypertensionPerformed By: #### [id number], CMP, CBC, LIPID #### [place] [address] USAEosinophils (Bld) [#/Vol]0.4 10*3/uLNormal0.0-0.45 [facility] SystemComment on above:Order Comment: Reason for Exam Essential hypertensionPerformed By: #### [id number], CMP, CBC, LIPID #### [place] [address] USAEosinophils/100 WBC (Bld)4.7 %Normal.[facility] Health SystemComment on above:Order Comment: Reason for Exam Essential hypertensionPerformed By: #### [id number], CMP, CBC, LIPID #### [place] [address] USAErythrocyte distribution width (RBC) [Ratio]14.0 %Normal 12.0-14.8Hol[facility] Health SystemComment on above:Order Comment: Reason for Exam Essential hypertensionPerformed By: #### [id number], CMP, CBC, LIPID #### [place] [address] USAHematocrit (Bld) [Volume fraction]47.4 %Fjmppk59.8-50.0 [facility] SystemComment on above:Order Comment: Reason for Exam Essential hypertensionPerformed By: #### [id number], CMP, CBC, LIPID #### [facility] [address] [place] [address] USAHemoglobin (Bld) [Mass/Vol]16.3 g/bHZlbfsu77.0-17.0 [facility] SystemComment on above:Order Comment: Reason for Exam Essential hypertensionPerformed By: #### [id number], CMP, CBC, LIPID #### [facility] [address] [place] [address] USALymphocytes (Bld) [#/Vol]2.3 10*3/uLNormal1.00-4.8 [facility] SystemComment on above:Order Comment: Reason for Exam Essential hypertensionPerformed By: #### [id number], CMP, CBC, LIPID #### [facility] [address] [place] [address] USALymphocytes/100 WBC (Bld)26.7 %Normal.Holzer Health SystemComment on above:Order Comment: Reason for Exam Essential hypertensionPerformed By: #### [id number], CMP, CBC, LIPID #### [facility] [address] [place] [address] USAMCH (RBC) [Entitic mass]30.8 jpTaecvv73.5-35.2FUC [facility] HospitalComment on above:Order Comment: Reason for Exam Essential hypertensionPerformed By: #### [id number], CMP, CBC, LIPID #### [facility] [address] [place] [address] USAMCV (RBC) [Entitic vol]89.7 aQSrngyl44.5-101Holzer Health SystemComment on above:Order Comment: Reason for Exam Essential hypertensionPerformed By: #### [id number], CMP, CBC, LIPID #### [facility] [address] [place] [address] USAMean Corpuscular HGB Conc34.4 g/kFNmglgm35.5-35.6FUC [facility] HospitalComment on above:Order Comment: Reason for Exam Essential hypertensionPerformed By: #### [id number], CMP, CBC, LIPID #### [facility] [address] [place] [address] USAMonocytes (Bld) [#/Vol]0.9 10*3/uLHigh0.0-0.8Holzer Health SystemComment on above:Order Comment: Reason for Exam Essential hypertensionPerformed By: #### [id number], CMP, CBC, LIPID #### [facility] [address] [place] [address] USAMonocytes/100 WBC (Bld)10.4 %Normal.Holzer Health SystemComment on above:Order Comment: Reason for Exam Essential hypertensionPerformed By: #### [id number], CMP, CBC, LIPID #### [facility] [address] [place] [address] USANeutrophils (Bld) [#/Vol]5.0 10*3/uLNormal1.8-7.7FUC [facility] HospitalComment on above:Order Comment: Reason for Exam Essential hypertensionPerformed By: #### [id number], CMP, CBC, LIPID #### [facility] [address] [place] [address] USANeutrophils/100 WBC (Bld)57.2 %Normal.Holzer Health SystemComment on above:Order Comment: Reason for Exam Essential hypertensionPerformed By: #### [id number], CMP, CBC, LIPID #### [facility] [address] [place] [address] USANucleated RBC/100 WBC (Bld) [Ratio]0.1 %Normal0-0.5 Holzer [facility] SystemCommckenzie memorial hospital on above:Order Comment: Reason for Exam Essential hypertensionPerformed By: #### [id number], CMP, CBC, LIPID #### [facility] [address] [place] [address] USAPlatelet mean volume (Bld) [Entitic vol]11.0 fLHigh 6.6-10.1FUC [facility] HospitalComment on above:Order Comment: Reason for Exam Essential hypertensionPerformed By: #### [id number], CMP, CBC, LIPID #### [facility] [address] [place] [address] USAPlatelets (Bld) [#/Vol]159 10*3/lQHtsgnt518-040ZdcdfnzpkHolzer Health SystemComment on above:Order Comment: Reason for Exam Essential hypertensionPerformed By: #### [id number], CMP, CBC, LIPID #### [facility] [address] [place] [address] USARBC (Bld) [#/Vol]5.29 10*6/uLNormal3.90-5.60Holzer Health SystemComment on above:Order Comment: Reason for Exam Essential hypertensionPerformed By: #### [id number], CMP, CBC, LIPID #### [facility] [address] [place] [address] USAWBC (Bld) [#/Vol]8.8 10*3/uLNormal4.5-11.0Holzer Health SystemComment on above:Order Comment: Reason for Exam Essential hypertensionPerformed By: #### [id number], CMP, CBC, LIPID #### [facility] [address] [place] [address] USAComprehensive Metabolic Panelon 21-37-1018Deeezol [Mass/Vol]3.9 g/dLNormal3.2-5.5FUC [facility] HospitalComment on above:Order Comment: PT FASTED 11 HRS Reason for Exam Essential hypertension Reason for Exam Essential hypertension;Vitamin D deficiencyPerformed By: #### [id number], CMP, CBC, LIPID #### [facility] [address] [place] [address] USAAlbumin/Globulin [Mass ratio]1.6 {ratio}NormalHolzer Health SystemComment on above:Order Comment: PT FASTED 11 HRS Reason for Exam Essential hypertension Reason for Exam Essential hypertension;Vitamin D deficiencyPerformed By: #### [id number], CMP, CBC, LIPID #### [facility] [address] [place] [address] USAALP [Catalytic activity/Vol]75 U/FVzcsxu69-25VvsxjafrzHolzer Health SystemComment on above:Order Comment: PT FASTED 11 HRS Reason for Exam Essential hypertension Reason for Exam Essential hypertension;Vitamin D deficiencyPerformed By: #### [id number], CMP, CBC, LIPID #### [facility] [address] [place] [address] USAALT [Catalytic activity/Vol]40 U/FAfavpm78-99SdufehcgeHolzer Health SystemComment on above:Order Comment: PT FASTED 11 HRS Reason for Exam Essential hypertension Reason for Exam Essential hypertension;Vitamin D deficiencyPerformed By: #### [id number], CMP, CBC, LIPID #### [facility] [address] [place] [address] USAAST [Catalytic activity/Vol]23 U/UIjpqws87-55EljudhkonHolzer Health SystemComment on above:Order Comment: PT FASTED 11 HRS Reason for Exam Essential hypertension Reason for Exam Essential hypertension;Vitamin D deficiencyPerformed By: #### [id number], CMP, CBC, LIPID #### [facility] [address] [place] [address] USABilirubin [Mass/Vol]0.5 mg/dLNormal0.3-1.2FUC [facility] HospitalComment on above:Order Comment: PT FASTED 11 HRS Reason for Exam Essential hypertension Reason for Exam Essential hypertension;Vitamin D deficiencyPerformed By: #### [id number], CMP, CBC, LIPID #### [facility] [address] [place] [address] USACalcium [Mass/Vol]9.3 mg/dLNormal8.2-10.2FUC [facility] HospitalComment on above:Order Comment: PT FASTED 11 HRS Reason for Exam Essential hypertension Reason for Exam Essential hypertension;Vitamin D deficiencyPerformed By: #### [id number], CMP, CBC, LIPID #### [facility] [address] [place] [address] USAChloride [Moles/Vol]102 mmol/KLkbohz95-842NeyujsdasHolzer Health SystemComment on above:Order Comment: PT FASTED 11 HRS Reason for Exam Essential hypertension Reason for Exam Essential hypertension;Vitamin D deficiencyPerformed By: #### [id number], CMP, CBC, LIPID #### [facility] [address] [place] [id number] USACO2 [Moles/Vol]27.8 mmol/HYujxcn73.0-30.0Holzer Health SystemComment on above:Order Comment: PT FASTED 11 HRS Reason for Exam Essential hypertension Reason for Exam Essential hypertension;Vitamin D deficiencyPerformed By: #### [id number], CMP, CBC, LIPID #### [facility] [address] [place] [address] USACreatinine [Mass/Vol]1.17 mg/dLNormal0.64-1.27Holzer Health SystemComment on above:Order Comment: PT FASTED 11 HRS Reason for Exam Essential hypertension Reason for Exam Essential hypertension;Vitamin D deficiencyPerformed By: #### [id number], CMP, CBC, LIPID #### [facility] [address] [place] [address] USAEstimated GFR ( Henny> 60NoSCCI Hospital LimaComment on above:Order Comment: PT FASTED 11 HRS Reason for Exam Essential hypertension Reason for Exam Essential hypertension;Vitamin D deficiencyResult Comment: GFR estimated reference range: According to KDOQI guidelines, <60 ml/min/1.73m2 is sufficient to diagnose a patient with chronic kidney disease.Performed By: #### [id number], CMP, CBC, LIPID #### [facility] [address] [place] [address] USAEstimated GFR (Non- Am> 60NoSCCI Hospital LimaComment on above:Order Comment: PT FASTED 11 HRS Reason for Exam Essential hypertension Reason for Exam Essential hypertension;Vitamin D deficiencyPerformed By: #### [id number], CMP, CBC, LIPID #### [facility] [address] [place] [address] USAGlobulin (S) [Mass/Vol]2.5 g/dLNoSCCI Hospital LimaComment on above:Order Comment: PT FASTED 11 HRS Reason for Exam Essential hypertension Reason for Exam Essential hypertension;Vitamin D deficiencyPerformed By: #### [id number], CMP, CBC, LIPID #### [facility] [address] [place] [address] USAGlucose [Mass/Vol]114 mg/pRGzpr75-260UmdehxivlHolzer Health SystemComment on above:Order Comment: PT FASTED 11 HRS Reason for Exam Essential hypertension Reason for Exam Essential hypertension;Vitamin D deficiencyResult Comment: Random Glucose Reference Range is dependent on time and content of last meal. Glucose of more than 200 mg/dL in a nonstressed, ambulatory subject supports the diagnosis of Diabetes Mellitus. ADA recommended reference rangePerformed By: #### [id number], CMP, CBC, LIPID #### [facility] [address] [place] [address] USAPotassium [Moles/Vol]3.8 mmol/LNormal3.5-5.1FUC [facility] HospitalComment on above:Order Comment: PT FASTED 11 HRS Reason for Exam Essential hypertension Reason for Exam Essential hypertension;Vitamin D deficiencyPerformed By: #### [id number], CMP, CBC, LIPID #### [facility] [address] [place] [address] USAProtein [Mass/Vol]6.4 g/dLNormal6.1-7.9Holzer Health SystemComment on above:Order Comment: PT FASTED 11 HRS Reason for Exam Essential hypertension Reason for Exam Essential hypertension;Vitamin D deficiencyPerformed By: #### [id number], CMP, CBC, LIPID #### [facility] [address] [place] [address] USASodium [Moles/Vol]137 mmol/FPgzcfn325-944ToodqevgqHolzer Health SystemComment on above:Order Comment: PT FASTED 11 HRS Reason for Exam Essential hypertension Reason for Exam Essential hypertension;Vitamin D deficiencyPerformed By: #### [id number], CMP, CBC, LIPID #### [facility] [address] [place] [address] USAUrea nitrogen [Mass/Vol]15 mg/dLNormal9-23Holzer Health SystemComment on above:Order Comment: PT FASTED 11 HRS Reason for Exam Essential hypertension Reason for Exam Essential hypertension;Vitamin D deficiencyPerformed By: #### [id number], CMP, CBC, LIPID #### [facility] [address] [place] [address] USALipid Panelon 98-51-8586Xhjjiuqecrb [Mass/Vol]205 mg/dL Vbpg050-514XnnxuzyofHolzer Health SystemComment on above:Order Comment: PT FASTED 11 HRS Reason for Exam Essential hypertension Reason for Exam Essential hypertension;Vitamin D deficiencyResult Comment: Chol less than 200 mg/dl low risk Chol 201-239 mg/dl borderline risk Chol 240 mg/dl and greater high riskPerformed By: #### [id number], CMP, CBC, LIPID #### [facility] [address] [place] [address] USACholesterol in HDL [Mass/Vol]24 mg/dPBwq15-94SzhsgkrhmHolzer Health SystemComment on above:Order Comment: PT FASTED 11 HRS Reason for Exam Essential hypertension Reason for Exam Essential hypertension;Vitamin D deficiencyResult Comment: HDL CHOL ATP-III CLASSIFICATION Cardiovascular Risk HDL > or equal to 60 mg/dL LOW HDL < 40 mg/dL HIGHPerformed By: #### [id number], CMP, CBC, LIPID #### [facility] [address] [place] [address] USACholesterol.total/Cholesterol in HDL [Mass ratio]8.5 {ratio}Normal<5.0Holzer Health SystemComment on above:Order Comment: PT FASTED 11 HRS Reason for Exam Essential hypertension Reason for Exam Essential hypertension;Vitamin D deficiencyPerformed By: #### [id number], CMP, CBC, LIPID #### [facility] [address] [place] [address] USALDL Cholesterol,Asffpfvzrt046 mg/dLHigh0-100Holzer Health SystemComment on above:Order Comment: PT FASTED 11 HRS Reason for Exam Essential hypertension Reason for Exam Essential hypertension;Vitamin D deficiencyResult Comment: LDL ATP III CLASSIFICATION LDL less than 100 mg/dL Optimal LDL 100-129 mg/dL Near or above optimal LDL 130-159 mg/dL Borderline high LDL 160-189 mg/dL High LDL greater than 189 mg/dL Very highPerformed By: #### [id number], CMP, CBC, LIPID #### [facility] [address] [place] [address] USATriglyceride w/Ablock883 mg/nDJtar32-741IuuthqwkkHolzer Health SystemComment on above:Order Comment: PT FASTED 11 HRS Reason for Exam Essential hypertension Reason for Exam Essential hypertension;Vitamin D deficiencyResult Comment: TRIG ATP III CLASSIFICATION TRIG less than 150 mg/dL Normal TRIG 150-199 mg/dL Borderline high TRIG 200-500 mg/dL High TRIG greater than 500 mg/dL Very high Standard traceable to the Center for Disease Conrtrol and Prevention (CDC) test method.Performed By: #### [id number], CMP, CBC, LIPID #### [facility] [address] [place] [address] USAVLDL MEJXQPBDYSY07 mg/dLNormCherrington HospitalComment on above:Order Comment: PT FASTED 11 HRS Reason for Exam Essential hypertension Reason for Exam Essential hypertension;Vitamin D deficiencyPerformed By: #### [id number], CMP, CBC, LIPID #### [facility] [address] [place] [address] USAVitamin D 25 Hydroxy Totalon 26-14-5257Xpkidew D 25 Hydroxy Total50.8 ng/tCNsbskv78-571CumicuuxvHolzer Health SystemComment on above:Order Comment: PT FASTED 11 HRS Reason for Exam Essential hypertension Reason for Exam Essential hypertension;Vitamin D deficiencyResult Comment: VITAMIN D STATUS 25(OH)VITAMIN D RANGE (ng/mL) Deficient <20 Insufficient 20 to <30 Sufficient 30 to 100 Reference: Aranza MF,Kindra NC, Checo NELSON, et al. Evaluation,treatment, and prevention of vitamin D deficiency; an Endocrine Society clinical practice guideline. JCEM. 2010; 96(7):1911-30. PERFORMED BY: [address] [address] PATHOLOGIST ROD STRAIGHTENER PATTI DE M.D.Performed By: #### [id number], CMP, CBC, LIPID #### [facility] [address] [place] [address] [facility] Encounters Encounter DateEncounter TypeCare ProviderFacilityStart: 64-71-4375svcuebkbnmMercy Health Clermont Hospitaltart: 12-27-2024 End: 02-32-8232ghtfcivoskDOZMXUniversity Hospitals St. John Medical Centertart: 93-00-2496sdsqbfenvhWRSYYZD CLEMONSUniCleveland Clinic Mercy Hospitaltart: 63-06-0234tronmcglqiWMDWZC [facility] Hospitaltart: 11-20-2024 End: 34-77-4694siubrdtjgbMXYQJR [facility] Hospitaltart: 50-63-3512uyjvhpfoyxDZEFYID [facility]: 59-60-7384Jjrwaqbvl for other preprocedural examinationKENGARCIA [facility] Hospitaltart: 10-11-2024 End: 20-72-1453nsgzzhgcpzSNKXZ [facility] Hospitaltart: 10-04-2024 End: 43-56-5718rhenbsxdslFHDJVHN DERFulton County Health Centertart: 06-36-9353Sxihnyqlex and management of inpatientKENDAVIOLET Thomson LITITZCAMERONCleveland Clinic Marymount Hospitaltart: 16-00-4210Oirrgwgnxj and management of inpatient DANA JENNIFFERSt. Francis Hospitaltart: 08-24-0784Wmsupuzyzy and management of inpatientNIDA [facility] Start: 10-02-2024 End: 46-82-8376Ieuecxocip and management of inpatientDOUGLAS [facility] Payers DatePayer CategoryPayerPolicy [id number] Clinical Notes 10-02-2024 to 01-03-2025 Note Date & RzwbPppuGnchzaag61-01-6080 NoteCARDIOLOGY PHARMACIST VISIT - HEART FAILURE TELEPHONE (AUDIO ONLY) CONSULT Referring Provider: Dr. Keene/Dr. Waldron Clinic Location: [facility] Most recent cardiology visit: 12/27/24 Insurance: Commercial [...] of 55%. He saw Dr. Waldron at [place] location about a week ago. Patient reports [...] (furosemide 20mg bid) [] Hydralazine/Isosorbide (persistently symptomatic -[place] patients despite GDMT, NYHA class III-IV) Adherence: [...] consult agreement between physician and PharmD: Yes Stella Spence, MynorD, BCACP [facility] Cardiology 01/03/25 [1] Patient Active Problem List Diagnosis NSTEMI (non-ST elevated myocardial infarction) ([facility]) Primary hypertension HFrEF (heart failure with reduced ejection fraction) ([facility]) Obesity Tobacco use disorder Multi-vessel coronary artery stenosis Hyperlipidemia Coronary artery disease S/P coronary artery stent placementUnTriHealth Bethesda Butler Hospital07-18-[address] Waldron. She would is ok with patient to continue off spironolactone. Spoke with patient and provided update. Patient verbalized understanding. Next appointment with Dr. Waldron is in March. Celine Levy, MynorD [facility] Cardiology 01/16/25UnTriHealth [facility]07-18-2025 NoteSpoke with PCP office - patient had labs completed on 12/25 which showed Scr 1.7 and eGFR 43 (they are faxing labs to us). From there the PCP made spironolactone PRN for swelling?? This Scr is slightly elevated from previous (~1.3) My suggestion would be for patient to have BMP recompleted and restart spironolactone as long as Scr looks ok. Let me know your thoughts. Thanks![facility]07-11-2025 NoteBellevue [facility] Note Reason for cardiology [...] every day and when he goes to [place] with his family he walks about 4 hours without any problem. He quit smoking totally on 09/22/2024. No alcohol or illicit drugs 10/11/2024 Magaly Yung is a 49 y.o. male who presented 09/30/2024 to [facility] with chest pain of 3 days duration associated with worsening shortness of breath, he was severely hypertensive on arrival and BNP was elevated. His echo showed ejection fraction of 15 to 20%. He was sent to [facility] for cardiac catheterization performed 10/02/2024 [...] symmetric in bilateral up (more content not included)...[facility]06-16-2025 NoteCARDIOLOGY PHARMACIST VISIT - HEART FAILURE TELEPHONE (AUDIO ONLY) CONSULT Referring Provider: Dr. Keene/ Dr. Waldron Clinic Location: [facility] Most recent cardiology visit: 10/11/24 Insurance: Commercial [...] congestion) (furosemide 40mg) [] Hydralazine/Isosorbide (persistently symptomatic -[place] patients despite GDMT, NYHA class III-IV) Adherence: [...] consult agreement between physician and PharmD: Yes Stella Spence, MynorD, [facility] Cardiology 12/10/24 [1] Patient Active Problem List Diagnosis NSTEMI (non-ST elevated myocardial infarction) ([facility]) Primary hypertension HFrEF (heart failure with reduced ejection fraction) ([facility]) Obesity Tobacco use disorder Multi-vessel coronary artery stenosis Hyperlipidemia Coronary artery disease involving [place] coronary artery of [place] heart with unstable angina pectoris ([facility]) S/P coronary artery stent placementUnTriHealth Bethesda Butler Hospital06-04-2025 NoteSpoke with patient and scheduled for visit on 12/02 at 2pm. Patient does live in [place] and is seen at the [facility], so will need to do telemedicine with him. Mynor JonesD, [facility] Cardiology 11/25/24Un[facility]06-04-2025 NotePHARMD CARDIOLOGY CONSULT - NEW CONSULT 11/20/24 Referring Provider: Dr. Keene Clinic: [facility] Cardiology-- saw outpatient cardiology at Cardiology Magaly Yung is referred to clinic pharmacists for GLP initiation and lipid management (hx of CAD, HTN, HLD, HFrEF, obesity, LDL goal < 55). Electronic order received from patient's cardiology provider. Will call patient to schedule. Celine Levy, MynorD [facility] CardiologyJ.W. [facility]06-04-2025 NoteCardiology I placed referral order to [place] cardiology pharmacist to help with lipid management [...] labs and assess in outpatient follow up Enriqueta Keene MD cargo services coordinator [facility] [place] [facility] Pager: [phone] Diagnosis Plan 1. HFrEF (heart failure with reduced ejection fraction) ([facility]) Ambulatory referral to Cardiology Pharmacist 2. Multi-vessel coronary artery stenosis Ambulatory referral to Cardiology Pharmacist 3. Coronary artery disease involving [place] coronary artery of [place] heart with unstable angina pectoris ([facility]) Ambulatory referral to Cardiology Pharmacist 4. Primary hypertension Ambulatory referral to Cardiology Pharmacist 5. Tobacco use disorder Ambulatory referral to Cardiology Pharmacist 6. Class 2 severe obesity due to excess calories with serious comorbidity and body mass index (BMI) of 39.0 to 39.9 in adult ([facility]) Ambulatory referral to Cardiology Pharmacist 7. Mixed hyperlipidemia Ambulatory referral to Cardiology Pharmacist 8. S/P coronary artery stent placement Ambulatory referral to Cardiology PharmacistJ.W. [facility]06-04-2025 NotePatient: Magaly Yung Procedure Information Date/Time: 11/20/24 1030 Procedures: Coronary angiography - PC Approved 10/30-11/28 Percutaneous coronary intervention Location: [facility] AVIATION ELECTRICAL TECHNICIAN 3 / [facility] (Cath) Providers: Enriqueta Keene MD Clinical information reviewed: Allergies Meds Physical Exam Airway Mallampati: III TM distance: <3 FB Cardiovascular Rhythm: regular Rate: normal Dental Pulmonary Abdominal Anesthesia Plan ASA 3 other (Conscious ) Anesthetic plan and risks discussed with patient. Use of blood products discussed with patient who consented to blood products. Plan discussed with attending. Additional Equipment RequestsUnTriHealth Bethesda Butler Hospital05-12-2025 Note Cardiology I had heart team discussion [...] Diagnosis Plan 1. Primary hypertension Case Request Canvas Repairer: Coronary angiography, Percutaneous coronary intervention 2. Multi-vessel coronary artery stenosis Case Request Canvas Repairer: Coronary angiography, Percutaneous coronary intervention 3. HFrEF (heart failure with reduced ejection fraction) ([facility]) Case Request Canvas Repairer: Coronary angiography, Percutaneous coronary intervention 4. Coronary artery disease of [place] artery of [place] heart with stable angina pectoris 5. Tobacco use disorder Case Request Canvas Repairer: Coronary angiography, Percutaneous coronary intervention 6. Mixed hyperlipidemia Case Request Canvas Repairer: Coronary angiography, Percutaneous coronary intervention 7. Class 2 severe obesity due to excess calories with serious comorbidity and body mass index (BMI) of 39.0 to 39.9 in adult ([facility]) Case Request Canvas Repairer: Coronary angiography, Percutaneous coronary intervention 8. Coronary artery disease involving [place] coronary artery of [place] heart with unstable angina pectoris ([facility]) Case Request Canvas Repairer: Coronary angiography, Percutaneous coronary intervention Lab on [...] Bilirubin, Urine 10/17/2024 Negative Negative Final [place], Urine 10/17/2024 1.015 1.010 - 1.030 Final [...] eGFR 10/17/2024 65.8 >60.0 mL/min/1.73m*2 Final The [facility]???s estimated glomerular filtration rate (eGFR) [...] THERAPEUTIC RANGE. CHEST 1995;108:231S-246 (more content not included)...[facility]04-25-2025 NoteCarl[facility] Note Reason for cardiology visit: Follow-up on coronary artery disease, ischemic cardiomyopathy and chronic heart failure, hypertension, and hyperlipidemia HPI: Magaly Yung is a 49 y.o. male who presented 09/30/2024 to [facility] with chest pain of 3 days duration associated with worsening shortness of breath, he was severely hypertensive on arrival and BNP was elevated. His echo showed ejection fraction of 15 to 20%. He was sent to [facility] for cardiac catheterization performed 10/02/2024 [...] no acute distress. HEAD: atraumatic, normocephalic. EYES: ALILA, EOMI. NECK: trachea midline, no JVD present, [...] CHOL 211 (H) 10/03/19 (more content not included)...[facility]04-18-2025 NoteHospital Medicine Discharge Summary Final Discharge Diagnosis: Severe multivessel coronary artery disease Acute decompensated systolic heart failure with reduced ejection fraction, NYHA class II Tobacco use disorder Essential hypertension Mixed hyperlipidemia Class II obesity Admission Diagnosis: NSTEMI (non-ST elevated myocardial infarction) ([facility]) [I21.4] Hospital course: Magaly Yung is an 49 y.o. ld white male admitted from [facility] as a direct transfer where he presented with intermittent chest pains described as anterior chest dull to pressure-like associated with dyspnea radiating to left pain started a week back pain unrelated to activity but 4 days back got worse so he decided to go to the ER where he was admitted to [facility]. Patient denies any history of hypertension [...] to tobacco use his BNP done at [facility] was 448 BUN was 15.9 creatinine [...] Admission: Cardiology and CT Surgery Dear MD Betty, Magaly is advised to follow up with you [...] Medications These medications were sent to [facility] - [place], [place] - [address], [facility] [address] aspirin 81 mg chewable tablet atorvastatin 40 [...] Results from last 7 days Lab Units 10/03/248 10/02/241952 (more content not included)...[facility]04-18-2025 NoteStop bang score of 3, Sleep referral ordered for OPUnTriHealth [facility]04-18-2025 Note Cardiothoracic Surgery Progress Note 10/04/2024 Room: [address] [place] [address] Subjective Magaly Yung is a 49 y.o. male with PMH of smoker, obesity, strong family history of CAD who presented to [facility] as a direct transfer where he was experiencing intermittent chest pain, described as anterior chest dull to pressure-like associated with dyspnea radiating to left. [facility] labs remarkable for BNP 448, [...] is somewhat limited. He was transferred to [facility] for cardiac catherization. Underwent cardiac cath yesterday with Dr. Enriqueta Keene and was found to have severe [...] is seen f (more content not included)... [facility]04-18-2025 NoteUTP CARDIOLOGY INPATIENT PROGRESS NOTE Reason for follow up: Angina, [...] no medications at all. 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 10/02/2024 he was transferred from [facility] for non-STEMI with angina and acute heart failure with preserved EF. Complaining of intermittent dull to pressure-like anterior chest discomfort associated with dyspnea radiating to left arm. Over the past 2 months patient had noticed gradually worsening BERNAL and the dull midsternal prssure to left arm then gradually worsening LE edema. At [facility] labs remarkable for BNP 448, BUN 15.9, Creatinine 1.13, High Sensitivity Troponin 25.9, later normalized. Echocardiogram found EF 15-20% with grade 3 LVDD, moderate concentric LVH and global hypokinesis. EKG with sinus rhythm and nonspecific ST-T wave changes. At [facility], repeat echocardi[facility] found severe multivessel CAD and CT [...] LDL 190 10/02/2024 No results found for: NHPCFTAJ47 , IRON , TIBC , C3 , C4 , TALA , CANCA , ASO , PSA , CEA , CA125 , CA1 (more content not included)...[facility]04-17-2025 NoteContinue lisinopril.[facility]04-17-2025 NoteS/p cardiac cath 10/02Un[facility]04-17-2025 NotePatient has a smoking history of more than 20 pack years a day.[facility]04-17-2025 NoteNYHA class II Continue continue IV Lasix Continue lisinopril, Coreg, Aldactone, FarxigaUnTriHealth [facility] Hospital04-17-2025 NoteClass II obesityUnTriHealth Bethesda [facility] Hospital 10-03-2024 NoteCardiac catheterization 10/02 showed multivessel disease, LVEDP 30 CT surgery consulted for CABG evaluationUnTriHealth Bet[facility]da [facility] 10-03-2024 [facility] - 10/03/2024 1:24 PM; Room: [address] [place] [address] Admission: 10/02/2024 1:50 AM; Length of stay: 1 days THE HOSPITALIST TEAM PREFERS TO USE Ge[employer] FOR NON-URGENT COMMUNICATION 7AM-7PM. IF I DO NOT RESPOND WITHIN 20 MINUTES OR URGENT MATTERS, PLEASE CALL THROUGH THE PELT SALTER. FROM 7PM-7AM, PLEASE PAGE [phone](COVR). Code Status: Full Code Barriers to Discharge: [...] Assessment & Plan Coronary artery disease of [place] artery of [place] heart with stable angina pectoris Cardiac catheterization 10/02 showed multivessel disease, LVEDP 30 CT surgery consulted for CABG evaluation NSTEMI (non-ST elevated myocardial infarction) ([facility]) S/p cardiac cath 10/02 Primary hypertension Continue lisinopril. HFrEF (heart failure with reduced ejection fraction) ([facility]) NYHA class II Continue continue IV [...] LDL 190 10/02/2024 No results found for: QYGWJKQS80 , IRON , TIBC , C3 , C4 , TALA , CANCA , ASO , PSA , CEA , CA125 , CA199 , AFP , CA153 Imaging Pulmonary function testing Consuelo FernandesHAO 10/03/2024 12:49 PM Bedside Spirometry uploaded into Yield[employer]. Vascular US lower extremity vein mapping bilateral [...] arteries were evaluated bilaterall (more content not included)...[facility]04-17-2025 NoteBedside Spirometry uploaded into [employer].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 Cardiology Progress Note HPI: Magaly Yung is a 49 y.o. male with insignificant medical history, other than tobacco use disorder for 20 years, presenting from [facility] with chest pain Patient reports that he has been endorsing continued chest pain of 1 week duration, it become worse yesterday so he went to [facility]. Associated with diaphoresis, feels like a pressure, 5 out of 10, no radiation. Patient has a brother that with heart attack at the age of 42, mother at age of 47, at [facility] patient echo showed heart failure with [...] Daily, Rao Garcia MD, 81 mg at 10/02/24 09 atorvastatin (Lipitor) tablet 40 mg, 40 mg, oral, Nightly, Rao Garcia MD, 40 mg at 10/02/242106 carvedilol (Coreg) tablet 25 mg, 25 mg, oral, BID, Rao Garcia MD, 25 mg at 10/02/242106 dapagliflozin propanediol (Farxiga) tablet 10 mg, 10 mg, oral, Daily, Rao Garcia MD, 10 mg at 10/02/24 0941 furosemide (Lasix) injection 40 mg, 40 mg, [...] focal deficit present. Mental (more content not included)...[facility] 10-02-2024 NotePatient admitted to the hospital for: NSTEMI. Chart echo noted in the admit progress notes, from 09/30/[address] [facility] reports: EF 15-20 %. Current echo report qualifies for Cardiac Rehab services per CMS eligibility criteria. A Cardiac Rehab referral diagnosis and code must also meet CMS criteria. Desiree Tyler RN, BSN Cardiology Outpatient Coordinator Cardiopulmonary RehabUnTriHealth Bethes[facility]04-16-2025 NotePatient: Magaly Yung Procedure Information Date/Time: 10/02/24 1530 Procedures: Coronary angiography Right heart cath Location: [facility] AVIATION ELECTRICAL TECHNICIAN 2 BIPLANE / [facility] (Cath) Providers: Enriqueta Keene MD Clinical information reviewed: Tobacco Allergies [...] who consented to blood products. Additional Equipment RequestsUnTriHealth Bethesda Butler Hospital04-16-2025 Note 10/02/24 1201 Admission Assessment Questions Verify [...] Status Interested Does the patient have a case repairer assigned to them through their insurance? No [...] activate MyChart? No Write sent email to [facility] registration about missing insurance in [facility]04-16-2025 NoteAs above also would recommend outpatient sleep studyUnTriHealth [facility]04-16-2025 NoteWe will check triglycerides/lipid profile if triglycerides below 300 consider GLP-1 inhibitor discussed with patient about diet management dietary consult already in order for CHF and for obesityUnTriHealth Bethesda [facility] 10-02-2024 NoteOptimize guideline directed medical therapy including Coreg lisinopril Aldactone and Farxiga consider changing DAVEY inhibitor to ARNI monitor I's and O's salt restricted diet core CHF measures in placeUnTriHealth Bethesda Butler Hospital 10-02-2024 NoteCycle troponin nitrates Coreg statin aspirin with his [...] reduced EF and NSTEMI anticipate left heart cathUnTriHealth Bethesda Butler Hospital04-16-2025 NoteHospital Medicine History and Physical 10/02/2024 2:45 AM THE HOSPITALIST TEAM PREFERS TO USE B[employer] CHAT FOR NON-URGENT COMMUNICATION 7AM-7PM. IF I DO NOT RESPOND WITHIN 20 MINUTES OR URGENT MATTERS, PLEASE CALL THROUGH THE PELT SALTER. FROM 7PM-7AM, PLEASE PAGE [phone](COVR). Chief Complaint No chief complaint on file. History of Present Illness Magaly Yung is an 49 y.o. ld white male admitted from [facility] as a direct transfer where he presented with intermittent chest pains described as anterior chest dull to pressure-like associated with dyspnea radiating to left pain started a week back pain unrelated to activity but 4 days back got worse so he decided to go to the ER where he was admitted to [facility]. Patient denies any history of hypertension [...] to tobacco use his BNP done at [facility] was 448 BUN was 15.9 creatinine [...] & Plan NSTEMI (non-ST elevated myocardial infarction) ([facility]) Cycle troponin nitrates Coreg statin aspirin with [...] HFrEF (heart failure with reduced ejection fraction) ([facility]) Optimize guideline directed medical therapy including [...] acute care setting f (more content not included)...[facility] Summary Purpose Family History No Family History Records FoundNo Family History Records Found Advance Directives No Advanced Directives Records FoundNo Advanced Directives Records Found Additional Source Comments (unrecognized sect ion and content) No Status Records FoundNo Status Records Found INFORMATION SOURCE (unrecogn ized section and content) DATE CREATED AUTHOR 07/19/2021 [facility] DATE CREATED AUTHOR AUTHOR'S SABASIZ ATION 04/24/2025 [facility] FOR RECORDS PERTAINING TO PATIENTS WHO [...] BE BASED ON THE PRIMARY CLINICAL RECORDS. [facility] [employer] [facility]. provides no warranty or guarantee of the accuracy or completeness of information in this document.
[2025-04-25 12:50] LABS: Anion Gap 13.8; Blood Urea Nitrogen 15.0 mg/dL (7.0-18.0); Calcium 9.2 mg/dL (8.5-10.1); Carbon Dioxide 27.1 mmol/L (21.0-32.0); Chloride 106 mmol/L (98-107); Estimated GFR (African America >60 (>=60 mL/min/1.73m^2); Estimated GFR (Non-African Ame >60 (>=60 mL/min/1.73m^2); Glucose 99 mg/dL (74-106); Potassium 3.9 mmol/L (3.5-5.1); Sodium 143 mmol/L (136-145)
== END 2025-04-25 10:28 | disposition home or self-care (01) ==
LOC: LAB 10:28
PROVIDERS: PCP Family Medicine; Visit Provider Internal Medicine Cardiovascular Disease
DX: I50.32 Chronic diastolic (congestive) heart failure (principal)
CPT/HCPCS: 36415; 80048

== ENCOUNTER 2025-06-16 15:31 | Outpatient (OUT) | payer BC, SELFPAY ==
--- OUTSIDE RECORDS SUMMARY | 2024-06-27 08:45 | XMS_ITS ---
Author Organization [facility] es Address [address] [place] [address] Care Team Providers Care Jeeper Operator Name Role Phone Nahid Lantiuga Primary Care Provider REASON FOR VISIT EST CARE, HOSP F/U; BP Encounters Encounter Location Date Provider Diagnosis [facility] [address] [place] [address] 06/27/2024 Nahid Lantigua Plan Of Treatment No Information Progress Notes * VIVIANA MAGDALENOOB:1975 ( 49 yo M)Acc No.[id number]:06/27/2024 Progress Notes Patient: Rocío REYNA MAGALY :?SHARONDA TaylorOB:1975???Age:48 Y???Sex: MaleDate:06/27/2024Phone:[phone]:[address], [place]-[id number] Subjective: * Chief Complaints: * E ST CARE, HOSP F/U; BP * Electronic signature of Nahid Lantigua DO, [id number] on 06/16/2025 at 03:35 PM ESTSign off status: Pending * Provider: Jess Lantigua DO Date: 0 06/27/2024 Generated for Printing/Faxing/eTransmitting on:?06/16/2025 03:35 PM EST
--- OUTSIDE RECORDS SUMMARY | 2024-10-03 06:30 | XMS_ITS ---
Author Organization The [facility] in [place] Address [address] [place] [address] Care Team Providers Care Sociology Instructor Name Role Phone Guero Hernández Primary Care Provider REASON FOR VISIT TCM d/c TBH 09/30 SOB CHect pain Encounters Encounter Location Date Provider Diagnosis [address] [address] 10/03/2024 Guero Hernández Plan Of Treatment No Information Progress Notes * Benny CARSONOB:1975 ( 49 yo M)Acc No.[id number]:10/03/2024 UNLOCKED PROGRESS NOTE New Patient Patient: Rodrigo BEAR :?Claude Hernández (GWENDOLYN), MDDOB:1975???Age: 49 Y???Sex:MaleDate:10/03/2024Phone:[phone]:[address], [place] Subjective: * Chief Complaints: * 1 . TCM d/c TBH 414 SOB CHect pain. * Medical History: Objective: * Vitals: Assessment: Plan: * Treatment: * * Electronic signature of Guero Hernández MD, [id number] on 06/16/2025 at 03:35 PM EST Sign off status: PendingVisit Status:?CANCPHONE (Cancelled Phone) * Provider: Mono Hernández MD (TTC) Date: 0 10/03/2024 Generated for Printing/Faxing/eTransmitting on:?06/16/2025 03:35 PM EST
--- OUTSIDE RECORDS SUMMARY | 2025-01-08 08:15 | XMS_ITS ---
Author Organization [facility] in [place] Address [address] [place] [address] Care Team Providers Care Hospice Case Manager Name Role Phone Guero Hernández Primary Care Provider REASON FOR VISIT f/u DM Encounters Encounter Location Date Provider Diagnosis [id number] [place] [address] 01/08/2025 Guero Hernández Plan Of Treatment No Information Progress Notes * Benny CARSONOB:1975 ( 49 yo M)Acc No.[id number]:01/08/2025 UNLOCKED PROGRESS NOTE Progress Note Patient: Rodrigo BEAR :?Claude Hernández (GWENDOYLN), MDDOB:1975???Age: 49 Y???Sex:MaleDate:01/08/2025Phone:[phone]:[address] [place], [place] Subjective: * Chief Complaints: * 1 . f/u DM. * Medical History: Objective: * Vitals: Assessment: Plan: * Treatment: * * Electronic signature of Guero Hernández MD, [id number] on 06/16/2025 at 03:36 PM EST Sign off status: PendingVisit Status:?CANC (Cancelled) * Provider: Mono Hernández MD (TTC) Date: 0 01/08/2025 Generated for Printing/Faxing/eTransmitting on:?06/16/2025 03:36 PM EST
--- OUTSIDE RECORDS SUMMARY | 2025-06-16 15:35 | XMS_ITS | Patient Health Record ---
Author Organization [employer] Address [address] [place] [address] Care Team Providers Care Manager Real Estate Name Role Phone Nahid Lantigua Primary Care Provider Reason For Referral No Information Plan Of Treatment No Information
--- OUTSIDE RECORDS SUMMARY | 2025-06-16 15:36 | XMS_ITS | Clinical Summary ---
Author Organization [facility] Address [address] [place] [address] Care Team Providers Care Cooling Tower Technician Name Role Phone Claude Hernández MD Primary Care Provider [phone] Allergies Active AllergyReactionsCriticalityNoted DateCommentsPenicillinsAnaphylaxisHigh 10/02/2024 Medications MedicationSigDispense [...] Indications:HFrEF (heart failure with reduced ejection fraction) ([facility])Take 1 tablet (40 mg) by mouth two times daily. 180 tablet /ctive isosorbide mononitrate ER (Imdur) 30 mg 24 hr tablet Indications:HFrEF (heart failure with reduced ejection fraction) ([facility])Take 1 tablet (30 mg) by mouth in the morning for 360 doses. Do not crush or chew. 90 tablet /ctive spironolactone (Aldactone) 25 mg tablet Indications:HFrEF (heart failure with reduced ejection fraction) ([facility])Take 1 tablet (25 mg) by mouth in the morning for 360 doses. 90 tablet /ctive Additional Information Patient taking differently:25 mg oralAs needed, Reported on 04/25/2025 clopidogrel (Plavix) 75 mg tablet Indications:NSTEMI (non-ST elevated myocardial infarction) ([facility]),Coronary artery disease involving [place] coronary artery of [place] heart with unstable angina pectoris ([facility])Take 1 tablet (75 mg) by mouth in the morning. 90 tablet /ctive glimepiride (Amaryl) 2 mg tablet Take 2 mg by mouth before breakfast.5Active Norvasc 5 mg tablet Take 5 mg by mouth in the morning.5Active spironolactone (Aldactone) 25 mg tablet Indications:Benign hypertensive heart disease without congestive heart failure Take 1 tablet (25 mg) by mouth in the morning. 90 tablet ctive Active Problems ProblemNoted DateDiagnosed DateDiabetes /06/2025Pulmonary edema 04/24/2025S/P coronary artery stent zacwsrtpe56/04/2025oronary artery disease 10/28/20246589Nyqscgmssykeus46/27/2025Tobacco use eknqpiiq61/17/2025 Assessment & Plan (10/03/2024 1:48 PM EDT): Patient has a smoking history of more than 20 pack years a day. Primary amejettxhlcq00/16/2025 Assessment & Plan (10/03/2024 1:48 PM EDT): [...] restricted diet core CHF measures in place Vvykdbg2610/02/2024 Assessment & Plan (10/03/2024 1:48 PM EDT): Class II obesity Assessment & Plan (10/02/2024 2:57 AM EDT): We will check triglycerides/lipid profile if triglycerides below 300 consider GLP-1 inhibitor discussed with patient about diet management dietary consult already in order for CHF and for obesity Resolved Problems ProblemNoted DateDiagnosed DateResolved IitrXpjxtfgcthvp68 Hypertensive tuahrwo15Multi-vessel coronary artery stenosis oronary artery disease of [place] artery of [place] heart with stable angina wpjyxrff29/05/2025 Assessment & Plan (10/03/2024 1:48 PM EDT): Cardiac catheterization 10/02 showed multivessel disease, LVEDP 30 CT surgery consulted for CABG evaluation NSTEMI (non-ST elevated myocardial infarction) Assessment & Plan (10/03/2024 1:48 PM EDT): [...] EF and NSTEMI anticipate left heart cath Encounters DateTypeDepartmentCare YmopSaufbjpocks84/17/2025[facility] Cardi[facility] [address] [place] [address], [place] [address] Francheska Gerard MA 05/02/[address] [address] Nadya Horton MA 04/25/2025 9:[address] [facility] [address] [place] [address], [place] [address] Li Waldron MD Coronary artery disease involving [place] coronary artery of [place] heart without angina pectoris (Primary Dx); S/P coronary artery stent placement; HFrEF (heart failure with reduced ejection fraction) (CMS/HCC); Primary hypertension; Mixed hyperlipidemia; Type 2 diabetes mellitus without complication, without long-term current use of insulin (CMS/HCC); Class 2 severe obesity due to excess calories with serious comorbidity and body mass index (BMI) of37.0 to 37.9 in adult04/22/2025[facility] [address] [place] [phone] Nadya Horton MA from Last 3 Months Family History Medical HistoryRelationNameCommentsCoronary artery diseaseBrotherCoronary artery diseaseMotherRelationNameStatusCommentsBrotherDeceasedFatherAliveMotherDeceased Social History Tobacco UseTypesPacks/DayYears UsedDateSmoking Tobacco: FormerCigarettes Smokeless Tobacco: CurrentChew Tobacco Cessation:Ready to Q uit: Not Asked; Counseling Given: Yes Alcohol UseStandard Drinks/WeekCommentsNot Currently0 (1 standard drink = 0.6 oz pure alcohol)[facility] UtilitiesAnswerDate RecordedIn the past 12 months has the electric, gas, oil, or water [employer] threatened to shut off services in your [...] were you homeless or living in a retirement (including now)?No10/02/2024Hunger Vital SignAnswerDate RecordedWithin the past 12 months, you worried that your food would run out before you got the money to buymore.Never true10/02/2024Ran Out of Food in the Last YearNot on file 10/02/2024Sex and Gender InformationValueDate RecordedSex Assigned at BirthMale 04/25/2025 9:16 AM ESTLegal KiqCunj5412/15/2021 10:50 PM EDTGender IdentityMale 04/25/2025 9:16 AM ESTSexual OrientationHeterosexual or Isbakwha97/07/2025 9:16 AM EST Last Filed Vital Signs Vital SignReadingTime TakenCommentsBlood Ntgxuhgr962/01647 9:25 AM EST Ypjri696804/25/2025 9:25 AM MXZYgshzlyndvc60.4 ??C (97.5 ??F)10/04/2024 3:13 PM EDTRespiratory Jmxq0451 4:21 PM EDTOxygen Teiwebagzg78%04/25/2025 9:25 AM ESTInhaled Oxygen Concentration--Ihkoff726 kg (291 lb)04/25/2025 9:25 AM EST Djvese667 cm (6' 2 )04/25/2025 9:25 AM ESTBody Mass Index37.36106/25/2024 9:25 AM EST Plan of Treatment DateTypeDepartmentCare Team (Latest Contact Info)Zfgmfbykywo58/05/2026 10:[address] [facility] [address] [place] [address] Li Waldron MD [address] [place] [address] Health MaintenanceDue DateLast DoneCommentsCT Mnrsbgrnyoni48/01/1978Colonoscopy 1977Colorectal Cancer Ltgdjpcuj47/01/1978FIT-DNA1977FIT1977 FOBT1977 1238Ncajcapdbhkgi04/01/1978Diabetes: Retinopathy Wfiaowjrh34/01/1988 Depression Dkwqbqdsd78/01/1990Diabetes: Urine Protein Qemhrkjbp06/01/1997 Hepatitis B Vaccines (1 of 3 - 19+ 3-dose series)1996Pneumococcal Vaccine: Pediatrics (0 to 5 Years) and At-Risk Patients (6 to 64 Years) (1 of 2 - PCV) 1996Adult Zocmxim46Diabetes: Hemoglobin A1C01/01/2025 10/02/2024OVID-19 Vaccine ( - 2024- season)2025Influenza Vaccine (#1) 2025Zoster Vaccines (1 of [...] ImplantedTypeAreaManufacturerDevice IdentifierShelf Expiration DateModel / Serial / LotStentGab Mr 4.00 X 32 - [id number] Implanted:Qty: 1 on 11/20/2024 by Mikael [facility] El[facility] StentLeft: CoronaryBoston [id number] 11/08/[id number] / / [id number] Procedures Procedure NamePriorityDate/TimeAssociated DiagnosisCommentsHEMOGLOBIN P3RRhcvouf 10/02/2024 3:58 AM EDT from Last 3 Months or Most Recently Relevant to Health Maintenance Results * (ABNORMAL) Hemoglobin A1c (10/02/2024 3:58 AM EDT)ComponentValueRef RangeTest MethodAnalysis TimePerformed AtPathologist SignatureHemoglobin A1C6.8(H)4.0 - 6.0 %10/02/2024 9:41 AM [facility])Estimated Average Glucose 148mg/dL10/02/2024 9:41 AM [facility] ([facility])Specimen (Source) Anatomical Location / LateralityCollection Method / VolumeCollection Time Received TimeBloodVenous blood specimen / UnknownArterial Line / Unknown 10/02/2024 3:58 AM EDT10/02/2024 4:47 AM EDT Narrative Authorizing ProviderResult TypeResult StatusRao CARBAJAL BLOOD ORDERABLESFinal ResultPerforming OrganizationAddressCity/State/ZIP CodePhone Number [facility] ([facility] [address] [place] [address] from Last 3 Months or Most Recently Relevant to Health Maintenance Insurance Advance Directives * Full Code (Latest Code Status on File) Date ActivatedDate InactivatedComments10/02/2024 2:45 AM10/04/2024 7:06 PM Care Teams Team MemberRelationshipSpecialtyStart DateEnd Date Claude Hernández MD [address] [place] [address] PCP - General10/02/24
--- OUTSIDE RECORDS SUMMARY | 2025-06-16 15:36 | XMS_ITS | Patient Health Record ---
Author Organization [facility] in [place] Address [address] [place] [address] Care Team Providers Care Control Systems Technician Name Role Phone Guero Hernández Primary Care Provider Allergies Allergen (clinical drug ingredient) Drug/Non Drug Allergy documented on EMR Reaction Allergy Type Onset Date Status PenicillinanaphylaxisDrug AllergyActive Results Component Value Reference Range Notes CA echo doppler complete Reviewed date:09/30/2024 08:17:54 PM Interpretation: Performing Lab: Notes/Report: Source Facility: [place] [address] Cardiology Report Signed Patient: MAGALY CARSON MR#: [id number] : 1975 Acct:[id number] Age/Sex: 49 / M ADM Date: 09/28/24 Loc: MS 215-[address]: Claude Hernández M.D. Ordering Physician: Claude Hernández M.D. Date of Service: 09/30/24 Procedure(s): CA echo doppler complete Accession Number(s): [id number] cc: Claude Hernández M.D.; Physician,Non-Staff Rayne Patient Name: MAGALY CARSON MR#: [id number] : 1975 Exam Date: 09/30/2024 Ordering Doctor: [...] Signed By: 09/30/24 1437 DD/ 1435 TD/TT: Engineering Mathematician: CBC AUTO DIFF Reviewed date:10/01/2024 01:04:29 PM Interpretation: Performing Lab: Notes/Report: [facility] , White Blood Count 11.0 4.0-11.0 10 3/uL Red Blood Count5.664.70-6.10 10 6/zDYtmlsqliox22.114.0-18.0 g/lODxsoohugbq57.9 42.0-54.0 %Mean Corpuscular Eycgez67.680.0-94.0 fLMean Corpuscular Hemoglobin 28.425.9-34.0 pgMean Corpuscular HGB Conc33.629.9-35.2 g/dLRed Cell Distribution Width13.511.0-15.0 %Platelet Nukbg251705-954 10 3/uLMean Platelet Qbvdae76.9 9.5-13.5 fLNeutrophils Percent Auto58.543.0-75.0 %Lymphocytes Percent Auto26.9 20.5-60.0 %Monocytes Percent Auto9.01.7-12.0 %Eosinophils Percent Auto4.50.9-7.0 %Basophils Percent Auto0.80.2-2.0 %Immature Granulocytes Pct Auto0.30.0-0.5 % Neutrophils Absolute Auto6.41.4-6.5 10 3/uLLymphocytes Absolute Auto3.01.2-3.8 10 3/uLMonocytes Absolute Auto1.00.3-0.8 10 3/uLEosinophils Absolute Auto0.50.0- 0.7 10 3/uLBasophils Absolute Auto0.10.0-0.1 10 3/uLImmature Granulocytes Abs Auto0.030.00-0.03 10 3/uLPerforming Lab:see noteML - [facility] LBLAB TESTING Reviewed date:12/23/2024 08:17:57 AM Interpretation: Performing Lab: Notes/Report: [id number] [facility] ,Miscellaneous TestCOMMENT. Test Ordered: [id number] Apolipoprotein B Apolipoprotein B 92 [H ] mg/dL Reference Range: <90 Desirable < 90 Borderline High 90 - 99 High 100 - 130 Very High >130 ASCVD RISK THERAPEUTIC TARGET CATEGORY APO B (mg/dL) Very High Risk <80 (if extreme risk <70) High Risk <90 Moderate Risk <90 Performed at: [facility] Lab[address] [id number] Counselling Psychologist: Yesy Martinez MD, Phone: [phone] Performed at: [address] [id number] Counselling Psychologist: Nathan Caraballo PhD, Phone: [phone] Performing Lab[facility] LBLipoprotein (a) Reviewed date:12/23/2024 08:04:49 PM Interpretation: Performing Lab: Notes/Report: [facility] ,Lipoprotein (a)<8.4<75.0 nmol/L Results verified by repeat testing This test was developed and its performance characteristics determined by [facility]. It has not been cleared or approved by the Food and Drug Administration. Note: Values greater than or equal to 75.0 nmol/L may indicate an independent risk factor for CHD, but must be evaluated with caution when applied to non- populations due to the influence of genetic factors on Lp(a) across ethnicities. Performed at: [address] [id number] Counselling Psychologist: Nathan Caraballo PhD, Phone: [phone] Performing Lab:see cristinaSt. [facility] LBCA echo doppler complete Reviewed date:12/19/2024 08:32:28 PM Interpretation: Performing Lab: Notes/Report: Source Facility: [place] [address] Cardiology Report Signed Patient: MAGALY CARSON MR#: [id number] : 1975 Acct:[id number] Age/Sex: 49 / M ADM Date: 12/19/24 Loc: CARD Attending Dr: Essence Waldron M.D. Ordering Physician: Essence Waldron M.D. Date of Service: 12/19/24 Procedure(s): CA echo doppler complete Accession Number(s): [id number] cc: Claude Hernández M.D.; Essence Waldron M.D. Patient Name: MAGALY CARSON MR#: [id number] : 1975 Exam Date: 12/19/2024 Ordering Doctor: DR. ESSENCE WALDRON M.D. ECHOCARDIOGRAM REPORT PROCEDURE: CA ECHO DOPPLER COMPLETE INDICATIONS: Acute on chronic systolic heart failure, ND, cardiac stent COMPARISON: None. DESCRIPTION: COMPLETE ECHOCARDIOGRAM [...] Dictated By: Florecita Ashraf M.D. Signed By: 12/19/24 165 DD/ 1649 TD/TT: Engineering Mathematician:PROF MISHA Ramires ([facility]) Reviewed date:12/25/2024 12:56:58 PM Interpretation: Performing Lab: Notes/Report: [facility] ,Peyxcq516479-813 mmol/LPotassium3.93.5-5.1 mmol/NPbxgsdon65155-220 mmol/LCarbon Iziklhh77.321.0-32.0 mmol/LAnion Gap14.3Fqeojco01952-859 mg/dLBlood Urea Nvdrsoiq06.07.0-18.0 mg/dLCreatinine1.710.70-1.30 mg/dLEstimated GFR ( Jfvakaq89>=60 mL/min/1.73m 2Estimated GFR (Non- Ame43>=60 mL/min/1.73m 2 BUN Creatinine Ratio16.3Jaujmip7.88.5-10.1 mg/dLPerforming Lab:see noteML - [facility] LBLIPID PROFILE Reviewed date:03/29/2025 12:19:58 PM Interpretation: Performing Lab: Notes/Report: [facility] ,Vlzovlddyhlao36<=150 mg/wMGbtsfrbovve905<=200 mg/dLHDL Avcvhagdvjr9204-72 mg/dL > or =60 mg/dl - LOW CARDIOVASCULAR RISK <40 mg/dl - HIGH CARDIOVASCULAR RISK LDL Cholesterol Vnatacnnpi75.0 <100 mg/dl OPTIMAL 100-129 mg/dl NEAR OR ABOVE OPTIMAL 130-159 mg/dl BORDERLINE HIGH 160-189 mg/dl HIGH >190 mg/dl VERY HIGH VLDL XGAELZVXEOI07.4Chol HDL Ratio4.5 3.3 - 4.4 LOW RISK 4.4 - 7.1 AVERAGE RISK 7.1 - 11.0 MODERATE RISK >11.0 HIGH RISK Performing Lab:see note - [facility] LBSGOT Reviewed date:03/29/2025 12:19:58 PM Interpretation: Performing Lab: Notes/Report: [facility] ,Aspartate Amino Velkybhichf4964-61 U/LPerforming Lab:see note - [facility] LBSGPT Reviewed date:03/29/2025 12:19:58 PM Interpretation: Performing Lab: Notes/Report: [facility] ,Alanine Emvstdhlflydmdne7681-72 U/LPerforming Lab:see [facility] - [facility] LBPROF CHEM 8 (BAS METB) Reviewed date:04/25/2025 02:26:33 PM Interpretation: Performing Lab: Notes/Report: [facility] ,Fjyjfn939696-241 mmol/LPotassium3.93.5-5.1 mmol/JPbhavgfo71613-642 mmol/LCarbon Vrdwval65.121.0-32.0 mmol/LAnion Gap13.1Lpapbgz7895-855 mg/dLBlood Urea Umpxxomw31.07.0-18.0 mg/dLCreatinine1.120.70-1.30 mg/dLEstimated GFR ( Henny>60>=60 mL/min/1.73m 2Estimated GFR (Non- Barbara>60>=60 mL/min/1.73m 2BUN Creatinine Ratio13.0Oumovrp3.28.5-10.1 mg/dLPerforming Lab:see note - [facility] LBPROF 14(COMP METB) Reviewed date:12/19/2024 08:32:28 PM Interpretation: Performing Lab: Notes/Report: [facility] ,Ylwyaw095270-030 mmol/LPotassium3.73.5-5.1 mmol/ZLyjdskbo13932-741 mmol/LCarbon Uxbyjtz62.821.0-32.0 mmol/LAnion Gap11.9Nkqziav08256-360 mg/dLBlood Urea Vtjkbucm18.07.0-18.0 mg/dLCreatinine1.660.70-1.30 mg/dLEstimated GFR ( Wrxbwmt75>=60 mL/min/1.73m 2Estimated GFR (Non- Ame45>=60 mL/min/1.73m 2 BUN Creatinine Ratio12.9Micvrmd3.38.5-10.1 mg/dLBilirubin Total0.50.2-1.0 mg/dL Aspartate Amino Vwdqgpnlhik7959-72 U/LAlanine Orrmbgprcmsyjszn0516-23 U/L Alkaline Ilafehpmgaa04836-637 U/LTotal Protein7.46.4-8.2 g/dLAlbumin Level3.5 3.4-5.0 g/dLGlobulin3.9Albumin Globulin Ratio0.9Performing Lab:see noteML - [facility] LBLIPID PROFILE Reviewed date:12/19/2024 08:32:28 PM Interpretation: Performing Lab: Notes/Report: [facility] ,Fjejurocbunbw791<=150 mg/wROrizqcxuriu723<=200 mg/dLHDL Diymxgqaynk9312-63 mg/dL > or =60 mg/dl - LOW CARDIOVASCULAR RISK <40 mg/dl - HIGH CARDIOVASCULAR RISK LDL Cholesterol Fxdugxquma10.0 <100 mg/dl OPTIMAL 100-129 mg/dl NEAR OR ABOVE OPTIMAL 130-159 mg/dl BORDERLINE HIGH 160-189 mg/dl HIGH >190 mg/dl VERY HIGH VLDL FZBZRYEAPZP81.4Chol HDL Ratio5.3 3.3 - 4.4 LOW RISK 4.4 - 7.1 AVERAGE RISK 7.1 - 11.0 MODERATE RISK >11.0 HIGH RISK Performing Lab:see noteML - [facility] LBPROF CHEM 8 (BAS METB) Reviewed date:11/13/2024 06:07:41 PM Interpretation: Performing Lab: Notes/Report: [facility] ,Hejqnq604329-325 mmol/LPotassium4.33.5-5.1 mmol/SOftrgssy23285-779 mmol/LCarbon Qvghpds94.421.0-32.0 mmol/LAnion Gap12.1Owaqhcz64135-930 mg/dLBlood Urea Eygpiiuj95.07.0-18.0 mg/dLCreatinine1.300.70-1.30 mg/dLEstimated GFR ( Henny>60>=60 mL/min/1.73m 2Estimated GFR (Non- Ame59>=60 mL/min/1.73m 2 BUN Creatinine Ratio16.4Jkdkxur7.08.5-10.1 mg/dLPerforming Lab:see noteML - [facility] LBCBC AUTO DIFF Reviewed date:11/13/2024 06:07:41 PM Interpretation: Performing Lab: Notes/Report: [facility] ,White Blood Count12.94.0-11.0 10 3/uLRed Blood Count5.114.70-6.10 10 6/uL Vhxfparade46.914.0-18.0 g/pWCyzwvzxbpo06.542.0-54.0 %Mean Corpuscular Fledbc99.1 80.0-94.0 fLMean Corpuscular Yvpclemnli01.225.9-34.0 pgMean Corpuscular HGB Conc 34.329.9-35.2 g/dLRed Cell Distribution Width13.211.0-15.0 %Platelet Xonxt627 150-450 10 3/uLMean Platelet Bnocjj03.89.5-13.5 fLNeutrophils Percent Auto63.4 43.0-75.0 %Lymphocytes Percent Auto23.220.5-60.0 %Monocytes Percent Auto9.01.7- 12.0 %Eosinophils Percent Auto3.50.9-7.0 %Basophils Percent Auto0.50.2-2.0 % Immature Granulocytes Pct Auto0.40.0-0.5 %Neutrophils Absolute Auto8.21.4-6.5 10 3/uLLymphocytes Absolute Auto3.01.2-3.8 10 3/uLMonocytes Absolute Auto1.20.3- 0.8 10 3/uLEosinophils Absolute Auto0.50.0-0.7 10 3/uLBasophils Absolute Auto0.1 0.0-0.1 10 3/uLImmature Granulocytes Abs Auto0.050.00-0.03 10 3/uLPerforming Lab:see noteML - [facility] LBPROF CHEM 8 (BAS METB) Reviewed date:10/01/2024 01:04:29 PM Interpretation: Performing Lab: Notes/Report: [facility] ,Ttoaoi831650-266 mmol/LPotassium3.23.5-5.1 mmol/CLpidmssh72695-241 mmol/LCarbon Ajuxjvi37.621.0-32.0 mmol/LAnion Gap7.0Nkoghjk09663-222 mg/dLBlood Urea Cqvhzzte47.07.0-18.0 mg/dLCreatinine1.150.70-1.30 mg/dLEstimated GFR ( Henny>60>=60 mL/min/1.73m 2Estimated GFR (Non- Barbara>60>=60 mL/min/1.73m 2BUN Creatinine Ratio19.0Obcutoj6.38.5-10.1 mg/dLPerforming Lab:see noteML - [facility] LBBNP Reviewed date:10/01/2024 01:04:29 PM Interpretation: Performing Lab: Notes/Report: [facility] ,NT Pro B Type Natriuretic Ijjs007.0<=450.0 pg/mLPerforming Lab:see noteML - [facility] LB Reason For Referral No Information Medications [...] BY MOUTH TWICE DAILY Oral; Duration: 90 DaysActiveamLODIPine Besylate 5 MGTAKE 1 TABLET BY MOUTH DAILY; Duration: 30ActiveAspirin Low Dose 81 MGCHEW & SWALLOW 1 TABLET BY MOUTH IN THE MORNING Oral; Duration: 96 DaysActivePlavix 75 MG1 tablet Orally Once a day; Duration: 30 days5ActiveLisinopril 20 MGTAKE 2 TABLET BY MOUTH IN THE MORNING Oral; Duration: 90 daysActiveGlimepiride 2 MG1 tablet with breakfast or the first main meal of the day Orally Once a day; Duration: 30 dybwLIT55/09/2025Active Social History Tobacco Use: Social History Observation Description Date Details (start date - stop date) Former Smoker NA - NA Tobacco Control (Standard) Question Answer Notes Tobacco use: Former smoker How long has it been since you last smoked?1-3 monthsAUDIT-C (Standard) Question Answer Notes Did you have a drink containing alcohol in the p ast year? No Wqjlxs1LwawrmjgzfsxmjOipnlqrs Problems Problem Type SNOMED Code ICD Code Onset Dates Problem Status W/U Status Risk Notes Problem Ischemic cardiomyopathy (384154179) Ische benjamin cardiomyopathy (I25.5) ActiveconfirmedProblemCardiomegaly (7426821)Cardiomegaly (I51.7)Activeconfirmed ProblemHyperlipidemia (64140284)Hyperlipidemia (E78.5)ActiveconfirmedProblem Morbid obesity (165269199)Morbid obesity (E66.01)ActiveconfirmedProblem Hypertension (85226722)Hypertension (I10)ActiveconfirmedProblemCongestive heart failure (07133107)Congestive heart failure (I50.9)ActiveconfirmedProblemCoronary artery disease (75670311)CAD (coronary artery disease) (I25.10)Activeconfirmed ProblemPulmonary edema (03494998)Pulmonary edema (J81.1)ActiveconfirmedProblem Hypertensive urgency (401619559)Hypertensive urgency (I16.0)Activeconfirmed ProblemDiabetes mellitus (69907675)Diabetes mellitus (E11.9)Activeconfirmed Vital Signs Blood pressure diastolic 102 mm Hg 04/18/2025 Oagfzg37 in04/18/2025lood pressure mqwpapwx085 mm Hg04/18/20254995Lokicl351.0 lbs 04/16/2025BMI38 kg/m204/16/2025 Encounters Encounter Location Date Provider Diagnosis [address] [address] 10/09/2024 Guero Hoy Hypertension I10 ; Congestive heart failure I50.9 and CAD (coronary artery disease) I25.[address] [address] 01/13/2025 Guero Hoy Hypertension I10 ; Congestive heart failure I50.9 and Diabetes mellitus E11.[address] [address] 04/16/2025 Guero Hoy Hypertension I10 and Congestive heart failure I50.9 [facility] [address] [place] [place] [address] 04/18/2025 Guero Hernández [facility] [place] [place] [address] 09/30/2024[facility] [place] [place] [address]/[facility] [place] [place] [address]/08/2024Doug HoyAbnormal renal function N28.9[facility] [place] [place] [address]/02/2025 [facility] [place] [address]/[facility] [place] [place] [address]/[facility] [place] [place] [place] [address]/Doug HoyCongestive heart failure I50.9 Assessments Encounter Date Diagnosis (ICD Code) Assessment Notes Treatment Notes Treatment Clinical Notes Section Notes 10/07/2024 Congestive heart failure (ICD-10 - I50.9) 10/09/2024Hypertension (ICD-10 - I10)10/09/2024ongestive heart failure (ICD-10 - I50.9)01/13/2025Hypertension (ICD-10 - I10)01/13/2025ongestive heart failure (ICD-10 - I50.9)04/16/2025Hypertension (ICD-10 - I10)keep coreg - and doubet hte lisinopril and gmirvyqkf59/29/2025ongestive heart failure (ICD-10 - I50.9) 12/19/2024bnormal renal function (ICD-10 - N28.9)01/13/2025Diabetes mellitus (ICD-10 - E11.9)5CAD (coronary artery disease) (ICD-10 - I25.10) Plan Of Treatment Pending Test Test Name Order Date BMP - Basic Metabolic Panel 12/19/2024 Insurance Providers Payer Name Payer Address Payer Phone Subscriber Number Group Number Insured Name Patient Relationship to Insured Coverage Start Date Coverage End Date [employer] ACCESS PPO PLUS LOCAL PLAN [address] [place] [address] [id number] Joe Carson - patient is the insured Medical (General) History Medical History History ICD Code Hypertension I10 Congestive heart failure I50.9 Surgical History Surgery Date(Month/Year) Tonsilectomy Hospitalization History Reason Date(Month/Year) [facility] Congestive Heart F ailure and Hypertension 09/2024
--- OUTSIDE RECORDS SUMMARY | 2025-06-16 15:36 | XMS_ITS | Clinical Summary ---
Author Organization [facility] Healthcare Address [address] [place] [address] Care Team Providers Care Locker Room Attendant Name Role Phone Claude Hernández MD Primary Care Provider [phone] Social History Tobacco UseTypesPacks/DayYears UsedDateSmoking Tobacco: Never AssessedSex and Gender InformationValueDate RecordedSex Assigned at BirthNot on fileLegal Sex Male08/31/2022 7:17 PM EDTGender IdentityNot on fileSexual OrientationNot on file Last Filed Vital Signs Vital SignReadingTime TakenCommentsBlood Qgoxyyjw669/8408 12:00 PM EDT Pulse--Temperature--Respiratory Rate--Oxygen Saturation--Inhaled Oxygen Concentration--Mbkwjg720 kg (295 lb)01/20/2021 12:00 PM AGQUmzxin544.1 cm (5' 10.5 )01/20/2021 12:00 PM EDTBody Mass Index41.7301/20/2021 12:00 PM EDT Plan of Treatment Not on file Care Teams Team MemberRelationshipSpecialtyStart DateEnd Claude Hernández MD PCP - GeneralFamily Medicine10/07/24
--- OUTSIDE RECORDS SUMMARY | 2025-06-16 15:36 | XMS_ITS | Encounter Summary ---
Author Organization [facility] Address [address] [place] [address] Care Team Providers Care Systems Project Manager Name Role Phone Claude Hernández MD Primary Care Provider [phone] Encounter Details DateTypeDepartmentCare Team (Latest Contact Info)Qnlhjiqjvhy67/17/2025[facility] [address] [place] [address] Francheska Gerard MA Social History Tobacco UseTypesPacks/DayYears UsedDateSmoking Tobacco: FormerCigarettes Smokeless Tobacco: CurrentChewAlcohol UseStandard Drinks/WeekCommentsNot Currently0 (1 standard drink = 0.6 oz pure alcohol)[facility] UtilitiesAnswerDate RecordedIn the past 12 months [...] or living in a skilled nursing (including now)?No10/02/2024Hunger Vital SignAnswerDate Recorded Within the past 12 months, you worried that your food would run out before you got the money to buymore.Never true10/02/2024Ran Out of Food in the Last YearNot on file10/02/2024Sex and Gender InformationValueDate RecordedSex Assigned at EpoppHjxx53/07/2025 9:16 AM ESTLegal HkkMzwa4412/15/2021 10:50 PM EDTGender KvwsstbgBfqs60/07/2025 9:16 AM ESTSexual OrientationHeterosexual or Straight 04/25/2025 9:16 AM ESTdocumented as of this encounter Miscellaneous Notes * Telephone Encounter - Nadya Horton MA - 06/04/2025 12:29 PM EST Patient called back with readings: 144/86 156/92 126/69 156/95 136/66 122/76 148/91 131/82 146/88 140/70 143/76 137/74 146/92 136/72 146/83 126/76 161/96 122/74 143/88 120/76 128/72 116/72 HR 66 Says his HR ranges between 55-64. documented in this encounter Plan of Treatment DateTypeDepartmentCare Team (Latest Contact Info)Sjcqwpopbqm50/05/2026 10:40 AM ESTOffice Visit [facility] [address] [place] [address] Li Waldron MD [address] [place] [address] documented as of this encounter Visit Diagnoses Not on filedocumented in this encounter Care Teams Team MemberRelationshipSpecialtyStart DateEnd Date Claude Hernández MD [address] [facility] [place] [address] PCP - General10/02/24documented as of this encounter
[2025-06-16 16:22] LABS: Anion Gap 12.9; Blood Urea Nitrogen 19.0 mg/dL (7.0-18.0); Calcium 9.3 mg/dL (8.5-10.1); Carbon Dioxide 30.1 mmol/L (21.0-32.0); Chloride 106 mmol/L (98-107); Estimated GFR (African America 59 (>=60 mL/min/1.73m^2); Estimated GFR (Non-African Ame 49 (>=60 mL/min/1.73m^2); Glucose 69 mg/dL (74-106); Potassium 4.0 mmol/L (3.5-5.1); Sodium 145 mmol/L (136-145)
== END 2025-06-16 15:32 | disposition home or self-care (01) ==
PROVIDERS: PCP Family Medicine; Visit Provider Internal Medicine Cardiovascular Disease
DX: I11.9 Hypertensive heart disease without heart failure (principal)
CPT/HCPCS: 36415; 80048